=== PATIENT | male | born 1930 | race Caucasian/White ===

== ENCOUNTER 2018-02-13 19:45 | Emergency (ER) | payer OTHER ==
[2018-02-13 20:43] LABS: Urine Blood TRACE (NEG); Urine Glucose NEGATIVE (NEG); Urine Protein TRACE (NEG); Urine Specific Gravity 1.015 (1.005-1.030); Urine pH 7.5 (5.0-7.0)
[2018-02-13 20:44] LABS: Absolute Monocytes 0.9 K/uL (0.1-1.3); Absolute Neutrophil 6.5 K/uL (1.8-8.0); Basophils % 0.9 % (0-1.3); Eosinophils % 1.7 % (0-4.4); Lymphocytes % 27.8 % (15.3-44.8); MCH 27.6 pg (27.0-35.0); MCV 81.5 fL (80-100); MPV 8.8 fL (7.6-11.3); Monocytes % 8.6 % (3.3-12.3)
[2018-02-13 20:50] LABS: Protime INR 0.95
--- NOTE | 2018-02-13 21:24 | RAD REPORT ---
EXAM DESCRIPTION: Kristofer Single View02/13/2018 8:27 pm CLINICAL HISTORY: Chest pain COMPARISON: October 2017 FINDINGS: Haziness overlying the left base probably represents epicardial fat. The lungs appear clear of acute infiltrate. The heart is mildly enlarged. Postsurgical changes involv e the chest IMPRESSION: No acute abnormalities displayed
--- NOTE | 2018-02-14 02:34 | EDPHYS ---
Physician Documentation [facility] Name: Victor Hugo Damon Age: 87 yrs Sex: Male : 1930 Arrival Date: 02/13/2018 Time: 19:48 Bed 7 Private MD: ED Physician Erik Martinez HPI: 02/14 02:27 This 87 yrs old Male presents to ER via EMS with complaints of general gs weakness. 02:27 Onset: The symptoms/episode began/occurred today. Associated signs and symptoms: gs Pertinent negatives: altered mental status, paresthesias. Severity of symptoms: At their worst the symptoms were moderate in the emergency department the symptoms are unchanged. The patient has experienced similar episodes in the past, a few times. Historical: - Allergies: 02/13 20:07 PENICILLINS; ea - Home Meds: 20:07 aspirin 81 mg Oral TbEC 1 tab once daily [Active]; carvedilol 25 mg oral tab 1 tab 2 ea times per day [Active]; amlodipine 5 mg tab 1 tab once daily [Active]; prednisone 20 mg Oral tab 1 tab once daily [Active]; potassium chloride 10 mEq Oral cpER 1 cap once daily [Active]; losartan 50 mg oral tab 1 tab once daily [Active]; clopidogrel 75 mg oral tab 1 tab once daily [Active]; torsemide 10 mg oral tab 1 tab once daily [Active]; - PMHx: 20:07 Hypertension; ea - PSHx: 20:07 CABG; ea - Immunization history:: Adult Immunizations up to date. - Social history:: Smoking status: Patient/guardian denies using tobacco, the patient reports quitting approximately 30 years ago. ROS: 02/14 02:27 Constitutional: Negative for fever. gs Cardiovascular: Negative for chest pain. Respiratory: Negative for pleurisy, shortness of breath. Abdomen/GI: Negative for abdominal pain, nausea, vomiting, and diarrhea. Back: Negative for pain at rest. All other systems are negative. Exam: 02: Head/Face: Normocephalic, atraumatic. Eyes: Pupils equal round and reactive to light, gs extra-ocular motions intact. Lids and lashes normal. Conjunctiva and sclera are non-icteric and not injected. Cornea within normal limits. Periorbital areas with no swelling, redness, or edema. ENT: Nares patent. No nasal discharge, no septal abnormalities noted. Tympanic membranes are normal and external auditory canals are clear. Oropharynx with no redness, swelling, or masses, exudates, or evidence of obstruction, uvula midline. Mucous membranes moist. Neck: Trachea midline, no thyromegaly or masses palpated, and no cervical lymphadenopathy. Supple, full range of motion without nuchal rigidity, or vertebral point tenderness. No Meningismus. Chest/axilla: Normal chest wall appearance and motion. Nontender with no deformity. No lesions are appreciated. Respiratory: Lungs have equal breath sounds bilaterally, clear to auscultation and percussion. No rales, rhonchi or wheezes noted. No increased work of breathing, no retractions or nasal flaring. Abdomen/GI: Soft, non-tender, with normal bowel sounds. No distension or tympany. No guarding or rebound. No evidence of tenderness throughout. Back: No spinal tenderness. No costovertebral tenderness. Full range of motion. Skin: Warm, dry with normal turgor. Normal color with no rashes, no lesions, and no evidence of cellulitis. MS/ Extremity: Pulses equal, no cyanosis. Neurovascular intact. Full, normal range of motion. Neuro: Awake and alert, GCS 15, oriented to person, place, time, and situation. Cranial nerves II-XII grossly intact. Motor strength 5/5 in all extremities. Sensory grossly intact. Cerebellar exam normal. Normal gait. 02:27 Constitutional: The patient appears alert, awake. 02:27 Cardiovascular: Rate: normal, Rhythm: regular, Heart sounds: murmur, systolic, Edema: is not appreciated. 02:27 ECG was reviewed by the Attending Physician. Vital Signs: 02/13 19:23 BP 161 / 60; Pulse 81; Resp 20 S; Temp 98.7(O); Pulse Ox 95% on R/A; Weight 83.91 kg; ea Height 6 ft. 0 in. (182.88 cm) (M); Pain 0/10; 20:38 BP 141 / 56; Pulse 83; Resp 22 S; Pulse Ox 96% on R/A; ea 21:17 BP 141 / 60; Pulse 78; Resp 18 S; Pulse Ox 97% ; ea 22:30 BP 135 / 59; Pulse 79; Resp 18 S; Pulse Ox 98% on R/A; Pain 0/10; ea 23:30 BP 147 / 61; Pulse 83; Resp 19 S; Pulse Ox 97% on R/A; Pain 0/10; ea 02/14 00:30 BP 152 / 86; Pulse 89; Resp 18 S; Pulse Ox 97% on R/A; Pain 0/10; ea 01:45 BP 135 / 56; Pulse 73; Resp 18; Pulse Ox 98% on R/A; Pain 0/10; ea 02:00 BP 135 / 59; Pulse 79; Resp 18 S; Pulse Ox 98% on R/A; Pain 0/10; ea 03:45 BP 127 / 59; Pulse 72; Resp 18 S; Temp 98.0(O); Pulse Ox 98% on R/A; Pain 0/10; ea 04:50 BP 156 / 54; Pulse 77; Resp 19; Pulse Ox 97% on R/A; Pain 0/10; ea 05:30 BP 133 / 60; Pulse 73; Resp 18 S; Pulse Ox 97% ; ea 06:30 BP 112 / 60; Pulse 70; Resp 18 S; Temp 97.8; Pulse Ox 98% on R/A; ea 02/13 19:23 Body Mass Index 25.09 (83.91 kg, 182.88 cm) ea MDM: 02/13 20:01 Patient medically screened. 02/14 02:27 Data reviewed: vital signs, nurses notes. Response to treatment: the patient's symptoms gs have markedly improved after treatment, able to walk without assistance could get up , and as a result, I will discharge patient. 02/13 20:01 Order name: Basic Metabolic Panel 02/13 20:01 Order name: BNP 02/13 20:01 Order name: CBC with Diff 02/13 20:01 Order name: PT-INR 02/13 20:01 Order name: Troponin (emerg Dept Use Only) 02/13 20:26 Order name: Urine Dipstick--Ancillary (enter results) rg2 02/13 20:43 Order name: Urine Dipstick-Ancillary; Complete Time: 23:47 EDMS 02/13 20:46 Order name: CBC with Automated Diff; Complete Time: 23:47 EDMS 02/13 20:55 Order name: Basic Metabolic Panel; Complete Time: 23:47 EDMS 02/13 21:00 Order name: Protime (+INR); Complete Time: 23:47 EDMS 02/13 21:02 Order name: Troponin (Emerg Dept Use Only); Complete Time: 23:47 EDMS 02/13 21:05 Order name: BNP B-Type Natriuretic Peptide; Complete Time: 23:47 EDMS 02/14 00:22 Order name: Troponin I 02/14 01:33 Order name: Troponin I [facility] 02/13 20:01 Order name: XRAY Chest (1 view) 02/13 20:01 Order name: Cardiac monitoring; Complete Time: 20:12 02/13 20:01 Order name: EKG - Nurse/Tech; Complete Time: 20:34 02/13 20:01 Order name: IV Saline Lock; Complete Time: 20:34 02/13 20:01 Order name: Labs collected and sent; Complete Time: 20:34 02/13 20:01 Order name: O2 Per Protocol; Complete Time: 20:35 02/13 20:01 Order name: O2 Sat Monitoring; Complete Time: 20:35 02/13 20:01 Order name: Urine Dipstick-Ancillary (obtain specimen); Complete Time: 20:35 02/13 21:24 Order name: RAD; Complete Time: 23:47 EDMS EC:27 Rate is 83 beats/min. Rhythm is regular. ID interval is normal. QRS interval is normal. gs QT interval is normal. Clinical impression: NSR w/ Non-specific ST/T Changes. Interpreted by me. Administered Medications: No medications were administered Disposition: 02/14/18 02:33 Discharged to Home. Impression: Weakness. - Condition is Stable. - Discharge Instructions: Weakness. - Medication Reconciliation Form, Thank You Letter, Antibiotic Education, Prescription Opioid Use form. - Follow up: John Stahl MD; When: 2 - 3 days; Reason: Re-evaluation by your physician. Signatures: Dispatcher MedAmerican Academic Health SystemKimmie Bartlett RN RN ea Starr, Gregory, MD MD
--- NOTE | 2018-02-14 02:34 | ER ---
Nurse's Notes [facility] Name: Victor Hugo Damon Age: 87 yrs Sex: Male : 1930 Arrival Date: 02/13/2018 Time: 19:48 Bed 7 Private MD: Diagnosis: Weakness Presentation: 02/13 19:48 Presenting complaint: EMS states: Called to [facility] upon arrival patient was ea complaining of weakness. Pt reports he has to have a heart valve replaced but has not been scheduled for it. Transition of care: [facility]. Onset of symptoms was February 13, 2018. Care prior to arrival: None. 19:48 Method Of Arrival: EMS: [facility] ea 19:48 Acuity: ESTHELA 3 ea Triage Assessment: 19:23 General: Appears in no apparent distress. Behavior is calm, cooperative, appropriate ea for age. Pain: Denies pain. Neuro: Level of Consciousness is awake, alert, obeys commands, Oriented to person, place, time, situation, Speech is normal, Facial symmetry appears normal. Cardiovascular: Heart tones S1 S2 present Patient's skin is warm and dry. Respiratory: Airway is patent Respiratory effort is even, unlabored, Respiratory pattern is regular, symmetrical, Breath sounds are clear bilaterally. GI: Abdomen is round Bowel sounds present X 4 quads. Abd is soft and non tender X 4 quads. : No signs and/or symptoms were reported regarding the genitourinary system. Derm: No signs and/or symptoms reported regarding the dermatologic system. Musculoskeletal: No signs and/or symptoms reported regarding the musculoskeletal system. Musculoskeletal: Reports he has been feeling weak lately. Historical: - Allergies: 20:07 PENICILLINS; ea - Home Meds: 20:07 aspirin 81 mg Oral TbEC 1 tab once daily [Active]; carvedilol 25 mg oral tab 1 tab 2 ea times per day [Active]; amlodipine 5 mg tab 1 tab once daily [Active]; prednisone 20 mg Oral tab 1 tab once daily [Active]; potassium chloride 10 mEq Oral cpER 1 cap once daily [Active]; losartan 50 mg oral tab 1 tab once daily [Active]; clopidogrel 75 mg oral tab 1 tab once daily [Active]; torsemide 10 mg oral tab 1 tab once daily [Active]; - PMHx: 20:07 Hypertension; ea - PSHx: 20:07 CABG; ea - Immunization history:: Adult Immunizations up to date. - Social history:: Smoking status: Patient/guardian denies using tobacco, the patient reports quitting approximately 30 years ago. Screenin:10 Abuse screen: Denies threats or abuse. Nutritional screening: No deficits noted. ea Tuberculosis screening: No symptoms or risk factors identified. Fall Risk Gait- Weak (10 pts.). Assessment: 19:30 General: Appears in no apparent distress. Behavior is calm, cooperative, appropriate ea for age. Pain: Denies pain. Neuro: Level of Consciousness is awake, alert, obeys commands, Oriented to person, place, time, situation, Recycle Coordinator are equal bilaterally Moves all extremities. Speech is normal, Facial symmetry appears normal, Intact. Cardiovascular: Patient's skin is warm and dry. Respiratory: Airway is patent Respiratory effort is even, unlabored, Respiratory pattern is regular, symmetrical, Breath sounds are clear bilaterally. GI: Abdomen is round Bowel sounds present X 4 quads. Abd is soft and non tender X 4 quads. : No signs and/or symptoms were reported regarding the genitourinary system. EENT: No signs and/or symptoms were reported regarding the EENT system. Derm: Skin is pink, warm \T\ dry. 20:57 Reassessment: Patient and/or family updated on plan of care and expected duration. Pain ea level reassessed. Patient is alert, oriented x 3, equal unlabored respirations, skin warm/dry/pink. 21:17 Reassessment: Patient and/or family updated on plan of care and expected duration. Pain ea level reassessed. Patient is alert, oriented x 3, equal unlabored respirations, skin warm/dry/pink. 03/18 01:50 Reassessment: Patient and/or family updated on plan of care and expected duration. Pain ea level reassessed. Patient is alert, oriented x 3, equal unlabored respirations, skin warm/dry/pink. 02:15 Reassessment: Patient and/or family updated on plan of care and expected duration. Pain ea level reassessed. Patient is alert, oriented x 3, equal unlabored respirations, skin warm/dry/pink. pt ambulated approx. 20 feet with minimal assist, tolerated well. 03:37 Reassessment: Patient and/or family updated on plan of care and expected duration. Pain ea level reassessed. Patient is alert, oriented x 3, equal unlabored respirations, skin warm/dry/pink. Discharge instructions given to patient, verbalized the understanding of instruction. Awaiting on transportation. 04:25 Reassessment: Pt resting with eyes closed, respirations even and unlabored, chest ea expansions even and symmetrical, no s/s of pain or discomfort noted at this time. Attempted to call family Dane Degroot at [phone], voice message left. 05:45 Reassessment: Pt resting with eyes closed, respirations even and unlabored, chest ea expansions even and symmetrical, no s/s of pain or discomfort noted at this time. 06:22 Reassessment: Patient and/or family updated on plan of care and expected duration. Pain ea level reassessed. Patient is alert, oriented x 3, equal unlabored respirations, skin warm/dry/pink. Family member Dane Degroot called for ETA for [employer], reported she would be here in thirty minutes. Vital Signs: 02/13 19:23 BP 161 / 60; Pulse 81; Resp 20 S; Temp 98.7(O); Pulse Ox 95% on R/A; Weight 83.91 kg; ea Height 6 ft. 0 in. (182.88 cm) (M); Pain 0/10; 20:38 BP 141 / 56; Pulse 83; Resp 22 S; Pulse Ox 96% on R/A; ea 21:17 BP 141 / 60; Pulse 78; Resp 18 S; Pulse Ox 97% ; ea 22:30 BP 135 / 59; Pulse 79; Resp 18 S; Pulse Ox 98% on R/A; Pain 0/10; ea 23:30 BP 147 / 61; Pulse 83; Resp 19 S; Pulse Ox 97% on R/A; Pain 0/10; ea 02/14 00:30 BP 152 / 86; Pulse 89; Resp 18 S; Pulse Ox 97% on R/A; Pain 0/10; ea 01:45 BP 135 / 56; Pulse 73; Resp 18; Pulse Ox 98% on R/A; Pain 0/10; ea 02:00 BP 135 / 59; Pulse 79; Resp 18 S; Pulse Ox 98% on R/A; Pain 0/10; ea 03:45 BP 127 / 59; Pulse 72; Resp 18 S; Temp 98.0(O); Pulse Ox 98% on R/A; Pain 0/10; ea 04:50 BP 156 / 54; Pulse 77; Resp 19; Pulse Ox 97% on R/A; Pain 0/10; ea 05:30 BP 133 / 60; Pulse 73; Resp 18 S; Pulse Ox 97% ; ea 06:30 BP 112 / 60; Pulse 70; Resp 18 S; Temp 97.8; Pulse Ox 98% on R/A; ea 02/13 19:23 Body Mass Index 25.09 (83.91 kg, 182.88 cm) ea ED Course: 02/13 19:48 Patient arrived in ED. ea 19:53 Erik Martinez MD is Attending Physician. gs 20:01 Triage completed. ea 20:11 Kimmie Weathers RN is Primary Nurse. ea 20:11 Patient has correct armband on for positive identification. Placed in gown. Bed in low ea position. Call light in reach. Side rails up X2. 20:11 Arm band placed on right wrist. ea 02/14 02:32 John Stahl MD is Referral Physician. gs 04:07 No provider procedures requiring assistance completed. ea 06:35 IV discontinued, intact, bleeding controlled, No redness/swelling at site. Pressure ea dressing applied. Administered Medications: No medications were administered Outcome: 02:33 Discharge ordered by . gs 03:37 Discharge instructions given to patient, Instructed on discharge instructions, follow ea up and referral plans. Demonstrated understanding of instructions, follow-up care. 06:38 Discharged to home via wheelchair, with family. ea 06:38 Condition: improved 06:49 Patient left the ED. ea Signatures: Kimmie Weathers RN RN ea Starr, Gregory, MD MD Corrections: (The following items were deleted from the chart) 05:45 04:25 Reassessment: Pt resting with eyes closed, respirations even and unlabored, chest ea expansions even and symmetrical, no s/s of pain or discomfort noted at this time. ea 06:01 05:41 Reassessment: andres campos
--- NOTE | 2018-02-14 06:37 | EKG ---
Test Date: 2018-02-13 Test Time: 19:47:34 Menu Planner: MICHAEL MEASUREMENT RESULTS: Intervals: Rate: 82 IN: 176 QRSD: 86 QT: 368 QTc: 429 [place]: P: 58 IN: 176 QRS: 23 T: 121 INTERPRETIVE STATEMENTS: Normal sinus rhythm with sinus arrhythmia Possible Left atrial enlargement Nonspecific ST and T wave abnormality Abnormal ECG Compared to ECG 11/12/2017 22:00:58 Possible ischemia no longer present ST (T wave) deviation still present Electronically Signed On 02-14-18 06:35:23 CDT by Too Vallejo
[2018-02-14 07:06] VITALS: BP 112/60; TEMP 97.8; O2SAT 98
== END 2018-02-14 06:49 | disposition home or self-care (01) ==
LOC: ER 19:45
DX: R53.1 Weakness (principal); I10 Essential (primary) hypertension; Z95.1 Presence of aortocoronary bypass graft; Z88.0 Allergy status to penicillin; Z79.82 Long term (current) use of aspirin
CPT/HCPCS: 36415; 71045; 80048; 81003; 83880; 84484; 85025; 85610; 93005; 99283

== ENCOUNTER 2018-03-16 07:43 | Day surgery (SDC) | payer OTHER ==
[2018-03-16] MEDS ORDERED: NA CHLORIDE 0.9% 500 ML ONE (07:47)
[2018-03-16] MEDS ORDERED: LIDOCAINE 1% 20 ML MDV ONE (08:16)
[2018-03-16] MEDS ORDERED: NA CHLORIDE 0.9% 0 ML ONE (08:16)
[2018-03-16] MEDS ORDERED: HEPA 1000U/500MLS 2,000 UNIT/1,000 ML BAG IV ONE (08:16)
[2018-03-16] MEDS ORDERED: ATROPINE SULF 1 MG/10 ML SYR IV ONE (08:16)
[2018-03-16] MEDS ORDERED: MIDAZOLAM HCL 2 MG/2 ML INJ ONE (08:54)
[2018-03-16] MEDS ORDERED: NA CHLORIDE 0.9% 100 ML IV ONE (08:55)
[2018-03-16 10:31] VITALS: O2SAT 99
[2018-03-16 11:26] VITALS: BP 134/51
[2018-03-16 11:27] VITALS: TEMP 97
--- NOTE | 2018-03-16 20:36 | OP ---
Date of Procedure: 03/16/2018 Surgeon: Ian Wilson MD Machine Adjuster Leader Case Trim: Belle Kirk. Reason For Procedure: Severe aortic stenosis, symptomatic, and coronary artery disease and preparati on for a TAVR. Procedure In Detail: Mr. Damon is an 87, has had CAD, CABG, has known severe aortic stenosis with s ymptoms of dyspnea on exertion, chest pain, fatigue, shortness of breath. He was admitted to the cat [facility] lab before today for left and right heart catheterization as an outpatient. The patient had a 7-Italian sheath introduced in the right common femoral vein, a 6-Italian sheath intr oduced in the right common femoral arteries. Left heart catheterization revealed a completely occlud ed LAD with a patent FRASER to the LAD. He had a patent graft to the OM. His circumflex system was no rmal. RCA was completely occluded. He had a vein graft to the RCA that was normal with about 50% os tial posterior diagonal artery stenosis after the anastomosis of the graft. LV-gram was not done. E jection fraction is known to be normal by echo. Valve area was 0.6 cm sq. by echo. Right heart cath eterization was within normal limit with normal saturation, normal cardiac output about 4.8 L a minut e, normal pressures, normal wedge. The patient tolerated the procedure well. There were no complica tions. Total conscious sedation was 45 minutes. Blood loss was 5 cc. Operators: Ian Wilson M.D. Final Diagnosis: Critical aortic stenosis, patent graft to the FRASER, RCA and OM. Normal right heart catheterization. Plan: Plan is for TAVR. MAYE/ONESIMO Voice ID: [id number] Report ID: [id number]
== END 2018-03-16 11:43 | disposition home or self-care (01) ==
LOC: CCL 07:43
DX: I35.0 Nonrheumatic aortic (valve) stenosis (principal); I25.10 Atherosclerotic heart disease of native coronary artery without angina pectoris; I25.82 Chronic total occlusion of coronary artery; R07.89 Other chest pain; R06.02 Shortness of breath; I10 Essential (primary) hypertension; E78.5 Hyperlipidemia, unspecified; E78.6 Lipoprotein deficiency; R42 Dizziness and giddiness; Z95.1 Presence of aortocoronary bypass graft; Z88.0 Allergy status to penicillin
CPT/HCPCS: 93461; C1893; J2250; 93456; J0583

== ENCOUNTER 2018-07-11 12:24 | Observation (INO) | payer OTHER ==
--- OUTSIDE RECORDS SUMMARY | 2018-07-11 12:27 | XMS REPORT | Clinical Summary ---
:1930 Author Organization [facility] Address [address] [place] [address] Phone Care Team Providers Name Role Phone Unavailable Primary Care Provider Unavailable Allergies Active Allergy Reactions Severity Noted Date Comments Penicillins Swelling 04/19/2018 Current Medications Prescription Sig. Disp. Refills Start Date End Date Status carvedilol (COREG) 25 mg 2 (two) 02/08/2018 Active 25 MG times daily tabletIndications: with breakfast Severe aortic and dinner . stenosis torsemide (DEMADEX) 10 mg daily . 02/26/2018 Active 10 MG tabletIndications: Severe aortic stenosis VIT A/VIT C/VIT Take 1 capsule Active E/ZINC/COPPER by mouth 2 (OCUVITE (two) times PRESERVISION ORAL) daily . glimepiride (AMARYL) Take 0.5 30 tablet 0 05/30/2018 Active 1 MG tablet tablets (0.5 mg 9 total) by mouth daily with breakfast. clopidogrel (PLAVIX) Take 1 tablet 30 tablet 0 05/30/2018 Active 75 mg tablet (75 mg total) 9 by mouth daily. NIFEdipine (ADALAT Take 1 tablet 30 tablet 0 05/30/2018 Active CC) 90 MG 24 hr (90 mg total) 9 tablet by mouth daily. warfarin (COUMADIN) Take 1 tablet 30 tablet 0 05/29/2018 Active 7.5 MG tablet (7.5 mg total) 9 by mouth every other day. warfarin (COUMADIN) Take 1 tablet 30 tablet 0 05/29/2018 Active 5 MG tablet (5 mg total) by 9 mouth every other day. predniSONE Take 1 tablet 30 tablet 0 06/06/2018 Active (DELTASONE) 5 MG (5 mg total) by 8 tablet mouth daily for 60 days. losartan (COZAAR) 50 50 mg daily . 03/16/2018 Discontinued MG 8 tabletIndications: Severe aortic stenosis potassium chloride 10 mEq daily . 02/08/2018 Discontinued (KLOR-CON) 10 MEQ CR 8 tabletIndications: Severe aortic stenosis amLODIPine (NORVASC) 5 mg daily . 03/16/2018 Discontinued 5 MG 8 tabletIndications: Severe aortic stenosis predniSONE 20 mg daily . 02/22/2018 Discontinued (DELTASONE) 20 MG 8 tabletIndications: Severe aortic stenosis aspirin 81 MG EC Take 81 mg by Discontinued tabletIndications: mouth daily. 8 Severe aortic stenosis acetylcysteine (NAC) Take by mouth. Discontinued 600 mg Cap 8 QUEtiapine Take 0.5 30 tablet 0 05/29/2018 (SEROQUEL) 25 MG tablets (12.5 8 tablet mg total) by mouth nightly for 30 days. predniSONE Take 1.5 7 tablet 0 05/29/2018 (DELTASONE) 5 MG tablets (7.5 mg 8 tablet total) by mouth daily for 7 days. Active Problems Problem Noted Date Atrial fibrillation, transient (HCC) 05/29/2018 Urinary incontinence 05/29/2018 Altered mental status, unspecified 05/20/2018 Chronic diastolic CHF (congestive heart failure), NYHA class 3 ([facility]) 2017 Frailty 05/19/2018 Advanced age 0605/19/2018 Hyperlipidemia 04/28/2018 PVD (peripheral vascular disease) ([facility]) 04/28/2018 CKD (chronic kidney disease) 04/28/2018 Severe aortic stenosis Coronary artery disease Hypertension Carotid arterial disease ([facility]) Encounters Date Type Specialty Care Team Description 05/19/2018 - Hospital Encounter Cardiology Cristobal Moreno Advanced age; Severe 05/30/2018 MD Nelson aortic stenosis 05/19/2018 Orders Only General Internal Medicine 05/19/2018 Anesthesia Event Johnson Peralta MD 05/19/2018 Procedure Pass 05/19/2018 Surgery Cristobal Moreno TAVR / CHEO [facility] - IP MD Nelson PROC ONLY 04/21/2018 Hospital Encounter Cristobal Moreno MD 04/21/2018 Office Visit Cardiology Joseph Tsai Jinkins, MD unspecified hyperlipidemia type;PVD (peripheral vascular disease) ([facility]);Stage 2 chronic kidney disease 04/19/2018 Office Visit Cardiology Cipriano, Severe aortic Sudhir Alethea, stenosis;Coronary MD artery disease involving [place] coronary artery of [place] heart without angina pectoris;Essential hypertension;Carotid artery disease, unspecified laterality ([facility]) 04/19/2018 Hospital Encounter Radiology Cristobal Moreno Aortic valve stenosisNelson MD etiology of cardiac valve disease unspecified 04/19/2018 Hospital Encounter Radiology Cristobal Moreno Aortic valve stenosisNelson MD etiology of cardiac valve disease unspecified 04/15/2018 Outside Orders Central Scheduling Cristobal Moreno Aortic valve stenosisNelson MD etiology of cardiac valve disease unspecified (Primary Dx) after 07/10/2017 Family History Medical History Relation Name Comments Heart disease Brother Heart disease Father Cancer Mother Relation Name Status Comments Brother Father Mother Social History Tobacco Use Types Packs/Day Years Used Date Former Smoker Cigarettes 1.5 32 Quit: 01/28/1979 Smokeless Tobacco: Never Used Alcohol Use Drinks/Week oz/Week Comments No Sex Assigned at Date Recorded Not on file Last Filed Vital Signs Vital Sign Reading Time Taken Blood Pressure 149/67 05/30/2018 7:55 AM CDT Pulse 62 05/30/2018 7:55 AM CDT Temperature 36.5 C (97.7 F) 05/30/2018 7:55 AM CDT Respiratory Rate 18 05/30/2018 7:55 AM CDT Oxygen Saturation 98% 05/30/2018 7:55 AM CDT Inhaled Oxygen Concentration - - Weight 93.4 kg (205 lb 14.6 oz) 05/24/2018 6:00 AM CDT Height 182.9 cm (6') 05/24/2018 11:05 AM CDT Body Mass Index 27.93 05/24/2018 6:00 AM CDT Plan of Treatment Health Maintenance Due Date Last Done Comments INFLUENZA VACCINE 08/30/2018 Implants Implanted Type Area [employer] Device Expiration Date Model / Identifier Serial / Lot Valve Heart [place] 3 26mm [id number] - [id number] Valves PASTRANA [employer] [id number] / Implanted: Qty: 1 on 05/19/2018 by Cristobal Moreno MD [id number] / Procedures Procedure Name Priority Date/Time Associated Diagnosis Comments TAVR / CHEO MCR - IP 05/19/2018 7:30 AM Nonrheumatic aortic PROC ONLY CDT valve stenosis Case Notes (1) POP6 TAVR (CV ANES) DEVANTE Special Needs SCOT [phone]/SHAWN after 07/10/2017 Results RHYTHM STRIP - SCAN (06/01/2018 8:10 AM)POC-Glucose meter (05/30/2018 8:21 AM) Only the most recent of32 resultswithin the time period is included. Component Value Ref Range POC-Glucose Meter 112 (H)Comment: TESTED AT [address] 70 - 110 mg/[place] [id number] Specimen Performing Laboratory Blood [address] [address] Prothrombin time/INR (05/30/2018 4:31 AM)Only the most recent of8 resultswithin the time period is included. Component Value Ref Range Protime 22.3 (H) 11.7 - 14.7 seconds INR 2.0 <=5.9 Specimen Performing Laboratory Blood - Arm, Right [address] [address] Narrative RECOMMENDED COUMADIN/WARFARIN INR THERAPY RANGES STANDARD DOSE: 2.0 - 3.0 Includes: PROPHYLAXIS for venous thrombosis, systemic embolization; TREATMENT for venous thrombosis and/or pulmonary embolus. HIGH RISK: Target INR is 2.5-3.5 for patients with mechanical heart valves. CBC (Hemogram only) (05/30/2018 4:31 AM)Only the most recent of8 resultswithin the time period is included. Component Value Ref Range WBC 10.0 3.5 - 10.5 K/L RBC 3.44 (L) 4.63 - 6.08 M/L Hemoglobin 9.6 (L) 13.7 - 17.5 GM/DL Hematocrit 30.8 (L) 40.1 - 51.0 % MCV 89.5 79.0 - 92.2 fL MCH 27.9 25.7 - 32.2 pg MCHC 31.2 (L) 32.3 - 36.5 GM/DL RDW 16.1 (H) 11.6 - 14.4 % Platelets 169 150 - 450 K/CU MM MPV 11.5 9.4 - 12.4 fL nRBC 0 0 - 0 /100 WBC Specimen Performing Laboratory Blood - Arm, Right [address] [address] Basic Metabolic Panel (05/30/2018 4:31 AM)Only the most recent of11 resultswithin the time period is included. Component Value Ref Range Sodium 136 136 - 145 meq/L Potassium 3.7 3.5 - 5.1 meq/L Chloride 101 98 - 107 meq/L CO2 26 22 - 29 meq/L BUN 28 (H) 7 - 21 mg/dL Creatinine 1.31 (H) 0.57 - 1.25 mg/dL Glucose 74 70 - 105 mg/dL Calcium 8.9 8.4 - 10.2 mg/dL EGFR 52Comment: ESTIMATED GFR IS NOT ACCURATE mL/min/1.73 sq m CREATININE CLEARANCE IN PREDICTING GLOMERULAR FILTRATION RATE. ESTIMATED GFR IS NOT APPLICABLE FOR DIALYSIS PATIENTS. Specimen Performing Laboratory Blood - Arm, Right [address] [address] Magnesium (05/28/2018 5:53 AM)Only the most recent of9 resultswithin the time period is included. Component Value Ref Range Magnesium 2.3 1.6 - 2.6 mg/dL Specimen Performing Laboratory Blood - Arm, Left [address] [address] Transfuse Leuko-Red RBC (05/26/2018 1:11 PM)Only the most recent of2 resultswithin the time period is included.CBC with platelet count + automated diff (05/26/2018 6:27 AM)Only the most recent of3 resultswithin the time period is included. Component Value Ref Range WBC 12.2 (H) 3.5 - 10.5 K/L RBC 3.70 (L) 4.63 - 6.08 M/L Hemoglobin 10.6 (L) 13.7 - 17.5 GM/DL Hematocrit 33.2 (L) 40.1 - 51.0 % MCV 89.7 79.0 - 92.2 fL MCH 28.6 25.7 - 32.2 pg MCHC 31.9 (L) 32.3 - 36.5 GM/DL RDW 15.9 (H) 11.6 - 14.4 % Platelets 137 (L) 150 - 450 K/CU MM MPV 11.1 9.4 - 12.4 fL nRBC 0 0 - 0 /100 WBC % Neutros 54 % % Lymphs 33 % % Monos 8 % % Eos 3 % % Baso 0 % # Neutros 6.59 (H) 1.78 - 5.38 K/L # Lymphs 3.96 (H) 1.32 - 3.57 K/L # Monos 1.00 (H) 0.30 - 0.82 K/L # Eos 0.30 0.04 - 0.54 K/L # Baso 0.05 0.01 - 0.08 K/L Immature Granulocytes-Relative 2 (H) 0 - 1 % Specimen Performing Laboratory Blood - Arm, Right [address] [address] CBC with platelet count + automated diff (05/26/2018 6:27 AM)Only the most recent of3 resultswithin the time period is included. Specimen Performing Laboratory Blood Narrative The following orders were created for panel order CBC with platelet count + automated diff. Procedure Abnormality Status --------- ------ CBC with platelet count ...[[id number]]AbnormalFinal result Please view results for these tests on the individual orders. CT brain without IV contrast (05/25/2018 7:04 PM)Only the most recent of2 resultswithin the time period is included. Specimen Performing Laboratory [facility] RIS Narrative FINAL REPORT CT head without contrast 05/25/2018 7:14 PM CLINICAL HISTORY: encephalopathy TECHNIQUE: Axial noncontrast CT images through the head were obtained. This examination was performed according to our departmental dose optimization program, which includes automated exposure control, adjustment of the mA and/or kV according to patient size, and/or use of iterated reconstruction technique. COMPARISON: 05/23/2018 FINDINGS: There is no hemorrhage, extra-axial collection, mass, hydrocephalus, or midline shift. Again seen are multifocal punctate and small recent and chronic infarcts without hemorrhagic transformation or mass effect. There is atherosclerotic calcification of the intracranial arterial vasculature. There is generalized parenchymal volume loss. There is paranasal sinus mucosal thickening without fluid levels. There is evidence for prior sinus surgery. The tympanomastoid cavities are clear. The skull is unremarkable. The visualized paranasal sinuses and mastoid air cells are well aerated. The skull is intact. IMPRESSION: 1. No intracranial hemorrhage or mass effect. 2. Stable intracranial appearance when compared to 05/23/2018. 3. If concern for new pathology persists, further evaluation with MRI is recommended. Signed: Micheal Boykin MD Report Verified Date/Time:05/25/2018 19:17:21 Reading Location: [facility] Radiology Reading Room Procedure Note Interface, External Ris In - 05/25/2018 7:19 PM CDT FINAL REPORT CT head without contrast 05/25/2018 7:14 PM CLINICAL HISTORY: encephalopathy TECHNIQUE: Axial noncontrast CT images through the head were obtained. This examination was performed according to our departmental dose optimization program, which includes automated exposure control, adjustment of the mA and/or kV according to patient size, and/or use of iterated reconstruction technique. COMPARISON: 05/23/2018 FINDINGS: There is no hemorrhage, extra-axial collection, mass, hydrocephalus, or midline shift. Again seen are multifocal punctate and small recent and chronic infarcts without hemorrhagic transformation or mass effect. There is atherosclerotic calcification of the intracranial arterial vasculature. There is generalized parenchymal volume loss. There is paranasal sinus mucosal thickening without fluid levels. There is evidence for prior sinus surgery. The tympanomastoid cavities are clear. The skull is unremarkable. The visualized paranasal sinuses and mastoid air cells are well aerated. The skull is intact. IMPRESSION: 1. No intracranial hemorrhage or mass effect. 2. Stable intracranial appearance when compared to 05/23/2018. 3. If concern for new pathology persists, further evaluation with MRI is recommended. Signed: Micheal Boykin MD Report Verified Date/Time: 05/25/2018 19:17:21 Reading Location: [facility] Radiology Reading Room SFUSION SERVICE REPORT - SCAN (05/25/2018 6:00 PM)Only the most recent of4 resultswithin the time period is included.Prepare Leuko-Red RBC (05/24/2018 11: 54 PM) Component Value Ref Range CROSSMATCH COMPATIBLE Unit ABO O Pos UNIT NUMBER [id number] Status TRANSFUSED Blood Bank Product RED BLOOD CELLS PRODUCT CODE [id number] Specimen Performing Laboratory Other [employer] [place] Type and screen, automated (05/23/2018 11:30 AM)Only the most recent of2 resultswithin the time period is included. Component Value Ref Range ABO/RH AUTOMATED (BEAKER) O POSITIVE Ab Scrn NEGATIVE Specimen Performing Laboratory [address] [address] aPTT (05/23/2018 6:15 AM)Only the most recent of6 resultswithin the time period is included. Component Value Ref Range PTT 94.3 (H) 22.5 - 36.0 seconds Specimen Performing Laboratory Blood [address] [address] Iron, TIBC, % sat. (without ferritin) (05/23/2018 5:25 AM) Component Value Ref Range Iron 63 40 - 160 ug/dL TIBC 224 (L) 250 - 450 ug/dL Iron % Saturation 28 20 - 55 % Specimen Performing Laboratory Blood [address] [address] Ferritin (05/23/2018 5:25 AM) Component Value Ref Range Ferritin 435 (H) 5 - 275 ng/mL Specimen Performing Laboratory [address] [address] ECG 12 lead (05/22/2018 1:56 PM)Only the most recent of4 resultswithin the time period is included. Specimen Performing Laboratory GE MUSE Narrative Ventricular Rate 80 BPM Atrial Rate 80 BPM P-R Interval 164 ms QRS Duration 100 ms Q-T Interval 394 ms QTC Calculation(Bazett) 454 ms P [place] 23 degrees R Lead[place] 29 degrees T [place] 194 degrees Sinus rhythm with marked sinus arrhythmia ST & T wave abnormality, consider inferolateral ischemia Abnormal ECG When compared with ECG of 20-MAY-2018 06:03, ST no longer depressed in Lateral leads T wave inversion now evident in Inferior leads T wave inversion now evident in Anterior leads Confirmed by MD TERESA, SHANE ([id number]) on 05/22/2018 2:20:53 PM Procedure Note Interface, External Ris In - 05/22/2018 2:21 PM CDT Ventricular Rate 80 BPM Atrial Rate 80 BPM P-R Interval 164 ms QRS Duration 100 ms Q-T Interval 394 ms QTC Calculation(Bazett) 454 ms P [place] 23 degrees R [place] 29 degrees T [place] 194 degrees Sinus rhythm with marked sinus arrhythmia ST & T wave abnormality, consider inferolateral ischemia Abnormal ECG When compared with ECG of 20-MAY-2018 06:03, ST no longer depressed in Lateral leads T wave inversion now evident in Inferior leads T wave inversion now evident in Anterior leads Confirmed by MD MOORE ZVONIMIR ([id number]) on 05/22/2018 2:20:53 PM PT/aPTT (05/22/2018 2:19 AM)Only the most recent of3 resultswithin the time period is included. Component Value Ref Range Protime 15.0 (H) 11.7 - 14.7 seconds INR 1.2 <=5.9 PTT 179.7 (HH) 22.5 - 36.0 seconds Specimen Performing Laboratory Blood [address] [address] Narrative RECOMMENDED COUMADIN/WARFARIN INR THERAPY RANGES STANDARD DOSE: 2.0 - 3.0 Includes: PROPHYLAXIS for venous thrombosis, systemic embolization; TREATMENT for venous thrombosis and/or pulmonary embolus. HIGH RISK: Target INR is 2.5-3.5 for patients with mechanical heart valves. Calcium, Ionized (05/22/2018 2:19 AM)Only the most recent of2 resultswithin the time period is included. Component Value Ref Range Calcium, Ion 1.15 1.12 - 1.27 mmol/L pH, Blood 7.40 Specimen Performing Laboratory Blood [address] [address] Phosphorus (05/22/2018 2:19 AM)Only the most recent of3 resultswithin the time period is included. Component Value Ref Range Phosphorus 3.6 2.3 - 4.7 mg/dL Specimen Performing Laboratory Blood [address] [address] Vancomycin level, random (05/22/2018 2:19 AM) Component Value Ref Range Vancomycin Rm 24.4 ug/mL Specimen Performing Laboratory Blood [facility] [address] [place] [address] Narrative Reference Range: No Normals MR brain without IV contrast (05/21/2018 11:53 AM) Specimen Performing Laboratory GE RIS Narrative FINAL REPORT MRI Brain without contrast Clinical History: Stroke Technique: MRI of the brain utilizing axial T2, FLAIR, GRE, DWI; sagittal and coronal T1-weighted images. Comparisons: CT 05/19/2018 Findings: There is multifocal acute infarction throughout the left greater than right cerebral hemispheres and bilateral cerebellum. There are chronic right frontal and parietal lobe infarcts. There is a chronic lacunar infarct right caudate. There is no evidence of acute hemorrhage. There is small focal hemosiderin in the right frontal lobe. There is periventricular and subcortical white matter T2 hyperintensity, which is nonspecific but compatible with chronic microvascular ischemic change. There is generalized parenchymal volume loss without hydrocephalus, midline shift, or apparent mass effect. There are no extra-axial fluid collections. The craniocervical junction is preserved. The major intracranial flow-voids appear patent. 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 Clinical correlation is requested. 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 No acute hemorrhage. Signed: Jaycob Alvarado MD Report Verified Date/Time:05/21/2018 11:58:08 Reading Location: [facility] Neuro Reading Room Procedure Note Interface, External Ris In - 05/21/2018 12:00 PM CDT FINAL REPORT MRI Brain without contrast Clinical History: Stroke Technique: MRI of the brain utilizing axial T2, FLAIR, GRE, DWI; sagittal and coronal T1-weighted images. Comparisons: CT 05/19/2018 Findings: There is multifocal acute infarction throughout the left greater than right cerebral hemispheres and bilateral cerebellum. There are chronic right frontal and parietal lobe infarcts. There is a chronic lacunar infarct right caudate. There is no evidence of acute hemorrhage. There is small focal hemosiderin in the right frontal lobe. There is periventricular and subcortical white matter T2 hyperintensity, which is nonspecific but compatible with chronic microvascular ischemic change. There is generalized parenchymal volume loss without hydrocephalus, midline shift, or apparent mass effect. There are no extra-axial fluid collections. The craniocervical junction is preserved. The major intracranial flow-voids appear patent. 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 Clinical correlation is requested. 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 No acute hemorrhage. Signed: Jaycob Alvarado MD Report Verified Date/Time: 05/21/2018 11:58:08 Reading Location: [address] Neuro Reading Room neck without IV contrast (05/21/2018 11:53 AM) Specimen Performing Laboratory [employer] RIS Narrative FINAL REPORT MRA Head and Neck CLINICAL HISTORY: Stroke TECHNIQUE: MRA of the head utilizing 3-D okrw-zl-mtcccl technique, with 3-D reconstructions. MRA of the neck utilizing 2-D and 3-D iwje-eg-cmgpzw technique, with 3-D reconstructions. COMPARISON: None FINDINGS: There is no evidence for a [place] proximal branch vessel occlusion. There is no definitive evidence for aneurysm. 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 There is mild to moderate stenosis of the bilateral proximal anterior cerebral arteries in the proximal left middle cerebral artery. There is 20% stenosis of the proximal right internal carotid artery by NASCET criteria. There is no focal narrowing of the proximal left internal carotid artery. There are mild stenoses of the bilateral cervical vertebral arteries. IMPRESSION: No evidence for a [place] proximal branch vessel occlusion. No hemodynamically significant stenosis in the internal carotid arteries. 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 Signed: Jaycob Alvarado MD Report Verified Date/Time:05/21/2018 12:04:26 Reading Location: [address] Neuro Reading Room Procedure Note Interface, External Ris In - 05/21/2018 12:06 PM CDT FINAL REPORT MRA Head and Neck CLINICAL HISTORY: Stroke TECHNIQUE: MRA of the head utilizing 3-D pdjh-mg-nfxlnj technique, with 3-D reconstructions. MRA of the neck utilizing 2-D and 3-D yznn-si-akdzco technique, with 3-D reconstructions. COMPARISON: None FINDINGS: There is no evidence for a [place] proximal branch vessel occlusion. There is no definitive evidence for aneurysm. 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 There is mild to moderate stenosis of the bilateral proximal anterior cerebral arteries in the proximal left middle cerebral artery. There is 20% stenosis of the proximal right internal carotid artery by NASCET criteria. There is no focal narrowing of the proximal left internal carotid artery. There are mild stenoses of the bilateral cervical vertebral arteries. IMPRESSION: No evidence for a [place] proximal branch vessel occlusion. No hemodynamically significant stenosis in the internal carotid arteries. 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 Signed: Jaycob Alvarado MD Report Verified Date/Time: 05/21/2018 12:04:26 Reading Location: [address] Neuro Reading Room head without IV contrast (05/21/2018 11:53 AM) Specimen Performing Laboratory [employer] FINAL REPORT MRA Head and Neck CLINICAL HISTORY: Stroke TECHNIQUE: MRA of the head utilizing 3-D bixx-yp-aiigrp technique, with 3-D reconstructions. MRA of the neck utilizing 2-D and 3-D tvpg-td-wbbeif technique, with 3-D reconstructions. COMPARISON: None FINDINGS: There is no evidence for a [place] proximal branch vessel occlusion. There is no definitive evidence for aneurysm. 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 There is mild to moderate stenosis of the bilateral proximal anterior cerebral arteries in the proximal left middle cerebral artery. There is 20% stenosis of the proximal right internal carotid artery by NASCET criteria. There is no focal narrowing of the proximal left internal carotid artery. There are mild stenoses of the bilateral cervical vertebral arteries. IMPRESSION: No evidence for a [place] proximal branch vessel occlusion. No hemodynamically significant stenosis in the internal carotid arteries. 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 Signed: Jaycob Alvarado MD Report Verified Date/Time:05/21/2018 12:04:26 Reading Location: [place] [id number] Neuro Reading Room Procedure Note Interface, External Ris In - 05/21/2018 12:06 PM CDT FINAL REPORT MRA Head and Neck CLINICAL HISTORY: Stroke TECHNIQUE: MRA of the head utilizing 3-D jrwb-bq-vsqnha technique, with 3-D reconstructions. MRA of the neck utilizing 2-D and 3-D iavm-oj-ozayrr technique, with 3-D reconstructions. COMPARISON: None FINDINGS: There is no evidence for a [place] proximal branch vessel occlusion. There is no definitive evidence for aneurysm. 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 There is mild to moderate stenosis of the bilateral proximal anterior cerebral arteries in the proximal left middle cerebral artery. There is 20% stenosis of the proximal right internal carotid artery by NASCET criteria. There is no focal narrowing of the proximal left internal carotid artery. There are mild stenoses of the bilateral cervical vertebral arteries. IMPRESSION: No evidence for a [place] of [place] proximal branch vessel occlusion. No hemodynamically significant stenosis in the internal carotid arteries. 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 Signed: Jaycob Alvarado MD Report Verified Date/Time: 05/21/2018 12:04:26 Reading Location: [facility] C013V Neuro Reading Room chest 1 view portable / bedside (05/21/2018 7:27 AM)Only the most recent of2 resultswithin the time period is included. Specimen Performing Laboratory GE RIS Narrative FINAL REPORT Portable chest CLINICAL HISTORY: Hypoxemia. COMPARISON STUDY: May 19, 2018. FINDINGS: The cardiac silhouette is unremarkable. The patient is status post sternotomy and valve replacement. There are increased interstitial markings with atelectatic changes in the lung bases and costophrenic angle blunting. No pneumothorax is noted. Degenerative changes are seen. IMPRESSION: No significant change. Signed: Addy Zapata MD Report Verified Date/Time:05/21/2018 10:54:40 Reading Location: [place] [id number] Ortho Consult Reading Room Procedure Note Interface, External Ris In - 05/21/2018 10:56 AM CDT FINAL REPORT Portable chest CLINICAL HISTORY: Hypoxemia. COMPARISON STUDY: May 19, 2018. FINDINGS: The cardiac silhouette is unremarkable. The patient is status post sternotomy and valve replacement. There are increased interstitial markings with atelectatic changes in the lung bases and costophrenic angle blunting. No pneumothorax is noted. Degenerative changes are seen. IMPRESSION: No significant change. Signed: Addy Zapata MD Report Verified Date/Time: 05/21/2018 10:54:40 Reading Location: [address] Ortho Consult Reading Room /Free T4 If Indicated (05/21/2018 2:59 AM) Component Value Ref Range TSH 0.77 0.35 - 4.94 uIU/mL Specimen Performing Laboratory Blood [address] [address] Hemoglobin A1c (05/21/2018 2:59 AM) Component Value Ref Range Hemoglobin A1C 8.1 (H) 4.3 - 6.1 % Specimen Performing Laboratory Blood [address] [address] Vitamin B12 (05/21/2018 2:59 AM) Component Value Ref Range Vitamin B12 692 213 - 816 pg/mL Specimen Performing Laboratory Blood [address] [address] Lipid panel (05/21/2018 2:59 AM) Component Value Ref Range Triglycerides 348 mg/dL Cholesterol 208 mg/dL HDL 26 mg/dL LDL Calculated 112 mg/dL Specimen Performing Laboratory Blood [address] [address] Narrative Triglyceride Reference Range: Low Risk <150 [id number] High Risk 200-499 Very High Risk>=500 Cholesterol Reference Range: Low Risk <200 [id number] High Risk>240 HDL Cholesterol Reference Range: Low Risk >=60 High Risk <40 LDL Cholesterol Reference Range: Optimal<100 Near Sctcsgc008-419 Hxsjfpmosl965-362 Ilau049-363 Very High >=190 ECHOCARDIOGRAM REPORT - SCAN (05/20/2018 6:50 PM)Only the most recent of2 resultswithin the time period is included.CARDIAC CATH REPORT - SCAN (2017 3:41 PM)EEG AWAKE AND DROWSY (05/20/2018 2:38 PM) Specimen Performing Laboratory [place] Narrative Date(s) of EE05/20/2018 DATE OF REPORT: 05/20/2018 ACC: [id number] EEG Number: [id number] Test Location: Inpatient ICU Start time: 14:17 Stop time: 14:38 ICD-10: R56.9 CPT Code: 73867 HISTORY: 87 y.o. 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 On nursing reassessment ~7:30pm, he was noted to be drowsy w/ slurring of speech though reportedly answering all orientation questions. Current symptoms include lethargy, slurred speech, possible R facial droop, and possible R hand weakness. Symptoms are currently waxing and waning. MEDICATIONS THAT COULD AFFECT EEG: None TECHNICAL SUMMARY: This is a digital video-EEG recorded with 32 input channels reviewed with bipolar and referential montages using the modified combinatorial system nomenclature. DESCRIPTION OF RECORD: During the stimulated state, the background frequency spectrum consists primarily of diffuse, 4-6 Hz theta, 2-3 Hz widespread but fronto-centrally predominant delta, as well as some diffuse beta. At times, there are occasional left-sided parietal sharply contoured waveforms (maximal at P7) with a limited field. Neither an occipital dominant rhythm, nor an organized frequency amplitude gradient is well demonstrable. SIGNIFICANT VIDEO EVENTS: None SIGNIFICANT ELECTROCARDIOGRAM EVENTS: None HV: Hyperventilation was not performed. PHOTIC STIMULATION: Photic stimulation was done from 1-33 Hz; no photic driving was seen; photoparoxysmal responses were absent. IMPRESSION: Abnormal Coma EEG 1-Moderate diffuse slowing of the background rhythms 2-Possible sharp waves maximal at P7. CLINICAL CORRELATION: Diffuse slowing supports an underlying moderate encephalopathy, possibly of metabolic origin. In the appropriate clinical context, focal sharp waves can indicate a potential seizure focus. . Kita Rooney MD Neurophysiology Fellow, PGY5 Linette Choe MD Attending Neurophysiologist [facility] Procedure Note Interface, External Ris In - 05/20/2018 3:54 PM CDT Date(s) of EE05/20/2018 DATE OF REPORT: 05/20/2018 ACC: [id number] EEG Number: [id number] Test Location: Inpatient ICU Start time: 14:17 Stop time: 14:38 ICD-10: R56.9 CPT Code: 91704 HISTORY: 87 y.o. 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 On nursing reassessment ~7:30pm, he was noted to be drowsy w/ slurring of speech though reportedly answering all orientation questions. Current symptoms include lethargy, slurred speech, possible R facial droop, and possible R hand weakness. Symptoms are currently waxing and waning. MEDICATIONS THAT COULD AFFECT EEG: None TECHNICAL SUMMARY: This is a digital video-EEG recorded with 32 input channels reviewed with bipolar and referential montages using the modified combinatorial system nomenclature. DESCRIPTION OF RECORD: During the stimulated state, the background frequency spectrum consists primarily of diffuse, 4-6 Hz theta, 2-3 Hz widespread but fronto-centrally predominant delta, as well as some diffuse beta. At times, there are occasional left-sided parietal sharply contoured waveforms (maximal at P7) with a limited field. Neither an occipital dominant rhythm, nor an organized frequency amplitude gradient is well demonstrable. SIGNIFICANT VIDEO EVENTS: None SIGNIFICANT ELECTROCARDIOGRAM EVENTS: None HV: Hyperventilation was not performed. PHOTIC STIMULATION: Photic stimulation was done from 1-33 Hz; no photic driving was seen; photoparoxysmal responses were absent. IMPRESSION: Abnormal Coma EEG 1- Moderate diffuse slowing of the background rhythms 2- Possible sharp waves maximal at P7. CLINICAL CORRELATION: Diffuse slowing supports an underlying moderate encephalopathy, possibly of metabolic origin. In the appropriate clinical context, focal sharp waves can indicate a potential seizure focus. . Kita Rooney MD Neurophysiology Fellow, PGY5 Linette Choe MD Attending Neurophysiologist [facility] abdomen / KUB 1 view (05/20/2018 11:22 AM) Specimen Performing Laboratory GE RIS Narrative FINAL REPORT Abdomen one view INDICATION: Nasogastric tube insertion COMPARISON: None available IMPRESSION: NG tube extends to the gastric body. The imaged bowel gas pattern is nonspecific. There are degenerative spine changes and incidental vascular calcifications. The imaged chest is similar to 05/19/2018. Signed: Virgil Kraft MD Report Verified Date/Time:05/20/2018 11:33:02 Reading Location: [facility] Radiology Reading Room Procedure Note Interface, External Ris In - 05/20/2018 11:35 AM CDT FINAL REPORT Abdomen one view INDICATION: Nasogastric tube insertion COMPARISON: None available IMPRESSION: NG tube extends to the gastric body. The imaged bowel gas pattern is nonspecific. There are degenerative spine changes and incidental vascular calcifications. The imaged chest is similar to 05/19/2018. Signed: Virgil Kraft MD Report Verified Date/Time: 05/20/2018 11:33:02 Reading Location: [facility] Radiology Reading Room Troponin I (05/20/2018 11:05 AM)Only the most recent of2 resultswithin the time period is included. Component Value Ref Range Troponin I 1.13 (HH) 0.00 - 0.03 ng/mL Specimen Performing Laboratory Blood - Arm, [place] [address] Narrative Troponin I (TnI) levels must be interpreted in the context of the presenting symptoms and the clinical findings. Elevated TnI levels indicate myocardial damage, but are not specific for ischemic heart disease. Elevated TnI levels are seen in patients with other cardiac conditions (including myocarditis and congestive heart failure), and slight TnI elevations occur in patients with other conditions, including sepsis, renal failure, acidosis, acute neurological disease, and persistent tachyarrhythmia. Lactic acid, venous, whole blood (05/20/2018 11:05 AM) Component Value Ref Range Lactate, Venous 2.1 0.5 - 2.2 mmol/L Specimen Performing Laboratory Blood - Arm, [address] [address] Narrative Effective 04/02/2016: Units/Reference Range Change New: 0.5-2.2 mmol/LPrevious: 5-20 mg/dL Blood gas, venous (05/20/2018 11:05 AM) Component Value Ref Range pH, Phil 7.40 7.32 - 7.42 pCO2, Phil 45 41 - 51 mmHg pO2, Phil 26 25 - 40 mmHg O2 Sat, Phil 46.3 40.0 - 70.0 % HCO3, Phil 27 21 - 29 mmol/L Base Excess, Phil 1.8 -2.0 - 3.0 mmol/L Patient Temperature 36.9 C FIO2 36.0 % Specimen Performing Laboratory Blood - Arm, [address] [address] Creatine Kinase (CK), Total and MB (05/20/2018 11:05 AM)Only the most recent of2 resultswithin the time period is included. Component Value Ref Range Total CK 138 29 - 200 U/L CK-MB 4.2 0.0 - 6.6 ng/mL MB Relative Index 3.0 % Specimen Performing Laboratory Blood - Arm, [address] [address] Narrative CK-MB Reference Range: <6.7Normal 6.7-10.0Borderline >10.0 Abnormal Comprehensive metabolic panel (05/20/2018 11:05 AM)Only the most recent of2 resultswithin the time period is included. Component Value Ref Range Protein, Total 5.7 (L) 6.0 - 8.3 gm/dL Albumin 3.4 (L) 3.5 - 5.0 g/dL Alkaline Phosphatase 42 40 - 150 U/L Total Bilirubin 0.8 0.2 - 1.2 mg/dL Sodium 139 136 - 145 meq/L Potassium 4.2 3.5 - 5.1 meq/L Chloride 100 98 - 107 meq/L CO2 23 22 - 29 meq/L BUN 38 (H) 7 - 21 mg/dL Creatinine 2.17 (H) 0.57 - 1.25 mg/dL Glucose 129 (H) 70 - 105 mg/dL Calcium 9.0 8.4 - 10.2 mg/dL AST 27 5 - 34 U/L ALT 14 6 - 55 U/L EGFR 29Comment: ESTIMATED GFR IS NOT ACCURATE mL/min/1.73 sq m CREATININE CLEARANCE IN PREDICTING GLOMERULAR FILTRATION RATE. ESTIMATED GFR IS NOT APPLICABLE FOR DIALYSIS PATIENTS. Specimen Performing Laboratory Blood - Arm, Right [facility] [address] [address] 2D Echo W/Doppler(CW/PW/Color) (05/20/2018 9:24 AM)Only the most recent of2 resultswithin the time period is included. Component Value Ref Range Ejection Fraction Specimen Performing Laboratory [facility] MKCKESSON CPACS Narrative Transthoracic Echocardiography Report (TTE) Demographics Patient Name Catherine SEXTON of Study 05/20/2018 IROS [id number] Male Visit Number [id number] Room Number 8A11 Number Date of Birth1930Referring Physician Cristobal Moreno MD Age87 year(s)Sole Seamer Jamari Matute [facility] AnalystAlex Zade Interpreting Andrews Bejarano, Physician Procedure Type of Study TTE procedure:2DECHO W/CONTRAST & DOPPLER (STAT) Indications:Initial post operative evaluation of prosthetic valve. Clinical History Congestive Heart Failure Coronary Artery Disease Dyspnea on exertion Murmur Hyperlipidemia Hypertension Valvular heart disease, aortic stenosis Shortness of Breath S/P Coronary Angioplasty 2002 S/P CABG HGB 10.6 HCT 34.3 % Contrast Medium: Definity. Amount - 2 ml Height: 72 inches Weight: 90.72 kg (200 lbs) BSA: 2.13 m^2 BMI: 27.12 kg/m^2 HR: 76 bpm BP: 111/40 mmHg Summary Technically difficult exam. The left ventricle is chamber size (by PSLAX dimension) is normal (male - LVIDd 4.2-5.8cm) . Mild concentric LV hypertrophy. All of the LV segments are hyperkinetic . Estimated LVEF by qualitative assessment is increased (>70%) . Grade 1 diastolic dysfunction (impaired relaxation and low-normal LA pressure). Normal right ventricle structure and function. The prosthetic AoV appears well-seated with normal function by Doppler. Unable to estimate peak systolic PA pressure; inadequate TR velocity signal. Signature Findings Technical Quality: Technically difficult exam. Left Ventricle The left ventricle is chamber size (by PSLAX dimension) is normal (male - LVIDd 4.2-5.8cm) . Mild concentric LV hypertrophy. All of the LV segments are hyperkinetic . Estimated LVEF by qualitative assessment is increased (>70%) . Grade 1 diastolic dysfunction (impaired relaxation and low-normal LA pressure). Left AtriumLA size is normal . Right VentricleNormal right ventricle structure and function. Right Atrium Normal right atrium. Aortic Valve A percutaneous (TAVR) biologic AoV prosthesis is visualized . The prosthetic AoV appears well-seated with normal function by Doppler. Mitral Valve Mild MV leaflet thickening. Mild to moderate mitral annular calcification. Tricuspid ValveTV is partially visualized. Unable to estimate peak systolic PA pressure; inadequate TR velocity signal. Pulmonic Valve PV is not well visualized. AortaAortic root size (SInus of Valsalva diameter) is normal . PericardiumNo evidence of pericardial effusion. IVC/SVC/PA/PV/PleuralThe estimated RA pressure by IVC dynamics 0-5mmHg . Chambers/Structures Left Atrium LA Dimension: 4.59 cm LA Area: 19.8 cm^2 LA Volume: 58.35 ml LA Vol. Index: 27 ml/m^2 Left Ventricle LVIDd: 4.94 cm LV Septum Diastolic: 1.3 cm LV PW Diastolic: 1.21 cm Aorta Ao Root S of Lili.: 3.24 cm Doppler/Quantitative Measurements Aortic Valve Peak Velocity: 1.51 m/sMean Velocity: 1.03 m/s Peak Gradient: 9.12 mmHg Mean Gradient: 4.95 mmHg AV VTI: 20.23 cm AV DVI: 1.1 LVOT Peak Velocity: 1.19 m/s Peak Gradient: 5.7 mmHg Mean Velocity: 0.78 m/s Mean Gradient: 2.91 mmHg LVOT VTI: 22.17 cm Procedure Note Interface, External Ris In - 05/20/2018 6:08 PM CDT Transthoracic Echocardiography Report (TTE) Demographics Patient Name GLENN SEXTON Date of Study 05/20/2018 RIOS Gender Male Visit Number [id number] Race Room Number 8A11 Number Date of 1930 Referring Physician Cristobal Moreno MD Age 87 year(s) Sole Seamer Jamari Matute [facility] 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 Clinical History Congestive Heart Failure Coronary Artery Disease Dyspnea on exertion Murmur Hyperlipidemia Hypertension Valvular heart disease, aortic stenosis Shortness of Breath S/P Coronary Angioplasty 2002 S/P CABG HGB 10.6 HCT 34.3 % Contrast Medium: Definity. Amount - 2 ml Height: 72 inches Weight: 90.72 kg (200 lbs) BSA: 2.13 m^2 BMI: 27.12 kg/m^2 HR: 76 bpm BP: 111/40 mmHg Summary Technically difficult exam. The left ventricle is chamber size (by PSLAX dimension) is normal (male - LVIDd 4.2-5.8cm) . Mild concentric LV hypertrophy. All of the LV segments are hyperkinetic . Estimated LVEF by qualitative assessment is increased (>70%) . Grade 1 diastolic dysfunction (impaired relaxation and low-normal LA pressure). Normal right ventricle structure and function. The prosthetic AoV appears well-seated with normal function by Doppler. Unable to estimate peak systolic PA pressure; inadequate TR velocity signal. Signature Findings Technical Quality: Technically difficult exam. Left Ventricle The left ventricle is chamber size (by PSLAX dimension) is normal (male - LVIDd 4.2-5.8cm) . Mild concentric LV hypertrophy. All of the LV segments are hyperkinetic . Estimated LVEF by qualitative assessment is increased (>70%) . Grade 1 diastolic dysfunction (impaired relaxation and low-normal LA pressure). Left Atrium LA size is normal . Right Ventricle Normal right ventricle structure and function. Right Atrium Normal right atrium. Aortic Valve A percutaneous (TAVR) biologic AoV prosthesis is visualized . The prosthetic AoV appears well-seated with normal function by Doppler. Mitral Valve Mild MV leaflet thickening. Mild to moderate mitral annular calcification. Tricuspid Valve TV is partially visualized. Unable to estimate peak systolic PA pressure; inadequate TR velocity signal. Pulmonic Valve PV is not well visualized. Aorta Aortic root size (SInus of Valsalva diameter) is normal . Pericardium No evidence of pericardial effusion. IVC/SVC/PA/PV/Pleural The estimated RA pressure by IVC dynamics 0-5mmHg . Chambers/Structures Left Atrium LA Dimension: 4.59 cm LA Area: 19.8 cm^2 LA Volume: 58.35 ml LA Vol. Index: 27 ml/m^2 Left Ventricle LVIDd: 4.94 cm LV Septum Diastolic: 1.3 cm LV PW Diastolic: 1.21 cm Aorta Ao Root S of Lili.: 3.24 cm Doppler/Quantitative Measurements Aortic Valve Peak Velocity: 1.51 m/s Mean Velocity: 1.03 m/s Peak Gradient: 9.12 mmHg Mean Gradient: 4.95 mmHg AV VTI: 20.23 cm AV DVI: 1.1 LVOT Peak Velocity: 1.19 m/s Peak Gradient: 5.7 mmHg Mean Velocity: 0.78 m/s Mean Gradient: 2.91 mmHg LVOT VTI: 22.17 cm Urinalysis w/Microscopic (05/19/2018 11:32 PM) Component Value Ref Range Color, UA Yellow Clarity, UA Clear Specific Dodson, UA 1.017 1.001 - 1.035 pH, UA 5.0 5.0 - 8.0 Protein, UA Negative Negative Glucose, UA Negative Negative Ketones, UA Negative Negative Bilirubin, UA Negative Negative Blood, UA Small (A) Negative Nitrite, UA Negative Negative Leukocytes, UA Negative Negative Urobilinogen, UA 0.2 0.2 - 1.0 mg/dL RBC, UA 12 /HPF WBC, UA 1 /HPF Mucus Rare Amorphous Crystals Occasional Specimen Source Urine, [place] Specimen Performing Laboratory Urine - Urine, [address] [address] Urine culture (05/19/2018 11:31 PM) Component Value Ref Range Result No growth Specimen Performing Laboratory Urine - Urine, [address] [address] Blood culture (05/19/2018 11:23 PM)Only the most recent of2 resultswithin the time period is included. Component Value Ref Range Result No growth in 5 days Specimen Performing Laboratory Blood - Arm, [address] [address] POC-Lactic Acid, Arterial (05/19/2018 9:17 PM) Component Value Ref Range POC-Lactic Acid, Arterial 1.5 (H)Comment: TESTED AT [place] [address] 0.4 - 1.3 mmol /L [facility] [address] Specimen Performing Laboratory [address] [address] POCT-HEMATOCRIT (05/19/2018 9:07 PM) Component Value Ref Range POC-Hematocrit 32 (L)Comment: TESTED AT [address] [address] 40 - 50 % Specimen Performing Laboratory [address] [address] POCT-HEMOGLOBIN (05/19/2018 9:07 PM) Component Value Ref Range POC-Hemoglobin 10.9 (L)Comment: TESTED AT [address] 13.0 - 16.8 g/dL [place] [id number] AT [address] [address] Specimen Performing Laboratory Blood [address] [address] POCT-GLUCOSE (05/19/2018 9:07 PM) Component Value Ref Range POC-Glucose 152 (H)Comment: TESTED AT [address] 70 - 110 mg/dL [address] Specimen Performing Laboratory Blood [address] [address] POC-Sodium (05/19/2018 9:07 PM) Component Value Ref Range POC-Sodium 137Comment: TESTED AT [address] [address] 135 - 148 meq/L Specimen Performing Laboratory [address] [address] POC-Potassium (05/19/2018 9:07 PM) Component Value Ref Range POC-Potassium 3.6Comment: TESTED AT [address] 3.6 - 5.5 meq/L [address] Specimen Performing Laboratory Blood [address] [address] POC-Calcium ionized (05/19/2018 9:07 PM) Component Value Ref Range POC-Calcium Ionized 1.19Comment: TESTED AT [address] 1.12 - 1.27 mmol/L [facility] [address] Specimen Performing Laboratory [address] [address] POC-Blood gases, arterial (05/19/2018 9:07 PM) Component Value Ref Range Temp. Celsius-POC 37.1 FIO2-POC 29Comment: TESTED AT [address] [address] pH, Arterial-POC 7.468 (H) 7.350 - 7.450 PCO2, Arterial-POC 34.4 (L) 35.0 - 45.0 mm Hg PO2, Arterial-POC 63.0 (L) 80.0 - 90.0 mm Hg SO2, Arterial-POC 93.0 (L) 96.0 - 97.0 % HCO3, Arterilal-POC 24.9 21.0 - 29.0 meq/L BE, Arterial-POC 1.0 -2.0 - 3.0 meq/L Specimen Performing Laboratory [address] [address] [address] brain/stroke test design (05/19/2018 8:42 PM) Specimen Performing Laboratory GE RIS Narrative FINAL REPORT CT head without contrast 05/19/2018 8:43 PM CLINICAL HISTORY: Stroke altered mental status TECHNIQUE: Axial noncontrast CT images through the head were obtained. This examination was performed according to our departmental dose optimization program, which includes automated exposure control, adjustment of the mA and/or kV according to patient size, and/or use of iterated reconstruction technique. COMPARISON: None available FINDINGS: There is no hemorrhage, extra-axial collection, mass, hydrocephalus, or midline shift. There is a small infarct in the posterior right superior and middle frontal gyri. 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 There is atherosclerotic calcification of the intracranial arterial vasculature. There is generalized parenchymal volume loss. There is paranasal sinus mucosal thickening without fluid levels. There is evidence for prior functional sinus surgery. The tympanomastoid cavities are well-aerated. The skull is unremarkable. IMPRESSION: No intracranial hemorrhage or mass effect. Ischemic changes, which can be definitively characterized with MRI if clinically indicated. Findings were discussed with the stroke neurology housestaff on 05/19/2018 at 2040. Signed: Micheal Boykin MD Report Verified Date/Time:05/19/2018 20:46:09 Reading Location: [facility] Radiology Reading Room Procedure Note Interface, External Ris In - 05/19/2018 8:48 PM CDT FINAL REPORT CT head without contrast 05/19/2018 8:43 PM CLINICAL HISTORY: Stroke altered mental status TECHNIQUE: Axial noncontrast CT images through the head were obtained. This examination was performed according to our departmental dose optimization program, which includes automated exposure control, adjustment of the mA and/or kV according to patient size, and/or use of iterated reconstruction technique. COMPARISON: None available FINDINGS: There is no hemorrhage, extra-axial collection, mass, hydrocephalus, or midline shift. There is a small infarct in the posterior right superior and middle frontal gyri. 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 There is atherosclerotic calcification of the intracranial arterial vasculature. There is generalized parenchymal volume loss. There is paranasal sinus mucosal thickening without fluid levels. There is evidence for prior functional sinus surgery. The tympanomastoid cavities are well-aerated. The skull is unremarkable. IMPRESSION: No intracranial hemorrhage or mass effect. Ischemic changes, which can be definitively characterized with MRI if clinically indicated. Findings were discussed with the stroke neurology housestaff on 05/19/2018 at 2040. Signed: Micheal Boykin MD Report Verified Date/Time: 05/19/2018 20:46:09 Reading Location: [facility] Radiology Reading Room Prepare RBC (05/19/2018 10:47 AM) Component Value Ref Range CROSSMATCH COMPATIBLE Unit ABO O Pos UNIT NUMBER [id number] Status RETURNED FROM ISSUE Blood Bank Product RED BLOOD CELLS PRODUCT CODE [id number] CROSSMATCH COMPATIBLE Unit ABO O Pos UNIT NUMBER [id number] Status RETURNED FROM ISSUE Blood Bank Product RED BLOOD CELLS PRODUCT CODE [id number] CROSSMATCH COMPATIBLE Unit ABO O Pos UNIT NUMBER [id number] Status RETURNED FROM ISSUE Blood Bank Product RED BLOOD CELLS PRODUCT CODE [id number] CROSSMATCH COMPATIBLE Unit ABO O Pos UNIT NUMBER [id number] Status RETURNED FROM ISSUE Blood Bank Product RED BLOOD CELLS PRODUCT CODE [id number] Specimen Performing Laboratory SAFETRACE TX POC ACTIVATED CLOTTING TIME (05/19/2018 8:59 AM) Component Value Ref Range Activated Clotting Time 329Comment: TESTED AT [address] sec [address] Specimen Performing Laboratory Blood [address] [address] B-type Natriuretic Factor (BNP) (04/21/2018 1:51 PM) Component Value Ref Range BNP 785 (H) 0 - 100 pg/mL Specimen Performing Laboratory Blood [address] [address] CTA chest (04/19/2018 10:17 AM) Specimen Performing Laboratory [facility] Narrative Addendum Begins REPORT STATUS:A Addendum: I agree with the previously described non vascular findings.. Additionally, the lungs demonstrate fibrotic changes which are most pronounced in the bilateral bases. Biapical pleural-parenchymal scarring is present. Signed: Dejon Bland MD Report Verified Date/Time:04/20/2018 12:54:28 Reading Location: [facility] P048 Angio Body Reading Room Addendum Ends FINAL REPORT CT angiography of the thoracoabdominal aorta and pelvic arteries, 19 Apr 2018 INDICATION: This is a 87 year old male with a diagnosis of aortic stenosis presents for preprocedure TAVR assessment. This study is performed in an attempt to avoid an invasive procedure. TECHNIQUE: Spiral acquisition before and during intravenous contrast administration using a Tae CT scanner. Images were obtained before and during the dynamic passage of intravenous contrast material.Multi-planar 3-D volume-rendering reconstruction was performed using an independent workstation interactively by the interpreting physician as well as the 3-D specialist for optimal visualization of the thoracoabdominal aorta, the pelvic arteries as well as its proximal branches. Please refer to the contrast sheet scanned in the EPIC system for the amount and route of contrast given. This exam was performed according to our departmental dose-optimisation programme, which includes automated exposure control, adjustment of the mA and/or kV according to patient size and/or use of iterative reconstruction technique. Dose modulation, iterative reconstruction, and/or weight based adjustment of the mA/kV was utilized to reduce the radiation dose to as low as reasonably achievable. FINDINGS: VASCULAR: The central pulmonary artery is normal in calibre. The cardiac chambers demonstrate normal atrioventricular and ventriculoarterial concordance, and systemic and pulmonary venous return. The left ventricle is at the upper limits of normal in size. Left atrial enlargement is identified. Mitral annular calcification is seen predominantly posteriorly and inferiorly. Coronary artery origins are normal and diffuse coronary artery calcification is identified. Patient is post coronary artery bypass surgery. A FRASER graft is identified, that is patent connecting to the LAD territory. Minimum distance between the internal mammary graft to the posterior aspect of the sternum, at image 144, is 5 mm. At this level, the graft is approximately 1.8 cm to the midline of the sternum. A bypass graft is identified, connecting to the OM territory, and the minimum distance of this graft to the posterior aspect of the sternum, at image 137, approximately 10 mm. There is another bypass graft identified, connecting to the RCA territory, and the minimum distance, at image 138, is 3 cm. Patient has a diagnosis of aortic stenosis. Aortic valve is tricuspid. Agatston score is 1893. The location of aortic valvular calcification can be seen in reformatted data set sent to PACS. Overall, there is no calcification seen in the aortic root and the ascending thoracic aorta. The transverse arch and descending thoracic aorta has at least moderate calcification identified. In the infrarenal abdominal aorta, moderate significant circumferential calcific atherosclerosis is seen. In addition, there is likely atherosclerotic ulceration identified, for example at image 372, in the infrarenal abdominal aorta, rightward, representing a spectrum of underlying atherosclerosis. No ectasia or aneurysmal dilation is identified. Substantial calcification is identified in the takeoff of the left subclavian artery, with minimum diameter of the left subclavian artery, at image 57, is approximately 3.9 x 7.9 mm; mild calcification is seen in the takeoff of the right subclavian artery, at image 36 is approximately 6 mm. Mild stenosis is seen in the coeliac axis with calcific and noncalcific atherosclerosis identified. Significant calcification is seen at the proximal SMA making accurate assessment limited, and may suggest significant focal lesion, though remainder of the SMA is well enhanced by contrast. The HAYES is patent. There are two left renal arteries that are patent with no obstructive lesion identified. At least two right renal arteries is identified. The accessory right renal artery is small and may have a stenosis identified. The main right renal artery has noncalcific atherosclerotic plaque identified proximally, with mild lesion identified; remainder of the right renal artery is patent with no obstructive lesion seen. The common iliac, external iliac, common femoral, and the visualised superficial femoral arteries are patent, with a mixture of calcific and noncalcific atherosclerosis identified. Refer to minimum diameter below for details. Dimensions that may be helpful for TAVR are as follows: No calcification is seen in the aortic root and ascending thoracic aorta. The major and minor aortic annulus diameter measures 27.9 and 22.1 mm, respectively. The aortic annulus perimeter measured 77 mm and the cross-sectional area measures 461 mm2. The aortic annulus diameter at the traditional LVOT and coronal LVOT measures 20.7 and 22.4 mm, respectively. For reference purpose, per [employer] S3 brochure, recommendation are as follows: CT area between 273 to 345 mm2 (20 mm valve); 338 to 430 mm2 (23 mm valve); 430 to 546 mm2 (26 mm valve); 540 to 683 mm2 (29 mm valve). For reference purpose, per [employer] brochure, recommendation are as follows: CT perimeter between 56.5-62.8 mm (23 mm valve); 62.8-72.3 mm (26 mm valve); 72.3-81.7 mm (29 mm valve); and 81.7-94.2. mm (34 mm valve). Agatston Score is 1893.By planimetry, the aortic valve area is greater than 1 sq cm in 35% reconstruction and therefore likely inaccurate. Correlate with echocardiography. The sinus of Valsalva height to the takeoff of the coronary artery ostium, RCC (diastole): 14.7 mm The sinus of Valsalva height to the takeoff of the coronary artery ostium, LCC (diastole): 13.8 mm The sinus of Valsalva diameter, RCC (diastole): 30.6 mm The sinus of Valsalva diameter, LCC (diastole): 34.2 mm The sinus of Valsalva diameter, NCC (diastole): 32.9 mm At the sinotubular junction, the aorta measures approximately 20.4 x 28.3 mm valve. The aortic root angulation measures 46.4 degrees. The minimal and perpendicular abdominal aortic diameter measures 12.5 and 13.3 mm, respectively. There is no evidence of thoracoabdominal aortic aneurysm or stent placement present. The minimum and the perpendicular left common iliac artery measures 7.1 and 7.6 mm, respectively with mildtortuosity and mildcalcific atherosclerosis present. The minimum and the perpendicular left external iliac artery measures 7.3 and 7.9 mm, respectively with [id number] and nocalcific atherosclerosis present. The minimum and the perpendicular left femoral artery measures 6.2 and 8.7 mm, respectively with notortuosity and mild calcific atherosclerosis present. More distally, image 628, the minimum diameter is 5.3 x 6.5 mm, in the inferior margin of the left femoral head. Focal calcific atherosclerosis is also seen at the takeoff of the left SFA, image 635. The minimum and the perpendicular right common iliac artery measures 6.3 and 8.2 mm, respectively with mildtortuosity and mildcalcific atherosclerosis present. The minimum and the perpendicular right external iliac artery measures 7.0 and 7.2 mm, respectively with moderatetortuosity and minimal calcific atherosclerosis present. The minimum and the perpendicular right femoral artery measures 3.6 and 6.8 mm, respectively with notortuosity and moderate focal calcific atherosclerosis present, , at image 597. NONVASCULAR: The visualised thyroid gland appears unremarkable. Patient is post median sternotomy. The chest wall and mediastinum have no acute abnormalities identified. There are some small lymph nodes identified in the mediastinum, that are not enlarged, considered nonspecific in nature. In the lung windows, no obvious endobronchial lesion is seen, and no pleural effusions identified. Some bibasal pleural thickening is noted. Some subsegmental atelectatic changes/scarring are seen, for example in the left lower lobe at image 221 is seen in the sagittal orientation. There appears to be mosaic perfusion patent identified, that may represent small airways disease. Some apical scarring is identified.Calcified granuloma is identified in the left upper lobe at image 58 indicating prior granulomatous disease. Overall, no discrete pulmonary nodule is appreciated. In the abdomen, the liver and spleen appears unremarkable. The liver edge is smooth. Calcified granuloma is identified near the dome of the liver. Gallstone is seen in the gallbladder with no wall thickening or biliary ductal dilation seen. The pancreas appears unremarkable. The adrenal glands are not enlarged though tiny calcification seen in the medial limb of the left adrenal gland. No acute renal pathology is seen and no hydronephrosis or perirenal fluid collections identified. Some cortical scarring is noted. Bowel is not well assessed by CT angiography as enteric contrast not given. No obvious bowel dilation is identified. Scattered colonic diverticulum is seen with no inflammatory changes identified. Bilateral fat-containing inguinal hernia is seen, left greater than right. The bladder appears unremarkable. Punctate calcification seen in the prostate gland and the prostate gland is mildly prominent. No free air or free fluid seen abdomen and pelvis. No significant retroperitoneal adenopathy is identified. In the bony windows, no acute bony pathology is identified. Some degenerative changes are noted. CONCLUSIONS: 1.Patient has a diagnosis of aortic stenosis. The aortic valve is tricuspid. Agatston score is approximately 1893. No calcification is identified in the aortic root or ascending thoracic aorta, however, there is moderate calcification identified in the transverse arch, descending thoracic aorta as well as in the infrarenal abdominal aorta. This also atherosclerotic ulceration identified infrarenal abdominal aorta. Finally, some noncalcific atherosclerotic plaque is seen in the descending thoracic aorta for example at image 230 and the thickness of the noncalcific atherosclerosis is up to 5 mm; at image 243, the thickness of the noncalcific atherosclerosis is up to 7 mm. No acute aortic pathology is identified. Substantial mitral annular calcification is identified. Dimensions that may be helpful for TAVR as described above. There is moderate focal calcification identified at the level of the right, femoral artery at the mid right femoral head level, image 597. 2.Patient is post coronary artery bypass surgery a total of three bypass graft is identified as detailed above. Focal calcific atherosclerosis seen in the proximal left subclavian artery with no significant obstructive lesion identified, at image 57. 3.Pulmonary findings as described above. Evidence of prior granulomatous disease. 4.Other findings as described above. 5.An addendum will be dictated by the Hall Supervisor Radiologist regarding the nonvascular findings. Signed: Puneet Espinoza MD Report Verified Date/Time:04/19/2018 14:19:03 Reading Location: [place] [id number] Cardiology MRI Procedure Note Interface, External Ris In - 04/20/2018 12:56 PM CDT Addendum Begins REPORT STATUS:A Addendum: I agree with the previously described non vascular findings.. Additionally, the lungs demonstrate fibrotic changes which are most pronounced in the bilateral bases. Biapical pleural-parenchymal scarring is present. Signed: Dejon Bland MD Report Verified Date/Time: 04/20/2018 12:54:28 Reading Location: [facility] P048 Angio Body Reading Room Addendum Ends FINAL REPORT CT angiography of the thoracoabdominal aorta and pelvic arteries, 19 Apr 2018 INDICATION: This is a 87 year old male with a diagnosis of aortic stenosis presents for preprocedure TAVR assessment. This study is performed in an attempt to avoid an invasive procedure. TECHNIQUE: Spiral acquisition before and during intravenous contrast administration using a Tae CT scanner. Images were obtained before and during the dynamic passage of intravenous contrast material. Multi-planar 3-D volume-rendering reconstruction was performed using an independent workstation interactively by the interpreting physician as well as the 3-D specialist for optimal visualization of the thoracoabdominal aorta, the pelvic arteries as well as its proximal branches. Please refer to the contrast sheet scanned in the EPIC system for the amount and route of contrast given. This exam was performed according to our departmental dose-optimisation programme, which includes automated exposure control, adjustment of the mA and/or kV according to patient size and/or use of iterative reconstruction technique. Dose modulation, iterative reconstruction, and/or weight based adjustment of the mA/kV was utilized to reduce the radiation dose to as low as reasonably achievable. FINDINGS: VASCULAR: The central pulmonary artery is normal in calibre. The cardiac chambers demonstrate normal atrioventricular and ventriculoarterial concordance, and systemic and pulmonary venous return. The left ventricle is at the upper limits of normal in size. Left atrial enlargement is identified. Mitral annular calcification is seen predominantly posteriorly and inferiorly. Coronary artery origins are normal and diffuse coronary artery calcification is identified. Patient is post coronary artery bypass surgery. A FRASER graft is identified, that is patent connecting to the LAD territory. Minimum distance between the internal mammary graft to the posterior aspect of the sternum, at image 144, is 5 mm. At this level, the graft is approximately 1.8 cm to the midline of the sternum. A bypass graft is identified, connecting to the OM territory, and the minimum distance of this graft to the posterior aspect of the sternum, at image 137, approximately 10 mm. There is another bypass graft identified, connecting to the RCA territory, and the minimum distance, at image 138, is 3 cm. Patient has a diagnosis of aortic stenosis. Aortic valve is tricuspid. Agatston score is 1893. The location of aortic valvular calcification can be seen in reformatted data set sent to PACS. Overall, there is no calcification seen in the aortic root and the ascending thoracic aorta. The transverse arch and descending thoracic aorta has at least moderate calcification identified. In the infrarenal abdominal aorta, moderate significant circumferential calcific atherosclerosis is seen. In addition, there is likely atherosclerotic ulceration identified, for example at image 372, in the infrarenal abdominal aorta, rightward, representing a spectrum of underlying atherosclerosis. No ectasia or aneurysmal dilation is identified. Substantial calcification is identified in the takeoff of the left subclavian artery, with minimum diameter of the left subclavian artery, at image 57, is approximately 3.9 x 7.9 mm; mild calcification is seen in the takeoff of the right subclavian artery, at image 36 is approximately 6 mm. Mild stenosis is seen in the coeliac axis with calcific and noncalcific atherosclerosis identified. Significant calcification is seen at the proximal SMA making accurate assessment limited, and may suggest significant focal lesion, though remainder of the SMA is well enhanced by contrast. The HAYES is patent. There are two left renal arteries that are patent with no obstructive lesion identified. At least two right renal arteries is identified. The accessory right renal artery is small and may have a stenosis identified. The main right renal artery has noncalcific atherosclerotic plaque identified proximally, with mild lesion identified; remainder of the right renal artery is patent with no obstructive lesion seen. The common iliac, external iliac, common femoral, and the visualised superficial femoral arteries are patent, with a mixture of calcific and noncalcific atherosclerosis identified. Refer to minimum diameter below for details. Dimensions that may be helpful for TAVR are as follows: No calcification is seen in the aortic root and ascending thoracic aorta. The major and minor aortic annulus diameter measures 27.9 and 22.1 mm, respectively. The aortic annulus perimeter measured 77 mm and the cross-sectional area measures 461 mm2. The aortic annulus diameter at the traditional LVOT and coronal LVOT measures 20.7 and 22.4 mm, respectively. For reference purpose, per [employer] S3 brochure, recommendation are as follows: CT area between 273 to 345 mm2 (20 mm valve); 338 to 430 mm2 (23 mm valve); 430 to 546 mm2 (26 mm valve); 540 to 683 mm2 (29 mm valve). For reference purpose, per [employer] brochure, recommendation are as follows: CT perimeter between 56.5-62.8 mm (23 mm valve); 62.8-72.3 mm (26 mm valve); 72.3-81.7 mm (29 mm valve); and 81.7-94.2. mm (34 mm valve). Agatston Score is 1893. By planimetry, the aortic valve area is greater than 1 sq cm in 35% reconstruction and therefore likely inaccurate. Correlate with echocardiography. The sinus of Valsalva height to the takeoff of the coronary artery ostium, RCC (diastole): 14.7 mm The sinus of Valsalva height to the takeoff of the coronary artery ostium, LCC (diastole): 13.8 mm The sinus of Valsalva diameter, RCC (diastole): 30.6 mm The sinus of Valsalva diameter, LCC (diastole): 34.2 mm The sinus of Valsalva diameter, NCC (diastole): 32.9 mm At the sinotubular junction, the aorta measures approximately 20.4 x 28.3 mm valve. The aortic root angulation measures 46.4 degrees. The minimal and perpendicular abdominal aortic diameter measures 12.5 and 13.3 mm, respectively. There is no evidence of thoracoabdominal aortic aneurysm or stent placement present. The minimum and the perpendicular left common iliac artery measures 7.1 and 7.6 mm, respectively with mild tortuosity and mild calcific atherosclerosis present. The minimum and the perpendicular left external iliac artery measures 7.3 and 7.9 mm, respectively with [id number] tortuosity and no calcific atherosclerosis present. The minimum and the perpendicular left femoral artery measures 6.2 and 8.7 mm, respectively with no tortuosity and mild calcific atherosclerosis present. More distally, image 628, the minimum diameter is 5.3 x 6.5 mm, in the inferior margin of the left femoral head. Focal calcific atherosclerosis is also seen at the takeoff of the left SFA, image 635. The minimum and the perpendicular right common iliac artery measures 6.3 and 8.2 mm, respectively with mild tortuosity and mild calcific atherosclerosis present. The minimum and the perpendicular right external iliac artery measures 7.0 and 7.2 mm, respectively with moderate tortuosity and minimal calcific atherosclerosis present. The minimum and the perpendicular right femoral artery measures 3.6 and 6.8 mm, respectively with no tortuosity and moderate focal calcific atherosclerosis present, , at image 597. NONVASCULAR: The visualised thyroid gland appears unremarkable. Patient is post median sternotomy. The chest wall and mediastinum have no acute abnormalities identified. There are some small lymph nodes identified in the mediastinum, that are not enlarged, considered nonspecific in nature. In the lung windows, no obvious endobronchial lesion is seen, and no pleural effusions identified. Some bibasal pleural thickening is noted. Some subsegmental atelectatic changes/scarring are seen, for example in the left lower lobe at image 221 is seen in the sagittal orientation. There appears to be mosaic perfusion patent identified, that may represent small airways disease. Some apical scarring is identified. Calcified granuloma is identified in the left upper lobe at image 58 indicating prior granulomatous disease. Overall, no discrete pulmonary nodule is appreciated. In the abdomen, the liver and spleen appears unremarkable. The liver edge is smooth. Calcified granuloma is identified near the dome of the liver. Gallstone is seen in the gallbladder with no wall thickening or biliary ductal dilation seen. The pancreas appears unremarkable. The adrenal glands are not enlarged though tiny calcification seen in the medial limb of the left adrenal gland. No acute renal pathology is seen and no hydronephrosis or perirenal fluid collections identified. Some cortical scarring is noted. Bowel is not well assessed by CT angiography as enteric contrast not given. No obvious bowel dilation is identified. Scattered colonic diverticulum is seen with no inflammatory changes identified. Bilateral fat-containing inguinal hernia is seen, left greater than right. The bladder appears unremarkable. Punctate calcification seen in the prostate gland and the prostate gland is mildly prominent. No free air or free fluid seen abdomen and pelvis. No significant retroperitoneal adenopathy is identified. In the bony windows, no acute bony pathology is identified. Some degenerative changes are noted. CONCLUSIONS: 1. Patient has a diagnosis of aortic stenosis. The aortic valve is tricuspid. Agatston score is approximately 1893. No calcification is identified in the aortic root or ascending thoracic aorta, however, there is moderate calcification identified in the transverse arch, descending thoracic aorta as well as in the infrarenal abdominal aorta. This also atherosclerotic ulceration identified infrarenal abdominal aorta. Finally, some noncalcific atherosclerotic plaque is seen in the descending thoracic aorta for example at image 230 and the thickness of the noncalcific atherosclerosis is up to 5 mm; at image 243, the thickness of the noncalcific atherosclerosis is up to 7 mm. No acute aortic pathology is identified. Substantial mitral annular calcification is identified. Dimensions that may be helpful for TAVR as described above. There is moderate focal calcification identified at the level of the right, femoral artery at the mid right femoral head level, image 597. 2. Patient is post coronary artery bypass surgery a total of three bypass graft is identified as detailed above. Focal calcific atherosclerosis seen in the proximal left subclavian artery with no significant obstructive lesion identified, at image 57. 3. Pulmonary findings as described above. Evidence of prior granulomatous disease. 4. Other findings as described above. 5. An addendum will be dictated by the Hall Supervisor Radiologist regarding the nonvascular findings. Signed: Puneet Espinoza MD Report Verified Date/Time: 04/19/2018 14:19:03 Reading Location: [facility] P047 Cardiology MRI abdomen & pelvis (04/19/2018 10:17 AM) Specimen Performing Laboratory [place] Narrative Addendum Begins REPORT STATUS:A Addendum: I agree with the previously described non vascular findings.. Additionally, the lungs demonstrate fibrotic changes which are most pronounced in the bilateral bases. Biapical pleural-parenchymal scarring is present. Signed: Dejon Bland MD Report Verified Date/Time:04/20/2018 12:54:28 Reading Location: [facility] P048 Angio Body Reading Room Addendum Ends FINAL REPORT CT angiography of the thoracoabdominal aorta and pelvic arteries, 19 Apr 2018 INDICATION: This is a 87 year old male with a diagnosis of aortic stenosis presents for preprocedure TAVR assessment. This study is performed in an attempt to avoid an invasive procedure. TECHNIQUE: Spiral acquisition before and during intravenous contrast administration using a Tae CT scanner. Images were obtained before and during the dynamic passage of intravenous contrast material.Multi-planar 3-D volume-rendering reconstruction was performed using an independent workstation interactively by the interpreting physician as well as the 3-D specialist for optimal visualization of the thoracoabdominal aorta, the pelvic arteries as well as its proximal branches. Please refer to the contrast sheet scanned in the EPIC system for the amount and route of contrast given. This exam was performed according to our departmental dose-optimisation programme, which includes automated exposure control, adjustment of the mA and/or kV according to patient size and/or use of iterative reconstruction technique. Dose modulation, iterative reconstruction, and/or weight based adjustment of the mA/kV was utilized to reduce the radiation dose to as low as reasonably achievable. FINDINGS: VASCULAR: The central pulmonary artery is normal in calibre. The cardiac chambers demonstrate normal atrioventricular and ventriculoarterial concordance, and systemic and pulmonary venous return. The left ventricle is at the upper limits of normal in size. Left atrial enlargement is identified. Mitral annular calcification is seen predominantly posteriorly and inferiorly. Coronary artery origins are normal and diffuse coronary artery calcification is identified. Patient is post coronary artery bypass surgery. A FRASER graft is identified, that is patent connecting to the LAD territory. Minimum distance between the internal mammary graft to the posterior aspect of the sternum, at image 144, is 5 mm. At this level, the graft is approximately 1.8 cm to the midline of the sternum. A bypass graft is identified, connecting to the OM territory, and the minimum distance of this graft to the posterior aspect of the sternum, at image 137, approximately 10 mm. There is another bypass graft identified, connecting to the RCA territory, and the minimum distance, at image 138, is 3 cm. Patient has a diagnosis of aortic stenosis. Aortic valve is tricuspid. Agatston score is 1893. The location of aortic valvular calcification can be seen in reformatted data set sent to PACS. Overall, there is no calcification seen in the aortic root and the ascending thoracic aorta. The transverse arch and descending thoracic aorta has at least moderate calcification identified. In the infrarenal abdominal aorta, moderate significant circumferential calcific atherosclerosis is seen. In addition, there is likely atherosclerotic ulceration identified, for example at image 372, in the infrarenal abdominal aorta, rightward, representing a spectrum of underlying atherosclerosis. No ectasia or aneurysmal dilation is identified. Substantial calcification is identified in the takeoff of the left subclavian artery, with minimum diameter of the left subclavian artery, at image 57, is approximately 3.9 x 7.9 mm; mild calcification is seen in the takeoff of the right subclavian artery, at image 36 is approximately 6 mm. Mild stenosis is seen in the coeliac axis with calcific and noncalcific atherosclerosis identified. Significant calcification is seen at the proximal SMA making accurate assessment limited, and may suggest significant focal lesion, though remainder of the SMA is well enhanced by contrast. The HAYES is patent. There are two left renal arteries that are patent with no obstructive lesion identified. At least two right renal arteries is identified. The accessory right renal artery is small and may have a stenosis identified. The main right renal artery has noncalcific atherosclerotic plaque identified proximally, with mild lesion identified; remainder of the right renal artery is patent with no obstructive lesion seen. The common iliac, external iliac, common femoral, and the visualised superficial femoral arteries are patent, with a mixture of calcific and noncalcific atherosclerosis identified. Refer to minimum diameter below for details. Dimensions that may be helpful for TAVR are as follows: No calcification is seen in the aortic root and ascending thoracic aorta. The major and minor aortic annulus diameter measures 27.9 and 22.1 mm, respectively. The aortic annulus perimeter measured 77 mm and the cross-sectional area measures 461 mm2. The aortic annulus diameter at the traditional LVOT and coronal LVOT measures 20.7 and 22.4 mm, respectively. For reference purpose, per [employer] S3 brochure, recommendation are as follows: CT area between 273 to 345 mm2 (20 mm valve); 338 to 430 mm2 (23 mm valve); 430 to 546 mm2 (26 mm valve); 540 to 683 mm2 (29 mm valve). For reference purpose, per [employer] brochure, recommendation are as follows: CT perimeter between 56.5-62.8 mm (23 mm valve); 62.8-72.3 mm (26 mm valve); 72.3-81.7 mm (29 mm valve); and 81.7-94.2. mm (34 mm valve). Agatston Score is 1893.By planimetry, the aortic valve area is greater than 1 sq cm in 35% reconstruction and therefore likely inaccurate. Correlate with echocardiography. The sinus of Valsalva height to the takeoff of the coronary artery ostium, RCC (diastole): 14.7 mm The sinus of Valsalva height to the takeoff of the coronary artery ostium, LCC (diastole): 13.8 mm The sinus of Valsalva diameter, RCC (diastole): 30.6 mm The sinus of Valsalva diameter, LCC (diastole): 34.2 mm The sinus of Valsalva diameter, NCC (diastole): 32.9 mm At the sinotubular junction, the aorta measures approximately 20.4 x 28.3 mm valve. The aortic root angulation measures 46.4 degrees. The minimal and perpendicular abdominal aortic diameter measures 12.5 and 13.3 mm, respectively. There is no evidence of thoracoabdominal aortic aneurysm or stent placement present. The minimum and the perpendicular left common iliac artery measures 7.1 and 7.6 mm, respectively with mildtortuosity and mildcalcific atherosclerosis present. The minimum and the perpendicular left external iliac artery measures 7.3 and 7.9 mm, respectively with [id number] and nocalcific atherosclerosis present. The minimum and the perpendicular left femoral artery measures 6.2 and 8.7 mm, respectively with notortuosity and mild calcific atherosclerosis present. More distally, image 628, the minimum diameter is 5.3 x 6.5 mm, in the inferior margin of the left femoral head. Focal calcific atherosclerosis is also seen at the takeoff of the left SFA, image 635. The minimum and the perpendicular right common iliac artery measures 6.3 and 8.2 mm, respectively with mildtortuosity and mildcalcific atherosclerosis present. The minimum and the perpendicular right external iliac artery measures 7.0 and 7.2 mm, respectively with moderatetortuosity and minimal calcific atherosclerosis present. The minimum and the perpendicular right femoral artery measures 3.6 and 6.8 mm, respectively with notortuosity and moderate focal calcific atherosclerosis present, , at image 597. NONVASCULAR: The visualised thyroid gland appears unremarkable. Patient is post median sternotomy. The chest wall and mediastinum have no acute abnormalities identified. There are some small lymph nodes identified in the mediastinum, that are not enlarged, considered nonspecific in nature. In the lung windows, no obvious endobronchial lesion is seen, and no pleural effusions identified. Some bibasal pleural thickening is noted. Some subsegmental atelectatic changes/scarring are seen, for example in the left lower lobe at image 221 is seen in the sagittal orientation. There appears to be mosaic perfusion patent identified, that may represent small airways disease. Some apical scarring is identified.Calcified granuloma is identified in the left upper lobe at image 58 indicating prior granulomatous disease. Overall, no discrete pulmonary nodule is appreciated. In the abdomen, the liver and spleen appears unremarkable. The liver edge is smooth. Calcified granuloma is identified near the dome of the liver. Gallstone is seen in the gallbladder with no wall thickening or biliary ductal dilation seen. The pancreas appears unremarkable. The adrenal glands are not enlarged though tiny calcification seen in the medial limb of the left adrenal gland. No acute renal pathology is seen and no hydronephrosis or perirenal fluid collections identified. Some cortical scarring is noted. Bowel is not well assessed by CT angiography as enteric contrast not given. No obvious bowel dilation is identified. Scattered colonic diverticulum is seen with no inflammatory changes identified. Bilateral fat-containing inguinal hernia is seen, left greater than right. The bladder appears unremarkable. Punctate calcification seen in the prostate gland and the prostate gland is mildly prominent. No free air or free fluid seen abdomen and pelvis. No significant retroperitoneal adenopathy is identified. In the bony windows, no acute bony pathology is identified. Some degenerative changes are noted. CONCLUSIONS: 1.Patient has a diagnosis of aortic stenosis. The aortic valve is tricuspid. Agatston score is approximately 1893. No calcification is identified in the aortic root or ascending thoracic aorta, however, there is moderate calcification identified in the transverse arch, descending thoracic aorta as well as in the infrarenal abdominal aorta. This also atherosclerotic ulceration identified infrarenal abdominal aorta. Finally, some noncalcific atherosclerotic plaque is seen in the descending thoracic aorta for example at image 230 and the thickness of the noncalcific atherosclerosis is up to 5 mm; at image 243, the thickness of the noncalcific atherosclerosis is up to 7 mm. No acute aortic pathology is identified. Substantial mitral annular calcification is identified. Dimensions that may be helpful for TAVR as described above. There is moderate focal calcification identified at the level of the right, femoral artery at the mid right femoral head level, image 597. 2.Patient is post coronary artery bypass surgery a total of three bypass graft is identified as detailed above. Focal calcific atherosclerosis seen in the proximal left subclavian artery with no significant obstructive lesion identified, at image 57. 3.Pulmonary findings as described above. Evidence of prior granulomatous disease. 4.Other findings as described above. 5.An addendum will be dictated by the Hall Supervisor Radiologist regarding the nonvascular findings. Signed: Puneet Espinoza MD Report Verified Date/Time:04/19/2018 14:19:03 Reading Location: [facility] P047 Cardiology MRI Procedure Note Interface, External Ris In - 04/20/2018 12:56 PM CDT Addendum Begins REPORT STATUS:A Addendum: I agree with the previously described non vascular findings.. Additionally, the lungs demonstrate fibrotic changes which are most pronounced in the bilateral bases. Biapical pleural-parenchymal scarring is present. Signed: Dejon Bland MD Report Verified Date/Time: 04/20/2018 12:54:28 Reading Location: [facility] P048 Angio Body Reading Room Addendum Ends FINAL REPORT CT angiography of the thoracoabdominal aorta and pelvic arteries, 19 Apr 2018 INDICATION: This is a 87 year old male with a diagnosis of aortic stenosis presents for preprocedure TAVR assessment. This study is performed in an attempt to avoid an invasive procedure. TECHNIQUE: Spiral acquisition before and during intravenous contrast administration using a Tae CT scanner. Images were obtained before and during the dynamic passage of intravenous contrast material. Multi-planar 3-D volume-rendering reconstruction was performed using an independent workstation interactively by the interpreting physician as well as the 3-D specialist for optimal visualization of the thoracoabdominal aorta, the pelvic arteries as well as its proximal branches. Please refer to the contrast sheet scanned in the EPIC system for the amount and route of contrast given. This exam was performed according to our departmental dose-optimisation programme, which includes automated exposure control, adjustment of the mA and/or kV according to patient size and/or use of iterative reconstruction technique. Dose modulation, iterative reconstruction, and/or weight based adjustment of the mA/kV was utilized to reduce the radiation dose to as low as reasonably achievable. FINDINGS: VASCULAR: The central pulmonary artery is normal in calibre. The cardiac chambers demonstrate normal atrioventricular and ventriculoarterial concordance, and systemic and pulmonary venous return. The left ventricle is at the upper limits of normal in size. Left atrial enlargement is identified. Mitral annular calcification is seen predominantly posteriorly and inferiorly. Coronary artery origins are normal and diffuse coronary artery calcification is identified. Patient is post coronary artery bypass surgery. A FRASER graft is identified, that is patent connecting to the LAD territory. Minimum distance between the internal mammary graft to the posterior aspect of the sternum, at image 144, is 5 mm. At this level, the graft is approximately 1.8 cm to the midline of the sternum. A bypass graft is identified, connecting to the OM territory, and the minimum distance of this graft to the posterior aspect of the sternum, at image 137, approximately 10 mm. There is another bypass graft identified, connecting to the RCA territory, and the minimum distance, at image 138, is 3 cm. Patient has a diagnosis of aortic stenosis. Aortic valve is tricuspid. Agatston score is 1893. The location of aortic valvular calcification can be seen in reformatted data set sent to PACS. Overall, there is no calcification seen in the aortic root and the ascending thoracic aorta. The transverse arch and descending thoracic aorta has at least moderate calcification identified. In the infrarenal abdominal aorta, moderate significant circumferential calcific atherosclerosis is seen. In addition, there is likely atherosclerotic ulceration identified, for example at image 372, in the infrarenal abdominal aorta, rightward, representing a spectrum of underlying atherosclerosis. No ectasia or aneurysmal dilation is identified. Substantial calcification is identified in the takeoff of the left subclavian artery, with minimum diameter of the left subclavian artery, at image 57, is approximately 3.9 x 7.9 mm; mild calcification is seen in the takeoff of the right subclavian artery, at image 36 is approximately 6 mm. Mild stenosis is seen in the coeliac axis with calcific and noncalcific atherosclerosis identified. Significant calcification is seen at the proximal SMA making accurate assessment limited, and may suggest significant focal lesion, though remainder of the SMA is well enhanced by contrast. The HAYES is patent. There are two left renal arteries that are patent with no obstructive lesion identified. At least two right renal arteries is identified. The accessory right renal artery is small and may have a stenosis identified. The main right renal artery has noncalcific atherosclerotic plaque identified proximally, with mild lesion identified; remainder of the right renal artery is patent with no obstructive lesion seen. The common iliac, external iliac, common femoral, and the visualised superficial femoral arteries are patent, with a mixture of calcific and noncalcific atherosclerosis identified. Refer to minimum diameter below for details. Dimensions that may be helpful for TAVR are as follows: No calcification is seen in the aortic root and ascending thoracic aorta. The major and minor aortic annulus diameter measures 27.9 and 22.1 mm, respectively. The aortic annulus perimeter measured 77 mm and the cross-sectional area measures 461 mm2. The aortic annulus diameter at the traditional LVOT and coronal LVOT measures 20.7 and 22.4 mm, respectively. For reference purpose, per [employer] S3 brochure, recommendation are as follows: CT area between 273 to 345 mm2 (20 mm valve); 338 to 430 mm2 (23 mm valve); 430 to 546 mm2 (26 mm valve); 540 to 683 mm2 (29 mm valve). For reference purpose, per [employer] R brochure, recommendation are as follows: CT perimeter between 56.5-62.8 mm (23 mm valve); 62.8-72.3 mm (26 mm valve); 72.3-81.7 mm (29 mm valve); and 81.7-94.2. mm (34 mm valve). Agatston Score is 1893. By planimetry, the aortic valve area is greater than 1 sq cm in 35% reconstruction and therefore likely inaccurate. Correlate with echocardiography. The sinus of Valsalva height to the takeoff of the coronary artery ostium, RCC (diastole): 14.7 mm The sinus of Valsalva height to the takeoff of the coronary artery ostium, LCC (diastole): 13.8 mm The sinus of Valsalva diameter, RCC (diastole): 30.6 mm The sinus of Valsalva diameter, LCC (diastole): 34.2 mm The sinus of Valsalva diameter, NCC (diastole): 32.9 mm At the sinotubular junction, the aorta measures approximately 20.4 x 28.3 mm valve. The aortic root angulation measures 46.4 degrees. The minimal and perpendicular abdominal aortic diameter measures 12.5 and 13.3 mm, respectively. There is no evidence of thoracoabdominal aortic aneurysm or stent placement present. The minimum and the perpendicular left common iliac artery measures 7.1 and 7.6 mm, respectively with mild tortuosity and mild calcific atherosclerosis present. The minimum and the perpendicular left external iliac artery measures 7.3 and 7.9 mm, respectively with [id number] tortuosity and no calcific atherosclerosis present. The minimum and the perpendicular left femoral artery measures 6.2 and 8.7 mm, respectively with no tortuosity and mild calcific atherosclerosis present. More distally, image 628, the minimum diameter is 5.3 x 6.5 mm, in the inferior margin of the left femoral head. Focal calcific atherosclerosis is also seen at the takeoff of the left SFA, image 635. The minimum and the perpendicular right common iliac artery measures 6.3 and 8.2 mm, respectively with mild tortuosity and mild calcific atherosclerosis present. The minimum and the perpendicular right external iliac artery measures 7.0 and 7.2 mm, respectively with moderate tortuosity and minimal calcific atherosclerosis present. The minimum and the perpendicular right femoral artery measures 3.6 and 6.8 mm, respectively with no tortuosity and moderate focal calcific atherosclerosis present, , at image 597. NONVASCULAR: The visualised thyroid gland appears unremarkable. Patient is post median sternotomy. The chest wall and mediastinum have no acute abnormalities identified. There are some small lymph nodes identified in the mediastinum, that are not enlarged, considered nonspecific in nature. In the lung windows, no obvious endobronchial lesion is seen, and no pleural effusions identified. Some bibasal pleural thickening is noted. Some subsegmental atelectatic changes/scarring are seen, for example in the left lower lobe at image 221 is seen in the sagittal orientation. There appears to be mosaic perfusion patent identified, that may represent small airways disease. Some apical scarring is identified. Calcified granuloma is identified in the left upper lobe at image 58 indicating prior granulomatous disease. Overall, no discrete pulmonary nodule is appreciated. In the abdomen, the liver and spleen appears unremarkable. The liver edge is smooth. Calcified granuloma is identified near the dome of the liver. Gallstone is seen in the gallbladder with no wall thickening or biliary ductal dilation seen. The pancreas appears unremarkable. The adrenal glands are not enlarged though tiny calcification seen in the medial limb of the left adrenal gland. No acute renal pathology is seen and no hydronephrosis or perirenal fluid collections identified. Some cortical scarring is noted. Bowel is not well assessed by CT angiography as enteric contrast not given. No obvious bowel dilation is identified. Scattered colonic diverticulum is seen with no inflammatory changes identified. Bilateral fat-containing inguinal hernia is seen, left greater than right. The bladder appears unremarkable. Punctate calcification seen in the prostate gland and the prostate gland is mildly prominent. No free air or free fluid seen abdomen and pelvis. No significant retroperitoneal adenopathy is identified. In the bony windows, no acute bony pathology is identified. Some degenerative changes are noted. CONCLUSIONS: 1. Patient has a diagnosis of aortic stenosis. The aortic valve is tricuspid. Agatston score is approximately 1893. No calcification is identified in the aortic root or ascending thoracic aorta, however, there is moderate calcification identified in the transverse arch, descending thoracic aorta as well as in the infrarenal abdominal aorta. This also atherosclerotic ulceration identified infrarenal abdominal aorta. Finally, some noncalcific atherosclerotic plaque is seen in the descending thoracic aorta for example at image 230 and the thickness of the noncalcific atherosclerosis is up to 5 mm; at image 243, the thickness of the noncalcific atherosclerosis is up to 7 mm. No acute aortic pathology is identified. Substantial mitral annular calcification is identified. Dimensions that may be helpful for TAVR as described above. There is moderate focal calcification identified at the level of the right, femoral artery at the mid right femoral head level, image 597. 2. Patient is post coronary artery bypass surgery a total of three bypass graft is identified as detailed above. Focal calcific atherosclerosis seen in the proximal left subclavian artery with no significant obstructive lesion identified, at image 57. 3. Pulmonary findings as described above. Evidence of prior granulomatous disease. 4. Other findings as described above. 5. An addendum will be dictated by the Hall Supervisor Radiologist regarding the nonvascular findings. Signed: Puneet Espinoza MD Report Verified Date/Time: 04/19/2018 14:19:03 Reading Location: [place] [address] Cardiology MRI -Creatinine (04/19/2018 9:34 AM) Component Value Ref Range POC-Creatinine 1.3Comment: TESTED AT [address] 0.6 - 1.3 mg/dL [address] POC-EGFR 52 mL/min/1.73M2 Specimen Performing Laboratory Blood [facility] [address] [address] after 07/10/2017
--- OUTSIDE RECORDS SUMMARY | 2018-07-11 12:28 | XMS REPORT ---
:1930 Author Organization [facility] Address [address] [place] [address] Care Team Providers Name Role Phone TONIE STAPLES Unavailable Unavailable ROBERT GARCIA Unavailable Unavailable Problems This patient has no known problems. Allergies, Adverse Reactions, Alerts This patient has no known allergies or adverse reactions. Medications This patient has no known medications. Results Test Description Test Time Test Comments Text Results Atomic Results Result Comments POCT-GLUCOSE METER 2018-05-30 08:23:00 Test Item Value Reference Range Comments POC-GLUCOSE METER (BEAKER) (test 112 mg/dL 70-110 TESTED AT [address] hgli=1141) [facility] [address] POCT-GLUCOSE [id number] 08:17:00 Test Item Value Reference Range Comments POC-GLUCOSE METER (BEAKER) 98 mg/dL 70-110 TESTED AT [address] (test xtce=6367) [place] [id number] BASIC METABOLIC [id number] 06:16:00 Test Item Value Reference Range Comments SODIUM (BEAKER) (test 136 meq/L 136-145 wegi=524) POTASSIUM (BEAKER) (test 3.7 meq/L 3.5-5.1 kvwm=293) CHLORIDE (BEAKER) (test 101 meq/L 98-107 ioqy=976) CO2 (BEAKER) (test 26 meq/L 22-29 blkw=727) BLOOD UREA NITROGEN 28 mg/dL 7-21 (BEAKER) (test xits=464) CREATININE (BEAKER) (test 1.31 mg/dL 0.57-1.25 fkbb=271) GLUCOSE RANDOM (BEAKER) 74 mg/dL 70-105 (test ifpg=832) CALCIUM (BEAKER) (test 8.9 mg/dL 8.4-10.2 rfsy=169) EGFR (BEAKER) (test 52 mL/min/1.73 sq m ESTIMATED GFR IS NOT gtuu=5861) ACCURATE CREATININE CLEARANCE IN PREDICTING GLOMERULAR FILTRATION RATE. ESTIMATED GFR IS NOT APPLICABLE FOR DIALYSIS PATIENTS. PROTHROMBIN [id number] 05:42:00 Test Item Value Reference Range Comments PROTIME (BEAKER) (test zpae=580) 22.3 seconds 11.7-14.7 INR (BEAKER) (test dcjq=768) 2.0 <=5.9 RECOMMENDED COUMADIN/WARFARIN INR THERAPY RANGESSTANDARD DOSE: 2.0 - 3.0 Includes: PROPHYLAXIS forvenous thrombosis, systemic embolization; TREATMENT for venous thrombosis and/or pulmonary embolus.HIGH RISK: Target INR is 2.5-3.5 for patients with mechanical heart valves.CBC (HEMOGRAM ONLY)2018-05-30 05:34:00 Test Item Value Reference Range Comments WHITE BLOOD CELL COUNT (BEAKER) (test wzrh=149) 10.0 K/ L 3.5-10.5 RED BLOOD CELL COUNT (BEAKER) (test ubvv=689) 3.44 M/ L 4.63-6.08 HEMOGLOBIN (BEAKER) (test vxku=508) 9.6 GM/DL 13.7-17.5 HEMATOCRIT (BEAKER) (test toca=572) 30.8 % 40.1-51.0 MEAN CORPUSCULAR VOLUME (BEAKER) (test izqk=683) 89.5 fL 79.0-92.2 MEAN CORPUSCULAR HEMOGLOBIN (BEAKER) (test 27.9 pg 25.7-32.2 nzco=697) MEAN CORPUSCULAR HEMOGLOBIN CONC (BEAKER) (test 31.2 GM/DL 32.3-36.5 svpg=484) RED CELL DISTRIBUTION WIDTH (BEAKER) (test 16.1 % 11.6-14.4 iazi=494) PLATELET COUNT (BEAKER) (test tdic=264) 169 K/CU MM 150-450 MEAN PLATELET VOLUME (BEAKER) (test wuuh=026) 11.5 fL 9.4-12.4 NUCLEATED RED BLOOD CELLS (BEAKER) (test 0 /100 WBC 0-0 nypd=314) POCT-GLUCOSE [id number] 21:35:00 Test Item Value Reference Range Comments POC-GLUCOSE METER (BEAKER) 203 mg/dL 70-110 TESTED AT [address] (test yciz=8237) [place] [id number] POCT-GLUCOSE [id number] 16:47:00 Test Item Value Reference Range Comments POC-GLUCOSE METER (BEAKER) 177 mg/dL 70-110 TESTED AT [address] (test auon=4130) [place] [id number] POCT-GLUCOSE [id number] 12:17:00 Test Item Value Reference Range Comments POC-GLUCOSE METER (BEAKER) 139 mg/dL 70-110 TESTED AT [address] (test glzl=3136) [place] [address] POCT-GLUCOSE [id number] 08:38:00 Test Item Value Reference Range Comments POC-GLUCOSE METER (BEAKER) 83 mg/dL 70-110 TESTED AT [address] (test bzzx=5553) [place] [id number] PROTHROMBIN [id number] 06:39:00 Test Item Value Reference Range Comments PROTIME (BEAKER) (test ylvz=290) 23.6 seconds 11.7-14.7 INR (BEAKER) (test frxx=822) 2.1 <=5.9 RECOMMENDED COUMADIN/WARFARIN INR THERAPY RANGESSTANDARD DOSE: 2.0 - 3.0 Includes: PROPHYLAXIS forvenous thrombosis, systemic embolization; TREATMENT for venous thrombosis and/or pulmonary embolus.HIGH RISK: Target INR is 2.5-3.5 for patients with mechanical heart valves.POCT-GLUCOSE [id number] 21:31:00 Test Item Value Reference Range Comments POC-GLUCOSE METER (BEAKER) 187 mg/dL 70-110 TESTED AT [address] (test rgyw=8577) [place] [id number] POCT-GLUCOSE [id number] 11:55:00 Test Item Value Reference Range Comments POC-GLUCOSE METER (BEAKER) 250 mg/dL 70-110 TESTED AT [address] (test dpgx=6278) [place] [address] POCT-GLUCOSE [id number] 07:55:00 Test Item Value Reference Range Comments POC-GLUCOSE METER (BEAKER) 156 mg/dL 70-110 TESTED AT [address] (test bgda=6551) [place] [address] [id number] 07:33:00 Test Item Value Reference Range Comments MAGNESIUM (BEAKER) (test hfyr=638) 2.3 mg/dL 1.6-2.6 PROTHROMBIN [id number] 06:33:00 Test Item Value Reference Range Comments PROTIME (BEAKER) (test pncy=384) 20.3 seconds 11.7-14.7 INR (BEAKER) (test gbfw=087) 1.7 <=5.9 RECOMMENDED COUMADIN/WARFARIN INR THERAPY RANGESSTANDARD DOSE: 2.0 - 3.0 Includes: PROPHYLAXIS forvenous thrombosis, systemic embolization; TREATMENT for venous thrombosis and/or pulmonary embolus.HIGH RISK: Target INR is 2.5-3.5 for patients with mechanical heart valves.BASIC METABOLIC [id number] 21:18: 00 Test Item Value Reference Range Comments SODIUM (BEAKER) (test 137 meq/L 136-145 vumo=047) POTASSIUM (BEAKER) (test 4.1 meq/L 3.5-5.1 maat=681) CHLORIDE (BEAKER) (test 102 meq/L 98-107 xjdc=261) CO2 (BEAKER) (test 26 meq/L 22-29 twxb=727) BLOOD UREA NITROGEN 32 mg/dL 7-21 (BEAKER) (test kiuy=091) CREATININE (BEAKER) (test 1.30 mg/dL 0.57-1.25 ypnk=367) GLUCOSE RANDOM (BEAKER) 95 mg/dL 70-105 (test qdcs=841) CALCIUM (BEAKER) (test 9.1 mg/dL 8.4-10.2 vuof=858) EGFR (BEAKER) (test 52 mL/min/1.73 sq m ESTIMATED GFR IS NOT leal=1801) ACCURATE CREATININE CLEARANCE IN PREDICTING GLOMERULAR FILTRATION RATE. ESTIMATED GFR IS NOT APPLICABLE FOR DIALYSIS PATIENTS. POCT-GLUCOSE [id number] 21:16:00 Test Item Value Reference Range Comments POC-GLUCOSE METER (BEAKER) 94 mg/dL 70-110 TESTED AT [facility] [address] [facility] (test zvhc=3163) [facility] [address] CBC (HEMOGRAM ONLY)2018-05-27 21:04:00 Test Item Value Reference Range Comments WHITE BLOOD CELL COUNT (BEAKER) (test pgmd=337) 11.1 K/ L 3.5-10.5 RED BLOOD CELL COUNT (BEAKER) (test gfuu=901) 3.63 M/ L 4.63-6.08 HEMOGLOBIN (BEAKER) (test kpvf=633) 10.1 GM/DL 13.7-17.5 HEMATOCRIT (BEAKER) (test gzxm=855) 32.6 % 40.1-51.0 MEAN CORPUSCULAR VOLUME (BEAKER) (test pfkd=488) 89.8 fL 79.0-92.2 MEAN CORPUSCULAR HEMOGLOBIN (BEAKER) (test 27.8 pg 25.7-32.2 gjbn=166) MEAN CORPUSCULAR HEMOGLOBIN CONC (BEAKER) (test 31.0 GM/DL 32.3-36.5 fliv=342) RED CELL DISTRIBUTION WIDTH (BEAKER) (test 15.9 % 11.6-14.4 edwp=989) PLATELET COUNT (BEAKER) (test zbnc=783) 171 K/CU MM 150-450 MEAN PLATELET VOLUME (BEAKER) (test wqna=514) 11.4 fL 9.4-12.4 NUCLEATED RED BLOOD CELLS (BEAKER) (test 0 /100 WBC 0-0 fjyw=181) POCT-GLUCOSE [id number] 17:03:00 Test Item Value Reference Range Comments POC-GLUCOSE METER (BEAKER) 226 mg/dL 70-110 TESTED AT [address] (test hmia=1384) [place] [address] POCT-GLUCOSE [id number] 11:53:00 Test Item Value Reference Range Comments POC-GLUCOSE METER (BEAKER) 154 mg/dL 70-110 TESTED AT [address] (test dsxo=4279) [place] [address] POCT-GLUCOSE [id number] 07:58:00 Test Item Value Reference Range Comments POC-GLUCOSE METER (BEAKER) 78 mg/dL 70-110 TESTED AT [address] (test pdbj=3610) [place] [address] [id number] 06:27:00 Test Item Value Reference Range Comments MAGNESIUM (BEAKER) (test tqpa=010) 2.1 mg/dL 1.6-2.6 PROTHROMBIN [id number] 05:53:00 Test Item Value Reference Range Comments PROTIME (BEAKER) (test otus=382) 19.1 seconds 11.7-14.7 INR (BEAKER) (test ftvk=703) 1.6 <=5.9 RECOMMENDED COUMADIN/WARFARIN INR THERAPY RANGESSTANDARD DOSE: 2.0 - 3.0 Includes: PROPHYLAXIS forvenous thrombosis, systemic embolization; TREATMENT for venous thrombosis and/or pulmonary embolus.HIGH RISK: Target INR is 2.5-3.5 for patients with mechanical heart valves.POCT-GLUCOSE [id number] 21:34:00 Test Item Value Reference Range Comments POC-GLUCOSE METER (BEAKER) 221 mg/dL 70-110 TESTED AT [address] (test zuol=5755) [place] [address] POCT-GLUCOSE [id number] 18:12:00 Test Item Value Reference Range Comments POC-GLUCOSE METER (BEAKER) 173 mg/dL 70-110 TESTED AT [address] (test gxaf=7814) [place] [address] POCT-GLUCOSE [id number] 12:42:00 Test Item Value Reference Range Comments POC-GLUCOSE METER (BEAKER) 286 mg/dL 70-110 TESTED AT [address] (test qjuu=5221) [place] [address] POCT-GLUCOSE [id number] 08:40:00 Test Item Value Reference Range Comments POC-GLUCOSE METER (BEAKER) 91 mg/dL 70-110 TESTED AT [address] (test mlxv=2121) [place] [address] [id number] 07:52:00 Test Item Value Reference Range Comments MAGNESIUM (BEAKER) (test dcea=652) 2.2 mg/dL 1.6-2.6 PROTHROMBIN [id number] 07:30:00 Test Item Value Reference Range Comments PROTIME (BEAKER) (test upxq=578) 15.1 seconds 11.7-14.7 INR (BEAKER) (test yseu=368) 1.2 <=5.9 RECOMMENDED COUMADIN/WARFARIN INR THERAPY RANGESSTANDARD DOSE: 2.0 - 3.0 Includes: PROPHYLAXIS forvenous thrombosis, systemic embolization; TREATMENT for venous thrombosis and/or pulmonary embolus.HIGH RISK: Target INR is 2.5-3.5 for patients with mechanical heart valves.CBC W/PLT COUNT & AUTO [id number] 07:24:00 Test Item Value Reference Range Comments WHITE BLOOD CELL COUNT (BEAKER) (test ntkl=521) 12.2 K/ L 3.5-10.5 RED BLOOD CELL COUNT (BEAKER) (test bpqv=857) 3.70 M/ L 4.63-6.08 HEMOGLOBIN (BEAKER) (test glqs=965) 10.6 GM/DL 13.7-17.5 HEMATOCRIT (BEAKER) (test ftpm=517) 33.2 % 40.1-51.0 MEAN CORPUSCULAR VOLUME (BEAKER) (test ciwh=689) 89.7 fL 79.0-92.2 MEAN CORPUSCULAR HEMOGLOBIN (BEAKER) (test 28.6 pg 25.7-32.2 ocgz=776) MEAN CORPUSCULAR HEMOGLOBIN CONC (BEAKER) (test 31.9 GM/DL 32.3-36.5 dqzv=877) RED CELL DISTRIBUTION WIDTH (BEAKER) (test 15.9 % 11.6-14.4 lhho=365) PLATELET COUNT (BEAKER) (test nnwi=181) 137 K/CU MM 150-450 MEAN PLATELET VOLUME (BEAKER) (test rhjh=783) 11.1 fL 9.4-12.4 NUCLEATED RED BLOOD CELLS (BEAKER) (test 0 /100 WBC 0-0 epsh=880) NEUTROPHILS RELATIVE PERCENT (BEAKER) (test 54 % rbqj=639) LYMPHOCYTES RELATIVE PERCENT (BEAKER) (test 33 % rtlh=924) MONOCYTES RELATIVE PERCENT (BEAKER) (test 8 % hpvm=407) EOSINOPHILS RELATIVE PERCENT (BEAKER) (test 3 % izmx=337) BASOPHILS RELATIVE PERCENT (BEAKER) (test 0 % dfrm=107) NEUTROPHILS ABSOLUTE COUNT (BEAKER) (test 6.59 K/ L 1.78-5.38 lcrv=052) LYMPHOCYTES ABSOLUTE COUNT (BEAKER) (test 3.96 K/ L 1.32-3.57 hxux=579) MONOCYTES ABSOLUTE COUNT (BEAKER) (test 1.00 K/ L 0.30-0.82 tafu=469) EOSINOPHILS ABSOLUTE COUNT (BEAKER) (test 0.30 K/ L 0.04-0.54 oizy=505) BASOPHILS ABSOLUTE COUNT (BEAKER) (test 0.05 K/ L 0.01-0.08 faem=212) IMMATURE GRANULOCYTES-RELATIVE PERCENT (BEAKER) 2 % 0-1 (test aund=4231) POCT-GLUCOSE [id number] 22:05:00 Test Item Value Reference Range Comments POC-GLUCOSE METER (BEAKER) 122 mg/dL 70-110 TESTED AT [facility] [address] (test dlia=6975) [facility] [address] BASIC METABOLIC [id number] 21:48:00 Test Item Value Reference Range Comments SODIUM (BEAKER) (test 135 meq/L 136-145 etqn=102) POTASSIUM (BEAKER) (test 4.2 meq/L 3.5-5.1 rlio=431) CHLORIDE (BEAKER) (test 101 meq/L 98-107 sncg=909) CO2 (BEAKER) (test 25 meq/L 22-29 fywl=443) BLOOD UREA NITROGEN 27 mg/dL 7-21 (BEAKER) (test iclg=908) CREATININE (BEAKER) (test 1.09 mg/dL 0.57-1.25 rtvb=809) GLUCOSE RANDOM (BEAKER) 139 mg/dL 70-105 (test zvzz=758) CALCIUM (BEAKER) (test 9.5 mg/dL 8.4-10.2 uhex=031) EGFR (BEAKER) (test 64 mL/min/1.73 sq m ESTIMATED GFR IS NOT ttzu=2986) ACCURATE CREATININE CLEARANCE IN PREDICTING GLOMERULAR FILTRATION RATE. ESTIMATED GFR IS NOT APPLICABLE FOR DIALYSIS PATIENTS. CBC (HEMOGRAM ONLY)2018-05-25 21:37:00 Test Item Value Reference Range Comments WHITE BLOOD CELL COUNT (BEAKER) (test nueb=190) 17.3 K/ L 3.5-10.5 RED BLOOD CELL COUNT (BEAKER) (test xdxh=029) 3.84 M/ L 4.63-6.08 HEMOGLOBIN (BEAKER) (test yoay=840) 11.0 GM/DL 13.7-17.5 HEMATOCRIT (BEAKER) (test kpmy=907) 33.5 % 40.1-51.0 MEAN CORPUSCULAR VOLUME (BEAKER) (test blsw=686) 87.2 fL 79.0-92.2 MEAN CORPUSCULAR HEMOGLOBIN (BEAKER) (test 28.6 pg 25.7-32.2 ztsk=827) MEAN CORPUSCULAR HEMOGLOBIN CONC (BEAKER) (test 32.8 GM/DL 32.3-36.5 btxd=998) RED CELL DISTRIBUTION WIDTH (BEAKER) (test 15.8 % 11.6-14.4 wwxl=369) PLATELET COUNT (BEAKER) (test ctwx=207) 151 K/CU MM 150-450 MEAN PLATELET VOLUME (BEAKER) (test adux=832) 11.6 fL 9.4-12.4 NUCLEATED RED BLOOD CELLS (BEAKER) (test 0 /100 WBC 0-0 bfnm=189) CT, BRAIN, WITHOUT [id number] 19:17:00FINAL REPORT CT head without contrast 05/25/2018 7:14 PM CLINICAL HISTORY: encephalopathy TECHNIQUE: Axial noncontrast CT images through the head were obtained. This examination was performed according to our departmental dose optimization program, which includes automated exposure control, adjustment of the mA and/or kV according to patient size, and/or use of iterated reconstruction technique. COMPARISON: 05/23/2018 FINDINGS: There is no hemorrhage , extra-axial collection, mass, hydrocephalus, or midline shift. [...] 2. Stable intracranial appearance when compared to . 3. If concern for new pathology persists, further evaluation with MRI is recommended. Signed: Micheal Boyikn Verified Date/Time: 2017 19:17:21 Reading Location: [facility] Radiology Reading Room Electronicallysigned by: MICHEAL BOYKIN M.D. on 05/25/2018 07:17 PMPOCT- GLUCOSE [id number] 17:10:00 Test Item Value Reference Range Comments POC-GLUCOSE METER (BEAKER) 186 mg/dL 70-110 TESTED AT [facility] [address] [facility] (test lysb=1043) [facility] [address] POCT-GLUCOSE [id number] 11:53:00 Test Item Value Reference Range Comments POC-GLUCOSE METER (BEAKER) 152 mg/dL 70-110 TESTED AT [facility] [address] [facility] (test awss=2112) [facility] [address] POCT-GLUCOSE [id number] 08:24:00 Test Item Value Reference Range Comments POC-GLUCOSE METER (BEAKER) 126 mg/dL 70-110 TESTED AT [facility] [address] [facility] (test llzl=8951) [facility] [address] BASIC METABOLIC [id number] 06:46:00 Test Item Value Reference Range Comments SODIUM (BEAKER) (test 137 meq/L 136-145 tmga=571) POTASSIUM (BEAKER) (test 3.8 meq/L 3.5-5.1 Specimen slightly cgut=021) hemolyzed CHLORIDE (BEAKER) (test 101 meq/L 98-107 iqmh=480) CO2 (BEAKER) (test 25 meq/L 22-29 cbtz=841) BLOOD UREA NITROGEN 26 mg/dL 7-21 (BEAKER) (test cjku=361) CREATININE (BEAKER) (test 0.94 mg/dL 0.57-1.25 Specimen slightly rlus=325) hemolyzed GLUCOSE RANDOM (BEAKER) 110 mg/dL 70-105 (test nxwr=147) CALCIUM (BEAKER) (test 9.2 mg/dL 8.4-10.2 yeow=557) EGFR (BEAKER) (test 76 mL/min/1.73 sq m ESTIMATED GFR IS NOT mtms=7782) ACCURATE CREATININE CLEARANCE IN PREDICTING GLOMERULAR FILTRATION RATE. ESTIMATED GFR IS NOT APPLICABLE FOR DIALYSIS PATIENTS. BLOOD [id number] 06:00:00 Test Item Value Reference Range Comments CULTURE (BEAKER) (test uqtr=7201) No growth in 5 days BLOOD [id number] 06:00:00 Test Item Value Reference Range Comments CULTURE (BEAKER) (test vzvm=4287) No growth in 5 days [id number] 05:50:00 Test Item Value Reference Range Comments MAGNESIUM (BEAKER) (test 2.3 mg/dL 1.6-2.6 Specimen slightly hemolyzed iatb=009) PROTHROMBIN [id number] 05:44:00 Test Item Value Reference Range Comments PROTIME (BEAKER) (test kddn=880) 13.8 seconds 11.7-14.7 INR (BEAKER) (test vach=816) 1.1 <=5.9 RECOMMENDED COUMADIN/WARFARIN INR THERAPY RANGESSTANDARD DOSE: 2.0 - 3.0 Includes: PROPHYLAXIS forvenous thrombosis, systemic embolization; TREATMENT for venous thrombosis and/or pulmonary embolus.HIGH RISK: Target INR is 2.5-3.5 for patients with mechanical heart valves.POCT-GLUCOSE [id number] 22:35:00 Test Item Value Reference Range Comments POC-GLUCOSE METER (BEAKER) 216 mg/dL 70-110 TESTED AT [address] (test nsnp=0546) [facility] [address] POCT-GLUCOSE [id number] 17:10:00 Test Item Value Reference Range Comments POC-GLUCOSE METER (BEAKER) 240 mg/dL 70-110 TESTED AT [address] (test sxxt=7490) [facility] [address] POCT-GLUCOSE [id number] 12:11:00 Test Item Value Reference Range Comments POC-GLUCOSE METER (BEAKER) 172 mg/dL 70-110 TESTED AT [address] (test segy=4399) [facility] [address] [id number] 04:19:00 Test Item Value Reference Range Comments MAGNESIUM (BEAKER) (test vgel=262) 2.2 mg/dL 1.6-2.6 BASIC METABOLIC [id number] 04:19:00 Test Item Value Reference Range Comments SODIUM (BEAKER) (test 140 meq/L 136-145 khql=073) POTASSIUM (BEAKER) (test 3.6 meq/L 3.5-5.1 vavk=632) CHLORIDE (BEAKER) (test 105 meq/L 98-107 orqy=019) CO2 (BEAKER) (test 28 meq/L 22-29 zcfp=586) BLOOD UREA NITROGEN 33 mg/dL 7-21 (BEAKER) (test nfna=996) CREATININE (BEAKER) (test 0.96 mg/dL 0.57-1.25 iazi=241) GLUCOSE RANDOM (BEAKER) 128 mg/dL 70-105 (test pgct=356) CALCIUM (BEAKER) (test 9.0 mg/dL 8.4-10.2 erlh=294) EGFR (BEAKER) (test 74 mL/min/1.73 sq m ESTIMATED GFR IS NOT vfqx=9138) ACCURATE CREATININE CLEARANCE IN PREDICTING GLOMERULAR FILTRATION RATE. ESTIMATED GFR IS NOT APPLICABLE FOR DIALYSIS PATIENTS. PROTHROMBIN [id number] 03:49:00 Test Item Value Reference Range Comments PROTIME (BEAKER) (test lled=870) 13.8 seconds 11.7-14.7 INR (BEAKER) (test hmai=015) 1.1 <=5.9 RECOMMENDED COUMADIN/WARFARIN INR THERAPY RANGESSTANDARD DOSE: 2.0 - 3.0 Includes: PROPHYLAXIS forvenous thrombosis, systemic embolization; TREATMENT for venous thrombosis and/or pulmonary embolus.HIGH RISK: Target INR is 2.5-3.5 for patients with mechanical heart valves.While on warfarin.CBC (HEMOGRAM ONLY) 2018-05-24 03:43:00 Test Item Value Reference Range Comments WHITE BLOOD CELL COUNT (BEAKER) (test lsbt=245) 8.8 K/ L 3.5-10.5 RED BLOOD CELL COUNT (BEAKER) (test zpvo=121) 3.23 M/ L 4.63-6.08 HEMOGLOBIN (BEAKER) (test hbwf=300) 9.2 GM/DL 13.7-17.5 HEMATOCRIT (BEAKER) (test daqu=730) 28.5 % 40.1-51.0 MEAN CORPUSCULAR VOLUME (BEAKER) (test gxks=187) 88.2 fL 79.0-92.2 MEAN CORPUSCULAR HEMOGLOBIN (BEAKER) (test 28.5 pg 25.7-32.2 qqwb=997) MEAN CORPUSCULAR HEMOGLOBIN CONC (BEAKER) (test 32.3 GM/DL 32.3-36.5 xohd=171) RED CELL DISTRIBUTION WIDTH (BEAKER) (test 15.0 % 11.6-14.4 ujum=089) PLATELET COUNT (BEAKER) (test bhsa=822) 87 K/CU MM 150-450 MEAN PLATELET VOLUME (BEAKER) (test wqkq=589) 11.6 fL 9.4-12.4 NUCLEATED RED BLOOD CELLS (BEAKER) (test 0 /100 WBC 0-0 rrvg=594) POCT-GLUCOSE [id number] 23:13:00 Test Item Value Reference Range Comments POC-GLUCOSE METER (BEAKER) 170 mg/dL 70-110 TESTED AT [address] (test mlai=8667) [facility] [address] POCT-GLUCOSE [id number] 17:11:00 Test Item Value Reference Range Comments POC-GLUCOSE METER (BEAKER) 290 mg/dL 70-110 TESTED AT [address] (test pxlw=1654) [facility] [address] CT, BRAIN, WITHOUT [id number] 15:31:00Reason for exam:->Cerebral embolizationWhat is the patient's sedation requirement?->No SedationFINAL REPORT CT head without contrast 05/23/2018 3:29 PM CLINICAL HISTORY: Cerebral embolization TECHNIQUE: Axial noncontrast CT images through the head were obtained. This examination was performed according to our departmental dose optimization program, which includes automatedexposure control , adjustment of the mA and/or kV according to patient size, and/or use of iterated reconstruction technique. COMPARISON: MRI brain 05/21/2018 FINDINGS: There is no hemorrhage, extra-axial collection, mass, hydrocephalus, or midline shift. 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 There is mild microvascular ischemia in the supratentorial white matter and elo, with a lacunar infarct in the right caudate nucleus.There is paranasal sinus mucosal thickening without fluid levels. The tympanomastoid cavities are well aerated. The skull is unremarkable. IMPRESSION: No intracranial hemorrhage or mass effect. Stable intracranial appearance when compared to 05/21/2018 If concern for acute pathology persists, further evaluation with MRI is recommended. Signed: Micheal Boykin Verified Date/Time: 05/23/2018 15:31:32 Reading Location: [facility] B1 C013V Neuro Reading Room POCT-GLUCOSE [id number] 12:34:00 Test Item Value Reference Range Comments POC-GLUCOSE METER (BEAKER) 204 mg/dL 70-110 TESTED AT [address] (test anck=7778) [facility] [address] [id number] 08:24:00 Test Item Value Reference Range Comments FERRITIN (BEAKER) (test abro=061) 435 ng/mL 5-275 POCT-GLUCOSE [id number] 08:21:00 Test Item Value Reference Range Comments POC-GLUCOSE METER (BEAKER) 134 mg/dL 70-110 TESTED AT [facility] [address] [facility] (test kbjo=1857) [facility] [address] IRON, TIBC, % SAT. (WITHOUT FERRITIN)2018-05-23 07:34:00 Test Item Value Reference Range Comments IRON (BEAKER) (test gfbj=633) 63 ug/dL 40-160 TOTAL IRON BINDING CAPACITY (BEAKER) (test 224 ug/dL 250-450 yfcj=591) IRON % SATURATION (2) (BEAKER) (test xfob=7743) 28 % 20-55 [id number] 06:45:00 Test Item Value Reference Range Comments PARTIAL THROMBOPLASTIN TIME (BEAKER) (test 94.3 seconds 22.5-36.0 gcpb=236) [id number] 06:05:00 Test Item Value Reference Range Comments MAGNESIUM (BEAKER) (test bbnc=711) 2.3 mg/dL 1.6-2.6 BASIC METABOLIC [id number] 06:05:00 Test Item Value Reference Range Comments SODIUM (BEAKER) (test 138 meq/L 136-145 qdao=695) POTASSIUM (BEAKER) (test 3.5 meq/L 3.5-5.1 fiyu=028) CHLORIDE (BEAKER) (test 102 meq/L 98-107 qlbj=375) CO2 (BEAKER) (test 27 meq/L 22-29 ergc=725) BLOOD UREA NITROGEN 38 mg/dL 7-21 (BEAKER) (test maxr=454) CREATININE (BEAKER) (test 1.16 mg/dL 0.57-1.25 brxx=509) GLUCOSE RANDOM (BEAKER) 118 mg/dL 70-105 (test ulpt=686) CALCIUM (BEAKER) (test 8.9 mg/dL 8.4-10.2 ehyy=590) EGFR (BEAKER) (test 60 mL/min/1.73 sq m ESTIMATED GFR IS NOT bnsr=7749) ACCURATE CREATININE CLEARANCE IN PREDICTING GLOMERULAR FILTRATION RATE. ESTIMATED GFR IS NOT APPLICABLE FOR DIALYSIS PATIENTS. CBC (HEMOGRAM ONLY)2018-05-23 05:55:00 Test Item Value Reference Range Comments WHITE BLOOD CELL COUNT (BEAKER) (test kfgo=197) 9.8 K/ L 3.5-10.5 RED BLOOD CELL COUNT (BEAKER) (test yeai=076) 2.77 M/ L 4.63-6.08 HEMOGLOBIN (BEAKER) (test pqit=272) 7.7 GM/DL 13.7-17.5 HEMATOCRIT (BEAKER) (test kghx=681) 24.0 % 40.1-51.0 MEAN CORPUSCULAR VOLUME (BEAKER) (test zjos=911) 86.6 fL 79.0-92.2 MEAN CORPUSCULAR HEMOGLOBIN (BEAKER) (test 27.8 pg 25.7-32.2 tthy=204) MEAN CORPUSCULAR HEMOGLOBIN CONC (BEAKER) (test 32.1 GM/DL 32.3-36.5 tlcw=142) RED CELL DISTRIBUTION WIDTH (BEAKER) (test 15.9 % 11.6-14.4 pzwg=976) PLATELET COUNT (BEAKER) (test hdxg=479) 74 K/CU MM 150-450 MEAN PLATELET VOLUME (BEAKER) (test fqvc=817) 11.8 fL 9.4-12.4 NUCLEATED RED BLOOD CELLS (BEAKER) (test 0 /100 WBC 0-0 wqlf=832) [id number] 23:49:00 Test Item Value Reference Range Comments PARTIAL THROMBOPLASTIN TIME (BEAKER) (test 82.0 seconds 22.5-36.0 utxm=452) POCT-GLUCOSE [id number] 22:25:00 Test Item Value Reference Range Comments POC-GLUCOSE METER (BEAKER) 212 mg/dL 70-110 TESTED AT [address] (test qlsh=2666) [place] [address] [id number] 21:32:00 Test Item Value Reference Range Comments PARTIAL THROMBOPLASTIN TIME (BEAKER) (test 131.6 seconds 22.5-36.0 steg=138) POCT-GLUCOSE [id number] 17:58:00 Test Item Value Reference Range Comments POC-GLUCOSE METER (BEAKER) 296 mg/dL 70-110 TESTED AT [address] (test imch=5535) [place] [address] [id number] 14:27:00 Test Item Value Reference Range Comments PARTIAL THROMBOPLASTIN TIME (BEAKER) (test 96.3 seconds 22.5-36.0 kpeu=260) URINE [id number] 12:50:00 Test Item Value Reference Range Comments CULTURE (BEAKER) (test fvhm=6081) No growth [id number] 12:49:00 Test Item Value Reference Range Comments PARTIAL THROMBOPLASTIN TIME (BEAKER) (test 150.3 seconds 22.5-36.0 hrld=710) [id number] 05:53:00 Test Item Value Reference Range Comments PARTIAL THROMBOPLASTIN TIME (BEAKER) (test 44.1 seconds 22.5-36.0 jwzn=155) [id number] 03:32:00 Test Item Value Reference Range Comments PROTIME (BEAKER) (test sllg=415) 15.0 seconds 11.7-14.7 INR (BEAKER) (test mpqz=428) 1.2 <=5.9 PARTIAL THROMBOPLASTIN TIME (BEAKER) (test 179.7 seconds 22.5-36.0 xevx=489) RECOMMENDED COUMADIN/WARFARIN INR THERAPY RANGESSTANDARD DOSE: 2.0 - 3.0 Includes: PROPHYLAXIS forvenous thrombosis, systemic embolization; TREATMENT for venous thrombosis and/or pulmonary embolus.HIGH RISK: Target INR is 2.5-3.5 for patients with mechanical heart valves.[id number] 02:54:00 Test Item Value Reference Range Comments PHOSPHORUS (BEAKER) (test ehen=514) 3.6 mg/dL 2.3-4.7 [id number] 02:54:00 Test Item Value Reference Range Comments MAGNESIUM (BEAKER) (test rdrf=865) 2.4 mg/dL 1.6-2.6 BASIC METABOLIC [id number] 02:54:00 Test Item Value Reference Range Comments SODIUM (BEAKER) (test 138 meq/L 136-145 obce=749) POTASSIUM (BEAKER) (test 3.7 meq/L 3.5-5.1 wsgo=529) CHLORIDE (BEAKER) (test 101 meq/L 98-107 ooft=854) CO2 (BEAKER) (test 27 meq/L 22-29 dnbv=481) BLOOD UREA NITROGEN 44 mg/dL 7-21 (BEAKER) (test ikdk=908) CREATININE (BEAKER) (test 1.30 mg/dL 0.57-1.25 ilhh=818) GLUCOSE RANDOM (BEAKER) 131 mg/dL 70-105 (test gwrq=319) CALCIUM (BEAKER) (test 8.9 mg/dL 8.4-10.2 uqky=594) EGFR (BEAKER) (test 52 mL/min/1.73 sq m ESTIMATED GFR IS NOT mozm=5930) ACCURATE CREATININE CLEARANCE IN PREDICTING GLOMERULAR FILTRATION RATE. ESTIMATED GFR IS NOT APPLICABLE FOR DIALYSIS PATIENTS. VANCOMYCIN LEVEL, [id number] 02:53:00 Test Item Value Reference Range Comments VANCOMYCIN RANDOM (BEAKER) (test onmi=318) 24.4 ug/mL Reference Range: No NormalsCALCIUM, [id number] 02:49:00 Test Item Value Reference Range Comments CALCIUM IONIZED (BEAKER) (test ecur=751) 1.15 mmol/L 1.12-1.27 PH, BLOOD (BEAKER) (test kuug=9817) 7.40 CBC (HEMOGRAM ONLY)2018-05-22 02:29:00 Test Item Value Reference Range Comments WHITE BLOOD CELL COUNT (BEAKER) (test gxps=575) 13.9 K/ L 3.5-10.5 RED BLOOD CELL COUNT (BEAKER) (test cfkn=443) 2.94 M/ L 4.63-6.08 HEMOGLOBIN (BEAKER) (test cupv=064) 8.3 GM/DL 13.7-17.5 HEMATOCRIT (BEAKER) (test jstm=554) 25.5 % 40.1-51.0 MEAN CORPUSCULAR VOLUME (BEAKER) (test tjim=018) 86.7 fL 79.0-92.2 MEAN CORPUSCULAR HEMOGLOBIN (BEAKER) (test 28.2 pg 25.7-32.2 jjem=141) MEAN CORPUSCULAR HEMOGLOBIN CONC (BEAKER) (test 32.5 GM/DL 32.3-36.5 gvhy=029) RED CELL DISTRIBUTION WIDTH (BEAKER) (test 15.9 % 11.6-14.4 cbzn=604) PLATELET COUNT (BEAKER) (test whgf=711) 67 K/CU MM 150-450 MEAN PLATELET VOLUME (BEAKER) (test bkgf=655) 11.8 fL 9.4-12.4 NUCLEATED RED BLOOD CELLS (BEAKER) (test 0 /100 WBC 0-0 ncva=318) [id number] 00:28:00 Test Item Value Reference Range Comments PROTIME (BEAKER) (test squv=106) 15.9 seconds 11.7-14.7 INR (BEAKER) (test ltrw=963) 1.3 <=5.9 PARTIAL THROMBOPLASTIN TIME (BEAKER) (test 170.7 seconds 22.5-36.0 phks=085) RECOMMENDED COUMADIN/WARFARIN INR THERAPY RANGESSTANDARD DOSE: 2.0 - 3.0 Includes: PROPHYLAXIS forvenous thrombosis, systemic embolization; TREATMENT for venous thrombosis and/or pulmonary embolus.HIGH RISK: Target INR is 2.5-3.5 for patients with mechanical heart valves.BASIC METABOLIC [id number] 13:37: 00 Test Item Value Reference Range Comments SODIUM (BEAKER) (test 139 meq/L 136-145 gwlq=717) POTASSIUM (BEAKER) (test 3.8 meq/L 3.5-5.1 zdqu=169) CHLORIDE (BEAKER) (test 101 meq/L 98-107 tjzj=291) CO2 (BEAKER) (test 26 meq/L 22-29 glwf=968) BLOOD UREA NITROGEN 46 mg/dL 7-21 (BEAKER) (test ogof=822) CREATININE (BEAKER) (test 1.60 mg/dL 0.57-1.25 mtfs=942) GLUCOSE RANDOM (BEAKER) 160 mg/dL 70-105 (test lmxh=190) CALCIUM (BEAKER) (test 9.1 mg/dL 8.4-10.2 vlgs=858) EGFR (BEAKER) (test 41 mL/min/1.73 sq m ESTIMATED GFR IS NOT qosm=3874) ACCURATE CREATININE CLEARANCE IN PREDICTING GLOMERULAR FILTRATION RATE. ESTIMATED GFR IS NOT APPLICABLE FOR DIALYSIS PATIENTS. MR, MRA, BRAIN, WITHOUT [id number] 12:04:00Reason for exam:-> Ischemic Stroke EvaluationFINAL REPORT MRA Head and Neck CLINICAL HISTORY: Stroke TECHNIQUE: MRA of thehead utilizing 3-D decs-tn-tjxywt technique, with 3-D reconstructions.MRA of the neck utilizing 2-D and 3-D time- of-flight technique, with 3-D reconstructions. COMPARISON: None FINDINGS: There is no evidence for a [place] proximal branch vessel occlusion. There is no definitive evidence for aneurysm. 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 There is mild to moderate stenosis of the bilateral proximal anterior cerebral arteries in the proximal left middle cerebral artery. There is 20% stenosis of the proximal right internal carotid artery by NASCET criteria. Thereis no focal narrowing of the proximal left internal carotid artery. There are mild stenoses of the bilateral cervical vertebral arteries. IMPRESSION: No evidence for a [place] proximal branchvessel occlusion. No hemodynamically significant stenosis in the internal carotid arteries. 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 Signed: Jaycob Alvarado Verified Date/Time: 05/21/2018 12:04:26 Reading Location: [address] Neuro Reading Room MR, MRA, NECK, WITHOUT IV [id number] 12:04:00Reason for exam:->Ischemic Stroke EvaluationFINAL REPORT MRA Head and Neck CLINICAL HISTORY: Stroke TECHNIQUE: MRA of thehead utilizing 3-D vfds-vj-kmvkvf technique, with 3-D reconstructions.MRA of the neck utilizing 2-D and 3-D gvbg-mv-lifzle technique, with 3-D reconstructions. COMPARISON: None FINDINGS: There is no evidence for a [place] proximal branch vessel occlusion. There is no definitive evidence for aneurysm. 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 There is mild to moderate stenosis of the bilateral proximal anterior cerebral arteries in the proximal left middle cerebral artery. There is 20% stenosis of the proximal right internal carotid artery by NASCET criteria. Thereis no focal narrowing of the proximal left internal carotid artery. There are mild stenoses of the bilateral cervical vertebral arteries. IMPRESSION: No evidence for a [place] proximal branchvessel occlusion. No hemodynamically significant stenosis in the internal carotid arteries. 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 Signed: Jaycob Alvarado Verified Date/Time: 05/21/2018 12:04:26 Reading Location: [address] Neuro Reading Room MR, BRAIN, WITHOUT [id number] 11:58:00Reason for exam:->Ischemic Stroke EvaluationFINAL REPORT MRI Brain without contrast Clinical History: [...] caudate. There is no evidence of acute hemorrhage.There is small focal hemosiderin in the right frontal lobe. There is periventricular and subcorticalwhite matter T2 hyperintensity, which is nonspecific but compatible with chronic microvascular ischemic change. There is generalized parenchymal volume loss without hydrocephalus, midline shift, or apparent mass effect. There are no extra-axial fluid collections. The craniocervical junction is preserved. The major intracranial flow-voids appear patent. 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 Clinical correlation is requested. 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 No acutehemorrhage. Signed: Jaycob Alvarado Verified Date/Time: 05/21/2018 11:58:08 Reading Location: [address] Neuro Reading Room RAD, CHEST, 1 VIEW, NON [id number] 10:54:00Reason for exam:->hypoxemiaShould this be performed at the bedside?->YesFINAL REPORT Portable chest CLINICAL HISTORY: Hypoxemia. COMPARISON STUDY: May 19, 2018. FINDINGS: The cardiac silhouette is unremarkable. The patient is status post sternotomyand valve replacement. There are increased interstitial markings with atelectatic changes in the lung bases and costophrenic angle blunting. No pneumothorax is noted. Degenerative changes are seen. IMPRESSION: No significant change. Signed : Addy Zapataort Verified Date/Time: 05/21/2018 10:54:40 Reading Location: [facility] B1 [id number] Ortho Consult Reading Room HEMOGLOBIN [id number] 08:30:00 Test Item Value Reference Range Comments HEMOGLOBIN A1C (BEAKER) (test ucav=977) 8.1 % 4.3-6.1 LIPID [id number] 07:31:00 Test Item Value Reference Range Comments TRIGLYCERIDES (BEAKER) (test hgju=443) 348 mg/dL CHOLESTEROL (BEAKER) (test gxxs=748) 208 mg/dL HDL CHOLESTEROL (BEAKER) (test jkcl=472) 26 mg/dL LDL CHOLESTEROL CALCULATED (BEAKER) (test 112 mg/dL gciz=827) Triglyceride Reference Range: Low Risk <150 Borderline 150- 199 High Risk 200-499 Very High Risk >=500Cholesterol Reference Range: Low Risk <200 Borderline 200-239 High Risk > 240HDL Cholesterol Reference Range: Low Risk >=60 High Risk <40LDL Cholesterol Reference Range: Optimal <100 Near Optimal 100-129 Borderline 130-159 High 160-189 Very High >=[id number] 04:49:00 Test Item Value Reference Range Comments PHOSPHORUS (BEAKER) (test fsxj=564) 6.4 mg/dL 2.3-4.7 [id number] 04:49:00 Test Item Value Reference Range Comments MAGNESIUM (BEAKER) (test effo=231) 2.3 mg/dL 1.6-2.6 BASIC METABOLIC [id number] 04:49:00 Test Item Value Reference Range Comments SODIUM (BEAKER) (test 139 meq/L 136-145 moqs=970) POTASSIUM (BEAKER) (test 3.8 meq/L 3.5-5.1 kkhp=080) CHLORIDE (BEAKER) (test 102 meq/L 98-107 wwni=169) CO2 (BEAKER) (test 23 meq/L 22-29 glby=084) BLOOD UREA NITROGEN 49 mg/dL 7-21 (BEAKER) (test heak=614) CREATININE (BEAKER) (test 1.96 mg/dL 0.57-1.25 dbak=082) GLUCOSE RANDOM (BEAKER) 175 mg/dL 70-105 (test tdbv=103) CALCIUM (BEAKER) (test 8.7 mg/dL 8.4-10.2 pehj=579) EGFR (BEAKER) (test 33 mL/min/1.73 sq m ESTIMATED GFR IS NOT qqvw=8937) ACCURATE CREATININE CLEARANCE IN PREDICTING GLOMERULAR FILTRATION RATE. ESTIMATED GFR IS NOT APPLICABLE FOR DIALYSIS PATIENTS. VITAMIN [id number] 04:11:00 Test Item Value Reference Range Comments VITAMIN B12 (BEAKER) (test cnpu=359) 692 pg/mL 213-816 TSH/FREE T4 IF [id number] 04:11:00 Test Item Value Reference Range Comments THYROID STIMULATING HORMONE (BEAKER) (test 0.77 uIU/mL 0.35-4.94 vpar=256) CALCIUM, [id number] 03:53:00 Test Item Value Reference Range Comments CALCIUM IONIZED (BEAKER) (test gbhh=348) 1.12 mmol/L 1.12-1.27 PH, BLOOD (BEAKER) (test jmcs=6024) 7.35 CBC (HEMOGRAM ONLY)2018-05-21 03:16:00 Test Item Value Reference Range Comments WHITE BLOOD CELL COUNT (BEAKER) (test ibmo=017) 16.4 K/ L 3.5-10.5 RED BLOOD CELL COUNT (BEAKER) (test zran=657) 3.61 M/ L 4.63-6.08 HEMOGLOBIN (BEAKER) (test ihpr=061) 10.1 GM/DL 13.7-17.5 HEMATOCRIT (BEAKER) (test yqoc=616) 32.2 % 40.1-51.0 MEAN CORPUSCULAR VOLUME (BEAKER) (test nhdq=992) 89.2 fL 79.0-92.2 MEAN CORPUSCULAR HEMOGLOBIN (BEAKER) (test 28.0 pg 25.7-32.2 nhbx=677) MEAN CORPUSCULAR HEMOGLOBIN CONC (BEAKER) (test 31.4 GM/DL 32.3-36.5 lqco=715) RED CELL DISTRIBUTION WIDTH (BEAKER) (test 16.1 % 11.6-14.4 vmle=496) PLATELET COUNT (BEAKER) (test oahs=968) 81 K/CU MM 150-450 MEAN PLATELET VOLUME (BEAKER) (test ylja=159) 11.0 fL 9.4-12.4 NUCLEATED RED BLOOD CELLS (BEAKER) (test 0 /100 WBC 0-0 gslm=044) EEG AWAKE AND [id number] 15:54:00Reason for exam:->AMSDate(s) of EEDATE OF REPORT: 05/20/2018ACC: [id number] Number: [id number] Location : Inpatient ICUStart time: 14:17Stop time: 14:38ICD-10: R56.9CPT Code: 05136 HISTORY: 87 y.o. 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 On nursing reassessment ~7:30pm, he was noted [...] theta, 2-3 Hz widespread but fronto-centrally predominant delta , as well as some diffuse beta. At times, there are occasional left-sided parietal sharply contoured waveforms (maximal at P7) with a limited field. Neither an occipital dominant rhythm, noran organized frequency amplitude gradient is well demonstrable. SIGNIFICANT VIDEO EVENTS: None SIGNIFICANT ELECTROCARDIOGRAM EVENTS: None HV: Hyperventilation was not performed. PHOTIC STIMULATION: Photic stimulation was done from 1-33 Hz; no photic driving was seen; photoparoxysmal responses were absent. IMPRESSION: Abnormal Coma EEG1- Moderate diffuse slowing of the background rhythms2- Possible sharp waves maximal at P7. CLINICAL CORRELATION: Diffuse slowing supports an underlying moderate encephalopathy, possibly of metabolic origin. In the appropriate clinical context, focal sharp waves can indicate a potential seizure focus.. Kita Rooney MDNeurophysiology Fellow, PGY5 Betsey Tello NeurophysiologistCHI [facility] POCT- GLUCOSE [id number] 13:52:00 Test Item Value Reference Range Comments POC-GLUCOSE METER (BEAKER) 163 mg/dL 70-110 TESTED AT [facility] [address] (test weus=6455) [facility] [address] TROPONIN [id number] 11:59:00 Test Item Value Reference Range Comments TROPONIN I (BEAKER) (test hxmg=724) 1.13 ng/mL 0.00-0.03 Troponin I (TnI) levels must be interpreted [...] failure, acidosis, acute neurological disease, and persistent tachyarrhythmia.COMPREHENSIVE METABOLIC [id number] 11:47:00 Test Item Value Reference Range Comments TOTAL PROTEIN (BEAKER) 5.7 gm/dL 6.0-8.3 (test wuey=600) ALBUMIN (BEAKER) (test 3.4 g/dL 3.5-5.0 jvqy=9259) ALKALINE PHOSPHATASE 42 U/L 40-150 (BEAKER) (test zsdv=040) BILIRUBIN TOTAL (BEAKER) 0.8 mg/dL 0.2-1.2 (test iytw=625) SODIUM (BEAKER) (test 139 meq/L 136-145 ebsd=349) POTASSIUM (BEAKER) (test 4.2 meq/L 3.5-5.1 kfbl=527) CHLORIDE (BEAKER) (test 100 meq/L 98-107 zasb=377) CO2 (BEAKER) (test 23 meq/L 22-29 utqg=788) BLOOD UREA NITROGEN 38 mg/dL 7-21 (BEAKER) (test tbhu=433) CREATININE (BEAKER) (test 2.17 mg/dL 0.57-1.25 inqx=263) GLUCOSE RANDOM (BEAKER) 129 mg/dL 70-105 (test ahtf=158) CALCIUM (BEAKER) (test 9.0 mg/dL 8.4-10.2 tkeu=527) AST (SGOT) (BEAKER) (test 27 U/L 5-34 esdx=873) ALT (SGPT) (BEAKER) (test 14 U/L 6-55 ewgb=385) EGFR (BEAKER) (test 29 mL/min/1.73 sq m ESTIMATED GFR IS NOT kuri=1384) ACCURATE CREATININE CLEARANCE IN PREDICTING GLOMERULAR FILTRATION RATE. ESTIMATED GFR IS NOT APPLICABLE FOR DIALYSIS PATIENTS. CREATINE KINASE (CK), TOTAL AND [id number] 11:42:00 Test Item Value Reference Range Comments CREATINE KINASE TOTAL (BEAKER) (test fyvj=435) 138 U/L 29-200 CREATINE KINASE-MB (BEAKER) (test awyx=724) 4.2 ng/mL 0.0-6.6 CREATINE KINASE-MB INDEX (BEAKER) (test hqrf=150) 3.0 % CK-MB Reference Range:<6.7 Normal6.7-10.0 Borderline>10.0 [id number] 11:36:00 Test Item Value Reference Range Comments PHOSPHORUS (BEAKER) (test mqrz=821) 5.4 mg/dL 2.3-4.7 [id number] 11:36:00 Test Item Value Reference Range Comments MAGNESIUM (BEAKER) (test cxah=728) 2.3 mg/dL 1.6-2.6 RAD, ABDOMEN/KUB, 1 VIEW [id number] 11:33:00Reason for exam:->Nasogastric tube insertionShould this be performed at the bedside?->YesFINAL REPORT Abdomen one view INDICATION: Nasogastric tube insertion COMPARISON: None available IMPRESSION: NG tube extends to the gastric body. The imaged bowel gas pattern is nonspecific. There are degenerative spine changes and incidental vascular calcifications. The imaged chest is similar to 2017. Signed: Kenan Motteport Verified Date/Time: 05/20/2018 11: 33:02 Reading Location: [facility] Radiology Reading Room LACTIC ACID, VENOUS, WHOLE [id number] 11:32:00 Test Item Value Reference Range Comments LACTATE BLOOD VENOUS (2) (BEAKER) (test 2.1 mmol/L 0.5-2.2 sxxx=0099) Effective 04/02/2016: Units/Reference Range ChangeNew: 0.5-2.2 mmol/L Previous: 5 -20 mg/dLBLOOD GAS, [id number] 11:21:00 Test Item Value Reference Range Comments PH VENOUS (BEAKER) (test pqbt=392) 7.40 7.32-7.42 PCO2 VENOUS (BEAKER) (test buag=051) 45 mmHg 41-51 PO2 VENOUS (BEAKER) (test fnjo=657) 26 mmHg 25-40 O2 SATURATION VENOUS (BEAKER) (test xapj=190) 46.3 % 40.0-70.0 HCO3 VENOUS (BEAKER) (test xtdd=542) 27 mmol/L 21-29 BASE EXCESS VENOUS (BEAKER) (test oghk=656) 1.8 mmol/L -2.0-3.0 PATIENT TEMPERATURE (BEAKER) (test kqxk=8931) 36.9 C FIO2 (BEAKER) (test thoq=4449) 36.0 % BASIC METABOLIC [id number] 05:05:00 Test Item Value Reference Range Comments SODIUM (BEAKER) (test 140 meq/L 136-145 gzur=300) POTASSIUM (BEAKER) (test 3.9 meq/L 3.5-5.1 Specimen slightly sgyr=489) hemolyzed CHLORIDE (BEAKER) (test 105 meq/L 98-107 obwn=289) CO2 (BEAKER) (test 21 meq/L 22-29 xluf=564) BLOOD UREA NITROGEN 31 mg/dL 7-21 (BEAKER) (test tzrr=356) CREATININE (BEAKER) (test 1.63 mg/dL 0.57-1.25 Specimen slightly uwrv=120) hemolyzed GLUCOSE RANDOM (BEAKER) 124 mg/dL 70-105 (test lcwa=242) CALCIUM (BEAKER) (test 8.0 mg/dL 8.4-10.2 ivqx=199) EGFR (BEAKER) (test 40 mL/min/1.73 sq m ESTIMATED GFR IS NOT dzbt=5721) ACCURATE CREATININE CLEARANCE IN PREDICTING GLOMERULAR FILTRATION RATE. ESTIMATED GFR IS NOT APPLICABLE FOR DIALYSIS PATIENTS. CBC (HEMOGRAM ONLY)2018-05-20 04:44:00 Test Item Value Reference Range Comments WHITE BLOOD CELL COUNT (BEAKER) (test kkct=883) 16.5 K/ L 3.5-10.5 RED BLOOD CELL COUNT (BEAKER) (test mivs=318) 3.86 M/ L 4.63-6.08 HEMOGLOBIN (BEAKER) (test nxts=689) 10.6 GM/DL 13.7-17.5 HEMATOCRIT (BEAKER) (test igdl=537) 34.3 % 40.1-51.0 MEAN CORPUSCULAR VOLUME (BEAKER) (test lxkm=378) 88.9 fL 79.0-92.2 MEAN CORPUSCULAR HEMOGLOBIN (BEAKER) (test 27.5 pg 25.7-32.2 zioo=060) MEAN CORPUSCULAR HEMOGLOBIN CONC (BEAKER) (test 30.9 GM/DL 32.3-36.5 lqbw=444) RED CELL DISTRIBUTION WIDTH (BEAKER) (test 16.2 % 11.6-14.4 oyso=438) PLATELET COUNT (BEAKER) (test sedu=420) 103 K/CU MM 150-450 MEAN PLATELET VOLUME (BEAKER) (test viox=879) 11.2 fL 9.4-12.4 NUCLEATED RED BLOOD CELLS (BEAKER) (test 0 /100 WBC 0-0 bchf=150) URINALYSIS W/ [id number] 00:09:00 Test Item Value Reference Range Comments COLOR (BEAKER) (test wyqi=878) Yellow CLARITY (BEAKER) (test ncrf=118) Clear SPECIFIC GRAVITY UA (BEAKER) (test hkfu=445) 1.017 1.001-1.035 PH UA (BEAKER) (test vwzq=772) 5.0 5.0-8.0 PROTEIN UA (BEAKER) (test ffsx=485) Negative Negative GLUCOSE UA (BEAKER) (test xyla=096) Negative Negative KETONES UA (BEAKER) (test wazz=932) Negative Negative BILIRUBIN UA (BEAKER) (test eklw=847) Negative Negative BLOOD UA (BEAKER) (test lnls=879) Small Negative NITRITE UA (BEAKER) (test nwbm=640) Negative Negative LEUKOCYTE ESTERASE UA (BEAKER) (test znvu=045) Negative Negative UROBILINOGEN UA (BEAKER) (test vzwd=607) 0.2 mg/dL 0.2-1.0 RBC UA (BEAKER) (test qmhh=334) 12 /HPF WBC UA (BEAKER) (test dotz=172) 1 /HPF MUCUS (BEAKER) (test lsim=8580) Rare AMORPHOUS CRYSTALS (BEAKER) (test nron=4455) Occasional SOURCE(BEAKER) (test zqyr=8957) Urine, [place] RAD, CHEST, 1 VIEW, NON [id number] 21:46:00Reason for exam:->tavrShould this be performed at the bedside?->YesFINAL REPORT INDICATION: tavr COMPARISON: None. TECHNIQUE: Chest radiograph, single view, portable technique. 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 Intact median sternotomy wires noted. No pulmonary edema, aspiration, pneumothorax, or pleural effusion demonstrated. Signed: Vladislav Michael [facility] Verified Date/Time: 05/19/2018 21:46:23 Reading Location: [address] Consult Reading Room POCT-LACTIC ACID, [id number] 21:21:00 Test Item Value Reference Range Comments POC-LACTIC ACID, ARTERIAL 1.5 mmol/L 0.4-1.3 TESTED AT [address] (BEAKER) (test wpxj=1298) [place] [id number] POCT-BLOOD GASES, [id number] 21:21:00 Test Item Value Reference Range Comments TEMP, CELSIUS-POC (BEAKER) 37.1 (test ebpi=8081) FIO2-POC (BEAKER) (test 29 TESTED AT [address] ntlj=3150) [place] [address] PH, ARTERIAL-POC (BEAKER) 7.468 7.350-7.450 (test kfxy=2905) PCO2, ARTERIAL-POC (BEAKER) 34.4 mm Hg 35.0-45.0 (test rusy=6612) PO2, ARTERIAL-POC (BEAKER) 63.0 mm Hg 80.0-90.0 (test dwjr=3087) SO2, ARTERIAL-POC (BEAKER) 93.0 % 96.0-97.0 (test aodt=7549) HCO3, ARTERIAL-POC (BEAKER) 24.9 meq/L 21.0-29.0 (test asxy=8795) BASE EXCESS, ARTERIAL-POC 1.0 meq/L -2.0-3.0 (BEAKER) (test lqvj=9577) [id number] 21:21:00 Test Item Value Reference Range Comments POC-SODIUM (BEAKER) (test 137 meq/L 135-148 TESTED AT [address] dvlj=7421) [place] [address] [id number] 21:21:00 Test Item Value Reference Range Comments POC-POTASSIUM (BEAKER) (test 3.6 meq/L 3.6-5.5 TESTED AT [address] qjpb=3924) [place] [address] [id number] 21:21:00 Test Item Value Reference Range Comments POC-GLUCOSE (BEAKER) (test 152 mg/dL 70-110 TESTED AT [address] bkxt=4512) [place] [address] POCT-CALCIUM [id number] 21:21:00 Test Item Value Reference Range Comments POC-CALCIUM IONIZED (BEAKER) 1.19 mmol/L 1.12-1.27 TESTED AT [address] (test mwmt=6854) [place] [address] [id number] 21:21:00 Test Item Value Reference Range Comments POC-HEMATOCRIT (BEAKER) (test 32 % 40-50 TESTED AT [address] jrdq=1897) [place] [address] [id number] 21:21:00 Test Item Value Reference Range Comments POC-HEMOGLOBIN (BEAKER) 10.9 g/dL 13.0-16.8 TESTED AT [address] (test uele=9978) [place] [address]TESTED AT [place] [address] TROPONIN [id number] 20:56:00 Test Item Value Reference Range Comments TROPONIN I (BEAKER) (test mpme=059) 0.73 ng/mL 0.00-0.03 Troponin I (TnI) levels must be interpreted [...] failure, acidosis, acute neurological disease, and persistent tachyarrhythmia.CREATINE KINASE (CK), TOTAL AND [id number] 20:49:00 Test Item Value Reference Range Comments CREATINE KINASE TOTAL (BEAKER) (test uibf=730) 41 U/L 29-200 CREATINE KINASE-MB (BEAKER) (test bhxu=823) 3.5 ng/mL 0.0-6.6 CREATINE KINASE-MB INDEX (BEAKER) (test mnrk=502) 8.5 % CK-MB Reference Range:<6.7 Normal6.7-10.0 Borderline>10.0 AbnormalCT, BRAIN/STROKE [id number] 20:46:00Reason for exam:-> altered mental statusFINAL REPORT CT head without contrast 05/19/2018 8:43 PM CLINICAL HISTORY: Strokealtered mental status TECHNIQUE: Axial noncontrast CT images [...] is a small infarct in the posterior rightsuperior and middle frontal gyri. There is mild [...] cavities are well-aerated. The skull is unremarkable. IMPRESSION : Nointracranial hemorrhage or mass effect. Ischemic changes, which can be definitively characterized with MRI if clinically indicated. Findings were discussed with the stroke neurology housestaff on 05/19/2018 at 2040. Signed: Micheal [place] Verified Date/Time: 05/19/2018 20:46:09 Reading Location: [facility] Radiology Reading Room [facility] [id number] 20: 42:00 Test Item Value Reference Range Comments SODIUM (BEAKER) (test 138 meq/L 136-145 lcwt=173) POTASSIUM (BEAKER) (test 3.8 meq/L 3.5-5.1 zzsb=615) CHLORIDE (BEAKER) (test 100 meq/L 98-107 kcek=056) CO2 (BEAKER) (test 26 meq/L 22-29 isvl=856) BLOOD UREA NITROGEN 27 mg/dL 7-21 (BEAKER) (test vjiu=284) CREATININE (BEAKER) (test 1.41 mg/dL 0.57-1.25 zvqm=503) GLUCOSE RANDOM (BEAKER) 146 mg/dL 70-105 (test davs=634) CALCIUM (BEAKER) (test 8.7 mg/dL 8.4-10.2 zjec=620) EGFR (BEAKER) (test 48 mL/min/1.73 sq m ESTIMATED GFR IS NOT hoif=3993) ACCURATE CREATININE CLEARANCE IN PREDICTING GLOMERULAR FILTRATION RATE. ESTIMATED GFR IS NOT APPLICABLE FOR DIALYSIS PATIENTS. PT/[id number] 20:32:00 Test Item Value Reference Range Comments PROTIME (BEAKER) (test jnog=888) 14.2 seconds 11.7-14.7 INR (BEAKER) (test rucl=408) 1.1 <=5.9 PARTIAL THROMBOPLASTIN TIME (BEAKER) (test 31.4 seconds 22.5-36.0 vxgl=754) RECOMMENDED COUMADIN/WARFARIN INR THERAPY RANGESSTANDARD DOSE: 2.0 - 3.0 Includes: PROPHYLAXIS forvenous thrombosis, systemic embolization; TREATMENT for venous thrombosis and/or pulmonary embolus.HIGH RISK: Target INR is 2.5-3.5 for patients with mechanical heart valves.CBC W/PLT COUNT & AUTO [id number] 20:30:00 Test Item Value Reference Range Comments WHITE BLOOD CELL COUNT (BEAKER) (test qwbk=805) 12.5 K/ L 3.5-10.5 RED BLOOD CELL COUNT (BEAKER) (test mfmf=327) 3.77 M/ L 4.63-6.08 HEMOGLOBIN (BEAKER) (test xdmk=865) 10.4 GM/DL 13.7-17.5 HEMATOCRIT (BEAKER) (test wnnj=080) 34.1 % 40.1-51.0 MEAN CORPUSCULAR VOLUME (BEAKER) (test graf=662) 90.5 fL 79.0-92.2 MEAN CORPUSCULAR HEMOGLOBIN (BEAKER) (test 27.6 pg 25.7-32.2 kbzx=158) MEAN CORPUSCULAR HEMOGLOBIN CONC (BEAKER) (test 30.5 GM/DL 32.3-36.5 fsad=664) RED CELL DISTRIBUTION WIDTH (BEAKER) (test 16.4 % 11.6-14.4 mggp=243) PLATELET COUNT (BEAKER) (test dhgq=724) 116 K/CU MM 150-450 MEAN PLATELET VOLUME (BEAKER) (test zxah=569) 10.6 fL 9.4-12.4 NUCLEATED RED BLOOD CELLS (BEAKER) (test 0 /100 WBC 0-0 zdez=408) NEUTROPHILS RELATIVE PERCENT (BEAKER) (test 74 % ivys=265) LYMPHOCYTES RELATIVE PERCENT (BEAKER) (test 18 % qtwo=522) MONOCYTES RELATIVE PERCENT (BEAKER) (test 6 % qqsb=383) EOSINOPHILS RELATIVE PERCENT (BEAKER) (test 1 % iiej=273) BASOPHILS RELATIVE PERCENT (BEAKER) (test 0 % wmzq=021) NEUTROPHILS ABSOLUTE COUNT (BEAKER) (test 9.27 K/ L 1.78-5.38 tasl=335) LYMPHOCYTES ABSOLUTE COUNT (BEAKER) (test 2.24 K/ L 1.32-3.57 gvoz=555) MONOCYTES ABSOLUTE COUNT (BEAKER) (test 0.73 K/ L 0.30-0.82 mdlt=624) EOSINOPHILS ABSOLUTE COUNT (BEAKER) (test 0.13 K/ L 0.04-0.54 xlor=223) BASOPHILS ABSOLUTE COUNT (BEAKER) (test 0.03 K/ L 0.01-0.08 jwxs=881) IMMATURE GRANULOCYTES-RELATIVE PERCENT (BEAKER) 1 % 0-1 (test biag=6620) POCT-GLUCOSE [id number] 20:01:00 Test Item Value Reference Range Comments POC-GLUCOSE METER (BEAKER) 182 mg/dL 70-110 TESTED AT [facility] [address] [facility] (test fvcz=4021) [facility] [address] [id number] 09:06:00 Test Item Value Reference Range Comments ACTIVATED CLOTTING TIME 329 sec TESTED AT [facility] [address] [facility] (BEAKER) (test bjse=833) [facility] [address] B-TYPE NATRIURETIC FACTOR (BNP)2018-04-21 15:09:00 Test Item Value Reference Range Comments B-TYPE NATRIURETIC PEPTIDE (BEAKER) (test 785 pg/mL 0-100 godn=013) COMPREHENSIVE METABOLIC [id number] 15:02:00 Test Item Value Reference Range Comments TOTAL PROTEIN (BEAKER) 6.9 gm/dL 6.0-8.3 (test hghj=401) ALBUMIN (BEAKER) (test 4.0 g/dL 3.5-5.0 wuxf=2465) ALKALINE PHOSPHATASE 42 U/L 40-150 (BEAKER) (test ipgb=991) BILIRUBIN TOTAL (BEAKER) 0.5 mg/dL 0.2-1.2 (test ngrx=630) SODIUM (BEAKER) (test 135 meq/L 136-145 pzro=700) POTASSIUM (BEAKER) (test 4.3 meq/L 3.5-5.1 epoh=018) CHLORIDE (BEAKER) (test 99 meq/L 98-107 kdvj=878) CO2 (BEAKER) (test 25 meq/L 22-29 rysg=823) BLOOD UREA NITROGEN 31 mg/dL 7-21 (BEAKER) (test iycg=855) CREATININE (BEAKER) (test 1.39 mg/dL 0.57-1.25 elmy=020) GLUCOSE RANDOM (BEAKER) 194 mg/dL 70-105 (test vbtc=865) CALCIUM (BEAKER) (test 9.7 mg/dL 8.4-10.2 bqqz=675) AST (SGOT) (BEAKER) (test 12 U/L 5-34 rwwq=229) ALT (SGPT) (BEAKER) (test 15 U/L 6-55 kpyv=576) EGFR (BEAKER) (test 48 mL/min/1.73 sq m ESTIMATED GFR IS NOT acof=1887) ACCURATE CREATININE CLEARANCE IN PREDICTING GLOMERULAR FILTRATION RATE. ESTIMATED GFR IS NOT APPLICABLE FOR DIALYSIS PATIENTS. PROTHROMBIN [id number] 14:58:00 Test Item Value Reference Range Comments PROTIME (BEAKER) (test uifp=790) 12.8 seconds 11.7-14.7 INR (BEAKER) (test tssh=012) 1.0 <=5.9 RECOMMENDED COUMADIN/WARFARIN INR THERAPY RANGESSTANDARD DOSE: 2.0 - 3.0 Includes: PROPHYLAXIS forvenous thrombosis, systemic embolization; TREATMENT for venous thrombosis and/or pulmonary embolus.HIGH RISK: Target INR is 2.5-3.5 for patients with mechanical heart valves.CBC W/PLT COUNT & AUTO [id number] 14:45:00 Test Item Value Reference Range Comments WHITE BLOOD CELL COUNT (BEAKER) (test kuuc=739) 10.3 K/ L 3.5-10.5 RED BLOOD CELL COUNT (BEAKER) (test hddj=330) 4.35 M/ L 4.63-6.08 HEMOGLOBIN (BEAKER) (test bxqd=961) 11.9 GM/DL 13.7-17.5 HEMATOCRIT (BEAKER) (test sqkg=796) 37.6 % 40.1-51.0 MEAN CORPUSCULAR VOLUME (BEAKER) (test tzeb=892) 86.4 fL 79.0-92.2 MEAN CORPUSCULAR HEMOGLOBIN (BEAKER) (test 27.4 pg 25.7-32.2 caof=382) MEAN CORPUSCULAR HEMOGLOBIN CONC (BEAKER) (test 31.6 GM/DL 32.3-36.5 gxmh=865) RED CELL DISTRIBUTION WIDTH (BEAKER) (test 16.5 % 11.6-14.4 tgal=859) PLATELET COUNT (BEAKER) (test wawp=592) 158 K/CU MM 150-450 MEAN PLATELET VOLUME (BEAKER) (test gjos=626) 11.1 fL 9.4-12.4 NUCLEATED RED BLOOD CELLS (BEAKER) (test 0 /100 WBC 0-0 hpma=763) NEUTROPHILS RELATIVE PERCENT (BEAKER) (test 73 % cqsj=305) LYMPHOCYTES RELATIVE PERCENT (BEAKER) (test 19 % pasx=916) MONOCYTES RELATIVE PERCENT (BEAKER) (test 6 % tbqd=923) EOSINOPHILS RELATIVE PERCENT (BEAKER) (test 1 % nfgy=966) BASOPHILS RELATIVE PERCENT (BEAKER) (test 0 % xbdp=664) NEUTROPHILS ABSOLUTE COUNT (BEAKER) (test 7.54 K/ L 1.78-5.38 awag=059) LYMPHOCYTES ABSOLUTE COUNT (BEAKER) (test 1.96 K/ L 1.32-3.57 debe=098) MONOCYTES ABSOLUTE COUNT (BEAKER) (test 0.61 K/ L 0.30-0.82 ktyi=644) EOSINOPHILS ABSOLUTE COUNT (BEAKER) (test 0.09 K/ L 0.04-0.54 siqc=985) BASOPHILS ABSOLUTE COUNT (BEAKER) (test 0.03 K/ L 0.01-0.08 bjdk=585) IMMATURE GRANULOCYTES-RELATIVE PERCENT (BEAKER) 1 % 0-1 (test cvwv=2199) CT, CTA [id number] 12:54:00Addendum BeginsREPORT STATUS:A Addendum: I agree with the previously described non vascular findings.. Additionally, the lungs demonstrate fibrotic changes which are most pronounced in the bilateral bases. Biapical pleural-parenchymal scarring is present. Signed: Dejon BlandMDReport Verified Date/Time: 04/20/2018 12:54: 28 Reading Location: [place] [address] Angio Body Reading RoomAddendum EndsFINAL REPORT CT angiography of the thoracoabdominal aorta [...] before and during the dynamic passage of intravenouscontrast material. Multi-planar 3-D volume-rendering reconstruction was performed using an independent workstation interactively by the interpreting physician as well as the 3-D specialist for optimalvisualization of the thoracoabdominal aorta, the pelvic arteries as well as its proximal branches. Please refer to the contrast sheet scanned in the EPIC system for the amount and route of contrast given. This exam was performed according to our departmental dose-optimisation programme, which includesautomated exposure control, adjustment of the mA and/or [...] Agatston score is 1893. The location of aorticvalvular calcification can be seen in reformatted data set sent to PACS. Overall, there is no calcification seen in the aortic root and the ascending thoracic aorta. The transverse arch and descending thoracic aorta has at least moderate calcification identified. In the infrarenal abdominal aorta, moderate significant circumferential calcific atherosclerosis is seen. In addition, there is likely atherosclerotic ulceration identified, for example at image 372 , in the infrarenal abdominal aorta, rightward, representing [...] patent with no obstructive lesion identified. At leasttwo right renal arteries is identified. The accessory right renal artery is small and may have a stenosis identified. The main right renal artery has noncalcific atherosclerotic plaque identified proximally, with mild lesion identified; remainder of the right renal artery is patent with no obstructivelesion seen. The common iliac, external iliac, common femoral, and the visualised superficial femoral arteries are patent, with a mixture of calcific and noncalcific atherosclerosis identified. Refer to minimum diameter below for details. Dimensions that may be helpful for TAVR are as follows: No calcification is seen in the aortic root and ascending thoracic aorta. The major and minor aortic annulusdiameter measures 27.9 and 22.1 mm, respectively. The [...] valve); 430 to 546 mm2 (26 mm valve ); 540 to 683 mm2 (29 mm valve). For reference purpose, per [employer] brochure, recommendation are as follows: CT perimeter between 56.5-62.8 mm (23 mm valve); 62.8-72.3 mm (26 mm valve); 72.3-81.7 mm (29 mm valve); and 81.7- 94.2. mm (34 mm valve). Agatston Score is 1893. By planimetry, the aortic valve area is greater than 1 sq cm in 35% reconstruction and therefore likely inaccurate. Correlate with echocardiography. The sinus of Valsalva height to the takeoffof the coronary artery ostium, RCC (diastole): 14.7 mmThe sinus of Valsalva height to the takeoff ofthe coronary artery ostium, LCC (diastole): 13.8 mm The sinus of Valsalva diameter, RCC (diastole): 30.6 mmThe sinus of Valsalva diameter, LCC (diastole): 34.2 mmThe sinus of Valsalva diameter, NCC ( diastole): 32.9 mm At the sinotubular junction, the [...] measures 7.3 and 7.9 mm, respectively with mild-to- moderate tortuosity and no calcific atherosclerosis present. The minimum and the perpendicularleft femoral artery measures 6.2 and 8.7 mm, respectively with no tortuosity and mild calcific atherosclerosis present. More distally, image 628, the minimum diameter is 5.3 x 6.5 mm, in the inferiormargin of the left femoral head. Focal calcific [...] present. The minimum and the perpendicular right femoralartery measures 3.6 and 6.8 mm, respectively with [...] Overall, no discrete pulmonary nodule is appreciated. Inthe abdomen, the liver and spleen appears unremarkable. [...] seen abdomen and pelvis. No significant retroperitoneal adenopathyis identified. In the bony windows, no acute bony pathology is identified. Some degenerative changesare noted. CONCLUSIONS: 1. Patient has a diagnosis [...] above. 5. An addendum will be dictated bythe Data Engineer Radiologist regarding the nonvascular findings. Signed: Puneet Espinoza Verified Date/Time: 14:19:03 Reading Location: [place] [address], CTA, [id number] 12:54:00Addendum BeginsREPORT STATUS:A Addendum: I agree with the previously described non vascular findings.. Additionally, the lungs demonstrate fibrotic changes which are most pronounced in the bilateral bases. Biapical pleural-parenchymal scarring is present. Signed : Dejon BlandMDReport Verified Date/Time: 04/20/2018 12:54:28 Reading Location: [place] [address] Angio Body Reading RoomAddendum EndsFINAL REPORT CT angiography of the thoracoabdominal aorta and pelvic arteries , 19 Apr 2018 INDICATION: This is a 87 year old male with a diagnosis of aortic stenosis presents for preprocedure TAVR assessment. This study is performed in an attempt to avoid an invasive procedure. TECHNIQUE: Spiral acquisition before and during intravenous contrast administration using a Tae CT scanner. Images were obtained before and during the dynamic passage of intravenouscontrast material. Multi-planar 3-D volume-rendering reconstruction was performed using an independent workstation interactively by the interpreting physician as well as the 3-D specialist for optimalvisualization of the thoracoabdominal aorta, the pelvic arteries as well as its proximal branches. Please refer to the contrast sheet scanned in the EPIC system for the amount and route of contrast given. This exam was performed according to our departmental dose-optimisation programme, which includesautomated exposure control, adjustment of the mA and/or [...] Agatston score is 1893. The location of aorticvalvular calcification can be seen in reformatted data set sent to PACS. Overall, there is no calcification seen in the aortic root and the ascending thoracic aorta. The transverse arch and descending thoracic aorta has at least moderate calcification identified. In the infrarenal abdominal aorta, moderate significant circumferential calcific atherosclerosis is seen. In addition, there is likely atherosclerotic ulceration identified, for example at image 372 , in the infrarenal abdominal aorta, rightward, representing [...] patent with no obstructive lesion identified. At leasttwo right renal arteries is identified. The accessory right renal artery is small and may have a stenosis identified. The main right renal artery has noncalcific atherosclerotic plaque identified proximally, with mild lesion identified; remainder of the right renal artery is patent with no obstructivelesion seen. The common iliac, external iliac, common femoral, and the visualised superficial femoral arteries are patent, with a mixture of calcific and noncalcific atherosclerosis identified. Refer to minimum diameter below for details. Dimensions that may be helpful for TAVR are as follows: No calcification is seen in the aortic root and ascending thoracic aorta. The major and minor aortic annulusdiameter measures 27.9 and 22.1 mm, respectively. The aortic annulus perimeter measured 77 mm and the cross-sectional area measures 461 mm2. The aortic annulus diameter at the traditional LVOT and coronal LVOT measures 20.7 and 22.4 mm, respectively. For reference purpose, per [employer] S3 brochrand, recommendation are as follows: CT area between 273 to 345 mm2 (20 mm valve); 338 to 430 mm2 (23 mm valve); 430 to 546 mm2 (26 mm valve ); 540 to 683 mm2 (29 mm valve). For reference purpose, per [employer] brochure, recommendation are as follows: CT perimeter between 56.5-62.8 mm (23 mm valve); 62.8-72.3 mm (26 mm valve); 72.3-81.7 mm (29 mm valve); and 81.7- 94.2. mm (34 mm valve). Agatston Score is 1893. By planimetry, the aortic valve area is greater than 1 sq cm in 35% reconstruction and therefore likely inaccurate. Correlate with echocardiography. The sinus of Valsalva height to the takeoffof the coronary artery ostium, RCC (diastole): 14.7 mmThe sinus of Valsalva height to the takeoff ofthe coronary artery ostium, LCC (diastole): 13.8 mm The sinus of Valsalva diameter, RCC (diastole): 30.6 mmThe sinus of Valsalva diameter, LCC (diastole): 34.2 mmThe sinus of Valsalva diameter, NCC ( diastole): 32.9 mm At the sinotubular junction, the [...] measures 7.3 and 7.9 mm, respectively with mild-to- moderate tortuosity and no calcific atherosclerosis present. The minimum and the perpendicularleft femoral artery measures 6.2 and 8.7 mm, respectively with no tortuosity and mild calcific atherosclerosis present. More distally, image 628, the minimum diameter is 5.3 x 6.5 mm, in the inferiormargin of the left femoral head. Focal calcific [...] present. The minimum and the perpendicular right femoralartery measures 3.6 and 6.8 mm, respectively with [...] Overall, no discrete pulmonary nodule is appreciated. Inthe abdomen, the liver and spleen appears unremarkable. [...] seen abdomen and pelvis. No significant retroperitoneal adenopathyis identified. In the bony windows, no acute bony pathology is identified. Some degenerative changesare noted. CONCLUSIONS: 1. Patient has a diagnosis [...] above. 5. An addendum will be dictated bythe Data Engineer Radiologist regarding the nonvascular findings. Signed: Puneet Espinoza MDReport Verified Date/Time: 14:19:03 Reading Location: [place] [address] Cardiology MRI POCT- [id number] 09:37:00 Test Item Value Reference Range Comments POC-CREATININE (Avaamo) 1.3 mg/dL 0.6-1.3 TESTED AT [facility] [address] [place] [address] (test qvlo=1601) [facility] [address] POC-EGFR (Avaamo) (test 52 mL/min/1.73M2 ocjp=1546)
--- NOTE | 2018-07-11 14:03 | RAD REPORT ---
EXAM DESCRIPTION: CT - CTHCSPWOC - 07/11/2018 1:43 pm CLINICAL HISTORY: Fall, head injury COMPARISON: CT head and cervical December 2016 TECHNIQUE: Axial 5 mm thick images of the head were obtained. Axial 2 mm thick images of the cervic al spine were obtained with sagittal and coronal reconstruction images generated and reviewed. All CT scans are performed using dose optimization technique as appropriate and may include automated exposure control or mA/KV adjustment according to patient size. FINDINGS: No intracranial hemorrhage, mass, edema or acute intracranial finding. No suspicion for acute infarct ion. Prominent atrophy and chronic ischemic changes are present similar to the comparison. Dense toño rial tree calcifications are present. Mastoid air cells are clear. Chronic sinusitis changes are note d similar to comparison. No globe or orbit abnormality seen. Cervical body height and alignment are normal. C4-5, C5-6 and C6-7 disc space narrowing present. Post erior endplate spurring changes are present. Bony foraminal encroachment is present at C5-6. Carotid calcifications are present. No fracture or acute bony abnormality. Central canal detail is inherently limited. No paraspinal mass or hematoma. IMPRESSION: Prominent atrophy and chronic ischemic change similar to comparison. No acute intracrani al finding. Chronic sinusitis changes. Cervical spine degenerative change similar to comparison. No acute finding.
[2018-07-11] MEDS ORDERED: NA CHLORIDE 0.9% 500 ML ONE (14:15)
--- NOTE | 2018-07-11 14:39 | RAD REPORT ---
EXAM DESCRIPTION: RAD - Humerus Right - 07/11/2018 2:15 pm CLINICAL HISTORY: Fall, shoulder and arm pain COMPARISON: None. FINDINGS: No fracture is identified. There is no dislocation or periosteal reaction noted. Mild AC j oint degenerative changes are present. No suspicious soft tissue finding. IMPRESSION: Negative right humerus for acute or significant finding.
--- NOTE | 2018-07-11 14:40 | RAD REPORT ---
EXAM DESCRIPTION: RAD - Chest Single View - 07/11/2018 2:15 pm CLINICAL HISTORY: Fall, chest pain, right shoulder pain COMPARISON: February 13 chest film TECHNIQUE: AP portable chest image was obtained 1352 hours . FINDINGS: No pulmonary contusion, pneumothorax or acute lung parenchymal process. Patient has chroni c interstitial lung disease that is similar to comparison. Sternotomy wires are in place. Heart and v asculature are normal. No pneumothorax. No acute bone findings seen. Degenerative changes are present at both shoulder joints. No gross rib abnormality identifiable. No acute aortic findings suspected. IMPRESSION: Chronic interstitial lung disease similar to comparison. No acute findings seen.
--- NOTE | 2018-07-11 14:44 | RAD REPORT ---
EXAM DESCRIPTION: CT - Thorax Wo Brayden - 07/11/2018 2:33 pm CLINICAL HISTORY: Fall, chest pain, right shoulder pain, pain out of proportion to exam findings COMPARISON: CT imaging October 2017 TECHNIQUE: Axial 5 mm thick images of the chest were obtained without IV contrast. All CT scans are performed using dose optimization technique as appropriate and may include automated exposure control or mA/KV adjustment according to patient size. FINDINGS: No pulmonary contusion confirmed. There is no mass or consolidations seen. Scarring and at electasis changes are present. Pre-existing interstitial edema or infiltrate cannot be excluded. Pleu ral and parenchymal left basal opacities have not changed since October. No pleural thickening or pl eural effusion. No pneumothorax. No abnormal mediastinal or hilar masses or lymphadenopathy seen. No gross aortic or pulmonary artery finding suspected. Assessment is limited in the absence of IV contrast. Prominent aortic calcificati ons are present. Stent is in place at the root of the aorta. Dense Coronary artery calcifications are present. Sternotomy wires are in place. No chest wall mass or abnormal axillary lymphadenopathy. No displaced rib fracture. Non displaced rib fractures are not suspected. No compression fracture in the thoracic spine. Prominent degenerative c hanges are present. No acute finding at the partially imaged right shoulder girdle. Single gallstone is seen in a partially imaged gallbladder. IMPRESSION: Chronic pleural and parenchymal changes are present as detailed. No acute CT chest findi ng identifiable. Incidental note made of cholelithiasis.
[2018-07-11 15:05] LABS: Absolute Lymphocytes (CBC) 3.1 K/uL (0.7-4.9); Absolute Monocytes 1.5 K/uL (0.1-1.3); Basophils % 0.7 % (0-1.3); Eosinophils % 0.5 % (0-4.4); Hematocrit 30.4 % (39.6-49.0); Lymphocytes % 24.6 % (15.3-44.8); MCH 26.6 pg (27.0-35.0); MCV 81.5 fL (80-100); MPV 9.3 fL (7.6-11.3); Monocytes % 11.5 % (3.3-12.3); RBC Red Blood Cell Count 3.74 M/uL (4.33-5.43)
[2018-07-11 15:19] LABS: Protime INR 6.54
[2018-07-11] MEDS ORDERED: VITAMIN K (ADULT) 10 MG/ML ONE (15:34)
[2018-07-11 15:44] LABS: ALT/SGPT 13 U/L (12-78); AST/SGOT 16 U/L (15-37); Albumin 3.1 g/dL (3.4-5.0); Alkaline Phosphatase 71 U/L (45-117); BUN Blood Urea Nitrogen 18 mg/dL (7-18); Bicarbonate 29 mmol/L (21-32); Bilirubin Direct 0.1 mg/dL (0-0.2); Bilirubin Total 0.5 mg/dL (0.2-1.0); CKMB Creatine Kinase MB < 1.0 ng/mL (0.3-3.6); Creatine Phosphokinase 32 U/L (39-308); Glucose Level 149 mg/dL (74-106); Lipase 59 U/L (73-393); Magnesium 2.4 mg/dL (1.8-2.4); NT PRO-BNP 6391 pg/mL (<450); Potassium 4.1 mmol/L (3.5-5.1); Protein, Total 7.1 g/dL (6.4-8.2); Sodium Level 138 mmol/L (136-145)
[2018-07-11 17:04] LABS: Urine Bacteria NONE SEEN /HPF (NONE SEEN); Urine Culture Reflex Order NOT NEEDED
[2018-07-11] MEDS ORDERED: FUROSEMIDE 40 MG/4 ML VIAL ONE (17:11)
[2018-07-11 17:22] LABS: Urine Blood NEGATIVE (NEG); Urine Glucose NEGATIVE (NEG); Urine Protein TRACE (NEG); Urine Specific Gravity 1.015 (1.005-1.030)
--- NOTE | 2018-07-11 17:30 | ER ---
Nurse's Notes [facility] Name: Victor Hugo Damon Age: 87 yrs Sex: Male : 1930 Arrival Date: 07/11/2018 Time: 12:27 Bed 25 Private MD: John Stahl V Diagnosis: Supratherapeutic INR;Pulmonary edema;Dyspnea, unspecified;Weakness Presentation: 07/11 12:51 Presenting complaint: Child states: He fell Thursday night on his right shoulder and aj1 yesterday the pain started getting worse. When they came to visit him this morning he looked pale and was complaining of his shoulder and neck hurting. Denies hitting head during his fell. Denies syncope, denies vomiting. Transition of care: patient was not received from another setting of care. Onset of symptoms was July 09, 2018. Risk Assessment: Do you want to hurt yourself or someone else? Patient reports no desire to harm self or others. Initial Sepsis Screen: Does the patient meet any 2 criteria? No. Patient's initial sepsis screen is negative. Does the patient have a suspected source of infection? No. Patient's initial sepsis screen is negative. Care prior to arrival: None. 12:51 Method Of Arrival: Wheelchair aj1 12:51 Acuity: ESTHELA 3 aj1 13:00 Mechanism of Injury: Fall from standing position. Trauma event details: Injury occurred kr2 in the [facility], Injury occurred: at home. Injury occurred: July 08, 2018 Injury occurred at: 15:00. Triage Assessment: 12:57 General: Appears in no apparent distress. uncomfortable, Behavior is calm, cooperative, aj1 appropriate for age. Pain: Complains of pain in anterior aspect of right shoulder and posterior aspect of right shoulder Pain currently is 8 out of 10 on a pain scale. Neuro: Level of Consciousness is awake, alert, obeys commands. Cardiovascular: Patient's skin is warm and dry. Respiratory: Airway is patent Respiratory effort is even, unlabored, Respiratory pattern is regular, symmetrical. Derm: Skin is pink, warm \T\ dry. normal. Trauma Activation: Not Applicable Physician: ED Physician; Name: ; Notified At: ; Arrived At: Physician: General Surgeon; Name: ; Notified At: ; Arrived At: Physician: Radiology; Name: ; Notified At: ; Arrived At: Physician: Respiratory; Name: ; Notified At: ; Arrived At: Physician: Lab; Name: ; Notified At: ; Arrived At: Historical: - Allergies: 12:57 PENICILLINS; aj1 - Home Meds: 12:57 carvedilol 25 mg Oral tab 1 tab 2 times per day [Active]; clopidogrel 75 mg Oral tab 1 aj1 tab once daily [Active]; Myrbetriq 25 mg oral Tb24 1 tab once daily [Active]; nifedipine 30 mg Oral TbER 2 tabs once daily [Active]; prednisone 20 mg Oral tab 1 tab once daily [Active]; torsemide 10 mg oral tab 1 tab once daily [Active]; warfarin 5 mg Oral tab 1 tab once daily [Active]; bisacodyl 5 mg Oral TbEC 1 tab [Active]; losartan 50 mg Oral tab 1 tab once daily [Active]; potassium chloride 10 mEq Oral cpER 1 cap once daily [Active]; torsemide 10 mg Oral tab 1 tab once daily [Active]; - PMHx: 12:57 Hypertension; Atrial Fib; aj1 - PSHx: 12:57 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 - Social history:: Smoking status: Patient/guardian denies using tobacco. - Immunization history: Last tetanus immunization: unknown. - Ebola Screening: : Patient denies exposure to infectious person. - Hospitalizations: : No recent hospitalization is reported. Screenin:00 Abuse screen: Denies threats or abuse. Denies injuries from another. Nutritional kr2 screening: No deficits noted. Tuberculosis screening: No symptoms or risk factors identified. Fall Risk Fall in past 12 months (25 points). Primary Survey: 13:00 Breathing/Chest: Respiratory pattern: regular, Respiratory effort: spontaneous, kr2 unlabored, Breath sounds: diminished, Chest inspection: symmetrical rise and fall of the chest. Circulation: Cardiac rhythm: sinus rhythm. Disability Alert. 15:07 Reassessment Airway Airway Patent Breathing/Chest Respiratory pattern Regular kr2 Circulation Heart rhythm Sinus rhythm Disability Alert. Assessment: 13:15 General: Appears in no apparent distress. comfortable, well groomed, well developed, kr2 well nourished, Behavior is calm, cooperative, appropriate for age. Pain: Complains of pain in anterior aspect of right shoulder and posterior aspect of right shoulder Pain radiates to right arm Pain currently is 5 out of 10 on a pain scale. Quality of pain is described as aching, Is continuous, Alleviated by rest, Aggravated by increased activity, repositioning. Neuro: Level of Consciousness is awake, alert, obeys commands, Oriented to person, place, time, situation, Appropriate for age Drug Clerk are equal bilaterally Moves all extremities. Speech is slurred, Patient has a history of stroke during hospitalization for valve replacement in April. Family reports facial droop is not new. He has also had slurring of speech since April. Family states it has gotten worse over the last couple of days. Facial droop on right, Pupils are PERRLA, Intact. Cardiovascular: Capillary refill < 3 seconds in bilateral fingers Patient's skin is warm and dry. Respiratory: Airway is patent Respiratory effort is even, unlabored, Respiratory pattern is regular, symmetrical. GI: Abdomen is round non-distended, Bowel sounds present X 4 quads. : Denies inability to void. EENT: Oral mucosa is moist. Derm: Skin is fragile, is thin, with poor turgor Skin is pink, warm \T\ dry. Wound noted right arm Wound is a skin tear with steri strips in place. Resulted after fall on or about or Thursday as reported by family. Steri strips were applied by assisted living nurse. Musculoskeletal: Circulation, motion, and sensation intact. Range of motion: limited in right shoulder. 13:35 Reassessment: Patient in radiology at this time. kr2 14:30 Reassessment: Patient remains in radiology. kr2 15:30 Reassessment: Patient appears in no apparent distress at this time. Patient and/or kr2 family updated on plan of care and expected duration. Pain level reassessed. Patient is alert, oriented x 3, equal unlabored respirations, skin warm/dry/pink. Patient states feeling better. 16:30 Reassessment: Patient appears in no apparent distress at this time. Patient and/or kr2 family updated on plan of care and expected duration. Pain level reassessed. Patient is alert, oriented x 3, equal unlabored respirations, skin warm/dry/pink. Family remains at bedside. 17:30 Reassessment: Patient appears in no apparent distress at this time. Patient and/or kr2 family updated on plan of care and expected duration. Pain level reassessed. Patient is alert, oriented x 3, equal unlabored respirations, skin warm/dry/pink. Patient states feeling better. 18:31 Reassessment: Patient appears in no apparent distress at this time. Patient and/or kr2 family updated on plan of care and expected duration. Pain level reassessed. Patient is alert, oriented x 3, equal unlabored respirations, skin warm/dry/pink. Patient denies pain at this time. 20:08 Reassessment: Patient appears in no apparent distress at this time. Patient and/or kr2 family updated on plan of care and expected duration. Pain level reassessed. Patient is alert, oriented x 3, equal unlabored respirations, skin warm/dry/pink. Patient denies pain at this time. Vital Signs: 12:57 BP 125 / 61; Pulse 67; Resp 18; Temp 97.5(O); Pulse Ox 96% on R/A; Weight 90.72 kg (R); aj1 Pain 8/10; 15:00 BP 127 / 62; Pulse 75; Resp 17; Pulse Ox 98% on 2 lpm NC; kr2 16:00 BP 130 / 60; Pulse 75; Resp 18; Pulse Ox 98% on 2 lpm NC; kr2 17:20 BP 135 / 53; Pulse 74; Resp 16; Pulse Ox 100% on 2 lpm NC; kr2 18:31 BP 159 / 51; Pulse 73; Resp 17; Pulse Ox 98% on 2 lpm NC; kr2 20:00 BP 150 / 63; Pulse 74; Resp 17; Pulse Ox 98% on 2 lpm NC; kr2 Mikael Coma Score: 13:00 Eye Response: spontaneous(4). Verbal Response: oriented(5). Motor Response: obeys kr2 commands(6). Total: 15. Trauma Score (Adult): 13:00 Eye Response: spontaneous(1); Verbal Response: oriented(1); Motor Response: obeys kr2 commands(2); Systolic BP: > 89 mm Hg(4); Respiratory Rate: 10 to 29 per min(4); Mikael Score: 15; Trauma Score: 12 ED Course: 12:27 Patient arrived in ED. sb2 12:29 John Stahl MD is Private Physician. sb2 12:54 Triage completed. aj1 12:57 Arm band placed on Patient placed in an exam room. aj1 13:00 Thermoregulation: warm blanket given to patient. kr2 13:02 Nelia Hernandez, RN is Primary Nurse. kr2 13:05 Patient has correct armband on for positive identification. Bed in low position. Call kr2 light in reach. Side rails up X2. Adult w/ patient. desk monitor on. Pulse ox on. NIBP on. Door closed. Warm blanket given. Head of bed elevated. 13:05 Oxygen administration via nasal cannula \T\ 2L/min Response to oxygen therapy: symptoms kr2 improved. 13:07 Jaziel Lorenz MD is Attending Physician. rn 13:41 CT completed. Patient moved to CT via stretcher. Patient moved back from CT. cw1 13:43 CT Head C Spine In Process Unspecified. EDMS 14:15 XRAY Humerus RIGHT In Process Unspecified. EDMS 14:15 XRAY Chest (1 view) In Process Unspecified. EDMS 14:33 CT Chest Wo Con In Process Unspecified. EDMS 14:33 CT completed. Patient tolerated procedure well. Patient moved back from CT. bq 14:50 Inserted saline lock: 20 gauge in left antecubital area, using aseptic technique. Blood kr2 collected. 16:30 Cleaned of incontinence. kr2 16:30 Straight cath inserted, using sterile technique, Specimen obtained. 15 Fr Returned kr2 clear yellow urine. Patient tolerated well. 17:29 John Stahl MD is Hospitalizing Provider. rn 17:41 No provider procedures requiring assistance completed. kr2 20:07 Patient admitted, IV remains in place. kr2 Administered Medications: 14:54 Drug: NS 0.9% 500 ml Route: IV; Rate: bolus; Site: left antecubital; kr2 16:35 Follow up: Response: No adverse reaction; IV Status: Completed infusion kr2 15:35 Drug: Vitamin K1 10 mg Route: IM; Site: left deltoid; kr2 16:34 Follow up: Response: No adverse reaction kr2 17:19 Drug: Lasix 40 mg Route: IVP; Site: left antecubital; kr2 Point of Care Testing: Blood Glucose: 15:05 Blood Glucose: 150 mg/dL; kr2 Ranges: Intake: 20:07 PO: 0ml; Total: 0ml. kr2 Output: 20:07 Urine: 700ml (Voided); Total: 700ml. kr2 Outcome: 17:30 Decision to Hospitalize by Provider. rn 17:41 Patient's length of stay in the Emergency Department was greater than 2 hours. kr2 Patient's length of stay was extended due to staffing issues within the emergency department. 20:06 Admitted to Tele accompanied by tech, family with patient, via stretcher, room 405, kr2 with oxygen, with chart, Report called to Yanet 20:06 Condition: stable 20:06 Instructed on the need for admit, Demonstrated understanding of instructions. 20:09 Patient left the ED. kr2 Signatures: Dispatcher [employer] EDLauren Grant RN RN aj1 Nena Obrien Roman, MD MD rn Woodley, Crystal cw1 Nelia Hernandez RN RN kr2 Yadira Morales sb2 Corrections: (The following items were deleted from the chart) 15:08 15:05 Mikael Score=15, Trauma Score=12, kr2 kr2
--- NOTE | 2018-07-11 17:31 | EDPHYS ---
Physician Documentation [facility] Name: Victor Hugo Damon Age: 87 yrs Sex: Male : 1930 Arrival Date: 07/11/2018 Time: 12:27 Bed 25 Private MD: John Stahl V ED Physician Jaziel Lorenz HPI: 07/11 14:12 This 87 yrs old Male presents to ER via Wheelchair with complaints of Fall rn Injury - ARM. 14:12 Details of fall: The patient fell from an upright position, while standing. Onset: The rn symptoms/episode began/occurred 3 day(s) ago. Associated injuries: The patient sustained right arm/shoulder. Severity of symptoms: At their worst the symptoms were moderate, in the emergency department the symptoms are unchanged. The patient has not experienced similar symptoms in the past. Reports right shoulder pain from fall 3 days ago, family went to go visit him this AM, noticed pale, slightly confused, and slurred speech, speech has improved to his baseline following valve repair earlier this year, is on coumadin, does not recall events of fall, no fever, + mild cough and sob. No abd pain/vomiting/diarrhea. No chest pain. No focal weakness. Last known normal was last night.. Historical: - Allergies: 12:57 PENICILLINS; aj1 - Home Meds: 12:57 carvedilol 25 mg Oral tab 1 tab 2 times per day [Active]; clopidogrel 75 mg Oral tab 1 aj1 tab once daily [Active]; Myrbetriq 25 mg oral Tb24 1 tab once daily [Active]; nifedipine 30 mg Oral TbER 2 tabs once daily [Active]; prednisone 20 mg Oral tab 1 tab once daily [Active]; torsemide 10 mg oral tab 1 tab once daily [Active]; warfarin 5 mg Oral tab 1 tab once daily [Active]; bisacodyl 5 mg Oral TbEC 1 tab [Active]; losartan 50 mg Oral tab 1 tab once daily [Active]; potassium chloride 10 mEq Oral cpER 1 cap once daily [Active]; torsemide 10 mg Oral tab 1 tab once daily [Active]; - PMHx: 12:57 Hypertension; Atrial Fib; aj1 - PSHx: 12:57 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 - Social history:: Smoking status: Patient/guardian denies using tobacco. - Immunization history: Last tetanus immunization: unknown. - Ebola Screening: : Patient denies exposure to infectious person. - Hospitalizations: : No recent hospitalization is reported. ROS: 14:12 Constitutional: Negative for fever, chills, and weight loss, Eyes: Negative for injury, rn pain, redness, and discharge, Neck: Negative for injury, pain, and swelling, Cardiovascular: Negative for chest pain, palpitations, and edema, Respiratory: Negative for wheezing, and pleuritic chest pain, Abdomen/GI: Negative for abdominal pain, nausea, vomiting, diarrhea, and constipation, MS/Extremity: Negative for deformity Skin: Negative for injury, rash, and discoloration, Neuro: Negative for seizure Exam: 14:12 Constitutional: This is a well developed, well nourished patient who is awake, rn somnolent, slow to respond but making jokes Head/Face: Normocephalic, atraumatic. Neck: trachea midline, + right lateral neck tenderness without mass Cardiovascular: Regular rate and rhythm with a normal S1 and S2. No gallops, murmurs, or rubs. Normal PMI, no JVD. No pulse deficits. Respiratory: mild tachypnea, no retractions, no wheezing Abdomen/GI: Soft, non-tender. No distension or tympany. No guarding or rebound. No evidence of tenderness throughout. Back: No spinal tenderness. No costovertebral tenderness. + tenderness right scapular and posterior thorax MS/ Extremity: Pulses equal, no cyanosis. Neurovascular intact. Painful ROM RUE with tenderness proximal humerus. Equal circumference. Neuro: Awake, GCS 15, oriented to person, place, time, and situation. Cranial nerves II-XII grossly intact. Motor strength 5/5 in all extremities, RUE limited due to pain. Sensory grossly intact. + minimally slurred speech Vital Signs: 12:57 BP 125 / 61; Pulse 67; Resp 18; Temp 97.5(O); Pulse Ox 96% on R/A; Weight 90.72 kg (R); aj1 Pain 8/10; 15:00 BP 127 / 62; Pulse 75; Resp 17; Pulse Ox 98% on 2 lpm NC; kr2 16:00 BP 130 / 60; Pulse 75; Resp 18; Pulse Ox 98% on 2 lpm NC; kr2 17:20 BP 135 / 53; Pulse 74; Resp 16; Pulse Ox 100% on 2 lpm NC; kr2 18:31 BP 159 / 51; Pulse 73; Resp 17; Pulse Ox 98% on 2 lpm NC; kr2 20:00 BP 150 / 63; Pulse 74; Resp 17; Pulse Ox 98% on 2 lpm NC; kr2 Mikael Coma Score: 13:00 Eye Response: spontaneous(4). Verbal Response: oriented(5). Motor Response: obeys kr2 commands(6). Total: 15. Trauma Score (Adult): 13:00 Eye Response: spontaneous(1); Verbal Response: oriented(1); Motor Response: obeys kr2 commands(2); Systolic BP: > 89 mm Hg(4); Respiratory Rate: 10 to 29 per min(4); Mikael Score: 15; Trauma Score: 12 MDM: 13:07 Patient medically screened. rn 17:27 Differential diagnosis: closed head injury, contusion, fracture. Data reviewed: vital rn signs, nurses notes, lab test result(s), EKG, radiologic studies, CT scan, plain films, and as a result, I will admit patient. Counseling: I had a detailed discussion with the patient and/or guardian regarding: the historical points, exam findings, and any diagnostic results supporting the discharge/admit diagnosis, lab results, radiology results, the need for further work-up and treatment in the hospital. Response to treatment: the patient's symptoms have mildly improved after treatment, and as a result, I will admit patient. Admission orders: after a detailed discussion of the patient's condition and case, the admit orders are written by me. ED course: Pt without obvious extremity fracture, no rib fractures, + pulmonary edema with mild dyspnea, + supratherapeutic INR, recent falls, will admit for correction of INR as well as respiratory issues. Admitted to Dr. Stahl. . 07/11 13:21 Order name: Urine Microscopic Only; Complete Time: 17:17 rn 07/11 13:21 Order name: Basic Metabolic Panel; Complete Time: 15:51 rn 07/11 13:21 Order name: CBC with Diff; Complete Time: 15:17 rn 07/11 13:21 Order name: Ckmb; Complete Time: 15:51 rn 07/11 13:21 Order name: CPK; Complete Time: 15:51 rn 07/11 13:21 Order name: Hepatic Function; Complete Time: 15:51 rn 07/11 13:21 Order name: Lipase; Complete Time: 15:51 rn 07/11 13:21 Order name: Magnesium; Complete Time: 15:51 rn 08 13:21 Order name: Protime (+inr); Complete Time: 15:51 rn 07/11 13:21 Order name: Ptt, Activated; Complete Time: 15:51 rn 07/11 13:21 Order name: Troponin (emerg Dept Use Only); Complete Time: 15:51 rn 07/11 13:21 Order name: Urine Culture rn 07/11 13:21 Order name: Procalcitonin; Complete Time: 16:36 rn 07/11 13:21 Order name: Blood Culture Adult (2) rn 07/11 13:21 Order name: CT Head C Spine; Complete Time: 14:45 rn 07/11 13:21 Order name: EKG; Complete Time: 13:22 rn 07/11 13:21 Order name: Cardiac monitoring; Complete Time: 13:53 rn 07/11 13:21 Order name: EKG - Nurse/Tech; Complete Time: 15:02 rn 07/11 13:21 Order name: IV Saline Lock; Complete Time: 15:02 rn 12 13:21 Order name: Labs collected and sent; Complete Time: 13:53 rn 07/11 13:21 Order name: NPO; Complete Time: 13:53 rn 07/11 13:21 Order name: XRAY Humerus RIGHT; Complete Time: 14:45 rn 07/11 13:21 Order name: XRAY Chest (1 view); Complete Time: 14:45 rn 12 13:22 Order name: N-Terminal Pro-brain Natriuretic Peptide; Complete Time: 15:51 rn 12 14:18 Order name: CT Chest Wo Con; Complete Time: 14:45 rn 12 15:52 Order name: Glucose, Ancillary Testing; Complete Time: 16:36 EDMS 07/11 16:49 Order name: Urine Dipstick--Ancillary (enter results); Complete Time: 17:26 eb 07/11 13:21 Order name: O2 Per Protocol; Complete Time: 13:53 rn 07/11 13:21 Order name: O2 Sat Monitoring; Complete Time: 13:53 rn 07/11 13:21 Order name: Urine Dipstick-Ancillary (obtain specimen); Complete Time: 16:35 rn 07/11 13:21 Order name: Glucose Level; Complete Time: 15:02 rn Administered Medications: 14:54 Drug: NS 0.9% 500 ml Route: IV; Rate: bolus; Site: left antecubital; kr2 16:35 Follow up: Response: No adverse reaction; IV Status: Completed infusion kr2 15:35 Drug: Vitamin K1 10 mg Route: IM; Site: left deltoid; kr2 16:34 Follow up: Response: No adverse reaction kr2 17:19 Drug: Lasix 40 mg Route: IVP; Site: left antecubital; kr2 Point of Care Testing: Blood Glucose: 15:05 Blood Glucose: 150 mg/dL; kr2 Ranges: Critical Glucose Levels:Adult <50 mg/dl or >400 mg/dl <40 mg/dl or >180 mg/dl Disposition: 07/11/18 17:30 Hospitalization ordered by John Stahl for Inpatient Admission. Preliminary diagnosis are Supratherapeutic INR, Pulmonary edema, Dyspnea, unspecified, Weakness. - Bed requested for Telemetry/MedSurg (Inpatient). - Status is Inpatient Admission. kr2 - Condition is Stable. - Problem is new. - Symptoms have improved. UTI on Admission? No Signatures: Dispatcher [employer] EDMS Lauren Romero RN RN aj1 Jaziel Lorenz MD MD rn Reaves, Karey, RN RN kr2 Ester Simon Corrections: (The following items were deleted from the chart) 14:21 14:12 Constitutional: This is a well developed, well nourished patient who is awake, rn somnolent, slow to respond but making jokes Head/Face: Normocephalic, atraumatic. rn 19:33 17:30 Hospitalization Ordered by John Stahl MD for Inpatient Admission. Preliminary eb diagnosis is Supratherapeutic INR; Pulmonary edema; Dyspnea, unspecified; Weakness. Bed requested for Telemetry/MedSurg (Inpatient). Status is Inpatient Admission. Condition is Stable. Problem is new. Symptoms have improved. UTI on Admission? No. rn 20:09 19:33 07/11/2018 17:30 Hospitalization Ordered by John Stahl MD for Inpatient kr2 Admission. Preliminary diagnosis is Supratherapeutic INR; Pulmonary edema; Dyspnea, unspecified; Weakness. Bed requested for Telemetry/MedSurg (Inpatient). Status is Inpatient Admission. Condition is Stable. Problem is new. Symptoms have improved. UTI on Admission? No. eb
[2018-07-11] MEDS ORDERED: ACETAMINOPHEN 500 MG TAB PO PRN (20:00)
[2018-07-11] MEDS ORDERED: ONDANSETRON 4 MG/2 ML VIAL IV PRN (20:00)
[2018-07-11 20:30] VITALS: BMI 26.2
--- NOTE | 2018-07-11 21:02 | P.HP ---
Certification for Inpatient Patient admitted to: Observation With expected LOS: <2 Midnights Practitioner: I am a practitioner with admitting privileges, knowledge of patient current condition, hospital course, and medical plan of care. Services: Services provided to patient in accordance with Admission requirements found in Title 42 Section 412.3 of the Code of Federal Regulations Patient History Date of Service: 07/11/18 Reason for admission: FALLEN A FEW TIMES History of Present Illness: MR. SEXTON HAD AORTIC VALVE STENT FOR A FEW WEEKS AGO. HE HAS DONE WELL BUT LATELY HE HAS FALLEN A FEW TIMES. HE HIT HIS SHOULDER AND ELBOW . HE HAS NO FEVER, NASEA, VOMITNG. HE HAS NOT ATE WELL FOR A FEW DAYS. NO APPETITE. Allergies Penicillins Allergy (Verified 07/30/17 09:55) Itching/Hives/Rash Home Medications: Aspirin [Aspirin EC 81 MG] 81 mg PO DAILY 01/18/17 Carvedilol [Coreg*] 25 mg PO BID 01/18/17 predniSONE [Deltasone] 20 mg PO DAILY #100 tab 11/16/17 Amlodipine Besylate [Norvasc] 5 mg PO DAILY 03/15/18 Losartan Potassium [Cozaar] 50 mg PO DAILY 03/15/18 Multivitamin [Daily Multiple Vitamin] 1 each PO DAILY 03/15/18 Potassium Chloride [Klor-Con 10] 10 meq PO DAILY 03/15/18 Torsemide 10 mg PO DAILY 03/15/18 - Past Medical/Surgical History Diabetic: No -: htn -: triple bypass -: back sx x2 - Family History Father -: Hypertension - Social History Alcohol use: No CD- Drugs: No Caffeine use: No Review of Systems 10-point ROS is otherwise unremarkable General: Weakness, Malaise Physical Examination - Vital Signs Temperature: 98.2 F Blood Pressure: 125/59 Pulse: 76 Respirations: 20 Pulse Ox (%): 98 - Physical Exam General: Alert, Mild distress HEENT: Atraumatic, PERRLA, Mucous membr. moist/pink, EOMI, Sclerae nonicteric Neck: Supple, 2+ carotid pulse no bruit, No LAD, Without JVD or thyroid abnormality Respiratory: Clear to auscultation bilaterally, Normal air movement Cardiovascular: Regular rate/rhythm, Normal S1 S2 Gastrointestinal: Normal bowel sounds, No tenderness Musculoskeletal: Other (R SHOULDER MOBILITY IS PAINFUL AND R ELBOW ALSO.) Integumentary: Other (R ELBOW ECCHYMOSIS) Neurological: Normal gait, Normal speech, Normal strength at 5/5 x4 extr, Normal tone, Normal affect Lymphatics: No axilla or inguinal lymphadenopathy - Studies Laboratory Data (last 24 hrs) 07/11/18 14:50: PT 78.7 H, INR 6.54 H*, APTT 63.3 H 07/11/18 14:50: WBC 12.8 H, Hgb 9.9 L, Hct 30.4 L, Plt Count 181 07/11/18 14:50: Sodium 138, Potassium 4.1, BUN 18, Creatinine 1.40 H, Glucose 149 H, Magnesium 2.4, Total Bilirubin 0.5, AST 16, ALT 13, Alkaline Phosphatase 71, Lipase 59 L Assessment and Plan - Problems (Diagnosis) (1) Debility Current Visit: Yes Status: Chronic Plan: CHECK B12, TSH, TESTO LEVEL CONSULT PT HE HAS SEEN A NEUROLOGIST BEFORE HE HAS HAD POSTOPSTROKE . (2) Shoulder injury Current Visit: Yes Status: Acute Plan: X RAY DONE NEG CONSULT PT Qualifiers: Encounter type: initial encounter Laterality: left Qualified Code(s): S49.92XA - Unspecified injury of left shoulder and upper arm, initial encounter (3) Elbow injury Current Visit: Yes Status: Acute Plan: X RAY ORDER Qualifiers: Encounter type: initial encounter Laterality: right Qualified Code(s): S59.901A - Unspecified injury of right elbow, initial encounter (4) H/O stentless aortic valve replacement Current Visit: Yes Status: Acute Plan: DOING GREAT NO MUMUR NO SIGNS OF CHF OR INFECTION. (5) Frequent falls Onset Date: 01/20/17 Current Visit: No Status: Acute Plan: LATE EFFECT OF STROKE HE DOES HAV EGOOD POWER BILATERALLY COORDINATION FROM AGING MAY BE AN ISSUE. - Advance Directives Does patient have a Living Will: No Does patient have a Durable POA for Healthcare: No
[2018-07-12 04:12] LABS: Absolute Monocytes 1.3 K/uL (0.1-1.3); Absolute Neutrophil 5.6 K/uL (1.8-8.0); Basophils % 0.6 % (0-1.3); Hematocrit 29.6 % (39.6-49.0); Lymphocytes % 29.6 % (15.3-44.8); MCH 27.1 pg (27.0-35.0); MCV 80.7 fL (80-100); MPV 9.5 fL (7.6-11.3); Monocytes % 13.1 % (3.3-12.3); Protime INR 3.7; RBC Red Blood Cell Count 3.67 M/uL (4.33-5.43)
[2018-07-12 04:20] LABS: Potassium 3.7 mmol/L (3.5-5.1)
--- NOTE | 2018-07-12 05:42 | EKG ---
Test Date: 2018-07-11 Test Time: 15:01:34 Seam Rubbing Machine Operator: MEASUREMENT RESULTS: Intervals: Rate: 72 [place]: QRSD: 84 QT: 436 QTc: 477 [place]: P: [place]: QRS: 48 T: 88 INTERPRETIVE STATEMENTS: Atrial fibrillation ST & T wave abnormality, consider lateral ischemia Prolonged QT Abnormal ECG Compared to ECG 07/11/2018 14:59:43 no significant change from previous ECG Electronically Signed On 07-12-18 05:42:10 CDT by Too Vallejo
--- NOTE | 2018-07-12 05:42 | EKG ---
Test Date: 2018-07-11 Test Time: 14:59:43 Ward Supervisor: MEASUREMENT RESULTS: Intervals: Rate: 73 [place]: QRSD: 86 QT: 432 QTc: 475 [place]: P: [place]: QRS: 41 T: 67 INTERPRETIVE STATEMENTS: Atrial fibrillation Nonspecific ST and T wave abnormality Prolonged QT Abnormal ECG Compared to ECG 02/13/2018 19:47:34 Prolonged QT interval now present Sinus rhythm no longer present Sinus arrhythmia no longer present ST (T wave) deviation still present Electronically Signed On 07-12-18 05:42:22 CDT by Too Vallejo
--- NOTE | 2018-07-12 08:30 | EKG ---
Test Date: 2018-07-11 Test Time: 22:40:59 Secretary Bookkeeper: RT Bauer MEASUREMENT RESULTS: Intervals: Rate: 74 [place]: 146 QRSD: 90 QT: 402 QTc: 446 [place]: P: 28 [place]: 146 QRS: 12 T: 86 INTERPRETIVE STATEMENTS: Sinus rhythm with premature supraventricular complexes Nonspecific ST and T wave abnormality Abnormal ECG Compared to ECG 07/11/2018 15:01:34 Atrial premature complex(es) now present Atrial fibrillation no longer present Possible ischemia no longer present Prolonged QT interval no longer present ST (T wave) deviation still present Electronically Signed On 07-12-18 08:29:43 CDT by Too Vallejo
[2018-07-12] MEDS ORDERED: HOME MED 1 EA UNK (Mirabegron [Myrbetriq] 1 TAB) PO SCH (09:00)
[2018-07-12] MEDS ORDERED: predniSONE 5 MG TAB PO SCH (09:00)
[2018-07-12] MEDS ORDERED: TORSEMIDE 20 MG TAB PO SCH (09:00)
[2018-07-12] MEDS: POLYETHYL GLY 3350 17 GM/DOSE PO SCH (09:57)
[2018-07-12] MEDS: FUROSEMIDE 20 MG/ 2ML VIAL IV SCH ×2 (09:59→17:27)
[2018-07-12] MEDS: CLOPIDOGREL 75 MG TABLET PO SCH (10:00)
[2018-07-12] MEDS: NIFEDIPINE XL 30 MG TABLET PO SCH ×2 (10:00→22:00)
[2018-07-12] MEDS: CARVEDILOL 25 MG TAB PO SCH ×2 (10:00→20:42)
[2018-07-12] MEDS ORDERED: GUAIFENESIN/DM 5 ML UCUP PO PRN (16:51)
--- NOTE | 2018-07-12 17:58 | ECHO ---
HEIGHT: 6 ft 0 in WEIGHT: 193 lb 11.2 oz DATE OF STUDY: 07/12/[address]: 2-DIMENSIONAL: YES M.MODE: YES DOPPLER: YES COLOR FLOW: YES TDS: NO PORTABLE: NO DEFINITY: NO BUBBLE STUDY: NO DIAGNOSIS: WEAKNESS, POST OP AORTIC VALVE STENT CARDIAC HISTORY: CATHERIZATION: YES SURGERY: NO PROSTHETIC VALVE: YES PACEMAKER: NO MEASUREMENTS (cm) DIASTOLIC (NORMALS) SYSTOLIC (NORMALS) IVSd 1.2 (0.6-1.2) LA Diam 4.2 (1.9-4.0) LVEF 60% LVIDd 5.4 (3.5-5.7) LVIDs 3.1 (2.0-3.5) %FS 42% LVPWd 1.2 (0.6-1.2) Ao Diam 2.7 (2.0-3.7) 2 DIMENSIONAL ASSESSMENT: RIGHT ATRIUM: NORMAL LEFT ATRIUM: DILATED RIGHT VENTRICLE: NORMAL LEFT VENTRICLE: LEFT VENTRICULAR HYPERTROPHY TRICUSPID VALVE: NORMAL MITRAL VALVE: MITRAL ANNULAR CALCIFICATION PULMONIC VALVE: NORMAL AORTIC VALVE: BIOPROSTHETIC VALVE PERICARDIAL EFFUSION: NONE AORTIC ROOT: NORMAL LEFT VENTRICULAR WALL MOTION: NORMAL DOPPLER/COLOR FLOW: NO AORTIC STENOSIS OR REGURGITATION. IMPAIRED LEFT VENTRICULAR RELAXATION. COMMENTS: NORMAL LEFT VENTRICULAR EJECTION FRACTION. LEFT VENTRICULAR HYPERTROPHY. DILATE LEFT ATRIUM. BIOPROSTHETIC AORTIC VALVE WITH NORMAL DOPPLER. MITRAL ANNULAR CALCIFICATION. IMPAIRED LEFT VENTRICULAR RELAXATION. TECHNOLOGIST: WISAM ROLON [facility]
--- NOTE | 2018-07-12 18:14 | P.PN ---
Subjective Date of Service: 07/12/18 Chief Complaint: FALLEN A FEW TIMES Subjective: Improving (COUGH TODAY, PATIENT REPORTED LATER) Review of Systems 10-point ROS is otherwise unremarkable Physical Examination - Vital Signs Temperature: 97.3 F Blood Pressure: 115/58 Pulse: 77 Respirations: 19 Pulse Ox (%): 95 - Physical Exam General: Alert, In no apparent distress HEENT: Atraumatic, PERRLA, EOMI Neck: Supple, JVD not distended Respiratory: Clear to auscultation bilaterally, Normal air movement Cardiovascular: Regular rate/rhythm, Normal S1 S2 Gastrointestinal: Normal bowel sounds, No tenderness Musculoskeletal: No tenderness Integumentary: No rashes Neurological: Normal speech, Normal tone, Normal affect Lymphatics: No axilla or inguinal lymphadenopathy - Studies Medications List Reviewed: Yes Assessment And Plan - Current Problems (Diagnosis) (1) Debility Onset Date: 07/12/18 Current Visit: Yes Status: Chronic Plan: CHECK B12, TSH, TESTO LEVEL CONSULT PT HE HAS SEEN A NEUROLOGIST BEFORE HE HAS HAD POSTOPSTROKE . NEEDS TO WALK BEFORE DC PT CONSULT (2) Shoulder injury Onset Date: 07/12/18 Current Visit: Yes Status: Acute Plan: X RAY DONE NEG CONSULT PT Qualifiers: Encounter type: initial encounter Laterality: left Qualified Code(s): S49.92XA - Unspecified injury of left shoulder and upper arm, initial encounter (3) Elbow injury Onset Date: 07/12/18 Current Visit: Yes Status: Acute Plan: X RAY ORDER Qualifiers: Encounter type: initial encounter Laterality: right Qualified Code(s): S59.901A - Unspecified injury of right elbow, initial encounter (4) H/O stentless aortic valve replacement Onset Date: 07/12/18 Current Visit: Yes Status: Acute Plan: DOING GREAT NO MUMUR NO SIGNS OF CHF OR INFECTION. ECHO LOOKS GREAT NORMAL EF (5) Frequent falls Onset Date: 07/12/18 Current Visit: Yes Status: Acute Plan: LATE EFFECT OF STROKE HE DOES HAV EGOOD POWER BILATERALLY COORDINATION FROM AGING MAY BE AN ISSUE.
[2018-07-12] MEDS: HYDROCORTISONE SUC 100 MG INJ IV SCH (22:00)
[2018-07-12 22:06] LABS: Protime INR 1.79
[2018-07-13] MEDS: HYDROCORTISONE SUC 100 MG INJ IV SCH ×2 (03:31→09:53)
[2018-07-13 05:58] LABS: Absolute Lymphocytes (CBC) 1.7 K/uL (0.7-4.9); Absolute Monocytes 0.6 K/uL (0.1-1.3); Absolute Neutrophil 6.9 K/uL (1.8-8.0); Basophils % 0.3 % (0-1.3); Eosinophils % 0.2 % (0-4.4); Hematocrit 29.6 % (39.6-49.0); Lymphocytes % 18.4 % (15.3-44.8); MCH 27.2 pg (27.0-35.0); MCV 80.6 fL (80-100); MPV 9.6 fL (7.6-11.3); Monocytes % 6.2 % (3.3-12.3); RBC Red Blood Cell Count 3.68 M/uL (4.33-5.43)
[2018-07-13 06:07] LABS: Potassium 3.8 mmol/L (3.5-5.1)
[2018-07-13 06:28] LABS: Protime INR 1.44
[2018-07-13] MEDS ORDERED: WARFARIN SODIUM 5 MG TAB PO SCH (09:00)
[2018-07-13] MEDS ORDERED: MIRABEGRON 25 MG PO SCH (09:00)
[2018-07-13] MEDS: FUROSEMIDE 20 MG/ 2ML VIAL IV SCH (09:53)
[2018-07-13] MEDS: CARVEDILOL 25 MG TAB PO SCH (09:53)
[2018-07-13] MEDS: CLOPIDOGREL 75 MG TABLET PO SCH (09:53)
[2018-07-13] MEDS: POLYETHYL GLY 3350 17 GM/DOSE PO SCH (09:53)
[2018-07-13] MEDS: NIFEDIPINE XL 30 MG TABLET PO SCH (09:54)
[2018-07-13] MEDS ORDERED: WATER FOR INJ,STERILE 10 ML ONE (10:15)
[2018-07-13 11:14] VITALS: O2SAT 96
[2018-07-13 11:54] VITALS: BP 118/47; TEMP 97.2
--- NOTE | 2018-07-13 12:56 | P.PN ---
Subjective Date of Service: 07/13/18 Chief Complaint: FALLEN A FEW TIMES Subjective: Improving MR CARLIE FEELS A LOT BETTER. HE IS ABLE TO [place] FEW STEPS. WE RECOMMEND NH BUT HE REFUSES TO GO TO ONE. HE WILL CONTINUE PT WITH HH. I FIND HIM TO HAVE PMR RELATED SYMPTOMS, WITH HIGH SED RATE. I SEE NO SIGNS OF INFECTION, CHF, CVA ETC. HE IS STABLE TO GO HOME. HIS INR IS WATCHED BY DR LOPEZ AND I ASK HOME HEALTH TO CONTINUE TO SEND REPORTS TO HIM. HE IS BACK ON [place] NOW. Physical Examination - Vital Signs Temperature: 97.2 F Blood Pressure: 118/47 Pulse: 70 Respirations: 18 Pulse Ox (%): 96 - Studies Microbiology Data (last 24 hrs): 07/11/18 16:30 Clean Catch Urine [place] Count - Final 07/11/18 16:30 Clean Catch Urine - Final Medications List Reviewed: Yes Assessment And Plan - Current Problems (Diagnosis) (1) Debility Onset Date: 07/12/18 Current Visit: Yes Status: Chronic Plan: CHECK B12, TSH, TESTO LEVEL CONSULT PT HE HAS SEEN A NEUROLOGIST BEFORE HE HAS HAD POSTOPSTROKE . NEEDS TO WALK BEFORE DC PT CONSULT (2) Shoulder injury Onset Date: 07/12/18 Current Visit: Yes Status: Acute Plan: X RAY DONE NEG CONSULT PT Qualifiers: Encounter type: initial encounter Laterality: left Qualified Code(s): S49.92XA - Unspecified injury of left shoulder and upper arm, initial encounter (3) Elbow injury Onset Date: 07/12/18 Current Visit: Yes Status: Acute Plan: X RAY ORDER Qualifiers: Encounter type: initial encounter Laterality: right Qualified Code(s): S59.901A - Unspecified injury of right elbow, initial encounter (4) H/O stentless aortic valve replacement Onset Date: 07/12/18 Current Visit: Yes Status: Acute Plan: DOING GREAT NO MUMUR NO SIGNS OF CHF OR INFECTION. ECHO LOOKS GREAT NORMAL EF (5) Frequent falls Onset Date: 07/12/18 Current Visit: Yes Status: Acute Plan: LATE EFFECT OF STROKE HE DOES HAV EGOOD POWER BILATERALLY COORDINATION FROM AGING MAY BE AN ISSUE.
[2018-07-13] MEDS ORDERED: ENOXAPARIN 80 MG/0.8 ML SQ SCH (17:00)
== END 2018-07-13 15:38 | disposition home health service (06) ==
LOC: ER 12:24 → INTOOBSV 18:10 → ERHOLD 18:10 → 4TH 19:55
PROVIDERS: ADMIT Internal Medicine; ATTEND Internal Medicine
DX: R53.81 Other malaise (principal); S49.92XA Unspecified injury of left shoulder and upper arm, initial encounter; Z95.2 Presence of prosthetic heart valve; W18.30XA Fall on same level, unspecified, initial encounter; S59.901A Unspecified injury of right elbow, initial encounter; M35.3 Polymyalgia rheumatica; I69.398 Other sequelae of cerebral infarction; I10 Essential (primary) hypertension; Z95.1 Presence of aortocoronary bypass graft; I48.91 Unspecified atrial fibrillation; R79.1 Abnormal coagulation profile; Z79.01 Long term (current) use of anticoagulants; Y92.099 Unspecified place in other non-institutional residence as the place of occurrence of the external cause; Z79.52 Long term (current) use of systemic steroids; Z79.02 Long term (current) use of antithrombotics/antiplatelets; Z79.82 Long term (current) use of aspirin; Z88.0 Allergy status to penicillin
CPT/HCPCS: 36415 ×3; 51702; 70450; 71045; 71250; 72125; 73060; 80048 ×3; 80076; 82550; 82553; 82607; 82962; 83690; 83735; 83880; 84145; 84403; 84443; 84484; 85025 ×3; 85610 ×4; 85652; 85730; 87040 ×2; 87088; 93005 ×3; 93306; 96361; 96372; 96374; 97163; 99285; G0378 ×2; J1650; J1720 ×3; J1940 ×3; J3430; 81003; 81015; 87086; J7512

== ENCOUNTER 2018-10-19 11:17 | Emergency (ER) | payer OTHER ==
--- OUTSIDE RECORDS SUMMARY | 2018-10-19 11:21 | XMS REPORT | Clinical Summary ---
:1930 Author Organization [facility] Address [address] [place] [address] Care Team Providers Name Role Phone Pcp, No Primary Care Provider Unavailable Allergies Active Allergy Reactions Severity Noted Date Comments Penicillins Swelling 04/19/2018 Medications Medication Sig Dispensed Refills Start Date End Date Status carvedilol (COREG) 25 mg 2 (two) 0 02/08/2018 Active 25 MG times daily tabletIndications: with breakfast Severe aortic and dinner . stenosis torsemide (DEMADEX) 10 mg daily . 0 02/26/2018 Active 10 MG tabletIndications: Severe aortic stenosis VIT A/VIT C/VIT Take 1 capsule 0 Active E/ZINC/COPPER by mouth 2 (OCUVITE (two) [...] total) by 9 mouth every other day. losartan (COZAAR) 50 50 mg daily . 0 03/16/2018 Discontinued MG 8 tabletIndications: Severe aortic stenosis potassium chloride 10 mEq daily . 0 02/08/2018 Discontinued (KLOR-CON) 10 MEQ CR 8 tabletIndications: Severe aortic stenosis amLODIPine (NORVASC) 5 mg daily . 0 03/16/2018 Discontinued 5 MG 8 tabletIndications: Severe aortic stenosis predniSONE 20 mg daily . 0 02/22/2018 Discontinued (DELTASONE) 20 MG 8 tabletIndications: Severe aortic stenosis aspirin 81 MG EC Take 81 mg by 0 Discontinued tabletIndications: mouth daily. 8 Severe aortic stenosis acetylcysteine (NAC) Take by mouth. 0 Discontinued 600 mg Cap 8 QUEtiapine Take 0.5 30 tablet 0 05/29/2018 (SEROQUEL) 25 MG tablets (12.5 8 tablet mg total) by mouth nightly for 30 days. predniSONE Take 1.5 7 tablet 0 05/29/2018 (DELTASONE) 5 MG tablets (7.5 mg 8 tablet total) by mouth daily for 7 days. predniSONE Take 1 tablet 30 tablet 0 06/06/2018 (DELTASONE) 5 MG (5 mg total) by 8 tablet mouth daily for 60 days. Active Problems Problem Noted Date Atrial fibrillation, transient 05/29/2018 Urinary incontinence 05/29/2018 Altered mental status, unspecified 05/20/2018 Chronic diastolic CHF (congestive heart failure), NYHA class 3 05/19/2018 Frailty 05/19/2018 Advanced age 0605/19/2018 Hyperlipidemia 04/28/2018 PVD (peripheral vascular disease) 04/28/2018 CKD (chronic kidney disease) 04/28/2018 Severe aortic stenosis Coronary artery disease Hypertension Carotid arterial disease Encounters Date Type Specialty Care Team Description 05/19/2018 Surgery Cristobal Moreno TAVR / [facility] - MD Nelson PROC ONLY 05/19/2018 Anesthesia Event Johnson Peralta MD 05/19/2018 - Hospital Encounter Cardiology Cristobal Moreno Advanced age; 05/30/2018 MD Nelson Severe aortic stenosis 05/19/2018 Orders Only General Internal Medicine 04/21/2018 Hospital Encounter Cristobal Moreno MD 04/21/2018 Office Visit Cardiology Joseph Tsai Hyperlipidemia, unspecified hyperlipidemia type; MD Barrett PVD (peripheral vascular disease) ([facility]); Stage 2 chronic kidney disease 04/19/2018 Office Visit Cardiology Cipriano, Severe aortic stenosis; Sudhir Claire, Coronary artery disease involving [place] coronary artery of [place] heart without angina pectoris; Essential hypertension; Carotid artery disease, unspecified laterality ([facility]) 04/19/2018 Hospital Encounter Radiology Cristobal Moreno Aortic valve stenosisNelson MD etiology of cardiac valve disease unspecified 04/19/2018 Hospital Encounter Radiology Cristobal Moreno Aortic valve stenosisNelson MD etiology of cardiac valve disease unspecified 04/15/2018 Outside Orders Central Scheduling Cristobal Moreno Aortic valve stenosisNelson MD etiology of cardiac valve disease unspecified (Primary Dx) after 10/18/2017 Family History Medical History Relation Name Comments Heart disease Brother Heart disease Father Cancer Mother Relation Name Status Comments Brother Father Mother Social History Tobacco Use Types Packs/Day Years Used Date Former Smoker Cigarettes 1.5 32 Quit: 01/28/1979 Smokeless Tobacco: Never Used Alcohol Use Drinks/Week oz/Week Comments No Sex Assigned at Date Recorded Not on file Job Start Date Occupation Industry Not on file Not on file Not on file Travel History Travel Start Travel End No recent travel history available. Last Filed Vital Signs Vital Sign Reading [...] INFLUENZA VACCINE 08/30/2018 Implants Implanted Type Area Risk Mgr Device Shelf Model / Identifier Expiration Date Serial / Lot Valve Heart Payton 3 26mm [id number] - [id number] Valves PASTRANA LIFESCI [id number] / Implanted: Qty: 1 on 05/19/2018 by Cristobal Moreno MD [id number] / Procedures Procedure Name Priority Date/Time Associated Comments Diagnosis RHYTHM STRIP - SCAN 06/01/2018 8:10 AM CDT POCT-GLUCOSE METER Routine 05/30/2018 8:21 Results for this AM CDT procedure are in the results section. POCT-GLUCOSE METER Routine 05/30/2018 7:58 Results for this AM CDT procedure are in the results section. CBC (HEMOGRAM ONLY) Routine 05/30/2018 4:31 Results for this AM CDT procedure are in the results section. BASIC METABOLIC PANEL Routine 05/30/2018 4:31 Results for this (7) AM CDT procedure are in the results section. PROTHROMBIN TIME/INR Routine 05/30/2018 4:31 Results for this AM CDT procedure are in the results section. POCT-GLUCOSE METER Routine 05/29/2018 9:33 Results for this PM CDT procedure are in the results section. POCT-GLUCOSE METER Routine 05/29/2018 4:44 Results for this PM CDT procedure are in the results section. POCT-GLUCOSE METER Routine 05/29/2018 12:16 Results for this PM CDT procedure are in the results section. POCT-GLUCOSE METER Routine 05/29/2018 8:35 Results for this AM CDT procedure are in the results section. PROTHROMBIN TIME/INR Routine 05/29/2018 5:26 Results for this AM CDT procedure are in the results section. POCT-GLUCOSE METER Routine 05/28/2018 9:28 Results for this PM CDT procedure are in the results section. POCT-GLUCOSE METER Routine 05/28/2018 11:51 Results for this AM CDT procedure are in the results section. POCT-GLUCOSE METER Routine 05/28/2018 7:52 Results for this AM CDT procedure are in the results section. PROTHROMBIN TIME/INR Routine 05/28/2018 5:53 Results for this AM CDT procedure are in the results section. MAGNESIUM Routine 05/28/2018 5:53 Results for this AM CDT procedure are in the results section. POCT-GLUCOSE METER Routine 05/27/2018 9:07 Results for this PM CDT procedure are in the results section. CBC (HEMOGRAM ONLY) Routine 05/27/2018 8:41 Results for this PM CDT procedure are in the results section. BASIC METABOLIC PANEL Routine 05/27/2018 8:41 Results for this (7) PM CDT procedure are in the results section. POCT-GLUCOSE METER Routine 05/27/2018 4:59 Results for this PM CDT procedure are in the results section. POCT-GLUCOSE METER Routine 05/27/2018 11:36 Results for this AM CDT procedure are in the results section. POCT-GLUCOSE METER Routine 05/27/2018 7:45 Results for this AM CDT procedure are in the results section. PROTHROMBIN TIME/INR Routine 05/27/2018 5:32 Results for this AM CDT procedure are in the results section. MAGNESIUM Routine 05/27/2018 5:32 Results for this AM CDT procedure are in the results section. POCT-GLUCOSE METER Routine 05/26/2018 8:47 Results for this PM CDT procedure are in the results section. POCT-GLUCOSE METER Routine 05/26/2018 5:31 Results for this PM CDT procedure are in the results section. TRANSFUSE Routine 05/26/2018 1:11 LEUKO-REDUCED RED PM CDT BLOOD CELLS POCT-GLUCOSE METER Routine 05/26/2018 11:02 Results for this AM CDT procedure are in the results section. POCT-GLUCOSE METER Routine 05/26/2018 8:37 Results for this AM CDT procedure are in the results section. CBC W/PLT COUNT & STAT 05/26/2018 6:27 Results for this AUTO DIFFERENTIAL AM CDT procedure are in the results section. CBC W/PLT COUNT & STAT 05/26/2018 6:27 Results for this AUTO DIFFERENTIAL AM CDT procedure are in the results section. PROTHROMBIN TIME/INR Routine 05/26/2018 6:27 Results for this AM CDT procedure are in the results section. MAGNESIUM Routine 05/26/2018 6:27 Results for this AM CDT procedure are in the results section. POCT-GLUCOSE METER Routine 05/25/2018 10:03 Results for this PM CDT procedure are in the results section. CBC (HEMOGRAM ONLY) Routine 05/25/2018 9:25 Results for this PM CDT procedure are in the results section. BASIC METABOLIC PANEL Routine 05/25/2018 9:25 Results for this (7) PM CDT procedure are in the results section. CT BRAIN WITHOUT IV STAT 05/25/2018 7:04 Results for this CONTRAST PM CDT procedure are in the results section. TRANSFUSION SERVICE 05/25/2018 6:00 REPORT - SCAN PM CDT POCT-GLUCOSE METER Routine 05/25/2018 5:08 Results for this PM CDT procedure are in the results section. POCT-GLUCOSE METER Routine 05/25/2018 11:26 Results for this AM CDT procedure are in the results section. POCT-GLUCOSE METER Routine 05/25/2018 8:22 Results for this AM CDT procedure are in the results section. BASIC METABOLIC PANEL Routine 05/25/2018 4:46 Results for this (7) AM CDT procedure are in the results section. PROTHROMBIN TIME/INR Routine 05/25/2018 4:46 Results for this AM CDT procedure are in the results section. MAGNESIUM Routine 05/25/2018 4:46 Results for this AM CDT procedure are in the results section. PREPARE LEUKO-REDUCED Routine 05/24/2018 11:54 Results for this RBC PM CDT procedure are in the results section. POCT-GLUCOSE METER Routine 05/24/2018 10:33 Results for this PM CDT procedure are in the results section. TRANSFUSION SERVICE 05/24/2018 6:01 REPORT - SCAN PM CDT POCT-GLUCOSE METER Routine 05/24/2018 5:06 Results for this PM CDT procedure are in the results section. POCT-GLUCOSE METER Routine 05/24/2018 12:05 Results for this PM CDT procedure are in the results section. PROTHROMBIN TIME/INR Routine 05/24/2018 3:30 Results for this AM CDT procedure are in the results section. MAGNESIUM Routine 05/24/2018 3:30 Results for this AM CDT procedure are in the results section. BASIC METABOLIC PANEL Routine 05/24/2018 3:30 Results for this (7) AM CDT procedure are in the results section. CBC (HEMOGRAM ONLY) Routine 05/24/2018 3:30 Results for this AM CDT procedure are in the results section. POCT-GLUCOSE METER Routine 05/23/2018 11:12 Results for this PM CDT procedure are in the results section. POCT-GLUCOSE METER Routine 05/23/2018 5:09 Results for this PM CDT procedure are in the results section. CT BRAIN WITHOUT IV Routine 05/23/2018 3:13 Results for this CONTRAST PM CDT procedure are in the results section. POCT-GLUCOSE METER Routine 05/23/2018 12:29 Results for this PM CDT procedure are in the results section. TYPE AND SCREEN, Routine 05/23/2018 11:30 Results for this AUTOMATED AM CDT procedure are in the results section. POCT-GLUCOSE METER Routine 05/23/2018 7:26 Results for this AM CDT procedure are in the results section. APTT Routine 05/23/2018 6:15 Results for this AM CDT procedure are in the results section. FERRITIN Routine 05/23/2018 5:25 Results for this AM CDT procedure are in the results section. IRON, TIBC, % SAT. Routine 05/23/2018 5:25 Results for this (WITHOUT FERRITIN) AM CDT procedure are in the results section. MAGNESIUM Routine 05/23/2018 5:25 Results for this AM CDT procedure are in the results section. BASIC METABOLIC PANEL Routine 05/23/2018 5:25 Results for this (7) AM CDT procedure are in the results section. CBC (HEMOGRAM ONLY) Routine 05/23/2018 5:25 Results for this AM CDT procedure are in the results section. APTT Routine 05/22/2018 11:07 Results for this PM CDT procedure are in the results section. POCT-GLUCOSE METER Routine 05/22/2018 10:15 Results for this PM CDT procedure are in the results section. APTT Routine 05/22/2018 9:07 Results for this PM CDT procedure are in the results section. POCT-GLUCOSE METER Routine 05/22/2018 5:34 Results for this PM CDT procedure are in the results section. APTT Routine 05/22/2018 2:02 Results for this PM CDT procedure are in the results section. ECG 12-LEAD Routine 05/22/2018 1:56 PM CDT Procedure Note - Interface, External Ris In - 05/22/2018 2:04 PM CDT Ventricular Rate 80 BPM Atrial Rate 80 BPM P-R Interval 164 ms QRS Duration 100 ms Q-T Interval 394 ms QTC Calculation(Bazett) 454 ms P Trinity 23 degrees R Trinity 29 degrees T Trinity 194 degrees Sinus rhythm with marked sinus arrhythmia ST & T wave abnormality, consider inferolateral ischemia Abnormal ECG When compared with ECG of 20-MAY-2018 06:03, ST no longer depressed in Lateral leads T wave inversion now evident in Inferior leads T wave inversion now evident in Anterior leads ECG 12-LEAD Routine 05/22/2018 1:56 PM CDT APTT Routine 05/22/2018 12:23 PM CDT APTT Routine 05/22/2018 5:21 AM CDT PT/APTT STAT 05/22/2018 2:19 AM CDT VANCOMYCIN LEVEL, RANDOM Routine 05/22/2018 2:19 AM CDT CALCIUM, IONIZED Routine 05/22/2018 2:19 AM CDT PHOSPHORUS Routine 05/22/2018 2:19 AM CDT MAGNESIUM Routine 05/22/2018 2:19 AM CDT BASIC METABOLIC PANEL (7) Routine 05/22/2018 2:19 AM CDT CBC (HEMOGRAM ONLY) Routine 05/22/2018 2:19 AM CDT PT/APTT STAT 05/21/2018 11:39 PM CDT BASIC METABOLIC PANEL (7) RODOLFO 05/21/2018 1:05 PM CDT MR MRA NECK WITHOUT IV STAT 05/21/2018 11:53 AM CDT Results for this CONTRAST procedure are in the results section. MR MRA HEAD WITHOUT CONTRAST STAT 05/21/2018 11:53 AM CDT MR BRAIN WITHOUT IV CONTRAST STAT 05/21/2018 11:53 AM CDT XR CHEST 1 VIEW RODOLFO 05/21/2018 7:27 AM CDT Results for this PORTABLE/BEDSIDE procedure are in the results section. CALCIUM, IONIZED Routine 05/21/2018 2:59 AM CDT PHOSPHORUS Routine 05/21/2018 2:59 AM CDT MAGNESIUM Routine 05/21/2018 2:59 AM CDT HEMOGLOBIN A1C Routine 05/21/2018 2:59 AM CDT LIPID PANEL Routine 05/21/2018 2:59 AM CDT TSH/FREE T4 IF INDICATED Routine 05/21/2018 2:59 AM CDT VITAMIN B12 Routine 05/21/2018 2:59 AM CDT BASIC METABOLIC PANEL (7) Routine 05/21/2018 2:59 AM CDT CBC (HEMOGRAM ONLY) Routine 05/21/2018 2:59 AM CDT ECHOCARDIOGRAM REPORT - SCAN 05/20/2018 6:50 PM CDT CARDIAC CATH REPORT - SCAN 05/20/2018 3:41 PM CDT EEG AWAKE AND DROWSY Routine 05/20/2018 2:38 PM CDT POCT-GLUCOSE METER Routine 05/20/2018 1:50 PM CDT XR ABDOMEN 1 VIEW STAT 05/20/2018 11:22 AM CDT CREATINE KINASE (CK), TOTAL STAT 05/20/2018 11:05 AM CDT Results for this AND MB procedure are in the results section. TROPONIN I STAT 05/20/2018 11:05 AM CDT BLOOD GAS, VENOUS STAT 05/20/2018 11:05 AM CDT LACTIC ACID, VENOUS, WHOLE STAT 05/20/2018 11:05 AM CDT Results for this BLOOD procedure are in the results section. PHOSPHORUS STAT 05/20/2018 11:05 AM CDT MAGNESIUM STAT 05/20/2018 11:05 AM CDT COMPREHENSIVE METABOLIC STAT 05/20/2018 11:05 AM CDT Results for this PANEL procedure are in the results section. ECHOCARDIOGRAM REPORT - SCAN 05/20/2018 9:50 AM CDT 2D ECHO W/ DOPPLER STAT 05/20/2018 9:24 AM CDT Results for this (CW/PW/COLOR) procedure are in the results section. ECG 12-LEAD Routine 05/20/2018 6:03 AM CDT Procedure Note - Interface, External Ris In - 05/20/2018 6:09 AM CDT Ventricular Rate 81 BPM Atrial Rate 81 BPM P-R Interval 178 ms QRS Duration 88 ms Q-T Interval 388 ms QTC Calculation(Bazett) 450 ms P Trinity 52 degrees R Trinity 28 degrees T Trinity 136 degrees Normal sinus rhythm with sinus arrhythmia Possible Left atrial enlargement Left ventricular hypertrophy with repolarization abnormality Abnormal ECG When compared with ECG of 20-MAY-2018 01:07, Premature atrial complexes are no longer Present ECG 12-LEAD Routine 05/20/2018 6:03 AM CDT BASIC METABOLIC PANEL (7) Routine 05/20/2018 4:08 AM CDT CBC (HEMOGRAM ONLY) Routine 05/20/2018 4:08 AM CDT ECG 12-LEAD Routine 05/20/2018 1:07 AM CDT Procedure Note - Interface, External Ris In - 05/20/2018 2:20 AM CDT Ventricular Rate 84 BPM Atrial Rate 84 BPM P-R Interval 174 ms QRS Duration 88 ms Q-T Interval 376 ms QTC Calculation(Bazett) 444 ms P Trinity 56 degrees R Trinity 23 degrees T Trinity 138 degrees Sinus rhythm with Premature atrial complexes Possible Left atrial enlargement Left ventricular hypertrophy with repolarization abnormality Marked ST abnormality, possible anterior subendocardial injury Abnormal ECG When compared with ECG of 19-MAY-2018 20:09, Significant changes have occurred ECG 12-LEAD Routine 05/20/2018 1:07 AM CDT URINALYSIS W/ MICROSCOPIC Routine 05/19/2018 11:32 PM CDT URINE CULTURE Routine 05/19/2018 11:31 PM CDT BLOOD CULTURE Routine 05/19/2018 11:23 PM CDT BLOOD CULTURE Routine 05/19/2018 11:20 PM CDT XR CHEST 1 VIEW STAT 05/19/2018 9:32 PM CDT Results for this PORTABLE/BEDSIDE procedure are in the results section. POCT-LACTIC ACID, ARTERIAL Routine 05/19/2018 9:17 PM CDT POCT-HEMOGLOBIN Routine 05/19/2018 9:07 PM CDT POCT-HEMATOCRIT Routine 05/19/2018 9:07 PM CDT POCT-CALCIUM IONIZED Routine 05/19/2018 9:07 PM CDT POCT-GLUCOSE Routine 05/19/2018 9:07 PM CDT POCT-POTASSIUM Routine 05/19/2018 9:07 PM CDT POCT-SODIUM Routine 05/19/2018 9:07 PM CDT POCT-BLOOD GASES, ARTERIAL Routine 05/19/2018 9:[address] BRAIN/STROKE TEST DESIGN STAT 05/19/2018 8:42 PM CDT CBC W/PLT COUNT & AUTO STAT 05/19/2018 8:15 PM CDT Results for this DIFFERENTIAL procedure are in the results section. TROPONIN I STAT 05/19/2018 8:15 PM CDT PT/APTT STAT 05/19/2018 8:15 PM CDT CREATINE KINASE (CK), TOTAL STAT 05/19/2018 8:15 PM CDT Results for this AND MB procedure are in the results section. CBC W/PLT COUNT & AUTO STAT 05/19/2018 8:15 PM CDT Results for this DIFFERENTIAL procedure are in the results section. BASIC METABOLIC PANEL (7) STAT 05/19/2018 8:15 PM CDT ECG 12-LEAD Routine 05/19/2018 8:09 PM CDT ECG 12-LEAD Routine 05/19/2018 8:09 PM CDT Procedure Note - Interface, External Ris In - 05/19/2018 9:05 PM CDT Ventricular Rate 85 BPM Atrial Rate 85 BPM P-R Interval 182 ms QRS Duration 88 ms Q-T Interval 380 ms QTC Calculation(Bazett) 452 ms R Trinity 188 degrees T Trinity 33 degrees Normal sinus rhythm with sinus arrhythmia Right superior axis deviation ST & T wave abnormality, consider lateral ischemia Abnormal ECG No previous ECGs available POCT-GLUCOSE METER Routine 05/19/2018 7:58 PM Results for this CDT procedure are in the results section. TRANSFUSION SERVICE 05/19/2018 6:02 PM REPORT - SCAN CDT PREPARE RBC Routine 05/19/2018 10:47 AM Results for this CDT procedure are in the results section. POCT-ACT Routine 05/19/2018 8:59 AM Results for this CDT procedure are in the results section. 2D ECHO W/ DOPPLER Routine 05/19/2018 7:51 AM Results for this (CW/PW/COLOR) CDT procedure are in the results section. TAVR / CHEO MCR - 05/19/2018 7:30 AM Nonrheumatic aortic IP PROC ONLY CDT valve stenosis Case Notes (1) POP6 TAVR (CV ANES) DEVANTE Special Needs SCOT [phone]/[facility] TRANSFUSION SERVICE 04/22/2018 5:42 PM REPORT - SCAN CDT CBC W/PLT COUNT & AUTO Routine 04/21/2018 1:51 PM Results for this DIFFERENTIAL CDT procedure are in the results section. TYPE AND SCREEN, Routine 04/21/2018 1:51 PM Results for this AUTOMATED CDT procedure are in the results section. PROTHROMBIN TIME/INR Routine 04/21/2018 1:51 PM Results for this CDT procedure are in the results section. B-TYPE NATRIURETIC Routine 04/21/2018 1:51 PM Results for this FACTOR (BNP) CDT procedure are in the results section. CBC W/PLT COUNT & AUTO Routine 04/21/2018 1:51 PM Results for this DIFFERENTIAL CDT procedure are in the results section. COMPREHENSIVE Routine 04/21/2018 1:51 PM Results for this METABOLIC PANEL CDT procedure are in the results section. CT/CTA CHEST Routine 04/19/2018 10:17 AM Aortic valve Results for this CDT stenosis, etiology procedure are in of cardiac valve the results disease unspecified section. CT/CTA ABDOMEN & Routine 04/19/2018 10:17 AM Aortic valve Results for this PELVIS CDT stenosis, etiology procedure are in of cardiac valve the results disease unspecified section. POCT-CREATININE Routine 04/19/2018 9:34 AM Severe aortic Results for this CDT stenosis procedure are in the results section. after 10/18/2017 Results RHYTHM STRIP - SCAN (06/01/2018 8:10 AM CDT) Narrative Performed At POC-Glucose meter (05/30/2018 8:21 AM CDT)Only the most recent of32 resultswithin the time period is included. POC-Glucose Meter 112 (H)Comment: TESTED AT 70 - 110 mg/dL [facility] [address] [place] [address] Specimen Blood Performing Organization Address [facility] [place] [address] [phone] CENTER Prothrombin time/INR (05/30/2018 4:31 AM CDT)Only the most recent of8 resultswithin the time period is included. Protime 22.3 (H) 11.7 - 14.7 seconds [facility] INR 2.0 <=5.9 [facility] Specimen Blood - Arm, Right Narrative Performed At [facility] RECOMMENDED COUMADIN/WARFARIN INR THERAPY RANGES STANDARD DOSE: 2.0 - 3.0 Includes: PROPHYLAXIS for venous thrombosis, systemic embolization; TREATMENT for venous thrombosis and/or pulmonary embolus. HIGH RISK: Target INR is 2.5-3.5 for patients with mechanical heart valves. Performing Organization Address [facility] Phone Number [address] [address] CENTER CBC (Hemogram only) (05/30/2018 4:31 AM CDT)Only the most recent of8 resultswithin the time period is included. WBC 10.0 3.5 - 10.5 K/L [facility] RBC 3.44 (L) 4.63 - 6.08 M/L [facility] Hemoglobin 9.6 (L) 13.7 - 17.5 GM/DL [facility] Hematocrit 30.8 (L) 40.1 - 51.0 % [facility] MCV 89.5 79.0 - 92.2 fL [facility] MCH 27.9 25.7 - 32.2 pg [facility] MCHC 31.2 (L) 32.3 - 36.5 GM/DL [facility] RDW 16.1 (H) 11.6 - 14.4 % [facility] Platelets 169 150 - 450 K/CU MM [facility] MPV 11.5 9.4 - 12.4 fL [facility] nRBC 0 0 - 0 /100 WBC [facility] Specimen Blood - Arm, Right Performing Organization Address City/[facility] Phone Number [facility] [address] [place] [address] [phone] CENTER Basic Metabolic Panel (05/30/2018 4:31 AM CDT)Only the most recent of11 resultswithin the time period is included. Sodium 136 136 - 145 meq/L [facility] Potassium 3.7 3.5 - 5.1 meq/L [facility] Chloride 101 98 - 107 meq/L [facility] CO2 26 22 - 29 meq/L [facility] BUN 28 (H) 7 - 21 mg/dL [facility] Creatinine 1.31 (H) 0.57 - 1.25 mg/dL [facility] Glucose 74 70 - 105 mg/dL [facility] Calcium 8.9 8.4 - 10.2 mg/dL [facility] EGFR 52Comment: ESTIMATED GFR IS mL/min/1.73 sq m [facility] NOT ACCURATE [facility] CLEARANCE IN PREDICTING GLOMERULAR FILTRATION RATE. ESTIMATED GFR IS NOT APPLICABLE FOR DIALYSIS PATIENTS. Specimen Blood - Arm, Right Performing Organization Address City/State/Zipcode Phone Number [facility] [address] [place], [place] [address] [phone] CENTER Magnesium (05/28/2018 5:53 AM CDT)Only the most recent of9 resultswithin the time period is included. Magnesium 2.3 1.6 - 2.6 mg/dL [facility] Specimen Blood - Arm, Left Performing Organization Address City/[facility] Phone Number [facility] [address] [place], [place] [id number] [phone] CENTER Transfuse Leuko-Red RBC (05/26/2018 1:11 PM CDT)Only the most recent of2 resultswithin the time period is included.CBC with platelet count + automated diff (05/26/2018 6:27 AM CDT)Only the most recent of3 resultswithin the time period is included. WBC 12.2 (H) 3.5 - 10.5 K/L [facility] RBC 3.70 (L) 4.63 - 6.08 M/L [facility] Hemoglobin 10.6 (L) 13.7 - 17.5 GM/DL [facility] Hematocrit 33.2 (L) 40.1 - 51.0 % [facility] MCV 89.7 79.0 - 92.2 fL [facility] MCH 28.6 25.7 - 32.2 pg [facility] MCHC 31.9 (L) 32.3 - 36.5 GM/DL [facility] RDW 15.9 (H) 11.6 - 14.4 % [facility] Platelets 137 (L) 150 - 450 K/CU MM [facility] [facility] MPV 11.1 9.4 - 12.4 fL [facility] nRBC 0 0 - 0 /100 WBC [facility] % Neutros 54 % [facility] % Lymphs 33 % [facility] % Monos 8 % [facility] % Eos 3 % [facility] % Baso 0 % [facility] # Neutros 6.59 (H) 1.78 - 5.38 K/L [facility] # Lymphs 3.96 (H) 1.32 - 3.57 K/L [facility] # Monos 1.00 (H) 0.30 - 0.82 K/L [facility] # Eos 0.30 0.04 - 0.54 K/L [facility] # Baso 0.05 0.01 - 0.08 K/L [facility] Immature Granulocytes-Relative 2 (H) 0 - 1 % [facility] Specimen Blood - Arm, Right Performing Organization Address City/State/Zipcode Phone Number [facility] [address] [place] [address] [phone] brain without IV contrast (05/25/2018 7:04 PM CDT)Only the most recent of2 resultswithin the time period is included. Narrative Performed At FINAL REPORT [employer] CT head without contrast 05/25/2018 7:14 PM [...] MD Report Verified Date/Time:05/25/2018 19:17:21 Reading Location: [facility] Radiology Reading Room Procedure Note Interface, [...] Report Verified Date/Time: 05/25/2018 19:17:21 Reading Location: [facility] Radiology Reading Room Performing Organization Address City/State/Zipcode Phone Number [employer] RIS TRANSFUSION SERVICE REPORT - SCAN (05/25/2018 6:00 PM CDT)Only the most recent of4 resultswithin the time period is included. Narrative Performed At Prepare Leuko-Red RBC (05/24/2018 11:54 PM CDT) CROSSMATCH COMPATIBLE SAFETRACE TX Unit ABO O Pos SAFETRACE TX UNIT NUMBER [id number] [place] [place] Status TRANSFUSED SAFET[facility]ACE [place] Blood Bank Product RED BLOOD CELLS [place]AF[place]ACE [place] PRODUCT CODE [id number] [place] Specimen Other Performing Organization Address [facility] Phone Number [place]ACE [place] Type and screen, automated (05/23/2018 11:30 AM CDT)Only the most recent of2 resultswithin the time period is included. ABO/RH AUTOMATED (BEAKER) O POSITIVE [facility] Ab Scrn NEGATIVE [facility] Specimen Blood Performing Organization Address [facility] Phone Number [address] [address] aPTT (05/23/2018 6:15 AM CDT)Only the most recent of6 resultswithin the time period is included. PTT 94.3 (H) 22.5 - 36.0 seconds [facility] Specimen Blood Performing Organization Address [facility] Phone Number [address] [address] [phone] CENTER Iron, TIBC, % sat. (without ferritin) (05/23/2018 5:25 AM CDT) Iron 63 40 - 160 ug/dL [facility] TIBC 224 (L) 250 - 450 ug/dL [facility] Iron % Saturation 28 20 - 55 % [facility] Specimen Blood Performing Organization Address [facility] Phone Number [address] [address] [phone] CENTER Ferritin (05/23/2018 5:25 AM CDT) Ferritin 435 (H) 5 - 275 ng/mL [facility] Specimen Blood Performing Organization Address [facility] Phone Number [facility] [address] [place] [address] CENTER ECG 12 lead (05/22/2018 1:56 PM CDT)Only the most recent of4 resultswithin the time period is included. Narrative Performed At Ventricular Rate 80 BPM GE MUSE Atrial Rate 80 BPM P-R Interval 164 ms QRS Duration 100 ms Q-T Interval 394 ms QTC Calculation(Bazett) 454 ms P Trinity 23 degrees R Trinity 29 degrees T Trinity 194 degrees Sinus rhythm with marked sinus [...] 394 ms QTC Calculation(Bazett) 454 ms P Trinity 23 degrees R Trinity 29 degrees T Trinity 194 degrees Sinus rhythm with marked sinus arrhythmia ST & T wave abnormality, consider inferolateral ischemia Abnormal ECG When compared with ECG of 20-MAY-2018 06:03, ST no longer depressed in Lateral leads T wave inversion now evident in Inferior leads T wave inversion now evident in Anterior leads Confirmed by MD TERESA, ALEJANDRAMIJackie ([id number]) on 05/22/2018 2:20:53 PM Performing Organization Address City/[facility]/Zipcode Phone Number GE MUSE PT/aPTT (05/22/2018 2:19 AM CDT)Only the most recent of3 resultswithin the time period is included. Protime 15.0 (H) 11.7 - 14.7 seconds [facility] INR 1.2 <=5.9 [facility] PTT 179.7 (HH) 22.5 - 36.0 seconds [facility] Specimen Blood Narrative Performed At [facility] RECOMMENDED COUMADIN/WARFARIN INR THERAPY RANGES STANDARD DOSE: 2.0 - 3.0 Includes: PROPHYLAXIS for venous thrombosis, systemic embolization; TREATMENT for venous thrombosis and/or pulmonary embolus. HIGH RISK: Target INR is 2.5-3.5 for patients with mechanical heart valves. Performing Organization Address City/State/Zipcode Phone Number [address] [address] CENTER Calcium, Ionized (05/22/2018 2:19 AM CDT)Only the most recent of2 resultswithin the time period is included. Calcium, Ion 1.15 1.12 - 1.27 mmol/L [facility] pH, Blood 7.40 [facility] Specimen Blood Performing Organization Address [facility] Phone Number [address] [address] CENTER Phosphorus (05/22/2018 2:19 AM CDT)Only the most recent of3 resultswithin the time period is included. Phosphorus 3.6 2.3 - 4.7 mg/dL [facility] Specimen Blood Performing Organization Address [facility] Phone Number [address] [address] [place] Vancomycin level, random (05/22/2018 2:19 AM CDT) Vancomycin Rm 24.4 ug/mL [facility] Specimen Blood Narrative Performed At [facility] Reference Range: No Normals Performing Organization Address [facility] Phone Number [address] [address] CENTER MR brain without IV contrast (05/21/2018 11:53 AM CDT) Narrative Performed At FINAL REPORT [facility] MRI Brain without contrast Clinical History: Stroke [...] MD Report Verified Date/Time:05/21/2018 11:58:08 Reading Location: [address] Neuro Reading Room Procedure Note Interface, [...] Report Verified Date/Time: 05/21/2018 11:58:08 Reading Location: [address] Neuro Reading Room Performing Organization Address City/State/Zipcode Phone Number [facility] [employer] MRA neck without IV contrast (05/21/2018 11:53 AM CDT) Narrative Performed At FINAL REPORT [facility] MRA Head and Neck CLINICAL HISTORY: Stroke TECHNIQUE: MRA of the head utilizing 3-D zbkc-oy-ewofhk technique, with 3-D reconstructions. MRA of the neck utilizing 2-D and 3-D hont-fk-olbsbb technique, with 3-D reconstructions. COMPARISON: None FINDINGS: There is no evidence for a united [place] proximal branch vessel occlusion. There [...] vertebral arteries. IMPRESSION: No evidence for a united [place] proximal branch vessel occlusion. No hemodynamically significant stenosis in the internal carotid arteries. 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 Signed: Jaycob Alvarado MD Report Verified Date/Time:05/21/2018 12:04:26 Reading Location: [address] Neuro Reading Room Procedure Note Interface, External Ris In - 05/21/2018 12:06 PM CDT FINAL REPORT MRA Head and Neck CLINICAL HISTORY: Stroke TECHNIQUE: MRA of the head utilizing 3-D ksll-cb-fayuky technique, with 3-D reconstructions. MRA of the neck utilizing 2-D and 3-D kfcn-le-iuudll technique, with 3-D reconstructions. COMPARISON: None FINDINGS: There is no evidence for a united [place] proximal branch vessel occlusion. There [...] vertebral arteries. IMPRESSION: No evidence for a united [place] proximal branch vessel occlusion. No hemodynamically significant stenosis in the internal carotid arteries. 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 Signed: Jaycob Alvarado MD Report Verified Date/Time: 05/21/2018 12:04:26 Reading Location: [address] Neuro Reading Room Performing Organization Address City/State/Zipcode Phone Number [facility] MRA head without IV contrast (05/21/2018 11:53 AM CDT) Narrative Performed At FINAL REPORT [facility] MRA Head and Neck CLINICAL HISTORY: Stroke TECHNIQUE: MRA of the head utilizing 3-D ueta-yr-qbdiqd technique, with 3-D reconstructions. MRA of the neck utilizing 2-D and 3-D wmze-xk-oweywd technique, with 3-D reconstructions. COMPARISON: None FINDINGS: There is no evidence for a united [place] proximal branch vessel occlusion. There [...] vertebral arteries. IMPRESSION: No evidence for a united [place] proximal branch vessel occlusion. No hemodynamically significant stenosis in the internal carotid arteries. 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 Signed: Jaycob Alvarado MD Report Verified Date/Time:05/21/2018 12:04:26 Reading Location: [address] Neuro Reading Room Procedure Note Interface, External Ris In - 05/21/2018 12:06 PM CDT FINAL REPORT MRA Head and Neck CLINICAL HISTORY: Stroke TECHNIQUE: MRA of the head utilizing 3-D xkjf-pi-opwjsj technique, with 3-D reconstructions. MRA of the neck utilizing 2-D and 3-D qehp-lk-gjxpgk technique, with 3-D reconstructions. COMPARISON: None FINDINGS: There is no evidence for a united [place] proximal branch vessel occlusion. There [...] vertebral arteries. IMPRESSION: No evidence for a united [place] proximal branch vessel occlusion. No hemodynamically significant stenosis in the internal carotid arteries. 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 Signed: Jaycob Alvarado MD Report Verified Date/Time: 05/21/2018 12:04:26 Reading Location: [facility] C013V Neuro Reading Room Performing Organization Address City/State/Zipcode Phone Number [facility] XR chest 1 view portable / bedside (05/21/2018 7:27 AM CDT)Only the most recent of2 resultswithin the time period is included. Narrative Performed At FINAL REPORT [facility] Portable chest CLINICAL HISTORY: Hypoxemia. COMPARISON STUDY: May 19, 2018. FINDINGS: The cardiac silhouette is unremarkable. The patient is status post sternotomy and valve replacement. There are increased interstitial markings with atelectatic changes in the lung bases and costophrenic angle blunting. No pneumothorax is noted. Degenerative changes are seen. IMPRESSION: No significant change. Signed: Addy Zapata MD Report Verified Date/Time:05/21/2018 10:54:40 Reading Location: [facility] C013X Ortho Consult Reading Room Procedure Note Interface, [...] Report Verified Date/Time: 05/21/2018 10:54:40 Reading Location: [address] Ortho Consult Reading Room Performing Organization Address City/[facility] Phone Number RIS TSH/Free T4 If Indicated (05/21/2018 2:59 AM CDT) TSH 0.77 0.35 - 4.94 uIU/mL [facility] Specimen Blood Performing Organization Address [facility] Phone Number [address] [address] CENTER Hemoglobin A1c (05/21/2018 2:59 AM CDT) Hemoglobin A1C 8.1 (H) 4.3 - 6.1 % [facility] Specimen Blood Performing Organization Address City/[facility] Phone Number [address] [address] [place] Vitamin B12 (05/21/2018 2:59 AM CDT) Vitamin B12 692 213 - 816 pg/mL [facility] Specimen Blood Performing Organization Address [facility] Phone Number [address] [address] [phone] CENTER Lipid panel (05/21/2018 2:59 AM CDT) Triglycerides 348 mg/dL [facility] Cholesterol 208 mg/dL [facility] HDL 26 mg/dL [facility] LDL Calculated 112 mg/dL [facility] Specimen Blood Narrative Performed At [facility] Triglyceride Reference Range: Low Risk <150 [id number] High Risk 200-499 Very High Risk>=500 Cholesterol Reference Range: Low Risk <200 Tscyclkzaq156-841 High Risk>240 HDL Cholesterol Reference Range: Low Risk >=60 High Risk <40 LDL Cholesterol Reference Range: Optimal<100 Near Hlxmyaj202-196 Yixmtbldhf997-711 Izuf675-141 Very High >=190 Performing Organization Address City/State/Zipcode Phone Number [facility] [address] [place] [address] CENTER ECHOCARDIOGRAM REPORT - SCAN (05/20/2018 6:50 PM CDT) Narrative Performed At CARDIAC CATH REPORT - SCAN (05/20/2018 3:41 PM CDT) Narrative Performed At EEG AWAKE AND DROWSY (05/20/2018 2:38 PM CDT) Narrative Performed At Date(s) of EE05/20/2018 GE RIS DATE OF REPORT: 05/20/2018 ACC: [id number] EEG Number: [id number] Test Location: Inpatient ICU Start time: 14:17 Stop time: 14:38 ICD-10: R56.9 CPT Code: 97947 HISTORY: 87 y.o. RHM w/ severe who [...] Fellow, PGY5 Linette Choe MD Attending Neurophysiologist [facility] Procedure Note Interface, External Ris In - 05/20/2018 3:54 PM CDT Date(s) of EE05/20/2018 DATE OF REPORT: 05/20/2018 ACC: [id number] EEG Number: [id number] Test Location: Inpatient ICU Start time: 14:17 Stop time: 14:38 ICD-10: R56.9 CPT Code: 07773 HISTORY: 87 y.o. RHM w/ severe who [...] Fellow, PGY5 Linette Choe MD Attending Neurophysiologist [facility] Performing Organization Address [facility] Phone Number [facility] XR abdomen / KUB 1 view (05/20/2018 11:22 AM CDT) Narrative Performed At FINAL REPORT [facility] Abdomen one view INDICATION: Nasogastric tube insertion COMPARISON: None available IMPRESSION: NG tube extends to the gastric body. The imaged bowel gas pattern is nonspecific. There are degenerative spine changes and incidental vascular calcifications. The imaged chest is similar to 05/19/2018. Signed: Virgil Kraft MD Report Verified Date/Time:05/20/2018 11:33:02 Reading Location: [facility] Radiology Reading Room Procedure Note Interface, [...] Report Verified Date/Time: 05/20/2018 11:33:02 Reading Location: [facility] Radiology Reading Room Performing Organization Address [facility] Phone Number GE RIS Troponin I (05/20/2018 11:05 AM CDT)Only the most recent of2 resultswithin the time period is included. Troponin I 1.13 (HH) 0.00 - 0.03 ng/mL [facility] Specimen Blood - Arm, Right Narrative Performed At [facility] Troponin I (TnI) levels must be interpreted [...] acidosis, acute neurological disease, and persistent tachyarrhythmia. Performing Organization Address City/[facility]/Zipcode Phone Number [address] [address] [phone] CENTER Lactic acid, venous, whole blood (05/20/2018 11:05 AM CDT) Lactate, Venous 2.1 0.5 - 2.2 mmol/L [facility] Specimen Blood - Arm, Right Narrative Performed At [facility] Effective 04/02/2016: Units/Reference Range Change New: 0.5-2.2 mmol/LPrevious: 5-20 mg/dL Performing Organization Address City/[facility]/Zipcode Phone Number [address] [address] [phone] CENTER Blood gas, venous (05/20/2018 11:05 AM CDT) pH, Phil 7.40 7.32 - 7.42 [facility] pCO2, Phil 45 41 - 51 mmHg [facility] pO2, Phil 26 25 - 40 mmHg [facility] O2 Sat, Phil 46.3 40.0 - 70.0 % [facility] HCO3, Phil 27 21 - 29 mmol/L [facility] Base Excess, Phil 1.8 -2.0 - 3.0 mmol/L [facility] Patient Temperature 36.9 C [facility] FIO2 36.0 % [facility] Specimen Blood - Arm, Right Performing Organization Address City/State/Zipcode Phone Number [address] [address] [phone] [place] Creatine Kinase (CK), Total and MB (05/20/2018 11:05 AM CDT)Only the most recent of2 resultswithin the time period is included. Total CK 138 29 - 200 U/L [facility] CK-MB 4.2 0.0 - 6.6 ng/mL [facility] MB Relative Index 3.0 % [facility] Specimen Blood - Arm, Right Narrative Performed At CK-MB Reference Range: [facility] <6.7Normal 6.7-10.0Borderline >10.0 Abnormal Performing Organization Address City/[facility] Phone Number [address] [address] [phone] [place] Comprehensive metabolic panel (05/20/2018 11:05 AM CDT)Only the most recent of2 resultswithin the time period is included. Protein, Total 5.7 (L) 6.0 - 8.3 gm/dL [facility] Albumin 3.4 (L) 3.5 - 5.0 g/dL [facility] Alkaline Phosphatase 42 40 - 150 U/L [facility] Total Bilirubin 0.8 0.2 - 1.2 mg/dL [facility] Sodium 139 136 - 145 meq/L [facility] Potassium 4.2 3.5 - 5.1 meq/L [facility] Chloride 100 98 - 107 meq/L [facility] CO2 23 22 - 29 meq/L [facility] BUN 38 (H) 7 - 21 mg/dL [facility] Creatinine 2.17 (H) 0.57 - 1.25 mg/dL [facility] Glucose 129 (H) 70 - 105 mg/dL [facility] Calcium 9.0 8.4 - 10.2 mg/dL [facility] AST 27 5 - 34 U/L [facility] ALT 14 6 - 55 U/L [facility] EGFR 29Comment: ESTIMATED GFR mL/min/1.73 sq m [facility] IS NOT ACCURATE [facility] CREATININE CLEARANCE IN PREDICTING GLOMERULAR FILTRATION RATE. ESTIMATED GFR IS NOT APPLICABLE FOR DIALYSIS PATIENTS. Specimen Blood - Arm, Right Performing Organization Address City/State/Zipcode Phone Number [facility] [address] [place] [address] CENTER ECHOCARDIOGRAM REPORT - SCAN (05/20/2018 9:50 AM CDT) Narrative Performed At 2D Echo W/Doppler(CW/PW/Color) (05/20/2018 9:24 AM CDT) Ejection Fraction [facility] Narrative Performed At Transthoracic Echocardiography Report (TTE) [facility] Demographics Patient Name Catherine SEXTON of Study 05/20/2018 RIOS [id number] GenderMale Visit Number [id number] Room Number 8A11 Number Date of Birth1930Referring Physician Cristobal Moreno MD 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 Mi ld concentric LV hypertrophy. All of the LV se gments are hyperkinetic . Estimated LVEF by qu alitative assessment is increased (>70%) . Gr reagan 1 diastolic dysfunction (impaired relaxation an d low-normal LA pressure). Left AtriumLA size is normal . Right VentricleNormal right ventricle structure and function. Right Atrium Normal right atrium. Aortic Valve A percutaneous (TAVR) biologic AoV prosthesis is vi sualized . Th e prosthetic AoV appears well-seated with normal fu nction by Doppler. Mitral Valve Mild MV leaflet thickening. Mild to moderate mitral an nular calcification. Tricuspid ValveTV is partially visualized. Un able to estimate peak systolic PA pressure; in adequate TR velocity signal. Pulmonic Valve PV is not well visualized. AortaAortic root size (SInus of Valsalva diameter) is no rmal . PericardiumNo evidence of pericardial effusion. 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 Phone Number [facility] Urinalysis w/Microscopic (05/19/2018 11:32 PM CDT) Color, UA Yellow [facility] Clarity, UA Clear [facility] Specific [place], UA 1.017 1.001 - 1.035 [facility] pH, UA 5.0 5.0 - 8.0 [facility] Protein, UA Negative Negative [facility] Glucose, UA Negative Negative [facility] Ketones, UA Negative Negative [facility] Bilirubin, UA Negative Negative [facility] Blood, UA Small (A) Negative [facility] Nitrite, UA Negative Negative [facility] Leukocytes, UA Negative Negative [facility] Urobilinogen, UA 0.2 0.2 - 1.0 mg/dL [facility] RBC, UA 12 /HPF [facility] WBC, UA 1 /HPF [facility] Mucus Rare [facility] Amorphous Crystals Occasional [facility] Specimen Source Urine, Corral [facility] Specimen Urine - Urine, Corral Performing Organization Address [facility]/Zipcode Phone Number [address] [phone] [place] Urine culture (05/19/2018 11:31 PM CDT) Result No growth [facility] Specimen Urine - Urine, Corral Performing Organization Address [facility] Phone Number [address] [phone] [place] Blood culture (05/19/2018 11:23 PM CDT)Only the most recent of2 resultswithin the time period is included. Result No growth in 5 days [facility] Specimen Blood - Arm, Left Performing Organization Address [facility] Phone Number [address] [address] [place] POC-Lactic Acid, Arterial (05/19/2018 9:17 PM CDT) POC-Lactic Acid, 1.5 (H)Comment: 0.4 - 1.3 mmol/L [facility] Arterial TESTED AT [address] [address] Specimen Blood Performing Organization Address [facility] Phone Number [address] [address] [place] POCT-HEMATOCRIT (05/19/2018 9:07 PM CDT) POC-Hematocrit 32 (L)Comment: TESTED AT 40 - 50 % [address] [address] Specimen Blood Performing Organization Address [facility] Phone Number [address] [address] [place] POCT-HEMOGLOBIN (05/19/2018 9:07 PM CDT) POC-Hemoglobin 10.9 (L)Comment: TESTED AT 13.0 - 16.8 g/dL [address] [id number] AT [address] [address] Specimen Blood Performing Organization Address City/[facility]/Zipcode Phone Number [address] [address] [phone] [place] POCT-GLUCOSE (05/19/2018 9:07 PM CDT) POC-Glucose 152 (H)Comment: TESTED AT 70 - 110 mg/dL [address] [address] Specimen Blood Performing Organization Address City/[facility] Phone Number [address] [phone] [place] POC-Sodium (05/19/2018 9:07 PM CDT) POC-Sodium 137Comment: TESTED AT [facility] 135 - 148 meq/L [address] [address] Specimen Blood Performing Organization Address [facility] Phone Number [address] [address] [phone] [place] POC-Potassium (05/19/2018 9:07 PM CDT) POC-Potassium 3.6Comment: TESTED AT [facility] 3.6 - 5.5 meq/L [address] [address] Specimen Blood Performing Organization Address [facility] Phone Number [address] [address] [place] POC-Calcium ionized (05/19/2018 9:07 PM CDT) POC-Calcium Ionized 1.19Comment: TESTED AT 1.12 - 1.27 mmol/L [address] [address] Specimen Blood Performing Organization Address City/[facility] Phone Number [address] [phone] C[place] POC-Blood gases, arterial (05/19/2018 9:07 PM CDT) Temp. Celsius-POC 37.1 [facility] FIO2-POC 29Comment: TESTED AT [facility] [address] [facility] [address] pH, Arterial-POC 7.468 (H) 7.350 - 7.450 [facility] PCO2, Arterial-POC 34.4 (L) 35.0 - 45.0 mm Hg [facility] PO2, Arterial-POC 63.0 (L) 80.0 - 90.0 mm Hg [facility] SO2, Arterial-POC 93.0 (L) 96.0 - 97.0 % [facility] HCO3, Arterilal-POC 24.9 21.0 - 29.0 meq/L [facility] BE, Arterial-POC 1.0 -2.0 - 3.0 meq/L [facility] Specimen Blood Performing Organization Address City/State/Zipcode Phone Number [address] brain/stroke test design (05/19/2018 8:42 PM CDT) Narrative Performed At FINAL REPORT [facility] CT head without contrast 05/19/2018 8:43 PM [...] MD Report Verified Date/Time:05/19/2018 20:46:09 Reading Location: [facility] Radiology Reading Room Procedure Note Interface, [...] Report Verified Date/Time: 05/19/2018 20:46:09 Reading Location: [facility] Radiology Reading Room Performing Organization Address City/State/Zipcode Phone Number RIS Prepare RBC (05/19/2018 10:47 AM CDT) CROSSMATCH COMPATIBLE SAFETRACE TX Unit ABO O Pos SAFETRACE TX UNIT NUMBER [id number] SAFETRACE TX Status RETURNED FROM ISSUE SAFETRACE TX Blood Bank Product RED BLOOD CELLS SAFETRACE TX PRODUCT CODE [id number] SAFETRACE TX CROSSMATCH COMPATIBLE SAFETRACE TX Unit ABO O Pos SAFETRACE TX UNIT NUMBER [id number] SAFETRACE TX Status RETURNED FROM ISSUE SAFETRACE TX Blood Bank Product RED BLOOD CELLS SAFETRACE TX PRODUCT CODE [id number] SAFETRACE TX CROSSMATCH COMPATIBLE SAFETRACE TX Unit ABO O Pos SAFETRACE TX UNIT NUMBER [id number] SAFETRACE TX Status RETURNED FROM ISSUE SAFETRACE TX Blood Bank Product RED BLOOD CELLS SAFETRACE TX PRODUCT CODE [id number] SAFETRACE TX CROSSMATCH COMPATIBLE SAFETRACE TX Unit ABO O Pos SAFETRACE TX UNIT NUMBER [id number] SAFETRACE TX Status RETURNED FROM ISSUE SAFETRACE TX Blood Bank Product RED BLOOD CELLS SAFETRACE TX PRODUCT CODE [id number] SAFETRACE TX Performing Organization Address [facility] Phone Number SAFETRACE TX POC ACTIVATED CLOTTING TIME (05/19/2018 8:59 AM CDT) Activated Clotting Time 329Comment: TESTED AT [address] [address] Specimen Blood Performing Organization Address 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 Clinical History CAROTID ARTERY DISEASE, CAD, VILLANUEVA, MURMUR, HLD, HTN, PND, SEVERE , PTCA, CABG (2002), FORMER SMOKER, CKD, PVD Height: 72 inches Weight: 92.99 kg (205 lbs) BSA: 2.15 m^2 BMI: 27.8 kg/m^2 HR: 51 bpm BP: 153/67 mmHg Summary Limited 2D and limited Doppler exam after TAVR. The prosthetic AoV appears well-seated with normal function by Doppler. A percutaneous (TAVR) biologic AoV prosthesis is visualized . The prosthetic AoV appears well-seated with normal function by Doppler. An echo lucent space is noted consistent with prominent pericardial fat pad. Previous Study No prior exam available for comparison. Signature Findings Rhythm/BPRegular sinus rhythm during the exam. Left Ventricle Limited 2D exam and Doppler exam to assess TAVR de ployment. The left ventricle is normal in size an d contractility. Wall thickness is increased. Left AtriumLA is incompletely visualized. Right VentricleThe right ventricle is not well visualized. Right Atrium The RA is not well visualized. Atrial SeptumThe interatrial septum is not well visualized. Aortic Valve A percutaneous (TAVR) biologic AoV prosthesis is vi sualized . Th e prosthetic AoV appears well-seated with normal fu nction by Doppler. Mitral Valve MV is not well visualized. Mi ld MV leaflet thickening. Mi ld mitral annular calcification. Tricuspid ValveTV is not well visualized. AortaAortic root size (SInus of Valsalva diameter) is no rmal . PericardiumAn echo lucent space is noted consistent with pr ominent pericardial fat pad. IVC/SVC/PA/PV/PleuralThe inferior vena cava is not well visualized. 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 Clinical History CAROTID ARTERY DISEASE, CAD, VILLANUEVA, MURMUR, HLD, HTN, PND, SEVERE , PTCA, CABG (2002), FORMER SMOKER, CKD, PVD Height: 72 inches Weight: 92.99 kg (205 lbs) BSA: 2.15 m^2 BMI: 27.8 kg/m^2 HR: 51 bpm BP: 153/67 mmHg Summary Limited 2D and limited Doppler exam after TAVR. The prosthetic AoV appears well-seated with normal function by Doppler. A percutaneous (TAVR) biologic AoV prosthesis is visualized . The prosthetic AoV appears well-seated with normal function by Doppler. An echo lucent space is noted consistent with prominent pericardial fat pad. Previous Study No prior exam available for comparison. Signature Findings Rhythm/BP Regular sinus rhythm during the exam. Left Ventricle Limited 2D exam and Doppler exam to assess TAVR deployment. The left ventricle is normal in size and contractility. Wall thickness is increased. Left Atrium LA is incompletely visualized. Right Ventricle The right ventricle is not well visualized. Right Atrium The RA is not well visualized. Atrial Septum The interatrial septum is not well visualized. Aortic Valve A percutaneous (TAVR) biologic AoV prosthesis is visualized . The prosthetic AoV appears well-seated with normal function by Doppler. Mitral Valve MV is not well visualized. Mild MV leaflet thickening. Mild mitral annular calcification. Tricuspid Valve TV is not well visualized. Aorta Aortic root size (SInus of Valsalva diameter) is normal . Pericardium An echo lucent space is noted consistent with prominent pericardial fat pad. IVC/SVC/PA/PV/Pleural The inferior vena cava is not well visualized. Performing Organization Address City/[facility]/Zipcode Phone Number [facility] B-type Natriuretic Factor (BNP) (04/21/2018 1:51 PM CDT) BNP 785 (H) 0 - 100 pg/mL [facility] Specimen Blood Performing Organization Address City/State/Zipcode Phone Number [place] [phone] [place] [address] CENTER CTA chest (04/19/2018 10:17 AM CDT) Narrative Performed At Addendum Begins [employer] [facility] REPORT STATUS:A Addendum: I agree with the previously described non vascular findings.. Additionally, the lungs demonstrate fibrotic changes which are most pronounced in the bilateral bases. Biapical pleural-parenchymal scarring is present. Signed: Dejon Bland MD Report Verified Date/Time:04/20/2018 12:54:28 Reading Location: [facility] P048 Angio Body Reading Room Addendum Ends [...] measures 7.3 and 7.9 mm, respectively with izml-fc-zepvaqfzarkvbdkiqv and nocalcific atherosclerosis present. The minimum and [...] 5.An addendum will be dictated by the Waterproofing Machine Operator Radiologist regarding the nonvascular findings. Signed: Puneet Espinoza MD Report Verified Date/Time:04/19/2018 14:19:03 Reading Location: [place] [address] Cardiology MRI Procedure Note Interface, External Ris In - 04/20/2018 12:56 PM CDT Addendum Begins REPORT STATUS:A Addendum: I agree with the previously described non vascular findings.. Additionally, the lungs demonstrate fibrotic changes which are most pronounced in the bilateral bases. Biapical pleural-parenchymal scarring is present. Signed: Dejon Bland MD Report Verified Date/Time: 04/20/2018 12:54:28 Reading Location: [place] [address] Angio Body Reading Room Addendum Ends FINAL [...] measures 7.3 and 7.9 mm, respectively with dqot-rl-xqznskpr tortuosity and no calcific atherosclerosis present. The [...] An addendum will be dictated by the Waterproofing Machine Operator Radiologist regarding the nonvascular findings. Signed: Puneet Espinoza MD Report Verified Date/Time: 04/19/2018 14:19:03 Reading Location: [place] [address] Cardiology MRI Performing Organization Address City/State/Zipcode Phone Number [facility] CTA abdomen & pelvis (04/19/2018 10:17 AM CDT) Narrative Performed At Addendum Begins [facility] REPORT STATUS:A Addendum: I agree with the previously described non vascular findings.. Additionally, the lungs demonstrate fibrotic changes which are most pronounced in the bilateral bases. Biapical pleural-parenchymal scarring is present. Signed: Dejon Bland MD Report Verified Date/Time:04/20/2018 12:54:28 Reading Location: [place] [id number] Angio Body Reading Room Addendum Ends FINAL [...] For reference purpose, per [employer] radha, recommendation are as follows: CT perimeter between [...] measures 7.3 and 7.9 mm, respectively with yweh-jx-uiabiyebvlaitdihot and nocalcific atherosclerosis present. The minimum and [...] 5.An addendum will be dictated by the Waterproofing Machine Operator Radiologist regarding the nonvascular findings. Signed: Puneet Espinoza MD Report Verified Date/Time:04/19/2018 14:19:03 Reading Location: [place] [id number] Cardiology MRI Procedure Note Interface, External Ris In - 04/20/2018 12:56 PM CDT Addendum Begins REPORT STATUS:A Addendum: I agree with the previously described non vascular findings.. Additionally, the lungs demonstrate fibrotic changes which are most pronounced in the bilateral bases. Biapical pleural-parenchymal scarring is present. Signed: Dejon Bland MD Report Verified Date/Time: 04/20/2018 12:54:28 Reading Location: [facility] P048 Angio Body Reading Room Addendum Ends [...] measures 7.3 and 7.9 mm, respectively with zeux-fa-fumitexq tortuosity and no calcific atherosclerosis present. The [...] An addendum will be dictated by the Waterproofing Machine Operator Radiologist regarding the nonvascular findings. Signed: Puneet Espinoza MD Report Verified Date/Time: 04/19/2018 14:19:03 Reading Location: [place] [address] Cardiology MRI Performing Organization Address City/[facility] Phone Number [place] POC-Creatinine (04/19/2018 9:34 AM CDT) POC-Creatinine 1.3Comment: TESTED AT 0.6 - 1.3 mg/dL [facility] [address] [place] [address] POC-EGFR 52 mL/min/1.73M2 [facility] Specimen Blood Performing Organization Address City/[facility] Phone Number [facility] MEDICAL [address] [place] [address] CENTER after 10/18/2017 Insurance Payer Benefit Plan / Group Subscriber ID Type Phone Address MEDICARE MEDICARE A B xxxxxxxxxx Medicare AETNA - MGD CARE AETNA INDEMNITY NON CONTR xxxxxxxxxx Comm Advance Directives For more information, please contact:[address] [phone] Code Status Date Activated Date Inactivated Comments Full Code 05/19/2018 5:27 AM 05/30/2018 5:08 PM This code status was determined by: Patient
--- OUTSIDE RECORDS SUMMARY | 2018-10-19 11:22 | XMS REPORT ---
:1930 [facility] Address [address] [place] [address] Care Team Providers Name Role Phone TONIE [...] (BEAKER) (test 112 mg/dL 70-110 TESTED AT [address] hvbf=2883) [facility] [address] POCT-GLUCOSE [id number] 08:17:00 Test Item Value Reference Range Comments POC-GLUCOSE METER (BEAKER) 98 mg/dL 70-110 TESTED AT [address] (test codg=0985) [place] [id number] BASIC METABOLIC [id number] 06:16:00 Test Item Value Reference Range Comments SODIUM (BEAKER) (test 136 meq/L 136-145 cjdv=443) POTASSIUM (BEAKER) (test 3.7 meq/L 3.5-5.1 xddz=885) CHLORIDE (BEAKER) (test 101 meq/L 98-107 kigb=434) CO2 (BEAKER) (test 26 meq/L 22-29 odva=281) BLOOD UREA NITROGEN 28 mg/dL 7-21 (BEAKER) (test dhhg=161) CREATININE (BEAKER) (test 1.31 mg/dL 0.57-1.25 dszc=165) GLUCOSE RANDOM (BEAKER) 74 mg/dL 70-105 (test csfs=550) CALCIUM (BEAKER) (test 8.9 mg/dL 8.4-10.2 dtyp=980) EGFR (BEAKER) (test 52 mL/min/1.73 sq m ESTIMATED GFR IS NOT ufvo=3785) ACCURATE CREATININE CLEARANCE IN PREDICTING GLOMERULAR FILTRATION RATE. ESTIMATED GFR IS NOT APPLICABLE FOR DIALYSIS PATIENTS. PROTHROMBIN [id number] 05:42:00 Test Item Value Reference Range Comments PROTIME (BEAKER) (test teet=996) 22.3 seconds 11.7-14.7 INR (BEAKER) (test jfmy=445) 2.0 <=5.9 RECOMMENDED COUMADIN/WARFARIN INR THERAPY RANGESSTANDARD DOSE: 2.0 - 3.0 Includes: PROPHYLAXIS forvenous thrombosis, systemic embolization; TREATMENT for venous thrombosis and/or pulmonary embolus.HIGH RISK: Target INR is 2.5-3.5 for patients with mechanical heart valves.CBC (HEMOGRAM ONLY)2018-05-30 05:34:00 Test Item Value Reference Range Comments WHITE BLOOD CELL COUNT (BEAKER) (test fnqc=407) 10.0 K/ L 3.5-10.5 RED BLOOD CELL COUNT (BEAKER) (test tauc=371) 3.44 M/ L 4.63-6.08 HEMOGLOBIN (BEAKER) (test prnf=441) 9.6 GM/DL 13.7-17.5 HEMATOCRIT (BEAKER) (test khxl=960) 30.8 % 40.1-51.0 MEAN CORPUSCULAR VOLUME (BEAKER) (test auqb=185) 89.5 fL 79.0-92.2 MEAN CORPUSCULAR HEMOGLOBIN (BEAKER) (test 27.9 pg 25.7-32.2 lgno=771) MEAN CORPUSCULAR HEMOGLOBIN CONC (BEAKER) (test 31.2 GM/DL 32.3-36.5 dplf=123) RED CELL DISTRIBUTION WIDTH (BEAKER) (test 16.1 % 11.6-14.4 jsjq=051) PLATELET COUNT (BEAKER) (test dqoc=178) 169 K/CU MM 150-450 MEAN PLATELET VOLUME (BEAKER) (test oeei=178) 11.5 fL 9.4-12.4 NUCLEATED RED BLOOD CELLS (BEAKER) (test 0 /100 WBC 0-0 cply=977) POCT-GLUCOSE [id number] 21:35:00 Test Item Value Reference Range Comments POC-GLUCOSE METER (BEAKER) 203 mg/dL 70-110 TESTED AT [address] (test tkfs=0667) [place] [id number] POCT-GLUCOSE [id number] 16:47:00 Test Item Value Reference Range Comments POC-GLUCOSE METER (BEAKER) 177 mg/dL 70-110 TESTED AT [address] (test gotw=2737) [place] [address] POCT-GLUCOSE [id number] 12:17:00 Test Item Value Reference Range Comments POC-GLUCOSE METER (BEAKER) 139 mg/dL 70-110 TESTED AT [address] (test pqer=0743) [place] [address] POCT-GLUCOSE [id number] 08:38:00 Test Item Value Reference Range Comments POC-GLUCOSE METER (BEAKER) 83 mg/dL 70-110 TESTED AT [address] (test uozj=5207) [place] [address] PROTHROMBIN [id number] 06:39:00 Test Item Value Reference Range Comments PROTIME (BEAKER) (test aenv=798) 23.6 seconds 11.7-14.7 INR (BEAKER) (test xtdz=364) 2.1 <=5.9 RECOMMENDED COUMADIN/WARFARIN INR THERAPY RANGESSTANDARD DOSE: 2.0 - 3.0 Includes: PROPHYLAXIS forvenous thrombosis, systemic embolization; TREATMENT for venous thrombosis and/or pulmonary embolus.HIGH RISK: Target INR is 2.5-3.5 for patients with mechanical heart valves.POCT-GLUCOSE [id number] 21:31:00 Test Item Value Reference Range Comments POC-GLUCOSE METER (BEAKER) 187 mg/dL 70-110 TESTED AT [address] (test iwig=3518) [place] [address] POCT-GLUCOSE [id number] 11:55:00 Test Item Value Reference Range Comments POC-GLUCOSE METER (BEAKER) 250 mg/dL 70-110 TESTED AT [address] (test ukbd=7157) [place] [address] POCT-GLUCOSE [id number] 07:55:00 Test Item Value Reference Range Comments POC-GLUCOSE METER (BEAKER) 156 mg/dL 70-110 TESTED AT [address] (test zgvb=3821) [place] [address] [id number] 07:33:00 Test Item Value Reference Range Comments MAGNESIUM (BEAKER) (test hoeo=537) 2.3 mg/dL 1.6-2.6 PROTHROMBIN TIME/[id number] 06:33:00 Test Item Value Reference Range Comments PROTIME (BEAKER) (test sygp=121) 20.3 seconds 11.7-14.7 INR (BEAKER) (test twbk=976) 1.7 <=5.9 RECOMMENDED COUMADIN/WARFARIN INR THERAPY RANGESSTANDARD DOSE: 2.0 - 3.0 Includes: PROPHYLAXIS forvenous thrombosis, systemic embolization; TREATMENT for venous thrombosis and/or pulmonary embolus.HIGH RISK: Target INR is 2.5-3.5 for patients with mechanical heart valves.BASIC METABOLIC [id number] 21:18: 00 Test Item Value Reference Range Comments SODIUM (BEAKER) (test 137 meq/L 136-145 mvql=537) POTASSIUM (BEAKER) (test 4.1 meq/L 3.5-5.1 qefl=919) CHLORIDE (BEAKER) (test 102 meq/L 98-107 zxoh=773) CO2 (BEAKER) (test 26 meq/L 22-29 hfth=649) BLOOD UREA NITROGEN 32 mg/dL 7-21 (BEAKER) (test sukm=486) CREATININE (BEAKER) (test 1.30 mg/dL 0.57-1.25 tqji=036) GLUCOSE RANDOM (BEAKER) 95 mg/dL 70-105 (test glqz=025) CALCIUM (BEAKER) (test 9.1 mg/dL 8.4-10.2 uzkt=645) EGFR (BEAKER) (test 52 mL/min/1.73 sq m ESTIMATED GFR IS NOT qmyc=8989) ACCURATE CREATININE CLEARANCE IN PREDICTING GLOMERULAR FILTRATION RATE. ESTIMATED GFR IS NOT APPLICABLE FOR DIALYSIS PATIENTS. POCT-GLUCOSE [id number] 21:16:00 Test Item Value Reference Range Comments POC-GLUCOSE METER (BEAKER) 94 mg/dL 70-[address] [facility] [address] [facility] (test jvge=7110) [facility] [address] CBC (HEMOGRAM ONLY)2018-05-27 21:04:00 Test Item Value Reference Range Comments WHITE BLOOD CELL COUNT (BEAKER) (test ajfu=238) 11.1 K/ L 3.5-10.5 RED BLOOD CELL COUNT (BEAKER) (test jswv=146) 3.63 M/ L 4.63-6.08 HEMOGLOBIN (BEAKER) (test dtwc=076) 10.1 GM/DL 13.7-17.5 HEMATOCRIT (BEAKER) (test hong=969) 32.6 % 40.1-51.0 MEAN CORPUSCULAR VOLUME (BEAKER) (test mumi=847) 89.8 fL 79.0-92.2 MEAN CORPUSCULAR HEMOGLOBIN (BEAKER) (test 27.8 pg 25.7-32.2 yela=952) MEAN CORPUSCULAR HEMOGLOBIN CONC (BEAKER) (test 31.0 GM/DL 32.3-36.5 cbqz=741) RED CELL DISTRIBUTION WIDTH (BEAKER) (test 15.9 % 11.6-14.4 jnah=585) PLATELET COUNT (BEAKER) (test uvuh=634) 171 K/CU MM 150-450 MEAN PLATELET VOLUME (BEAKER) (test nlku=743) 11.4 fL 9.4-12.4 NUCLEATED RED BLOOD CELLS (BEAKER) (test 0 /100 WBC 0-0 ivdo=960) POCT-GLUCOSE [id number] 17:03:00 Test Item Value Reference Range Comments POC-GLUCOSE METER (BEAKER) 226 mg/dL 70-110 TESTED AT [address] (test hcdu=3103) [place] [address] POCT-GLUCOSE [id number] 11:53:00 Test Item Value Reference Range Comments POC-GLUCOSE METER (BEAKER) 154 mg/dL 70-110 TESTED AT [address] (test qksu=9177) [place] [address] POCT-GLUCOSE [id number] 07:58:00 Test Item Value Reference Range Comments POC-GLUCOSE METER (BEAKER) 78 mg/dL 70-110 TESTED AT [address] (test sgtw=9279) [place] [address] [id number] 06:27:00 Test Item Value Reference Range Comments MAGNESIUM (BEAKER) (test yygi=726) 2.1 mg/dL 1.6-2.6 PROTHROMBIN TIME/[id number] 05:53:00 Test Item Value Reference Range Comments PROTIME (BEAKER) (test dwku=233) 19.1 seconds 11.7-14.7 INR (BEAKER) (test jsrk=054) 1.6 <=5.9 RECOMMENDED COUMADIN/WARFARIN INR THERAPY RANGESSTANDARD DOSE: 2.0 - 3.0 Includes: PROPHYLAXIS forvenous thrombosis, systemic embolization; TREATMENT for venous thrombosis and/or pulmonary embolus.HIGH RISK: Target INR is 2.5-3.5 for patients with mechanical heart valves.POCT-GLUCOSE [id number] 21:34:00 Test Item Value Reference Range Comments POC-GLUCOSE METER (BEAKER) 221 mg/dL 70-110 TESTED AT [address] (test vgif=5762) [place] [address] POCT-GLUCOSE [id number] 18:12:00 Test Item Value Reference Range Comments POC-GLUCOSE METER (BEAKER) 173 mg/dL 70-110 TESTED AT [address] (test iidt=1914) [place] [address] POCT-GLUCOSE [id number] 12:42:00 Test Item Value Reference Range Comments POC-GLUCOSE METER (BEAKER) 286 mg/dL 70-110 TESTED AT [address] (test dbdl=9947) [place] [address] POCT-GLUCOSE [id number] 08:40:00 Test Item Value Reference Range Comments POC-GLUCOSE METER (BEAKER) 91 mg/dL 70-110 TESTED AT [address] (test sqlw=0064) [place] [address] [id number] 07:52:00 Test Item Value Reference Range Comments MAGNESIUM (BEAKER) (test ubnh=355) 2.2 mg/dL 1.6-2.6 PROTHROMBIN [id number] 07:30:00 Test Item Value Reference Range Comments PROTIME (BEAKER) (test uibp=695) 15.1 seconds 11.7-14.7 INR (BEAKER) (test wzot=779) 1.2 <=5.9 RECOMMENDED COUMADIN/WARFARIN INR THERAPY RANGESSTANDARD DOSE: 2.0 - 3.0 Includes: PROPHYLAXIS forvenous thrombosis, systemic embolization; TREATMENT for venous thrombosis and/or pulmonary embolus.HIGH RISK: Target INR is 2.5-3.5 for patients with mechanical heart valves.CBC W/PLT COUNT & AUTO [id number] 07:24:00 Test Item Value Reference Range Comments WHITE BLOOD CELL COUNT (BEAKER) (test sbfs=603) 12.2 K/ L 3.5-10.5 RED BLOOD CELL COUNT (BEAKER) (test tdch=928) 3.70 M/ L 4.63-6.08 HEMOGLOBIN (BEAKER) (test hoep=871) 10.6 GM/DL 13.7-17.5 HEMATOCRIT (BEAKER) (test yfto=154) 33.2 % 40.1-51.0 MEAN CORPUSCULAR VOLUME (BEAKER) (test krfv=853) 89.7 fL 79.0-92.2 MEAN CORPUSCULAR HEMOGLOBIN (BEAKER) (test 28.6 pg 25.7-32.2 owaj=733) MEAN CORPUSCULAR HEMOGLOBIN CONC (BEAKER) (test 31.9 GM/DL 32.3-36.5 boic=515) RED CELL DISTRIBUTION WIDTH (BEAKER) (test 15.9 % 11.6-14.4 zykp=348) PLATELET COUNT (BEAKER) (test lgnx=074) 137 K/CU MM 150-450 MEAN PLATELET VOLUME (BEAKER) (test gbkw=221) 11.1 fL 9.4-12.4 NUCLEATED RED BLOOD CELLS (BEAKER) (test 0 /100 WBC 0-0 momp=093) NEUTROPHILS RELATIVE PERCENT (BEAKER) (test 54 % qkjr=261) LYMPHOCYTES RELATIVE PERCENT (BEAKER) (test 33 % ujex=455) MONOCYTES RELATIVE PERCENT (BEAKER) (test 8 % xnjp=114) EOSINOPHILS RELATIVE PERCENT (BEAKER) (test 3 % vbar=754) BASOPHILS RELATIVE PERCENT (BEAKER) (test 0 % wkxp=463) NEUTROPHILS ABSOLUTE COUNT (BEAKER) (test 6.59 K/ L 1.78-5.38 xnui=708) LYMPHOCYTES ABSOLUTE COUNT (BEAKER) (test 3.96 K/ L 1.32-3.57 huto=957) MONOCYTES ABSOLUTE COUNT (BEAKER) (test 1.00 K/ L 0.30-0.82 cvrn=446) EOSINOPHILS ABSOLUTE COUNT (BEAKER) (test 0.30 K/ L 0.04-0.54 uohd=399) BASOPHILS ABSOLUTE COUNT (BEAKER) (test 0.05 K/ L 0.01-0.08 iftc=279) IMMATURE GRANULOCYTES-RELATIVE PERCENT (BEAKER) 2 % 0-1 (test xgnz=7221) POCT-GLUCOSE [id number] 22:05:00 Test Item Value Reference Range Comments POC-GLUCOSE METER (BEAKER) 122 mg/dL 70-[address] [facility] [address] (test mocl=8477) [facility] [address] BASIC METABOLIC [id number] 21:48:00 Test Item Value Reference Range Comments SODIUM (BEAKER) (test 135 meq/L 136-145 zdxz=429) POTASSIUM (BEAKER) (test 4.2 meq/L 3.5-5.1 uvdn=095) CHLORIDE (BEAKER) (test 101 meq/L 98-107 oepc=136) CO2 (BEAKER) (test 25 meq/L 22-29 dtla=620) BLOOD UREA NITROGEN 27 mg/dL 7-21 (BEAKER) (test frsw=134) CREATININE (BEAKER) (test 1.09 mg/dL 0.57-1.25 fwyg=274) GLUCOSE RANDOM (BEAKER) 139 mg/dL 70-105 (test wkno=597) CALCIUM (BEAKER) (test 9.5 mg/dL 8.4-10.2 bjuh=901) EGFR (BEAKER) (test 64 mL/min/1.73 sq m ESTIMATED GFR IS NOT rwrx=1565) ACCURATE CREATININE CLEARANCE IN PREDICTING GLOMERULAR FILTRATION RATE. ESTIMATED GFR IS NOT APPLICABLE FOR DIALYSIS PATIENTS. CBC (HEMOGRAM ONLY)2018-05-25 21:37:00 Test Item Value Reference Range Comments WHITE BLOOD CELL COUNT (BEAKER) (test glae=695) 17.3 K/ L 3.5-10.5 RED BLOOD CELL COUNT (BEAKER) (test jnmp=053) 3.84 M/ L 4.63-6.08 HEMOGLOBIN (BEAKER) (test yqzk=334) 11.0 GM/DL 13.7-17.5 HEMATOCRIT (BEAKER) (test lvvz=477) 33.5 % 40.1-51.0 MEAN CORPUSCULAR VOLUME (BEAKER) (test uqiq=266) 87.2 fL 79.0-92.2 MEAN CORPUSCULAR HEMOGLOBIN (BEAKER) (test 28.6 pg 25.7-32.2 qdga=688) MEAN CORPUSCULAR HEMOGLOBIN CONC (BEAKER) (test 32.8 GM/DL 32.3-36.5 fbtv=444) RED CELL DISTRIBUTION WIDTH (BEAKER) (test 15.8 % 11.6-14.4 pure=327) PLATELET COUNT (BEAKER) (test onur=028) 151 K/CU MM 150-450 MEAN PLATELET VOLUME (BEAKER) (test nrwh=159) 11.6 fL 9.4-12.4 NUCLEATED RED BLOOD CELLS (BEAKER) (test 0 /100 WBC 0-0 mevt=729) CT, BRAIN, WITHOUT [id number] 19:17:00FINAL REPORT CT head without contrast 05/25/2018 [...] is recommended. Signed: Micheal Boykin Verified Date/Time: 2017 19:17:21 Reading Location: [facility] Radiology Reading Room Electronicallysigned by: MICHEAL BOYKIN M.D. on 05/25/2018 07:17 PMPOCT- GLUCOSE [id number] 17:10:00 Test Item Value Reference Range Comments POC-GLUCOSE METER (BEAKER) 186 mg/dL 70-[address] [facility] [address] [facility] (test mxqc=6638) [facility] [address] POCT-GLUCOSE [id number] 11:53:00 Test Item Value Reference Range Comments POC-GLUCOSE METER (BEAKER) 152 mg/dL 70-[address] [facility] [address] [facility] (test gmmd=6063) [facility] [address] POCT-GLUCOSE [id number] 08:24:00 Test Item Value Reference Range Comments POC-GLUCOSE METER (BEAKER) 126 mg/dL 70-[address] [facility] [address] [facility] (test odab=6230) [facility] [address] BASIC METABOLIC [id number] 06:46:00 Test Item Value Reference Range Comments SODIUM (BEAKER) (test 137 meq/L 136-145 yhqm=188) POTASSIUM (BEAKER) (test 3.8 meq/L 3.5-5.1 Specimen slightly vemi=199) hemolyzed CHLORIDE (BEAKER) (test 101 meq/L 98-107 rxez=016) CO2 (BEAKER) (test 25 meq/L 22-29 mruf=608) BLOOD UREA NITROGEN 26 mg/dL 7-21 (BEAKER) (test lrck=758) CREATININE (BEAKER) (test 0.94 mg/dL 0.57-1.25 Specimen slightly ifhb=306) hemolyzed GLUCOSE RANDOM (BEAKER) 110 mg/dL 70-105 (test cutm=329) CALCIUM (BEAKER) (test 9.2 mg/dL 8.4-10.2 tlrm=479) EGFR (BEAKER) (test 76 mL/min/1.73 sq m ESTIMATED GFR IS NOT acyu=5835) ACCURATE CREATININE CLEARANCE IN PREDICTING GLOMERULAR FILTRATION RATE. ESTIMATED GFR IS NOT APPLICABLE FOR DIALYSIS PATIENTS. BLOOD [id number] 06:00:00 Test Item Value Reference Range Comments CULTURE (BEAKER) (test yuql=3778) No growth in 5 days BLOOD [id number] 06:00:00 Test Item Value Reference Range Comments CULTURE (BEAKER) (test xvzj=9603) No growth in 5 days [id number] 05:50:00 Test Item Value Reference Range Comments MAGNESIUM (BEAKER) (test 2.3 mg/dL 1.6-2.6 Specimen slightly hemolyzed hofo=881) PROTHROMBIN [id number] 05:44:00 Test Item Value Reference Range Comments PROTIME (BEAKER) (test bbjj=678) 13.8 seconds 11.7-14.7 INR (BEAKER) (test pcpv=308) 1.1 <=5.9 RECOMMENDED COUMADIN/WARFARIN INR THERAPY RANGESSTANDARD DOSE: 2.0 - 3.0 Includes: PROPHYLAXIS forvenous thrombosis, systemic embolization; TREATMENT for venous thrombosis and/or pulmonary embolus.HIGH RISK: Target INR is 2.5-3.5 for patients with mechanical heart valves.POCT-GLUCOSE [id number] 22:35:00 Test Item Value Reference Range Comments POC-GLUCOSE METER (BEAKER) 216 mg/dL 70-110 TESTED AT [address] (test mazr=2464) [facility] [address] POCT-GLUCOSE [id number] 17:10:00 Test Item Value Reference Range Comments POC-GLUCOSE METER (BEAKER) 240 mg/dL 70-110 TESTED AT [address] (test trrj=3548) [facility] [address] POCT-GLUCOSE [id number] 12:11:00 Test Item Value Reference Range Comments POC-GLUCOSE METER (BEAKER) 172 mg/dL 70-110 TESTED AT [address] (test zgsb=2680) [facility] [address] [id number] 04:19:00 Test Item Value Reference Range Comments MAGNESIUM (BEAKER) (test qcfq=686) 2.2 mg/dL 1.6-2.6 BASIC METABOLIC [id number] 04:19:00 Test Item Value Reference Range Comments SODIUM (BEAKER) (test 140 meq/L 136-145 jzto=024) POTASSIUM (BEAKER) (test 3.6 meq/L 3.5-5.1 qfgb=053) CHLORIDE (BEAKER) (test 105 meq/L 98-107 gqqy=828) CO2 (BEAKER) (test 28 meq/L 22-29 xzbd=498) BLOOD UREA NITROGEN 33 mg/dL 7-21 (BEAKER) (test oduw=251) CREATININE (BEAKER) (test 0.96 mg/dL 0.57-1.25 aein=010) GLUCOSE RANDOM (BEAKER) 128 mg/dL 70-105 (test uowd=362) CALCIUM (BEAKER) (test 9.0 mg/dL 8.4-10.2 jdrn=646) EGFR (BEAKER) (test 74 mL/min/1.73 sq m ESTIMATED GFR IS NOT zwwb=6487) ACCURATE CREATININE CLEARANCE IN PREDICTING GLOMERULAR FILTRATION RATE. ESTIMATED GFR IS NOT APPLICABLE FOR DIALYSIS PATIENTS. PROTHROMBIN [id number] 03:49:00 Test Item Value Reference Range Comments PROTIME (BEAKER) (test somv=872) 13.8 seconds 11.7-14.7 INR (BEAKER) (test gcgf=995) 1.1 <=5.9 RECOMMENDED COUMADIN/WARFARIN INR THERAPY RANGESSTANDARD DOSE: 2.0 - 3.0 Includes: PROPHYLAXIS forvenous thrombosis, systemic embolization; TREATMENT for venous thrombosis and/or pulmonary embolus.HIGH RISK: Target INR is 2.5-3.5 for patients with mechanical heart valves.While on warfarin.CBC (HEMOGRAM ONLY) 2018-05-24 03:43:00 Test Item Value Reference Range Comments WHITE BLOOD CELL COUNT (BEAKER) (test dmll=669) 8.8 K/ L 3.5-10.5 RED BLOOD CELL COUNT (BEAKER) (test anep=132) 3.23 M/ L 4.63-6.08 HEMOGLOBIN (BEAKER) (test xcey=062) 9.2 GM/DL 13.7-17.5 HEMATOCRIT (BEAKER) (test qlsu=439) 28.5 % 40.1-51.0 MEAN CORPUSCULAR VOLUME (BEAKER) (test vlvj=533) 88.2 fL 79.0-92.2 MEAN CORPUSCULAR HEMOGLOBIN (BEAKER) (test 28.5 pg 25.7-32.2 qlpl=283) MEAN CORPUSCULAR HEMOGLOBIN CONC (BEAKER) (test 32.3 GM/DL 32.3-36.5 mdyb=112) RED CELL DISTRIBUTION WIDTH (BEAKER) (test 15.0 % 11.6-14.4 ryhc=445) PLATELET COUNT (BEAKER) (test liep=638) 87 K/CU MM 150-450 MEAN PLATELET VOLUME (BEAKER) (test lgbb=358) 11.6 fL 9.4-12.4 NUCLEATED RED BLOOD CELLS (BEAKER) (test 0 /100 WBC 0-0 smrf=232) POCT-GLUCOSE [id number] 23:13:00 Test Item Value Reference Range Comments POC-GLUCOSE METER (BEAKER) 170 mg/dL 70-110 TESTED AT [address] (test sxpr=5751) [facility] [address] POCT-GLUCOSE [id number] 17:11:00 Test Item Value Reference Range Comments POC-GLUCOSE METER (BEAKER) 290 mg/dL 70-110 TESTED AT [address] (test bldj=6341) [facility] [address] CT, BRAIN, WITHOUT [id number] 15:31:00Reason for exam:->Cerebral embolizationWhat is the patient's [...] Boykin Verified Date/Time: 05/23/2018 15:31:32 Reading Location: [facility] B1 C013V Neuro Reading Room POCT-GLUCOSE [id number] 12:34:00 Test Item Value Reference Range Comments POC-GLUCOSE METER (BEAKER) 204 mg/dL 70-110 TESTED AT [address] (test fvtk=8790) [facility] [address] [id number] 08:24:00 Test Item Value Reference Range Comments FERRITIN (BEAKER) (test tsvx=531) 435 ng/mL 5-275 POCT-GLUCOSE [id number] 08:21:00 Test Item Value Reference Range Comments POC-GLUCOSE METER (BEAKER) 134 mg/dL 70-[address] [facility] [address] [facility] (test xvjz=6637) [facility] [address] IRON, TIBC, % SAT. (WITHOUT FERRITIN)2018-05-23 07:34:00 Test Item Value Reference Range Comments IRON (BEAKER) (test ahrd=237) 63 ug/dL 40-160 TOTAL IRON BINDING CAPACITY (BEAKER) (test 224 ug/dL 250-450 xrmv=121) IRON % SATURATION (2) (BEAKER) (test mqay=5631) 28 % 20-55 [id number] 06:45:00 Test Item Value Reference Range Comments PARTIAL THROMBOPLASTIN TIME (BEAKER) (test 94.3 seconds 22.5-36.0 ubju=465) [id number] 06:05:00 Test Item Value Reference Range Comments MAGNESIUM (BEAKER) (test uski=266) 2.3 mg/dL 1.6-2.6 BASIC METABOLIC [id number] 06:05:00 Test Item Value Reference Range Comments SODIUM (BEAKER) (test 138 meq/L 136-145 unle=953) POTASSIUM (BEAKER) (test 3.5 meq/L 3.5-5.1 pwpo=820) CHLORIDE (BEAKER) (test 102 meq/L 98-107 drmm=814) CO2 (BEAKER) (test 27 meq/L 22-29 yszs=829) BLOOD UREA NITROGEN 38 mg/dL 7-21 (BEAKER) (test nsyg=958) CREATININE (BEAKER) (test 1.16 mg/dL 0.57-1.25 puqd=838) GLUCOSE RANDOM (BEAKER) 118 mg/dL 70-105 (test erjb=790) CALCIUM (BEAKER) (test 8.9 mg/dL 8.4-10.2 hgnp=688) EGFR (BEAKER) (test 60 mL/min/1.73 sq m ESTIMATED GFR IS NOT xsuc=6602) ACCURATE CREATININE CLEARANCE IN PREDICTING GLOMERULAR FILTRATION RATE. ESTIMATED GFR IS NOT APPLICABLE FOR DIALYSIS PATIENTS. CBC (HEMOGRAM ONLY)2018-05-23 05:55:00 Test Item Value Reference Range Comments WHITE BLOOD CELL COUNT (BEAKER) (test cwae=910) 9.8 K/ L 3.5-10.5 RED BLOOD CELL COUNT (BEAKER) (test eeym=115) 2.77 M/ L 4.63-6.08 HEMOGLOBIN (BEAKER) (test zcii=376) 7.7 GM/DL 13.7-17.5 HEMATOCRIT (BEAKER) (test nuup=139) 24.0 % 40.1-51.0 MEAN CORPUSCULAR VOLUME (BEAKER) (test zvyt=551) 86.6 fL 79.0-92.2 MEAN CORPUSCULAR HEMOGLOBIN (BEAKER) (test 27.8 pg 25.7-32.2 vvdl=295) MEAN CORPUSCULAR HEMOGLOBIN CONC (BEAKER) (test 32.1 GM/DL 32.3-36.5 kjvv=141) RED CELL DISTRIBUTION WIDTH (BEAKER) (test 15.9 % 11.6-14.4 awaa=341) PLATELET COUNT (BEAKER) (test quok=335) 74 K/CU MM 150-450 MEAN PLATELET VOLUME (BEAKER) (test wvkv=758) 11.8 fL 9.4-12.4 NUCLEATED RED BLOOD CELLS (BEAKER) (test 0 /100 WBC 0-0 zkyp=206) [id number] 23:49:00 Test Item Value Reference Range Comments PARTIAL THROMBOPLASTIN TIME (BEAKER) (test 82.0 seconds 22.5-36.0 qpwa=182) POCT-GLUCOSE [id number] 22:25:00 Test Item Value Reference Range Comments POC-GLUCOSE METER (BEAKER) 212 mg/dL 70-110 TESTED AT [address] (test rjet=4511) [place] [address] [id number] 21:32:00 Test Item Value Reference Range Comments PARTIAL THROMBOPLASTIN TIME (BEAKER) (test 131.6 seconds 22.5-36.0 dzbw=510) POCT-GLUCOSE [id number] 17:58:00 Test Item Value Reference Range Comments POC-GLUCOSE METER (BEAKER) 296 mg/dL 70-110 TESTED AT [address] (test lfbv=7523) [place] [address] [id number] 14:27:00 Test Item Value Reference Range Comments PARTIAL THROMBOPLASTIN TIME (BEAKER) (test 96.3 seconds 22.5-36.0 paoc=080) URINE [id number] 12:50:00 Test Item Value Reference Range Comments CULTURE (BEAKER) (test qnpt=0665) No growth [id number] 12:49:00 Test Item Value Reference Range Comments PARTIAL THROMBOPLASTIN TIME (BEAKER) (test 150.3 seconds 22.5-36.0 eiwr=444) [id number] 05:53:00 Test Item Value Reference Range Comments PARTIAL THROMBOPLASTIN TIME (BEAKER) (test 44.1 seconds 22.5-36.0 vhvq=376) [id number] 03:32:00 Test Item Value Reference Range Comments PROTIME (BEAKER) (test fcmg=257) 15.0 seconds 11.7-14.7 INR (BEAKER) (test madg=545) 1.2 <=5.9 PARTIAL THROMBOPLASTIN TIME (BEAKER) (test 179.7 seconds 22.5-36.0 kzhe=664) RECOMMENDED COUMADIN/WARFARIN INR THERAPY RANGESSTANDARD DOSE: 2.0 - 3.0 Includes: PROPHYLAXIS forvenous thrombosis, systemic embolization; TREATMENT for venous thrombosis and/or pulmonary embolus.HIGH RISK: Target INR is 2.5-3.5 for patients with mechanical heart valves.[id number] 02:54:00 Test Item Value Reference Range Comments PHOSPHORUS (BEAKER) (test yght=832) 3.6 mg/dL 2.3-4.7 [id number] 02:54:00 Test Item Value Reference Range Comments MAGNESIUM (BEAKER) (test tovl=153) 2.4 mg/dL 1.6-2.6 BASIC METABOLIC [id number] 02:54:00 Test Item Value Reference Range Comments SODIUM (BEAKER) (test 138 meq/L 136-145 twgh=628) POTASSIUM (BEAKER) (test 3.7 meq/L 3.5-5.1 cijg=395) CHLORIDE (BEAKER) (test 101 meq/L 98-107 crko=224) CO2 (BEAKER) (test 27 meq/L 22-29 bkit=937) BLOOD UREA NITROGEN 44 mg/dL 7-21 (BEAKER) (test uqdt=968) CREATININE (BEAKER) (test 1.30 mg/dL 0.57-1.25 byam=983) GLUCOSE RANDOM (BEAKER) 131 mg/dL 70-105 (test dvkk=950) CALCIUM (BEAKER) (test 8.9 mg/dL 8.4-10.2 asco=278) EGFR (BEAKER) (test 52 mL/min/1.73 sq m ESTIMATED GFR IS NOT mtlf=2536) ACCURATE CREATININE CLEARANCE IN PREDICTING GLOMERULAR FILTRATION RATE. ESTIMATED GFR IS NOT APPLICABLE FOR DIALYSIS PATIENTS. VANCOMYCIN LEVEL, [id number] 02:53:00 Test Item Value Reference Range Comments VANCOMYCIN RANDOM (BEAKER) (test pafl=649) 24.4 ug/mL Reference Range: No NormalsCALCIUM, [id number] 02:49:00 Test Item Value Reference Range Comments CALCIUM IONIZED (BEAKER) (test pulc=471) 1.15 mmol/L 1.12-1.27 PH, BLOOD (BEAKER) (test zjfy=8245) 7.40 CBC (HEMOGRAM ONLY)2018-05-22 02:29:00 Test Item Value Reference Range Comments WHITE BLOOD CELL COUNT (BEAKER) (test toqn=935) 13.9 K/ L 3.5-10.5 RED BLOOD CELL COUNT (BEAKER) (test vqal=555) 2.94 M/ L 4.63-6.08 HEMOGLOBIN (BEAKER) (test zfus=763) 8.3 GM/DL 13.7-17.5 HEMATOCRIT (BEAKER) (test ydgn=895) 25.5 % 40.1-51.0 MEAN CORPUSCULAR VOLUME (BEAKER) (test ubdm=082) 86.7 fL 79.0-92.2 MEAN CORPUSCULAR HEMOGLOBIN (BEAKER) (test 28.2 pg 25.7-32.2 cbpe=862) MEAN CORPUSCULAR HEMOGLOBIN CONC (BEAKER) (test 32.5 GM/DL 32.3-36.5 uodt=851) RED CELL DISTRIBUTION WIDTH (BEAKER) (test 15.9 % 11.6-14.4 uxqe=637) PLATELET COUNT (BEAKER) (test iwle=576) 67 K/CU MM 150-450 MEAN PLATELET VOLUME (BEAKER) (test reom=308) 11.8 fL 9.4-12.4 NUCLEATED RED BLOOD CELLS (BEAKER) (test 0 /100 WBC 0-0 pywl=791) [id number] 00:28:00 Test Item Value Reference Range Comments PROTIME (BEAKER) (test pjwc=919) 15.9 seconds 11.7-14.7 INR (BEAKER) (test vyfw=013) 1.3 <=5.9 PARTIAL THROMBOPLASTIN TIME (BEAKER) (test 170.7 seconds 22.5-36.0 muia=500) RECOMMENDED COUMADIN/WARFARIN INR THERAPY RANGESSTANDARD DOSE: 2.0 - 3.0 Includes: PROPHYLAXIS forvenous thrombosis, systemic embolization; TREATMENT for venous thrombosis and/or pulmonary embolus.HIGH RISK: Target INR is 2.5-3.5 for patients with mechanical heart valves.BASIC METABOLIC [id number] 13:37: 00 Test Item Value Reference Range Comments SODIUM (BEAKER) (test 139 meq/L 136-145 gotk=131) POTASSIUM (BEAKER) (test 3.8 meq/L 3.5-5.1 cuvo=052) CHLORIDE (BEAKER) (test 101 meq/L 98-107 rjjm=612) CO2 (BEAKER) (test 26 meq/L 22-29 tyqw=090) BLOOD UREA NITROGEN 46 mg/dL 7-21 (BEAKER) (test jome=675) CREATININE (BEAKER) (test 1.60 mg/dL 0.57-1.25 lpqk=265) GLUCOSE RANDOM (BEAKER) 160 mg/dL 70-105 (test nwvg=557) CALCIUM (BEAKER) (test 9.1 mg/dL 8.4-10.2 qafb=285) EGFR (BEAKER) (test 41 mL/min/1.73 sq m ESTIMATED GFR IS NOT chfa=8543) ACCURATE CREATININE CLEARANCE IN PREDICTING GLOMERULAR FILTRATION RATE. ESTIMATED GFR IS NOT APPLICABLE FOR DIALYSIS PATIENTS. MR, MRA, BRAIN, WITHOUT [id number] 12:04:00Reason for exam:-> Ischemic Stroke EvaluationFINAL REPORT MRA Head and Neck CLINICAL HISTORY: Stroke TECHNIQUE: MRA of thehead utilizing 3-D xlvj-zx-eqediv technique, with 3-D reconstructions.MRA of the neck utilizing 2-D and 3-D time- of-flight technique, with 3-D reconstructions. COMPARISON: None FINDINGS: There is no evidence for a [place] of [place] proximal branch vessel occlusion. There [...] vertebral arteries. IMPRESSION: No evidence for a [place] of Gonzalez proximal branchvessel occlusion. No hemodynamically significant stenosis in the internal carotid arteries. 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 Signed: Jaycob Alvarado Verified Date/Time: 05/21/2018 12:04:26 Reading Location: [address] Neuro Reading Room MR, MRA, NECK, WITHOUT IV [id number] 12:04:00Reason for exam:->Ischemic Stroke EvaluationFINAL REPORT MRA Head and Neck CLINICAL HISTORY: Stroke TECHNIQUE: MRA of thehead utilizing 3-D knct-ua-rythui technique, with 3-D reconstructions.MRA of the neck utilizing 2-D and 3-D kowt-qv-sxvchy technique, with 3-D reconstructions. COMPARISON: None FINDINGS: There is no evidence for a [place] of [place] proximal branch vessel occlusion. There [...] vertebral arteries. IMPRESSION: No evidence for a [place] of Gonzalez proximal branchvessel occlusion. No hemodynamically significant stenosis in the internal carotid arteries. 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 Signed: Jaycob Alvarado Verified Date/Time: 05/21/2018 12:04:26 Reading Location: [address] Neuro Reading Room MR, BRAIN, WITHOUT [id number] 11:58:00Reason for exam:->Ischemic Stroke EvaluationFINAL REPORT MRI [...] Alvarado Verified Date/Time: 05/21/2018 11:58:08 Reading Location: [address] Neuro Reading Room RAD, CHEST, 1 VIEW, NON [id number] 10:54:00Reason for exam:->hypoxemiaShould this be performed at [...] [place] Verified Date/Time: 05/21/2018 10:54:40 Reading Location: [facility] B1 C013X Ortho Consult Reading Room HEMOGLOBIN [id number] 08:30:00 Test Item Value Reference Range Comments HEMOGLOBIN A1C (BEAKER) (test xcxv=436) 8.1 % 4.3-6.1 LIPID [id number] 07:31:00 Test Item Value Reference Range Comments TRIGLYCERIDES (BEAKER) (test ugjj=466) 348 mg/dL CHOLESTEROL (BEAKER) (test vbad=470) 208 mg/dL HDL CHOLESTEROL (BEAKER) (test ymbg=015) 26 mg/dL LDL CHOLESTEROL CALCULATED (BEAKER) (test 112 mg/dL byci=954) Triglyceride Reference Range: Low Risk <150 Borderline 150- 199 High Risk 200-499 Very High Risk >=500Cholesterol Reference Range: Low Risk <200 Borderline 200-239 High Risk > 240HDL Cholesterol Reference Range: Low Risk >=60 High Risk <40LDL Cholesterol Reference Range: Optimal <100 Near Optimal 100-129 Borderline 130-159 High 160-189 Very High >=[id number] 04:49:00 Test Item Value Reference Range Comments PHOSPHORUS (BEAKER) (test jjus=270) 6.4 mg/dL 2.3-4.7 [id number] 04:49:00 Test Item Value Reference Range Comments MAGNESIUM (BEAKER) (test btrk=868) 2.3 mg/dL 1.6-2.6 BASIC METABOLIC [id number] 04:49:00 Test Item Value Reference Range Comments SODIUM (BEAKER) (test 139 meq/L 136-145 guum=607) POTASSIUM (BEAKER) (test 3.8 meq/L 3.5-5.1 dmbd=459) CHLORIDE (BEAKER) (test 102 meq/L 98-107 myku=243) CO2 (BEAKER) (test 23 meq/L 22-29 yjhw=212) BLOOD UREA NITROGEN 49 mg/dL 7-21 (BEAKER) (test ztrg=470) CREATININE (BEAKER) (test 1.96 mg/dL 0.57-1.25 pckj=719) GLUCOSE RANDOM (BEAKER) 175 mg/dL 70-105 (test bhtz=216) CALCIUM (BEAKER) (test 8.7 mg/dL 8.4-10.2 tvxo=600) EGFR (BEAKER) (test 33 mL/min/1.73 sq m ESTIMATED GFR IS NOT hdbn=5306) ACCURATE CREATININE CLEARANCE IN PREDICTING GLOMERULAR FILTRATION RATE. ESTIMATED GFR IS NOT APPLICABLE FOR DIALYSIS PATIENTS. VITAMIN [id number] 04:11:00 Test Item Value Reference Range Comments VITAMIN B12 (BEAKER) (test psru=752) 692 pg/mL 213-816 TSH/FREE T4 IF [id number] 04:11:00 Test Item Value Reference Range Comments THYROID STIMULATING HORMONE (BEAKER) (test 0.77 uIU/mL 0.35-4.94 qixd=482) CALCIUM, [id number] 03:53:00 Test Item Value Reference Range Comments CALCIUM IONIZED (BEAKER) (test wabh=896) 1.12 mmol/L 1.12-1.27 PH, BLOOD (BEAKER) (test cdtw=4142) 7.35 CBC (HEMOGRAM ONLY)2018-05-21 03:16:00 Test Item Value Reference Range Comments WHITE BLOOD CELL COUNT (BEAKER) (test stto=952) 16.4 K/ L 3.5-10.5 RED BLOOD CELL COUNT (BEAKER) (test wlca=795) 3.61 M/ L 4.63-6.08 HEMOGLOBIN (BEAKER) (test fqms=091) 10.1 GM/DL 13.7-17.5 HEMATOCRIT (BEAKER) (test cyep=644) 32.2 % 40.1-51.0 MEAN CORPUSCULAR VOLUME (BEAKER) (test quor=649) 89.2 fL 79.0-92.2 MEAN CORPUSCULAR HEMOGLOBIN (BEAKER) (test 28.0 pg 25.7-32.2 rccz=665) MEAN CORPUSCULAR HEMOGLOBIN CONC (BEAKER) (test 31.4 GM/DL 32.3-36.5 yljk=460) RED CELL DISTRIBUTION WIDTH (BEAKER) (test 16.1 % 11.6-14.4 yerx=826) PLATELET COUNT (BEAKER) (test cldp=887) 81 K/CU MM 150-450 MEAN PLATELET VOLUME (BEAKER) (test ycxf=594) 11.0 fL 9.4-12.4 NUCLEATED RED BLOOD CELLS (BEAKER) (test 0 /100 WBC 0-0 dcbf=132) EEG AWAKE AND [id number] 15:54:00Reason for exam:->AMSDate(s) of EEDATE OF REPORT: 05/20/2018ACC: [id number] Number: [id number] Location : Inpatient ICUStart time: 14:17Stop time: 14:38ICD-10: R56.9CPT Code: 09175 HISTORY: 87 y.o. RHM w/ severe who [...] Rooney MDNeurophysiology Fellow, PGY5 Betsey Tello NeurophysiologistCHI [facility] PO[facility]- GLUCOSE [id number] 13:52:00 Test Item Value Reference Range Comments POC-GLUCOSE METER (BEAKER) 163 mg/dL 70-[address] [facility] [address] [facility] (test xtbu=0210) [facility] [address] TROPONIN [id number] 11:59:00 Test Item Value Reference Range Comments TROPONIN I (BEAKER) (test vvzw=133) 1.13 ng/mL 0.00-0.03 Troponin I (TnI) levels [...] acute neurological disease, and persistent tachyarrhythmia.COMPREHENSIVE METABOLIC [id number] 11:47:00 Test Item Value Reference Range Comments TOTAL PROTEIN (BEAKER) 5.7 gm/dL 6.0-8.3 (test iaxe=694) ALBUMIN (BEAKER) (test 3.4 g/dL 3.5-5.0 zkiu=4058) ALKALINE PHOSPHATASE 42 U/L 40-150 (BEAKER) (test mghv=983) BILIRUBIN TOTAL (BEAKER) 0.8 mg/dL 0.2-1.2 (test oejg=739) SODIUM (BEAKER) (test 139 meq/L 136-145 ncgb=610) POTASSIUM (BEAKER) (test 4.2 meq/L 3.5-5.1 mogr=895) CHLORIDE (BEAKER) (test 100 meq/L 98-107 drkq=915) CO2 (BEAKER) (test 23 meq/L 22-29 cqgc=069) BLOOD UREA NITROGEN 38 mg/dL 7-21 (BEAKER) (test jobw=405) CREATININE (BEAKER) (test 2.17 mg/dL 0.57-1.25 wadu=483) GLUCOSE RANDOM (BEAKER) 129 mg/dL 70-105 (test xezs=075) CALCIUM (BEAKER) (test 9.0 mg/dL 8.4-10.2 tvuu=625) AST (SGOT) (BEAKER) (test 27 U/L 5-34 akbe=418) ALT (SGPT) (BEAKER) (test 14 U/L 6-55 owsu=003) EGFR (BEAKER) (test 29 mL/min/1.73 sq m ESTIMATED GFR IS NOT ftwa=4827) ACCURATE CREATININE CLEARANCE IN PREDICTING GLOMERULAR FILTRATION RATE. ESTIMATED GFR IS NOT APPLICABLE FOR DIALYSIS PATIENTS. CREATINE KINASE (CK), TOTAL AND [id number] 11:42:00 Test Item Value Reference Range Comments CREATINE KINASE TOTAL (BEAKER) (test bmsl=832) 138 U/L 29-200 CREATINE KINASE-MB (BEAKER) (test oufa=282) 4.2 ng/mL 0.0-6.6 CREATINE KINASE-MB INDEX (BEAKER) (test vebc=375) 3.0 % CK-MB Reference Range:<6.7 Normal6.7-10.0 Borderline>10.0 [id number] 11:36:00 Test Item Value Reference Range Comments PHOSPHORUS (BEAKER) (test xmok=692) 5.4 mg/dL 2.3-4.7 [id number] 11:36:00 Test Item Value Reference Range Comments MAGNESIUM (BEAKER) (test ywck=332) 2.3 mg/dL 1.6-2.6 RAD, ABDOMEN/KUB, 1 VIEW [id number] 11:33:00Reason for exam:->Nasogastric tube insertionShould this be performed at the bedside?->YesFINAL REPORT Abdomen one view INDICATION: Nasogastric tube insertion COMPARISON: None available IMPRESSION: NG tube extends to the gastric body. The imaged bowel gas pattern is nonspecific. There are degenerative spine changes and incidental vascular calcifications. The imaged chest is similar to 2017. Signed: Kenan [place] Verified Date/Time: 05/20/2018 11: 33:02 Reading Location: [facility] Radiology Reading Room LACTIC ACID, VENOUS, WHOLE [id number] 11:32:00 Test Item Value Reference Range Comments LACTATE BLOOD VENOUS (2) (BEAKER) (test 2.1 mmol/L 0.5-2.2 wibl=6538) Effective 04/02/2016: Units/Reference Range ChangeNew: 0.5-2.2 mmol/L Previous: 5 -20 mg/dLBLOOD GAS, [id number] 11:21:00 Test Item Value Reference Range Comments PH VENOUS (BEAKER) (test vqko=183) 7.40 7.32-7.42 PCO2 VENOUS (BEAKER) (test ftws=414) 45 mmHg 41-51 PO2 VENOUS (BEAKER) (test xnbb=572) 26 mmHg 25-40 O2 SATURATION VENOUS (BEAKER) (test isjm=994) 46.3 % 40.0-70.0 HCO3 VENOUS (BEAKER) (test lbkz=994) 27 mmol/L 21-29 BASE EXCESS VENOUS (BEAKER) (test cofz=256) 1.8 mmol/L -2.0-3.0 PATIENT TEMPERATURE (BEAKER) (test owiq=4010) 36.9 C FIO2 (BEAKER) (test litb=1238) 36.0 % BASIC METABOLIC [id number] 05:05:00 Test Item Value Reference Range Comments SODIUM (BEAKER) (test 140 meq/L 136-145 vutp=355) POTASSIUM (BEAKER) (test 3.9 meq/L 3.5-5.1 Specimen slightly bxss=498) hemolyzed CHLORIDE (BEAKER) (test 105 meq/L 98-107 ihvt=835) CO2 (BEAKER) (test 21 meq/L 22-29 vhyj=964) BLOOD UREA NITROGEN 31 mg/dL 7-21 (BEAKER) (test dgua=142) CREATININE (BEAKER) (test 1.63 mg/dL 0.57-1.25 Specimen slightly cbed=589) hemolyzed GLUCOSE RANDOM (BEAKER) 124 mg/dL 70-105 (test uyyc=402) CALCIUM (BEAKER) (test 8.0 mg/dL 8.4-10.2 uzng=242) EGFR (BEAKER) (test 40 mL/min/1.73 sq m ESTIMATED GFR IS NOT bwhj=7107) ACCURATE CREATININE CLEARANCE IN PREDICTING GLOMERULAR FILTRATION RATE. ESTIMATED GFR IS NOT APPLICABLE FOR DIALYSIS PATIENTS. CBC (HEMOGRAM ONLY)2018-05-20 04:44:00 Test Item Value Reference Range Comments WHITE BLOOD CELL COUNT (BEAKER) (test wfho=736) 16.5 K/ L 3.5-10.5 RED BLOOD CELL COUNT (BEAKER) (test fdkb=111) 3.86 M/ L 4.63-6.08 HEMOGLOBIN (BEAKER) (test rdrn=374) 10.6 GM/DL 13.7-17.5 HEMATOCRIT (BEAKER) (test yppq=710) 34.3 % 40.1-51.0 MEAN CORPUSCULAR VOLUME (BEAKER) (test egdr=477) 88.9 fL 79.0-92.2 MEAN CORPUSCULAR HEMOGLOBIN (BEAKER) (test 27.5 pg 25.7-32.2 tike=675) MEAN CORPUSCULAR HEMOGLOBIN CONC (BEAKER) (test 30.9 GM/DL 32.3-36.5 szpl=961) RED CELL DISTRIBUTION WIDTH (BEAKER) (test 16.2 % 11.6-14.4 mbbe=664) PLATELET COUNT (BEAKER) (test xxgs=735) 103 K/CU MM 150-450 MEAN PLATELET VOLUME (BEAKER) (test tbpx=419) 11.2 fL 9.4-12.4 NUCLEATED RED BLOOD CELLS (BEAKER) (test 0 /100 WBC 0-0 hhaq=864) URINALYSIS W/ [id number] 00:09:00 Test Item Value Reference Range Comments COLOR (BEAKER) (test yndh=726) Yellow CLARITY (BEAKER) (test awvz=372) Clear SPECIFIC GRAVITY UA (BEAKER) (test egbw=242) 1.017 1.001-1.035 PH UA (BEAKER) (test sauq=495) 5.0 5.0-8.0 PROTEIN UA (BEAKER) (test teii=861) Negative Negative GLUCOSE UA (BEAKER) (test ktys=457) Negative Negative KETONES UA (BEAKER) (test ijut=533) Negative Negative BILIRUBIN UA (BEAKER) (test jaup=814) Negative Negative BLOOD UA (BEAKER) (test btmi=644) Small Negative NITRITE UA (BEAKER) (test joxz=445) Negative Negative LEUKOCYTE ESTERASE UA (BEAKER) (test hayc=998) Negative Negative UROBILINOGEN UA (BEAKER) (test nukf=301) 0.2 mg/dL 0.2-1.0 RBC UA (BEAKER) (test xowu=084) 12 /HPF WBC UA (BEAKER) (test qzmv=243) 1 /HPF MUCUS (BEAKER) (test cqrw=1688) Rare AMORPHOUS CRYSTALS (BEAKER) (test xmws=3161) Occasional SOURCE(BEAKER) (test euif=4607) Urine, [place] RAD, CHEST, 1 VIEW, NON [id number] 21:46:00Reason for exam:->tavrShould this be performed at the bedside?->YesFINAL REPORT INDICATION: tavr COMPARISON: None. TECHNIQUE: Chest radiograph, single view, portable technique. 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 Intact median sternotomy wires noted. No pulmonary edema, aspiration, pneumothorax, or pleural effusion demonstrated. Signed: Vladislav Michael [facility] Verified Date/Time: 05/19/2018 21:46:23 Reading Location: [address] Consult Reading Room POCT-LACTIC ACID, [id number] 21:21:00 Test Item Value Reference Range Comments POC-LACTIC ACID, ARTERIAL 1.5 mmol/L 0.4-1.3 TESTED [address] (BEAKER) (test zkue=2885) [place] [id number] POCT-BLOOD GASES, [id number] 21:21:00 Test Item Value Reference Range Comments TEMP, CELSIUS-POC (BEAKER) 37.1 (test ylpu=9947) FIO2-POC (BEAKER) (test 29 TESTED AT [address] jszg=3939) [place] [address] PH, ARTERIAL-POC (BEAKER) 7.468 7.350-7.450 (test ddrr=1722) PCO2, ARTERIAL-POC (BEAKER) 34.4 mm Hg 35.0-45.0 (test ggtv=8749) PO2, ARTERIAL-POC (BEAKER) 63.0 mm Hg 80.0-90.0 (test anlu=7955) SO2, ARTERIAL-POC (BEAKER) 93.0 % 96.0-97.0 (test fraz=1628) HCO3, ARTERIAL-POC (BEAKER) 24.9 meq/L 21.0-29.0 (test bnpw=2485) BASE EXCESS, ARTERIAL-POC 1.0 meq/L -2.0-3.0 (BEAKER) (test jsox=3511) [id number] 21:21:00 Test Item Value Reference Range Comments POC-SODIUM (BEAKER) (test 137 meq/L 135-148 TESTED AT [address] ummx=4980) [place] [address] [id number] 21:21:00 Test Item Value Reference Range Comments POC-POTASSIUM (BEAKER) (test 3.6 meq/L 3.6-5.5 TESTED AT [address] zxoz=4566) [place] [address] [id number] 21:21:00 Test Item Value Reference Range Comments POC-GLUCOSE (BEAKER) (test 152 mg/dL 70-110 TESTED AT [address] jioj=7346) [place] [address] POCT-CALCIUM [id number] 21:21:00 Test Item Value Reference Range Comments POC-CALCIUM IONIZED (BEAKER) 1.19 mmol/L 1.12-1.27 TESTED AT [address] (test acbc=2286) [place] [address] [id number] 21:21:00 Test Item Value Reference Range Comments POC-HEMATOCRIT (BEAKER) (test 32 % 40-50 TESTED AT [address] tmja=7441) [place] [address] [id number] 21:21:00 Test Item Value Reference Range Comments POC-HEMOGLOBIN (BEAKER) 10.9 g/dL 13.0-16.8 TESTED AT [address] (test htik=1735) [place] [address]TESTED AT [place] [address] TROPONIN [id number] 20:56:00 Test Item Value Reference Range Comments TROPONIN I (BEAKER) (test uulj=295) 0.73 ng/mL 0.00-0.03 Troponin I (TnI) levels [...] and persistent tachyarrhythmia.CREATINE KINASE (CK), TOTAL AND [id number] 20:49:00 Test Item Value Reference Range Comments CREATINE KINASE TOTAL (BEAKER) (test rhoq=392) 41 U/L 29-200 CREATINE KINASE-MB (BEAKER) (test gymg=272) 3.5 ng/mL 0.0-6.6 CREATINE KINASE-MB INDEX (BEAKER) (test uqhk=698) 8.5 % CK-MB Reference Range:<6.7 Normal6.7-10.0 Borderline>10.0 AbnormalCT, BRAIN/STROKE [id number] 20:46:00Reason for exam:-> altered mental statusFINAL REPORT [...] [place] Verified Date/Time: 05/19/2018 20:46:09 Reading Location: [facility] Radiology Reading Room [facility] METABOLIC [id number] 20: 42:00 Test Item Value Reference Range Comments SODIUM (BEAKER) (test 138 meq/L 136-145 lode=057) POTASSIUM (BEAKER) (test 3.8 meq/L 3.5-5.1 esbj=407) CHLORIDE (BEAKER) (test 100 meq/L 98-107 ardw=075) CO2 (BEAKER) (test 26 meq/L 22-29 vtpd=402) BLOOD UREA NITROGEN 27 mg/dL 7-21 (BEAKER) (test hbwp=790) CREATININE (BEAKER) (test 1.41 mg/dL 0.57-1.25 hhoc=443) GLUCOSE RANDOM (BEAKER) 146 mg/dL 70-105 (test febx=683) CALCIUM (BEAKER) (test 8.7 mg/dL 8.4-10.2 spux=808) EGFR (BEAKER) (test 48 mL/min/1.73 sq m ESTIMATED GFR IS NOT ipit=5908) ACCURATE CREATININE CLEARANCE IN PREDICTING GLOMERULAR FILTRATION RATE. ESTIMATED GFR IS NOT APPLICABLE FOR DIALYSIS PATIENTS. [id number] 20:32:00 Test Item Value Reference Range Comments PROTIME (BEAKER) (test ktjr=479) 14.2 seconds 11.7-14.7 INR (BEAKER) (test dzfu=384) 1.1 <=5.9 PARTIAL THROMBOPLASTIN TIME (BEAKER) (test 31.4 seconds 22.5-36.0 jgvf=398) RECOMMENDED COUMADIN/WARFARIN INR THERAPY RANGESSTANDARD DOSE: 2.0 - 3.0 Includes: PROPHYLAXIS forvenous thrombosis, systemic embolization; TREATMENT for venous thrombosis and/or pulmonary embolus.HIGH RISK: Target INR is 2.5-3.5 for patients with mechanical heart valves.CBC W/PLT COUNT & AUTO [id number] 20:30:00 Test Item Value Reference Range Comments WHITE BLOOD CELL COUNT (BEAKER) (test dade=433) 12.5 K/ L 3.5-10.5 RED BLOOD CELL COUNT (BEAKER) (test mwpk=011) 3.77 M/ L 4.63-6.08 HEMOGLOBIN (BEAKER) (test tyvh=736) 10.4 GM/DL 13.7-17.5 HEMATOCRIT (BEAKER) (test oefo=975) 34.1 % 40.1-51.0 MEAN CORPUSCULAR VOLUME (BEAKER) (test ckrz=436) 90.5 fL 79.0-92.2 MEAN CORPUSCULAR HEMOGLOBIN (BEAKER) (test 27.6 pg 25.7-32.2 ybsa=978) MEAN CORPUSCULAR HEMOGLOBIN CONC (BEAKER) (test 30.5 GM/DL 32.3-36.5 wogc=481) RED CELL DISTRIBUTION WIDTH (BEAKER) (test 16.4 % 11.6-14.4 podt=725) PLATELET COUNT (BEAKER) (test enbr=875) 116 K/CU MM 150-450 MEAN PLATELET VOLUME (BEAKER) (test mtix=706) 10.6 fL 9.4-12.4 NUCLEATED RED BLOOD CELLS (BEAKER) (test 0 /100 WBC 0-0 zlqq=375) NEUTROPHILS RELATIVE PERCENT (BEAKER) (test 74 % bspx=123) LYMPHOCYTES RELATIVE PERCENT (BEAKER) (test 18 % nnyj=957) MONOCYTES RELATIVE PERCENT (BEAKER) (test 6 % gamx=283) EOSINOPHILS RELATIVE PERCENT (BEAKER) (test 1 % oqxx=552) BASOPHILS RELATIVE PERCENT (BEAKER) (test 0 % auty=992) NEUTROPHILS ABSOLUTE COUNT (BEAKER) (test 9.27 K/ L 1.78-5.38 emcr=631) LYMPHOCYTES ABSOLUTE COUNT (BEAKER) (test 2.24 K/ L 1.32-3.57 ptus=687) MONOCYTES ABSOLUTE COUNT (BEAKER) (test 0.73 K/ L 0.30-0.82 svic=202) EOSINOPHILS ABSOLUTE COUNT (BEAKER) (test 0.13 K/ L 0.04-0.54 oqpz=154) BASOPHILS ABSOLUTE COUNT (BEAKER) (test 0.03 K/ L 0.01-0.08 lvbl=478) IMMATURE GRANULOCYTES-RELATIVE PERCENT (BEAKER) 1 % 0-1 (test fgfr=2537) POCT-GLUCOSE [id number] 20:01:00 Test Item Value Reference Range Comments POC-GLUCOSE METER (BEAKER) 182 mg/dL 70-[address] [facility] [address] [facility] (test bmrd=2082) [facility] [address] [id number] 09:06:00 Test Item Value Reference Range Comments ACTIVATED CLOTTING TIME [address] [facility] [address] [facility] (BEAKER) (test njim=629) [facility] [address] B-TYPE NATRIURETIC FACTOR (BNP)2018-04-21 15:09:00 Test Item Value Reference Range Comments B-TYPE NATRIURETIC PEPTIDE (BEAKER) (test 785 pg/mL 0-100 lajk=959) COMPREHENSIVE METABOLIC [id number] 15:02:00 Test Item Value Reference Range Comments TOTAL PROTEIN (BEAKER) 6.9 gm/dL 6.0-8.3 (test byvs=650) ALBUMIN (BEAKER) (test 4.0 g/dL 3.5-5.0 rdqw=3207) ALKALINE PHOSPHATASE 42 U/L 40-150 (BEAKER) (test whxs=064) BILIRUBIN TOTAL (BEAKER) 0.5 mg/dL 0.2-1.2 (test rgou=809) SODIUM (BEAKER) (test 135 meq/L 136-145 xqgb=651) POTASSIUM (BEAKER) (test 4.3 meq/L 3.5-5.1 axwm=009) CHLORIDE (BEAKER) (test 99 meq/L 98-107 mteq=948) CO2 (BEAKER) (test 25 meq/L 22-29 uixj=867) BLOOD UREA NITROGEN 31 mg/dL 7-21 (BEAKER) (test ngri=657) CREATININE (BEAKER) (test 1.39 mg/dL 0.57-1.25 hyro=049) GLUCOSE RANDOM (BEAKER) 194 mg/dL 70-105 (test wktf=621) CALCIUM (BEAKER) (test 9.7 mg/dL 8.4-10.2 ecbf=027) AST (SGOT) (BEAKER) (test 12 U/L 5-34 kpdb=498) ALT (SGPT) (BEAKER) (test 15 U/L 6-55 xwof=126) EGFR (BEAKER) (test 48 mL/min/1.73 sq m ESTIMATED GFR IS NOT zigf=1667) ACCURATE CREATININE CLEARANCE IN PREDICTING GLOMERULAR FILTRATION RATE. ESTIMATED GFR IS NOT APPLICABLE FOR DIALYSIS PATIENTS. PROTHROMBIN [id number] 14:58:00 Test Item Value Reference Range Comments PROTIME (BEAKER) (test xntb=943) 12.8 seconds 11.7-14.7 INR (BEAKER) (test flru=456) 1.0 <=5.9 RECOMMENDED COUMADIN/WARFARIN INR THERAPY RANGESSTANDARD DOSE: 2.0 - 3.0 Includes: PROPHYLAXIS forvenous thrombosis, systemic embolization; TREATMENT for venous thrombosis and/or pulmonary embolus.HIGH RISK: Target INR is 2.5-3.5 for patients with mechanical heart valves.CBC W/PLT COUNT & AUTO [id number] 14:45:00 Test Item Value Reference Range Comments WHITE BLOOD CELL COUNT (BEAKER) (test hfvj=527) 10.3 K/ L 3.5-10.5 RED BLOOD CELL COUNT (BEAKER) (test ufup=545) 4.35 M/ L 4.63-6.08 HEMOGLOBIN (BEAKER) (test aehh=360) 11.9 GM/DL 13.7-17.5 HEMATOCRIT (BEAKER) (test ufmb=571) 37.6 % 40.1-51.0 MEAN CORPUSCULAR VOLUME (BEAKER) (test uvjb=247) 86.4 fL 79.0-92.2 MEAN CORPUSCULAR HEMOGLOBIN (BEAKER) (test 27.4 pg 25.7-32.2 vkrw=092) MEAN CORPUSCULAR HEMOGLOBIN CONC (BEAKER) (test 31.6 GM/DL 32.3-36.5 jxbz=069) RED CELL DISTRIBUTION WIDTH (BEAKER) (test 16.5 % 11.6-14.4 pufg=661) PLATELET COUNT (BEAKER) (test vcfm=708) 158 K/CU MM 150-450 MEAN PLATELET VOLUME (BEAKER) (test yoxc=192) 11.1 fL 9.4-12.4 NUCLEATED RED BLOOD CELLS (BEAKER) (test 0 /100 WBC 0-0 qfzo=429) NEUTROPHILS RELATIVE PERCENT (BEAKER) (test 73 % qflt=021) LYMPHOCYTES RELATIVE PERCENT (BEAKER) (test 19 % llsn=421) MONOCYTES RELATIVE PERCENT (BEAKER) (test 6 % havl=958) EOSINOPHILS RELATIVE PERCENT (BEAKER) (test 1 % znqq=187) BASOPHILS RELATIVE PERCENT (BEAKER) (test 0 % fsgo=491) NEUTROPHILS ABSOLUTE COUNT (BEAKER) (test 7.54 K/ L 1.78-5.38 ilew=125) LYMPHOCYTES ABSOLUTE COUNT (BEAKER) (test 1.96 K/ L 1.32-3.57 wjly=543) MONOCYTES ABSOLUTE COUNT (BEAKER) (test 0.61 K/ L 0.30-0.82 taye=350) EOSINOPHILS ABSOLUTE COUNT (BEAKER) (test 0.09 K/ L 0.04-0.54 iysl=742) BASOPHILS ABSOLUTE COUNT (BEAKER) (test 0.03 K/ L 0.01-0.08 xeoo=405) IMMATURE GRANULOCYTES-RELATIVE PERCENT (BEAKER) 1 % 0-1 (test nexd=9301) CT, CTA [id number] 12:54:00Addendum BeginsREPORT STATUS:A Addendum: I agree with the previously described non vascular findings.. Additionally, the lungs demonstrate fibrotic changes which are most pronounced in the bilateral bases. Biapical pleural-parenchymal scarring is present. Signed: Dejon BlandMDReport Verified Date/Time: 04/20/2018 12:54: 28 Reading Location: [place] [address] Angio Body Reading RoomAddendum EndsFINAL REPORT CT [...] 5. An addendum will be dictated bythe [employer] Radiologist regarding the nonvascular findings. Signed: Puneet Espinoza Verified Date/Time: 14:19:03 Reading Location: [place] [address], CTA, [id number] 12:54:00Addendum BeginsREPORT STATUS:A Addendum: I agree with the previously described non vascular findings.. Additionally, the lungs demonstrate fibrotic changes which are most pronounced in the bilateral bases. Biapical pleural-parenchymal scarring is present. Signed : Dejon BlandMDReport Verified Date/Time: 04/20/2018 12:54:28 Reading Location: [place] [address] Angio Body Reading RoomAddendum EndsFINAL REPORT CT [...] 5. An addendum will be dictated bythe Car Rider Radiologist regarding the nonvascular findings. Signed: Puneet Espinoza MDReport Verified Date/Time: 14:19:03 Reading Location: [place] [address] Cardiology MRI POCT- [id number] 09:37:00 Test Item Value Reference Range Comments POC-CREATININE (Contrib) 1.3 mg/dL 0.6-1.[address] [facility] [address] [place] [address] (test ydin=0856) [facility] [address] POC-EGFR (Contrib) (test 52 mL/min/1.73M2 xnmc=3506)
[2018-10-19] MEDS ORDERED: LIDOCAINE 1% MPF 30 ML VIAL ONE (11:48)
[2018-10-19] MEDS ORDERED: TETANUS & DIPHTHERIA TOX,ADULT 0.5 ML VIAL ONE (11:48)
--- NOTE | 2018-10-19 12:03 | RAD REPORT ---
EXAM DESCRIPTION: CT - CTFB CLINICAL HISTORY: FALL Trauma, facial pain and swelling. COMPARISON: No comparisons TECHNIQUE: Axial 2 mm thick images of the face were obtained with sagittal and coronal reconstructio n images. All CT scans are performed using dose optimization technique as appropriate and may include automated exposure control or mA/KV adjustment according to patient size. FINDINGS: No acute facial bone fracture is seen.The mandible is intact. The globes and orbital contents are grossly unremarkable.Hyperostosis of multiple paranasal sinuses w ith postsurgical changes present likely attributable to history chronic sinusitis. IMPRESSION: Negative for facial bone fracture.
--- NOTE | 2018-10-19 12:08 | RAD REPORT ---
EXAM DESCRIPTION: CT - Spine Lumbar Wo Con - 10/19/2018 11:46 am CLINICAL HISTORY: Radiculopathy.Trauma FALL COMPARISON: No comparisons TECHNIQUE: Axial noncontrast CT imaging of the lumbar spine was performed with coronal and sagittal re-formatted images. All CT scans are performed using dose optimization technique as appropriate and may include automated exposure control or mA/KV adjustment according to patient size. FINDINGS: The bones are osteoporotic. No acute lumbar spine fracture seen. No aggressive marrow cecil adam or malalignment. Paraspinal tissues are normal in thickness. No paraspinal abscess or hematoma seen. Prominent spondylosis is present at L1-2, L2-3 and L5-S1 with vacuum disc degeneration. Incidental no te is made of gallstones in the gallbladder. IMPRESSION: No acute lumbar spine finding is identified. Moderate multilevel spondylosis.
--- NOTE | 2018-10-19 12:13 | RAD REPORT ---
EXAM DESCRIPTION: CT - CTHCSPWOC - 10/19/2018 11:45 am CLINICAL HISTORY: Trauma, head and neck injury. FALL COMPARISON: Head C Spine Mpr Wo Con dated 08/21/2018; Head C Spine Mpr Wo Con dated 07/11/2018; Head C Spine Mpr Wo Con dated 01/18/2017 TECHNIQUE: Axial 5 mm thick images of the head were obtained. Axial 2 mm thick images of the cervical spine were obtained with sagittal and coronal reconstruction images generated and reviewed. All CT scans are performed using dose optimization technique as appropriate and may include automated exposure control or mA/KV adjustment according to patient size. FINDINGS: CT HEAD WITHOUT CONTRAST: No acute hemorrhage, hydrocephalus or extra-axial collection is identified.Moderate generalized brain atrophy is present with moderate periventricular and deep white matter chronic microvascular ischemi c changes.No areas of brain edema or midline shift. Bony hyperostosis with postsurgical changes present and mild mucosal thickening involves the paranasa l sinuses, greatest in the region of the maxillary antra.The calvarium is intact. CT CERVICAL SPINE WITHOUT CONTRAST: No fracture or subluxation.Multilevel spondylosis of the cervical spine is present with disc thinning and posterior osteophytosis.No prevertebral soft tissues swelling is identified. Atherosclerotic vas cular calcifications also present. IMPRESSION: No acute intracranial or cervical spine findings. Multilevel cervical degenerative changes.
--- NOTE | 2018-10-19 12:35 | RAD REPORT ---
EXAM DESCRIPTION: RAD - Pelvis - 10/19/2018 12:16 pm CLINICAL HISTORY: BLUNT TRAUMA Fall, trauma, pain COMPARISON: No comparisons FINDINGS: Mild diffuse osteopenia. Mild arthritic changes affect both hips. No acute fractures demon strated. Vascular calcifications evident. IMPRESSION: No acute abnormality detected.
--- NOTE | 2018-10-19 12:38 | RAD REPORT ---
EXAM DESCRIPTION: RAD - Chest Single View - 10/19/2018 12:16 pm CLINICAL HISTORY: BLUNT CHEST TRAUMA Chest pain. COMPARISON: Chest Single View dated 07/11/2018; Chest Single View dated 02/13/2018; Chest Single View dated 11/12/2017; Chest Single View dated 07/30/2017 FINDINGS: Portable technique limits examination quality. The lungs are mildly emphysematous but clear. Chronic left pleural thickening versus small pleural ef fusion. The heart is normal in size. No displaced fractures.Sternotomy wires noted. IMPRESSION: Mild COPD. Small pleural effusion versus pleural thickening on the left.
[2018-10-19 12:49] LABS: Absolute Lymphocytes (CBC) 1.4 K/uL (0.7-4.9); Absolute Monocytes 0.4 K/uL (0.1-1.3); Absolute Neutrophil 9.2 K/uL (1.8-8.0); Basophils % 0.1 % (0-1.3); Eosinophils % 0.2 % (0-4.4); Hematocrit 34.8 % (39.6-49.0); Lymphocytes % 12.4 % (15.3-44.8); MCH 24.5 pg (27.0-35.0); MCV 75.2 fL (80-100); MPV 9.2 fL (7.6-11.3); Monocytes % 3.7 % (3.3-12.3); RBC Red Blood Cell Count 4.63 M/uL (4.33-5.43)
--- NOTE | 2018-10-19 14:05 | ER ---
Nurse's Notes [facility] Name: Victor Hugo Damon Age: 88 yrs Sex: Male : 1930 Arrival Date: 10/19/2018 Time: 11:18 Bed 2 Private MD: Diagnosis: Fall (on)(from) sidewalk curb Presentation: 10/19 11:19 Presenting complaint: EMS states: Tripped on concrete while ambulating with walker. hb Laceration to forehead and skin tears to left lower arm noted, bleeding controlled. Pt c/o low back pain 05/09. Negative LOC, takes Coumadin. Care prior to arrival: Bleeding of injury controlled. Injury dressed. Mechanism of Injury: Fall from standing position. Trauma event details: Injury occurred in the [facility], Injury occurred: at home. Injury occurred: October 19, 2018. 11:19 Acuity: ESTHELA 2 hb 11:19 Method Of Arrival: EMS: [facility] hb 11:22 Transition of care: patient was not received from another setting of care. Onset of hb symptoms was October 19, 2018. Risk Assessment: Do you want to hurt yourself or someone else? Patient reports no desire to harm self or others. Initial Sepsis Screen: Does the patient meet any 2 criteria? No. Patient's initial sepsis screen is negative. Does the patient have a suspected source of infection? No. Patient's initial sepsis screen is negative. Trauma Activation: Alert Physician: ED Physician; Name: ; Notified At: ; Arrived At: Physician: General Surgeon; Name: ; Notified At: ; Arrived At: Physician: Radiology; Name: ; Notified At: ; Arrived At: Physician: Respiratory; Name: ; Notified At: ; Arrived At: Physician: Lab; Name: ; Notified At: ; Arrived At: Historical: - Allergies: 11:27 PENICILLINS; hb - Home Meds: 11:27 acetaminophen 325 mg Oral tab 2 tabs every 4 hours for Pain [Active]; amlodipine 5 mg hb tab 1 tab once daily [Active]; aspirin 81 mg Oral TbEC 1 tab once daily [Active]; bisacodyl 5 mg Oral TbEC 1 tab once daily [Active]; carvedilol 25 mg Oral tab 1 tab 2 times per day [Active]; clopidogrel 75 mg Oral tab 1 tab once daily [Active]; losartan 50 mg Oral tab 1 tab once daily [Active]; melatonin 3 mg Oral tab nightly [Active]; Myrbetriq 25 mg Oral Tb24 1 tab once daily [Active]; Myrbetriq 25 mg Oral Tb24 1 tab once daily [Active]; nifedipine 30 mg Oral TbER 2 tabs once daily [Active]; Nifedipine ER Oral 30 mg twice a day [Active]; potassium chloride 10 mEq Oral cpER 1 cap once daily [Active]; prednisone 20 mg Oral tab 1 tab once daily [Active]; torsemide 20 mg Oral tab 1 tab once daily [Active]; torsemide 10 mg Oral tab 1 tab once daily [Active]; warfarin 5 mg Oral tab 1 tab once daily [Active]; - PMHx: 11:27 Atrial Fib; CVA; Diabetes - NIDDM; Hypertension; hb - PSHx: 11:27 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 - Social history:: Smoking status: Patient/guardian denies using tobacco, Patient/guardian denies using alcohol, street drugs, The patient lives with family. - Immunization history: Last tetanus immunization: < 10 years ago. - Ebola Screening: : No symptoms or risks identified at this time. - Family history:: not pertinent, pertinent for. - Hospitalizations: : No recent hospitalization is reported. Screenin:24 Abuse screen: Denies threats or abuse. Denies injuries from another. Tuberculosis hb screening: No symptoms or risk factors identified. 11:36 Nutritional screening: No deficits noted. Fall Risk Total Handy Fall Scale indicates hb High Risk Score (45 or more points). Fall prevention measures have been instituted. Side Rails Up X 2 Frequent Obs/Assessments Occuring As available patient and family educated on Fall Prevention Program and Strategies. Primary Survey: 11:20 A: Airway: patent, No supplemental oxygen in use on arrival. Oral cavity: clear. hb Breathing/Chest: Respiratory pattern: regular, Respiratory effort: spontaneous, unlabored, Breath sounds: clear, bilaterally. Chest inspection: symmetrical rise and fall of the chest. Circulation: Skin color: pink, Skin temperature: warm, dry. Disability Alert. 12:15 Reassessment Airway Airway Patent Breathing/Chest Respiratory pattern Regular hb Respiratory effort Spontaneous Unlabored Chest inspection Symmetrical Circulation Color [place] Temperature Warm Dry Disability Alert. 13:15 Reassessment Airway Airway Patent Breathing/Chest Respiratory pattern Regular hb Respiratory effort Spontaneous Unlabored Chest inspection Symmetrical Circulation Color [place] Temperature Warm Dry Disability Alert. Secondary Survey: 11:20 HEENT: Face Other laceration to right forehead noted. Gastrointestinal: No deficits hb noted. : No signs and/or symptoms were reported regarding the genitourinary system. Musculoskeletal: Reports low back pain. Injury Description: skin tears to left forearm x 3, laceration to right forehead. Assessment: 11:25 General: Appears in no apparent distress. Behavior is calm, cooperative. Pain: Pain hb currently is 6 out of 10 on a pain scale. Neuro: Level of Consciousness is awake, alert, obeys commands, Oriented to person, place, time, situation. EENT: No signs and/or symptoms were reported regarding the EENT system. Cardiovascular: Heart tones S1 S2 present Capillary refill < 3 seconds Patient's skin is warm and dry. Respiratory: Airway is patent Trachea midline Respiratory effort is even, unlabored, Respiratory pattern is regular, symmetrical, Breath sounds are clear bilaterally. GI: No signs and/or symptoms were reported involving the gastrointestinal system. : No signs and/or symptoms were reported regarding the genitourinary system. Derm: Skin Skin is pink, warm \T\ dry. Musculoskeletal: Reports low back pain. Injury Description: skin tears x 3 to left forearm, laceration to right forehead. 12:15 Reassessment: Patient appears in no apparent distress at this time. No changes from hb previously documented assessment. Patient and/or family updated on plan of care and expected duration. Pain level reassessed. Patient is alert, oriented x 3, equal unlabored respirations, skin warm/dry/pink. 13:15 Reassessment: Patient appears in no apparent distress at this time. No changes from hb previously documented assessment. Patient and/or family updated on plan of care and expected duration. Pain level reassessed. Patient is alert, oriented x 3, equal unlabored respirations, skin warm/dry/pink. Vital Signs: 11:22 BP 171 / 70; Pulse 68; Resp 16; Temp 97.9; Pulse Ox 100% on R/A; Pain 6/10; hb 12:15 BP 168 / 68; Pulse 66; Resp 15; Pulse Ox 100% on R/A; Pain 3/10; hb 13:15 BP 166 / 66; Pulse 65; Resp 17; Pulse Ox 100% on R/A; hb Mikael Coma Score: 11:22 Eye Response: spontaneous(4). Verbal Response: oriented(5). Motor Response: obeys hb commands(6). Total: 15. Trauma Score (Adult): 11:22 Eye Response: spontaneous(1); Verbal Response: oriented(1); Motor Response: obeys hb commands(2); Systolic BP: > 89 mm Hg(4); Respiratory Rate: 10 to 29 per min(4); Mikael Score: 15; Trauma Score: 12 12:15 Eye Response: spontaneous(1); Verbal Response: oriented(1); Motor Response: obeys hb commands(2); Systolic BP: > 89 mm Hg(4); Respiratory Rate: 10 to 29 per min(4); Nathalie Score: 15; Trauma Score: 12 13:15 Eye Response: spontaneous(1); Verbal Response: oriented(1); Motor Response: obeys hb commands(2); Systolic BP: > 89 mm Hg(4); Respiratory Rate: 10 to 29 per min(4); Mikael Score: 15; Trauma Score: 12 ED Course: 11:18 Patient arrived in ED. hb 11:21 Nkechi Ventura MD is Attending Physician. ma2 11:22 Triage completed. hb 11:24 Arm band placed on right wrist. hb 11:27 Patient has correct armband on for positive identification. Bed in low position. Call hb light in reach. Side rails up X 1. 11:27 Patient maintains SpO2 saturation greater than 95% on room air. Thermoregulation: warm hb blanket given to patient. 11:40 CT completed. Patient tolerated procedure well. Patient moved to CT via stretcher. sj Patient moved back from CT. 12:14 X-ray completed. Portable x-ray completed in exam room. Patient tolerated procedure jb2 well. 12:44 Zoe Bryant, LOLLY is Primary Nurse. hb 15:00 No provider procedures requiring assistance completed. hb 15:00 IV discontinued, intact, bleeding controlled, No redness/swelling at site. Pressure hb dressing applied. Administered Medications: 12:44 Drug: Lidocaine-Epinephrine -1%: (1:100,000) 10 ml {Note: ADMINISTERED BY DR. 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 Exp: hb 11/17/2020. Lot #: [id number]. } Route: IM; Site: right deltoid; Intake: 12:15 PO: 0ml; Total: 0ml. hb Output: 12:15 Urine: 0ml; Total: 0ml. hb Outcome: 14:04 Discharge ordered by MD. hemphill 15:00 Patient's length of stay in the Emergency Department was greater than 2 hours. awaiting hb dispo and transportationPatient's length of stay extended due to 15:00 Discharged to home via wheelchair. hb 15:00 Condition: stable 15:00 Discharge instructions given to patient, Instructed on discharge instructions, follow up and referral plans. medication usage, Demonstrated understanding of instructions, follow-up care, medications, wound care, Prescriptions given X 1. 15:13 Patient left the ED. Signatures: Alex Marcano Susan sj Baxter, Heather, RN RN hb Alzahri, Mohammad, MD MD ma2
--- NOTE | 2018-10-19 14:05 | EDPHYS ---
Physician Documentation [facility] Name: Victor Hugo Damon Age: 88 yrs Sex: Male : 1930 Arrival Date: 10/19/2018 Time: 11:18 Bed 2 Private MD: ED Physician Nkechi Ventura HPI: 10/19 12:08 This 88 yrs old Male presents to ER via EMS with complaints of Fall Injury. ma2 12:08 This 88 yrs old Male presents to ER via EMS with complaints of Fall Injury. ma2 12:08 Details of fall: The patient fell from an upright position, and struck a granite ma2 surface. Onset: The symptoms/episode began/occurred suddenly, gradually, 1 hour(s) ago. Associated injuries: The patient sustained injury to the head, upper back injury. Severity of symptoms: At their worst the symptoms were moderate. The patient has not experienced similar symptoms in the past. mechanical fall tdap not uptodate . Historical: - Allergies: 11:27 PENICILLINS; hb - Home Meds: 11:27 acetaminophen 325 mg Oral tab 2 tabs every 4 hours for Pain [Active]; amlodipine 5 mg hb tab 1 tab once daily [Active]; aspirin 81 mg Oral TbEC 1 tab once daily [Active]; bisacodyl 5 mg Oral TbEC 1 tab once daily [Active]; carvedilol 25 mg Oral tab 1 tab 2 times per day [Active]; clopidogrel 75 mg Oral tab 1 tab once daily [Active]; losartan 50 mg Oral tab 1 tab once daily [Active]; melatonin 3 mg Oral tab nightly [Active]; Myrbetriq 25 mg Oral Tb24 1 tab once daily [Active]; Myrbetriq 25 mg Oral Tb24 1 tab once daily [Active]; nifedipine 30 mg Oral TbER 2 tabs once daily [Active]; Nifedipine ER Oral 30 mg twice a day [Active]; potassium chloride 10 mEq Oral cpER 1 cap once daily [Active]; prednisone 20 mg Oral tab 1 tab once daily [Active]; torsemide 20 mg Oral tab 1 tab once daily [Active]; torsemide 10 mg Oral tab 1 tab once daily [Active]; warfarin 5 mg Oral tab 1 tab once daily [Active]; - PMHx: 11:27 Atrial Fib; CVA; Diabetes - NIDDM; Hypertension; hb - PSHx: 11:27 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 - Social history:: Smoking status: Patient/guardian denies using tobacco, Patient/guardian denies using alcohol, street drugs, The patient lives with family. - Immunization history: Last tetanus immunization: < 10 years ago. - Ebola Screening: : No symptoms or risks identified at this time. - Family history:: not pertinent, pertinent for. - Hospitalizations: : No recent hospitalization is reported. ROS: 12:08 Constitutional: Negative for fever, chills, and weight loss, Cardiovascular: Negative ma2 for chest pain, palpitations, and edema, Respiratory: Negative for shortness of breath, cough, wheezing, and pleuritic chest pain, Abdomen/GI: Negative for abdominal pain, nausea, diarrhea, and constipation, Skin: Negative for injury, rash, and discoloration, Neuro: Negative for headache, weakness, numbness, tingling, and seizure, Psych: Negative for depression, anxiety, suicide ideation, homicidal ideation, and hallucinations, Allergy/Immunology: Negative for hives, rash, and allergies, Endocrine: Negative for neck swelling, polydipsia, polyuria, polyphagia, and marked weight changes. Exam: 12:08 Constitutional: This is a well developed, well nourished patient who is awake, alert, ma2 and in no acute distress. 12:08 Eyes: Pupils equal round and reactive to light, extra-ocular motions intact. Lids and lashes normal. Conjunctiva and sclera are non-icteric and not injected. Cornea within normal limits. Periorbital areas with no swelling, redness, or edema. Chest/axilla: Normal chest wall appearance and motion. Nontender with no deformity. No lesions are appreciated. Cardiovascular: Regular rate and rhythm with a normal S1 and S2. No gallops, murmurs, or rubs. Normal PMI, no JVD. No pulse deficits. Respiratory: Lungs have equal breath sounds bilaterally, clear to auscultation and percussion. No rales, rhonchi or wheezes noted. No increased work of breathing, no retractions or nasal flaring. Back: No spinal tenderness. No costovertebral tenderness. Full range of motion. MS/ Extremity: Pulses equal, no cyanosis. Neurovascular intact. Full, normal range of motion. Neuro: Awake and alert, GCS 15, oriented to person, place, time, and situation. Cranial nerves II-XII grossly intact. Motor strength 5/5 in all extremities. Sensory grossly intact. Cerebellar exam normal. Normal gait. 12:08 Head/face: abrasions and laceration of forehead 1 cm linear and abrasion to nose. 12:08 Musculoskeletal/extremity: ROM: intact in all extremities. 12:08 Skin: abrasion left elbow . Vital Signs: 11:22 BP 171 / 70; Pulse 68; Resp 16; Temp 97.9; Pulse Ox 100% on R/A; Pain 6/10; hb 12:15 BP 168 / 68; Pulse 66; Resp 15; Pulse Ox 100% on R/A; Pain 3/10; hb 13:15 BP 166 / 66; Pulse 65; Resp 17; Pulse Ox 100% on R/A; hb Mikael Coma Score: 11:22 Eye Response: spontaneous(4). Verbal Response: oriented(5). Motor Response: obeys hb commands(6). Total: 15. Trauma Score (Adult): 11:22 Eye Response: spontaneous(1); Verbal Response: oriented(1); Motor Response: obeys hb commands(2); Systolic BP: > 89 mm Hg(4); Respiratory Rate: 10 to 29 per min(4); Berlin Score: 15; Trauma Score: 12 12:15 Eye Response: spontaneous(1); Verbal Response: oriented(1); Motor Response: obeys hb commands(2); Systolic BP: > 89 mm Hg(4); Respiratory Rate: 10 to 29 per min(4); Berlin Score: 15; Trauma Score: 12 13:15 Eye Response: spontaneous(1); Verbal Response: oriented(1); Motor Response: obeys hb commands(2); Systolic BP: > 89 mm Hg(4); Respiratory Rate: 10 to 29 per min(4); Mikael Score: 15; Trauma Score: 12 Laceration: 12:08 Wound Repair of 2cm ( 0.8in ) subcutaneous laceration to face. Distal ma2 neuro/vascular/tendon intact. Anesthesia: Local anesthetic administered with 10 mls of 1% lidocaine w/ Epi. Wound prep: Simple cleansing. Skin closed with 5-0 Prolene using simple sutures and sterile technique. Skin closed with 3 1-0 Prolene using simple sutures and sterile technique. Dressed with Bacitracin. Patient tolerated well. MDM: 11:21 Patient medically screened. [facility] 12:08 Differential diagnosis: abrasion, closed head injury, contusion, laceration. [facility] 14:03 Data reviewed: vital signs, nurses notes, radiologic studies, CT scan. Counseling: I or2 had a detailed discussion with the patient and/or guardian regarding: the historical points, exam findings, and any diagnostic results supporting the discharge/admit diagnosis, the presence of at least one elevated blood pressure reading (>120/80) during this emergency department visit, the need for outpatient follow up. Response to treatment: the patient's symptoms have resolved after treatment. 10/19 11:30 Order name: Basic Metabolic Panel [facility] 10/19 11:30 Order name: CBC with Diff [facility] 10/19 11:30 Order name: Creatinine for Radiology [facility] 10/19 11:30 Order name: Type And Screen [facility] 10/19 12:57 Order name: CBC with Automated Diff; Complete Time: 13:34 EDMS 10/19 13:07 Order name: Basic Metabolic Panel; Complete Time: 13:34 EDMS 10/19 11:30 Order name: XRAY Pelvis [facility] 10/19 11:30 Order name: XRAY Chest (1 view) [facility] 10/19 11:30 Order name: CT Head C Spine [facility] 10/19 11:30 Order name: CT Lumbar Spine Wo Con [facility] 10/19 11:30 Order name: CT Facial Bones W/O Con [facility] 10/19 12:04 Order name: CT; Complete Time: 12:13 EDMS 10/19 13:07 Order name: Creatinine (Radiology Only); Complete Time: 13:34 EDMS 10/19 14:03 Order name: Type and Screen [facility] 10/19 11:30 Order name: Labs collected and sent [facility] 10/19 11:30 Order name: Prolene, Sutures; Complete Time: 11:43 [facility] 10/19 11:30 Order name: Dressing - Wound; Complete Time: 11:44 [facility] 10/19 11:30 Order name: Gloves, Sterile; Complete Time: 11:44 [facility] 10/19 11:30 Order name: Setup Suture Tray; Complete Time: 11:44 [facility] 10/19 12:09 Order name: CT; Complete Time: 12:13 [facility] 10/19 12:14 Order name: CT; Complete Time: 13:34 [facility] 10/19 12:35 Order name: RAD; Complete Time: 13:34 [facility] 10/19 12:38 Order name: RAD; Complete Time: 13:34 [facility] 10/19 14:06 Order name: Dressing - Wound: forearm abrasions please; Complete Time: 14:30 ma2 Administered Medications: 12:44 Drug: Lidocaine-Epinephrine -1%: (1:100,000) 10 ml {Note: ADMINISTERED BY DR. VENTURA.} hb Volume: 20 ml; Route: Infiltration; 13:05 Drug: Tetanus-Diphtheria Toxoid Adult 0.5 ml {Circle [employer]ger: Over 40 Females. Exp: hb 11/17/2020. Lot #: [id number]. } Route: IM; Site: right deltoid; Disposition: 10/19/18 14:04 Discharged to Home. Impression: Fall (on)(from) sidewalk curb. - Condition is Stable. - Discharge Instructions: Head Injury, Adult, Contusion, [id number]. - Prescriptions for Tylenol- Codeine #3 300-30 mg Oral Tablet - take 2 tablet by ORAL route every 6 hours As needed; 30 tablet. - Medication Reconciliation Form, Thank You Letter, Antibiotic Education, Prescription Opioid Use form. - Follow up: Private Physician; When: Tomorrow; Reason: Continuance of care. - Notes: Please remove 3 forehead sutures in 5 days Signatures: Dispatcher [facility] Zoe Bryant RN RN Nkechi Ventura MD MD ma2 Corrections: (The following items were deleted from the chart) 15:13 14:04 10/19/2018 14:04 Discharged to Home. Impression: Fall (on)(from) sidewalk curb. hb Condition is Stable. Forms are Medication Reconciliation Form, Thank You Letter, Antibiotic Education, Prescription Opioid Use. Follow up: Private Physician; When: Tomorrow; Reason: Continuance of care. ma2
[2018-10-19 15:28] VITALS: TEMP 97.9; O2SAT 100
[2018-10-19 15:30] VITALS: BP 166/66
== END 2018-10-19 15:13 | disposition home or self-care (01) ==
LOC: ER 11:17
PROC: 0JQ10ZZ Repair Face Subcutaneous Tissue and Fascia, Open Approach (ICD-10-PCS; principal; 2018-10-19)
DX: S01.81XA Laceration without foreign body of other part of head, initial encounter (principal); W10.1XXA Fall (on)(from) sidewalk curb, initial encounter; Y93.9 Activity, unspecified; Y92.9 Unspecified place or not applicable; Z23 Encounter for immunization; Z79.82 Long term (current) use of aspirin; Z88.0 Allergy status to penicillin; Z95.2 Presence of prosthetic heart valve; I10 Essential (primary) hypertension; E11.9 Type 2 diabetes mellitus without complications; I48.91 Unspecified atrial fibrillation
CPT/HCPCS: 36415; 70450; 70486; 71045; 72125; 72131; 72170; 76377; 80048; 85025; 86850; 86900; 86901; 90714

== ENCOUNTER 2018-11-10 14:56 | Emergency (ER) | payer OTHER ==
--- OUTSIDE RECORDS SUMMARY | 2018-11-10 15:04 | XMS REPORT | Clinical Summary ---
:1930 Author Organization [facility] Address [address] [place] [address] Care Team Providers Name Role Phone Pcp, [...] 05/19/2018 Surgery Cristobal Moreno TAVR / [facility] - MD Nelson PROC ONLY 05/19/2018 Anesthesia Event Johnson Peralta MD 05/19/2018 - Hospital Encounter Cardiology Cristobal Moreno Advanced age; 05/30/2018 MD Nelson Severe aortic stenosis 05/19/2018 Orders Only General Internal Medicine 04/21/2018 Hospital Encounter Cristobal Moreno MD 04/21/2018 Office Visit Cardiology Joseph Tsai Hyperlipidemia, unspecified hyperlipidemia type; MD Barrett PVD (peripheral vascular disease) ([facility]); Stage 2 chronic kidney disease 04/19/2018 Office Visit Cardiology Cipriano, Severe aortic stenosis; Sudhir Claire, Coronary artery disease involving [place] coronary artery of [place] heart without angina pectoris; Essential hypertension; Carotid artery disease, unspecified laterality ([facility]) 04/19/2018 Hospital Encounter Radiology Cristobal Moreno Aortic valve stenosisNelson MD etiology of cardiac valve disease unspecified 04/19/2018 Hospital Encounter Radiology Cristobal Moreno Aortic valve stenosisNelson MD etiology of cardiac valve disease unspecified 04/15/2018 Outside Orders Central Scheduling Cristobal Moreno Aortic valve stenosisNelson MD etiology of cardiac valve disease unspecified (Primary Dx) after 11/09/2017 Family History Medical History Relation Name Comments [...] INFLUENZA VACCINE 08/30/2018 Implants Implanted Type Area Pig Farmer Device Shelf Model / Identifier Expiration Date Serial / Lot Valve Heart Payton 3 26mm [id number] - [id number] Valves PASTRANA [employer] [id number] / Implanted: Qty: 1 on 05/19/2018 by Cristobal Moreno MD [id number] / Procedures Procedure Name Priority Date/Time Associated [...] 394 ms QTC Calculation(Bazett) 454 ms P [place] 23 degrees R [place] 29 degrees T [place] 194 degrees Sinus rhythm with marked sinus [...] 388 ms QTC Calculation(Bazett) 450 ms P [place] 52 degrees R [place] 28 degrees T [place] 136 degrees Normal sinus rhythm with sinus [...] 376 ms QTC Calculation(Bazett) 444 ms P [place] 56 degrees R [place] 23 degrees T [place] 138 degrees Sinus rhythm with Premature atrial [...] 380 ms QTC Calculation(Bazett) 452 ms R [place] 188 degrees T [place] 33 degrees Normal sinus rhythm with sinus [...] TAVR (CV ANES) DEVANTE Special Needs SCOT [phone]/[facility] TRANSFUSION SERVICE 04/22/2018 5:42 PM REPORT - [...] procedure are in the results section. after 11/09/2017 Results RHYTHM STRIP - SCAN (06/01/2018 8:10 AM CDT) Narrative Performed At POC-Glucose meter (05/30/2018 8:21 AM CDT)Only the most recent of32 resultswithin the time period is included. POC-Glucose Meter 112 (H)Comment: TESTED AT 70 - 110 mg/dL [facility] [address] [place] [address] Specimen Blood Performing Organization Address [facility] [place] [address] CENTER Prothrombin time/INR (05/30/2018 4:31 AM CDT)Only the most recent of8 resultswithin the time period is included. Protime 22.3 (H) 11.7 - 14.7 seconds [facility] INR 2.0 <=5.9 [facility] Specimen Blood - Arm, Right Narrative Performed At [facility] RECOMMENDED COUMADIN/WARFARIN INR THERAPY RANGES STANDARD DOSE: 2.0 - 3.0 Includes: PROPHYLAXIS for venous thrombosis, systemic embolization; TREATMENT for venous thrombosis and/or pulmonary embolus. HIGH RISK: Target INR is 2.5-3.5 for patients with mechanical heart valves. Performing Organization Address [facility] Centercofl Phone Number [address] [address] CENTER CBC (Hemogram only) (05/30/2018 4:31 AM CDT)Only the most recent of8 resultswithin the time period is included. WBC 10.0 3.5 - 10.5 K/L [facility] RBC 3.44 (L) 4.63 - 6.08 M/L [facility] Hemoglobin 9.6 (L) 13.7 - 17.5 GM/DL [facility] Hematocrit 30.8 (L) 40.1 - 51.0 % [facility] MCV 89.5 79.0 - 92.2 fL [facility] MCH 27.9 25.7 - 32.2 pg [facility] MCHC 31.2 (L) 32.3 - 36.5 GM/DL [facility] RDW 16.1 (H) 11.6 - 14.4 % [facility] Platelets 169 150 - 450 K/CU MM [facility] MPV 11.5 9.4 - 12.4 fL [facility] nRBC 0 0 - 0 /100 WBC [facility] Specimen Blood - Arm, Right Performing Organization Address City/[facility] Centercofl Phone Number [facility] [address] [place] [address] CENTER Basic Metabolic Panel (05/30/2018 4:31 AM CDT)Only the most recent of11 resultswithin the time period is included. Sodium 136 136 - 145 meq/L [facility] Potassium 3.7 3.5 - 5.1 meq/L [facility] Chloride 101 98 - 107 meq/L [facility] CO2 26 22 - 29 meq/L [facility] BUN 28 (H) 7 - 21 mg/dL [facility] Creatinine 1.31 (H) 0.57 - 1.25 mg/dL [facility] Glucose 74 70 - 105 mg/dL [facility] Calcium 8.9 8.4 - 10.2 mg/dL [facility] EGFR 52Comment: ESTIMATED GFR IS mL/min/1.73 sq m [facility] NOT ACCURATE [facility] CLEARANCE IN PREDICTING GLOMERULAR FILTRATION RATE. ESTIMATED GFR IS NOT APPLICABLE FOR DIALYSIS PATIENTS. Specimen Blood - Arm, Right Performing Organization Address City/State/Zipcode Phone Number [facility] [address], [place] [phone] CENTER Magnesium (05/28/2018 5:53 AM CDT)Only the most recent of9 resultswithin the time period is included. Magnesium 2.3 1.6 - 2.6 mg/dL [facility] Specimen Blood - Arm, Left Performing Organization Address City/[facility] Centercode Phone Number [facility] [address], [place] [phone] CENTER Transfuse Leuko-Red RBC (05/26/2018 1:11 PM CDT)Only the most recent of2 resultswithin the time period is included.CBC with platelet count + automated diff (05/26/2018 6:27 AM CDT)Only the most recent of3 resultswithin the time period is included. WBC 12.2 (H) 3.5 - 10.5 K/L [facility] RBC 3.70 (L) 4.63 - 6.08 M/L [facility] Hemoglobin 10.6 (L) 13.7 - 17.5 GM/DL [facility] Hematocrit 33.2 (L) 40.1 - 51.0 % [facility] MCV 89.7 79.0 - 92.2 fL [facility] MCH 28.6 25.7 - 32.2 pg [facility] MCHC 31.9 (L) 32.3 - 36.5 GM/DL [facility] RDW 15.9 (H) 11.6 - 14.4 % [facility] Platelets 137 (L) 150 - 450 K/CU MM [facility] MPV 11.1 9.4 - 12.4 fL [facility] nRBC 0 0 - 0 /100 WBC [facility] % Neutros 54 % [facility] % Lymphs 33 % [facility] % Monos 8 % [facility] % Eos 3 % [facility] % Baso 0 % [facility] # Neutros 6.59 (H) 1.78 - 5.38 K/L [facility] # Lymphs 3.96 (H) 1.32 - 3.57 K/L [facility] # Monos 1.00 (H) 0.30 - 0.82 K/L [facility] # Eos 0.30 0.04 - 0.54 K/L [facility] # Baso 0.05 0.01 - 0.08 K/L [facility] Immature Granulocytes-Relative 2 (H) 0 - 1 % [facility] Specimen Blood - Arm, Right Performing Organization Address City/State/Zipcode Phone Number [facility] [address] [place] [address] brain without IV contrast (05/25/2018 7:04 PM CDT)Only the most recent of2 resultswithin the time period is included. Narrative Performed At FINAL REPORT [place] [facility] CT head without contrast 05/25/2018 7:14 PM [...] MD Report Verified Date/Time:05/25/2018 19:17:21 Reading Location: [facility] Radiology Reading Room Procedure Note Interface, [...] Report Verified Date/Time: 05/25/2018 19:17:21 Reading Location: [facility] Radiology Reading Room Performing Organization Address City/State/Zipcode Phone Number [place] [facility]IS TRANSFUSION SERVICE REPORT - SCAN (05/25/2018 6:00 PM CDT)Only the most recent of4 resultswithin the time period is included. Narrative Performed At Prepare Leuko-Red RBC (05/24/2018 11:54 PM CDT) CROSSMATCH COMPATIBLE [facility]AFET[facility]ACE TX Unit ABO O Pos SAFET[facility]ACE TX UNIT NUMBER [id number] SAFET[facility]ACE TX Status TRANSFUSED SAFET[facility]ACE TX Blood Bank Product RED BLOOD CELLS [facility]AFET[facility]ACE [place] PRODUCT CODE [id number] [facility] [place] Specimen Other Performing Organization Address [facility] Phone Number [facility] [place] Type and screen, automated (05/23/2018 11:30 AM CDT)Only the most recent of2 resultswithin the time period is included. ABO/RH AUTOMATED (BEAKER) O POSITIVE [facility] Ab Scrn NEGATIVE [facility] Specimen Blood Performing Organization Address [facility] Phone Number [address] [address] aPTT (05/23/2018 6:15 AM CDT)Only the most recent of6 resultswithin the time period is included. PTT 94.3 (H) 22.5 - 36.0 seconds [facility] Specimen Blood Performing Organization Address [facility] Phone Number [address] [address] CENTER Iron, TIBC, % sat. (without ferritin) (05/23/2018 5:25 AM CDT) Iron 63 40 - 160 ug/dL [facility] TIBC 224 (L) 250 - 450 ug/dL [facility] Iron % Saturation 28 20 - 55 % [facility] Specimen Blood Performing Organization Address [facility] Phone Number [address] [address] CENTER Ferritin (05/23/2018 5:25 AM CDT) Ferritin 435 (H) 5 - 275 ng/mL [facility] Specimen Blood Performing Organization Address [facility] Centercode Phone Number [facility] [address] [place] [address] [phone] CENTER ECG 12 lead (05/22/2018 1:56 PM CDT)Only the most recent of4 resultswithin the time period is included. Narrative Performed At Ventricular Rate 80 BPM GE MUSE Atrial Rate 80 BPM P-R Interval 164 ms QRS Duration 100 ms Q-T Interval 394 ms QTC Calculation(Bazett) 454 ms P [place] 23 degrees R [place] 29 degrees T [place] 194 degrees Sinus rhythm with marked sinus [...] 394 ms QTC Calculation(Bazett) 454 ms P [place] 23 degrees R [place] 29 degrees T [place] 194 degrees Sinus rhythm with marked sinus arrhythmia ST & T wave abnormality, consider inferolateral ischemia Abnormal ECG When compared with ECG of 20-MAY-2018 06:03, ST no longer depressed in Lateral leads T wave inversion now evident in Inferior leads T wave inversion now evident in Anterior leads Confirmed by MD TERESA, ALEJANDRAMIJackie ([id number]) on 05/22/2018 2:20:53 PM Performing Organization Address City/[facility]/Zipcode Phone Number GE MUSE PT/aPTT (05/22/2018 2:19 AM CDT)Only the most recent of3 resultswithin the time period is included. Protime 15.0 (H) 11.7 - 14.7 seconds [facility] INR 1.2 <=5.9 [facility] PTT 179.7 (HH) 22.5 - 36.0 seconds [facility] Specimen Blood Narrative Performed At [facility] RECOMMENDED COUMADIN/WARFARIN INR THERAPY RANGES STANDARD DOSE: 2.0 - 3.0 Includes: PROPHYLAXIS for venous thrombosis, systemic embolization; TREATMENT for venous thrombosis and/or pulmonary embolus. HIGH RISK: Target INR is 2.5-3.5 for patients with mechanical heart valves. Performing Organization Address City/State/Zipcode Phone Number [address] [address] [phone] CENTER Calcium, Ionized (05/22/2018 2:19 AM CDT)Only the most recent of2 resultswithin the time period is included. Calcium, Ion 1.15 1.12 - 1.27 mmol/L [facility] pH, Blood 7.40 [facility] Specimen Blood Performing Organization Address [facility] Phone Number [address] [address] CENTER Phosphorus (05/22/2018 2:19 AM CDT)Only the most recent of3 resultswithin the time period is included. Phosphorus 3.6 2.3 - 4.7 mg/dL [facility] Specimen Blood Performing Organization Address [facility] Phone Number [address] [address] [place] Vancomycin level, random (05/22/2018 2:19 AM CDT) Vancomycin Rm 24.4 ug/mL [facility] Specimen Blood Narrative Performed At [facility] Reference Range: No Normals Performing Organization Address [facility] Centercode Phone Number [address] [address] CENTER MR brain without IV contrast (05/21/2018 11:53 AM CDT) Narrative Performed At FINAL REPORT [employer] MRI Brain without contrast Clinical History: Stroke [...] MD Report Verified Date/Time:05/21/2018 11:58:08 Reading Location: [address] Neuro Reading Room Procedure Note Interface, [...] Report Verified Date/Time: 05/21/2018 11:58:08 Reading Location: [address] Neuro Reading Room Performing Organization Address City/State/Zipcode Phone Number [facility] [employer] MRA neck without IV contrast (05/21/2018 11:53 AM CDT) Narrative Performed At FINAL REPORT [facility] MRA Head and Neck CLINICAL HISTORY: Stroke TECHNIQUE: MRA of the head utilizing 3-D yvny-wr-wrpzzk technique, with 3-D reconstructions. MRA of the neck utilizing 2-D and 3-D nene-ly-nbujze technique, with 3-D reconstructions. COMPARISON: None FINDINGS: There is no evidence for a [place] proximal branch vessel occlusion. There [...] vertebral arteries. IMPRESSION: No evidence for a [place] proximal branch vessel occlusion. No hemodynamically significant stenosis in the internal carotid arteries. 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 Signed: Jaycob Alvarado MD Report Verified Date/Time:05/21/2018 12:04:26 Reading Location: [address] Neuro Reading Room Procedure Note Interface, External Ris In - 05/21/2018 12:06 PM CDT FINAL REPORT MRA Head and Neck CLINICAL HISTORY: Stroke TECHNIQUE: MRA of the head utilizing 3-D ogsi-nn-brgrvr technique, with 3-D reconstructions. MRA of the neck utilizing 2-D and 3-D topg-ov-xolomc technique, with 3-D reconstructions. COMPARISON: None FINDINGS: There is no evidence for a [place] proximal branch vessel occlusion. There [...] vertebral arteries. IMPRESSION: No evidence for a [place] proximal branch vessel occlusion. No hemodynamically significant stenosis in the internal carotid arteries. 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 Signed: Jaycob Alvarado MD Report Verified Date/Time: 05/21/2018 12:04:26 Reading Location: [address] Neuro Reading Room Performing Organization Address City/State/Zipcode Phone Number [employer] MRA head without IV contrast (05/21/2018 11:53 AM CDT) Narrative Performed At FINAL REPORT [employer] MRA Head and Neck CLINICAL HISTORY: Stroke TECHNIQUE: MRA of the head utilizing 3-D rdgf-mk-rgrung technique, with 3-D reconstructions. MRA of the neck utilizing 2-D and 3-D vhjg-vk-fgrxle technique, with 3-D reconstructions. COMPARISON: None FINDINGS: There is no evidence for a [place] proximal branch vessel occlusion. There [...] vertebral arteries. IMPRESSION: No evidence for a [place] proximal branch vessel occlusion. No hemodynamically significant stenosis in the internal carotid arteries. 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 Signed: Jacyob Alvarado MD Report Verified Date/Time:05/21/2018 12:04:26 Reading Location: [address] Neuro Reading Room Procedure Note Interface, External Ris In - 05/21/2018 12:06 PM CDT FINAL REPORT MRA Head and Neck CLINICAL HISTORY: Stroke TECHNIQUE: MRA of the head utilizing 3-D avla-wr-axisdy technique, with 3-D reconstructions. MRA of the neck utilizing 2-D and 3-D zboy-nz-eehvwa technique, with 3-D reconstructions. COMPARISON: None FINDINGS: There is no evidence for a [place] proximal branch vessel occlusion. There [...] vertebral arteries. IMPRESSION: No evidence for a [place] proximal branch vessel occlusion. No hemodynamically significant stenosis in the internal carotid arteries. 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 Signed: Jaycob Alvarado MD Report Verified Date/Time: 05/21/2018 12:04:26 Reading Location: [facility] [id number] Neuro Reading Room Performing Organization Address City/State/Zipcode Phone Number [facility] XR chest 1 view portable / bedside (05/21/2018 7:27 AM CDT)Only the most recent of2 resultswithin the time period is included. Narrative Performed At FINAL REPORT [employer] Portable chest CLINICAL HISTORY: Hypoxemia. COMPARISON STUDY: May 19, 2018. FINDINGS: The cardiac silhouette is unremarkable. The patient is status post sternotomy and valve replacement. There are increased interstitial markings with atelectatic changes in the lung bases and costophrenic angle blunting. No pneumothorax is noted. Degenerative changes are seen. IMPRESSION: No significant change. Signed: Addy Zapata MD Report Verified Date/Time:05/21/2018 10:54:40 Reading Location: [facility] [id number] Ortho Consult Reading Room Procedure [...] Report Verified Date/Time: 05/21/2018 10:54:40 Reading Location: [address] Ortho Consult Reading Room Performing Organization Address City/[facility] Centerc[facility] Phone Number RIS TSH/Free T4 If Indicated (05/21/2018 2:59 AM CDT) TSH 0.77 0.35 - 4.94 uIU/mL [facility] Specimen Blood Performing Organization Address [facility] Phone Number [address] [address] CENTER Hemoglobin A1c (05/21/2018 2:59 AM CDT) Hemoglobin A1C 8.1 (H) 4.3 - 6.1 % [facility] Specimen Blood Performing Organization Address City/[facility] Centercode Phone Number [address] [address] [place] Vitamin B12 (05/21/2018 2:59 AM CDT) Vitamin B12 692 213 - 816 pg/mL [facility] Specimen Blood Performing Organization Address [facility] Centerc[facility] Phone Number [address] [address] [phone] CENTER Lipid panel (05/21/2018 2:59 AM CDT) Triglycerides 348 mg/dL [facility] Cholesterol 208 mg/dL [facility] HDL 26 mg/dL [facility] LDL Calculated 112 mg/dL [facility] Specimen Blood Narrative Performed At [facility] Triglyceride Reference Range: Low Risk <150 [id number] High Risk 200-499 Very High Risk>=500 Cholesterol Reference Range: Low Risk <200 [id number] High Risk>240 HDL Cholesterol Reference Range: Low Risk >=60 High Risk <40 LDL Cholesterol Reference Range: Optimal<100 Near [id number] [id number] Very High >=190 Performing Organization Address City/State/Zipcode Phone Number [facility] [address] [place] [address] CENTER ECHOCARDIOGRAM REPORT - SCAN (05/20/2018 6:50 PM CDT) Narrative Performed At CARDIAC CATH REPORT - SCAN (05/20/2018 3:41 PM CDT) Narrative Performed At EEG AWAKE AND DROWSY (05/20/2018 2:38 PM CDT) Narrative Performed At Date(s) of EE05/20/2018 GE RIS DATE OF REPORT: 05/20/2018 ACC: [id number] EEG Number: [id number] Test Location: Inpatient ICU Start time: 14:17 Stop time: 14:38 ICD-10: R56.9 CPT Code: 79914 HISTORY: 87 y.o. RHM w/ severe who [...] Fellow, PGY5 Linette Choe MD Attending Neurophysiologist [facility] Procedure Note Interface, External Ris In - 05/20/2018 3:54 PM CDT Date(s) of EE05/20/2018 DATE OF REPORT: 05/20/2018 ACC: [id number] EEG Number: [id number] Test Location: Inpatient ICU Start time: 14:17 Stop time: 14:38 ICD-10: R56.9 CPT Code: 34294 HISTORY: 87 y.o. RHM w/ severe who [...] Fellow, PGY5 Linette Choe MD Attending Neurophysiologist [facility] Performing Organization Address [facility] Cent[facility]ode Phone Number [facility] [employer] XR abdomen / KUB 1 view (05/20/2018 11:22 AM CDT) Narrative Performed At FINAL REPORT [facility] [employer] Abdomen one view INDICATION: Nasogastric tube insertion COMPARISON: None available IMPRESSION: NG tube extends to the gastric body. The imaged bowel gas pattern is nonspecific. There are degenerative spine changes and incidental vascular calcifications. The imaged chest is similar to 05/19/2018. Signed: Virgil Kraft MD Report Verified Date/Time:05/20/2018 11:33:02 Reading Location: [facility] Radiology Reading Room Procedure Note Interface, [...] Report Verified Date/Time: 05/20/2018 11:33:02 Reading Location: [facility] Radiology Reading Room Performing Organization Address [facility] Phone Number GE RIS Troponin I (05/20/2018 11:05 AM CDT)Only the most recent of2 resultswithin the time period is included. Troponin I 1.13 (HH) 0.00 - 0.03 ng/mL [facility] Specimen Blood - Arm, Right Narrative Performed At [facility] Troponin I (TnI) levels must be interpreted [...] disease, and persistent tachyarrhythmia. Performing Organization Address City/[facility]/Zipcode Phone Number [address] [address] CENTER Lactic acid, venous, whole blood (05/20/2018 11:05 AM CDT) Lactate, Venous 2.1 0.5 - 2.2 mmol/L [facility] Specimen Blood - Arm, Right Narrative Performed At [facility] Effective 04/02/2016: Units/Reference Range Change New: 0.5-2.2 mmol/LPrevious: 5-20 mg/dL Performing Organization Address City/[facility]/Zipcode Phone Number [address] [address] CENTER Blood gas, venous (05/20/2018 11:05 AM CDT) pH, Phil 7.40 7.32 - 7.42 [facility] pCO2, Phil 45 41 - 51 mmHg [facility] pO2, Phil 26 25 - 40 mmHg [facility] O2 Sat, Phil 46.3 40.0 - 70.0 % [facility] HCO3, Phil 27 21 - 29 mmol/L [facility] Base Excess, Phil 1.8 -2.0 - 3.0 mmol/L [facility] Patient Temperature 36.9 C [facility] FIO2 36.0 % [facility] Specimen Blood - Arm, Right Performing Organization Address City/State/Zipcode Phone Number [address] [address] [place] Creatine Kinase (CK), Total and MB (05/20/2018 11:05 AM CDT)Only the most recent of2 resultswithin the time period is included. Total CK 138 29 - 200 U/L [facility] CK-MB 4.2 0.0 - 6.6 ng/mL [facility] MB Relative Index 3.0 % [facility] [facility] Specimen Blood - Arm, Right Narrative Performed At [facility] Reference Range: [facility] <6.7Normal 6.7-10.0Borderline >10.0 Abnormal Performing Organization Address City/[facility] Cent[facility] Phone Number [address] [address] [phone] [place] Comprehensive metabolic panel (05/20/2018 11:05 AM CDT)Only the most recent of2 resultswithin the time period is included. Protein, Total 5.7 (L) 6.0 - 8.3 gm/dL [facility] Albumin 3.4 (L) 3.5 - 5.0 g/dL [facility] Alkaline Phosphatase 42 40 - 150 U/L [facility] Total Bilirubin 0.8 0.2 - 1.2 mg/dL [facility] Sodium 139 136 - 145 meq/L [facility] Potassium 4.2 3.5 - 5.1 meq/L [facility] Chloride 100 98 - 107 meq/L [facility] CO2 23 22 - 29 meq/L [facility] BUN 38 (H) 7 - 21 mg/dL [facility] Creatinine 2.17 (H) 0.57 - 1.25 mg/dL [facility] Glucose 129 (H) 70 - 105 mg/dL [facility] Calcium 9.0 8.4 - 10.2 mg/dL [facility] AST 27 5 - 34 U/L [facility] ALT 14 6 - 55 U/L [facility] EGFR 29Comment: ESTIMATED GFR mL/min/1.[address] [facility] IS NOT ACCURATE [facility] CREATININE CLEARANCE IN PREDICTING GLOMERULAR FILTRATION RATE. ESTIMATED GFR IS NOT APPLICABLE FOR DIALYSIS PATIENTS. Specimen Blood - Arm, Right Performing Organization Address City/State/Zipcode Phone Number [facility] [address] [place] [address] CENTER ECHOCARDIOGRAM REPORT - SCAN (05/20/2018 9:50 AM CDT) Narrative Performed At 2D Echo W/Doppler(CW/PW/Color) (05/20/2018 9:24 AM CDT) Ejection Fraction [facility] Narrative Performed At Transthoracic Echocardiography Report (TTE) [facility] Demographics Patient Name Catherine SEXTON of Study 05/20/2018 RIOS [id number] GenderMale Visit Number [id number] Room Number 8A11 Number Date of Birth1930Referring Physician Cristobal Moreno MD Age87 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(s)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 Loading Jamari Matute [facility] AnalystAlex Joaquin Bejarano Physician Procedure Type of [...] Study 05/20/2018 RIOS Gender Male Visit Number [id number] Race Room Number 8A11 Number Date of 1930 Referring Physician Cristobal Moreno MD Age 87 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) 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 Loading Jamari Matute [facility] Rn Intensive Care Unit Sean Nuñez Interpreting Andrews Bejarano, Physician Procedure [...] LVOT VTI: 22.17 cm Performing Organization Address [facility] Phone Number [facility]ART[facility] Urinalysis w/Microscopic (05/19/2018 11:32 PM CDT) Color, UA Yellow [facility] Clarity, UA Clear [facility] Specific [place], UA 1.017 1.001 - 1.035 [facility] pH, UA 5.0 5.0 - 8.0 [facility] Protein, UA Negative Negative [facility] Glucose, UA Negative Negative [facility] Ketones, UA Negative Negative [facility] Bilirubin, UA Negative Negative [facility] Blood, UA Small (A) Negative [facility] Nitrite, UA Negative Negative [facility] Leukocytes, UA Negative Negative [facility] Urobilinogen, UA 0.2 0.2 - 1.0 mg/dL [facility] RBC, UA 12 /HPF [facility] WBC, UA 1 /HPF [facility] Mucus Rare [facility] Amorphous Crystals Occasional [facility] Specimen Source Urine, Corral [facility] Specimen Urine - Urine, Corral Performing Organization Address [facility]/Zipcode Phone Number [address] [phone] [place] Urine culture (05/19/2018 11:31 PM CDT) Result No growth [facility] Specimen Urine - Urine, [place] Performing Organization Address [facility] Cent[facility]ofl Phone Number [address] [phone] [place] Blood culture (05/19/2018 11:23 PM CDT)Only the most recent of2 resultswithin the time period is included. Result No growth in 5 days [facility] Specimen Blood - Arm, Left Performing Organization Address [facility] Phone Number [address] [address] [phone] [place] POC-Lactic Acid, Arterial (05/19/2018 9:17 PM CDT) POC-Lactic Acid, 1.5 (H)Comment: 0.4 - 1.3 mmol/L [facility] Arterial TESTED AT [address] [address] Specimen Blood Performing Organization Address [facility] Phone Number [address] [address] [place] POCT-HEMATOCRIT (05/19/2018 9:07 PM CDT) POC-Hematocrit 32 (L)Comment: TESTED AT 40 - 50 % [address] [address] Specimen Blood Performing Organization Address [facility] Centercofl Phone Number [address] [address] [place] POCT-HEMOGLOBIN (05/19/2018 9:07 PM CDT) POC-Hemoglobin 10.9 (L)Comment: TESTED AT 13.0 - 16.8 g/dL [address] [address]VBVQHI AT [address] [address] Specimen Blood Performing Organization Address City/[facility]/Zipcode Phone Number [address] [address] [phone] [place] POCT-GLUCOSE (05/19/2018 9:07 PM CDT) POC-Glucose 152 (H)Comment: TESTED AT 70 - 110 mg/dL [address] [address] Specimen Blood Performing Organization Address City/[facility] Centercode Phone Number [address] [address] [place] POC-Sodium (05/19/2018 9:07 PM CDT) POC-Sodium 137Comment: TESTED AT [facility] 135 - 148 meq/L [address] [address] Specimen Blood Performing Organization Address [facility] Centercofl Phone Number [address] [address] [place] POC-Potassium (05/19/2018 9:07 PM CDT) POC-Potassium 3.6Comment: TESTED AT [facility] 3.6 - 5.5 meq/L [address] [address] Specimen Blood Performing Organization Address [facility] Cent[facility]ofl Phone Number [address] [address] [place] POC-Calcium ionized (05/19/2018 9:07 PM CDT) POC-Calcium Ionized 1.19Comment: TESTED AT 1.12 - 1.27 mmol/L [address] [address] Specimen Blood Performing Organization Address City/[facility] Centercode Phone Number [address] [phone] CENTER POC-Blood gases, arterial (05/19/2018 9:07 PM CDT) Temp. Celsius-POC 37.1 [facility] FIO2-POC 29Comment: TESTED AT [facility] [address] [facility] [address] pH, Arterial-POC 7.468 (H) 7.350 - 7.450 [facility] PCO2, Arterial-POC 34.4 (L) 35.0 - 45.0 mm Hg [facility] PO2, Arterial-POC 63.0 (L) 80.0 - 90.0 mm Hg [facility] SO2, Arterial-POC 93.0 (L) 96.0 - 97.0 % [facility] HCO3, Arterilal-POC 24.9 21.0 - 29.0 meq/L [facility] BE, Arterial-POC 1.0 -2.0 - 3.0 meq/L [facility] Specimen Blood Performing Organization Address City/State/Zipcode Phone Number [address] brain/stroke test design (05/19/2018 8:42 PM CDT) Narrative Performed At FINAL REPORT [facility] CT head without contrast 05/19/2018 8:43 PM [...] MD Report Verified Date/Time:05/19/2018 20:46:09 Reading Location: [facility] Radiology Reading Room Procedure Note Interface, [...] Report Verified Date/Time: 05/19/2018 20:46:09 Reading Location: [facility] Radiology Reading Room Performing Organization Address City/State/Zipcode Phone Number RIS Prepare RBC (05/19/2018 10:47 AM CDT) CROSSMATCH COMPATIBLE SAFETRACE TX Unit ABO O Pos SAFETRACE TX UNIT NUMBER [id number] SAFETRACE TX Status RETURNED FROM ISSUE SAFETRACE TX Blood Bank Product RED BLOOD CELLS SAFETRACE TX PRODUCT CODE [id number] SAFETRACE TX CROSSMATCH COMPATIBLE SAFETRACE TX Unit ABO O Pos SAFETRACE TX UNIT NUMBER [id number] SAFETRACE TX Status RETURNED FROM ISSUE SAFETRACE TX Blood Bank Product RED BLOOD CELLS SAFETRACE TX PRODUCT CODE [id number] SAFETRACE TX CROSSMATCH COMPATIBLE SAFETRACE TX Unit ABO O Pos SAFETRACE TX UNIT NUMBER [id number] SAFETRACE TX Status RETURNED FROM ISSUE SAFETRACE TX Blood Bank Product RED BLOOD CELLS SAFETRACE TX PRODUCT CODE [id number] SAFETRACE TX CROSSMATCH COMPATIBLE SAFETRACE TX Unit ABO O Pos SAFETRACE TX UNIT NUMBER [id number] SAFETRACE TX Status RETURNED FROM ISSUE SAFETRACE TX Blood Bank Product RED BLOOD CELLS SAFETRACE TX PRODUCT CODE [id number] SAFETRACE TX Performing Organization Address [facility] Centercode Phone Number SAFETRACE TX POC ACTIVATED CLOTTING TIME (05/19/2018 8:59 AM CDT) Activated Clotting Time 329Comment: TESTED AT [address] [address] Specimen Blood Performing Organization Address [facility] Phone Number [address] [phone] CENTER 2D Echo W/Doppler(CW/PW/Color) (05/19/2018 7:51 AM CDT) Ejection Fraction [facility]CHO [facility] Narrative Performed At Transthoracic Echocardiography Report (TTE) [facility] ECHO [facility] Demographics Patient Name Catherine SEXTON of Study 05/19/2018 RIOS [id number] GenderMale Visit Number [id number] Room Number 8A11 Number Date of Birth1930Referring Physician Cristobal Moreno MD 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 Performing Organization Address City/[facility]/Zipcode Phone Number [facility] ECHO HEART[facility] B-type Natriuretic Factor (BNP) (04/21/2018 1:51 PM CDT) BNP 785 (H) 0 - 100 pg/mL [facility] Specimen Blood Performing Organization Address City/State/Zipcode Phone Number [place] [phone] [place] [address] [phone] CENTER CTA chest (04/19/2018 10:17 AM CDT) Narrative Performed At Addendum Begins [place] [facility] REPORT STATUS:A Addendum: I agree with the previously described non vascular findings.. Additionally, the lungs demonstrate fibrotic changes which are most pronounced in the bilateral bases. Biapical pleural-parenchymal scarring is present. Signed: Dejon Bland MD Report Verified Date/Time:04/20/2018 12:54:28 Reading Location: [facility] P048 Angio Body Reading Room Addendum [...] measures 7.3 and 7.9 mm, respectively with ztfx-kz-nvkddmzxprdmbcgtxl and nocalcific atherosclerosis present. The minimum and [...] 5.An addendum will be dictated by the Chef Head Radiologist regarding the nonvascular findings. Signed: Puneet Espinoza MD Report Verified Date/Time:04/19/2018 14:19:03 Reading Location: [place] [address] Cardiology MRI Procedure Note Interface, External Ris In - 04/20/2018 12:56 PM CDT Addendum Begins REPORT STATUS:A Addendum: I agree with the previously described non vascular findings.. Additionally, the lungs demonstrate fibrotic changes which are most pronounced in the bilateral bases. Biapical pleural-parenchymal scarring is present. Signed: Dejon Bland MD Report Verified Date/Time: 04/20/2018 12:54:28 Reading Location: [place] [address] Angio Body Reading Room Addendum Ends FINAL [...] measures 7.3 and 7.9 mm, respectively with yuzh-yj-zzpbuhyb tortuosity and no calcific atherosclerosis present. The [...] An addendum will be dictated by the Chef Head Radiologist regarding the nonvascular findings. Signed: Puneet Espinoza MD Report Verified Date/Time: 04/19/2018 14:19:03 Reading Location: [place] [address] Cardiology MRI Performing Organization Address City/State/Zipcode Phone Number [facility] CTA abdomen & pelvis (04/19/2018 10:17 AM CDT) Narrative Performed At Addendum Begins [facility] REPORT STATUS:A Addendum: I agree with the previously described non vascular findings.. Additionally, the lungs demonstrate fibrotic changes which are most pronounced in the bilateral bases. Biapical pleural-parenchymal scarring is present. Signed: Dejon Bland MD Report Verified Date/Time:04/20/2018 12:54:28 Reading Location: [place] [id number] Angio Body Reading Room Addendum Ends FINAL [...] measures 7.3 and 7.9 mm, respectively with mwug-dl-qyngeujaqxwlbdkncl and nocalcific atherosclerosis present. The minimum and [...] 5.An addendum will be dictated by the Chef Head Radiologist regarding the nonvascular findings. Signed: Puneet Espinoza MD Report Verified Date/Time:04/19/2018 14:19:03 Reading Location: [place] [id number] Cardiology MRI Procedure Note Interface, External Ris In - 04/20/2018 12:56 PM CDT Addendum Begins REPORT STATUS:A Addendum: I agree with the previously described non vascular findings.. Additionally, the lungs demonstrate fibrotic changes which are most pronounced in the bilateral bases. Biapical pleural-parenchymal scarring is present. Signed: Dejon Bland MD Report Verified Date/Time: 04/20/2018 12:54:28 Reading Location: [facility] P048 Angio Body Reading Room Addendum [...] measures 7.3 and 7.9 mm, respectively with omnb-tl-kjxqexvy tortuosity and no calcific atherosclerosis present. The [...] An addendum will be dictated by the Chef Head Radiologist regarding the nonvascular findings. Signed: Puneet Espinoza MD Report Verified Date/Time: 04/19/2018 14:19:03 Reading Location: [place] [address] Cardiology MRI Performing Organization Address City/[facility] Centercode Phone Number [facility] [place] POC-Creatinine (04/19/2018 9:34 AM CDT) POC-Creatinine 1.3Comment: TESTED AT 0.6 - 1.3 mg/dL [facility] [address] [place] [address] POC-EGFR 52 mL/min/1.73M2 [facility] Specimen Blood Performing Organization Address City/[facility] Centercode Phone Number [facility] [address] [place] [address] CENTER after 11/09/2017 Insurance Payer Benefit Plan / Group Subscriber ID Type Phone Address MEDICARE MEDICARE A B xxxxxxxxxx Medicare AETNA - MGD CARE AETNA INDEMNITY NON CONTR xxxxxxxxxx Comm Advance Directives For more information, please contact:[address] [phone] Code Status Date Activated Date Inactivated Comments Full Code 05/19/2018 5:27 AM 05/30/2018 5:08 PM This code status was determined by: Patient
--- OUTSIDE RECORDS SUMMARY | 2018-11-10 15:05 | XMS REPORT ---
:1930 [facility] [address] [place] [address] Care Team Providers Name Role Phone TONIE [...] (test 112 mg/dL 70-110 TESTED AT [address] zawz=5201) [facility] [address] POCT-GLUCOSE [id number] 08:17:00 Test Item Value Reference Range Comments POC-GLUCOSE METER (BEAKER) 98 mg/dL 70-110 TESTED AT [address] (test zjvh=0024) [place] [id number] BASIC METABOLIC [id number] 06:16:00 Test Item Value Reference Range Comments SODIUM (BEAKER) (test 136 meq/L 136-145 uttv=099) POTASSIUM (BEAKER) (test 3.7 meq/L 3.5-5.1 uekc=697) CHLORIDE (BEAKER) (test 101 meq/L 98-107 ecgm=183) CO2 (BEAKER) (test 26 meq/L 22-29 ncfz=501) BLOOD UREA NITROGEN 28 mg/dL 7-21 (BEAKER) (test yqql=178) CREATININE (BEAKER) (test 1.31 mg/dL 0.57-1.25 rcxw=562) GLUCOSE RANDOM (BEAKER) 74 mg/dL 70-105 (test fvdg=239) CALCIUM (BEAKER) (test 8.9 mg/dL 8.4-10.2 ltbv=465) EGFR (BEAKER) (test 52 mL/min/1.73 sq m ESTIMATED GFR IS NOT punm=6160) ACCURATE CREATININE CLEARANCE IN PREDICTING GLOMERULAR FILTRATION RATE. ESTIMATED GFR IS NOT APPLICABLE FOR DIALYSIS PATIENTS. PROTHROMBIN TIME/[id number] 05:42:00 Test Item Value Reference Range Comments PROTIME (BEAKER) (test zeea=759) 22.3 seconds 11.7-14.7 INR (BEAKER) (test keab=538) 2.0 <=5.9 RECOMMENDED COUMADIN/WARFARIN INR THERAPY RANGESSTANDARD DOSE: 2.0 - 3.0 Includes: PROPHYLAXIS forvenous thrombosis, systemic embolization; TREATMENT for venous thrombosis and/or pulmonary embolus.HIGH RISK: Target INR is 2.5-3.5 for patients with mechanical heart valves.CBC (HEMOGRAM ONLY)2018-05-30 05:34:00 Test Item Value Reference Range Comments WHITE BLOOD CELL COUNT (BEAKER) (test khuu=690) 10.0 K/ L 3.5-10.5 RED BLOOD CELL COUNT (BEAKER) (test blzn=190) 3.44 M/ L 4.63-6.08 HEMOGLOBIN (BEAKER) (test lyaf=301) 9.6 GM/DL 13.7-17.5 HEMATOCRIT (BEAKER) (test jmyk=991) 30.8 % 40.1-51.0 MEAN CORPUSCULAR VOLUME (BEAKER) (test tyyq=158) 89.5 fL 79.0-92.2 MEAN CORPUSCULAR HEMOGLOBIN (BEAKER) (test 27.9 pg 25.7-32.2 your=476) MEAN CORPUSCULAR HEMOGLOBIN CONC (BEAKER) (test 31.2 GM/DL 32.3-36.5 lsis=002) RED CELL DISTRIBUTION WIDTH (BEAKER) (test 16.1 % 11.6-14.4 kugx=824) PLATELET COUNT (BEAKER) (test uyle=354) 169 K/CU MM 150-450 MEAN PLATELET VOLUME (BEAKER) (test oopv=498) 11.5 fL 9.4-12.4 NUCLEATED RED BLOOD CELLS (BEAKER) (test 0 /100 WBC 0-0 qqbu=637) POCT-GLUCOSE [id number] 21:35:00 Test Item Value Reference Range Comments POC-GLUCOSE METER (BEAKER) 203 mg/dL 70-110 TESTED AT [address] (test pbdp=0472) [place] [id number] POCT-GLUCOSE [id number] 16:47:00 Test Item Value Reference Range Comments POC-GLUCOSE METER (BEAKER) 177 mg/dL 70-110 TESTED AT [address] (test scoa=2090) [place] [id number] POCT-GLUCOSE [id number] 12:17:00 Test Item Value Reference Range Comments POC-GLUCOSE METER (BEAKER) 139 mg/dL 70-110 TESTED AT [address] (test vrhg=5888) [place] [id number] POCT-GLUCOSE [id number] 08:38:00 Test Item Value Reference Range Comments POC-GLUCOSE METER (BEAKER) 83 mg/dL 70-110 TESTED AT [address] (test eleh=9614) [place] [id number] PROTHROMBIN [id number] 06:39:00 Test Item Value Reference Range Comments PROTIME (BEAKER) (test tbnw=968) 23.6 seconds 11.7-14.7 INR (BEAKER) (test rjeu=341) 2.1 <=5.9 RECOMMENDED COUMADIN/WARFARIN INR THERAPY RANGESSTANDARD DOSE: 2.0 - 3.0 Includes: PROPHYLAXIS forvenous thrombosis, systemic embolization; TREATMENT for venous thrombosis and/or pulmonary embolus.HIGH RISK: Target INR is 2.5-3.5 for patients with mechanical heart valves.POCT-GLUCOSE [id number] 21:31:00 Test Item Value Reference Range Comments POC-GLUCOSE METER (BEAKER) 187 mg/dL 70-110 TESTED AT [address] (test rcuu=9858) [place] [id number] POCT-GLUCOSE [id number] 11:55:00 Test Item Value Reference Range Comments POC-GLUCOSE METER (BEAKER) 250 mg/dL 70-110 TESTED AT [address] (test krex=3209) [place] [id number] POCT-GLUCOSE [id number] 07:55:00 Test Item Value Reference Range Comments POC-GLUCOSE METER (BEAKER) 156 mg/dL 70-110 TESTED AT [address] (test xdmi=8031) [place] [address] [id number] 07:33:00 Test Item Value Reference Range Comments MAGNESIUM (BEAKER) (test zexi=333) 2.3 mg/dL 1.6-2.6 PROTHROMBIN TIME/[id number] 06:33:00 Test Item Value Reference Range Comments PROTIME (BEAKER) (test feqv=414) 20.3 seconds 11.7-14.7 INR (BEAKER) (test mmqo=155) 1.7 <=5.9 RECOMMENDED COUMADIN/WARFARIN INR THERAPY RANGESSTANDARD DOSE: 2.0 - 3.0 Includes: PROPHYLAXIS forvenous thrombosis, systemic embolization; TREATMENT for venous thrombosis and/or pulmonary embolus.HIGH RISK: Target INR is 2.5-3.5 for patients with mechanical heart valves.BASIC METABOLIC [id number] 21:18: 00 Test Item Value Reference Range Comments SODIUM (BEAKER) (test 137 meq/L 136-145 ammi=500) POTASSIUM (BEAKER) (test 4.1 meq/L 3.5-5.1 uvbt=335) CHLORIDE (BEAKER) (test 102 meq/L 98-107 iuyu=090) CO2 (BEAKER) (test 26 meq/L 22-29 ucha=189) BLOOD UREA NITROGEN 32 mg/dL 7-21 (BEAKER) (test xsmy=045) CREATININE (BEAKER) (test 1.30 mg/dL 0.57-1.25 yhnq=315) GLUCOSE RANDOM (BEAKER) 95 mg/dL 70-105 (test ohfj=020) CALCIUM (BEAKER) (test 9.1 mg/dL 8.4-10.2 yhfg=573) EGFR (BEAKER) (test 52 mL/min/1.73 sq m ESTIMATED GFR IS NOT vhkt=1240) ACCURATE CREATININE CLEARANCE IN PREDICTING GLOMERULAR FILTRATION RATE. ESTIMATED GFR IS NOT APPLICABLE FOR DIALYSIS PATIENTS. POCT-GLUCOSE [id number] 21:16:00 Test Item Value Reference Range Comments POC-GLUCOSE METER (BEAKER) 94 mg/dL 70-110 TESTED AT [facility] [address] [facility] (test kdpw=9536) [facility] [address] CBC (HEMOGRAM ONLY)2018-05-27 21:04:00 Test Item Value Reference Range Comments WHITE BLOOD CELL COUNT (BEAKER) (test pugi=384) 11.1 K/ L 3.5-10.5 RED BLOOD CELL COUNT (BEAKER) (test mbvb=825) 3.63 M/ L 4.63-6.08 HEMOGLOBIN (BEAKER) (test ryvb=282) 10.1 GM/DL 13.7-17.5 HEMATOCRIT (BEAKER) (test rjna=330) 32.6 % 40.1-51.0 MEAN CORPUSCULAR VOLUME (BEAKER) (test fkrn=502) 89.8 fL 79.0-92.2 MEAN CORPUSCULAR HEMOGLOBIN (BEAKER) (test 27.8 pg 25.7-32.2 emgk=691) MEAN CORPUSCULAR HEMOGLOBIN CONC (BEAKER) (test 31.0 GM/DL 32.3-36.5 mkst=383) RED CELL DISTRIBUTION WIDTH (BEAKER) (test 15.9 % 11.6-14.4 nxka=489) PLATELET COUNT (BEAKER) (test nvor=851) 171 K/CU MM 150-450 MEAN PLATELET VOLUME (BEAKER) (test ingu=267) 11.4 fL 9.4-12.4 NUCLEATED RED BLOOD CELLS (BEAKER) (test 0 /100 WBC 0-0 znnz=707) POCT-GLUCOSE [id number] 17:03:00 Test Item Value Reference Range Comments POC-GLUCOSE METER (BEAKER) 226 mg/dL 70-110 TESTED AT [address] (test uvjr=1030) [place] [address] POCT-GLUCOSE [id number] 11:53:00 Test Item Value Reference Range Comments POC-GLUCOSE METER (BEAKER) 154 mg/dL 70-110 TESTED AT [address] (test gkle=6292) [place] [id number] POCT-GLUCOSE [id number] 07:58:00 Test Item Value Reference Range Comments POC-GLUCOSE METER (BEAKER) 78 mg/dL 70-110 TESTED AT [address] (test glhx=4920) [place] [address] [id number] 06:27:00 Test Item Value Reference Range Comments MAGNESIUM (BEAKER) (test ahrr=304) 2.1 mg/dL 1.6-2.6 PROTHROMBIN TIME/[id number] 05:53:00 Test Item Value Reference Range Comments PROTIME (BEAKER) (test bytt=073) 19.1 seconds 11.7-14.7 INR (BEAKER) (test gskk=180) 1.6 <=5.9 RECOMMENDED COUMADIN/WARFARIN INR THERAPY RANGESSTANDARD DOSE: 2.0 - 3.0 Includes: PROPHYLAXIS forvenous thrombosis, systemic embolization; TREATMENT for venous thrombosis and/or pulmonary embolus.HIGH RISK: Target INR is 2.5-3.5 for patients with mechanical heart valves.POCT-GLUCOSE [id number] 21:34:00 Test Item Value Reference Range Comments POC-GLUCOSE METER (BEAKER) 221 mg/dL 70-110 TESTED AT [address] (test vglw=8416) [place] [id number] POCT-GLUCOSE [id number] 18:12:00 Test Item Value Reference Range Comments POC-GLUCOSE METER (BEAKER) 173 mg/dL 70-110 TESTED AT [address] (test tlvb=9548) [place] [address] POCT-GLUCOSE [id number] 12:42:00 Test Item Value Reference Range Comments POC-GLUCOSE METER (BEAKER) 286 mg/dL 70-110 TESTED AT [address] (test xcjr=4932) [place] [address] POCT-GLUCOSE [id number] 08:40:00 Test Item Value Reference Range Comments POC-GLUCOSE METER (BEAKER) 91 mg/dL 70-110 TESTED AT [address] (test xlzj=6063) [place] [address] [id number] 07:52:00 Test Item Value Reference Range Comments MAGNESIUM (BEAKER) (test kbwi=417) 2.2 mg/dL 1.6-2.6 PROTHROMBIN [id number] 07:30:00 Test Item Value Reference Range Comments PROTIME (BEAKER) (test evmt=003) 15.1 seconds 11.7-14.7 INR (BEAKER) (test wufp=348) 1.2 <=5.9 RECOMMENDED COUMADIN/WARFARIN INR THERAPY RANGESSTANDARD DOSE: 2.0 - 3.0 Includes: PROPHYLAXIS forvenous thrombosis, systemic embolization; TREATMENT for venous thrombosis and/or pulmonary embolus.HIGH RISK: Target INR is 2.5-3.5 for patients with mechanical heart valves.CBC W/PLT COUNT & AUTO [id number] 07:24:00 Test Item Value Reference Range Comments WHITE BLOOD CELL COUNT (BEAKER) (test qsdb=695) 12.2 K/ L 3.5-10.5 RED BLOOD CELL COUNT (BEAKER) (test gsxd=278) 3.70 M/ L 4.63-6.08 HEMOGLOBIN (BEAKER) (test hhac=944) 10.6 GM/DL 13.7-17.5 HEMATOCRIT (BEAKER) (test yfas=782) 33.2 % 40.1-51.0 MEAN CORPUSCULAR VOLUME (BEAKER) (test feca=734) 89.7 fL 79.0-92.2 MEAN CORPUSCULAR HEMOGLOBIN (BEAKER) (test 28.6 pg 25.7-32.2 ayqj=686) MEAN CORPUSCULAR HEMOGLOBIN CONC (BEAKER) (test 31.9 GM/DL 32.3-36.5 gtvn=921) RED CELL DISTRIBUTION WIDTH (BEAKER) (test 15.9 % 11.6-14.4 zbdi=078) PLATELET COUNT (BEAKER) (test qlvj=344) 137 K/CU MM 150-450 MEAN PLATELET VOLUME (BEAKER) (test jbsk=331) 11.1 fL 9.4-12.4 NUCLEATED RED BLOOD CELLS (BEAKER) (test 0 /100 WBC 0-0 minu=655) NEUTROPHILS RELATIVE PERCENT (BEAKER) (test 54 % mzvz=517) LYMPHOCYTES RELATIVE PERCENT (BEAKER) (test 33 % bwum=657) MONOCYTES RELATIVE PERCENT (BEAKER) (test 8 % xznc=692) EOSINOPHILS RELATIVE PERCENT (BEAKER) (test 3 % kvcw=003) BASOPHILS RELATIVE PERCENT (BEAKER) (test 0 % ugkl=143) NEUTROPHILS ABSOLUTE COUNT (BEAKER) (test 6.59 K/ L 1.78-5.38 ehjt=234) LYMPHOCYTES ABSOLUTE COUNT (BEAKER) (test 3.96 K/ L 1.32-3.57 naph=203) MONOCYTES ABSOLUTE COUNT (BEAKER) (test 1.00 K/ L 0.30-0.82 mgqv=789) EOSINOPHILS ABSOLUTE COUNT (BEAKER) (test 0.30 K/ L 0.04-0.54 ajkm=392) BASOPHILS ABSOLUTE COUNT (BEAKER) (test 0.05 K/ L 0.01-0.08 nled=247) IMMATURE GRANULOCYTES-RELATIVE PERCENT (BEAKER) 2 % 0-1 (test xspf=3787) POCT-GLUCOSE [id number] 22:05:00 Test Item Value Reference Range Comments POC-GLUCOSE METER (BEAKER) 122 mg/dL 70-110 TESTED AT [facility] [address] (test pnkb=7088) [facility] [address] BASIC METABOLIC [id number] 21:48:00 Test Item Value Reference Range Comments SODIUM (BEAKER) (test 135 meq/L 136-145 dsru=449) POTASSIUM (BEAKER) (test 4.2 meq/L 3.5-5.1 krwn=618) CHLORIDE (BEAKER) (test 101 meq/L 98-107 iyvi=196) CO2 (BEAKER) (test 25 meq/L 22-29 xlqn=799) BLOOD UREA NITROGEN 27 mg/dL 7-21 (BEAKER) (test kjes=264) CREATININE (BEAKER) (test 1.09 mg/dL 0.57-1.25 lkmw=846) GLUCOSE RANDOM (BEAKER) 139 mg/dL 70-105 (test dqgd=648) CALCIUM (BEAKER) (test 9.5 mg/dL 8.4-10.2 orwi=655) EGFR (BEAKER) (test 64 mL/min/1.73 sq m ESTIMATED GFR IS NOT zxjv=5799) ACCURATE CREATININE CLEARANCE IN PREDICTING GLOMERULAR FILTRATION RATE. ESTIMATED GFR IS NOT APPLICABLE FOR DIALYSIS PATIENTS. CBC (HEMOGRAM ONLY)2018-05-25 21:37:00 Test Item Value Reference Range Comments WHITE BLOOD CELL COUNT (BEAKER) (test nafj=555) 17.3 K/ L 3.5-10.5 RED BLOOD CELL COUNT (BEAKER) (test ruui=851) 3.84 M/ L 4.63-6.08 HEMOGLOBIN (BEAKER) (test xobu=756) 11.0 GM/DL 13.7-17.5 HEMATOCRIT (BEAKER) (test zydi=302) 33.5 % 40.1-51.0 MEAN CORPUSCULAR VOLUME (BEAKER) (test edco=873) 87.2 fL 79.0-92.2 MEAN CORPUSCULAR HEMOGLOBIN (BEAKER) (test 28.6 pg 25.7-32.2 ldlo=925) MEAN CORPUSCULAR HEMOGLOBIN CONC (BEAKER) (test 32.8 GM/DL 32.3-36.5 vskj=561) RED CELL DISTRIBUTION WIDTH (BEAKER) (test 15.8 % 11.6-14.4 nckc=126) PLATELET COUNT (BEAKER) (test ngyj=904) 151 K/CU MM 150-450 MEAN PLATELET VOLUME (BEAKER) (test asri=442) 11.6 fL 9.4-12.4 NUCLEATED RED BLOOD CELLS (BEAKER) (test 0 /100 WBC 0-0 elik=596) CT, BRAIN, WITHOUT [id number] 19:17:00FINAL REPORT CT head without contrast 05/25/2018 [...] Boykin Verified Date/Time: 2017 19:17:21 Reading Location: [facility] Radiology Reading Room Electronicallysigned by: MICHEAL BOYKIN M.D. on 05/25/2018 07:17 PMPOCT- GLUCOSE [id number] 17:10:00 Test Item Value Reference Range Comments POC-GLUCOSE METER (BEAKER) 186 mg/dL 70-110 TESTED AT [facility] [address] [facility] (test gxwd=6497) [facility] [address] POCT-GLUCOSE [id number] 11:53:00 Test Item Value Reference Range Comments POC-GLUCOSE METER (BEAKER) 152 mg/dL 70-110 TESTED AT [facility] [address] [facility] (test lktn=5358) [facility] [address] POCT-GLUCOSE [id number] 08:24:00 Test Item Value Reference Range Comments POC-GLUCOSE METER (BEAKER) 126 mg/dL 70-110 TESTED AT [facility] [address] [facility] (test shld=2027) [facility] [address] BASIC METABOLIC [id number] 06:46:00 Test Item Value Reference Range Comments SODIUM (BEAKER) (test 137 meq/L 136-145 qqls=456) POTASSIUM (BEAKER) (test 3.8 meq/L 3.5-5.1 Specimen slightly gpkh=306) hemolyzed CHLORIDE (BEAKER) (test 101 meq/L 98-107 ocsy=569) CO2 (BEAKER) (test 25 meq/L 22-29 syci=065) BLOOD UREA NITROGEN 26 mg/dL 7-21 (BEAKER) (test exyr=921) CREATININE (BEAKER) (test 0.94 mg/dL 0.57-1.25 Specimen slightly lppy=394) hemolyzed GLUCOSE RANDOM (BEAKER) 110 mg/dL 70-105 (test enkn=195) CALCIUM (BEAKER) (test 9.2 mg/dL 8.4-10.2 uvun=059) EGFR (BEAKER) (test 76 mL/min/1.73 sq m ESTIMATED GFR IS NOT jult=7646) ACCURATE CREATININE CLEARANCE IN PREDICTING GLOMERULAR FILTRATION RATE. ESTIMATED GFR IS NOT APPLICABLE FOR DIALYSIS PATIENTS. BLOOD [id number] 06:00:00 Test Item Value Reference Range Comments CULTURE (BEAKER) (test vick=6249) No growth in 5 days BLOOD [id number] 06:00:00 Test Item Value Reference Range Comments CULTURE (BEAKER) (test mdqd=6359) No growth in 5 days [id number] 05:50:00 Test Item Value Reference Range Comments MAGNESIUM (BEAKER) (test 2.3 mg/dL 1.6-2.6 Specimen slightly hemolyzed edqx=961) PROTHROMBIN TIME/[id number] 05:44:00 Test Item Value Reference Range Comments PROTIME (BEAKER) (test veyx=316) 13.8 seconds 11.7-14.7 INR (BEAKER) (test unge=778) 1.1 <=5.9 RECOMMENDED COUMADIN/WARFARIN INR THERAPY RANGESSTANDARD DOSE: 2.0 - 3.0 Includes: PROPHYLAXIS forvenous thrombosis, systemic embolization; TREATMENT for venous thrombosis and/or pulmonary embolus.HIGH RISK: Target INR is 2.5-3.5 for patients with mechanical heart valves.POCT-GLUCOSE [id number] 22:35:00 Test Item Value Reference Range Comments POC-GLUCOSE METER (BEAKER) 216 mg/dL 70-110 TESTED AT [address] (test ofrw=7853) [facility] [address] POCT-GLUCOSE [id number] 17:10:00 Test Item Value Reference Range Comments POC-GLUCOSE METER (BEAKER) 240 mg/dL 70-110 TESTED AT [address] (test ojfd=7119) [facility] [address] POCT-GLUCOSE [id number] 12:11:00 Test Item Value Reference Range Comments POC-GLUCOSE METER (BEAKER) 172 mg/dL 70-110 TESTED AT [address] (test crub=6185) [facility] [address] [id number] 04:19:00 Test Item Value Reference Range Comments MAGNESIUM (BEAKER) (test cnda=175) 2.2 mg/dL 1.6-2.6 BASIC METABOLIC [id number] 04:19:00 Test Item Value Reference Range Comments SODIUM (BEAKER) (test 140 meq/L 136-145 foec=576) POTASSIUM (BEAKER) (test 3.6 meq/L 3.5-5.1 scvf=725) CHLORIDE (BEAKER) (test 105 meq/L 98-107 udyi=129) CO2 (BEAKER) (test 28 meq/L 22-29 wylr=900) BLOOD UREA NITROGEN 33 mg/dL 7-21 (BEAKER) (test ijbf=697) CREATININE (BEAKER) (test 0.96 mg/dL 0.57-1.25 mdfa=576) GLUCOSE RANDOM (BEAKER) 128 mg/dL 70-105 (test fnfg=415) CALCIUM (BEAKER) (test 9.0 mg/dL 8.4-10.2 cxto=736) EGFR (BEAKER) (test 74 mL/min/1.73 sq m ESTIMATED GFR IS NOT yuaq=9035) ACCURATE CREATININE CLEARANCE IN PREDICTING GLOMERULAR FILTRATION RATE. ESTIMATED GFR IS NOT APPLICABLE FOR DIALYSIS PATIENTS. PROTHROMBIN TIME/[id number] 03:49:00 Test Item Value Reference Range Comments PROTIME (BEAKER) (test flrw=266) 13.8 seconds 11.7-14.7 INR (BEAKER) (test sutz=161) 1.1 <=5.9 RECOMMENDED COUMADIN/WARFARIN INR THERAPY RANGESSTANDARD DOSE: 2.0 - 3.0 Includes: PROPHYLAXIS forvenous thrombosis, systemic embolization; TREATMENT for venous thrombosis and/or pulmonary embolus.HIGH RISK: Target INR is 2.5-3.5 for patients with mechanical heart valves.While on warfarin.CBC (HEMOGRAM ONLY) 2018-05-24 03:43:00 Test Item Value Reference Range Comments WHITE BLOOD CELL COUNT (BEAKER) (test vavi=652) 8.8 K/ L 3.5-10.5 RED BLOOD CELL COUNT (BEAKER) (test aehe=261) 3.23 M/ L 4.63-6.08 HEMOGLOBIN (BEAKER) (test zzsb=529) 9.2 GM/DL 13.7-17.5 HEMATOCRIT (BEAKER) (test jjff=923) 28.5 % 40.1-51.0 MEAN CORPUSCULAR VOLUME (BEAKER) (test klrw=212) 88.2 fL 79.0-92.2 MEAN CORPUSCULAR HEMOGLOBIN (BEAKER) (test 28.5 pg 25.7-32.2 dyvn=675) MEAN CORPUSCULAR HEMOGLOBIN CONC (BEAKER) (test 32.3 GM/DL 32.3-36.5 tfbr=412) RED CELL DISTRIBUTION WIDTH (BEAKER) (test 15.0 % 11.6-14.4 vcif=883) PLATELET COUNT (BEAKER) (test xchc=948) 87 K/CU MM 150-450 MEAN PLATELET VOLUME (BEAKER) (test ovpb=821) 11.6 fL 9.4-12.4 NUCLEATED RED BLOOD CELLS (BEAKER) (test 0 /100 WBC 0-0 creo=904) POCT-GLUCOSE [id number] 23:13:00 Test Item Value Reference Range Comments POC-GLUCOSE METER (BEAKER) 170 mg/dL 70-110 TESTED AT [address] (test wdvt=3112) [facility] [address] POCT-GLUCOSE [id number] 17:11:00 Test Item Value Reference Range Comments POC-GLUCOSE METER (BEAKER) 290 mg/dL 70-110 TESTED AT [address] (test mwff=0813) [facility] [address] CT, BRAIN, WITHOUT [id number] 15:31:00Reason for exam:->Cerebral embolizationWhat is the patient's [...] Boykin Verified Date/Time: 05/23/2018 15:31:32 Reading Location: [facility] B1 C013V Neuro Reading Room POCT-GLUCOSE [id number] 12:34:00 Test Item Value Reference Range Comments POC-GLUCOSE METER (BEAKER) 204 mg/dL 70-110 TESTED AT [address] (test wvef=1507) [facility] [address] [id number] 08:24:00 Test Item Value Reference Range Comments FERRITIN (BEAKER) (test lrtu=265) 435 ng/mL 5-275 POCT-GLUCOSE [id number] 08:21:00 Test Item Value Reference Range Comments POC-GLUCOSE METER (BEAKER) 134 mg/dL 70-110 TESTED AT [facility] [address] [facility] (test vdqx=9691) [facility] [address] IRON, TIBC, % SAT. (WITHOUT FERRITIN)2018-05-23 07:34:00 Test Item Value Reference Range Comments IRON (BEAKER) (test zhqs=709) 63 ug/dL 40-160 TOTAL IRON BINDING CAPACITY (BEAKER) (test 224 ug/dL 250-450 mtfv=743) IRON % SATURATION (2) (BEAKER) (test inub=8592) 28 % 20-55 [id number] 06:45:00 Test Item Value Reference Range Comments PARTIAL THROMBOPLASTIN TIME (BEAKER) (test 94.3 seconds 22.5-36.0 utdh=936) [id number] 06:05:00 Test Item Value Reference Range Comments MAGNESIUM (BEAKER) (test krjg=253) 2.3 mg/dL 1.6-2.6 BASIC METABOLIC [id number] 06:05:00 Test Item Value Reference Range Comments SODIUM (BEAKER) (test 138 meq/L 136-145 hhfr=028) POTASSIUM (BEAKER) (test 3.5 meq/L 3.5-5.1 pfjt=731) CHLORIDE (BEAKER) (test 102 meq/L 98-107 hgaq=104) CO2 (BEAKER) (test 27 meq/L 22-29 xmkq=492) BLOOD UREA NITROGEN 38 mg/dL 7-21 (BEAKER) (test ykjo=101) CREATININE (BEAKER) (test 1.16 mg/dL 0.57-1.25 mhus=805) GLUCOSE RANDOM (BEAKER) 118 mg/dL 70-105 (test msvg=725) CALCIUM (BEAKER) (test 8.9 mg/dL 8.4-10.2 bubl=171) EGFR (BEAKER) (test 60 mL/min/1.73 sq m ESTIMATED GFR IS NOT griy=0616) ACCURATE CREATININE CLEARANCE IN PREDICTING GLOMERULAR FILTRATION RATE. ESTIMATED GFR IS NOT APPLICABLE FOR DIALYSIS PATIENTS. CBC (HEMOGRAM ONLY)2018-05-23 05:55:00 Test Item Value Reference Range Comments WHITE BLOOD CELL COUNT (BEAKER) (test vjdc=791) 9.8 K/ L 3.5-10.5 RED BLOOD CELL COUNT (BEAKER) (test fcoa=373) 2.77 M/ L 4.63-6.08 HEMOGLOBIN (BEAKER) (test nwdz=582) 7.7 GM/DL 13.7-17.5 HEMATOCRIT (BEAKER) (test wnjf=027) 24.0 % 40.1-51.0 MEAN CORPUSCULAR VOLUME (BEAKER) (test yjxh=135) 86.6 fL 79.0-92.2 MEAN CORPUSCULAR HEMOGLOBIN (BEAKER) (test 27.8 pg 25.7-32.2 qsku=098) MEAN CORPUSCULAR HEMOGLOBIN CONC (BEAKER) (test 32.1 GM/DL 32.3-36.5 tbci=112) RED CELL DISTRIBUTION WIDTH (BEAKER) (test 15.9 % 11.6-14.4 eoej=485) PLATELET COUNT (BEAKER) (test wkdo=152) 74 K/CU MM 150-450 MEAN PLATELET VOLUME (BEAKER) (test noxx=357) 11.8 fL 9.4-12.4 NUCLEATED RED BLOOD CELLS (BEAKER) (test 0 /100 WBC 0-0 bpuw=015) [id number] 23:49:00 Test Item Value Reference Range Comments PARTIAL THROMBOPLASTIN TIME (BEAKER) (test 82.0 seconds 22.5-36.0 qpvl=926) POCT-GLUCOSE [id number] 22:25:00 Test Item Value Reference Range Comments POC-GLUCOSE METER (BEAKER) 212 mg/dL 70-110 TESTED AT [address] (test spkn=4897) [place] [address] [id number] 21:32:00 Test Item Value Reference Range Comments PARTIAL THROMBOPLASTIN TIME (BEAKER) (test 131.6 seconds 22.5-36.0 sxpt=715) POCT-GLUCOSE [id number] 17:58:00 Test Item Value Reference Range Comments POC-GLUCOSE METER (BEAKER) 296 mg/dL 70-110 TESTED AT [address] (test oisg=6645) [place] [address] [id number] 14:27:00 Test Item Value Reference Range Comments PARTIAL THROMBOPLASTIN TIME (BEAKER) (test 96.3 seconds 22.5-36.0 ahya=137) URINE [id number] 12:50:00 Test Item Value Reference Range Comments CULTURE (BEAKER) (test ckao=1615) No growth [id number] 12:49:00 Test Item Value Reference Range Comments PARTIAL THROMBOPLASTIN TIME (BEAKER) (test 150.3 seconds 22.5-36.0 piys=896) [id number] 05:53:00 Test Item Value Reference Range Comments PARTIAL THROMBOPLASTIN TIME (BEAKER) (test 44.1 seconds 22.5-36.0 qrss=648) [id number] 03:32:00 Test Item Value Reference Range Comments PROTIME (BEAKER) (test fwdj=254) 15.0 seconds 11.7-14.7 INR (BEAKER) (test vufe=984) 1.2 <=5.9 PARTIAL THROMBOPLASTIN TIME (BEAKER) (test 179.7 seconds 22.5-36.0 iuyn=718) RECOMMENDED COUMADIN/WARFARIN INR THERAPY RANGESSTANDARD DOSE: 2.0 - 3.0 Includes: PROPHYLAXIS forvenous thrombosis, systemic embolization; TREATMENT for venous thrombosis and/or pulmonary embolus.HIGH RISK: Target INR is 2.5-3.5 for patients with mechanical heart valves.[id number] 02:54:00 Test Item Value Reference Range Comments PHOSPHORUS (BEAKER) (test lfqh=808) 3.6 mg/dL 2.3-4.7 [id number] 02:54:00 Test Item Value Reference Range Comments MAGNESIUM (BEAKER) (test lgaz=786) 2.4 mg/dL 1.6-2.6 BASIC METABOLIC [id number] 02:54:00 Test Item Value Reference Range Comments SODIUM (BEAKER) (test 138 meq/L 136-145 hzkk=753) POTASSIUM (BEAKER) (test 3.7 meq/L 3.5-5.1 vtaa=305) CHLORIDE (BEAKER) (test 101 meq/L 98-107 dgyx=227) CO2 (BEAKER) (test 27 meq/L 22-29 fexl=508) BLOOD UREA NITROGEN 44 mg/dL 7-21 (BEAKER) (test pyfb=122) CREATININE (BEAKER) (test 1.30 mg/dL 0.57-1.25 pjad=611) GLUCOSE RANDOM (BEAKER) 131 mg/dL 70-105 (test zeek=586) CALCIUM (BEAKER) (test 8.9 mg/dL 8.4-10.2 bcki=278) EGFR (BEAKER) (test 52 mL/min/1.73 sq m ESTIMATED GFR IS NOT lohx=6965) ACCURATE CREATININE CLEARANCE IN PREDICTING GLOMERULAR FILTRATION RATE. ESTIMATED GFR IS NOT APPLICABLE FOR DIALYSIS PATIENTS. VANCOMYCIN LEVEL, [id number] 02:53:00 Test Item Value Reference Range Comments VANCOMYCIN RANDOM (BEAKER) (test jjhh=798) 24.4 ug/mL Reference Range: No NormalsCALCIUM, [id number] 02:49:00 Test Item Value Reference Range Comments CALCIUM IONIZED (BEAKER) (test wkcx=429) 1.15 mmol/L 1.12-1.27 PH, BLOOD (BEAKER) (test okxi=2566) 7.40 CBC (HEMOGRAM ONLY)2018-05-22 02:29:00 Test Item Value Reference Range Comments WHITE BLOOD CELL COUNT (BEAKER) (test ahxa=012) 13.9 K/ L 3.5-10.5 RED BLOOD CELL COUNT (BEAKER) (test fwwe=855) 2.94 M/ L 4.63-6.08 HEMOGLOBIN (BEAKER) (test ghof=141) 8.3 GM/DL 13.7-17.5 HEMATOCRIT (BEAKER) (test galz=487) 25.5 % 40.1-51.0 MEAN CORPUSCULAR VOLUME (BEAKER) (test yrrk=917) 86.7 fL 79.0-92.2 MEAN CORPUSCULAR HEMOGLOBIN (BEAKER) (test 28.2 pg 25.7-32.2 ujiw=453) MEAN CORPUSCULAR HEMOGLOBIN CONC (BEAKER) (test 32.5 GM/DL 32.3-36.5 iddp=915) RED CELL DISTRIBUTION WIDTH (BEAKER) (test 15.9 % 11.6-14.4 dlkf=988) PLATELET COUNT (BEAKER) (test yhaz=228) 67 K/CU MM 150-450 MEAN PLATELET VOLUME (BEAKER) (test diuc=862) 11.8 fL 9.4-12.4 NUCLEATED RED BLOOD CELLS (BEAKER) (test 0 /100 WBC 0-0 yjje=174) [id number] 00:28:00 Test Item Value Reference Range Comments PROTIME (BEAKER) (test xehh=650) 15.9 seconds 11.7-14.7 INR (BEAKER) (test qnwo=485) 1.3 <=5.9 PARTIAL THROMBOPLASTIN TIME (BEAKER) (test 170.7 seconds 22.5-36.0 mlrl=279) RECOMMENDED COUMADIN/WARFARIN INR THERAPY RANGESSTANDARD DOSE: 2.0 - 3.0 Includes: PROPHYLAXIS forvenous thrombosis, systemic embolization; TREATMENT for venous thrombosis and/or pulmonary embolus.HIGH RISK: Target INR is 2.5-3.5 for patients with mechanical heart valves.BASIC METABOLIC [id number] 13:37: 00 Test Item Value Reference Range Comments SODIUM (BEAKER) (test 139 meq/L 136-145 bwlw=350) POTASSIUM (BEAKER) (test 3.8 meq/L 3.5-5.1 oewq=130) CHLORIDE (BEAKER) (test 101 meq/L 98-107 kyot=200) CO2 (BEAKER) (test 26 meq/L 22-29 zhip=746) BLOOD UREA NITROGEN 46 mg/dL 7-21 (BEAKER) (test dkkb=188) CREATININE (BEAKER) (test 1.60 mg/dL 0.57-1.25 ggmm=572) GLUCOSE RANDOM (BEAKER) 160 mg/dL 70-105 (test ldvo=650) CALCIUM (BEAKER) (test 9.1 mg/dL 8.4-10.2 vniw=694) EGFR (BEAKER) (test 41 mL/min/1.73 sq m ESTIMATED GFR IS NOT ayfa=8582) ACCURATE CREATININE CLEARANCE IN PREDICTING GLOMERULAR FILTRATION RATE. ESTIMATED GFR IS NOT APPLICABLE FOR DIALYSIS PATIENTS. MR, MRA, BRAIN, WITHOUT [id number] 12:04:00Reason for exam:-> Ischemic Stroke EvaluationFINAL REPORT MRA Head and Neck CLINICAL HISTORY: Stroke TECHNIQUE: MRA of thehead utilizing 3-D ngdo-yw-ovguor technique, with 3-D reconstructions.MRA of the neck utilizing 2-D and 3-D time- of-flight technique, with 3-D reconstructions. COMPARISON: None FINDINGS: There is no evidence for a quechan of Gonzalez proximal branch vessel occlusion. There [...] vertebral arteries. IMPRESSION: No evidence for a quechan of Gonzalez proximal branchvessel occlusion. No hemodynamically significant stenosis in the internal carotid arteries. 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 Signed: Jaycob Alvarado Verified Date/Time: 05/21/2018 12:04:26 Reading Location: [address] Neuro Reading Room MR, MRA, NECK, WITHOUT IV [id number] 12:04:00Reason for exam:->Ischemic Stroke EvaluationFINAL REPORT MRA Head and Neck CLINICAL HISTORY: Stroke TECHNIQUE: MRA of thehead utilizing 3-D clsp-pi-jgbpuv technique, with 3-D reconstructions.MRA of the neck utilizing 2-D and 3-D lses-xy-vswdyk technique, with 3-D reconstructions. COMPARISON: None FINDINGS: There is no evidence for a quechan of Gonzalez proximal branch vessel occlusion. There [...] vertebral arteries. IMPRESSION: No evidence for a quechan of Gonzalez proximal branchvessel occlusion. No hemodynamically significant stenosis in the internal carotid arteries. 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 Signed: Jaycob Alvarado Verified Date/Time: 05/21/2018 12:04:26 Reading Location: [address] Neuro Reading Room MR, BRAIN, WITHOUT [id number] 11:58:00Reason for exam:->Ischemic Stroke EvaluationFINAL REPORT MRI [...] Alvarado Verified Date/Time: 05/21/2018 11:58:08 Reading Location: [address] Neuro Reading Room RAD, CHEST, 1 VIEW, NON [id number] 10:54:00Reason for exam:->hypoxemiaShould this be performed at [...] [place] Verified Date/Time: 05/21/2018 10:54:40 Reading Location: [facility] B1 [id number] Ortho Consult Reading Room HEMOGLOBIN [id number] 08:30:00 Test Item Value Reference Range Comments HEMOGLOBIN A1C (BEAKER) (test imxr=118) 8.1 % 4.3-6.1 LIPID [id number] 07:31:00 Test Item Value Reference Range Comments TRIGLYCERIDES (BEAKER) (test dxuy=539) 348 mg/dL CHOLESTEROL (BEAKER) (test sgqk=711) 208 mg/dL HDL CHOLESTEROL (BEAKER) (test qquk=872) 26 mg/dL LDL CHOLESTEROL CALCULATED (BEAKER) (test 112 mg/dL uuut=229) Triglyceride Reference Range: Low Risk <150 Borderline 150- 199 High Risk 200-499 Very High Risk >=500Cholesterol Reference Range: Low Risk <200 Borderline 200-239 High Risk > 240HDL Cholesterol Reference Range: Low Risk >=60 High Risk <40LDL Cholesterol Reference Range: Optimal <100 Near Optimal 100-129 Borderline 130-159 High 160-189 Very High >=[id number] 04:49:00 Test Item Value Reference Range Comments PHOSPHORUS (BEAKER) (test dkxv=262) 6.4 mg/dL 2.3-4.7 [id number] 04:49:00 Test Item Value Reference Range Comments MAGNESIUM (BEAKER) (test tbgn=502) 2.3 mg/dL 1.6-2.6 BASIC METABOLIC [id number] 04:49:00 Test Item Value Reference Range Comments SODIUM (BEAKER) (test 139 meq/L 136-145 yuix=584) POTASSIUM (BEAKER) (test 3.8 meq/L 3.5-5.1 lzrz=432) CHLORIDE (BEAKER) (test 102 meq/L 98-107 bdzd=457) CO2 (BEAKER) (test 23 meq/L 22-29 vjvx=027) BLOOD UREA NITROGEN 49 mg/dL 7-21 (BEAKER) (test gedk=396) CREATININE (BEAKER) (test 1.96 mg/dL 0.57-1.25 vjrv=564) GLUCOSE RANDOM (BEAKER) 175 mg/dL 70-105 (test iybp=244) CALCIUM (BEAKER) (test 8.7 mg/dL 8.4-10.2 xjrq=191) EGFR (BEAKER) (test 33 mL/min/1.73 sq m ESTIMATED GFR IS NOT vxgk=6379) ACCURATE CREATININE CLEARANCE IN PREDICTING GLOMERULAR FILTRATION RATE. ESTIMATED GFR IS NOT APPLICABLE FOR DIALYSIS PATIENTS. VITAMIN [id number] 04:11:00 Test Item Value Reference Range Comments VITAMIN B12 (BEAKER) (test yvuk=023) 692 pg/mL 213-816 TSH/FREE T4 IF [id number] 04:11:00 Test Item Value Reference Range Comments THYROID STIMULATING HORMONE (BEAKER) (test 0.77 uIU/mL 0.35-4.94 ftil=669) CALCIUM, [id number] 03:53:00 Test Item Value Reference Range Comments CALCIUM IONIZED (BEAKER) (test kbqa=285) 1.12 mmol/L 1.12-1.27 PH, BLOOD (BEAKER) (test dgjs=0166) 7.35 CBC (HEMOGRAM ONLY)2018-05-21 03:16:00 Test Item Value Reference Range Comments WHITE BLOOD CELL COUNT (BEAKER) (test lpsm=933) 16.4 K/ L 3.5-10.5 RED BLOOD CELL COUNT (BEAKER) (test dgkd=666) 3.61 M/ L 4.63-6.08 HEMOGLOBIN (BEAKER) (test dvaz=222) 10.1 GM/DL 13.7-17.5 HEMATOCRIT (BEAKER) (test qpap=126) 32.2 % 40.1-51.0 MEAN CORPUSCULAR VOLUME (BEAKER) (test mknf=928) 89.2 fL 79.0-92.2 MEAN CORPUSCULAR HEMOGLOBIN (BEAKER) (test 28.0 pg 25.7-32.2 hhdp=593) MEAN CORPUSCULAR HEMOGLOBIN CONC (BEAKER) (test 31.4 GM/DL 32.3-36.5 zylj=768) RED CELL DISTRIBUTION WIDTH (BEAKER) (test 16.1 % 11.6-14.4 bnpj=622) PLATELET COUNT (BEAKER) (test dyzs=210) 81 K/CU MM 150-450 MEAN PLATELET VOLUME (BEAKER) (test wpoz=921) 11.0 fL 9.4-12.4 NUCLEATED RED BLOOD CELLS (BEAKER) (test 0 /100 WBC 0-0 vlaf=178) EEG AWAKE AND [id number] 15:54:00Reason for exam:->AMSDate(s) of EEDATE OF REPORT: 05/20/2018ACC: [id number] Number: [id number] Location : Inpatient ICUStart time: 14:17Stop time: 14:38ICD-10: R56.9CPT Code: 08293 HISTORY: 87 y.o. RHM w/ severe who [...] Rooney MDNeurophysiology Fellow, PGY5 Betsey Tello NeurophysiologistCHI Edgerton [facility] POCT- GLUCOSE [id number] 13:52:00 Test Item Value Reference Range Comments POC-GLUCOSE METER (BEAKER) 163 mg/dL 70-110 [facility] [address] [facility] (test thrp=0423) [facility] [address] TROPONIN [id number] 11:59:00 Test Item Value Reference Range Comments TROPONIN I (BEAKER) (test fses=060) 1.13 ng/mL 0.00-0.03 Troponin I (TnI) levels [...] acute neurological disease, and persistent tachyarrhythmia.COMPREHENSIVE METABOLIC [id number] 11:47:00 Test Item Value Reference Range Comments TOTAL PROTEIN (BEAKER) 5.7 gm/dL 6.0-8.3 (test fkkj=390) ALBUMIN (BEAKER) (test 3.4 g/dL 3.5-5.0 kslv=3353) ALKALINE PHOSPHATASE 42 U/L 40-150 (BEAKER) (test ixni=508) BILIRUBIN TOTAL (BEAKER) 0.8 mg/dL 0.2-1.2 (test mtau=841) SODIUM (BEAKER) (test 139 meq/L 136-145 updd=230) POTASSIUM (BEAKER) (test 4.2 meq/L 3.5-5.1 ogrc=930) CHLORIDE (BEAKER) (test 100 meq/L 98-107 hxfk=601) CO2 (BEAKER) (test 23 meq/L 22-29 jksl=968) BLOOD UREA NITROGEN 38 mg/dL 7-21 (BEAKER) (test flpd=340) CREATININE (BEAKER) (test 2.17 mg/dL 0.57-1.25 nzba=100) GLUCOSE RANDOM (BEAKER) 129 mg/dL 70-105 (test hzon=808) CALCIUM (BEAKER) (test 9.0 mg/dL 8.4-10.2 ifok=774) AST (SGOT) (BEAKER) (test 27 U/L 5-34 ozuo=487) ALT (SGPT) (BEAKER) (test 14 U/L 6-55 nntb=575) EGFR (BEAKER) (test 29 mL/min/1.73 sq m ESTIMATED GFR IS NOT gsrh=7839) ACCURATE CREATININE CLEARANCE IN PREDICTING GLOMERULAR FILTRATION RATE. ESTIMATED GFR IS NOT APPLICABLE FOR DIALYSIS PATIENTS. CREATINE KINASE (CK), TOTAL AND [id number] 11:42:00 Test Item Value Reference Range Comments CREATINE KINASE TOTAL (BEAKER) (test dpfy=731) 138 U/L 29-200 CREATINE KINASE-MB (BEAKER) (test kswl=512) 4.2 ng/mL 0.0-6.6 CREATINE KINASE-MB INDEX (BEAKER) (test zbqj=298) 3.0 % CK-MB Reference Range:<6.7 Normal6.7-10.0 Borderline>10.0 [id number] 11:36:00 Test Item Value Reference Range Comments PHOSPHORUS (BEAKER) (test arjv=174) 5.4 mg/dL 2.3-4.7 [id number] 11:36:00 Test Item Value Reference Range Comments MAGNESIUM (BEAKER) (test cjvm=163) 2.3 mg/dL 1.6-2.6 RAD, ABDOMEN/KUB, 1 VIEW [id number] 11:33:00Reason for exam:->Nasogastric tube insertionShould this be performed at the bedside?->YesFINAL REPORT Abdomen one view INDICATION: Nasogastric tube insertion COMPARISON: None available IMPRESSION: NG tube extends to the gastric body. The imaged bowel gas pattern is nonspecific. There are degenerative spine changes and incidental vascular calcifications. The imaged chest is similar to 2017. Signed: Kenan [place] Verified Date/Time: 05/20/2018 11: 33:02 Reading Location: [facility] Radiology Reading Room LACTIC ACID, VENOUS, WHOLE [id number] 11:32:00 Test Item Value Reference Range Comments LACTATE BLOOD VENOUS (2) (BEAKER) (test 2.1 mmol/L 0.5-2.2 dzrb=5318) Effective 04/02/2016: Units/Reference Range ChangeNew: 0.5-2.2 mmol/L Previous: 5 -20 mg/dLBLOOD GAS, [id number] 11:21:00 Test Item Value Reference Range Comments PH VENOUS (BEAKER) (test qvue=582) 7.40 7.32-7.42 PCO2 VENOUS (BEAKER) (test kbaw=955) 45 mmHg 41-51 PO2 VENOUS (BEAKER) (test hivb=952) 26 mmHg 25-40 O2 SATURATION VENOUS (BEAKER) (test tsnb=524) 46.3 % 40.0-70.0 HCO3 VENOUS (BEAKER) (test tpps=066) 27 mmol/L 21-29 BASE EXCESS VENOUS (BEAKER) (test viph=278) 1.8 mmol/L -2.0-3.0 PATIENT TEMPERATURE (BEAKER) (test zjhr=6726) 36.9 C FIO2 (BEAKER) (test pkou=5966) 36.0 % BASIC METABOLIC [id number] 05:05:00 Test Item Value Reference Range Comments SODIUM (BEAKER) (test 140 meq/L 136-145 ekeq=952) POTASSIUM (BEAKER) (test 3.9 meq/L 3.5-5.1 Specimen slightly htse=218) hemolyzed CHLORIDE (BEAKER) (test 105 meq/L 98-107 ixvc=279) CO2 (BEAKER) (test 21 meq/L 22-29 whpg=743) BLOOD UREA NITROGEN 31 mg/dL 7-21 (BEAKER) (test myhk=707) CREATININE (BEAKER) (test 1.63 mg/dL 0.57-1.25 Specimen slightly yzar=904) hemolyzed GLUCOSE RANDOM (BEAKER) 124 mg/dL 70-105 (test rybs=493) CALCIUM (BEAKER) (test 8.0 mg/dL 8.4-10.2 cbge=532) EGFR (BEAKER) (test 40 mL/min/1.73 sq m ESTIMATED GFR IS NOT bfkt=6884) ACCURATE CREATININE CLEARANCE IN PREDICTING GLOMERULAR FILTRATION RATE. ESTIMATED GFR IS NOT APPLICABLE FOR DIALYSIS PATIENTS. CBC (HEMOGRAM ONLY)2018-05-20 04:44:00 Test Item Value Reference Range Comments WHITE BLOOD CELL COUNT (BEAKER) (test alyb=557) 16.5 K/ L 3.5-10.5 RED BLOOD CELL COUNT (BEAKER) (test qjrg=278) 3.86 M/ L 4.63-6.08 HEMOGLOBIN (BEAKER) (test khts=475) 10.6 GM/DL 13.7-17.5 HEMATOCRIT (BEAKER) (test kkbw=870) 34.3 % 40.1-51.0 MEAN CORPUSCULAR VOLUME (BEAKER) (test mnkd=084) 88.9 fL 79.0-92.2 MEAN CORPUSCULAR HEMOGLOBIN (BEAKER) (test 27.5 pg 25.7-32.2 hdch=016) MEAN CORPUSCULAR HEMOGLOBIN CONC (BEAKER) (test 30.9 GM/DL 32.3-36.5 bmgi=137) RED CELL DISTRIBUTION WIDTH (BEAKER) (test 16.2 % 11.6-14.4 djzd=731) PLATELET COUNT (BEAKER) (test ayqq=220) 103 K/CU MM 150-450 MEAN PLATELET VOLUME (BEAKER) (test wbmj=139) 11.2 fL 9.4-12.4 NUCLEATED RED BLOOD CELLS (BEAKER) (test 0 /100 WBC 0-0 refr=484) URINALYSIS W/ [id number] 00:09:00 Test Item Value Reference Range Comments COLOR (BEAKER) (test mdbc=657) Yellow CLARITY (BEAKER) (test styr=521) Clear SPECIFIC GRAVITY UA (BEAKER) (test aztf=007) 1.017 1.001-1.035 PH UA (BEAKER) (test hjbl=787) 5.0 5.0-8.0 PROTEIN UA (BEAKER) (test zvge=910) Negative Negative GLUCOSE UA (BEAKER) (test gnvl=387) Negative Negative KETONES UA (BEAKER) (test rcji=072) Negative Negative BILIRUBIN UA (BEAKER) (test ljez=978) Negative Negative BLOOD UA (BEAKER) (test qyug=340) Small Negative NITRITE UA (BEAKER) (test vsqq=327) Negative Negative LEUKOCYTE ESTERASE UA (BEAKER) (test vucb=646) Negative Negative UROBILINOGEN UA (BEAKER) (test rzaj=022) 0.2 mg/dL 0.2-1.0 RBC UA (BEAKER) (test yxtm=144) 12 /HPF WBC UA (BEAKER) (test utsi=063) 1 /HPF MUCUS (BEAKER) (test ydpk=3765) Rare AMORPHOUS CRYSTALS (BEAKER) (test igno=5192) Occasional SOURCE(BEAKER) (test qswv=5977) Urine, [place] RAD, CHEST, 1 VIEW, NON [id number] 21:46:00Reason for exam:->tavrShould this be performed at the bedside?->YesFINAL REPORT INDICATION: tavr COMPARISON: None. TECHNIQUE: Chest radiograph, single view, portable technique. 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 Intact median sternotomy wires noted. No pulmonary edema, aspiration, pneumothorax, or pleural effusion demonstrated. Signed: Vladislav Michael [facility] Verified Date/Time: 05/19/2018 21:46:23 Reading Location: [address] Consult Reading Room POCT-LACTIC ACID, [id number] 21:21:00 Test Item Value Reference Range Comments POC-LACTIC ACID, ARTERIAL 1.5 mmol/L 0.4-1.3 TESTED AT [address] (BEAKER) (test zoxa=7854) [place] [id number] POCT-BLOOD GASES, [id number] 21:21:00 Test Item Value Reference Range Comments TEMP, CELSIUS-POC (BEAKER) 37.1 (test xrmy=3180) FIO2-POC (BEAKER) (test 29 TESTED AT [address] uxtn=2910) [place] [address] PH, ARTERIAL-POC (BEAKER) 7.468 7.350-7.450 (test scnk=5821) PCO2, ARTERIAL-POC (BEAKER) 34.4 mm Hg 35.0-45.0 (test vutm=8310) PO2, ARTERIAL-POC (BEAKER) 63.0 mm Hg 80.0-90.0 (test taay=9722) SO2, ARTERIAL-POC (BEAKER) 93.0 % 96.0-97.0 (test utcm=0822) HCO3, ARTERIAL-POC (BEAKER) 24.9 meq/L 21.0-29.0 (test swfh=4166) BASE EXCESS, ARTERIAL-POC 1.0 meq/L -2.0-3.0 (BEAKER) (test mqbh=7904) [id number] 21:21:00 Test Item Value Reference Range Comments POC-SODIUM (BEAKER) (test 137 meq/L 135-148 TESTED AT [address] cwyh=9012) [place] [address] [id number] 21:21:00 Test Item Value Reference Range Comments POC-POTASSIUM (BEAKER) (test 3.6 meq/L 3.6-5.5 TESTED AT [address] ehcd=1350) [place] [address] [id number] 21:21:00 Test Item Value Reference Range Comments POC-GLUCOSE (BEAKER) (test 152 mg/dL 70-110 TESTED AT [address] kdld=7131) [place] [address] POCT-CALCIUM [id number] 21:21:00 Test Item Value Reference Range Comments POC-CALCIUM IONIZED (BEAKER) 1.19 mmol/L 1.12-1.27 TESTED AT [address] (test edso=5390) [place] [address] [id number] 21:21:00 Test Item Value Reference Range Comments POC-HEMATOCRIT (BEAKER) (test 32 % 40-50 TESTED AT [address] zxnu=9976) [place] [address] [id number] 21:21:00 Test Item Value Reference Range Comments POC-HEMOGLOBIN (BEAKER) 10.9 g/dL 13.0-16.8 TESTED AT [address] (test xtwk=7756) [place] [address]TESTED AT [place] [address] TROPONIN [id number] 20:56:00 Test Item Value Reference Range Comments TROPONIN I (BEAKER) (test stck=940) 0.73 ng/mL 0.00-0.03 Troponin I (TnI) levels [...] and persistent tachyarrhythmia.CREATINE KINASE (CK), TOTAL AND [id number] 20:49:00 Test Item Value Reference Range Comments CREATINE KINASE TOTAL (BEAKER) (test rpop=068) 41 U/L 29-200 CREATINE KINASE-MB (BEAKER) (test noah=400) 3.5 ng/mL 0.0-6.6 CREATINE KINASE-MB INDEX (BEAKER) (test yuit=772) 8.5 % CK-MB Reference Range:<6.7 Normal6.7-10.0 Borderline>10.0 AbnormalCT, BRAIN/STROKE [id number] 20:46:00Reason for exam:-> altered mental statusFINAL REPORT [...] [place] Verified Date/Time: 05/19/2018 20:46:09 Reading Location: [facility] Radiology Reading Room [facility] METABOLIC [id number] 20: 42:00 Test Item Value Reference Range Comments SODIUM (BEAKER) (test 138 meq/L 136-145 rmxo=275) POTASSIUM (BEAKER) (test 3.8 meq/L 3.5-5.1 rrxm=854) CHLORIDE (BEAKER) (test 100 meq/L 98-107 kcqn=139) CO2 (BEAKER) (test 26 meq/L 22-29 trfb=084) BLOOD UREA NITROGEN 27 mg/dL 7-21 (BEAKER) (test pjhc=146) CREATININE (BEAKER) (test 1.41 mg/dL 0.57-1.25 cles=628) GLUCOSE RANDOM (BEAKER) 146 mg/dL 70-105 (test brwx=384) CALCIUM (BEAKER) (test 8.7 mg/dL 8.4-10.2 wdjo=890) EGFR (BEAKER) (test 48 mL/min/1.73 sq m ESTIMATED GFR IS NOT cnpq=4023) ACCURATE CREATININE CLEARANCE IN PREDICTING GLOMERULAR FILTRATION RATE. ESTIMATED GFR IS NOT APPLICABLE FOR DIALYSIS PATIENTS. [id number] 20:32:00 Test Item Value Reference Range Comments PROTIME (BEAKER) (test znfl=843) 14.2 seconds 11.7-14.7 INR (BEAKER) (test xkjk=746) 1.1 <=5.9 PARTIAL THROMBOPLASTIN TIME (BEAKER) (test 31.4 seconds 22.5-36.0 hrqd=901) RECOMMENDED COUMADIN/WARFARIN INR THERAPY RANGESSTANDARD DOSE: 2.0 - 3.0 Includes: PROPHYLAXIS forvenous thrombosis, systemic embolization; TREATMENT for venous thrombosis and/or pulmonary embolus.HIGH RISK: Target INR is 2.5-3.5 for patients with mechanical heart valves.CBC W/PLT COUNT & AUTO [id number] 20:30:00 Test Item Value Reference Range Comments WHITE BLOOD CELL COUNT (BEAKER) (test hdln=681) 12.5 K/ L 3.5-10.5 RED BLOOD CELL COUNT (BEAKER) (test zoyk=487) 3.77 M/ L 4.63-6.08 HEMOGLOBIN (BEAKER) (test gxuo=276) 10.4 GM/DL 13.7-17.5 HEMATOCRIT (BEAKER) (test lltm=898) 34.1 % 40.1-51.0 MEAN CORPUSCULAR VOLUME (BEAKER) (test zxam=415) 90.5 fL 79.0-92.2 MEAN CORPUSCULAR HEMOGLOBIN (BEAKER) (test 27.6 pg 25.7-32.2 xmzg=657) MEAN CORPUSCULAR HEMOGLOBIN CONC (BEAKER) (test 30.5 GM/DL 32.3-36.5 ciqs=048) RED CELL DISTRIBUTION WIDTH (BEAKER) (test 16.4 % 11.6-14.4 uimi=778) PLATELET COUNT (BEAKER) (test hbvq=927) 116 K/CU MM 150-450 MEAN PLATELET VOLUME (BEAKER) (test cjwr=258) 10.6 fL 9.4-12.4 NUCLEATED RED BLOOD CELLS (BEAKER) (test 0 /100 WBC 0-0 wbeo=461) NEUTROPHILS RELATIVE PERCENT (BEAKER) (test 74 % rheo=835) LYMPHOCYTES RELATIVE PERCENT (BEAKER) (test 18 % zifl=758) MONOCYTES RELATIVE PERCENT (BEAKER) (test 6 % ilbr=824) EOSINOPHILS RELATIVE PERCENT (BEAKER) (test 1 % pmnk=213) BASOPHILS RELATIVE PERCENT (BEAKER) (test 0 % nbua=967) NEUTROPHILS ABSOLUTE COUNT (BEAKER) (test 9.27 K/ L 1.78-5.38 vdfo=925) LYMPHOCYTES ABSOLUTE COUNT (BEAKER) (test 2.24 K/ L 1.32-3.57 pply=751) MONOCYTES ABSOLUTE COUNT (BEAKER) (test 0.73 K/ L 0.30-0.82 bluh=519) EOSINOPHILS ABSOLUTE COUNT (BEAKER) (test 0.13 K/ L 0.04-0.54 iolw=352) BASOPHILS ABSOLUTE COUNT (BEAKER) (test 0.03 K/ L 0.01-0.08 awkj=524) IMMATURE GRANULOCYTES-RELATIVE PERCENT (BEAKER) 1 % 0-1 (test rlfw=5347) POCT-GLUCOSE [id number] 20:01:00 Test Item Value Reference Range Comments POC-GLUCOSE METER (BEAKER) 182 mg/dL 70-110 TESTED AT [facility] [address] [facility] (test vano=9078) [facility] [address] [id number] 09:06:00 Test Item Value Reference Range Comments ACTIVATED CLOTTING TIME 329 sec TESTED AT [facility] [address] [facility] (BEAKER) (test sayt=453) [facility] [address] B-TYPE NATRIURETIC FACTOR (BNP)2018-04-21 15:09:00 Test Item Value Reference Range Comments B-TYPE NATRIURETIC PEPTIDE (BEAKER) (test 785 pg/mL 0-100 fzzi=696) COMPREHENSIVE METABOLIC [id number] 15:02:00 Test Item Value Reference Range Comments TOTAL PROTEIN (BEAKER) 6.9 gm/dL 6.0-8.3 (test kgtc=097) ALBUMIN (BEAKER) (test 4.0 g/dL 3.5-5.0 agla=5484) ALKALINE PHOSPHATASE 42 U/L 40-150 (BEAKER) (test tvwz=567) BILIRUBIN TOTAL (BEAKER) 0.5 mg/dL 0.2-1.2 (test quag=884) SODIUM (BEAKER) (test 135 meq/L 136-145 zwgr=672) POTASSIUM (BEAKER) (test 4.3 meq/L 3.5-5.1 crhu=287) CHLORIDE (BEAKER) (test 99 meq/L 98-107 fnbf=287) CO2 (BEAKER) (test 25 meq/L 22-29 ehlz=960) BLOOD UREA NITROGEN 31 mg/dL 7-21 (BEAKER) (test uycg=797) CREATININE (BEAKER) (test 1.39 mg/dL 0.57-1.25 dbjm=779) GLUCOSE RANDOM (BEAKER) 194 mg/dL 70-105 (test tszs=998) CALCIUM (BEAKER) (test 9.7 mg/dL 8.4-10.2 hwxu=265) AST (SGOT) (BEAKER) (test 12 U/L 5-34 yctg=489) ALT (SGPT) (BEAKER) (test 15 U/L 6-55 dgpo=259) EGFR (BEAKER) (test 48 mL/min/1.73 sq m ESTIMATED GFR IS NOT tefv=9522) ACCURATE CREATININE CLEARANCE IN PREDICTING GLOMERULAR FILTRATION RATE. ESTIMATED GFR IS NOT APPLICABLE FOR DIALYSIS PATIENTS. PROTHROMBIN TIME/[id number] 14:58:00 Test Item Value Reference Range Comments PROTIME (BEAKER) (test tbto=349) 12.8 seconds 11.7-14.7 INR (BEAKER) (test wvjj=798) 1.0 <=5.9 RECOMMENDED COUMADIN/WARFARIN INR THERAPY RANGESSTANDARD DOSE: 2.0 - 3.0 Includes: PROPHYLAXIS forvenous thrombosis, systemic embolization; TREATMENT for venous thrombosis and/or pulmonary embolus.HIGH RISK: Target INR is 2.5-3.5 for patients with mechanical heart valves.CBC W/PLT COUNT & AUTO [id number] 14:45:00 Test Item Value Reference Range Comments WHITE BLOOD CELL COUNT (BEAKER) (test sqst=165) 10.3 K/ L 3.5-10.5 RED BLOOD CELL COUNT (BEAKER) (test uzbk=931) 4.35 M/ L 4.63-6.08 HEMOGLOBIN (BEAKER) (test fnbm=599) 11.9 GM/DL 13.7-17.5 HEMATOCRIT (BEAKER) (test lxvq=249) 37.6 % 40.1-51.0 MEAN CORPUSCULAR VOLUME (BEAKER) (test jwaq=387) 86.4 fL 79.0-92.2 MEAN CORPUSCULAR HEMOGLOBIN (BEAKER) (test 27.4 pg 25.7-32.2 jxtf=493) MEAN CORPUSCULAR HEMOGLOBIN CONC (BEAKER) (test 31.6 GM/DL 32.3-36.5 xsah=590) RED CELL DISTRIBUTION WIDTH (BEAKER) (test 16.5 % 11.6-14.4 hwhg=849) PLATELET COUNT (BEAKER) (test xmqf=581) 158 K/CU MM 150-450 MEAN PLATELET VOLUME (BEAKER) (test xvdp=631) 11.1 fL 9.4-12.4 NUCLEATED RED BLOOD CELLS (BEAKER) (test 0 /100 WBC 0-0 szuc=633) NEUTROPHILS RELATIVE PERCENT (BEAKER) (test 73 % vnio=866) LYMPHOCYTES RELATIVE PERCENT (BEAKER) (test 19 % kdlk=590) MONOCYTES RELATIVE PERCENT (BEAKER) (test 6 % mdvv=356) EOSINOPHILS RELATIVE PERCENT (BEAKER) (test 1 % jwoy=166) BASOPHILS RELATIVE PERCENT (BEAKER) (test 0 % hepb=128) NEUTROPHILS ABSOLUTE COUNT (BEAKER) (test 7.54 K/ L 1.78-5.38 wqud=888) LYMPHOCYTES ABSOLUTE COUNT (BEAKER) (test 1.96 K/ L 1.32-3.57 snqd=437) MONOCYTES ABSOLUTE COUNT (BEAKER) (test 0.61 K/ L 0.30-0.82 xpdb=700) EOSINOPHILS ABSOLUTE COUNT (BEAKER) (test 0.09 K/ L 0.04-0.54 kajt=604) BASOPHILS ABSOLUTE COUNT (BEAKER) (test 0.03 K/ L 0.01-0.08 bxdx=275) IMMATURE GRANULOCYTES-RELATIVE PERCENT (BEAKER) 1 % 0-1 (test ojhj=5041) CT, CTA [id number] 12:54:00Addendum BeginsREPORT STATUS:A Addendum: I agree with the previously described non vascular findings.. Additionally, the lungs demonstrate fibrotic changes which are most pronounced in the bilateral bases. Biapical pleural-parenchymal scarring is present. Signed: Dejon BlandMDReport Verified Date/Time: 04/20/2018 12:54: 28 Reading Location: [place] [address] Angio Body Reading RoomAddendum EndsFINAL REPORT CT [...] 5. An addendum will be dictated bythe Bankruptcy Paralegal Radiologist regarding the nonvascular findings. Signed: Puneet Espinoza Verified Date/Time: 14:19:03 Reading Location: [place] [address], CTA, [id number] 12:54:00Addendum BeginsREPORT STATUS:A Addendum: I agree with the previously described non vascular findings.. Additionally, the lungs demonstrate fibrotic changes which are most pronounced in the bilateral bases. Biapical pleural-parenchymal scarring is present. Signed : Dejon BlandMDReport Verified Date/Time: 04/20/2018 12:54:28 Reading Location: [place] [address] Angio Body Reading RoomAddendum EndsFINAL REPORT CT [...] 5. An addendum will be dictated bythe Bankruptcy Paralegal Radiologist regarding the nonvascular findings. Signed: Puneet Espinoza MDReport Verified Date/Time: 14:19:03 Reading Location: [place] [id number] Cardiology MRI POCT- [id number] 09:37:00 Test Item Value Reference Range Comments POC-CREATININE (Apmetrix) 1.3 mg/dL 0.6-1.3 TESTED AT [facility] [address] [place] [address] (test [id number]) [facility] [address] POC-EGFR (Apmetrix) (test 52 mL/min/1.73M2 [id number]=[id number])
[2018-11-10 15:51] LABS: Absolute Lymphocytes (CBC) 1.3 K/uL (0.7-4.9); Absolute Monocytes 0.4 K/uL (0.1-1.3); Absolute Neutrophil 6.8 K/uL (1.8-8.0); Basophils % 0.3 % (0-1.3); Eosinophils % 0.2 % (0-4.4); Hematocrit 32.3 % (39.6-49.0); Lymphocytes % 15.3 % (15.3-44.8); MCH 24.7 pg (27.0-35.0); MPV 8.7 fL (7.6-11.3); Monocytes % 4.8 % (3.3-12.3)
[2018-11-10 15:57] LABS: Albumin 2.9 g/dL (3.4-5.0); Bilirubin Direct 0.1 mg/dL (0-0.2); Bilirubin Total 0.4 mg/dL (0.2-1.0); Potassium 4.2 mmol/L (3.5-5.1); Protein, Total 6.6 g/dL (6.4-8.2)
--- NOTE | 2018-11-10 16:24 | RAD REPORT ---
EXAM DESCRIPTION: CT - Stone Protocol - 11/10/2018 4:14 pm CLINICAL HISTORY: Abdominal pain. Lower abdominal pain. COMPARISON: None. TECHNIQUE: Computed axial tomography of the abdomen pelvis was obtained without oral or IV contrast. Lack of IV and oral contrast limits evaluation of solid organs, bowel, and vessels. Coronal reformat terry images were obtained and reviewed. All CT scans are performed using dose optimization technique as appropriate and may include automated exposure control or mA/KV adjustment according to patient size. FINDINGS: A renal calculus is not seen. An ureteral calculus is not noted. A bladder calculus is not present. Malrotation left kidney A gallstone is present without gallbladder wall thickening The liver, spleen, pancreas and adrenals appear grossly normal There is no evidence of diverticulitis. The appendix appears normal Atherosclerotic changes involve the arteries IMPRESSION: Negative for a genitourinary calculus Cholelithiasis without evidence cholecystitis
[2018-11-10] MEDS ORDERED: NA CHLORIDE 0.9% 500 ML ONE (18:03)
[2018-11-10 18:11] LABS: Urine Blood NEGATIVE (NEG); Urine Glucose TRACE (NEG); Urine Protein NEGATIVE (NEG); Urine Specific Gravity 1.015 (1.005-1.030)
[2018-11-10 18:11] LABS: Urine Bacteria <20 /HPF (NONE SEEN); Urine Culture Reflex Order NOT NEEDED; Urine RBC <5 /HPF (NONE SEEN)
--- NOTE | 2018-11-10 18:14 | ER ---
Nurse's Notes [facility] Name: Victor Hugo Damon Age: 88 yrs Sex: Male : 1930 Arrival Date: 11/10/2018 Time: 15:03 Bed 30 Private MD: Diagnosis: Low back pain Presentation: 11/10 15:03 Presenting complaint: EMS states: patient has lower back pain for 3 weeks now, no mg2 recent surgery or trauma on her back. 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 no complains of pain without movement. Transition of care: patient was not received from another setting of care. Onset of symptoms was September 2018. Risk Assessment: Do you want to hurt yourself or someone else? Patient reports no desire to harm self or others. Initial Sepsis Screen: Does the patient meet any 2 criteria? No. Patient's initial sepsis screen is negative. Does the patient have a suspected source of infection? No. Patient's initial sepsis screen is negative. Care prior to arrival: None. 15:03 Method Of Arrival: EMS: [facility] mg2 15:03 Acuity: ESTHELA 4 mg2 Historical: - Allergies: 15:09 PENICILLINS; mg2 - Home Meds: 15:09 acetaminophen 325 mg Oral tab 2 tabs every 4 hours for Pain [Active]; amlodipine 5 mg mg2 tab 1 tab once daily [Active]; aspirin 81 mg Oral TbEC 1 tab once daily [Active]; bisacodyl 5 mg Oral TbEC 1 tab once daily [Active]; carvedilol 25 mg Oral tab 1 tab 2 times per day [Active]; clopidogrel 75 mg Oral tab 1 tab once daily [Active]; losartan 50 mg Oral tab 1 tab once daily [Active]; melatonin 3 mg Oral tab nightly [Active]; Myrbetriq 25 mg Oral Tb24 1 tab once daily [Active]; Myrbetriq 25 mg Oral Tb24 1 tab once daily [Active]; nifedipine 30 mg Oral TbER 2 tabs once daily [Active]; Nifedipine ER Oral 30 mg twice a day [Active]; potassium chloride 10 mEq Oral cpER 1 cap once daily [Active]; prednisone 20 mg Oral tab 1 tab once daily [Active]; torsemide 20 mg Oral tab 1 tab once daily [Active]; torsemide 10 mg Oral tab 1 tab once daily [Active]; warfarin 5 mg Oral tab 1 tab once daily [Active]; - PMHx: 15:09 Atrial Fib; CVA; Diabetes - NIDDM; Hypertension; CAD; mg2 - PSHx: 15:09 removal of melanoma from the left hand; mg2 - Immunization history:: Flu vaccine is up to date. - Social history:: Smoking status: Patient/guardian denies using tobacco, Patient/guardian denies using alcohol, street drugs, IV drugs. - Ebola Screening: : No symptoms or risks identified at this time. Screenin:33 Abuse screen: Denies threats or abuse. Denies injuries from another. Nutritional mg2 screening: No deficits noted. Tuberculosis screening: No symptoms or risk factors identified. Fall Risk IV access (20 points). Gait- Weak (10 pts.). Assessment: 15:33 General: Appears in no apparent distress. comfortable, Behavior is calm, cooperative. mg2 Pain: Complains of pain in lower back Pain does not radiate. Pain currently is 0 out of 10 on a pain scale. Quality of pain is described as aching, Pain began gradually, 3 weeks ago Is intermittent. Neuro: Level of Consciousness is awake, alert, obeys commands, Oriented to person, place, time, situation. Cardiovascular: Capillary refill < 3 seconds Patient's skin is warm and dry. Respiratory: Airway is patent Respiratory effort is even, unlabored, Respiratory pattern is regular, symmetrical. GI: No signs and/or symptoms were reported involving the gastrointestinal system. : Reports pain in lower back. EENT: No signs and/or symptoms were reported regarding the EENT system. Derm: Skin is intact, is healthy with good turgor, Skin is pink, warm \T\ dry. normal. Musculoskeletal: No signs and/or symptoms reported regarding the musculoskeletal system. Vital Signs: 15:05 BP 134 / 63; Pulse 60; Resp 18; Temp 98.4; Pulse Ox 98% ; Weight 88.45 kg; Height 6 ft. mg2 0 in. (182.88 cm); Pain 0/10; 16:49 BP 144 / 45; Pulse 72; Resp 18; Pulse Ox 97% on R/A; mg2 18:40 BP 135 / 75; Pulse 85; Resp 18; Pulse Ox 100% on R/A; Pain 0/10; mg2 15:05 Body Mass Index 26.45 (88.45 kg, 182.88 cm) mg2 ED Course: 15:03 Patient arrived in ED. mg2 15:05 Cleveland Healy NP is PHCP. pm1 15:05 Jaziel Lorenz MD is Attending Physician. pm1 15:05 Triage completed. mg2 15:20 Phillip Villegas, RN is Primary Nurse. mg2 15:25 Warm blanket given. Pillow given. mg2 15:31 Basic Metabolic Panel Sent. mg2 15:31 CBC with Diff Sent. mg2 15:31 Creatinine for Radiology Sent. mg2 15:31 Hepatic Function Sent. mg2 15:31 Lipase Sent. mg2 15:31 Patient has correct armband on for positive identification. Bed in low position. Call mg2 light in reach. Side rails up X 1. Side rails up X2. bus monitor on. Pulse ox on. NIBP on. 15:33 No provider procedures requiring assistance completed. Inserted saline lock: 20 gauge mg2 in right antecubital area, using aseptic technique. Blood collected. 15:34 Arm band placed on. mg2 16:14 CT Stone Protocol In Process Unspecified. EDMS 16:14 CT completed. Patient tolerated procedure well. Patient moved back from CT. vr 18:40 IV discontinued, intact, bleeding controlled, No redness/swelling at site. Pressure mg2 dressing applied. Administered Medications: 17:55 Drug: NS 0.9% 500 ml Route: IV; Rate: bolus; Site: right antecubital; mg2 18:23 Follow up: Response: No adverse reaction; IV Status: Completed infusion mg2 Outcome: 18:14 Discharge ordered by . pm1 18:40 Discharged to home via wheelchair. mg2 18:40 Condition: stable 18:40 Discharge instructions given to patient, Instructed on discharge instructions, follow up and referral plans. medication usage, Demonstrated understanding of instructions, follow-up care, medications, Prescriptions given X 1. 18:41 Patient left the ED. mg2 Signatures: Dispatcher [employer] EDMS Soledad Devine vr Cleveland Healy NP SENIOR NET DEVELOPER pm1 Phillip Villegas, RN RN mg2
--- NOTE | 2018-11-10 18:15 | EDPHYS ---
Physician Documentation [facility] Name: Victor Hugo Damon Age: 88 yrs Sex: Male : 1930 Arrival Date: 11/10/2018 Time: 15:03 Bed 30 Private MD: ED Physician Jaziel Lorenz HPI: 11/10 17:40 This 88 yrs old Male presents to ER via EMS with complaints of right lower pm1 back pain. 17:40 The patient presents with pain right lower back. The symptoms are located in the right pm1 low back. The pain does not radiate. The problem was sustained from unknown cause. Onset: The symptoms/episode began/occurred 3 week(s) ago. Modifying factors: The patient symptoms are alleviated by remaining still, rest, the patient symptoms are aggravated by movement. Associated signs and symptoms: Pertinent positives: reports occasional burning with urination over the past three weeks, but none today, Pertinent negatives: abdominal pain, chest pain, dysuria, fever, numbness, tingling, vomiting, weakness. Severity of symptoms: in the emergency department the symptoms are unchanged. history of back problems. The patient has not recently seen a physician, the patient's primary care provider is Dr. Stahl. Historical: - Allergies: 15:09 PENICILLINS; mg2 - Home Meds: 15:09 acetaminophen 325 mg Oral tab 2 tabs every 4 hours for Pain [Active]; amlodipine 5 mg mg2 tab 1 tab once daily [Active]; aspirin 81 mg Oral TbEC 1 tab once daily [Active]; bisacodyl 5 mg Oral TbEC 1 tab once daily [Active]; carvedilol 25 mg Oral tab 1 tab 2 times per day [Active]; clopidogrel 75 mg Oral tab 1 tab once daily [Active]; losartan 50 mg Oral tab 1 tab once daily [Active]; melatonin 3 mg Oral tab nightly [Active]; Myrbetriq 25 mg Oral Tb24 1 tab once daily [Active]; Myrbetriq 25 mg Oral Tb24 1 tab once daily [Active]; nifedipine 30 mg Oral TbER 2 tabs once daily [Active]; Nifedipine ER Oral 30 mg twice a day [Active]; potassium chloride 10 mEq Oral cpER 1 cap once daily [Active]; prednisone 20 mg Oral tab 1 tab once daily [Active]; torsemide 20 mg Oral tab 1 tab once daily [Active]; torsemide 10 mg Oral tab 1 tab once daily [Active]; warfarin 5 mg Oral tab 1 tab once daily [Active]; - PMHx: 15:09 Atrial Fib; CVA; Diabetes - NIDDM; Hypertension; CAD; mg2 - PSHx: 15:09 removal of melanoma from the left hand; mg2 - Immunization history:: Flu vaccine is up to date. - Social history:: Smoking status: Patient/guardian denies using tobacco, Patient/guardian denies using alcohol, street drugs, IV drugs. - Ebola Screening: : No symptoms or risks identified at this time. ROS: 16:00 Constitutional: Negative for fever, chills, and weight loss, Eyes: Negative for injury, pm1 pain, redness, and discharge, ENT: Negative for injury, pain, and discharge, Neck: Negative for injury, pain, and swelling, Cardiovascular: Negative for chest pain, palpitations, and edema, Respiratory: Negative for shortness of breath, cough, wheezing, and pleuritic chest pain, Abdomen/GI: Negative for abdominal pain, nausea, vomiting, diarrhea, and constipation. 16:00 MS/Extremity: Negative for injury and deformity. 16:00 Skin: Negative for injury, rash, and discoloration, Neuro: Negative for headache, weakness, numbness, tingling, and seizure. 16:00 Back: Positive for of the right low back, Negative for decreased range of motion, pain with movement. 16:00 : Positive for occasional burning with urination. Exam: 16:00 Constitutional: This is a well developed, well nourished patient who is awake, alert, pm1 and in no acute distress. Head/Face: Normocephalic, atraumatic. Eyes: Pupils equal round and reactive to light, extra-ocular motions intact. Lids and lashes normal. Conjunctiva and sclera are non-icteric and not injected. Cornea within normal limits. Periorbital areas with no swelling, redness, or edema. ENT: Nares patent. No nasal discharge, no septal abnormalities noted. Tympanic membranes are normal and external auditory canals are clear. Oropharynx with no redness, swelling, or masses, exudates, or evidence of obstruction, uvula midline. Mucous membranes moist. Neck: Trachea midline, no thyromegaly or masses palpated, and no cervical lymphadenopathy. Supple, full range of motion without nuchal rigidity, or vertebral point tenderness. No Meningismus. Chest/axilla: Normal chest wall appearance and motion. Nontender with no deformity. No lesions are appreciated. Cardiovascular: Regular rate and rhythm with a normal S1 and S2. No gallops, murmurs, or rubs. Normal PMI, no JVD. No pulse deficits. Respiratory: Lungs have equal breath sounds bilaterally, clear to auscultation and percussion. No rales, rhonchi or wheezes noted. No increased work of breathing, no retractions or nasal flaring. Abdomen/GI: Soft, non-tender, with normal bowel sounds. No distension or tympany. No guarding or rebound. No evidence of tenderness throughout. 16:00 Skin: Warm, dry with normal turgor. Normal color with no rashes, no lesions, and no evidence of cellulitis. MS/ Extremity: Pulses equal, no cyanosis. Neurovascular intact. Full, normal range of motion. 16:00 Back: normal spinal alignment noted, vertebral tenderness, is not appreciated, muscle spasm, is appreciated in the right low back. 16:00 Neuro: Orientation: is normal, Motor: is normal, moves all fours. Vital Signs: 15:05 BP 134 / 63; Pulse 60; Resp 18; Temp 98.4; Pulse Ox 98% ; Weight 88.45 kg; Height 6 ft. mg2 0 in. (182.88 cm); Pain 0/10; 16:49 BP 144 / 45; Pulse 72; Resp 18; Pulse Ox 97% on R/A; mg2 18:40 BP 135 / 75; Pulse 85; Resp 18; Pulse Ox 100% on R/A; Pain 0/10; mg2 15:05 Body Mass Index 26.45 (88.45 kg, 182.88 cm) mg2 MDM: 15:06 Patient medically screened. pm1 17:44 ED course: Creatinine stable from 07/11/2018 visit at 1.4. pm1 18:11 Data reviewed: vital signs. Data interpreted: Pulse oximetry: on room air is 97 %. pm1 Interpretation: normal. 18:11 ED course: Patient wants to go home now. Still pending urine microscopic sample. pm1 18:12 ED course: Urine microscopic sample returned and normal. Will discharge patient home to pm1 follow up with his PCP. 18:12 Counseling: I had a detailed discussion with the patient and/or guardian regarding: the pm1 historical points, exam findings, and any diagnostic results supporting the discharge/admit diagnosis, lab results, radiology results, the need for outpatient follow up, to return to the emergency department if symptoms worsen or persist or if there are any questions or concerns that arise at home. 18:31 ED course: Patient requested a prescription for tylenol #3 for his back pain. pm1 12 15:14 Order name: Basic Metabolic Panel; Complete Time: 15:58 pm1 11/10 15:14 Order name: CBC with Diff; Complete Time: 16:23 pm1 11/10 15:14 Order name: Creatinine for Radiology; Complete Time: 15:58 pm1 11/10 15:14 Order name: Hepatic Function; Complete Time: 15:58 pm1 11/10 15:14 Order name: Lipase; Complete Time: 15:58 pm1 11/10 15:14 Order name: Urine Microscopic Only; Complete Time: 18:14 pm1 11/10 15:14 Order name: IV Saline Lock; Complete Time: 15:31 pm1 11/10 15:14 Order name: Labs collected and sent; Complete Time: 15:31 pm1 11/10 15:14 Order name: Urine Dipstick-Ancillary (obtain specimen); Complete Time: 17:45 pm1 11/10 15:59 Order name: CT Stone Protocol; Complete Time: 16:43 pm1 11/10 17:51 Order name: Urine Dipstick--Ancillary (enter results); Complete Time: 18:14 bd Administered Medications: 17:55 Drug: NS 0.9% 500 ml Route: IV; Rate: bolus; Site: right antecubital; mg2 18:23 Follow up: Response: No adverse reaction; IV Status: Completed infusion mg2 Disposition: 11/10/18 18:14 Discharged to Home. Impression: Low back pain. - Condition is Stable. - Discharge Instructions: Back Pain, Adult, Musculoskeletal Pain. - Prescriptions for Tylenol- Codeine #3 300-30 mg Oral Tablet - take 1 tablet by ORAL route every 6 hours As needed; 20 tablet. - Medication Reconciliation Form, Thank You Letter form. - Follow up: Emergency Department; When: As needed; Reason: Worsening of condition. Follow up: Private Physician; When: 2 - 3 days; Reason: Recheck today's complaints, Continuance of care, Re-evaluation by your physician. - Problem is new. - Symptoms have improved. Addendum: 11/16/2018 01:36 Co-signature as Attending Physician, Jaziel Lorenz MD. r n Signatures: Dispatcher [employer] EDMS Jaziel Lorenz MD MD rn Cleveland Healy, FOREST NURSERY SUPERVISOR FOREST NURSERY SUPERVISOR pm1 Phillip Villegas RN RN mg2 Corrections: (The following items were deleted from the chart) 11/10 18:41 18:14 11/10/2018 18:14 Discharged to Home. Impression: Low back pain. Condition is mg2 Stable. Forms are Medication Reconciliation Form, Thank You Letter, Antibiotic Education, Prescription Opioid Use. Follow up: Emergency Department; When: As needed; Reason: Worsening of condition. Follow up: Private Physician; When: 2 - 3 days; Reason: Recheck today's complaints, Continuance of care, Re-evaluation by your physician. Problem is new. Symptoms have improved. pm1
[2018-11-10 19:05] VITALS: TEMP 98.4
[2018-11-10 19:08] VITALS: BP 135/75; O2SAT 100
== END 2018-11-10 18:41 | disposition home or self-care (01) ==
LOC: ER 14:56
DX: M54.5 Low back pain (principal); I10 Essential (primary) hypertension; E11.9 Type 2 diabetes mellitus without complications; I48.91 Unspecified atrial fibrillation; Z79.01 Long term (current) use of anticoagulants; Z79.82 Long term (current) use of aspirin; Z88.0 Allergy status to penicillin
CPT/HCPCS: 36415; 74176; 76377; 80048; 80076; 81003; 81015; 83690; 85025; 99285

== ENCOUNTER 2019-01-27 13:39 | Emergency (ER) | payer OTHER ==
--- OUTSIDE RECORDS SUMMARY | 2019-01-27 13:55 | XMS REPORT | Clinical Summary ---
:1930 Author Organization [facility] Address [address] [place] [address] Care Team Providers Name Role Phone Pcp, [...] 05/19/2018 Surgery Cristobal Moreno TAVR / [facility] - MD Nelson PROC ONLY 05/19/2018 Anesthesia Event Johnson Peralta MD 05/19/2018 - Hospital Encounter Cardiology Cristobal Moreno Advanced age; 05/30/2018 MD Nelson Severe aortic stenosis 05/19/2018 Orders Only General Internal Medicine 04/21/2018 Hospital Encounter Cristobal Moreno MD 04/21/2018 Office Visit Cardiology Joseph Tsai Hyperlipidemia, unspecified hyperlipidemia type; MD Barrett PVD (peripheral vascular disease) ([facility]); Stage 2 chronic kidney disease 04/19/2018 Office Visit Cardiology Cipriano, Severe aortic stenosis; Sudhir Claire, Coronary artery disease involving [place] coronary artery of [place] heart without angina pectoris; Essential hypertension; Carotid artery disease, unspecified laterality ([facility]) 04/19/2018 Hospital Encounter Radiology Cristobal Moreno Aortic valve stenosisNelson MD etiology of cardiac valve disease unspecified 04/19/2018 Hospital Encounter Radiology Cristobal Moreno Aortic valve stenosisNelson MD etiology of cardiac valve disease unspecified 04/15/2018 Outside Orders Central Scheduling Cristobal Moreno Aortic valve stenosisNelson MD etiology of cardiac valve disease unspecified (Primary Dx) after 01/26/2018 Family History Medical History Relation Name Comments [...] INFLUENZA VACCINE 08/30/2018 Implants Implanted Type Area Furnace Filler Device Shelf Model / Identifier Expiration Date Serial / Lot Valve Heart Payton 3 26mm [id number] - [id number] Valves PASTRANA LIFESCI [id number] / Implanted: Qty: 1 on 05/19/2018 by Cristobal Moreno MD [id number] / Procedures Procedure Name Priority Date/Time Associated [...] 394 ms QTC Calculation(Bazett) 454 ms P [place] 23 degrees R [place] 29 degrees T [place] 194 degrees Sinus rhythm with marked sinus [...] 388 ms QTC Calculation(Bazett) 450 ms P [place] 52 degrees R [place] 28 degrees T [place] 136 degrees Normal sinus rhythm with sinus [...] 376 ms QTC Calculation(Bazett) 444 ms P [place] 56 degrees R [place] 23 degrees T [place] 138 degrees Sinus rhythm with Premature atrial [...] 380 ms QTC Calculation(Bazett) 452 ms R [place] 188 degrees T [place] 33 degrees Normal sinus rhythm with sinus [...] TAVR (CV ANES) DEVANTE Special Needs SCOT [phone]/SHAWN TRANSFUSION SERVICE 04/22/2018 5:42 PM REPORT - [...] procedure are in the results section. after 01/26/2018 Results RHYTHM STRIP - SCAN (06/01/2018 8:10 AM CDT) Narrative Performed At POC-Glucose meter (05/30/2018 8:21 AM CDT)Only the most recent of32 resultswithin the time period is included. POC-Glucose Meter 112 (H)Comment: TESTED AT 70 - 110 mg/dL [facility] [address] [place] [address] Specimen Blood Performing Organization Address [facility] [place] [address] CENTER Prothrombin time/INR (05/30/2018 4:31 AM CDT)Only the most recent of8 resultswithin the time period is included. Protime 22.3 (H) 11.7 - 14.7 seconds [facility] INR 2.0 <=5.9 [facility] Specimen Blood - Arm, Right Narrative Performed At [facility] RECOMMENDED COUMADIN/WARFARIN INR THERAPY RANGES STANDARD DOSE: 2.0 - 3.0 Includes: PROPHYLAXIS for venous thrombosis, systemic embolization; TREATMENT for venous thrombosis and/or pulmonary embolus. HIGH RISK: Target INR is 2.5-3.5 for patients with mechanical heart valves. Performing Organization Address [facility] Centerconv Phone Number [address] [address] [place] CBC (Hemogram only) (05/30/2018 4:31 AM CDT)Only the most recent of8 resultswithin the time period is included. WBC 10.0 3.5 - 10.5 K/L [facility] RBC 3.44 (L) 4.63 - 6.08 M/L [facility] Hemoglobin 9.6 (L) 13.7 - 17.5 GM/DL [facility] Hematocrit 30.8 (L) 40.1 - 51.0 % [facility] MCV 89.5 79.0 - 92.2 fL [facility] MCH 27.9 25.7 - 32.2 pg [facility] MCHC 31.2 (L) 32.3 - 36.5 GM/DL [facility] RDW 16.1 (H) 11.6 - 14.4 % [facility] Platelets 169 150 - 450 K/CU MM [facility] MPV 11.5 9.4 - 12.4 fL [facility] nRBC 0 0 - 0 /100 WBC [facility] Specimen Blood - Arm, Right Performing Organization Address City/[facility] Phone Number [facility] [address] [place] [address] CENTER Basic Metabolic Panel (05/30/2018 4:31 AM CDT)Only the most recent of11 resultswithin the time period is included. Sodium 136 136 - 145 meq/L [facility] Potassium 3.7 3.5 - 5.1 meq/L [facility] Chloride 101 98 - 107 meq/L [facility] CO2 26 22 - 29 meq/L [facility] BUN 28 (H) 7 - 21 mg/dL [facility] Creatinine 1.31 (H) 0.57 - 1.25 mg/dL [facility] Glucose 74 70 - 105 mg/dL [facility] Calcium 8.9 8.4 - 10.2 mg/dL [facility] EGFR 52Comment: ESTIMATED GFR IS mL/min/1.73 sq m [facility] NOT ACCURATE CREATININE [facility]ENTER CLEARANCE IN PREDICTING GLOMERULAR FILTRATION RATE. ESTIMATED GFR IS NOT APPLICABLE FOR DIALYSIS PATIENTS. Specimen Blood - Arm, Right Performing Organization Address City/State/Zipcode Phone Number [facility] [address] [place], [place] [id number] CENTER Magnesium (05/28/2018 5:53 AM CDT)Only the most recent of9 resultswithin the time period is included. Magnesium 2.3 1.6 - 2.6 mg/dL [facility] Specimen Blood - Arm, Left Performing Organization Address City/[facility] Centercode Phone Number [facility] [address] [place], [place] [phone] CENTER Transfuse Leuko-Red RBC (05/26/2018 1:11 PM CDT)Only the most recent of2 resultswithin the time period is included.CBC with platelet count + automated diff (05/26/2018 6:27 AM CDT)Only the most recent of3 resultswithin the time period is included. WBC 12.2 (H) 3.5 - 10.5 K/L [facility] RBC 3.70 (L) 4.63 - 6.08 M/L [facility] Hemoglobin 10.6 (L) 13.7 - 17.5 GM/DL [facility] Hematocrit 33.2 (L) 40.1 - 51.0 % [facility] MCV 89.7 79.0 - 92.2 fL [facility] MCH 28.6 25.7 - 32.2 pg [facility] MCHC 31.9 (L) 32.3 - 36.5 GM/DL [facility] RDW 15.9 (H) 11.6 - 14.4 % [facility] Platelets 137 (L) 150 - 450 K/CU MM [facility] MPV 11.1 9.4 - 12.4 fL [facility] nRBC 0 0 - 0 /100 WBC [facility] % Neutros 54 % [facility] % Lymphs 33 % [facility] % Monos 8 % [facility] % Eos 3 % [facility] % Baso 0 % [facility] # Neutros 6.59 (H) 1.78 - 5.38 K/L [facility] # Lymphs 3.96 (H) 1.32 - 3.57 K/L [facility] # Monos 1.00 (H) 0.30 - 0.82 K/L [facility] # Eos 0.30 0.04 - 0.54 K/L [facility] # Baso 0.05 0.01 - 0.08 K/L [facility] Immature Granulocytes-Relative 2 (H) 0 - 1 % [facility] Specimen Blood - Arm, Right Performing Organization Address City/State/Zipcode Phone Number [facility] [address] [place] [address] brain without IV contrast (05/25/2018 7:04 PM CDT)Only the most recent of2 resultswithin the time period is included. Narrative Performed At FINAL REPORT [facility] CT head without contrast 05/25/2018 7:14 PM [...] MD Report Verified Date/Time:05/25/2018 19:17:21 Reading Location: [facility] Radiology Reading Room Procedure Note Interface, External [...] Report Verified Date/Time: 05/25/2018 19:17:21 Reading Location: [facility] Radiology Reading Room Performing Organization Address City/State/Zipcode Phone Number [facility] RIS TRANSFUSION SERVICE REPORT - SCAN (05/25/2018 6:00 PM CDT)Only the most recent of4 resultswithin the time period is included. Narrative Performed At Prepare Leuko-Red RBC (05/24/2018 11:54 PM CDT) CROSSMATCH COMPATIBLE SAFETRACE TX Unit ABO O Pos SAFETRACE TX UNIT NUMBER [id number] SAFETRACE TX Status TRANSFUSED SAFETRACE TX Blood Bank Product RED BLOOD CELLS SAFETRACE TX PRODUCT CODE [id number] SAFETRACE TX Specimen Other Performing Organization Address [facility] Phone Number SAFETRACE TX Type and screen, automated (05/23/2018 11:30 AM CDT)Only the most recent of2 resultswithin the time period is included. ABO/RH AUTOMATED (BEAKER) O POSITIVE [facility] Ab Scrn NEGATIVE [facility] Specimen Blood Performing Organization Address [facility] Phone Number [address] [address] aPTT (05/23/2018 6:15 AM CDT)Only the most recent of6 resultswithin the time period is included. PTT 94.3 (H) 22.5 - 36.0 seconds [facility] Specimen Blood Performing Organization Address [facility] Phone Number [address] [address] CENTER Iron, TIBC, % sat. (without ferritin) (05/23/2018 5:25 AM CDT) Iron 63 40 - 160 ug/dL [facility] TIBC 224 (L) 250 - 450 ug/dL [facility] Iron % Saturation 28 20 - 55 % [facility] Specimen Blood Performing Organization Address [facility] Phone Number [address] [address] CENTER Ferritin (05/23/2018 5:25 AM CDT) Ferritin 435 (H) 5 - 275 ng/mL [facility] Specimen Blood Performing Organization Address [facility] Centercode Phone Number [facility] [address] [place] [address] CENTER ECG 12 lead (05/22/2018 1:56 PM CDT)Only the most recent of4 resultswithin the time period is included. Narrative Performed At Ventricular Rate 80 BPM GE MUSE Atrial Rate 80 BPM P-R Interval 164 ms QRS Duration 100 ms Q-T Interval 394 ms QTC Calculation(Bazett) 454 ms P [place] 23 degrees R [place] 29 degrees T [place] 194 degrees Sinus rhythm with marked sinus [...] 394 ms QTC Calculation(Bazett) 454 ms P [place] 23 degrees R [place] 29 degrees T [place] 194 degrees Sinus rhythm with marked sinus arrhythmia ST & T wave abnormality, consider inferolateral ischemia Abnormal ECG When compared with ECG of 20-MAY-2018 06:03, ST no longer depressed in Lateral leads T wave inversion now evident in Inferior leads T wave inversion now evident in Anterior leads Confirmed by MD TERESA, ALEJANDRAMIJackie ([id number]) on 05/22/2018 2:20:53 PM Performing Organization Address City/[facility]/Zipcode Phone Number GE MUSE PT/aPTT (05/22/2018 2:19 AM CDT)Only the most recent of3 resultswithin the time period is included. Protime 15.0 (H) 11.7 - 14.7 seconds [facility] INR 1.2 <=5.9 [facility] PTT 179.7 (HH) 22.5 - 36.0 seconds [facility] Specimen Blood Narrative Performed At [facility] RECOMMENDED COUMADIN/WARFARIN INR THERAPY RANGES STANDARD DOSE: 2.0 - 3.0 Includes: PROPHYLAXIS for venous thrombosis, systemic embolization; TREATMENT for venous thrombosis and/or pulmonary embolus. HIGH RISK: Target INR is 2.5-3.5 for patients with mechanical heart valves. Performing Organization Address City/State/Zipcode Phone Number [address] [address] CENTER Calcium, Ionized (05/22/2018 2:19 AM CDT)Only the most recent of2 resultswithin the time period is included. Calcium, Ion 1.15 1.12 - 1.27 mmol/L [facility] pH, Blood 7.40 [facility] Specimen Blood Performing Organization Address [facility] Phone Number [address] [address] CENTER Phosphorus (05/22/2018 2:19 AM CDT)Only the most recent of3 resultswithin the time period is included. Phosphorus 3.6 2.3 - 4.7 mg/dL [facility] Specimen Blood Performing Organization Address [facility] Phone Number [address] [address] [place] Vancomycin level, random (05/22/2018 2:19 AM CDT) Vancomycin Rm 24.4 ug/mL [facility] Specimen Blood Narrative Performed At [facility] Reference Range: No Normals Performing Organization Address [facility] Centercode Phone Number [address] [address] CENTER MR brain without IV contrast (05/21/2018 11:53 AM CDT) Narrative Performed At FINAL REPORT [facility] MRI Brain without contrast Clinical History: Stroke [...] MD Report Verified Date/Time:05/21/2018 11:58:08 Reading Location: [address] Neuro Reading Room Procedure Note Interface, [...] Report Verified Date/Time: 05/21/2018 11:58:08 Reading Location: [address] Neuro Reading Room Performing Organization Address City/State/Zipcode Phone Number [facility] [employer] MRA neck without IV contrast (05/21/2018 11:53 AM CDT) Narrative Performed At FINAL REPORT [facility] MRA Head and Neck CLINICAL HISTORY: Stroke TECHNIQUE: MRA of the head utilizing 3-D irkf-nv-asqael technique, with 3-D reconstructions. MRA of the neck utilizing 2-D and 3-D ntpo-gs-ankkxu technique, with 3-D reconstructions. COMPARISON: None FINDINGS: There is no evidence for a [place] of [place] proximal branch vessel occlusion. There [...] vertebral arteries. IMPRESSION: No evidence for a [place] proximal branch vessel occlusion. No hemodynamically significant stenosis in the internal carotid arteries. 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 Signed: Jaycob Alvarado MD Report Verified Date/Time:05/21/2018 12:04:26 Reading Location: [address] Neuro Reading Room Procedure Note Interface, External Ris In - 05/21/2018 12:06 PM CDT FINAL REPORT MRA Head and Neck CLINICAL HISTORY: Stroke TECHNIQUE: MRA of the head utilizing 3-D mdqi-yl-rtkvkz technique, with 3-D reconstructions. MRA of the neck utilizing 2-D and 3-D pplg-jj-pscraa technique, with 3-D reconstructions. COMPARISON: None FINDINGS: There is no evidence for a [place] proximal branch vessel occlusion. There [...] vertebral arteries. IMPRESSION: No evidence for a [place] proximal branch vessel occlusion. No hemodynamically significant stenosis in the internal carotid arteries. 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 Signed: Jaycob Alvarado MD Report Verified Date/Time: 05/21/2018 12:04:26 Reading Location: [address] Neuro Reading Room Performing Organization Address City/State/Zipcode Phone Number [facility] MRA head without IV contrast (05/21/2018 11:53 AM CDT) Narrative Performed At FINAL REPORT [facility] MRA Head and Neck CLINICAL HISTORY: Stroke TECHNIQUE: MRA of the head utilizing 3-D lshw-sg-bkvplg technique, with 3-D reconstructions. MRA of the neck utilizing 2-D and 3-D puzl-ql-xbcwne technique, with 3-D reconstructions. COMPARISON: None FINDINGS: There is no evidence for a [place] proximal branch vessel occlusion. There [...] vertebral arteries. IMPRESSION: No evidence for a [place] proximal branch vessel occlusion. No hemodynamically significant stenosis in the internal carotid arteries. 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 Signed: Jaycob Alvarado MD Report Verified Date/Time:05/21/2018 12:04:26 Reading Location: [address] Neuro Reading Room Procedure Note Interface, External Ris In - 05/21/2018 12:06 PM CDT FINAL REPORT MRA Head and Neck CLINICAL HISTORY: Stroke TECHNIQUE: MRA of the head utilizing 3-D tdye-jh-tmtprg technique, with 3-D reconstructions. MRA of the neck utilizing 2-D and 3-D ketg-jn-fyfyfp technique, with 3-D reconstructions. COMPARISON: None FINDINGS: There is no evidence for a [place] proximal branch vessel occlusion. There [...] vertebral arteries. IMPRESSION: No evidence for a [place] proximal branch vessel occlusion. No hemodynamically significant stenosis in the internal carotid arteries. 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 Signed: Jaycob Alvarado MD Report Verified Date/Time: 05/21/2018 12:04:26 Reading Location: [facility] [id number] Neuro Reading Room Performing Organization Address City/State/Zipcode Phone Number [facility] XR chest 1 view portable / bedside (05/21/2018 7:27 AM CDT)Only the most recent of2 resultswithin the time period is included. Narrative Performed At FINAL REPORT [facility] Portable chest CLINICAL HISTORY: Hypoxemia. COMPARISON STUDY: May 19, 2018. FINDINGS: The cardiac silhouette is unremarkable. The patient is status post sternotomy and valve replacement. There are increased interstitial markings with atelectatic changes in the lung bases and costophrenic angle blunting. No pneumothorax is noted. Degenerative changes are seen. IMPRESSION: No significant change. Signed: Addy Zapata MD Report Verified Date/Time:05/21/2018 10:54:40 Reading Location: [facility] [id number] Ortho Consult Reading Room Procedure Note [...] Report Verified Date/Time: 05/21/2018 10:54:40 Reading Location: [address] Ortho Consult Reading Room Performing Organization Address City/[facility] Cent[facility]ode Phone Number RIS TSH/Free T4 If Indicated (05/21/2018 2:59 AM CDT) TSH 0.77 0.35 - 4.94 uIU/mL [facility] Specimen Blood Performing Organization Address [facility] Phone Number [address] [address] [phone] CENTER Hemoglobin A1c (05/21/2018 2:59 AM CDT) Hemoglobin A1C 8.1 (H) 4.3 - 6.1 % [facility] Specimen Blood Performing Organization Address City/[facility] Centercode Phone Number [address] [address] [place] Vitamin B12 (05/21/2018 2:59 AM CDT) Vitamin B12 692 213 - 816 pg/mL [facility] Specimen Blood Performing Organization Address [facility] Centercode Phone Number [address] [address] CENTER Lipid panel (05/21/2018 2:59 AM CDT) Triglycerides 348 mg/dL [facility] Cholesterol 208 mg/dL [facility] HDL 26 mg/dL [facility] LDL Calculated 112 mg/dL [facility] Specimen Blood Narrative Performed At [facility] Triglyceride Reference Range: Low Risk <150 [id number] High Risk 200-499 Very High Risk>=500 Cholesterol Reference Range: Low Risk <200 [id number] High Risk>240 HDL Cholesterol Reference Range: Low Risk >=60 High Risk <40 LDL Cholesterol Reference Range: Optimal<100 Near [id number] Pqrtrsypsf130-619 [id number] Very High >=190 Performing Organization Address City/State/Zipcode Phone Number [facility] [address] [place] [address] [phone] CENTER ECHOCARDIOGRAM REPORT - SCAN (05/20/2018 6:50 PM CDT) Narrative Performed At CARDIAC CATH REPORT - SCAN (05/20/2018 3:41 PM CDT) Narrative Performed At EEG AWAKE AND DROWSY (05/20/2018 2:38 PM CDT) Narrative Performed At Date(s) of EE05/20/2018 GE RIS DATE OF REPORT: 05/20/2018 ACC: [id number] EEG Number: [id number] Test Location: Inpatient ICU Start time: 14:17 Stop time: 14:38 ICD-10: R56.9 CPT Code: 92617 HISTORY: 87 y.o. RHM w/ severe who [...] Fellow, PGY5 Linette Choe MD Attending Neurophysiologist [facility] Procedure Note Interface, External Ris In - 05/20/2018 3:54 PM CDT Date(s) of EE05/20/2018 DATE OF REPORT: 05/20/2018 ACC: [id number] EEG Number: [id number] Test Location: Inpatient ICU Start time: 14:17 Stop time: 14:38 ICD-10: R56.9 CPT Code: 67223 HISTORY: 87 y.o. RHM w/ severe who [...] Fellow, PGY5 Linette Choe MD Attending Neurophysiologist [facility] Performing Organization Address [facility] Cent[facility]ode Phone Number [facility] XR abdomen / KUB 1 view (05/20/2018 11:22 AM CDT) Narrative Performed At FINAL REPORT [facility] Abdomen one view INDICATION: Nasogastric tube insertion COMPARISON: None available IMPRESSION: NG tube extends to the gastric body. The imaged bowel gas pattern is nonspecific. There are degenerative spine changes and incidental vascular calcifications. The imaged chest is similar to 05/19/2018. Signed: Virgil Kraft MD Report Verified Date/Time:05/20/2018 11:33:02 Reading Location: [facility] Radiology Reading Room Procedure Note Interface, External [...] Report Verified Date/Time: 05/20/2018 11:33:02 Reading Location: [facility] Radiology Reading Room Performing Organization Address [facility] Phone Number GE RIS Troponin I (05/20/2018 11:05 AM CDT)Only the most recent of2 resultswithin the time period is included. Troponin I 1.13 (HH) 0.00 - 0.03 ng/mL [facility] Specimen Blood - Arm, Right Narrative Performed At [facility] Troponin I (TnI) levels must [...] disease, and persistent tachyarrhythmia. Performing Organization Address City/[facility]/Zipcode Phone Number [address] [address] CENTER Lactic acid, venous, whole blood (05/20/2018 11:05 AM CDT) Lactate, Venous 2.1 0.5 - 2.2 mmol/L [facility] Specimen Blood - Arm, Right Narrative Performed At [facility] Effective 04/02/2016: Units/Reference Range Change New: 0.5-2.2 mmol/LPrevious: 5-20 mg/dL Performing Organization Address City/[facility]/Zipcode Phone Number [address] [address] CENTER Blood gas, venous (05/20/2018 11:05 AM CDT) pH, Phil 7.40 7.32 - 7.42 [facility] pCO2, Phil 45 41 - 51 mmHg [facility] pO2, Phil 26 25 - 40 mmHg [facility] O2 Sat, Phil 46.3 40.0 - 70.0 % [facility] HCO3, Phil 27 21 - 29 mmol/L [facility] Base Excess, Phil 1.8 -2.0 - 3.0 mmol/L [facility] Patient Temperature 36.9 C [facility] FIO2 36.0 % [facility] Specimen Blood - Arm, Right Performing Organization Address City/State/Zipcode Phone Number [address] [address] [place] Creatine Kinase (CK), Total and MB (05/20/2018 11:05 AM CDT)Only the most recent of2 resultswithin the time period is included. Total CK 138 29 - 200 U/L [facility] CK-MB 4.2 0.0 - 6.6 ng/mL [facility] MB Relative Index 3.0 % [facility] Specimen Blood - Arm, Right Narrative Performed At CK-MB Reference Range: [facility] <6.7Normal 6.7-10.0Borderline >10.0 Abnormal Performing Organization Address City/[facility] Cent[facility] Phone Number [address] [address] [place] Comprehensive metabolic panel (05/20/2018 11:05 AM CDT)Only the most recent of2 resultswithin the time period is included. Protein, Total 5.7 (L) 6.0 - 8.3 gm/dL [facility] Albumin 3.4 (L) 3.5 - 5.0 g/dL [facility] Alkaline Phosphatase 42 40 - 150 U/L [facility] Total Bilirubin 0.8 0.2 - 1.2 mg/dL [facility] Sodium 139 136 - 145 meq/L [facility] Potassium 4.2 3.5 - 5.1 meq/L [facility] Chloride 100 98 - 107 meq/L [facility] CO2 23 22 - 29 meq/L [facility] BUN 38 (H) 7 - 21 mg/dL [facility] Creatinine 2.17 (H) 0.57 - 1.25 mg/dL [facility] Glucose 129 (H) 70 - 105 mg/dL [facility] Calcium 9.0 8.4 - 10.2 mg/dL [facility] AST 27 5 - 34 U/L [facility] ALT 14 6 - 55 U/L [facility] EGFR 29Comment: ESTIMATED GFR mL/min/1.73 sq m [facility] IS NOT ACCURATE [facility] CREATININE CLEARANCE IN PREDICTING GLOMERULAR FILTRATION RATE. ESTIMATED GFR IS NOT APPLICABLE FOR DIALYSIS PATIENTS. Specimen Blood - Arm, Right Performing Organization Address City/State/Zipcode Phone Number [facility] [address] [place] [address] [phone] CENTER ECHOCARDIOGRAM REPORT - SCAN (05/20/2018 9:50 AM CDT) Narrative Performed At 2D Echo W/Doppler(CW/PW/Color) (05/20/2018 9:24 AM CDT) Ejection Fraction [facility] Narrative Performed At Transthoracic Echocardiography Report (TTE) [facility] Demographics Patient Name Catherine SEXTON of Study 05/20/2018 RIOS [id number] GenderMale Visit Number [id number] Room Number 8A11 Number Date of Birth1930Referring Physician Cristobal Moreno MD Age87 year(s)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 Jamari Matute [facility] AnalystAlex Joaquin Bejarano Physician Procedure Type of [...] Study 05/20/2018 RIOS Gender Male Visit Number [id number] Race Room Number 8A11 Number Date of 1930 Referring Physician Cristobal Moreno MD Age 87 year(s) 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 Jamari Matute [facility] Plate Maker Sean Nuñez Interpreting Andrews Bejarano, Physician Procedure [...] LVOT VTI: 22.17 cm Performing Organization Address [facility] Phone Number [facility] E[facility]ART[facility] MKCKESSON CPACS Urinalysis w/Microscopic (05/19/2018 11:32 PM CDT) Color, UA Yellow [facility] Clarity, UA Clear [facility] Specific [place], UA 1.017 1.001 - 1.035 [facility] pH, UA 5.0 5.0 - 8.0 [facility] Protein, UA Negative Negative [facility] Glucose, UA Negative Negative [facility] Ketones, UA Negative Negative [facility] Bilirubin, UA Negative Negative [facility] Blood, UA Small (A) Negative [facility] Nitrite, UA Negative Negative [facility] Leukocytes, UA Negative Negative [facility] Urobilinogen, UA 0.2 0.2 - 1.0 mg/dL [facility] RBC, UA 12 /HPF [facility] WBC, UA 1 /HPF [facility] Mucus Rare [facility] Amorphous Crystals Occasional [facility] Specimen Source Urine, Corral [facility] Specimen Urine - Urine, Corral Performing Organization Address [facility]/Zipcode Phone Number [address] [phone] [place] Urine culture (05/19/2018 11:31 PM CDT) Result No growth [facility] Specimen Urine - Urine, Corral Performing Organization Address [facility] Phone Number [address] [phone] [place] Blood culture (05/19/2018 11:23 PM CDT)Only the most recent of2 resultswithin the time period is included. Result No growth in 5 days [facility] Specimen Blood - Arm, Left Performing Organization Address [facility] Phone Number [address] [address] [place] POC-Lactic Acid, Arterial (05/19/2018 9:17 PM CDT) POC-Lactic Acid, 1.5 (H)Comment: 0.4 - 1.3 mmol/L [facility] Arterial TESTED AT [address] [address] Specimen Blood Performing Organization Address [facility] Phone Number [address] [address] [phone] [place] POCT-HEMATOCRIT (05/19/2018 9:07 PM CDT) POC-Hematocrit 32 (L)Comment: TESTED AT 40 - 50 % [address] [address] Specimen Blood Performing Organization Address [facility] Phone Number [address] [address] [phone] [place] POCT-HEMOGLOBIN (05/19/2018 9:07 PM CDT) POC-Hemoglobin 10.9 (L)Comment: TESTED AT 13.0 - 16.8 g/dL [address] [address]DXVSBN AT [address] [address] Specimen Blood Performing Organization Address City/[facility]/Zipcode Phone Number [address] [address] [place] POCT-GLUCOSE (05/19/2018 9:07 PM CDT) POC-Glucose 152 (H)Comment: TESTED AT 70 - 110 mg/dL [address] [address] Specimen Blood Performing Organization Address City/[facility] Centercode Phone Number [address] [address] [place] POC-Sodium (05/19/2018 9:07 PM CDT) POC-Sodium 137Comment: TESTED AT [facility] 135 - 148 meq/L [address] [address] Specimen Blood Performing Organization Address [facility] Centerconv Phone Number [address] [address] [place] POC-Potassium (05/19/2018 9:07 PM CDT) POC-Potassium 3.6Comment: TESTED AT [facility] 3.6 - 5.5 meq/L [address] [address] Specimen Blood Performing Organization Address [facility] Phone Number [address] [address] [place] POC-Calcium ionized (05/19/2018 9:07 PM CDT) POC-Calcium Ionized 1.19Comment: TESTED AT 1.12 - 1.27 mmol/L [address] [address] Specimen Blood Performing Organization Address City/[facility] Centercode Phone Number [address] [phone] CENTER POC-Blood gases, arterial (05/19/2018 9:07 PM CDT) Temp. Celsius-POC 37.1 [facility] FIO2-POC 29Comment: TESTED AT [facility] [address] [facility] [address] pH, Arterial-POC 7.468 (H) 7.350 - 7.450 [facility] PCO2, Arterial-POC 34.4 (L) 35.0 - 45.0 mm Hg [facility] PO2, Arterial-POC 63.0 (L) 80.0 - 90.0 mm Hg [facility] SO2, Arterial-POC 93.0 (L) 96.0 - 97.0 % [facility] HCO3, Arterilal-POC 24.9 21.0 - 29.0 meq/L [facility] BE, Arterial-POC 1.0 -2.0 - 3.0 meq/L [facility] Specimen Blood Performing Organization Address City/State/Zipcode Phone Number [address] brain/stroke test design (05/19/2018 8:42 PM CDT) Narrative Performed At FINAL REPORT [facility] CT head without contrast 05/19/2018 [...] MD Report Verified Date/Time:05/19/2018 20:46:09 Reading Location: [facility] Radiology Reading Room Procedure Note Interface, External [...] Report Verified Date/Time: 05/19/2018 20:46:09 Reading Location: [facility] Radiology Reading Room Performing Organization Address City/State/Zipcode Phone Number RIS Prepare RBC (05/19/2018 10:47 AM CDT) CROSSMATCH COMPATIBLE SAFETRACE TX Unit ABO O Pos SAFETRACE TX UNIT NUMBER [id number] SAFETRACE TX Status RETURNED FROM ISSUE SAFETRACE TX Blood Bank Product RED BLOOD CELLS SAFETRACE TX PRODUCT CODE [id number] SAFETRACE TX CROSSMATCH COMPATIBLE SAFETRACE TX Unit ABO O Pos SAFETRACE TX UNIT NUMBER [id number] SAFETRACE TX Status RETURNED FROM ISSUE SAFETRACE TX Blood Bank Product RED BLOOD CELLS SAFETRACE TX PRODUCT CODE [id number] SAFETRACE TX CROSSMATCH COMPATIBLE SAFETRACE TX Unit ABO O Pos SAFETRACE TX UNIT NUMBER [id number] SAFETRACE TX Status RETURNED FROM ISSUE SAFETRACE TX Blood Bank Product RED BLOOD CELLS SAFETRACE TX PRODUCT CODE [id number] SAFETRACE TX CROSSMATCH COMPATIBLE SAFETRACE TX Unit ABO O Pos SAFETRACE TX UNIT NUMBER [id number] SAFETRACE TX Status RETURNED FROM ISSUE SAFETRACE TX Blood Bank Product RED BLOOD CELLS SAFETRACE TX PRODUCT CODE [id number] SAFETRACE TX Performing Organization Address [facility] Centercode Phone Number SAFETRACE TX POC ACTIVATED CLOTTING TIME (05/19/2018 8:59 AM CDT) Activated Clotting Time 329Comment: TESTED AT [address] [address] Specimen Blood Performing Organization Address [facility] Phone Number [address] [phone] CENTER 2D Echo W/Doppler(CW/PW/Color) (05/19/2018 7:51 AM CDT) Ejection Fraction [facility]CHO [facility] Narrative Performed At Transthoracic Echocardiography Report (TTE) [facility] ECHO [facility] Demographics Patient Name Catherine SEXTON of Study 05/19/2018 RIOS [id number] GenderMale Visit Number [id number] Room Number 8A11 Number Date of Birth1930Referring Physician Cristobal Moreno MD 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 Performing Organization Address City/[facility]/Zipcode Phone Number [facility] ECHO [facility]ART[facility] MK[facility]ON CPACS B-type Natriuretic Factor (BNP) (04/21/2018 1:51 PM CDT) BNP 785 (H) 0 - 100 pg/mL [facility] Specimen Blood Performing Organization Address City/State/Zipcode Phone Number [place] [phone] [place] [address] [phone] CENTER CTA chest (04/19/2018 10:17 AM CDT) Narrative Performed At Addendum Begins Bit [facility] REPORT STATUS:A Addendum: I agree with the previously described non vascular findings.. Additionally, the lungs demonstrate fibrotic changes which are most pronounced in the bilateral bases. Biapical pleural-parenchymal scarring is present. Signed: Dejon Bland MD Report Verified Date/Time:04/20/2018 12:54:28 Reading Location: [facility] P048 Angio Body Reading Room Addendum [...] measures 7.3 and 7.9 mm, respectively with zseb-fw-igqicgvvlrofwhipug and nocalcific atherosclerosis present. The minimum and [...] 5.An addendum will be dictated by the Conductor Symphonic Orchestra Radiologist regarding the nonvascular findings. Signed: Puneet Espinoza MD Report Verified Date/Time:04/19/2018 14:19:03 Reading Location: [place] [address] Cardiology MRI Procedure Note Interface, External Ris In - 04/20/2018 12:56 PM CDT Addendum Begins REPORT STATUS:A Addendum: I agree with the previously described non vascular findings.. Additionally, the lungs demonstrate fibrotic changes which are most pronounced in the bilateral bases. Biapical pleural-parenchymal scarring is present. Signed: Dejon Bland MD Report Verified Date/Time: 04/20/2018 12:54:28 Reading Location: [place] [address] Angio Body Reading Room Addendum Ends FINAL [...] measures 7.3 and 7.9 mm, respectively with utlt-ac-zubpczmd tortuosity and no calcific atherosclerosis present. The [...] An addendum will be dictated by the Conductor Symphonic Orchestra Radiologist regarding the nonvascular findings. Signed: Puneet Espinoza MD Report Verified Date/Time: 04/19/2018 14:19:03 Reading Location: [place] [address] Cardiology MRI Performing Organization Address City/State/Zipcode Phone Number [facility] CTA abdomen & pelvis (04/19/2018 10:17 AM CDT) Narrative Performed At Addendum Begins [facility] REPORT STATUS:A Addendum: I agree with the previously described non vascular findings.. Additionally, the lungs demonstrate fibrotic changes which are most pronounced in the bilateral bases. Biapical pleural-parenchymal scarring is present. Signed: Dejon Bland MD Report Verified Date/Time:04/20/2018 12:54:28 Reading Location: [place] [id number] Angio Body Reading Room Addendum Ends FINAL [...] measures 7.3 and 7.9 mm, respectively with bxfi-lw-jklmvafwsyfhpurove and nocalcific atherosclerosis present. The minimum and [...] 5.An addendum will be dictated by the Conductor Symphonic Orchestra Radiologist regarding the nonvascular findings. Signed: Puneet Espinoza MD Report Verified Date/Time:04/19/2018 14:19:03 Reading Location: [place] [id number] Cardiology MRI Procedure Note Interface, External Ris In - 04/20/2018 12:56 PM CDT Addendum Begins REPORT STATUS:A Addendum: I agree with the previously described non vascular findings.. Additionally, the lungs demonstrate fibrotic changes which are most pronounced in the bilateral bases. Biapical pleural-parenchymal scarring is present. Signed: Dejon Bland MD Report Verified Date/Time: 04/20/2018 12:54:28 Reading Location: [facility] P048 Angio Body Reading Room Addendum [...] measures 7.3 and 7.9 mm, respectively with khzi-qc-vttrlyjp tortuosity and no calcific atherosclerosis present. The [...] An addendum will be dictated by the Conductor Symphonic Orchestra Radiologist regarding the nonvascular findings. Signed: Puneet Espinoza MD Report Verified Date/Time: 04/19/2018 14:19:03 Reading Location: [place] [address] Cardiology MRI Performing Organization Address City/[facility] Centercode Phone Number GE [facility]IS POC-Creatinine (04/19/2018 9:34 AM CDT) POC-Creatinine 1.3Comment: TESTED AT 0.6 - 1.3 mg/dL [facility] [address] [place] [address] POC-EGFR 52 mL/min/1.73M2 [facility] Specimen Blood Performing Organization Address City/[facility] Centercode Phone Number [facility] [address] [place] [address] CENTER after 01/26/2018 Insurance Payer Benefit Plan / Group Subscriber ID Type Phone Address MEDICARE MEDICARE A B xxxxxxxxxx Medicare AETNA - MGD CARE AETNA INDEMNITY NON CONTR xxxxxxxxxx Comm Advance Directives For more information, please contact:[address] [phone] Code Status Date Activated Date Inactivated Comments Full Code 05/19/2018 5:27 AM 05/30/2018 5:08 PM This code status was determined by: Patient
--- OUTSIDE RECORDS SUMMARY | 2019-01-27 13:57 | XMS REPORT ---
:1930 Author Organization [facility] Address [address] [place] [address] Care Team Providers Name Role Phone TONIE [...] (BEAKER) (test 112 mg/dL 70-110 TESTED AT [address] edwl=1872) [facility] [address] POCT-GLUCOSE [id number] 08:17:00 Test Item Value Reference Range Comments POC-GLUCOSE METER (BEAKER) 98 mg/dL 70-110 TESTED AT [address] (test ptpj=2974) [place] [id number] BASIC METABOLIC [id number] 06:16:00 Test Item Value Reference Range Comments SODIUM (BEAKER) (test 136 meq/L 136-145 gmzk=580) POTASSIUM (BEAKER) (test 3.7 meq/L 3.5-5.1 xqig=019) CHLORIDE (BEAKER) (test 101 meq/L 98-107 awpx=903) CO2 (BEAKER) (test 26 meq/L 22-29 ibgd=549) BLOOD UREA NITROGEN 28 mg/dL 7-21 (BEAKER) (test jzgd=809) CREATININE (BEAKER) (test 1.31 mg/dL 0.57-1.25 gafc=651) GLUCOSE RANDOM (BEAKER) 74 mg/dL 70-105 (test iqfv=489) CALCIUM (BEAKER) (test 8.9 mg/dL 8.4-10.2 jxhc=222) EGFR (BEAKER) (test 52 mL/min/1.73 sq m ESTIMATED GFR IS NOT qhnc=5259) ACCURATE CREATININE CLEARANCE IN PREDICTING GLOMERULAR FILTRATION RATE. ESTIMATED GFR IS NOT APPLICABLE FOR DIALYSIS PATIENTS. PROTHROMBIN TIME/[id number] 05:42:00 Test Item Value Reference Range Comments PROTIME (BEAKER) (test uyiy=057) 22.3 seconds 11.7-14.7 INR (BEAKER) (test ycpc=090) 2.0 <=5.9 RECOMMENDED COUMADIN/WARFARIN INR THERAPY RANGESSTANDARD DOSE: 2.0 - 3.0 Includes: PROPHYLAXIS forvenous thrombosis, systemic embolization; TREATMENT for venous thrombosis and/or pulmonary embolus.HIGH RISK: Target INR is 2.5-3.5 for patients with mechanical heart valves.CBC (HEMOGRAM ONLY)2018-05-30 05:34:00 Test Item Value Reference Range Comments WHITE BLOOD CELL COUNT (BEAKER) (test ivrf=049) 10.0 K/ L 3.5-10.5 RED BLOOD CELL COUNT (BEAKER) (test elgm=829) 3.44 M/ L 4.63-6.08 HEMOGLOBIN (BEAKER) (test bnon=975) 9.6 GM/DL 13.7-17.5 HEMATOCRIT (BEAKER) (test rqxo=373) 30.8 % 40.1-51.0 MEAN CORPUSCULAR VOLUME (BEAKER) (test nmsq=566) 89.5 fL 79.0-92.2 MEAN CORPUSCULAR HEMOGLOBIN (BEAKER) (test 27.9 pg 25.7-32.2 ovua=190) MEAN CORPUSCULAR HEMOGLOBIN CONC (BEAKER) (test 31.2 GM/DL 32.3-36.5 uuco=548) RED CELL DISTRIBUTION WIDTH (BEAKER) (test 16.1 % 11.6-14.4 nene=598) PLATELET COUNT (BEAKER) (test zmxy=331) 169 K/CU MM 150-450 MEAN PLATELET VOLUME (BEAKER) (test rnec=015) 11.5 fL 9.4-12.4 NUCLEATED RED BLOOD CELLS (BEAKER) (test 0 /100 WBC 0-0 wcmi=308) POCT-GLUCOSE [id number] 21:35:00 Test Item Value Reference Range Comments POC-GLUCOSE METER (BEAKER) 203 mg/dL 70-110 TESTED AT [address] (test xdbo=6670) [place] [id number] POCT-GLUCOSE [id number] 16:47:00 Test Item Value Reference Range Comments POC-GLUCOSE METER (BEAKER) 177 mg/dL 70-110 TESTED AT [address] (test cxtu=8333) [place] [address] POCT-GLUCOSE [id number] 12:17:00 Test Item Value Reference Range Comments POC-GLUCOSE METER (BEAKER) 139 mg/dL 70-110 TESTED AT [address] (test kgzw=5469) [place] [address] POCT-GLUCOSE [id number] 08:38:00 Test Item Value Reference Range Comments POC-GLUCOSE METER (BEAKER) 83 mg/dL 70-110 TESTED AT [address] (test nqyv=0918) [place] [address] PROTHROMBIN [id number] 06:39:00 Test Item Value Reference Range Comments PROTIME (BEAKER) (test gvck=075) 23.6 seconds 11.7-14.7 INR (BEAKER) (test wsxf=921) 2.1 <=5.9 RECOMMENDED COUMADIN/WARFARIN INR THERAPY RANGESSTANDARD DOSE: 2.0 - 3.0 Includes: PROPHYLAXIS forvenous thrombosis, systemic embolization; TREATMENT for venous thrombosis and/or pulmonary embolus.HIGH RISK: Target INR is 2.5-3.5 for patients with mechanical heart valves.POCT-GLUCOSE [id number] 21:31:00 Test Item Value Reference Range Comments POC-GLUCOSE METER (BEAKER) 187 mg/dL 70-110 TESTED AT [address] (test kgrj=1751) [place] [address] POCT-GLUCOSE [id number] 11:55:00 Test Item Value Reference Range Comments POC-GLUCOSE METER (BEAKER) 250 mg/dL 70-110 TESTED AT [address] (test knft=1539) [place] [address] POCT-GLUCOSE [id number] 07:55:00 Test Item Value Reference Range Comments POC-GLUCOSE METER (BEAKER) 156 mg/dL 70-110 TESTED AT [address] (test niel=5866) [place] [address] [id number] 07:33:00 Test Item Value Reference Range Comments MAGNESIUM (BEAKER) (test wwhc=994) 2.3 mg/dL 1.6-2.6 PROTHROMBIN [id number] 06:33:00 Test Item Value Reference Range Comments PROTIME (BEAKER) (test qjsa=366) 20.3 seconds 11.7-14.7 INR (BEAKER) (test wpzv=340) 1.7 <=5.9 RECOMMENDED COUMADIN/WARFARIN INR THERAPY RANGESSTANDARD DOSE: 2.0 - 3.0 Includes: PROPHYLAXIS forvenous thrombosis, systemic embolization; TREATMENT for venous thrombosis and/or pulmonary embolus.HIGH RISK: Target INR is 2.5-3.5 for patients with mechanical heart valves.BASIC METABOLIC [id number] 21:18: 00 Test Item Value Reference Range Comments SODIUM (BEAKER) (test 137 meq/L 136-145 jvgg=917) POTASSIUM (BEAKER) (test 4.1 meq/L 3.5-5.1 ptjz=714) CHLORIDE (BEAKER) (test 102 meq/L 98-107 cwcj=707) CO2 (BEAKER) (test 26 meq/L 22-29 rigg=306) BLOOD UREA NITROGEN 32 mg/dL 7-21 (BEAKER) (test wxid=777) CREATININE (BEAKER) (test 1.30 mg/dL 0.57-1.25 wbwr=517) GLUCOSE RANDOM (BEAKER) 95 mg/dL 70-105 (test qdbl=212) CALCIUM (BEAKER) (test 9.1 mg/dL 8.4-10.2 bfst=878) EGFR (BEAKER) (test 52 mL/min/1.73 sq m ESTIMATED GFR IS NOT wjuv=6724) ACCURATE CREATININE CLEARANCE IN PREDICTING GLOMERULAR FILTRATION RATE. ESTIMATED GFR IS NOT APPLICABLE FOR DIALYSIS PATIENTS. POCT-GLUCOSE [id number] 21:16:00 Test Item Value Reference Range Comments POC-GLUCOSE METER (BEAKER) 94 mg/dL 70-[address] [facility] [address] [facility] (test flpu=6243) [facility] [address] CBC (HEMOGRAM ONLY)2018-05-27 21:04:00 Test Item Value Reference Range Comments WHITE BLOOD CELL COUNT (BEAKER) (test gwzo=644) 11.1 K/ L 3.5-10.5 RED BLOOD CELL COUNT (BEAKER) (test chny=262) 3.63 M/ L 4.63-6.08 HEMOGLOBIN (BEAKER) (test fjgv=536) 10.1 GM/DL 13.7-17.5 HEMATOCRIT (BEAKER) (test kkna=657) 32.6 % 40.1-51.0 MEAN CORPUSCULAR VOLUME (BEAKER) (test xrps=495) 89.8 fL 79.0-92.2 MEAN CORPUSCULAR HEMOGLOBIN (BEAKER) (test 27.8 pg 25.7-32.2 gsca=620) MEAN CORPUSCULAR HEMOGLOBIN CONC (BEAKER) (test 31.0 GM/DL 32.3-36.5 juvz=446) RED CELL DISTRIBUTION WIDTH (BEAKER) (test 15.9 % 11.6-14.4 wbkc=939) PLATELET COUNT (BEAKER) (test fokz=879) 171 K/CU MM 150-450 MEAN PLATELET VOLUME (BEAKER) (test vmct=426) 11.4 fL 9.4-12.4 NUCLEATED RED BLOOD CELLS (BEAKER) (test 0 /100 WBC 0-0 nbgn=772) POCT-GLUCOSE [id number] 17:03:00 Test Item Value Reference Range Comments POC-GLUCOSE METER (BEAKER) 226 mg/dL 70-110 TESTED AT [address] (test hcoj=3375) [place] [address] POCT-GLUCOSE [id number] 11:53:00 Test Item Value Reference Range Comments POC-GLUCOSE METER (BEAKER) 154 mg/dL 70-110 TESTED AT [address] (test logc=7400) [place] [address] POCT-GLUCOSE [id number] 07:58:00 Test Item Value Reference Range Comments POC-GLUCOSE METER (BEAKER) 78 mg/dL 70-110 TESTED AT [address] (test egvj=7262) [place] [address] [id number] 06:27:00 Test Item Value Reference Range Comments MAGNESIUM (BEAKER) (test bvjh=878) 2.1 mg/dL 1.6-2.6 PROTHROMBIN TIME/[id number] 05:53:00 Test Item Value Reference Range Comments PROTIME (BEAKER) (test ztyi=867) 19.1 seconds 11.7-14.7 INR (BEAKER) (test houx=052) 1.6 <=5.9 RECOMMENDED COUMADIN/WARFARIN INR THERAPY RANGESSTANDARD DOSE: 2.0 - 3.0 Includes: PROPHYLAXIS forvenous thrombosis, systemic embolization; TREATMENT for venous thrombosis and/or pulmonary embolus.HIGH RISK: Target INR is 2.5-3.5 for patients with mechanical heart valves.POCT-GLUCOSE [id number] 21:34:00 Test Item Value Reference Range Comments POC-GLUCOSE METER (BEAKER) 221 mg/dL 70-110 TESTED AT [address] (test mnps=8680) [place] [address] POCT-GLUCOSE [id number] 18:12:00 Test Item Value Reference Range Comments POC-GLUCOSE METER (BEAKER) 173 mg/dL 70-110 TESTED AT [address] (test jnjj=1878) [place] [address] POCT-GLUCOSE [id number] 12:42:00 Test Item Value Reference Range Comments POC-GLUCOSE METER (BEAKER) 286 mg/dL 70-110 TESTED AT [address] (test diry=9371) [place] [address] POCT-GLUCOSE [id number] 08:40:00 Test Item Value Reference Range Comments POC-GLUCOSE METER (BEAKER) 91 mg/dL 70-110 TESTED AT [address] (test eqsu=9277) [place] [address] [id number] 07:52:00 Test Item Value Reference Range Comments MAGNESIUM (BEAKER) (test kvko=438) 2.2 mg/dL 1.6-2.6 PROTHROMBIN TIME/[id number] 07:30:00 Test Item Value Reference Range Comments PROTIME (BEAKER) (test jcdt=770) 15.1 seconds 11.7-14.7 INR (BEAKER) (test ajny=017) 1.2 <=5.9 RECOMMENDED COUMADIN/WARFARIN INR THERAPY RANGESSTANDARD DOSE: 2.0 - 3.0 Includes: PROPHYLAXIS forvenous thrombosis, systemic embolization; TREATMENT for venous thrombosis and/or pulmonary embolus.HIGH RISK: Target INR is 2.5-3.5 for patients with mechanical heart valves.CBC W/PLT COUNT & AUTO [id number] 07:24:00 Test Item Value Reference Range Comments WHITE BLOOD CELL COUNT (BEAKER) (test uden=449) 12.2 K/ L 3.5-10.5 RED BLOOD CELL COUNT (BEAKER) (test cxps=385) 3.70 M/ L 4.63-6.08 HEMOGLOBIN (BEAKER) (test sfrh=477) 10.6 GM/DL 13.7-17.5 HEMATOCRIT (BEAKER) (test tupj=902) 33.2 % 40.1-51.0 MEAN CORPUSCULAR VOLUME (BEAKER) (test jqhr=034) 89.7 fL 79.0-92.2 MEAN CORPUSCULAR HEMOGLOBIN (BEAKER) (test 28.6 pg 25.7-32.2 iopo=517) MEAN CORPUSCULAR HEMOGLOBIN CONC (BEAKER) (test 31.9 GM/DL 32.3-36.5 osvh=413) RED CELL DISTRIBUTION WIDTH (BEAKER) (test 15.9 % 11.6-14.4 qwlg=035) PLATELET COUNT (BEAKER) (test pkhr=655) 137 K/CU MM 150-450 MEAN PLATELET VOLUME (BEAKER) (test hmzt=565) 11.1 fL 9.4-12.4 NUCLEATED RED BLOOD CELLS (BEAKER) (test 0 /100 WBC 0-0 kwwk=771) NEUTROPHILS RELATIVE PERCENT (BEAKER) (test 54 % oqoe=279) LYMPHOCYTES RELATIVE PERCENT (BEAKER) (test 33 % hqxm=958) MONOCYTES RELATIVE PERCENT (BEAKER) (test 8 % plht=666) EOSINOPHILS RELATIVE PERCENT (BEAKER) (test 3 % zheb=184) BASOPHILS RELATIVE PERCENT (BEAKER) (test 0 % bfwy=190) NEUTROPHILS ABSOLUTE COUNT (BEAKER) (test 6.59 K/ L 1.78-5.38 polb=032) LYMPHOCYTES ABSOLUTE COUNT (BEAKER) (test 3.96 K/ L 1.32-3.57 bgfs=802) MONOCYTES ABSOLUTE COUNT (BEAKER) (test 1.00 K/ L 0.30-0.82 nqwt=021) EOSINOPHILS ABSOLUTE COUNT (BEAKER) (test 0.30 K/ L 0.04-0.54 liky=240) BASOPHILS ABSOLUTE COUNT (BEAKER) (test 0.05 K/ L 0.01-0.08 wfcx=341) IMMATURE GRANULOCYTES-RELATIVE PERCENT (BEAKER) 2 % 0-1 (test pegd=9622) POCT-GLUCOSE [id number] 22:05:00 Test Item Value Reference Range Comments POC-GLUCOSE METER (BEAKER) 122 mg/dL 70-[address] [facility] [address] (test fhwd=5650) [facility] [address] BASIC METABOLIC [id number] 21:48:00 Test Item Value Reference Range Comments SODIUM (BEAKER) (test 135 meq/L 136-145 rrip=099) POTASSIUM (BEAKER) (test 4.2 meq/L 3.5-5.1 lzwl=418) CHLORIDE (BEAKER) (test 101 meq/L 98-107 hjfa=264) CO2 (BEAKER) (test 25 meq/L 22-29 ljyu=099) BLOOD UREA NITROGEN 27 mg/dL 7-21 (BEAKER) (test ibez=466) CREATININE (BEAKER) (test 1.09 mg/dL 0.57-1.25 jluv=732) GLUCOSE RANDOM (BEAKER) 139 mg/dL 70-105 (test llwp=979) CALCIUM (BEAKER) (test 9.5 mg/dL 8.4-10.2 fkew=303) EGFR (BEAKER) (test 64 mL/min/1.73 sq m ESTIMATED GFR IS NOT rbwm=1563) ACCURATE CREATININE CLEARANCE IN PREDICTING GLOMERULAR FILTRATION RATE. ESTIMATED GFR IS NOT APPLICABLE FOR DIALYSIS PATIENTS. CBC (HEMOGRAM ONLY)2018-05-25 21:37:00 Test Item Value Reference Range Comments WHITE BLOOD CELL COUNT (BEAKER) (test jesq=028) 17.3 K/ L 3.5-10.5 RED BLOOD CELL COUNT (BEAKER) (test oosc=314) 3.84 M/ L 4.63-6.08 HEMOGLOBIN (BEAKER) (test idxx=825) 11.0 GM/DL 13.7-17.5 HEMATOCRIT (BEAKER) (test zerg=140) 33.5 % 40.1-51.0 MEAN CORPUSCULAR VOLUME (BEAKER) (test xbcy=165) 87.2 fL 79.0-92.2 MEAN CORPUSCULAR HEMOGLOBIN (BEAKER) (test 28.6 pg 25.7-32.2 vhej=913) MEAN CORPUSCULAR HEMOGLOBIN CONC (BEAKER) (test 32.8 GM/DL 32.3-36.5 zmjn=214) RED CELL DISTRIBUTION WIDTH (BEAKER) (test 15.8 % 11.6-14.4 iigl=287) PLATELET COUNT (BEAKER) (test vhfw=557) 151 K/CU MM 150-450 MEAN PLATELET VOLUME (BEAKER) (test yojk=194) 11.6 fL 9.4-12.4 NUCLEATED RED BLOOD CELLS (BEAKER) (test 0 /100 WBC 0-0 bsqm=530) CT, BRAIN, WITHOUT [id number] 19:17:00FINAL REPORT CT head without contrast 05/25/2018 [...] Boykin Verified Date/Time: 2017 19:17:21 Reading Location: [facility] Reading Room Electronicallysigned by: MICHEAL BOYKIN M.D. on 05/25/2018 07:17 PMPOCT- GLUCOSE [id number] 17:10:00 Test Item Value Reference Range Comments POC-GLUCOSE METER (BEAKER) 186 mg/dL 70-[address] [facility] [address] [facility] (test klby=2341) [facility] [address] POCT-GLUCOSE [id number] 11:53:00 Test Item Value Reference Range Comments POC-GLUCOSE METER (BEAKER) 152 mg/dL 70-[address] [facility] [address] [facility] (test xfom=2392) [facility] [address] POCT-GLUCOSE [id number] 08:24:00 Test Item Value Reference Range Comments POC-GLUCOSE METER (BEAKER) 126 mg/dL 70-[address] [facility] [address] [facility] (test mdif=7157) [facility] [address] BASIC METABOLIC [id number] 06:46:00 Test Item Value Reference Range Comments SODIUM (BEAKER) (test 137 meq/L 136-145 mzdo=945) POTASSIUM (BEAKER) (test 3.8 meq/L 3.5-5.1 Specimen slightly yeyq=617) hemolyzed CHLORIDE (BEAKER) (test 101 meq/L 98-107 kzqo=762) CO2 (BEAKER) (test 25 meq/L 22-29 nlkd=318) BLOOD UREA NITROGEN 26 mg/dL 7-21 (BEAKER) (test atbx=441) CREATININE (BEAKER) (test 0.94 mg/dL 0.57-1.25 Specimen slightly ryjc=575) hemolyzed GLUCOSE RANDOM (BEAKER) 110 mg/dL 70-105 (test qyzl=245) CALCIUM (BEAKER) (test 9.2 mg/dL 8.4-10.2 mwaa=394) EGFR (BEAKER) (test 76 mL/min/1.73 sq m ESTIMATED GFR IS NOT petm=0955) ACCURATE CREATININE CLEARANCE IN PREDICTING GLOMERULAR FILTRATION RATE. ESTIMATED GFR IS NOT APPLICABLE FOR DIALYSIS PATIENTS. BLOOD [id number] 06:00:00 Test Item Value Reference Range Comments CULTURE (BEAKER) (test aiyf=6195) No growth in 5 days BLOOD [id number] 06:00:00 Test Item Value Reference Range Comments CULTURE (BEAKER) (test oayt=3141) No growth in 5 days [id number] 05:50:00 Test Item Value Reference Range Comments MAGNESIUM (BEAKER) (test 2.3 mg/dL 1.6-2.6 Specimen slightly hemolyzed bfna=478) PROTHROMBIN TIME/[id number] 05:44:00 Test Item Value Reference Range Comments PROTIME (BEAKER) (test zqvi=529) 13.8 seconds 11.7-14.7 INR (BEAKER) (test xood=885) 1.1 <=5.9 RECOMMENDED COUMADIN/WARFARIN INR THERAPY RANGESSTANDARD DOSE: 2.0 - 3.0 Includes: PROPHYLAXIS forvenous thrombosis, systemic embolization; TREATMENT for venous thrombosis and/or pulmonary embolus.HIGH RISK: Target INR is 2.5-3.5 for patients with mechanical heart valves.POCT-GLUCOSE [id number] 22:35:00 Test Item Value Reference Range Comments POC-GLUCOSE METER (BEAKER) 216 mg/dL 70-110 TESTED AT [address] (test aiet=4474) [facility] [address] POCT-GLUCOSE [id number] 17:10:00 Test Item Value Reference Range Comments POC-GLUCOSE METER (BEAKER) 240 mg/dL 70-110 TESTED AT [address] (test soqv=2128) [facility] [address] POCT-GLUCOSE [id number] 12:11:00 Test Item Value Reference Range Comments POC-GLUCOSE METER (BEAKER) 172 mg/dL 70-110 TESTED AT [address] (test qjuo=8703) [facility] [address] [id number] 04:19:00 Test Item Value Reference Range Comments MAGNESIUM (BEAKER) (test vucg=212) 2.2 mg/dL 1.6-2.6 BASIC METABOLIC [id number] 04:19:00 Test Item Value Reference Range Comments SODIUM (BEAKER) (test 140 meq/L 136-145 dmob=708) POTASSIUM (BEAKER) (test 3.6 meq/L 3.5-5.1 xyat=779) CHLORIDE (BEAKER) (test 105 meq/L 98-107 jcfs=329) CO2 (BEAKER) (test 28 meq/L 22-29 jurl=691) BLOOD UREA NITROGEN 33 mg/dL 7-21 (BEAKER) (test dhjb=723) CREATININE (BEAKER) (test 0.96 mg/dL 0.57-1.25 fcrj=160) GLUCOSE RANDOM (BEAKER) 128 mg/dL 70-105 (test gfys=257) CALCIUM (BEAKER) (test 9.0 mg/dL 8.4-10.2 cqoo=478) EGFR (BEAKER) (test 74 mL/min/1.73 sq m ESTIMATED GFR IS NOT zkzm=2586) ACCURATE CREATININE CLEARANCE IN PREDICTING GLOMERULAR FILTRATION RATE. ESTIMATED GFR IS NOT APPLICABLE FOR DIALYSIS PATIENTS. PROTHROMBIN [id number] 03:49:00 Test Item Value Reference Range Comments PROTIME (BEAKER) (test tcxl=305) 13.8 seconds 11.7-14.7 INR (BEAKER) (test pnzs=642) 1.1 <=5.9 RECOMMENDED COUMADIN/WARFARIN INR THERAPY RANGESSTANDARD DOSE: 2.0 - 3.0 Includes: PROPHYLAXIS forvenous thrombosis, systemic embolization; TREATMENT for venous thrombosis and/or pulmonary embolus.HIGH RISK: Target INR is 2.5-3.5 for patients with mechanical heart valves.While on warfarin.CBC (HEMOGRAM ONLY) 2018-05-24 03:43:00 Test Item Value Reference Range Comments WHITE BLOOD CELL COUNT (BEAKER) (test ooss=913) 8.8 K/ L 3.5-10.5 RED BLOOD CELL COUNT (BEAKER) (test yepe=467) 3.23 M/ L 4.63-6.08 HEMOGLOBIN (BEAKER) (test dkbe=056) 9.2 GM/DL 13.7-17.5 HEMATOCRIT (BEAKER) (test ofnc=562) 28.5 % 40.1-51.0 MEAN CORPUSCULAR VOLUME (BEAKER) (test ttwi=909) 88.2 fL 79.0-92.2 MEAN CORPUSCULAR HEMOGLOBIN (BEAKER) (test 28.5 pg 25.7-32.2 vepy=283) MEAN CORPUSCULAR HEMOGLOBIN CONC (BEAKER) (test 32.3 GM/DL 32.3-36.5 mynb=104) RED CELL DISTRIBUTION WIDTH (BEAKER) (test 15.0 % 11.6-14.4 pgyk=081) PLATELET COUNT (BEAKER) (test tkom=769) 87 K/CU MM 150-450 MEAN PLATELET VOLUME (BEAKER) (test wccr=291) 11.6 fL 9.4-12.4 NUCLEATED RED BLOOD CELLS (BEAKER) (test 0 /100 WBC 0-0 jbae=356) POCT-GLUCOSE [id number] 23:13:00 Test Item Value Reference Range Comments POC-GLUCOSE METER (BEAKER) 170 mg/dL 70-110 TESTED AT [address] (test uqqx=6493) [facility] [address] POCT-GLUCOSE [id number] 17:11:00 Test Item Value Reference Range Comments POC-GLUCOSE METER (BEAKER) 290 mg/dL 70-110 TESTED AT [address] (test jcyk=1999) [facility] [address] CT, BRAIN, WITHOUT [id number] 15:31:00Reason for exam:->Cerebral embolizationWhat is the patient's [...] Boykin Verified Date/Time: 05/23/2018 15:31:32 Reading Location: [facility] B1 C013V Neuro Reading Room POCT-GLUCOSE [id number] 12:34:00 Test Item Value Reference Range Comments POC-GLUCOSE METER (BEAKER) 204 mg/dL 70-110 TESTED AT [address] (test ngsw=0988) [facility] [address] [id number] 08:24:00 Test Item Value Reference Range Comments FERRITIN (BEAKER) (test ddus=328) 435 ng/mL 5-275 POCT-GLUCOSE [id number] 08:21:00 Test Item Value Reference Range Comments POC-GLUCOSE METER (BEAKER) 134 mg/dL 70-[address] [facility] [address] [facility] (test uphn=0892) [facility] [address] IRON, TIBC, % SAT. (WITHOUT FERRITIN)2018-05-23 07:34:00 Test Item Value Reference Range Comments IRON (BEAKER) (test vraq=958) 63 ug/dL 40-160 TOTAL IRON BINDING CAPACITY (BEAKER) (test 224 ug/dL 250-450 whae=715) IRON % SATURATION (2) (BEAKER) (test mkhp=2895) 28 % 20-55 [id number] 06:45:00 Test Item Value Reference Range Comments PARTIAL THROMBOPLASTIN TIME (BEAKER) (test 94.3 seconds 22.5-36.0 jbbo=240) [id number] 06:05:00 Test Item Value Reference Range Comments MAGNESIUM (BEAKER) (test zqtr=037) 2.3 mg/dL 1.6-2.6 BASIC METABOLIC [id number] 06:05:00 Test Item Value Reference Range Comments SODIUM (BEAKER) (test 138 meq/L 136-145 vwid=346) POTASSIUM (BEAKER) (test 3.5 meq/L 3.5-5.1 zlzn=152) CHLORIDE (BEAKER) (test 102 meq/L 98-107 yfzw=351) CO2 (BEAKER) (test 27 meq/L 22-29 bwic=293) BLOOD UREA NITROGEN 38 mg/dL 7-21 (BEAKER) (test nluk=947) CREATININE (BEAKER) (test 1.16 mg/dL 0.57-1.25 fjdg=381) GLUCOSE RANDOM (BEAKER) 118 mg/dL 70-105 (test dkls=346) CALCIUM (BEAKER) (test 8.9 mg/dL 8.4-10.2 rksx=473) EGFR (BEAKER) (test 60 mL/min/1.73 sq m ESTIMATED GFR IS NOT tbcd=0419) ACCURATE CREATININE CLEARANCE IN PREDICTING GLOMERULAR FILTRATION RATE. ESTIMATED GFR IS NOT APPLICABLE FOR DIALYSIS PATIENTS. CBC (HEMOGRAM ONLY)2018-05-23 05:55:00 Test Item Value Reference Range Comments WHITE BLOOD CELL COUNT (BEAKER) (test dbdc=643) 9.8 K/ L 3.5-10.5 RED BLOOD CELL COUNT (BEAKER) (test dkul=152) 2.77 M/ L 4.63-6.08 HEMOGLOBIN (BEAKER) (test hkqd=072) 7.7 GM/DL 13.7-17.5 HEMATOCRIT (BEAKER) (test mftv=305) 24.0 % 40.1-51.0 MEAN CORPUSCULAR VOLUME (BEAKER) (test ulqv=477) 86.6 fL 79.0-92.2 MEAN CORPUSCULAR HEMOGLOBIN (BEAKER) (test 27.8 pg 25.7-32.2 tjug=556) MEAN CORPUSCULAR HEMOGLOBIN CONC (BEAKER) (test 32.1 GM/DL 32.3-36.5 mhyy=243) RED CELL DISTRIBUTION WIDTH (BEAKER) (test 15.9 % 11.6-14.4 lcgs=275) PLATELET COUNT (BEAKER) (test bfhb=736) 74 K/CU MM 150-450 MEAN PLATELET VOLUME (BEAKER) (test dmiy=022) 11.8 fL 9.4-12.4 NUCLEATED RED BLOOD CELLS (BEAKER) (test 0 /100 WBC 0-0 ucwz=256) [id number] 23:49:00 Test Item Value Reference Range Comments PARTIAL THROMBOPLASTIN TIME (BEAKER) (test 82.0 seconds 22.5-36.0 jhhh=570) POCT-GLUCOSE [id number] 22:25:00 Test Item Value Reference Range Comments POC-GLUCOSE METER (BEAKER) 212 mg/dL 70-110 TESTED AT [address] (test hxul=1344) [place] [address] [id number] 21:32:00 Test Item Value Reference Range Comments PARTIAL THROMBOPLASTIN TIME (BEAKER) (test 131.6 seconds 22.5-36.0 dtqb=725) POCT-GLUCOSE [id number] 17:58:00 Test Item Value Reference Range Comments POC-GLUCOSE METER (BEAKER) 296 mg/dL 70-110 TESTED AT [address] (test apix=0232) [place] [address] [id number] 14:27:00 Test Item Value Reference Range Comments PARTIAL THROMBOPLASTIN TIME (BEAKER) (test 96.3 seconds 22.5-36.0 ocxk=379) URINE [id number] 12:50:00 Test Item Value Reference Range Comments CULTURE (BEAKER) (test fjzx=1220) No growth [id number] 12:49:00 Test Item Value Reference Range Comments PARTIAL THROMBOPLASTIN TIME (BEAKER) (test 150.3 seconds 22.5-36.0 obbq=577) [id number] 05:53:00 Test Item Value Reference Range Comments PARTIAL THROMBOPLASTIN TIME (BEAKER) (test 44.1 seconds 22.5-36.0 hysg=901) [id number] 03:32:00 Test Item Value Reference Range Comments PROTIME (BEAKER) (test rmwu=400) 15.0 seconds 11.7-14.7 INR (BEAKER) (test xzec=012) 1.2 <=5.9 PARTIAL THROMBOPLASTIN TIME (BEAKER) (test 179.7 seconds 22.5-36.0 crvs=089) RECOMMENDED COUMADIN/WARFARIN INR THERAPY RANGESSTANDARD DOSE: 2.0 - 3.0 Includes: PROPHYLAXIS forvenous thrombosis, systemic embolization; TREATMENT for venous thrombosis and/or pulmonary embolus.HIGH RISK: Target INR is 2.5-3.5 for patients with mechanical heart valves.[id number] 02:54:00 Test Item Value Reference Range Comments PHOSPHORUS (BEAKER) (test jinn=483) 3.6 mg/dL 2.3-4.7 [id number] 02:54:00 Test Item Value Reference Range Comments MAGNESIUM (BEAKER) (test xewh=184) 2.4 mg/dL 1.6-2.6 BASIC METABOLIC [id number] 02:54:00 Test Item Value Reference Range Comments SODIUM (BEAKER) (test 138 meq/L 136-145 ztrc=305) POTASSIUM (BEAKER) (test 3.7 meq/L 3.5-5.1 tgwe=061) CHLORIDE (BEAKER) (test 101 meq/L 98-107 ilci=116) CO2 (BEAKER) (test 27 meq/L 22-29 lvea=823) BLOOD UREA NITROGEN 44 mg/dL 7-21 (BEAKER) (test vyhe=184) CREATININE (BEAKER) (test 1.30 mg/dL 0.57-1.25 iruu=563) GLUCOSE RANDOM (BEAKER) 131 mg/dL 70-105 (test ltjg=439) CALCIUM (BEAKER) (test 8.9 mg/dL 8.4-10.2 bidk=527) EGFR (BEAKER) (test 52 mL/min/1.73 sq m ESTIMATED GFR IS NOT hfad=2025) ACCURATE CREATININE CLEARANCE IN PREDICTING GLOMERULAR FILTRATION RATE. ESTIMATED GFR IS NOT APPLICABLE FOR DIALYSIS PATIENTS. VANCOMYCIN LEVEL, [id number] 02:53:00 Test Item Value Reference Range Comments VANCOMYCIN RANDOM (BEAKER) (test sxas=020) 24.4 ug/mL Reference Range: No NormalsCALCIUM, [id number] 02:49:00 Test Item Value Reference Range Comments CALCIUM IONIZED (BEAKER) (test vdrk=403) 1.15 mmol/L 1.12-1.27 PH, BLOOD (BEAKER) (test riap=9157) 7.40 CBC (HEMOGRAM ONLY)2018-05-22 02:29:00 Test Item Value Reference Range Comments WHITE BLOOD CELL COUNT (BEAKER) (test bwhj=775) 13.9 K/ L 3.5-10.5 RED BLOOD CELL COUNT (BEAKER) (test kcjt=997) 2.94 M/ L 4.63-6.08 HEMOGLOBIN (BEAKER) (test bqly=719) 8.3 GM/DL 13.7-17.5 HEMATOCRIT (BEAKER) (test vska=211) 25.5 % 40.1-51.0 MEAN CORPUSCULAR VOLUME (BEAKER) (test pfgu=194) 86.7 fL 79.0-92.2 MEAN CORPUSCULAR HEMOGLOBIN (BEAKER) (test 28.2 pg 25.7-32.2 gqpm=277) MEAN CORPUSCULAR HEMOGLOBIN CONC (BEAKER) (test 32.5 GM/DL 32.3-36.5 fzox=349) RED CELL DISTRIBUTION WIDTH (BEAKER) (test 15.9 % 11.6-14.4 waka=646) PLATELET COUNT (BEAKER) (test qdgx=710) 67 K/CU MM 150-450 MEAN PLATELET VOLUME (BEAKER) (test ydvy=595) 11.8 fL 9.4-12.4 NUCLEATED RED BLOOD CELLS (BEAKER) (test 0 /100 WBC 0-0 dccb=367) [id number] 00:28:00 Test Item Value Reference Range Comments PROTIME (BEAKER) (test fqfo=217) 15.9 seconds 11.7-14.7 INR (BEAKER) (test chyb=468) 1.3 <=5.9 PARTIAL THROMBOPLASTIN TIME (BEAKER) (test 170.7 seconds 22.5-36.0 anhg=046) RECOMMENDED COUMADIN/WARFARIN INR THERAPY RANGESSTANDARD DOSE: 2.0 - 3.0 Includes: PROPHYLAXIS forvenous thrombosis, systemic embolization; TREATMENT for venous thrombosis and/or pulmonary embolus.HIGH RISK: Target INR is 2.5-3.5 for patients with mechanical heart valves.BASIC METABOLIC [id number] 13:37: 00 Test Item Value Reference Range Comments SODIUM (BEAKER) (test 139 meq/L 136-145 caba=135) POTASSIUM (BEAKER) (test 3.8 meq/L 3.5-5.1 aleu=300) CHLORIDE (BEAKER) (test 101 meq/L 98-107 rcbd=371) CO2 (BEAKER) (test 26 meq/L 22-29 amho=413) BLOOD UREA NITROGEN 46 mg/dL 7-21 (BEAKER) (test lybl=093) CREATININE (BEAKER) (test 1.60 mg/dL 0.57-1.25 fxpa=755) GLUCOSE RANDOM (BEAKER) 160 mg/dL 70-105 (test mmpa=579) CALCIUM (BEAKER) (test 9.1 mg/dL 8.4-10.2 wwxa=486) EGFR (BEAKER) (test 41 mL/min/1.73 sq m ESTIMATED GFR IS NOT koxx=1762) ACCURATE CREATININE CLEARANCE IN PREDICTING GLOMERULAR FILTRATION RATE. ESTIMATED GFR IS NOT APPLICABLE FOR DIALYSIS PATIENTS. MR, MRA, BRAIN, WITHOUT [id number] 12:04:00Reason for exam:-> Ischemic Stroke EvaluationFINAL REPORT MRA Head and Neck CLINICAL HISTORY: Stroke TECHNIQUE: MRA of thehead utilizing 3-D rwhp-bn-hljvvl technique, with 3-D reconstructions.MRA of the neck utilizing 2-D and 3-D time- of-flight technique, with 3-D reconstructions. COMPARISON: None FINDINGS: There is no evidence for a [place] proximal branch vessel occlusion. There [...] vertebral arteries. IMPRESSION: No evidence for a [place] proximal branchvessel occlusion. No hemodynamically significant stenosis in the internal carotid arteries. 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 Signed: Jaycob Alvarado Verified Date/Time: 05/21/2018 12:04:26 Reading Location: [address] Neuro Reading Room MR, MRA, NECK, WITHOUT IV [id number] 12:04:00Reason for exam:->Ischemic Stroke EvaluationFINAL REPORT MRA Head and Neck CLINICAL HISTORY: Stroke TECHNIQUE: MRA of thehead utilizing 3-D hagm-ly-ddxlvf technique, with 3-D reconstructions.MRA of the neck utilizing 2-D and 3-D kzmq-kr-vglblf technique, with 3-D reconstructions. COMPARISON: None FINDINGS: There is no evidence for a [place] proximal branch vessel occlusion. There [...] vertebral arteries. IMPRESSION: No evidence for a [place] proximal branchvessel occlusion. No hemodynamically significant stenosis in the internal carotid arteries. 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 Signed: Jaycob Alvarado Verified Date/Time: 05/21/2018 12:04:26 Reading Location: [address] Neuro Reading Room MR, BRAIN, WITHOUT [id number] 11:58:00Reason for exam:->Ischemic Stroke EvaluationFINAL REPORT MRI [...] Verified Date/Time: 05/21/2018 11:58:08 Reading Location: [address] Neuro Reading Room RAD, CHEST, 1 VIEW, NON [id number] 10:54:00Reason for exam:->hypoxemiaShould this be performed at [...] [place] Verified Date/Time: 05/21/2018 10:54:40 Reading Location: [facility] B1 C013X Ortho Consult Reading Room HEMOGLOBIN [id number] 08:30:00 Test Item Value Reference Range Comments HEMOGLOBIN A1C (BEAKER) (test twyi=016) 8.1 % 4.3-6.1 LIPID [id number] 07:31:00 Test Item Value Reference Range Comments TRIGLYCERIDES (BEAKER) (test iwqe=694) 348 mg/dL CHOLESTEROL (BEAKER) (test sact=783) 208 mg/dL HDL CHOLESTEROL (BEAKER) (test hnph=928) 26 mg/dL LDL CHOLESTEROL CALCULATED (BEAKER) (test 112 mg/dL uark=601) Triglyceride Reference Range: Low Risk <150 Borderline 150- 199 High Risk 200-499 Very High Risk >=500Cholesterol Reference Range: Low Risk <200 Borderline 200-239 High Risk > 240HDL Cholesterol Reference Range: Low Risk >=60 High Risk <40LDL Cholesterol Reference Range: Optimal <100 Near Optimal 100-129 Borderline 130-159 High 160-189 Very High >=[id number] 04:49:00 Test Item Value Reference Range Comments PHOSPHORUS (BEAKER) (test uzje=681) 6.4 mg/dL 2.3-4.7 [id number] 04:49:00 Test Item Value Reference Range Comments MAGNESIUM (BEAKER) (test pfjr=160) 2.3 mg/dL 1.6-2.6 BASIC METABOLIC [id number] 04:49:00 Test Item Value Reference Range Comments SODIUM (BEAKER) (test 139 meq/L 136-145 kege=171) POTASSIUM (BEAKER) (test 3.8 meq/L 3.5-5.1 oxlx=839) CHLORIDE (BEAKER) (test 102 meq/L 98-107 zyfy=643) CO2 (BEAKER) (test 23 meq/L 22-29 pfmw=620) BLOOD UREA NITROGEN 49 mg/dL 7-21 (BEAKER) (test qmqq=461) CREATININE (BEAKER) (test 1.96 mg/dL 0.57-1.25 dnvq=524) GLUCOSE RANDOM (BEAKER) 175 mg/dL 70-105 (test tysq=923) CALCIUM (BEAKER) (test 8.7 mg/dL 8.4-10.2 rcow=764) EGFR (BEAKER) (test 33 mL/min/1.73 sq m ESTIMATED GFR IS NOT kyky=0016) ACCURATE CREATININE CLEARANCE IN PREDICTING GLOMERULAR FILTRATION RATE. ESTIMATED GFR IS NOT APPLICABLE FOR DIALYSIS PATIENTS. VITAMIN [id number] 04:11:00 Test Item Value Reference Range Comments VITAMIN B12 (BEAKER) (test cham=672) 692 pg/mL 213-816 TSH/FREE T4 IF [id number] 04:11:00 Test Item Value Reference Range Comments THYROID STIMULATING HORMONE (BEAKER) (test 0.77 uIU/mL 0.35-4.94 hgan=938) CALCIUM, [id number] 03:53:00 Test Item Value Reference Range Comments CALCIUM IONIZED (BEAKER) (test yxqr=636) 1.12 mmol/L 1.12-1.27 PH, BLOOD (BEAKER) (test tffx=3879) 7.35 CBC (HEMOGRAM ONLY)2018-05-21 03:16:00 Test Item Value Reference Range Comments WHITE BLOOD CELL COUNT (BEAKER) (test xkbe=161) 16.4 K/ L 3.5-10.5 RED BLOOD CELL COUNT (BEAKER) (test mtqf=906) 3.61 M/ L 4.63-6.08 HEMOGLOBIN (BEAKER) (test qept=851) 10.1 GM/DL 13.7-17.5 HEMATOCRIT (BEAKER) (test ebwk=959) 32.2 % 40.1-51.0 MEAN CORPUSCULAR VOLUME (BEAKER) (test cbxo=579) 89.2 fL 79.0-92.2 MEAN CORPUSCULAR HEMOGLOBIN (BEAKER) (test 28.0 pg 25.7-32.2 plpa=173) MEAN CORPUSCULAR HEMOGLOBIN CONC (BEAKER) (test 31.4 GM/DL 32.3-36.5 voin=090) RED CELL DISTRIBUTION WIDTH (BEAKER) (test 16.1 % 11.6-14.4 esjd=774) PLATELET COUNT (BEAKER) (test pvnw=150) 81 K/CU MM 150-450 MEAN PLATELET VOLUME (BEAKER) (test tnqe=356) 11.0 fL 9.4-12.4 NUCLEATED RED BLOOD CELLS (BEAKER) (test 0 /100 WBC 0-0 hshq=511) EEG AWAKE AND [id number] 15:54:00Reason for exam:->AMSDate(s) of EEDATE OF REPORT: 05/20/2018ACC: [id number] Number: [id number] Location : Inpatient ICUStart time: 14:17Stop time: 14:38ICD-10: R56.9CPT Code: 60162 HISTORY: 87 y.o. RHM w/ severe who [...] Rooney MDNeurophysiology Fellow, PGY5 Betsey Tello NeurophysiologistCHI [facility] POCT- GLUCOSE [id number] 13:52:00 Test Item Value Reference Range Comments POC-GLUCOSE METER (BEAKER) 163 mg/dL 70-[address] [facility] [address] [facility] (test exgx=4028) [facility] [address] TROPONIN [id number] 11:59:00 Test Item Value Reference Range Comments TROPONIN I (BEAKER) (test ioxl=324) 1.13 ng/mL 0.00-0.03 Troponin I (TnI) levels [...] acute neurological disease, and persistent tachyarrhythmia.COMPREHENSIVE METABOLIC [id number] 11:47:00 Test Item Value Reference Range Comments TOTAL PROTEIN (BEAKER) 5.7 gm/dL 6.0-8.3 (test smgs=631) ALBUMIN (BEAKER) (test 3.4 g/dL 3.5-5.0 nvjg=6764) ALKALINE PHOSPHATASE 42 U/L 40-150 (BEAKER) (test aktx=477) BILIRUBIN TOTAL (BEAKER) 0.8 mg/dL 0.2-1.2 (test ddyu=279) SODIUM (BEAKER) (test 139 meq/L 136-145 azvf=961) POTASSIUM (BEAKER) (test 4.2 meq/L 3.5-5.1 zngi=105) CHLORIDE (BEAKER) (test 100 meq/L 98-107 sczb=971) CO2 (BEAKER) (test 23 meq/L 22-29 igrv=936) BLOOD UREA NITROGEN 38 mg/dL 7-21 (BEAKER) (test ggkr=755) CREATININE (BEAKER) (test 2.17 mg/dL 0.57-1.25 mbyu=265) GLUCOSE RANDOM (BEAKER) 129 mg/dL 70-105 (test qxfm=740) CALCIUM (BEAKER) (test 9.0 mg/dL 8.4-10.2 nkot=563) AST (SGOT) (BEAKER) (test 27 U/L 5-34 wsnf=440) ALT (SGPT) (BEAKER) (test 14 U/L 6-55 oeql=206) EGFR (BEAKER) (test 29 mL/min/1.73 sq m ESTIMATED GFR IS NOT oygc=0587) ACCURATE CREATININE CLEARANCE IN PREDICTING GLOMERULAR FILTRATION RATE. ESTIMATED GFR IS NOT APPLICABLE FOR DIALYSIS PATIENTS. CREATINE KINASE (CK), TOTAL AND [id number] 11:42:00 Test Item Value Reference Range Comments CREATINE KINASE TOTAL (BEAKER) (test cxhk=069) 138 U/L 29-200 CREATINE KINASE-MB (BEAKER) (test xocs=217) 4.2 ng/mL 0.0-6.6 CREATINE KINASE-MB INDEX (BEAKER) (test fqlu=218) 3.0 % CK-MB Reference Range:<6.7 Normal6.7-10.0 Borderline>10.0 [id number] 11:36:00 Test Item Value Reference Range Comments PHOSPHORUS (BEAKER) (test lmze=657) 5.4 mg/dL 2.3-4.7 [id number] 11:36:00 Test Item Value Reference Range Comments MAGNESIUM (BEAKER) (test vayb=626) 2.3 mg/dL 1.6-2.6 RAD, ABDOMEN/KUB, 1 VIEW [id number] 11:33:00Reason for exam:->Nasogastric tube insertionShould this be performed at the bedside?->YesFINAL REPORT Abdomen one view INDICATION: Nasogastric tube insertion COMPARISON: None available IMPRESSION: NG tube extends to the gastric body. The imaged bowel gas pattern is nonspecific. There are degenerative spine changes and incidental vascular calcifications. The imaged chest is similar to 2017. Signed: Kenan [place] Verified Date/Time: 05/20/2018 11: 33:02 Reading Location: [facility] Radiology Reading Room LACTIC ACID, VENOUS, WHOLE [id number] 11:32:00 Test Item Value Reference Range Comments LACTATE BLOOD VENOUS (2) (BEAKER) (test 2.1 mmol/L 0.5-2.2 apue=1969) Effective 04/02/2016: Units/Reference Range ChangeNew: 0.5-2.2 mmol/L Previous: 5 -20 mg/dLBLOOD GAS, [id number] 11:21:00 Test Item Value Reference Range Comments PH VENOUS (BEAKER) (test clvw=912) 7.40 7.32-7.42 PCO2 VENOUS (BEAKER) (test ukuu=724) 45 mmHg 41-51 PO2 VENOUS (BEAKER) (test iwzp=866) 26 mmHg 25-40 O2 SATURATION VENOUS (BEAKER) (test wsqi=380) 46.3 % 40.0-70.0 HCO3 VENOUS (BEAKER) (test wwht=481) 27 mmol/L 21-29 BASE EXCESS VENOUS (BEAKER) (test vvzb=264) 1.8 mmol/L -2.0-3.0 PATIENT TEMPERATURE (BEAKER) (test vris=8339) 36.9 C FIO2 (BEAKER) (test wkxj=5535) 36.0 % BASIC METABOLIC [id number] 05:05:00 Test Item Value Reference Range Comments SODIUM (BEAKER) (test 140 meq/L 136-145 cort=476) POTASSIUM (BEAKER) (test 3.9 meq/L 3.5-5.1 Specimen slightly khgk=524) hemolyzed CHLORIDE (BEAKER) (test 105 meq/L 98-107 kdun=645) CO2 (BEAKER) (test 21 meq/L 22-29 iicj=642) BLOOD UREA NITROGEN 31 mg/dL 7-21 (BEAKER) (test uxax=956) CREATININE (BEAKER) (test 1.63 mg/dL 0.57-1.25 Specimen slightly nwpn=497) hemolyzed GLUCOSE RANDOM (BEAKER) 124 mg/dL 70-105 (test qsma=207) CALCIUM (BEAKER) (test 8.0 mg/dL 8.4-10.2 quvw=973) EGFR (BEAKER) (test 40 mL/min/1.73 sq m ESTIMATED GFR IS NOT pjvc=1690) ACCURATE CREATININE CLEARANCE IN PREDICTING GLOMERULAR FILTRATION RATE. ESTIMATED GFR IS NOT APPLICABLE FOR DIALYSIS PATIENTS. CBC (HEMOGRAM ONLY)2018-05-20 04:44:00 Test Item Value Reference Range Comments WHITE BLOOD CELL COUNT (BEAKER) (test exei=547) 16.5 K/ L 3.5-10.5 RED BLOOD CELL COUNT (BEAKER) (test vswj=662) 3.86 M/ L 4.63-6.08 HEMOGLOBIN (BEAKER) (test aaks=636) 10.6 GM/DL 13.7-17.5 HEMATOCRIT (BEAKER) (test ipkw=422) 34.3 % 40.1-51.0 MEAN CORPUSCULAR VOLUME (BEAKER) (test aane=977) 88.9 fL 79.0-92.2 MEAN CORPUSCULAR HEMOGLOBIN (BEAKER) (test 27.5 pg 25.7-32.2 heki=978) MEAN CORPUSCULAR HEMOGLOBIN CONC (BEAKER) (test 30.9 GM/DL 32.3-36.5 bqog=450) RED CELL DISTRIBUTION WIDTH (BEAKER) (test 16.2 % 11.6-14.4 kurl=273) PLATELET COUNT (BEAKER) (test lgyb=325) 103 K/CU MM 150-450 MEAN PLATELET VOLUME (BEAKER) (test lzit=739) 11.2 fL 9.4-12.4 NUCLEATED RED BLOOD CELLS (BEAKER) (test 0 /100 WBC 0-0 fymq=126) URINALYSIS W/ [id number] 00:09:00 Test Item Value Reference Range Comments COLOR (BEAKER) (test cuku=132) Yellow CLARITY (BEAKER) (test idxu=241) Clear SPECIFIC GRAVITY UA (BEAKER) (test yfgk=296) 1.017 1.001-1.035 PH UA (BEAKER) (test zstr=304) 5.0 5.0-8.0 PROTEIN UA (BEAKER) (test dwet=135) Negative Negative GLUCOSE UA (BEAKER) (test rkns=324) Negative Negative KETONES UA (BEAKER) (test dkhe=688) Negative Negative BILIRUBIN UA (BEAKER) (test smgr=775) Negative Negative BLOOD UA (BEAKER) (test zorx=514) Small Negative NITRITE UA (BEAKER) (test nkfo=587) Negative Negative LEUKOCYTE ESTERASE UA (BEAKER) (test bmov=362) Negative Negative UROBILINOGEN UA (BEAKER) (test eocb=958) 0.2 mg/dL 0.2-1.0 RBC UA (BEAKER) (test umyp=480) 12 /HPF WBC UA (BEAKER) (test qvmf=341) 1 /HPF MUCUS (BEAKER) (test hyol=9706) Rare AMORPHOUS CRYSTALS (BEAKER) (test cybc=9197) Occasional SOURCE(BEAKER) (test lqxo=8708) Urine, [place] [facility], CHEST, 1 VIEW, NON [id number] 21:46:00Reason for exam:->tavrShould this be performed at the bedside?->YesFINAL REPORT INDICATION: tavr COMPARISON: None. TECHNIQUE: Chest radiograph, single view, portable technique. 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 Intact median sternotomy wires noted. No pulmonary edema, aspiration, pneumothorax, or pleural effusion demonstrated. Signed: Vladislav Michael [facility] ([place], [place]) Verified Date/Time: 05/19/2018 21:46:23 Reading Location: [address] Consult Reading Room POCT-LACTIC ACID, [id number] 21:21:00 Test Item Value Reference Range Comments POC-LACTIC ACID, ARTERIAL 1.5 mmol/L 0.4-1.3 TESTED [address] (BEAKER) (test qtxj=4494) [place] [id number] POCT-BLOOD GASES, [id number] 21:21:00 Test Item Value Reference Range Comments TEMP, CELSIUS-POC (BEAKER) 37.1 (test ovgt=1705) FIO2-POC (BEAKER) (test 29 TESTED AT [address] qscj=0080) [place] [address] PH, ARTERIAL-POC (BEAKER) 7.468 7.350-7.450 (test osgg=5393) PCO2, ARTERIAL-POC (BEAKER) 34.4 mm Hg 35.0-45.0 (test sqyy=7830) PO2, ARTERIAL-POC (BEAKER) 63.0 mm Hg 80.0-90.0 (test siyy=3516) SO2, ARTERIAL-POC (BEAKER) 93.0 % 96.0-97.0 (test esuj=8170) HCO3, ARTERIAL-POC (BEAKER) 24.9 meq/L 21.0-29.0 (test wmhh=2718) BASE EXCESS, ARTERIAL-POC 1.0 meq/L -2.0-3.0 (BEAKER) (test xsez=3964) [id number] 21:21:00 Test Item Value Reference Range Comments POC-SODIUM (BEAKER) (test 137 meq/L 135-148 TESTED AT [address] ovgm=5298) [place] [address] [id number] 21:21:00 Test Item Value Reference Range Comments POC-POTASSIUM (BEAKER) (test 3.6 meq/L 3.6-5.5 TESTED AT [address] sqfz=4217) [place] [address] [id number] 21:21:00 Test Item Value Reference Range Comments POC-GLUCOSE (BEAKER) (test 152 mg/dL 70-110 TESTED AT [address] ncuf=8151) [place] [address] POCT-CALCIUM [id number] 21:21:00 Test Item Value Reference Range Comments POC-CALCIUM IONIZED (BEAKER) 1.19 mmol/L 1.12-1.27 TESTED AT [address] (test wvgp=5123) [place] [address] [id number] 21:21:00 Test Item Value Reference Range Comments POC-HEMATOCRIT (BEAKER) (test 32 % 40-50 TESTED AT [address] loef=2244) [place] [address] [id number] 21:21:00 Test Item Value Reference Range Comments POC-HEMOGLOBIN (BEAKER) 10.9 g/dL 13.0-16.8 TESTED AT [address] (test tybi=6386) [place] [address]TESTED AT [place] [address] TROPONIN [id number] 20:56:00 Test Item Value Reference Range Comments TROPONIN I (BEAKER) (test uvdk=543) 0.73 ng/mL 0.00-0.03 Troponin I (TnI) levels [...] and persistent tachyarrhythmia.CREATINE KINASE (CK), TOTAL AND [id number] 20:49:00 Test Item Value Reference Range Comments CREATINE KINASE TOTAL (BEAKER) (test lhzf=308) 41 U/L 29-200 CREATINE KINASE-MB (BEAKER) (test vumj=527) 3.5 ng/mL 0.0-6.6 CREATINE KINASE-MB INDEX (BEAKER) (test okth=089) 8.5 % CK-MB Reference Range:<6.7 Normal6.7-10.0 Borderline>10.0 AbnormalCT, BRAIN/STROKE [id number] 20:46:00Reason for exam:-> altered mental statusFINAL REPORT [...] [place] Verified Date/Time: 05/19/2018 20:46:09 Reading Location: [facility] Radiology Reading Room [facility] METABOLIC [id number] 20: 42:00 Test Item Value Reference Range Comments SODIUM (BEAKER) (test 138 meq/L 136-145 tgww=753) POTASSIUM (BEAKER) (test 3.8 meq/L 3.5-5.1 qrhp=843) CHLORIDE (BEAKER) (test 100 meq/L 98-107 ywzh=180) CO2 (BEAKER) (test 26 meq/L 22-29 osle=726) BLOOD UREA NITROGEN 27 mg/dL 7-21 (BEAKER) (test nhwg=245) CREATININE (BEAKER) (test 1.41 mg/dL 0.57-1.25 znwl=984) GLUCOSE RANDOM (BEAKER) 146 mg/dL 70-105 (test kttl=399) CALCIUM (BEAKER) (test 8.7 mg/dL 8.4-10.2 alao=741) EGFR (BEAKER) (test 48 mL/min/1.73 sq m ESTIMATED GFR IS NOT afow=1717) ACCURATE CREATININE CLEARANCE IN PREDICTING GLOMERULAR FILTRATION RATE. ESTIMATED GFR IS NOT APPLICABLE FOR DIALYSIS PATIENTS. [id number] 20:32:00 Test Item Value Reference Range Comments PROTIME (BEAKER) (test zuth=944) 14.2 seconds 11.7-14.7 INR (BEAKER) (test qibq=100) 1.1 <=5.9 PARTIAL THROMBOPLASTIN TIME (BEAKER) (test 31.4 seconds 22.5-36.0 uzzd=100) RECOMMENDED COUMADIN/WARFARIN INR THERAPY RANGESSTANDARD DOSE: 2.0 - 3.0 Includes: PROPHYLAXIS forvenous thrombosis, systemic embolization; TREATMENT for venous thrombosis and/or pulmonary embolus.HIGH RISK: Target INR is 2.5-3.5 for patients with mechanical heart valves.CBC W/PLT COUNT & AUTO [id number] 20:30:00 Test Item Value Reference Range Comments WHITE BLOOD CELL COUNT (BEAKER) (test erme=228) 12.5 K/ L 3.5-10.5 RED BLOOD CELL COUNT (BEAKER) (test bunx=723) 3.77 M/ L 4.63-6.08 HEMOGLOBIN (BEAKER) (test efyh=743) 10.4 GM/DL 13.7-17.5 HEMATOCRIT (BEAKER) (test jvpu=772) 34.1 % 40.1-51.0 MEAN CORPUSCULAR VOLUME (BEAKER) (test lfbw=451) 90.5 fL 79.0-92.2 MEAN CORPUSCULAR HEMOGLOBIN (BEAKER) (test 27.6 pg 25.7-32.2 nxpr=469) MEAN CORPUSCULAR HEMOGLOBIN CONC (BEAKER) (test 30.5 GM/DL 32.3-36.5 ekyv=593) RED CELL DISTRIBUTION WIDTH (BEAKER) (test 16.4 % 11.6-14.4 dmiz=655) PLATELET COUNT (BEAKER) (test gkew=754) 116 K/CU MM 150-450 MEAN PLATELET VOLUME (BEAKER) (test yhbo=259) 10.6 fL 9.4-12.4 NUCLEATED RED BLOOD CELLS (BEAKER) (test 0 /100 WBC 0-0 srvc=082) NEUTROPHILS RELATIVE PERCENT (BEAKER) (test 74 % xrfj=172) LYMPHOCYTES RELATIVE PERCENT (BEAKER) (test 18 % fisb=397) MONOCYTES RELATIVE PERCENT (BEAKER) (test 6 % wuqe=266) EOSINOPHILS RELATIVE PERCENT (BEAKER) (test 1 % dbdd=758) BASOPHILS RELATIVE PERCENT (BEAKER) (test 0 % kizf=520) NEUTROPHILS ABSOLUTE COUNT (BEAKER) (test 9.27 K/ L 1.78-5.38 ppdf=400) LYMPHOCYTES ABSOLUTE COUNT (BEAKER) (test 2.24 K/ L 1.32-3.57 rpdl=361) MONOCYTES ABSOLUTE COUNT (BEAKER) (test 0.73 K/ L 0.30-0.82 qcpk=654) EOSINOPHILS ABSOLUTE COUNT (BEAKER) (test 0.13 K/ L 0.04-0.54 llkl=568) BASOPHILS ABSOLUTE COUNT (BEAKER) (test 0.03 K/ L 0.01-0.08 ojuf=893) IMMATURE GRANULOCYTES-RELATIVE PERCENT (BEAKER) 1 % 0-1 (test xxux=8633) POCT-GLUCOSE [id number] 20:01:00 Test Item Value Reference Range Comments POC-GLUCOSE METER (BEAKER) 182 mg/dL 70-[address] [facility] [address] [facility] (test cxnt=3610) [facility] [address] [id number] 09:06:00 Test Item Value Reference Range Comments ACTIVATED CLOTTING TIME [address] [facility] [address] [facility] (BEAKER) (test uvbp=575) [facility] [address] B-TYPE NATRIURETIC FACTOR (BNP)2018-04-21 15:09:00 Test Item Value Reference Range Comments B-TYPE NATRIURETIC PEPTIDE (BEAKER) (test 785 pg/mL 0-100 jixc=807) COMPREHENSIVE METABOLIC [id number] 15:02:00 Test Item Value Reference Range Comments TOTAL PROTEIN (BEAKER) 6.9 gm/dL 6.0-8.3 (test xrkd=523) ALBUMIN (BEAKER) (test 4.0 g/dL 3.5-5.0 alyx=0387) ALKALINE PHOSPHATASE 42 U/L 40-150 (BEAKER) (test emrc=357) BILIRUBIN TOTAL (BEAKER) 0.5 mg/dL 0.2-1.2 (test zoec=310) SODIUM (BEAKER) (test 135 meq/L 136-145 jqsr=753) POTASSIUM (BEAKER) (test 4.3 meq/L 3.5-5.1 ihzy=788) CHLORIDE (BEAKER) (test 99 meq/L 98-107 yccm=338) CO2 (BEAKER) (test 25 meq/L 22-29 quqv=954) BLOOD UREA NITROGEN 31 mg/dL 7-21 (BEAKER) (test wuaq=799) CREATININE (BEAKER) (test 1.39 mg/dL 0.57-1.25 tsto=642) GLUCOSE RANDOM (BEAKER) 194 mg/dL 70-105 (test kutu=890) CALCIUM (BEAKER) (test 9.7 mg/dL 8.4-10.2 bcli=935) AST (SGOT) (BEAKER) (test 12 U/L 5-34 ruus=824) ALT (SGPT) (BEAKER) (test 15 U/L 6-55 rldu=925) EGFR (BEAKER) (test 48 mL/min/1.73 sq m ESTIMATED GFR IS NOT lrra=9443) ACCURATE CREATININE CLEARANCE IN PREDICTING GLOMERULAR FILTRATION RATE. ESTIMATED GFR IS NOT APPLICABLE FOR DIALYSIS PATIENTS. PROTHROMBIN [id number] 14:58:00 Test Item Value Reference Range Comments PROTIME (BEAKER) (test jrlk=705) 12.8 seconds 11.7-14.7 INR (BEAKER) (test pcao=220) 1.0 <=5.9 RECOMMENDED COUMADIN/WARFARIN INR THERAPY RANGESSTANDARD DOSE: 2.0 - 3.0 Includes: PROPHYLAXIS forvenous thrombosis, systemic embolization; TREATMENT for venous thrombosis and/or pulmonary embolus.HIGH RISK: Target INR is 2.5-3.5 for patients with mechanical heart valves.CBC W/PLT COUNT & AUTO [id number] 14:45:00 Test Item Value Reference Range Comments WHITE BLOOD CELL COUNT (BEAKER) (test jphx=078) 10.3 K/ L 3.5-10.5 RED BLOOD CELL COUNT (BEAKER) (test wcvz=674) 4.35 M/ L 4.63-6.08 HEMOGLOBIN (BEAKER) (test mnxd=455) 11.9 GM/DL 13.7-17.5 HEMATOCRIT (BEAKER) (test skxj=885) 37.6 % 40.1-51.0 MEAN CORPUSCULAR VOLUME (BEAKER) (test vjoc=562) 86.4 fL 79.0-92.2 MEAN CORPUSCULAR HEMOGLOBIN (BEAKER) (test 27.4 pg 25.7-32.2 hpsk=812) MEAN CORPUSCULAR HEMOGLOBIN CONC (BEAKER) (test 31.6 GM/DL 32.3-36.5 yzct=858) RED CELL DISTRIBUTION WIDTH (BEAKER) (test 16.5 % 11.6-14.4 uhwf=194) PLATELET COUNT (BEAKER) (test mxpf=211) 158 K/CU MM 150-450 MEAN PLATELET VOLUME (BEAKER) (test iwoq=032) 11.1 fL 9.4-12.4 NUCLEATED RED BLOOD CELLS (BEAKER) (test 0 /100 WBC 0-0 ualf=430) NEUTROPHILS RELATIVE PERCENT (BEAKER) (test 73 % wdhb=079) LYMPHOCYTES RELATIVE PERCENT (BEAKER) (test 19 % qhwu=395) MONOCYTES RELATIVE PERCENT (BEAKER) (test 6 % jwrq=174) EOSINOPHILS RELATIVE PERCENT (BEAKER) (test 1 % bfup=851) BASOPHILS RELATIVE PERCENT (BEAKER) (test 0 % nnjv=496) NEUTROPHILS ABSOLUTE COUNT (BEAKER) (test 7.54 K/ L 1.78-5.38 atqc=034) LYMPHOCYTES ABSOLUTE COUNT (BEAKER) (test 1.96 K/ L 1.32-3.57 ydtx=092) MONOCYTES ABSOLUTE COUNT (BEAKER) (test 0.61 K/ L 0.30-0.82 fmut=375) EOSINOPHILS ABSOLUTE COUNT (BEAKER) (test 0.09 K/ L 0.04-0.54 dext=645) BASOPHILS ABSOLUTE COUNT (BEAKER) (test 0.03 K/ L 0.01-0.08 zrpn=542) IMMATURE GRANULOCYTES-RELATIVE PERCENT (BEAKER) 1 % 0-1 (test gclq=2095) CT, CTA [id number] 12:54:00Addendum BeginsREPORT STATUS:A Addendum: I agree with the previously described non vascular findings.. Additionally, the lungs demonstrate fibrotic changes which are most pronounced in the bilateral bases. Biapical pleural-parenchymal scarring is present. Signed: Dejon BlandMDReport Verified Date/Time: 04/20/2018 12:54: 28 Reading Location: [place] [address] Angio Body Reading RoomAddendum EndsFINAL REPORT CT [...] 5. An addendum will be dictated bythe [employer]ill Machine Tender Radiologist regarding the nonvascular findings. Signed: Puneet Espinoza Verified Date/Time: 14:19:03 Reading Location: [place] [address], CTA, [id number] 12:54:00Addendum BeginsREPORT STATUS:A Addendum: I agree with the previously described non vascular findings.. Additionally, the lungs demonstrate fibrotic changes which are most pronounced in the bilateral bases. Biapical pleural-parenchymal scarring is present. Signed : Dejon BlandMDReport Verified Date/Time: 04/20/2018 12:54:28 Reading Location: [place] [address] Angio Body Reading RoomAddendum EndsFINAL REPORT CT [...] 5. An addendum will be dictated bythe Quill Machine Tender Radiologist regarding the nonvascular findings. Signed: Puneet Espinoza MDReport Verified Date/Time: 14:19:03 Reading Location: [place] [address] Cardiology MRI POCT- [id number] 09:37:00 Test Item Value Reference Range Comments POC-CREATININE (BigML) 1.3 mg/dL 0.6-1.[address] [facility] [address] [place] [address] (test [id number]) [facility] [address] POC-EGFR (BigML) (test 52 mL/min/1.73M2 snai=9909)
--- NOTE | 2019-01-27 14:16 | RAD REPORT ---
EXAM DESCRIPTION: CT - Head C Spine Mpr Wo Con - 01/27/2019 2:03 pm CLINICAL HISTORY: Head and neck injury status post fall. Head and neck pain COMPARISON: None. TECHNIQUE: Computed axial tomography of the head and cervical spine was obtained. Sagittal and coronal reconstruction was performed. All CT scans are performed using dose optimization technique as appropriate and may include automated exposure control or mA/KV adjustment according to patient size. FINDINGS: Cerebral atrophy is present. An intracranial bleed is not seen. The ventricles are normal in caliber. An extra-axial fluid collect ion is not noted. Mild sinusitis A cervical fracture is not visualized. No dislocation is noted. IMPRESSION: No acute intracranial abnormality is seen. A cervical fracture is not visualized. If the patient continues to have symptoms to suggest intracra nial /spinal cord pathology then MRI would be recommended
--- NOTE | 2019-01-27 14:42 | RAD REPORT ---
EXAM DESCRIPTION: RAD - Lumbar Spine 3 Views - 01/27/2019 2:31 pm CLINICAL HISTORY: Back pain FINDINGS: The alignment of the lumbar spine is satisfactory. No fracture or dislocation is seen. 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
--- NOTE | 2019-01-27 15:26 | ER ---
Nurse's Notes [facility] Name: Victor Hugo Damon Age: 88 yrs Sex: Male : 1930 Arrival Date: 01/27/2019 Time: 13:46 Bed 14 Private MD: Diagnosis: Superficial injury of head;Low back pain Presentation: 01/27 13:40 Presenting complaint: EMS states: Pt. is 88 yr. old, A \T\ O x 3, pt. was trying to go rb1 from his wheelchair to his bed and fell and hit his head. NO LOC. Pt. does take blood thinners. Has a skin tear on left elbow that happened today, and also has skin tears on the right arm that are from a couple days ago. Has chronic back pain x 3 months. BP 143/69, P 72, T 98.2, BS 289 had just eaten breakfast. Pt. came from [facility]. Care prior to arrival: None. Mechanism of Injury: Fall wheelchair. Trauma event details: Injury occurred in the [facility], Injury occurred: at home. Injury occurred: January 27, 2019 Injury occurred at: 13:00. 13:40 Acuity: ESTHELA 2 rb1 13:40 Method Of Arrival: EMS: [facility] rb1 13:40 Transition of care: Abhay Chirinos. Onset of symptoms was January 27, 2019. Risk rb1 Assessment: Do you want to hurt yourself or someone else? Patient reports no desire to harm self or others. Initial Sepsis Screen: Does the patient meet any 2 criteria? No. Patient's initial sepsis screen is negative. Does the patient have a suspected source of infection? No. Patient's initial sepsis screen is negative. Trauma Activation: Physician: ED Physician; Name: Phoenix; Notified At: 13:42; Arrived At: 13:42 Physician: General Surgeon; Name: ; Notified At: 13:42; Arrived At: Physician: Radiology; Name: Chuck; Notified At: 13:42; Arrived At: 13:35 Physician: Respiratory; Name: ; Notified At: 13:42; Arrived At: Physician: Lab; Name: ; Notified At: 13:42; Arrived At: Historical: - Allergies: 13:40 PENICILLINS; rb1 - Home Meds: 13:40 acetaminophen 325 mg Oral tab 2 tabs every 4 hours for Pain [Active]; amlodipine 5 mg rb1 tab 1 tab once daily [Active]; aspirin 81 mg Oral TbEC 1 tab once daily [Active]; bisacodyl 5 mg Oral TbEC 1 tab once daily [Active]; carvedilol 25 mg Oral tab 1 tab 2 times per day [Active]; clopidogrel 75 mg Oral tab 1 tab once daily [Active]; losartan 50 mg Oral tab 1 tab once daily [Active]; melatonin 3 mg Oral tab nightly [Active]; Myrbetriq 25 mg Oral Tb24 1 tab once daily [Active]; Myrbetriq 25 mg Oral Tb24 1 tab once daily [Active]; nifedipine 30 mg Oral TbER 2 tabs once daily [Active]; Nifedipine ER Oral 30 mg twice a day [Active]; potassium chloride 10 mEq Oral cpER 1 cap once daily [Active]; prednisone 20 mg Oral tab 1 tab once daily [Active]; torsemide 20 mg Oral tab 1 tab once daily [Active]; torsemide 10 mg Oral tab 1 tab once daily [Active]; warfarin 5 mg Oral tab 1 tab once daily [Active]; - PMHx: 13:40 Atrial Fib; CAD; CVA; Diabetes - NIDDM; Hypertension; rb1 - PSHx: 13:40 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 - Social history:: Smoking status: Patient/guardian denies using tobacco. - Immunization history: Last tetanus immunization: - up to date. - Ebola Screening: : Patient negative for fever greater than or equal to 101.5 degrees Fahrenheit, and additional compatible Ebola Virus Disease symptoms. Screenin:40 Abuse screen: Denies threats or abuse. Tuberculosis screening: No symptoms or risk rb1 factors identified. 13:40 Nutritional screening: No deficits noted. rb1 13:40 Fall Risk Fall in past 12 months (25 points). Secondary diagnosis (15 points) impaired rb1 mobility, No IV (0 pts). Ambulatory Aid- Crutches/Cane/Walker (15 pts). Gait- Impaired (20 pts.). Mental Status- Oriented to own ability (0 pts). Total Handy Fall Scale indicates High Risk Score (45 or more points). Fall prevention measures have been instituted. Side Rails Up X 2 Placed Close to Nursing Station 1:1 Attendant Assigned Frequent Obs/Assessments Occuring As available patient and family educated on Fall Prevention Program and Strategies. Primary Survey: 13:40 NO uncontrolled hemorrhage observed. Breathing/Chest: Respiratory pattern: regular, rb1 Respiratory effort: spontaneous, unlabored, Breath sounds: clear, bilaterally. Chest inspection: symmetrical rise and fall of the chest. Circulation: Pulses: palpable right radial artery and left radial artery. Skin color: pink, Skin temperature: warm. Disability Alert. Exposure/Environment: There is no evidence of uncontrolled external bleeding. 14:00 Reassessment Airway Airway Breathing/Chest Respiratory pattern Regular Respiratory rb1 effort Spontaneous Unlabored Circulation Color [place] Temperature Warm. Secondary Survey: 13:40 HEENT: No deficits noted. Gastrointestinal: No deficits noted. Musculoskeletal: Range rb1 of motion: intact in all extremities. Assessment: 13:40 General: Appears in no apparent distress. comfortable, Behavior is calm, cooperative, rb1 Denies fever. Pain: Complains of pain in back Pain currently is 5 out of 10 on a pain scale. Pain began chronic. Neuro: Level of Consciousness is awake, alert, obeys commands, Oriented to person, place, time, situation. Cardiovascular: Capillary refill < 3 seconds is brisk in bilateral fingers. Respiratory: Airway is patent Respiratory effort is even, unlabored, Respiratory pattern is regular, symmetrical. Derm: Wound noted left elbow Wound is skin tear from fall. Musculoskeletal: Range of motion: intact in all extremities. Injury Description:. 13:40 GI: No signs and/or symptoms were reported involving the gastrointestinal system. : rb1 No signs and/or symptoms were reported regarding the genitourinary system. 14:30 Reassessment: Patient appears in no apparent distress at this time. No changes from rb1 previously documented assessment. 15:24 Reassessment: Patient appears in no apparent distress at this time. Patient and/or rb1 family updated on plan of care and expected duration. Pain level reassessed. Patient is alert, oriented x 3, equal unlabored respirations, skin warm/dry/pink. 16:24 Reassessment: Patient appears in no apparent distress at this time. No changes from rb1 previously documented assessment. 16:50 Reassessment: Spoke to Sarah at [facility] and updated her on pt. condition. The [facility] will send someone to transport the pt. back to the facility. 17:20 Reassessment: Patient appears in no apparent distress at this time. Patient and/or rb1 family updated on plan of care and expected duration. Pain level reassessed. Patient is alert, oriented x 3, equal unlabored respirations, skin warm/dry/pink. Vital Signs: 13:40 BP 132 / 67; Pulse 75; Resp 14; Temp 98.7(O); Pulse Ox 98% on R/A; Weight 86.18 kg (R); rb1 Height 6 ft. 0 in. (182.88 cm) (R); Pain 5/10; 14:41 BP 147 / 54; Pulse 68; Resp 18; Temp 98.4(O); Pulse Ox 100% on R/A; mh5 15:26 BP 152 / 62; Pulse 69; Resp 17; Pulse Ox 99% on R/A; rb1 16:26 BP 153 / 67; Pulse 75; Resp 16; Pulse Ox 100% on R/A; rb1 17:15 BP 152 / 61; Pulse 66; Resp 18; Pulse Ox 98% on R/A; rb1 13:40 Body Mass Index 25.77 (86.18 kg, 182.88 cm) rb1 Mikael Coma Score: 13:40 Eye Response: spontaneous(4). Verbal Response: oriented(5). Motor Response: obeys rb1 commands(6). Total: 15. 13:45 Eye Response: spontaneous(4). Verbal Response: oriented(5). Motor Response: obeys rb1 commands(6). Total: 15. 14:00 Eye Response: spontaneous(4). Verbal Response: oriented(5). Motor Response: obeys rb1 commands(6). Total: 15. 14:15 Eye Response: spontaneous(4). Verbal Response: oriented(5). Motor Response: obeys rb1 commands(6). Total: 15. 14:30 Eye Response: spontaneous(4). Verbal Response: oriented(5). Motor Response: obeys rb1 commands(6). Total: 15. 14:45 Eye Response: spontaneous(4). Verbal Response: oriented(5). Motor Response: obeys rb1 commands(6). Total: 15. 15:00 Eye Response: spontaneous(4). Verbal Response: oriented(5). Motor Response: obeys rb1 commands(6). Total: 15. 15:15 Eye Response: spontaneous(4). Verbal Response: oriented(5). Motor Response: obeys rb1 commands(6). Total: 15. 15:30 Eye Response: spontaneous(4). Verbal Response: oriented(5). Motor Response: obeys rb1 commands(6). Total: 15. 15:45 Eye Response: spontaneous(4). Verbal Response: oriented(5). Motor Response: obeys rb1 commands(6). Total: 15. 16:00 Eye Response: spontaneous(4). Verbal Response: oriented(5). Motor Response: obeys rb1 commands(6). Total: 15. 16:15 Eye Response: spontaneous(4). Verbal Response: oriented(5). Motor Response: obeys rb1 commands(6). Total: 15. 16:30 Eye Response: spontaneous(4). Verbal Response: oriented(5). Motor Response: obeys rb1 commands(6). Total: 15. 16:45 Eye Response: spontaneous(4). Verbal Response: oriented(5). Motor Response: obeys rb1 commands(6). Total: 15. 17:00 Eye Response: spontaneous(4). Verbal Response: oriented(5). Motor Response: obeys rb1 commands(6). Total: 15. 17:15 Eye Response: spontaneous(4). Verbal Response: oriented(5). Motor Response: obeys rb1 commands(6). Total: 15. 17:30 Eye Response: spontaneous(4). Verbal Response: oriented(5). Motor Response: obeys rb1 commands(6). Total: 15. Trauma Score (Adult): 13:40 Eye Response: spontaneous(1); Verbal Response: oriented(1); Motor Response: obeys rb1 commands(2); Systolic BP: > 89 mm Hg(4); Respiratory Rate: 10 to 29 per min(4); Mikael Score: 15; Trauma Score: 12 13:45 Eye Response: spontaneous(1); Verbal Response: oriented(1); Motor Response: obeys rb1 commands(2); Systolic BP: > 89 mm Hg(4); Respiratory Rate: 10 to 29 per min(4); Eastham Score: 15; Trauma Score: 12 14:00 Eye Response: spontaneous(1); Verbal Response: oriented(1); Motor Response: obeys rb1 commands(2); Systolic BP: > 89 mm Hg(4); Respiratory Rate: 10 to 29 per min(4); Eastham Score: 15; Trauma Score: 12 14:15 Eye Response: spontaneous(1); Verbal Response: oriented(1); Motor Response: obeys rb1 commands(2); Systolic BP: > 89 mm Hg(4); Respiratory Rate: 10 to 29 per min(4); Mikael Score: 15; Trauma Score: 12 14:30 Eye Response: spontaneous(1); Verbal Response: oriented(1); Motor Response: obeys rb1 commands(2); Systolic BP: > 89 mm Hg(4); Respiratory Rate: 10 to 29 per min(4); Mikael Score: 15; Trauma Score: 12 14:45 Eye Response: spontaneous(1); Verbal Response: oriented(1); Motor Response: obeys rb1 commands(2); Systolic BP: > 89 mm Hg(4); Respiratory Rate: 10 to 29 per min(4); Eastham Score: 15; Trauma Score: 12 15:00 Eye Response: spontaneous(1); Verbal Response: oriented(1); Motor Response: obeys rb1 commands(2); Systolic BP: > 89 mm Hg(4); Respiratory Rate: 10 to 29 per min(4); Eastham Score: 15; Trauma Score: 12 15:15 Eye Response: spontaneous(1); Verbal Response: oriented(1); Motor Response: obeys rb1 commands(2); Systolic BP: > 89 mm Hg(4); Respiratory Rate: 10 to 29 per min(4); Eastham Score: 15; Trauma Score: 12 15:30 Eye Response: spontaneous(1); Verbal Response: oriented(1); Motor Response: obeys rb1 commands(2); Systolic BP: > 89 mm Hg(4); Respiratory Rate: 10 to 29 per min(4); Eastham Score: 15; Trauma Score: 12 15:45 Eye Response: spontaneous(1); Verbal Response: oriented(1); Motor Response: obeys rb1 commands(2); Systolic BP: > 89 mm Hg(4); Respiratory Rate: 10 to 29 per min(4); Eastham Score: 15; Trauma Score: 12 16:00 Eye Response: spontaneous(1); Verbal Response: oriented(1); Motor Response: obeys rb1 commands(2); Systolic BP: > 89 mm Hg(4); Respiratory Rate: 10 to 29 per min(4); Eastham Score: 15; Trauma Score: 12 16:15 Eye Response: spontaneous(1); Verbal Response: oriented(1); Motor Response: obeys rb1 commands(2); Systolic BP: > 89 mm Hg(4); Respiratory Rate: 10 to 29 per min(4); Eastham Score: 15; Trauma Score: 12 16:30 Eye Response: spontaneous(1); Verbal Response: oriented(1); Motor Response: obeys rb1 commands(2); Systolic BP: > 89 mm Hg(4); Respiratory Rate: 10 to 29 per min(4); Mikael Score: 15; Trauma Score: 12 16:45 Eye Response: spontaneous(1); Verbal Response: oriented(1); Motor Response: obeys rb1 commands(2); Systolic BP: > 89 mm Hg(4); Respiratory Rate: 10 to 29 per min(4); Eastham Score: 15; Trauma Score: 12 17:00 Eye Response: spontaneous(1); Verbal Response: oriented(1); Motor Response: obeys rb1 commands(2); Systolic BP: > 89 mm Hg(4); Respiratory Rate: 10 to 29 per min(4); Eastham Score: 15; Trauma Score: 12 17:15 Eye Response: spontaneous(1); Verbal Response: oriented(1); Motor Response: obeys rb1 commands(2); Systolic BP: > 89 mm Hg(4); Respiratory Rate: 10 to 29 per min(4); Mikael Score: 15; Trauma Score: 12 17:30 Eye Response: spontaneous(1); Verbal Response: oriented(1); Motor Response: obeys rb1 commands(2); Systolic BP: > 89 mm Hg(4); Respiratory Rate: 10 to 29 per min(4); Mikael Score: 15; Trauma Score: 12 ED Course: 13:40 Patient has correct armband on for positive identification. Bed in low position. Call rb1 light in reach. Side rails up X2. 13:40 Arm band placed on right wrist. 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 Pulse ox on. NIBP on. Warm blanket given. rb1 13:40 Patient maintains SpO2 saturation greater than 95% on room air. rb1 13:40 Thermoregulation: warm blanket given to patient. rb1 13:46 Patient arrived in ED. rb1 13:51 Sy Solis PA is PHCP. [facility] 13:51 Munir Garibay MD is Attending Physician. jmm 13:55 Triage completed. rb1 14:04 CT Head C Spine In Process Unspecified. EDMS 14:31 Lumbar Spine (3 Views) XRAY In Process Unspecified. EDMS 15:21 Criss Elizalde, RN is Primary Nurse. rb1 17:35 No provider procedures requiring assistance completed. Patient did not have IV access rb1 during this emergency room visit. Administered Medications: No medications were administered Output: 17:30 Urine: 275ml (Voided); Total: 275ml. rb1 17:30 Urine: 255ml (Voided); Total: 530ml. rb1 Outcome: 15:25 Discharge ordered by MD. [facility] 17:35 Patient left the ED. rb1 17:35 Discharged to [facility]. rb1 17:35 Condition: stable 17:35 Patient's length of stay in the Emergency Department was greater than 2 hours. Waiting for test results and transportationPatient's length of stay extended due to 17:35 Discharge instructions given to patient, Instructed on discharge instructions, follow rb1 up and referral plans. Demonstrated understanding of instructions, follow-up care, Prescriptions given X none Signatures: Dispatcher [employer] EDRI Sy Solis PA PA [facility] Criss Elizalde, RN RN rb1 Ruba Mariee [facility] Corrections: (The following items were deleted from the chart) 19:41 17:49 Patient left the ED. rb1 rb1
--- NOTE | 2019-01-27 15:26 | EDPHYS ---
Physician Documentation [facility] Name: Victor Hugo Damon Age: 88 yrs Sex: Male : 1930 Arrival Date: 01/27/2019 Time: 13:46 Bed 14 Private MD: ED Physician Munir Garibay HPI: 01/27 13:54 This 88 yrs old Male presents to ER via EMS with complaints of Fall Injury. heriberto 13:54 Onset: The symptoms/episode began/occurred acutely. Associated injuries: The patient heriberto sustained injury to the head. This is an 88 year old male with a history of atrial fib, CAD, DM, HTN, that presents to the ED with low back pain following a fall which occurred just prior to arrival. Patient states he fell while transitioning from a high chair to his bed. Patient hit head without LOC. Patient complains of ongoing low back pain for the past 3 months. Patient states his back pain has been worse previously. Historical: - Allergies: 13:40 PENICILLINS; rb1 - Home Meds: 13:40 acetaminophen 325 mg Oral tab 2 tabs every 4 hours for Pain [Active]; amlodipine 5 mg rb1 tab 1 tab once daily [Active]; aspirin 81 mg Oral TbEC 1 tab once daily [Active]; bisacodyl 5 mg Oral TbEC 1 tab once daily [Active]; carvedilol 25 mg Oral tab 1 tab 2 times per day [Active]; clopidogrel 75 mg Oral tab 1 tab once daily [Active]; losartan 50 mg Oral tab 1 tab once daily [Active]; melatonin 3 mg Oral tab nightly [Active]; Myrbetriq 25 mg Oral Tb24 1 tab once daily [Active]; Myrbetriq 25 mg Oral Tb24 1 tab once daily [Active]; nifedipine 30 mg Oral TbER 2 tabs once daily [Active]; Nifedipine ER Oral 30 mg twice a day [Active]; potassium chloride 10 mEq Oral cpER 1 cap once daily [Active]; prednisone 20 mg Oral tab 1 tab once daily [Active]; torsemide 20 mg Oral tab 1 tab once daily [Active]; torsemide 10 mg Oral tab 1 tab once daily [Active]; warfarin 5 mg Oral tab 1 tab once daily [Active]; - PMHx: 13:40 Atrial Fib; CAD; CVA; Diabetes - NIDDM; Hypertension; rb1 - PSHx: 13:40 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 - Social history:: Smoking status: Patient/guardian denies using tobacco. - Immunization history: Last tetanus immunization: - up to date. - Ebola Screening: : Patient negative for fever greater than or equal to 101.5 degrees Fahrenheit, and additional compatible Ebola Virus Disease symptoms. ROS: 13:54 Constitutional: Negative for fever, chills, and weight loss, Cardiovascular: Negative jmm for chest pain, palpitations, and edema, Respiratory: Negative for shortness of breath, cough, wheezing, and pleuritic chest pain. 13:54 Back: Positive for pain with movement. 13:54 All other systems are negative. Exam: 13:54 Constitutional: This is a well developed, well nourished patient who is awake, alert, jmm and in no acute distress. 13:54 Eyes: EOMI, no conjunctival erythema appreciated ENT: Moist Mucus Membranes Neck: Trachea midline, Supple Chest/axilla: Normal chest wall appearance and motion. Cardiovascular: Regular rate and rhythm. No edema appreciated Respiratory: Normal respirations, no respiratory distress appreciated Abdomen/GI: Non distended, soft 13:54 Head/face: Exam is negative for parr signs, raccoon eyes. 13:54 Cardiovascular: Rate: normal, Rhythm: regular. 13:54 Respiratory: the patient does not display signs of respiratory distress, Respirations: normal, Breath sounds: are clear throughout. 13:54 Abdomen/GI: Inspection: abdomen appears normal, Bowel sounds: normal, Palpation: abdomen is soft and non-tender, in all quadrants. 13:54 Back: vertebral tenderness, is appreciated at L1 and L2. 13:54 Musculoskeletal/extremity: ROM: intact in all extremities. 13:54 Neuro: Orientation: is normal, Mentation: is normal, Memory: is normal. 13:54 Psych: Behavior/mood is pleasant, cooperative. Vital Signs: 13:40 BP 132 / 67; Pulse 75; Resp 14; Temp 98.7(O); Pulse Ox 98% on R/A; Weight 86.18 kg (R); rb1 Height 6 ft. 0 in. (182.88 cm) (R); Pain 5/10; 14:41 BP 147 / 54; Pulse 68; Resp 18; Temp 98.4(O); Pulse Ox 100% on R/A; mh5 15:26 BP 152 / 62; Pulse 69; Resp 17; Pulse Ox 99% on R/A; rb1 16:26 BP 153 / 67; Pulse 75; Resp 16; Pulse Ox 100% on R/A; rb1 17:15 BP 152 / 61; Pulse 66; Resp 18; Pulse Ox 98% on R/A; rb1 13:40 Body Mass Index 25.77 (86.18 kg, 182.88 cm) rb1 Morris Coma Score: 13:40 Eye Response: spontaneous(4). Verbal Response: oriented(5). Motor Response: obeys rb1 commands(6). Total: 15. 13:45 Eye Response: spontaneous(4). Verbal Response: oriented(5). Motor Response: obeys rb1 commands(6). Total: 15. 14:00 Eye Response: spontaneous(4). Verbal Response: oriented(5). Motor Response: obeys rb1 commands(6). Total: 15. 14:15 Eye Response: spontaneous(4). Verbal Response: oriented(5). Motor Response: obeys rb1 commands(6). Total: 15. 14:30 Eye Response: spontaneous(4). Verbal Response: oriented(5). Motor Response: obeys rb1 commands(6). Total: 15. 14:45 Eye Response: spontaneous(4). Verbal Response: oriented(5). Motor Response: obeys rb1 commands(6). Total: 15. 15:00 Eye Response: spontaneous(4). Verbal Response: oriented(5). Motor Response: obeys rb1 commands(6). Total: 15. 15:15 Eye Response: spontaneous(4). Verbal Response: oriented(5). Motor Response: obeys rb1 commands(6). Total: 15. 15:30 Eye Response: spontaneous(4). Verbal Response: oriented(5). Motor Response: obeys rb1 commands(6). Total: 15. 15:45 Eye Response: spontaneous(4). Verbal Response: oriented(5). Motor Response: obeys rb1 commands(6). Total: 15. 16:00 Eye Response: spontaneous(4). Verbal Response: oriented(5). Motor Response: obeys rb1 commands(6). Total: 15. 16:15 Eye Response: spontaneous(4). Verbal Response: oriented(5). Motor Response: obeys rb1 commands(6). Total: 15. 16:30 Eye Response: spontaneous(4). Verbal Response: oriented(5). Motor Response: obeys rb1 commands(6). Total: 15. 16:45 Eye Response: spontaneous(4). Verbal Response: oriented(5). Motor Response: obeys rb1 commands(6). Total: 15. 17:00 Eye Response: spontaneous(4). Verbal Response: oriented(5). Motor Response: obeys rb1 commands(6). Total: 15. 17:15 Eye Response: spontaneous(4). Verbal Response: oriented(5). Motor Response: obeys rb1 commands(6). Total: 15. 17:30 Eye Response: spontaneous(4). Verbal Response: oriented(5). Motor Response: obeys rb1 commands(6). Total: 15. Trauma Score (Adult): 13:40 Eye Response: spontaneous(1); Verbal Response: oriented(1); Motor Response: obeys rb1 commands(2); Systolic BP: > 89 mm Hg(4); Respiratory Rate: 10 to 29 per min(4); Mikael Score: 15; Trauma Score: 12 13:45 Eye Response: spontaneous(1); Verbal Response: oriented(1); Motor Response: obeys rb1 commands(2); Systolic BP: > 89 mm Hg(4); Respiratory Rate: 10 to 29 per min(4); Morris Score: 15; Trauma Score: 12 14:00 Eye Response: spontaneous(1); Verbal Response: oriented(1); Motor Response: obeys rb1 commands(2); Systolic BP: > 89 mm Hg(4); Respiratory Rate: 10 to 29 per min(4); Morris Score: 15; Trauma Score: 12 14:15 Eye Response: spontaneous(1); Verbal Response: oriented(1); Motor Response: obeys rb1 commands(2); Systolic BP: > 89 mm Hg(4); Respiratory Rate: 10 to 29 per min(4); Morris Score: 15; Trauma Score: 12 14:30 Eye Response: spontaneous(1); Verbal Response: oriented(1); Motor Response: obeys rb1 commands(2); Systolic BP: > 89 mm Hg(4); Respiratory Rate: 10 to 29 per min(4); Morris Score: 15; Trauma Score: 12 14:45 Eye Response: spontaneous(1); Verbal Response: oriented(1); Motor Response: obeys rb1 commands(2); Systolic BP: > 89 mm Hg(4); Respiratory Rate: 10 to 29 per min(4); Morris Score: 15; Trauma Score: 12 15:00 Eye Response: spontaneous(1); Verbal Response: oriented(1); Motor Response: obeys rb1 commands(2); Systolic BP: > 89 mm Hg(4); Respiratory Rate: 10 to 29 per min(4); Morris Score: 15; Trauma Score: 12 15:15 Eye Response: spontaneous(1); Verbal Response: oriented(1); Motor Response: obeys rb1 commands(2); Systolic BP: > 89 mm Hg(4); Respiratory Rate: 10 to 29 per min(4); Mikael Score: 15; Trauma Score: 12 15:30 Eye Response: spontaneous(1); Verbal Response: oriented(1); Motor Response: obeys rb1 commands(2); Systolic BP: > 89 mm Hg(4); Respiratory Rate: 10 to 29 per min(4); Morris Score: 15; Trauma Score: 12 15:45 Eye Response: spontaneous(1); Verbal Response: oriented(1); Motor Response: obeys rb1 commands(2); Systolic BP: > 89 mm Hg(4); Respiratory Rate: 10 to 29 per min(4); Mikael Score: 15; Trauma Score: 12 16:00 Eye Response: spontaneous(1); Verbal Response: oriented(1); Motor Response: obeys rb1 commands(2); Systolic BP: > 89 mm Hg(4); Respiratory Rate: 10 to 29 per min(4); Morris Score: 15; Trauma Score: 12 16:15 Eye Response: spontaneous(1); Verbal Response: oriented(1); Motor Response: obeys rb1 commands(2); Systolic BP: > 89 mm Hg(4); Respiratory Rate: 10 to 29 per min(4); Morris Score: 15; Trauma Score: 12 16:30 Eye Response: spontaneous(1); Verbal Response: oriented(1); Motor Response: obeys rb1 commands(2); Systolic BP: > 89 mm Hg(4); Respiratory Rate: 10 to 29 per min(4); Mikael Score: 15; Trauma Score: 12 16:45 Eye Response: spontaneous(1); Verbal Response: oriented(1); Motor Response: obeys rb1 commands(2); Systolic BP: > 89 mm Hg(4); Respiratory Rate: 10 to 29 per min(4); Mikael Score: 15; Trauma Score: 12 17:00 Eye Response: spontaneous(1); Verbal Response: oriented(1); Motor Response: obeys rb1 commands(2); Systolic BP: > 89 mm Hg(4); Respiratory Rate: 10 to 29 per min(4); Mikael Score: 15; Trauma Score: 12 17:15 Eye Response: spontaneous(1); Verbal Response: oriented(1); Motor Response: obeys rb1 commands(2); Systolic BP: > 89 mm Hg(4); Respiratory Rate: 10 to 29 per min(4); Morris Score: 15; Trauma Score: 12 17:30 Eye Response: spontaneous(1); Verbal Response: oriented(1); Motor Response: obeys rb1 commands(2); Systolic BP: > 89 mm Hg(4); Respiratory Rate: 10 to 29 per min(4); Mikael Score: 15; Trauma Score: 12 MDM: 13:54 Patient medically screened. [facility] 15:24 Data reviewed: vital signs, nurses notes. Counseling: I had a detailed discussion with heriberto the patient and/or guardian regarding: the historical points, exam findings, and any diagnostic results supporting the discharge/admit diagnosis, radiology results, the need for outpatient follow up, to return to the emergency department if symptoms worsen or persist or if there are any questions or concerns that arise at home. ED course: CT and plain films negative for an acute process. Patient is advised to follow up with his PCP for further evaluation of his back pain. The fall appears mechanical. Patient is given strict return precautions. patient understood and agrees with the plan of care. . 01/27 13:52 Order name: CT Head C Spine; Complete Time: 14:36 mohini 01/27 13:54 Order name: Lumbar Spine (3 Views) XRAY; Complete Time: 14:43 [facility] Administered Medications: No medications were administered Disposition: 01/27/19 15:25 Discharged to Home. Impression: Superficial injury of head, Low back pain. - Condition is Stable. - Discharge Instructions: Back Pain, Adult, Head Injury, Adult. - Medication Reconciliation Form, Thank You Letter, Antibiotic Education, Prescription Opioid Use, SBAR form form. - Follow up: Private Physician; When: 1 - 2 days; Reason: Recheck today's complaints, Continuance of care, Re-evaluation by your physician. Addendum: 01/28/2019 19:00 Co-signature as Attending Physician, Munir Garibay MD I agree with the assessment and k dr plan of care. Signatures: Dispatcher [employer] EDMS Munir Garibay MD MD [facility] Solis PA PA jmm Barber, Rebecca, RN RN rb1 Corrections: (The following items were deleted from the chart) 01/27 17:49 15:25 01/27/2019 15:25 Discharged to Home. Impression: Superficial injury of head; Low rb1 back pain. Condition is Stable. Forms are Medication Reconciliation Form, Thank You Letter, Antibiotic Education, Prescription Opioid Use. Follow up: Private Physician; When: 1 - 2 days; Reason: Recheck today's complaints, Continuance of care, Re-evaluation by your physician. bob
[2019-01-27 18:57] VITALS: TEMP 98.4
[2019-01-27 19:00] VITALS: BP 152/61; O2SAT 98
== END 2019-01-27 17:49 | disposition home or self-care (01) ==
LOC: ER 13:39
DX: M54.5 Low back pain (principal); W17.89XA Other fall from one level to another, initial encounter; Y93.89 Activity, other specified; Y92.9 Unspecified place or not applicable; Z88.0 Allergy status to penicillin; Z79.01 Long term (current) use of anticoagulants; Z79.82 Long term (current) use of aspirin; Z86.73 Personal history of transient ischemic attack (TIA), and cerebral infarction without residual deficits; E11.9 Type 2 diabetes mellitus without complications; I10 Essential (primary) hypertension; I48.91 Unspecified atrial fibrillation
CPT/HCPCS: 70450; 72100; 72125; 99285

== ENCOUNTER 2019-03-19 12:07 | Emergency (ER) | payer OTHER ==
--- OUTSIDE RECORDS SUMMARY | 2019-03-19 12:12 | XMS REPORT | Clinical Summary ---
:1930 Author Organization [facility] Address [address] [place] [address] Care Team Providers Name Role Phone Pcp, [...] 05/19/2018 Surgery Cristobal Moreno TAVR / [facility] - MD Nelson PROC ONLY 05/19/2018 Anesthesia Event Johnson Peralta MD 05/19/2018 - Hospital Encounter Cardiology Cristobal Moreno Advanced age; 05/30/2018 MD Nelson Severe aortic stenosis 05/19/2018 Orders Only General Internal Medicine 04/21/2018 Hospital Encounter Cristobal Moreno MD 04/21/2018 Office Visit Cardiology Joseph Tsai Hyperlipidemia, unspecified hyperlipidemia type; MD Barrett PVD (peripheral vascular disease) ([facility]); Stage 2 chronic kidney disease 04/19/2018 Office Visit Cardiology Cipriano, Severe aortic stenosis; Sudhir Claire, Coronary artery disease involving [place] coronary artery of [place] heart without angina pectoris; Essential hypertension; Carotid artery disease, unspecified laterality ([facility]) 04/19/2018 Hospital Encounter Radiology Cristobal Moreno Aortic valve stenosisNelson MD etiology of cardiac valve disease unspecified 04/19/2018 Hospital Encounter Radiology Cristobal Moreno Aortic valve stenosisNelson MD etiology of cardiac valve disease unspecified 04/15/2018 Outside Orders Central Scheduling Cristobal Moreno Aortic valve stenosisNelson MD etiology of cardiac valve disease unspecified (Primary Dx) after 03/18/2018 Family History Medical History Relation Name Comments [...] INFLUENZA VACCINE 08/30/2018 Implants Implanted Type Area Junior Loan Processor Device Shelf Model / Identifier Expiration Date Serial / Lot Valve Heart Pay[place] 3 26mm [id number] - [id number] Valves PASTRANA [employer] [id number] / Implanted: Qty: 1 on 05/19/2018 by Cristobal Moreno MD [id number] / Procedures Procedure Name Priority Date/Time Associated [...] 394 ms QTC Calculation(Bazett) 454 ms P Kim 23 degrees R Kim 29 degrees T Kim 194 degrees Sinus rhythm with marked sinus [...] STAT 05/20/2018 11:05 AM CDT LACTIC ACID, VENOUS STAT 05/20/2018 11:05 AM CDT PHOSPHORUS STAT 05/20/2018 11:05 AM CDT MAGNESIUM [...] 388 ms QTC Calculation(Bazett) 450 ms P Kim 52 degrees R Kim 28 degrees T Kim 136 degrees Normal sinus rhythm with sinus [...] 376 ms QTC Calculation(Bazett) 444 ms P Kim 56 degrees R Kim 23 degrees T Kim 138 degrees Sinus rhythm with Premature atrial [...] 380 ms QTC Calculation(Bazett) 452 ms R Kim 188 degrees T Kim 33 degrees Normal sinus rhythm with sinus [...] TAVR (CV ANES) DEVANTE Special Needs SCOT [phone]/[facility] TRANSFUSION SERVICE 04/22/2018 5:42 PM REPORT - [...] procedure are in the results section. after 03/18/2018 Results RHYTHM STRIP - SCAN (06/01/2018 8:10 AM CDT) Narrative Performed At POC-Glucose meter (05/30/2018 8:21 AM CDT)Only the most recent of32 resultswithin the time period is included. POC-Glucose Meter 112 (H)Comment: TESTED AT 70 - 110 mg/dL [address] [id number] Specimen Blood Performing Organization Address [facility] [place] [address] [phone] [place] Prothrombin time/INR (05/30/2018 4:31 AM CDT)Only the most recent of8 resultswithin the time period is included. Protime 22.3 (H) 11.7 - 14.7 seconds [facility] INR 2.0 <=5.9 [facility] Specimen Blood Narrative Performed At [facility] RECOMMENDED COUMADIN/WARFARIN INR THERAPY RANGES STANDARD DOSE: 2.0 - 3.0 Includes: PROPHYLAXIS for venous thrombosis, systemic embolization; TREATMENT for venous thrombosis and/or pulmonary embolus. HIGH RISK: Target INR is 2.5-3.5 for patients with mechanical heart valves. Performing Organization Address [facility] Phone Number [address] [address] [phone] [place] CBC (Hemogram only) (05/30/2018 4:31 AM CDT)Only the most recent of8 resultswithin the time period is included. WBC 10.0 3.5 - 10.5 K/L [facility] RBC 3.44 (L) 4.63 - 6.08 M/L [facility] Hemoglobin 9.6 (L) 13.7 - 17.5 GM/DL [facility] Hematocrit 30.8 (L) 40.1 - 51.0 % [facility] MCV 89.5 79.0 - 92.2 fL [facility] MCH 27.9 25.7 - 32.2 pg [facility] MCHC 31.2 (L) 32.3 - 36.5 GM/DL [facility] RDW 16.1 (H) 11.6 - 14.4 % [facility] Platelets 169 150 - 450 K/CU MM [facility] MPV 11.5 9.4 - 12.4 fL [facility] nRBC 0 0 - 0 /100 WBC [facility] Specimen Blood Performing Organization Address City/State/Zipcode Phone Number [facility] [address] [place] [address] CENTER Basic Metabolic Panel (05/30/2018 4:31 AM CDT)Only the most recent of11 resultswithin the time period is included. Sodium 136 136 - 145 meq/L [facility] Potassium 3.7 3.5 - 5.1 meq/L [facility] Chloride 101 98 - 107 meq/L [facility] CO2 26 22 - 29 meq/L [facility] BUN 28 (H) 7 - 21 mg/dL [facility] Creatinine 1.31 (H) 0.57 - 1.25 mg/dL [facility] Glucose 74 70 - 105 mg/dL [facility] Calcium 8.9 8.4 - 10.2 mg/dL [facility] EGFR 52Comment: ESTIMATED GFR IS mL/min/1.73 sq m [facility] NOT ACCURATE [facility] CLEARANCE IN PREDICTING GLOMERULAR FILTRATION RATE. ESTIMATED GFR IS NOT APPLICABLE FOR DIALYSIS PATIENTS. Specimen Blood Performing Organization Address City/State/Zipcode Phone Number [facility] [address] [place] [address] CENTER Magnesium (05/28/2018 5:53 AM CDT)Only the most recent of9 resultswithin the time period is included. Magnesium 2.3 1.6 - 2.6 mg/dL [facility] Specimen Blood Performing Organization Address City/State/Zipcode Phone Number [place] [phone] [place] [address] [place] Transfuse Leuko-Red RBC (05/26/2018 1:11 PM CDT)Only the most recent of2 resultswithin the time period is included.CBC with platelet count + automated diff (05/26/2018 6:27 AM CDT)Only the most recent of3 resultswithin the time period is included. WBC 12.2 (H) 3.5 - 10.5 K/L [facility] RBC 3.70 (L) 4.63 - 6.08 M/L [facility] Hemoglobin 10.6 (L) 13.7 - 17.5 GM/DL [facility] Hematocrit 33.2 (L) 40.1 - 51.0 % [facility] MCV 89.7 79.0 - 92.2 fL [facility] MCH 28.6 25.7 - 32.2 pg [facility] MCHC 31.9 (L) 32.3 - 36.5 GM/DL [facility] RDW 15.9 (H) 11.6 - 14.4 % [facility] Platelets 137 (L) 150 - 450 K/CU MM [facility] MPV 11.1 9.4 - 12.4 fL [facility] nRBC 0 0 - 0 /100 WBC [facility] % Neutros 54 % [facility] % Lymphs 33 % [facility] % Monos 8 % [facility] % Eos 3 % [facility] % Baso 0 % [facility] # Neutros 6.59 (H) 1.78 - 5.38 K/L [facility] # Lymphs 3.96 (H) 1.32 - 3.57 K/L [facility] # Monos 1.00 (H) 0.30 - 0.82 K/L [facility] # Eos 0.30 0.04 - 0.54 K/L [facility] # Baso 0.05 0.01 - 0.08 K/L [facility] Immature Granulocytes-Relative 2 (H) 0 - 1 % [facility] Specimen Blood Performing Organization Address City/State/Zipcode Phone Number [facility] [address] [place] [address] brain without IV contrast (05/25/2018 7:04 PM CDT)Only the most recent of2 resultswithin the time period is included. Specimen Narrative Performed At FINAL REPORT [facility] CT head without contrast 05/25/2018 [...] MD Report Verified Date/Time:05/25/2018 19:17:21 Reading Location: [facility] Radiology Reading Room Procedure Note Interface, [...] Report Verified Date/Time: 05/25/2018 19:17:21 Reading Location: [facility] Radiology Reading Room Performing Organization Address City/State/Zipcode Phone Number [facility] TRANSFUSION SERVICE REPORT - SCAN (05/25/2018 6:00 PM CDT)Only the most recent of4 resultswithin the time period is included. Narrative Performed At Prepare Leuko-Red RBC (05/24/2018 11:54 PM CDT) CROSSMATCH COMPATIBLE [place]AF[place] Unit ABO O Pos [facility] [place] UNIT NUMBER [id number] [place] Status TRANSFUSED [facility] [place] Blood Bank Product RED BLOOD CELLS [place] PRODUCT CODE [id number] [place] Specimen Other Performing Organization Address City/[facility] Phone Number [place] Type and screen, automated (05/23/2018 11:30 AM CDT)Only the most recent of2 resultswithin the time period is included. ABO/RH AUTOMATED (BEAKER) O POSITIVE [facility] Ab Scrn NEGATIVE [facility] Specimen Blood Performing Organization Address [facility] Phone Number [address] [address] [phone] aPTT (05/23/2018 6:15 AM CDT)Only the most recent of6 resultswithin the time period is included. PTT 94.3 (H) 22.5 - 36.0 seconds [facility] Specimen Blood Performing Organization Address [facility] Phone Number [address] [address] [phone] CENTER Iron, TIBC, % sat. (without ferritin) (05/23/2018 5:25 AM CDT) Iron 63 40 - 160 ug/dL [facility] TIBC 224 (L) 250 - 450 ug/dL [facility] Iron % Saturation 28 20 - 55 % [facility] Specimen Blood Performing Organization Address [facility] Phone Number [address] [address] CENTER Ferritin (05/23/2018 5:25 AM CDT) Ferritin 435 (H) 5 - 275 ng/mL [facility] Specimen Blood Performing Organization Address City/[facility] Phone Number [address] [place] [address] CENTER ECG 12 lead (05/22/2018 1:56 PM CDT)Only the most recent of4 resultswithin the time period is included. Specimen Narrative Performed At Ventricular Rate 80 BPM GE MUSE Atrial Rate 80 BPM P-R Interval 164 ms QRS Duration 100 ms Q-T Interval 394 ms QTC Calculation(Bazett) 454 ms P Kim 23 degrees R Kim 29 degrees T Kim 194 degrees Sinus rhythm with marked sinus [...] 394 ms QTC Calculation(Bazett) 454 ms P Kim 23 degrees R Kim 29 degrees T Kim 194 degrees Sinus rhythm with marked sinus arrhythmia ST & T wave abnormality, consider inferolateral ischemia Abnormal ECG When compared with ECG of 20-MAY-2018 06:03, ST no longer depressed in Lateral leads T wave inversion now evident in Inferior leads T wave inversion now evident in Anterior leads Confirmed by MD TERESA, SHANE ([id number]) on 05/22/2018 2:20:53 PM Performing Organization Address City/State/Zipcode Phone Number GE MUSE PT/aPTT (05/22/2018 2:19 AM CDT)Only the most recent of3 resultswithin the time period is included. Protime 15.0 (H) 11.7 - 14.7 seconds [facility] INR 1.2 <=5.9 [facility] PTT 179.7 (HH) 22.5 - 36.0 seconds [facility] Specimen Blood Narrative Performed At [facility] RECOMMENDED COUMADIN/WARFARIN INR THERAPY RANGES STANDARD DOSE: 2.0 - 3.0 Includes: PROPHYLAXIS for venous thrombosis, systemic embolization; TREATMENT for venous thrombosis and/or pulmonary embolus. HIGH RISK: Target INR is 2.5-3.5 for patients with mechanical heart valves. Performing Organization Address City/State/Zipcode Phone Number [address] [address] [phone] CENTER Calcium, Ionized (05/22/2018 2:19 AM CDT)Only the most recent of2 resultswithin the time period is included. Calcium, Ion 1.15 1.12 - 1.27 mmol/L [facility] pH, Blood 7.40 [facility] Specimen Blood Performing Organization Address [facility] Phone Number [address] [address] CENTER Phosphorus (05/22/2018 2:19 AM CDT)Only the most recent of3 resultswithin the time period is included. Phosphorus 3.6 2.3 - 4.7 mg/dL [facility] Specimen Blood Performing Organization Address [facility] Phone Number [address] [address] CENTER Vancomycin level, random (05/22/2018 2:19 AM CDT) Vancomycin Rm 24.4 ug/mL [facility] Specimen Blood Narrative Performed At [facility] Reference Range: No Normals Performing Organization Address [facility] Phone Number [address] [address] CENTER MR brain without IV contrast (05/21/2018 11:53 AM CDT) Specimen Narrative Performed At FINAL REPORT [employer] MRI Brain without contrast Clinical History: Stroke [...] MD Report Verified Date/Time:05/21/2018 11:58:08 Reading Location: [address] Neuro Reading Room Procedure Note Interface, [...] Report Verified Date/Time: 05/21/2018 11:58:08 Reading Location: [address] Neuro Reading Room Performing Organization Address City/State/Zipcode Phone Number [employer] RIS MRA neck without IV contrast (05/21/2018 11:53 AM CDT) Specimen Narrative Performed At FINAL REPORT [employer] [facility] MRA Head and Neck CLINICAL HISTORY: Stroke TECHNIQUE: MRA of the head utilizing 3-D welu-pk-cegwaq technique, with 3-D reconstructions. MRA of the neck utilizing 2-D and 3-D cltn-ph-fnabmc technique, with 3-D reconstructions. COMPARISON: None FINDINGS: There is no evidence for a [place] proximal branch vessel occlusion. There [...] vertebral arteries. IMPRESSION: No evidence for a [place] proximal branch vessel occlusion. No hemodynamically significant stenosis in the internal carotid arteries. 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 Signed: Jaycob Alvarado MD Report Verified Date/Time:05/21/2018 12:04:26 Reading Location: [address] Neuro Reading Room Procedure Note Interface, External Ris In - 05/21/2018 12:06 PM CDT FINAL REPORT MRA Head and Neck CLINICAL HISTORY: Stroke TECHNIQUE: MRA of the head utilizing 3-D pfnj-wr-pdmnme technique, with 3-D reconstructions. MRA of the neck utilizing 2-D and 3-D aifj-yq-eanxay technique, with 3-D reconstructions. COMPARISON: None FINDINGS: There is no evidence for a [place] proximal branch vessel occlusion. There [...] vertebral arteries. IMPRESSION: No evidence for a [place] proximal branch vessel occlusion. No hemodynamically significant stenosis in the internal carotid arteries. 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 Signed: Jaycob Alvarado MD Report Verified Date/Time: 05/21/2018 12:04:26 Reading Location: [address] Neuro Reading Room Performing Organization Address City/State/Zipcode Phone Number [employer] MRA head without IV contrast (05/21/2018 11:53 AM CDT) Specimen Narrative Performed At FINAL REPORT [employer] MRA Head and Neck CLINICAL HISTORY: Stroke TECHNIQUE: MRA of the head utilizing 3-D xiyn-rx-uawxmg technique, with 3-D reconstructions. MRA of the neck utilizing 2-D and 3-D doyu-gu-iwscwz technique, with 3-D reconstructions. COMPARISON: None FINDINGS: There is no evidence for a [place] proximal branch vessel occlusion. There [...] vertebral arteries. IMPRESSION: No evidence for a [place] proximal branch vessel occlusion. No hemodynamically significant stenosis in the internal carotid arteries. 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 Signed: Jaycob Alvarado MD Report Verified Date/Time:05/21/2018 12:04:26 Reading Location: [address] Neuro Reading Room Procedure Note Interface, External Ris In - 05/21/2018 12:06 PM CDT FINAL REPORT MRA Head and Neck CLINICAL HISTORY: Stroke TECHNIQUE: MRA of the head utilizing 3-D hmua-xb-rrmncq technique, with 3-D reconstructions. MRA of the neck utilizing 2-D and 3-D yzbi-rc-bimdaj technique, with 3-D reconstructions. COMPARISON: None FINDINGS: There is no evidence for a [place] proximal branch vessel occlusion. There [...] vertebral arteries. IMPRESSION: No evidence for a [place] proximal branch vessel occlusion. No hemodynamically significant stenosis in the internal carotid arteries. 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 Signed: Jaycob Alvarado MD Report Verified Date/Time: 05/21/2018 12:04:26 Reading Location: [facility] C013V Neuro Reading Room Performing Organization Address City/State/Zipcode Phone Number [employer] XR chest 1 view portable / bedside (05/21/2018 7:27 AM CDT)Only the most recent of2 resultswithin the time period is included. Specimen Narrative Performed At FINAL REPORT [employer] Portable chest CLINICAL HISTORY: Hypoxemia. COMPARISON STUDY: May 19, 2018. FINDINGS: The cardiac silhouette is unremarkable. The patient is status post sternotomy and valve replacement. There are increased interstitial markings with atelectatic changes in the lung bases and costophrenic angle blunting. No pneumothorax is noted. Degenerative changes are seen. IMPRESSION: No significant change. Signed: Addy Zapata MD Report Verified Date/Time:05/21/2018 10:54:40 Reading Location: [facility] C013X Ortho Consult Reading Room Procedure [...] are seen. IMPRESSION: No significant change. Signed: Adyd Zapata MD Report Verified Date/Time: 05/21/2018 10:54:40 Reading Location: [facility] B1 C013X Ortho Consult Reading Room Performing Organization Address City/[facility] Phone Number [facility] TSH/Free T4 If Indicated (05/21/2018 2:59 AM CDT) TSH 0.77 0.35 - 4.94 uIU/mL [facility] Specimen Blood Performing Organization Address [facility] Phone Number [address] [address] [phone] [place] Hemoglobin A1c (05/21/2018 2:59 AM CDT) Hemoglobin A1C 8.1 (H) 4.3 - 6.1 % [facility] Specimen Blood Performing Organization Address [facility] Phone Number [address] [address] [place] Vitamin B12 (05/21/2018 2:59 AM CDT) Vitamin B12 692 213 - 816 pg/mL [facility] Specimen Blood Performing Organization Address [facility] Phone Number [address] [address] [phone] [place] Lipid panel (05/21/2018 2:59 AM CDT) Triglycerides 348 mg/dL [facility] Cholesterol 208 mg/dL [facility] HDL 26 mg/dL [facility] LDL Calculated 112 mg/dL [facility] Specimen Blood Narrative Performed At [facility] Triglyceride Reference Range: Low Risk <150 [id number] High Risk 200-499 Very High Risk>=500 Cholesterol Reference Range: Low Risk <200 [id number] High Risk>240 HDL Cholesterol Reference Range: Low Risk >=60 High Risk <40 LDL Cholesterol Reference Range: Optimal<100 Near [id number] Very High >=190 Performing Organization Address City/State/Zipcode Phone Number [facility] [address] [place] [address] CENTER ECHOCARDIOGRAM REPORT - SCAN (05/20/2018 6:50 PM CDT) Narrative Performed At CARDIAC CATH REPORT - SCAN (05/20/2018 3:41 PM CDT) Narrative Performed At EEG AWAKE AND DROWSY (05/20/2018 2:38 PM CDT) Specimen Narrative Performed At Date(s) of EE05/20/2018 GE RIS DATE OF REPORT: 05/20/2018 ACC: [id number] EEG Number: [id number] Test Location: Inpatient ICU Start time: 14:17 Stop time: 14:38 ICD-10: R56.9 CPT Code: 26891 HISTORY: 87 y.o. RHM w/ severe who [...] Fellow, PGY5 Linette Choe MD Attending Neurophysiologist [facility] Procedure Note Interface, External Ris In - 05/20/2018 3:54 PM CDT Date(s) of EE05/20/2018 DATE OF REPORT: 05/20/2018 ACC: [id number] EEG Number: [id number] Test Location: Inpatient ICU Start time: 14:17 Stop time: 14:38 ICD-10: R56.9 CPT Code: 80834 HISTORY: 87 y.o. RHM w/ severe who [...] Fellow, PGY5 Linette Choe MD Attending Neurophysiologist [facility] Performing Organization Address City/[facility]/Zipcode Phone Number [employer] XR abdomen / KUB 1 view (05/20/2018 11:22 AM CDT) Specimen Narrative Performed At FINAL REPORT [employer] Abdomen one view INDICATION: Nasogastric tube insertion COMPARISON: None available IMPRESSION: NG tube extends to the gastric body. The imaged bowel gas pattern is nonspecific. There are degenerative spine changes and incidental vascular calcifications. The imaged chest is similar to 05/19/2018. Signed: Virgil Kraft MD Report Verified Date/Time:05/20/2018 11:33:02 Reading Location: [facility] Radiology Reading Room Procedure Note Interface, [...] Report Verified Date/Time: 05/20/2018 11:33:02 Reading Location: [facility] Radiology Reading Room Performing Organization Address [facility] Phone Number GE RIS Troponin I (05/20/2018 11:05 AM CDT)Only the most recent of2 resultswithin the time period is included. Troponin I 1.13 (HH) 0.00 - 0.03 ng/mL [facility] Specimen Blood Narrative Performed At [facility] Troponin I (TnI) levels must be [...] disease, and persistent tachyarrhythmia. Performing Organization Address City/[facility] Phone Number [address] [address] [place] Lactic acid, venous, whole blood (05/20/2018 11:05 AM CDT) Lactate, Venous 2.1 0.5 - 2.2 mmol/L [facility] Specimen Blood Narrative Performed At [facility] Effective 04/02/2016: Units/Reference Range Change New: 0.5-2.2 mmol/LPrevious: 5-20 mg/dL Performing Organization Address [facility] Phone Number [address] [address] [phone] [place] Blood gas, venous (05/20/2018 11:05 AM CDT) pH, Phil 7.40 7.32 - 7.42 [facility] pCO2, Phil 45 41 - 51 mmHg [facility] pO2, Phil 26 25 - 40 mmHg [facility] O2 Sat, Phil 46.3 40.0 - 70.0 % [facility] HCO3, Phil 27 21 - 29 mmol/L [facility] Base Excess, Phil 1.8 -2.0 - 3.0 mmol/L [facility] Patient Temperature 36.9 C [facility] FIO2 36.0 % [facility] Specimen Blood Performing Organization Address City/State/Zipcode Phone Number [facility] [address] [place] [address] [phone] [place] Creatine Kinase (CK), Total and MB (05/20/2018 11:05 AM CDT)Only the most recent of2 resultswithin the time period is included. Total CK 138 29 - 200 U/L [facility] CK-MB 4.2 0.0 - 6.6 ng/mL [facility] MB Relative Index 3.0 % [facility] Specimen Blood Narrative Performed At CK-MB Reference Range: [facility] <6.7Normal 6.7-10.0Borderline >10.0 Abnormal Performing Organization Address City/[facility] Phone Number [address] [address] [place] Comprehensive metabolic panel (05/20/2018 11:05 AM CDT)Only the most recent of2 resultswithin the time period is included. Protein, Total 5.7 (L) 6.0 - 8.3 gm/dL [facility] Albumin 3.4 (L) 3.5 - 5.0 g/dL [facility] Alkaline Phosphatase 42 40 - 150 U/L [facility] Total Bilirubin 0.8 0.2 - 1.2 mg/dL [facility] Sodium 139 136 - 145 meq/L [facility] Potassium 4.2 3.5 - 5.1 meq/L [facility] Chloride 100 98 - 107 meq/L [facility] CO2 23 22 - 29 meq/L [facility] BUN 38 (H) 7 - 21 mg/dL [facility] Creatinine 2.17 (H) 0.57 - 1.25 mg/dL [facility] Glucose 129 (H) 70 - 105 mg/dL [facility] Calcium 9.0 8.4 - 10.2 mg/dL [facility] AST 27 5 - 34 U/L [facility] ALT 14 6 - 55 U/L [facility] EGFR 29Comment: ESTIMATED GFR mL/min/1.[address] [facility] IS NOT ACCURATE [facility] CREATININE CLEARANCE IN PREDICTING GLOMERULAR FILTRATION RATE. ESTIMATED GFR IS NOT APPLICABLE FOR DIALYSIS PATIENTS. Specimen Blood Performing Organization Address City/State/Zipcode Phone Number [facility] [address] [place] [address] [phone] [facility] ECHOCARDIOGRAM REPORT - SCAN (05/20/2018 9:50 AM CDT) Narrative Performed At 2D Echo W/Doppler(CW/PW/Color) (05/20/2018 9:24 AM CDT) Ejection Fraction 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 [employer] Jamari Matute [facility] AnalystAlex Joaquin Bejarano Physician Procedure Type of [...] Study 05/20/2018 [facility] Gender Male Visit Number [id number] Race Room Number 8A11 Number Date of 1930 Referring Physician Cristobal Moreno MD 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 87 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) 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 [employer] Jamari Matute [facility] Financing Analyst Saen Nuñez Interpreting Andrews Bejarano, Physician Procedure Type [...] 22.17 cm Performing Organization Address [facility] Phone Number [facility] Urinalysis w/Microscopic (05/19/2018 11:32 PM CDT) Color, UA Yellow [facility] Clarity, UA Clear [facility] Specific [place], UA 1.017 1.001 - 1.035 [facility] pH, UA 5.0 5.0 - 8.0 [facility] Protein, UA Negative Negative [facility] Glucose, UA Negative Negative [facility] Ketones, UA Negative Negative [facility] Bilirubin, UA Negative Negative [facility] Blood, UA Small (A) Negative [facility] Nitrite, UA Negative Negative [facility] Leukocytes, UA Negative Negative [facility] Urobilinogen, UA 0.2 0.2 - 1.0 mg/dL [facility] RBC, UA 12 /HPF [facility] WBC, UA 1 /HPF [facility] Mucus Rare [facility] Amorphous Crystals Occasional [facility] Specimen Source Urine, Corral [facility] Specimen Urine Performing Organization Address City/[facility]/Zipcode Phone Number [facility] [address] [place] [address] [phone] CENTER Urine culture (05/19/2018 11:31 PM CDT) Result No growth [facility] Specimen Urine Performing Organization Address [facility] Phone Number [address] [address] CENTER Blood culture (05/19/2018 11:23 PM CDT)Only the most recent of2 resultswithin the time period is included. Result No growth in 5 days [facility] Specimen Blood Performing Organization Address [facility]/Zipcode Phone Number [address] [address] [phone] [facility] POC-Lactic Acid, Arterial (05/19/2018 9:17 PM CDT) POC-Lactic Acid, 1.5 (H)Comment: 0.4 - 1.3 mmol/L [facility] Arterial TESTED AT [address] [address] Specimen Blood Performing Organization Address [facility] Phone Number [address] [address] [phone] [place] POCT-HEMATOCRIT (05/19/2018 9:07 PM CDT) POC-Hematocrit 32 (L)Comment: TESTED AT 40 - 50 % [address] [address] Specimen Blood Performing Organization Address [facility] Phone Number [address] [address] [phone] [place] POCT-HEMOGLOBIN (05/19/2018 9:07 PM CDT) POC-Hemoglobin 10.9 (L)Comment: TESTED AT 13.0 - 16.8 g/dL [address] [address] AT [address] [address] Specimen Blood Performing Organization Address [facility] Phone Number [address] [address] [place] POCT-GLUCOSE (05/19/2018 9:07 PM CDT) POC-Glucose 152 (H)Comment: TESTED AT 70 - 110 mg/dL [address] [address] Specimen Blood Performing Organization Address [facility] Phone Number [address] [phone] [place] POC-Sodium (05/19/2018 9:07 PM CDT) POC-Sodium 137Comment: TESTED AT [facility] 135 - 148 meq/L [address] [address] Specimen Blood Performing Organization Address [facility] Phone Number [address] [phone] [place] POC-Potassium (05/19/2018 9:07 PM CDT) POC-Potassium 3.6Comment: TESTED AT [facility] 3.6 - 5.5 meq/L [address] [address] Specimen Blood Performing Organization Address [facility] Phone Number [address] [phone] [place] POC-Calcium ionized (05/19/2018 9:07 PM CDT) POC-Calcium Ionized 1.19Comment: TESTED AT 1.12 - 1.27 mmol/L [address] [address] Specimen Blood Performing Organization Address [facility] Phone Number [address] [address] [place] POC-Blood gases, arterial (05/19/2018 9:07 PM CDT) Temp. Celsius-POC 37.1 [facility] FIO2-POC 29Comment: TESTED AT [address] [address] pH, Arterial-POC 7.468 (H) 7.350 - 7.450 [facility] PCO2, Arterial-POC 34.4 (L) 35.0 - 45.0 mm Hg [facility] PO2, Arterial-POC 63.0 (L) 80.0 - 90.0 mm Hg [facility] SO2, Arterial-POC 93.0 (L) 96.0 - 97.0 % [facility] HCO3, Arterilal-POC 24.9 21.0 - 29.0 meq/L [facility] BE, Arterial-POC 1.0 -2.0 - 3.0 meq/L [facility] Specimen Blood Performing Organization Address City/State/Zipcode Phone Number [facility] [address] [place], [place] [address] [phone] [address] brain/stroke test design (05/19/2018 8:42 PM CDT) Specimen Narrative Performed At FINAL REPORT [employer] CT head without contrast 05/19/2018 8:43 PM [...] MD Report Verified Date/Time:05/19/2018 20:46:09 Reading Location: [facility] Radiology Reading Room Procedure Note Interface, [...] Report Verified Date/Time: 05/19/2018 20:46:09 Reading Location: [facility] Radiology Reading Room Performing Organization Address City/State/Zipcode Phone Number RIS Prepare RBC (05/19/2018 10:47 AM CDT) CROSSMATCH COMPATIBLE SAFETRACE TX Unit ABO O Pos SAFETRACE TX UNIT NUMBER [id number] SAFETRACE TX Status RETURNED FROM ISSUE SAFETRACE TX Blood Bank Product RED BLOOD CELLS SAFETRACE TX PRODUCT CODE [id number] SAFETRACE TX CROSSMATCH COMPATIBLE SAFETRACE TX Unit ABO O Pos SAFETRACE TX UNIT NUMBER [id number] SAFETRACE TX Status RETURNED FROM ISSUE SAFETRACE TX Blood Bank Product RED BLOOD CELLS SAFETRACE TX PRODUCT CODE [id number] SAFETRACE TX CROSSMATCH COMPATIBLE SAFETRACE TX Unit ABO O Pos SAFETRACE TX UNIT NUMBER [id number] SAFETRACE TX Status RETURNED FROM ISSUE SAFETRACE TX Blood Bank Product RED BLOOD CELLS SAFETRACE TX PRODUCT CODE [id number] SAFETRACE TX CROSSMATCH COMPATIBLE SAFETRACE TX Unit ABO O Pos SAFETRACE TX UNIT NUMBER [id number] SAFETRACE TX Status RETURNED FROM ISSUE SAFETRACE TX Blood Bank Product RED BLOOD CELLS SAFETRACE TX PRODUCT CODE [id number] SAFETRACE TX Performing Organization Address [facility] Phone Number SAFETRACE TX POC ACTIVATED CLOTTING TIME (05/19/2018 8:59 AM CDT) Activated Clotting Time 329Comment: TESTED AT [address] [address] Specimen Blood Performing Organization Address [facility] Phone Number [address] [address] CENTER 2D Echo W/Doppler(CW/PW/Color) (05/19/2018 7:51 AM CDT) Ejection Fraction [facility] Specimen Narrative Performed At Transthoracic Echocardiography Report (TTE) [facility] Demographics Patient Name Catherine SEXTON of Study 05/19/2018 [facility] [id number] GenderMale Visit Number [id number] Room Number 8A11 Number Date of Birth1930Referring Physician Cristobal Moreno MD 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 Performing Organization Address City/State/Zipcode Phone Number [facility] CPACS B-type Natriuretic Factor (BNP) (04/21/2018 1:51 PM CDT) BNP 785 (H) 0 - 100 pg/mL [facility] Specimen Blood Performing Organization Address City/[facility]/Zipcode Phone Number [facility] [address] [place] [address] CENTER CTA chest (04/19/2018 10:17 AM CDT) Specimen Narrative Performed At Addendum Begins [employer] [facility] REPORT STATUS:A Addendum: I agree with the previously described non vascular findings.. Additionally, the lungs demonstrate fibrotic changes which are most pronounced in the bilateral bases. Biapical pleural-parenchymal scarring is present. Signed: Dejon Bland MD Report Verified Date/Time:04/20/2018 12:54:28 Reading Location: [facility] P048 Angio Body Reading Room Addendum [...] measures 7.3 and 7.9 mm, respectively with lezm-wp-olgjavrinkgijhbrpp and nocalcific atherosclerosis present. The minimum and [...] 5.An addendum will be dictated by the Morphologist Radiologist regarding the nonvascular findings. Signed: Puneet Espinoza MD Report Verified Date/Time:04/19/2018 14:19:03 Reading Location: [place] [id number] Cardiology MRI Procedure Note Interface, External Ris In - 04/20/2018 12:56 PM CDT Addendum Begins REPORT STATUS:A Addendum: I agree with the previously described non vascular findings.. Additionally, the lungs demonstrate fibrotic changes which are most pronounced in the bilateral bases. Biapical pleural-parenchymal scarring is present. Signed: Dejon Bland MD Report Verified Date/Time: 04/20/2018 12:54:28 Reading Location: [facility] P048 Angio Body Reading Room Addendum [...] measures 7.3 and 7.9 mm, respectively with axef-if-tmerdyib tortuosity and no calcific atherosclerosis present. The [...] An addendum will be dictated by the Morphologist Radiologist regarding the nonvascular findings. Signed: Puneet Espinoza MD Report Verified Date/Time: 04/19/2018 14:19:03 Reading Location: [facility] P047 Cardiology MRI Performing Organization Address City/State/Zipcode Phone Number [employer] CTA abdomen & pelvis (04/19/2018 10:17 AM CDT) Specimen Narrative Performed At Addendum Begins [employer] REPORT STATUS:A Addendum: I agree with the previously described non vascular findings.. Additionally, the lungs demonstrate fibrotic changes which are most pronounced in the bilateral bases. Biapical pleural-parenchymal scarring is present. Signed: Dejon Bland MD Report Verified Date/Time:04/20/2018 12:54:28 Reading Location: [facility] P048 Angio Body Reading Room Addendum [...] measures 7.3 and 7.9 mm, respectively with qfhe-oi-qsvmabcuwssnyfpbtm and nocalcific atherosclerosis present. The minimum and [...] 5.An addendum will be dictated by the Morphologist Radiologist regarding the nonvascular findings. Signed: Puneet Espinoza MD Report Verified Date/Time:04/19/2018 14:19:03 Reading Location: [place] [address] Cardiology MRI Procedure Note Interface, External Ris In - 04/20/2018 12:56 PM CDT Addendum Begins REPORT STATUS:A Addendum: I agree with the previously described non vascular findings.. Additionally, the lungs demonstrate fibrotic changes which are most pronounced in the bilateral bases. Biapical pleural-parenchymal scarring is present. Signed: Dejon Bland MD Report Verified Date/Time: 04/20/2018 12:54:28 Reading Location: [place] [id number] Angio Body Reading Room Addendum Ends FINAL [...] to the contrast sheet scanned in the Prized system for the amount and route of [...] measures 7.3 and 7.9 mm, respectively with gogo-ni-cmbhsebl tortuosity and no calcific atherosclerosis present. The [...] An addendum will be dictated by the Morphologist Radiologist regarding the nonvascular findings. Signed: Puneet Espinoza MD Report Verified Date/Time: 04/19/2018 14:19:03 Reading Location: [facility] P0 Cardiology MRI Performing Organization Address City/State/Zipcode Phone Number [facility] POC-Creatinine (04/19/2018 9:34 AM CDT) POC-Creatinine 1.3Comment: TESTED AT 0.6 - 1.3 mg/dL [facility] [address] [facility] [address] POC-EGFR 52 mL/min/1.73M2 [facility] Specimen Blood Performing Organization Address City/State/Zipcode Phone Number [facility] [address] [place] [address] [phone] CENTER after 03/18/2018 Insurance Payer Benefit Plan / Group Subscriber ID Type Phone Address MEDICARE MEDICARE A B xxxxxxxxxx Medicare AETNA - MGD CARE AETNA INDEMNITY NON CONTR xxxxxxxxxx Comm Advance Directives For more information, please contact:[address] [phone] Code Status Date Activated Date Inactivated Comments Full Code 05/19/2018 5:27 AM 05/30/2018 5:08 PM This code status was determined by: Patient
--- OUTSIDE RECORDS SUMMARY | 2019-03-19 12:14 | XMS REPORT ---
:1930 Author Organization [facility] Address [address] [place] [address] Care Team Providers Name Role Phone PACOTONIE VAIL MARCYDUNCAN Unavailable Unavailable ROBERT GARCIA Unavailable Unavailable Problems [...] (BEAKER) (test 112 mg/dL 70-110 TESTED AT [address] uuqw=1145) [facility] [address] POCT-GLUCOSE [id number] 08:17:00 Test Item Value Reference Range Comments POC-GLUCOSE METER (BEAKER) 98 mg/dL 70-110 TESTED AT [address] (test dbqb=5071) [facility] [address] BASIC METABOLIC [id number] 06:16:00 Test Item Value Reference Range Comments SODIUM (BEAKER) (test 136 meq/L 136-145 gvky=155) POTASSIUM (BEAKER) (test 3.7 meq/L 3.5-5.1 pexh=454) CHLORIDE (BEAKER) (test 101 meq/L 98-107 notl=906) CO2 (BEAKER) (test 26 meq/L 22-29 vqhi=872) BLOOD UREA NITROGEN 28 mg/dL 7-21 (BEAKER) (test sftw=730) CREATININE (BEAKER) (test 1.31 mg/dL 0.57-1.25 goym=377) GLUCOSE RANDOM (BEAKER) 74 mg/dL 70-105 (test kwsb=701) CALCIUM (BEAKER) (test 8.9 mg/dL 8.4-10.2 gzqs=931) EGFR (BEAKER) (test 52 mL/min/1.73 sq m ESTIMATED GFR IS NOT dmmz=5161) ACCURATE CREATININE CLEARANCE IN PREDICTING GLOMERULAR FILTRATION RATE. ESTIMATED GFR IS NOT APPLICABLE FOR DIALYSIS PATIENTS. PROTHROMBIN [id number] 05:42:00 Test Item Value Reference Range Comments PROTIME (BEAKER) (test flko=007) 22.3 seconds 11.7-14.7 INR (BEAKER) (test qoso=633) 2.0 <=5.9 RECOMMENDED COUMADIN/WARFARIN INR THERAPY RANGESSTANDARD DOSE: 2.0 - 3.0 Includes: PROPHYLAXIS forvenous thrombosis, systemic embolization; TREATMENT for venous thrombosis and/or pulmonary embolus.HIGH RISK: Target INR is 2.5-3.5 for patients with mechanical heart valves.CBC (HEMOGRAM ONLY)2018-05-30 05:34:00 Test Item Value Reference Range Comments WHITE BLOOD CELL COUNT (BEAKER) (test bkkj=879) 10.0 K/ L 3.5-10.5 RED BLOOD CELL COUNT (BEAKER) (test cpdm=181) 3.44 M/ L 4.63-6.08 HEMOGLOBIN (BEAKER) (test zqpk=758) 9.6 GM/DL 13.7-17.5 HEMATOCRIT (BEAKER) (test fvqq=881) 30.8 % 40.1-51.0 MEAN CORPUSCULAR VOLUME (BEAKER) (test dwzo=453) 89.5 fL 79.0-92.2 MEAN CORPUSCULAR HEMOGLOBIN (BEAKER) (test 27.9 pg 25.7-32.2 njvf=928) MEAN CORPUSCULAR HEMOGLOBIN CONC (BEAKER) (test 31.2 GM/DL 32.3-36.5 babi=136) RED CELL DISTRIBUTION WIDTH (BEAKER) (test 16.1 % 11.6-14.4 jhjz=890) PLATELET COUNT (BEAKER) (test yeqv=390) 169 K/CU MM 150-450 MEAN PLATELET VOLUME (BEAKER) (test okqb=961) 11.5 fL 9.4-12.4 NUCLEATED RED BLOOD CELLS (BEAKER) (test 0 /100 WBC 0-0 qlnu=294) POCT-GLUCOSE [id number] 21:35:00 Test Item Value Reference Range Comments POC-GLUCOSE METER (BEAKER) 203 mg/dL 70-110 TESTED AT [address] (test uxps=9464) [place] [id number] POCT-GLUCOSE [id number] 16:47:00 Test Item Value Reference Range Comments POC-GLUCOSE METER (BEAKER) 177 mg/dL 70-110 TESTED AT [address] (test tgcs=0156) [place] [id number] POCT-GLUCOSE [id number] 12:17:00 Test Item Value Reference Range Comments POC-GLUCOSE METER (BEAKER) 139 mg/dL 70-110 TESTED AT [address] (test kcyu=1893) [place] [address] POCT-GLUCOSE [id number] 08:38:00 Test Item Value Reference Range Comments POC-GLUCOSE METER (BEAKER) 83 mg/dL 70-110 TESTED AT [address] (test kadi=6833) [place] [address] PROTHROMBIN [id number] 06:39:00 Test Item Value Reference Range Comments PROTIME (BEAKER) (test stwk=762) 23.6 seconds 11.7-14.7 INR (BEAKER) (test yrog=547) 2.1 <=5.9 RECOMMENDED COUMADIN/WARFARIN INR THERAPY RANGESSTANDARD DOSE: 2.0 - 3.0 Includes: PROPHYLAXIS forvenous thrombosis, systemic embolization; TREATMENT for venous thrombosis and/or pulmonary embolus.HIGH RISK: Target INR is 2.5-3.5 for patients with mechanical heart valves.POCT-GLUCOSE [id number] 21:31:00 Test Item Value Reference Range Comments POC-GLUCOSE METER (BEAKER) 187 mg/dL 70-110 TESTED AT [address] (test hena=8321) [place] [address] POCT-GLUCOSE [id number] 11:55:00 Test Item Value Reference Range Comments POC-GLUCOSE METER (BEAKER) 250 mg/dL 70-110 TESTED AT [address] (test ezed=3190) [place] [address] POCT-GLUCOSE [id number] 07:55:00 Test Item Value Reference Range Comments POC-GLUCOSE METER (BEAKER) 156 mg/dL 70-110 TESTED AT [address] (test ssbk=2919) [place] [address] [id number] 07:33:00 Test Item Value Reference Range Comments MAGNESIUM (BEAKER) (test ilaz=301) 2.3 mg/dL 1.6-2.6 PROTHROMBIN [id number] 06:33:00 Test Item Value Reference Range Comments PROTIME (BEAKER) (test mmda=333) 20.3 seconds 11.7-14.7 INR (BEAKER) (test nguz=513) 1.7 <=5.9 RECOMMENDED COUMADIN/WARFARIN INR THERAPY RANGESSTANDARD DOSE: 2.0 - 3.0 Includes: PROPHYLAXIS forvenous thrombosis, systemic embolization; TREATMENT for venous thrombosis and/or pulmonary embolus.HIGH RISK: Target INR is 2.5-3.5 for patients with mechanical heart valves.BASIC METABOLIC [id number] 21:18: 00 Test Item Value Reference Range Comments SODIUM (BEAKER) (test 137 meq/L 136-145 viwz=313) POTASSIUM (BEAKER) (test 4.1 meq/L 3.5-5.1 dvdt=387) CHLORIDE (BEAKER) (test 102 meq/L 98-107 lrxz=329) CO2 (BEAKER) (test 26 meq/L 22-29 cijw=698) BLOOD UREA NITROGEN 32 mg/dL 7-21 (BEAKER) (test szjy=693) CREATININE (BEAKER) (test 1.30 mg/dL 0.57-1.25 eqln=513) GLUCOSE RANDOM (BEAKER) 95 mg/dL 70-105 (test hyso=774) CALCIUM (BEAKER) (test 9.1 mg/dL 8.4-10.2 llom=375) EGFR (BEAKER) (test 52 mL/min/1.73 sq m ESTIMATED GFR IS NOT enbq=1609) ACCURATE CREATININE CLEARANCE IN PREDICTING GLOMERULAR FILTRATION RATE. ESTIMATED GFR IS NOT APPLICABLE FOR DIALYSIS PATIENTS. POCT-GLUCOSE [id number] 21:16:00 Test Item Value Reference Range Comments POC-GLUCOSE METER (BEAKER) 94 mg/dL 70-110 TESTED AT [facility] [address] [facility] (test wtsn=1563) [facility] [address] CBC (HEMOGRAM ONLY)2018-05-27 21:04:00 Test Item Value Reference Range Comments WHITE BLOOD CELL COUNT (BEAKER) (test qkxm=834) 11.1 K/ L 3.5-10.5 RED BLOOD CELL COUNT (BEAKER) (test mgru=112) 3.63 M/ L 4.63-6.08 HEMOGLOBIN (BEAKER) (test bqti=468) 10.1 GM/DL 13.7-17.5 HEMATOCRIT (BEAKER) (test zvie=822) 32.6 % 40.1-51.0 MEAN CORPUSCULAR VOLUME (BEAKER) (test ejdh=925) 89.8 fL 79.0-92.2 MEAN CORPUSCULAR HEMOGLOBIN (BEAKER) (test 27.8 pg 25.7-32.2 izid=104) MEAN CORPUSCULAR HEMOGLOBIN CONC (BEAKER) (test 31.0 GM/DL 32.3-36.5 gjpl=343) RED CELL DISTRIBUTION WIDTH (BEAKER) (test 15.9 % 11.6-14.4 ybwo=909) PLATELET COUNT (BEAKER) (test cimt=569) 171 K/CU MM 150-450 MEAN PLATELET VOLUME (BEAKER) (test ycvz=689) 11.4 fL 9.4-12.4 NUCLEATED RED BLOOD CELLS (BEAKER) (test 0 /100 WBC 0-0 tlju=974) POCT-GLUCOSE [id number] 17:03:00 Test Item Value Reference Range Comments POC-GLUCOSE METER (BEAKER) 226 mg/dL 70-110 TESTED AT [address] (test bsnt=4158) [place] [id number] POCT-GLUCOSE [id number] 11:53:00 Test Item Value Reference Range Comments POC-GLUCOSE METER (BEAKER) 154 mg/dL 70-110 TESTED AT [address] (test sfnt=3027) [place] [address] POCT-GLUCOSE [id number] 07:58:00 Test Item Value Reference Range Comments POC-GLUCOSE METER (BEAKER) 78 mg/dL 70-110 TESTED AT [address] (test xrnh=6983) [place] [address] [id number] 06:27:00 Test Item Value Reference Range Comments MAGNESIUM (BEAKER) (test olvc=789) 2.1 mg/dL 1.6-2.6 PROTHROMBIN TIME/[id number] 05:53:00 Test Item Value Reference Range Comments PROTIME (BEAKER) (test sdmz=021) 19.1 seconds 11.7-14.7 INR (BEAKER) (test zkmj=888) 1.6 <=5.9 RECOMMENDED COUMADIN/WARFARIN INR THERAPY RANGESSTANDARD DOSE: 2.0 - 3.0 Includes: PROPHYLAXIS forvenous thrombosis, systemic embolization; TREATMENT for venous thrombosis and/or pulmonary embolus.HIGH RISK: Target INR is 2.5-3.5 for patients with mechanical heart valves.POCT-GLUCOSE [id number] 21:34:00 Test Item Value Reference Range Comments POC-GLUCOSE METER (BEAKER) 221 mg/dL 70-110 TESTED AT [address] (test wxes=3388) [place] [address] POCT-GLUCOSE [id number] 18:12:00 Test Item Value Reference Range Comments POC-GLUCOSE METER (BEAKER) 173 mg/dL 70-110 TESTED AT [address] (test fgda=9391) [place] [address] POCT-GLUCOSE [id number] 12:42:00 Test Item Value Reference Range Comments POC-GLUCOSE METER (BEAKER) 286 mg/dL 70-110 TESTED AT [address] (test dgmp=7325) [place] [address] POCT-GLUCOSE [id number] 08:40:00 Test Item Value Reference Range Comments POC-GLUCOSE METER (BEAKER) 91 mg/dL 70-110 TESTED AT [address] (test yzye=3535) [place] [address] [id number] 07:52:00 Test Item Value Reference Range Comments MAGNESIUM (BEAKER) (test pnme=395) 2.2 mg/dL 1.6-2.6 PROTHROMBIN [id number] 07:30:00 Test Item Value Reference Range Comments PROTIME (BEAKER) (test dxmo=119) 15.1 seconds 11.7-14.7 INR (BEAKER) (test xwtj=011) 1.2 <=5.9 RECOMMENDED COUMADIN/WARFARIN INR THERAPY RANGESSTANDARD DOSE: 2.0 - 3.0 Includes: PROPHYLAXIS forvenous thrombosis, systemic embolization; TREATMENT for venous thrombosis and/or pulmonary embolus.HIGH RISK: Target INR is 2.5-3.5 for patients with mechanical heart valves.CBC W/PLT COUNT & AUTO [id number] 07:24:00 Test Item Value Reference Range Comments WHITE BLOOD CELL COUNT (BEAKER) (test fnvd=660) 12.2 K/ L 3.5-10.5 RED BLOOD CELL COUNT (BEAKER) (test lnqx=796) 3.70 M/ L 4.63-6.08 HEMOGLOBIN (BEAKER) (test eksr=360) 10.6 GM/DL 13.7-17.5 HEMATOCRIT (BEAKER) (test pdqh=515) 33.2 % 40.1-51.0 MEAN CORPUSCULAR VOLUME (BEAKER) (test indg=002) 89.7 fL 79.0-92.2 MEAN CORPUSCULAR HEMOGLOBIN (BEAKER) (test 28.6 pg 25.7-32.2 rxic=003) MEAN CORPUSCULAR HEMOGLOBIN CONC (BEAKER) (test 31.9 GM/DL 32.3-36.5 lfou=981) RED CELL DISTRIBUTION WIDTH (BEAKER) (test 15.9 % 11.6-14.4 tuyu=527) PLATELET COUNT (BEAKER) (test gjwn=837) 137 K/CU MM 150-450 MEAN PLATELET VOLUME (BEAKER) (test isyz=930) 11.1 fL 9.4-12.4 NUCLEATED RED BLOOD CELLS (BEAKER) (test 0 /100 WBC 0-0 opei=060) NEUTROPHILS RELATIVE PERCENT (BEAKER) (test 54 % uprg=616) LYMPHOCYTES RELATIVE PERCENT (BEAKER) (test 33 % lhup=749) MONOCYTES RELATIVE PERCENT (BEAKER) (test 8 % mcrz=366) EOSINOPHILS RELATIVE PERCENT (BEAKER) (test 3 % sgno=617) BASOPHILS RELATIVE PERCENT (BEAKER) (test 0 % vnaa=815) NEUTROPHILS ABSOLUTE COUNT (BEAKER) (test 6.59 K/ L 1.78-5.38 mcve=489) LYMPHOCYTES ABSOLUTE COUNT (BEAKER) (test 3.96 K/ L 1.32-3.57 znvm=285) MONOCYTES ABSOLUTE COUNT (BEAKER) (test 1.00 K/ L 0.30-0.82 inhh=909) EOSINOPHILS ABSOLUTE COUNT (BEAKER) (test 0.30 K/ L 0.04-0.54 unit=285) BASOPHILS ABSOLUTE COUNT (BEAKER) (test 0.05 K/ L 0.01-0.08 dcmb=633) IMMATURE GRANULOCYTES-RELATIVE PERCENT (BEAKER) 2 % 0-1 (test mxjt=2068) POCT-GLUCOSE [id number] 22:05:00 Test Item Value Reference Range Comments POC-GLUCOSE METER (BEAKER) 122 mg/dL 70-110 TESTED AT [facility] [address] [facility] (test pgcw=6083) [facility] [address] BASIC METABOLIC [id number] 21:48:00 Test Item Value Reference Range Comments SODIUM (BEAKER) (test 135 meq/L 136-145 vsej=218) POTASSIUM (BEAKER) (test 4.2 meq/L 3.5-5.1 lezy=465) CHLORIDE (BEAKER) (test 101 meq/L 98-107 liwt=320) CO2 (BEAKER) (test 25 meq/L 22-29 ojlt=219) BLOOD UREA NITROGEN 27 mg/dL 7-21 (BEAKER) (test gapr=847) CREATININE (BEAKER) (test 1.09 mg/dL 0.57-1.25 tvfg=857) GLUCOSE RANDOM (BEAKER) 139 mg/dL 70-105 (test sxsu=868) CALCIUM (BEAKER) (test 9.5 mg/dL 8.4-10.2 gjvs=109) EGFR (BEAKER) (test 64 mL/min/1.73 sq m ESTIMATED GFR IS NOT czlw=1606) ACCURATE CREATININE CLEARANCE IN PREDICTING GLOMERULAR FILTRATION RATE. ESTIMATED GFR IS NOT APPLICABLE FOR DIALYSIS PATIENTS. CBC (HEMOGRAM ONLY)2018-05-25 21:37:00 Test Item Value Reference Range Comments WHITE BLOOD CELL COUNT (BEAKER) (test kovo=666) 17.3 K/ L 3.5-10.5 RED BLOOD CELL COUNT (BEAKER) (test neba=611) 3.84 M/ L 4.63-6.08 HEMOGLOBIN (BEAKER) (test ylkz=331) 11.0 GM/DL 13.7-17.5 HEMATOCRIT (BEAKER) (test size=635) 33.5 % 40.1-51.0 MEAN CORPUSCULAR VOLUME (BEAKER) (test huxe=241) 87.2 fL 79.0-92.2 MEAN CORPUSCULAR HEMOGLOBIN (BEAKER) (test 28.6 pg 25.7-32.2 bhha=183) MEAN CORPUSCULAR HEMOGLOBIN CONC (BEAKER) (test 32.8 GM/DL 32.3-36.5 dfir=550) RED CELL DISTRIBUTION WIDTH (BEAKER) (test 15.8 % 11.6-14.4 pegx=858) PLATELET COUNT (BEAKER) (test mmee=283) 151 K/CU MM 150-450 MEAN PLATELET VOLUME (BEAKER) (test yzqv=691) 11.6 fL 9.4-12.4 NUCLEATED RED BLOOD CELLS (BEAKER) (test 0 /100 WBC 0-0 srzh=514) CT, BRAIN, WITHOUT [id number] 19:17:00FINAL REPORT CT head without contrast 05/25/2018 [...] Boykin Verified Date/Time: 2017 19:17:21 Reading Location: [facility] Radiology Reading Room Electronicallysigned by: MICHEAL BOYKIN M.D. on 05/25/2018 07:17 PMPOCT- GLUCOSE [id number] 17:10:00 Test Item Value Reference Range Comments POC-GLUCOSE METER (BEAKER) 186 mg/dL 70-110 TESTED AT [facility] [address] [facility] (test libg=8237) [facility] [address] POCT-GLUCOSE [id number] 11:53:00 Test Item Value Reference Range Comments POC-GLUCOSE METER (BEAKER) 152 mg/dL 70-110 TESTED AT [facility] [address] [facility] (test aegx=9973) [facility] [address] POCT-GLUCOSE [id number] 08:24:00 Test Item Value Reference Range Comments POC-GLUCOSE METER (BEAKER) 126 mg/dL 70-110 TESTED AT [facility] [address] [facility] (test sdqc=7692) [facility] [address] BASIC METABOLIC [id number] 06:46:00 Test Item Value Reference Range Comments SODIUM (BEAKER) (test 137 meq/L 136-145 fmfb=593) POTASSIUM (BEAKER) (test 3.8 meq/L 3.5-5.1 Specimen slightly mgnu=721) hemolyzed CHLORIDE (BEAKER) (test 101 meq/L 98-107 umxq=942) CO2 (BEAKER) (test 25 meq/L 22-29 pyna=152) BLOOD UREA NITROGEN 26 mg/dL 7-21 (BEAKER) (test cmws=215) CREATININE (BEAKER) (test 0.94 mg/dL 0.57-1.25 Specimen slightly ohrr=966) hemolyzed GLUCOSE RANDOM (BEAKER) 110 mg/dL 70-105 (test wlfk=205) CALCIUM (BEAKER) (test 9.2 mg/dL 8.4-10.2 zmry=433) EGFR (BEAKER) (test 76 mL/min/1.73 sq m ESTIMATED GFR IS NOT fhqn=8412) ACCURATE CREATININE CLEARANCE IN PREDICTING GLOMERULAR FILTRATION RATE. ESTIMATED GFR IS NOT APPLICABLE FOR DIALYSIS PATIENTS. BLOOD [id number] 06:00:00 Test Item Value Reference Range Comments CULTURE (BEAKER) (test mibt=4900) No growth in 5 days BLOOD [id number] 06:00:00 Test Item Value Reference Range Comments CULTURE (BEAKER) (test wxgb=7520) No growth in 5 days [id number] 05:50:00 Test Item Value Reference Range Comments MAGNESIUM (BEAKER) (test 2.3 mg/dL 1.6-2.6 Specimen slightly hemolyzed uhbc=950) PROTHROMBIN [id number] 05:44:00 Test Item Value Reference Range Comments PROTIME (BEAKER) (test kkjz=740) 13.8 seconds 11.7-14.7 INR (BEAKER) (test pjog=271) 1.1 <=5.9 RECOMMENDED COUMADIN/WARFARIN INR THERAPY RANGESSTANDARD DOSE: 2.0 - 3.0 Includes: PROPHYLAXIS forvenous thrombosis, systemic embolization; TREATMENT for venous thrombosis and/or pulmonary embolus.HIGH RISK: Target INR is 2.5-3.5 for patients with mechanical heart valves.POCT-GLUCOSE [id number] 22:35:00 Test Item Value Reference Range Comments POC-GLUCOSE METER (BEAKER) 216 mg/dL 70-110 TESTED AT [address] (test dnlb=6198) [place] [id number] POCT-GLUCOSE [id number] 17:10:00 Test Item Value Reference Range Comments POC-GLUCOSE METER (BEAKER) 240 mg/dL 70-110 TESTED AT [address] (test lwlh=3497) [place] [address] POCT-GLUCOSE [id number] 12:11:00 Test Item Value Reference Range Comments POC-GLUCOSE METER (BEAKER) 172 mg/dL 70-110 TESTED AT [address] (test tefu=8981) [place] [address] [id number] 04:19:00 Test Item Value Reference Range Comments MAGNESIUM (BEAKER) (test gkgt=342) 2.2 mg/dL 1.6-2.6 BASIC METABOLIC [id number] 04:19:00 Test Item Value Reference Range Comments SODIUM (BEAKER) (test 140 meq/L 136-145 xlfz=408) POTASSIUM (BEAKER) (test 3.6 meq/L 3.5-5.1 evxk=572) CHLORIDE (BEAKER) (test 105 meq/L 98-107 nckh=504) CO2 (BEAKER) (test 28 meq/L 22-29 htgj=582) BLOOD UREA NITROGEN 33 mg/dL 7-21 (BEAKER) (test zkve=364) CREATININE (BEAKER) (test 0.96 mg/dL 0.57-1.25 grle=115) GLUCOSE RANDOM (BEAKER) 128 mg/dL 70-105 (test xyqi=699) CALCIUM (BEAKER) (test 9.0 mg/dL 8.4-10.2 xkjl=128) EGFR (BEAKER) (test 74 mL/min/1.73 sq m ESTIMATED GFR IS NOT ddiq=1177) ACCURATE CREATININE CLEARANCE IN PREDICTING GLOMERULAR FILTRATION RATE. ESTIMATED GFR IS NOT APPLICABLE FOR DIALYSIS PATIENTS. PROTHROMBIN [id number] 03:49:00 Test Item Value Reference Range Comments PROTIME (BEAKER) (test llmn=836) 13.8 seconds 11.7-14.7 INR (BEAKER) (test fljc=847) 1.1 <=5.9 RECOMMENDED COUMADIN/WARFARIN INR THERAPY RANGESSTANDARD DOSE: 2.0 - 3.0 Includes: PROPHYLAXIS forvenous thrombosis, systemic embolization; TREATMENT for venous thrombosis and/or pulmonary embolus.HIGH RISK: Target INR is 2.5-3.5 for patients with mechanical heart valves.While on warfarin.CBC (HEMOGRAM ONLY) 2018-05-24 03:43:00 Test Item Value Reference Range Comments WHITE BLOOD CELL COUNT (BEAKER) (test wwyi=163) 8.8 K/ L 3.5-10.5 RED BLOOD CELL COUNT (BEAKER) (test hked=013) 3.23 M/ L 4.63-6.08 HEMOGLOBIN (BEAKER) (test aszm=459) 9.2 GM/DL 13.7-17.5 HEMATOCRIT (BEAKER) (test gedt=076) 28.5 % 40.1-51.0 MEAN CORPUSCULAR VOLUME (BEAKER) (test xlpp=191) 88.2 fL 79.0-92.2 MEAN CORPUSCULAR HEMOGLOBIN (BEAKER) (test 28.5 pg 25.7-32.2 wrrj=121) MEAN CORPUSCULAR HEMOGLOBIN CONC (BEAKER) (test 32.3 GM/DL 32.3-36.5 lzcv=794) RED CELL DISTRIBUTION WIDTH (BEAKER) (test 15.0 % 11.6-14.4 tlxs=474) PLATELET COUNT (BEAKER) (test dgtb=832) 87 K/CU MM 150-450 MEAN PLATELET VOLUME (BEAKER) (test gufx=349) 11.6 fL 9.4-12.4 NUCLEATED RED BLOOD CELLS (BEAKER) (test 0 /100 WBC 0-0 khxm=722) POCT-GLUCOSE [id number] 23:13:00 Test Item Value Reference Range Comments POC-GLUCOSE METER (BEAKER) 170 mg/dL 70-110 TESTED AT [address] (test uidl=5683) [facility] [address] POCT-GLUCOSE [id number] 17:11:00 Test Item Value Reference Range Comments POC-GLUCOSE METER (BEAKER) 290 mg/dL 70-110 TESTED AT [address] (test zhju=6375) [place] [id number] CT, BRAIN, WITHOUT [id number] 15:31:00Reason for exam:->Cerebral embolizationWhat is the patient's [...] Boykin Verified Date/Time: 05/23/2018 15:31:32 Reading Location: [facility] C013V Neuro Reading Room POCT-GLUCOSE [id number] 12:34:00 Test Item Value Reference Range Comments POC-GLUCOSE METER (BEAKER) 204 mg/dL 70-110 TESTED AT [address] (test niri=3948) [facility] [address] [id number] 08:24:00 Test Item Value Reference Range Comments FERRITIN (BEAKER) (test xwhk=353) 435 ng/mL 5-275 POCT-GLUCOSE [id number] 08:21:00 Test Item Value Reference Range Comments POC-GLUCOSE METER (BEAKER) 134 mg/dL 70-110 TESTED AT [facility] [address] [facility] (test stah=1296) [facility] [address] IRON, TIBC, % SAT. (WITHOUT FERRITIN)2018-05-23 07:34:00 Test Item Value Reference Range Comments IRON (BEAKER) (test cpjb=988) 63 ug/dL 40-160 TOTAL IRON BINDING CAPACITY (BEAKER) (test 224 ug/dL 250-450 jzoq=849) IRON % SATURATION (2) (BEAKER) (test zrvh=3079) 28 % 20-55 [id number] 06:45:00 Test Item Value Reference Range Comments PARTIAL THROMBOPLASTIN TIME (BEAKER) (test 94.3 seconds 22.5-36.0 drru=424) [id number] 06:05:00 Test Item Value Reference Range Comments MAGNESIUM (BEAKER) (test ztuf=044) 2.3 mg/dL 1.6-2.6 BASIC METABOLIC [id number] 06:05:00 Test Item Value Reference Range Comments SODIUM (BEAKER) (test 138 meq/L 136-145 wdkm=229) POTASSIUM (BEAKER) (test 3.5 meq/L 3.5-5.1 iszp=316) CHLORIDE (BEAKER) (test 102 meq/L 98-107 tmil=254) CO2 (BEAKER) (test 27 meq/L 22-29 bpep=888) BLOOD UREA NITROGEN 38 mg/dL 7-21 (BEAKER) (test qrxa=750) CREATININE (BEAKER) (test 1.16 mg/dL 0.57-1.25 lwog=210) GLUCOSE RANDOM (BEAKER) 118 mg/dL 70-105 (test fpun=940) CALCIUM (BEAKER) (test 8.9 mg/dL 8.4-10.2 jmzt=520) EGFR (BEAKER) (test 60 mL/min/1.73 sq m ESTIMATED GFR IS NOT rhfy=2327) ACCURATE CREATININE CLEARANCE IN PREDICTING GLOMERULAR FILTRATION RATE. ESTIMATED GFR IS NOT APPLICABLE FOR DIALYSIS PATIENTS. CBC (HEMOGRAM ONLY)2018-05-23 05:55:00 Test Item Value Reference Range Comments WHITE BLOOD CELL COUNT (BEAKER) (test fpva=604) 9.8 K/ L 3.5-10.5 RED BLOOD CELL COUNT (BEAKER) (test ufot=075) 2.77 M/ L 4.63-6.08 HEMOGLOBIN (BEAKER) (test plge=797) 7.7 GM/DL 13.7-17.5 HEMATOCRIT (BEAKER) (test hxzp=654) 24.0 % 40.1-51.0 MEAN CORPUSCULAR VOLUME (BEAKER) (test fpus=975) 86.6 fL 79.0-92.2 MEAN CORPUSCULAR HEMOGLOBIN (BEAKER) (test 27.8 pg 25.7-32.2 knfc=335) MEAN CORPUSCULAR HEMOGLOBIN CONC (BEAKER) (test 32.1 GM/DL 32.3-36.5 jvsh=823) RED CELL DISTRIBUTION WIDTH (BEAKER) (test 15.9 % 11.6-14.4 ajmf=163) PLATELET COUNT (BEAKER) (test wsht=048) 74 K/CU MM 150-450 MEAN PLATELET VOLUME (BEAKER) (test veal=281) 11.8 fL 9.4-12.4 NUCLEATED RED BLOOD CELLS (BEAKER) (test 0 /100 WBC 0-0 zinu=007) [id number] 23:49:00 Test Item Value Reference Range Comments PARTIAL THROMBOPLASTIN TIME (BEAKER) (test 82.0 seconds 22.5-36.0 fvqj=722) POCT-GLUCOSE [id number] 22:25:00 Test Item Value Reference Range Comments POC-GLUCOSE METER (BEAKER) 212 mg/dL 70-110 TESTED AT [address] (test alla=1157) [place] [id number] 21:32:00 Test Item Value Reference Range Comments PARTIAL THROMBOPLASTIN TIME (BEAKER) (test 131.6 seconds 22.5-36.0 ixnh=904) POCT-GLUCOSE [id number] 17:58:00 Test Item Value Reference Range Comments POC-GLUCOSE METER (BEAKER) 296 mg/dL 70-110 TESTED AT [address] (test yrqt=0572) [place] [id number] 14:27:00 Test Item Value Reference Range Comments PARTIAL THROMBOPLASTIN TIME (BEAKER) (test 96.3 seconds 22.5-36.0 igeu=425) URINE [id number] 12:50:00 Test Item Value Reference Range Comments CULTURE (BEAKER) (test lacw=7267) No growth [id number] 12:49:00 Test Item Value Reference Range Comments PARTIAL THROMBOPLASTIN TIME (BEAKER) (test 150.3 seconds 22.5-36.0 ksxq=435) [id number] 05:53:00 Test Item Value Reference Range Comments PARTIAL THROMBOPLASTIN TIME (BEAKER) (test 44.1 seconds 22.5-36.0 uwtq=906) [id number] 03:32:00 Test Item Value Reference Range Comments PROTIME (BEAKER) (test lekw=549) 15.0 seconds 11.7-14.7 INR (BEAKER) (test ucxx=354) 1.2 <=5.9 PARTIAL THROMBOPLASTIN TIME (BEAKER) (test 179.7 seconds 22.5-36.0 mzwj=550) RECOMMENDED COUMADIN/WARFARIN INR THERAPY RANGESSTANDARD DOSE: 2.0 - 3.0 Includes: PROPHYLAXIS forvenous thrombosis, systemic embolization; TREATMENT for venous thrombosis and/or pulmonary embolus.HIGH RISK: Target INR is 2.5-3.5 for patients with mechanical heart valves.[id number] 02:54:00 Test Item Value Reference Range Comments PHOSPHORUS (BEAKER) (test tmwe=223) 3.6 mg/dL 2.3-4.7 [id number] 02:54:00 Test Item Value Reference Range Comments MAGNESIUM (BEAKER) (test qjwg=777) 2.4 mg/dL 1.6-2.6 BASIC METABOLIC [id number] 02:54:00 Test Item Value Reference Range Comments SODIUM (BEAKER) (test 138 meq/L 136-145 eshb=040) POTASSIUM (BEAKER) (test 3.7 meq/L 3.5-5.1 jrgb=609) CHLORIDE (BEAKER) (test 101 meq/L 98-107 izbi=060) CO2 (BEAKER) (test 27 meq/L 22-29 vtfa=859) BLOOD UREA NITROGEN 44 mg/dL 7-21 (BEAKER) (test mlpl=273) CREATININE (BEAKER) (test 1.30 mg/dL 0.57-1.25 bwrq=387) GLUCOSE RANDOM (BEAKER) 131 mg/dL 70-105 (test sisz=955) CALCIUM (BEAKER) (test 8.9 mg/dL 8.4-10.2 qxnh=559) EGFR (BEAKER) (test 52 mL/min/1.73 sq m ESTIMATED GFR IS NOT mbln=4037) ACCURATE CREATININE CLEARANCE IN PREDICTING GLOMERULAR FILTRATION RATE. ESTIMATED GFR IS NOT APPLICABLE FOR DIALYSIS PATIENTS. VANCOMYCIN LEVEL, [id number] 02:53:00 Test Item Value Reference Range Comments VANCOMYCIN RANDOM (BEAKER) (test fafm=454) 24.4 ug/mL Reference Range: No NormalsCALCIUM, [id number] 02:49:00 Test Item Value Reference Range Comments CALCIUM IONIZED (BEAKER) (test jpat=323) 1.15 mmol/L 1.12-1.27 PH, BLOOD (BEAKER) (test jtib=8133) 7.40 CBC (HEMOGRAM ONLY)2018-05-22 02:29:00 Test Item Value Reference Range Comments WHITE BLOOD CELL COUNT (BEAKER) (test tojf=256) 13.9 K/ L 3.5-10.5 RED BLOOD CELL COUNT (BEAKER) (test jeqe=565) 2.94 M/ L 4.63-6.08 HEMOGLOBIN (BEAKER) (test tsvg=383) 8.3 GM/DL 13.7-17.5 HEMATOCRIT (BEAKER) (test zdba=913) 25.5 % 40.1-51.0 MEAN CORPUSCULAR VOLUME (BEAKER) (test jxei=112) 86.7 fL 79.0-92.2 MEAN CORPUSCULAR HEMOGLOBIN (BEAKER) (test 28.2 pg 25.7-32.2 ayts=662) MEAN CORPUSCULAR HEMOGLOBIN CONC (BEAKER) (test 32.5 GM/DL 32.3-36.5 cdyg=124) RED CELL DISTRIBUTION WIDTH (BEAKER) (test 15.9 % 11.6-14.4 zhjf=802) PLATELET COUNT (BEAKER) (test lfhs=588) 67 K/CU MM 150-450 MEAN PLATELET VOLUME (BEAKER) (test gtqi=656) 11.8 fL 9.4-12.4 NUCLEATED RED BLOOD CELLS (BEAKER) (test 0 /100 WBC 0-0 ndfz=360) [id number] 00:28:00 Test Item Value Reference Range Comments PROTIME (BEAKER) (test iyfp=158) 15.9 seconds 11.7-14.7 INR (BEAKER) (test nfyw=124) 1.3 <=5.9 PARTIAL THROMBOPLASTIN TIME (BEAKER) (test 170.7 seconds 22.5-36.0 qwaa=925) RECOMMENDED COUMADIN/WARFARIN INR THERAPY RANGESSTANDARD DOSE: 2.0 - 3.0 Includes: PROPHYLAXIS forvenous thrombosis, systemic embolization; TREATMENT for venous thrombosis and/or pulmonary embolus.HIGH RISK: Target INR is 2.5-3.5 for patients with mechanical heart valves.BASIC METABOLIC [id number] 13:37: 00 Test Item Value Reference Range Comments SODIUM (BEAKER) (test 139 meq/L 136-145 porz=420) POTASSIUM (BEAKER) (test 3.8 meq/L 3.5-5.1 knty=371) CHLORIDE (BEAKER) (test 101 meq/L 98-107 fqnq=285) CO2 (BEAKER) (test 26 meq/L 22-29 umcg=571) BLOOD UREA NITROGEN 46 mg/dL 7-21 (BEAKER) (test gamg=218) CREATININE (BEAKER) (test 1.60 mg/dL 0.57-1.25 oirq=448) GLUCOSE RANDOM (BEAKER) 160 mg/dL 70-105 (test qluv=204) CALCIUM (BEAKER) (test 9.1 mg/dL 8.4-10.2 ikts=904) EGFR (BEAKER) (test 41 mL/min/1.73 sq m ESTIMATED GFR IS NOT etbu=0779) ACCURATE CREATININE CLEARANCE IN PREDICTING GLOMERULAR FILTRATION RATE. ESTIMATED GFR IS NOT APPLICABLE FOR DIALYSIS PATIENTS. MR, MRA, BRAIN, WITHOUT [id number] 12:04:00Reason for exam:-> Ischemic Stroke EvaluationFINAL REPORT MRA Head and Neck CLINICAL HISTORY: Stroke TECHNIQUE: MRA of thehead utilizing 3-D xcqx-lf-judfbz technique, with 3-D reconstructions.MRA of the neck utilizing 2-D and 3-D time- of-flight technique, with 3-D reconstructions. COMPARISON: None FINDINGS: There is no evidence for a [place] proximal branch vessel occlusion. There [...] vertebral arteries. IMPRESSION: No evidence for a [place] proximal branchvessel occlusion. No hemodynamically significant stenosis in the internal carotid arteries. 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 Signed: Jaycob Alvarado Verified Date/Time: 05/21/2018 12:04:26 Reading Location: [address] Neuro Reading Room MR, MRA, NECK, WITHOUT IV [id number] 12:04:00Reason for exam:->Ischemic Stroke EvaluationFINAL REPORT MRA Head and Neck CLINICAL HISTORY: Stroke TECHNIQUE: MRA of thehead utilizing 3-D kgil-qs-kqmwtc technique, with 3-D reconstructions.MRA of the neck utilizing 2-D and 3-D hlgp-xg-ciiviz technique, with 3-D reconstructions. COMPARISON: None FINDINGS: There is no evidence for a [place] proximal branch vessel occlusion. There [...] vertebral arteries. IMPRESSION: No evidence for a [place] proximal branchvessel occlusion. No hemodynamically significant stenosis in the internal carotid arteries. 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 Signed: Jaycob Alvarado Verified Date/Time: 05/21/2018 12:04:26 Reading Location: [address] Neuro Reading Room MR, BRAIN, WITHOUT [id number] 11:58:00Reason for exam:->Ischemic Stroke EvaluationFINAL REPORT MRI [...] Alvarado Verified Date/Time: 05/21/2018 11:58:08 Reading Location: [address] Neuro Reading Room RAD, CHEST, 1 VIEW, NON [id number] 10:54:00Reason for exam:->hypoxemiaShould this be performed at [...] IMPRESSION: No significant change. Signed : Addy Zapata Verified Date/Time: 05/21/2018 10:54:40 Reading Location: [facility] B1 C013X Ortho Consult Reading Room HEMOGLOBIN [id number] 08:30:00 Test Item Value Reference Range Comments HEMOGLOBIN A1C (BEAKER) (test zubo=248) 8.1 % 4.3-6.1 LIPID [id number] 07:31:00 Test Item Value Reference Range Comments TRIGLYCERIDES (BEAKER) (test cwgt=668) 348 mg/dL CHOLESTEROL (BEAKER) (test jtvj=192) 208 mg/dL HDL CHOLESTEROL (BEAKER) (test zhni=271) 26 mg/dL LDL CHOLESTEROL CALCULATED (BEAKER) (test 112 mg/dL llfd=936) Triglyceride Reference Range: Low Risk <150 Borderline 150- 199 High Risk 200-499 Very High Risk >=500Cholesterol Reference Range: Low Risk <200 Borderline 200-239 High Risk > 240HDL Cholesterol Reference Range: Low Risk >=60 High Risk <40LDL Cholesterol Reference Range: Optimal <100 Near Optimal 100-129 Borderline 130-159 High 160-189 Very High >=[id number] 04:49:00 Test Item Value Reference Range Comments PHOSPHORUS (BEAKER) (test vxfh=004) 6.4 mg/dL 2.3-4.7 [id number] 04:49:00 Test Item Value Reference Range Comments MAGNESIUM (BEAKER) (test aaad=093) 2.3 mg/dL 1.6-2.6 BASIC METABOLIC [id number] 04:49:00 Test Item Value Reference Range Comments SODIUM (BEAKER) (test 139 meq/L 136-145 bels=150) POTASSIUM (BEAKER) (test 3.8 meq/L 3.5-5.1 krcb=041) CHLORIDE (BEAKER) (test 102 meq/L 98-107 hzte=867) CO2 (BEAKER) (test 23 meq/L 22-29 fncq=720) BLOOD UREA NITROGEN 49 mg/dL 7-21 (BEAKER) (test uoaf=147) CREATININE (BEAKER) (test 1.96 mg/dL 0.57-1.25 desq=908) GLUCOSE RANDOM (BEAKER) 175 mg/dL 70-105 (test ucnx=366) CALCIUM (BEAKER) (test 8.7 mg/dL 8.4-10.2 hvyo=602) EGFR (BEAKER) (test 33 mL/min/1.73 sq m ESTIMATED GFR IS NOT nrhh=8183) ACCURATE CREATININE CLEARANCE IN PREDICTING GLOMERULAR FILTRATION RATE. ESTIMATED GFR IS NOT APPLICABLE FOR DIALYSIS PATIENTS. VITAMIN [id number] 04:11:00 Test Item Value Reference Range Comments VITAMIN B12 (BEAKER) (test psqv=300) 692 pg/mL 213-816 TSH/FREE T4 IF [id number] 04:11:00 Test Item Value Reference Range Comments THYROID STIMULATING HORMONE (BEAKER) (test 0.77 uIU/mL 0.35-4.94 inmt=214) CALCIUM, [id number] 03:53:00 Test Item Value Reference Range Comments CALCIUM IONIZED (BEAKER) (test xynp=661) 1.12 mmol/L 1.12-1.27 PH, BLOOD (BEAKER) (test ikic=6990) 7.35 CBC (HEMOGRAM ONLY)2018-05-21 03:16:00 Test Item Value Reference Range Comments WHITE BLOOD CELL COUNT (BEAKER) (test evxt=408) 16.4 K/ L 3.5-10.5 RED BLOOD CELL COUNT (BEAKER) (test dzzi=242) 3.61 M/ L 4.63-6.08 HEMOGLOBIN (BEAKER) (test xktr=156) 10.1 GM/DL 13.7-17.5 HEMATOCRIT (BEAKER) (test bnbm=823) 32.2 % 40.1-51.0 MEAN CORPUSCULAR VOLUME (BEAKER) (test xrfy=831) 89.2 fL 79.0-92.2 MEAN CORPUSCULAR HEMOGLOBIN (BEAKER) (test 28.0 pg 25.7-32.2 midc=370) MEAN CORPUSCULAR HEMOGLOBIN CONC (BEAKER) (test 31.4 GM/DL 32.3-36.5 grvt=635) RED CELL DISTRIBUTION WIDTH (BEAKER) (test 16.1 % 11.6-14.4 wzsi=691) PLATELET COUNT (BEAKER) (test agto=935) 81 K/CU MM 150-450 MEAN PLATELET VOLUME (BEAKER) (test jshz=123) 11.0 fL 9.4-12.4 NUCLEATED RED BLOOD CELLS (BEAKER) (test 0 /100 WBC 0-0 pqvw=002) EEG AWAKE AND [id number] 15:54:00Reason for exam:->AMSDate(s) of EEDATE OF REPORT: 05/20/2018ACC: [id number] Number: [id number] Location : Inpatient ICUStart time: 14:17Stop time: 14:38ICD-10: R56.9CPT Code: 61253 HISTORY: 87 y.o. RHM w/ severe who [...] Rooney MDNeurophysiology Fellow, PGY5 Betsey Tello NeurophysiologistCHI St. [facility] POCT- GLUCOSE [id number] 13:52:00 Test Item Value Reference Range Comments POC-GLUCOSE METER (BEAKER) 163 mg/dL 70-110 TESTED AT [facility] [address] (test bwgh=5396) [facility] [address] TROPONIN [id number] 11:59:00 Test Item Value Reference Range Comments TROPONIN I (BEAKER) (test lgtx=390) 1.13 ng/mL 0.00-0.03 Troponin I (TnI) levels [...] acute neurological disease, and persistent tachyarrhythmia.COMPREHENSIVE METABOLIC [id number] 11:47:00 Test Item Value Reference Range Comments TOTAL PROTEIN (BEAKER) 5.7 gm/dL 6.0-8.3 (test yjut=948) ALBUMIN (BEAKER) (test 3.4 g/dL 3.5-5.0 yqzp=0444) ALKALINE PHOSPHATASE 42 U/L 40-150 (BEAKER) (test fygf=573) BILIRUBIN TOTAL (BEAKER) 0.8 mg/dL 0.2-1.2 (test dlcc=143) SODIUM (BEAKER) (test 139 meq/L 136-145 vyfh=862) POTASSIUM (BEAKER) (test 4.2 meq/L 3.5-5.1 pehu=980) CHLORIDE (BEAKER) (test 100 meq/L 98-107 ncvl=715) CO2 (BEAKER) (test 23 meq/L 22-29 sagh=573) BLOOD UREA NITROGEN 38 mg/dL 7-21 (BEAKER) (test gvbw=539) CREATININE (BEAKER) (test 2.17 mg/dL 0.57-1.25 evez=588) GLUCOSE RANDOM (BEAKER) 129 mg/dL 70-105 (test cift=254) CALCIUM (BEAKER) (test 9.0 mg/dL 8.4-10.2 whgc=073) AST (SGOT) (BEAKER) (test 27 U/L 5-34 vxyi=356) ALT (SGPT) (BEAKER) (test 14 U/L 6-55 vvub=870) EGFR (BEAKER) (test 29 mL/min/1.73 sq m ESTIMATED GFR IS NOT mhom=4697) ACCURATE CREATININE CLEARANCE IN PREDICTING GLOMERULAR FILTRATION RATE. ESTIMATED GFR IS NOT APPLICABLE FOR DIALYSIS PATIENTS. CREATINE KINASE (CK), TOTAL AND [id number] 11:42:00 Test Item Value Reference Range Comments CREATINE KINASE TOTAL (BEAKER) (test cqeo=169) 138 U/L 29-200 CREATINE KINASE-MB (BEAKER) (test khhm=028) 4.2 ng/mL 0.0-6.6 CREATINE KINASE-MB INDEX (BEAKER) (test pcwo=589) 3.0 % CK-MB Reference Range:<6.7 Normal6.7-10.0 Borderline>10.0 [id number] 11:36:00 Test Item Value Reference Range Comments PHOSPHORUS (BEAKER) (test cojn=196) 5.4 mg/dL 2.3-4.7 [id number] 11:36:00 Test Item Value Reference Range Comments MAGNESIUM (BEAKER) (test bapr=204) 2.3 mg/dL 1.6-2.6 RAD, ABDOMEN/KUB, 1 VIEW [id number] 11:33:00Reason for exam:->Nasogastric tube insertionShould this be performed at the bedside?->YesFINAL REPORT Abdomen one view INDICATION: Nasogastric tube insertion COMPARISON: None available IMPRESSION: NG tube extends to the gastric body. The imaged bowel gas pattern is nonspecific. There are degenerative spine changes and incidental vascular calcifications. The imaged chest is similar to 2017. Signed: Kenan Motteport Verified Date/Time: 05/20/2018 11: 33:02 Reading Location: [facility] Radiology Reading Room LACTIC ACID, VENOUS, WHOLE [id number] 11:32:00 Test Item Value Reference Range Comments LACTATE BLOOD VENOUS (2) (BEAKER) (test 2.1 mmol/L 0.5-2.2 iljg=2141) Effective 04/02/2016: Units/Reference Range ChangeNew: 0.5-2.2 mmol/L Previous: 5 -20 mg/dLBLOOD GAS, [id number] 11:21:00 Test Item Value Reference Range Comments PH VENOUS (BEAKER) (test jzyd=941) 7.40 7.32-7.42 PCO2 VENOUS (BEAKER) (test lbin=977) 45 mmHg 41-51 PO2 VENOUS (BEAKER) (test dmpo=548) 26 mmHg 25-40 O2 SATURATION VENOUS (BEAKER) (test hjei=954) 46.3 % 40.0-70.0 HCO3 VENOUS (BEAKER) (test lici=589) 27 mmol/L 21-29 BASE EXCESS VENOUS (BEAKER) (test piwb=740) 1.8 mmol/L -2.0-3.0 PATIENT TEMPERATURE (BEAKER) (test yoqm=2977) 36.9 C FIO2 (BEAKER) (test jxfr=1319) 36.0 % BASIC METABOLIC [id number] 05:05:00 Test Item Value Reference Range Comments SODIUM (BEAKER) (test 140 meq/L 136-145 yumy=275) POTASSIUM (BEAKER) (test 3.9 meq/L 3.5-5.1 Specimen slightly zcyg=770) hemolyzed CHLORIDE (BEAKER) (test 105 meq/L 98-107 aytr=834) CO2 (BEAKER) (test 21 meq/L 22-29 oxhk=779) BLOOD UREA NITROGEN 31 mg/dL 7-21 (BEAKER) (test aqyd=326) CREATININE (BEAKER) (test 1.63 mg/dL 0.57-1.25 Specimen slightly scey=375) hemolyzed GLUCOSE RANDOM (BEAKER) 124 mg/dL 70-105 (test izyg=390) CALCIUM (BEAKER) (test 8.0 mg/dL 8.4-10.2 wjdi=867) EGFR (BEAKER) (test 40 mL/min/1.73 sq m ESTIMATED GFR IS NOT gykk=0093) ACCURATE CREATININE CLEARANCE IN PREDICTING GLOMERULAR FILTRATION RATE. ESTIMATED GFR IS NOT APPLICABLE FOR DIALYSIS PATIENTS. CBC (HEMOGRAM ONLY)2018-05-20 04:44:00 Test Item Value Reference Range Comments WHITE BLOOD CELL COUNT (BEAKER) (test ujfl=840) 16.5 K/ L 3.5-10.5 RED BLOOD CELL COUNT (BEAKER) (test kjde=137) 3.86 M/ L 4.63-6.08 HEMOGLOBIN (BEAKER) (test tokf=270) 10.6 GM/DL 13.7-17.5 HEMATOCRIT (BEAKER) (test bgdy=481) 34.3 % 40.1-51.0 MEAN CORPUSCULAR VOLUME (BEAKER) (test udtq=560) 88.9 fL 79.0-92.2 MEAN CORPUSCULAR HEMOGLOBIN (BEAKER) (test 27.5 pg 25.7-32.2 ecjj=384) MEAN CORPUSCULAR HEMOGLOBIN CONC (BEAKER) (test 30.9 GM/DL 32.3-36.5 thpd=727) RED CELL DISTRIBUTION WIDTH (BEAKER) (test 16.2 % 11.6-14.4 lnwd=918) PLATELET COUNT (BEAKER) (test huuu=748) 103 K/CU MM 150-450 MEAN PLATELET VOLUME (BEAKER) (test ujct=912) 11.2 fL 9.4-12.4 NUCLEATED RED BLOOD CELLS (BEAKER) (test 0 /100 WBC 0-0 ryba=478) URINALYSIS W/ [id number] 00:09:00 Test Item Value Reference Range Comments COLOR (BEAKER) (test ghep=644) Yellow CLARITY (BEAKER) (test ioyf=223) Clear SPECIFIC GRAVITY UA (BEAKER) (test lbgm=197) 1.017 1.001-1.035 PH UA (BEAKER) (test veyg=984) 5.0 5.0-8.0 PROTEIN UA (BEAKER) (test rdnc=080) Negative Negative GLUCOSE UA (BEAKER) (test wwbj=389) Negative Negative KETONES UA (BEAKER) (test byrz=304) Negative Negative BILIRUBIN UA (BEAKER) (test ygth=110) Negative Negative BLOOD UA (BEAKER) (test sfin=766) Small Negative NITRITE UA (BEAKER) (test spjr=752) Negative Negative LEUKOCYTE ESTERASE UA (BEAKER) (test kiln=697) Negative Negative UROBILINOGEN UA (BEAKER) (test rzno=859) 0.2 mg/dL 0.2-1.0 RBC UA (BEAKER) (test wrne=951) 12 /HPF WBC UA (BEAKER) (test ixjx=171) 1 /HPF MUCUS (BEAKER) (test gvzr=9890) Rare AMORPHOUS CRYSTALS (BEAKER) (test rdro=2402) Occasional SOURCE(BEAKER) (test fnuz=6864) Urine, [place] RAD, CHEST, 1 VIEW, NON [id number] 21:46:00Reason for exam:->tavrShould this be performed at the bedside?->YesFINAL REPORT INDICATION: tavr COMPARISON: None. TECHNIQUE: Chest radiograph, single view, portable technique. 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 Intact median sternotomy wires noted. No pulmonary edema, aspiration, pneumothorax, or pleural effusion demonstrated. Signed: Vladislav Michael MDReport Verified Date/Time: 05/19/2018 21:46:23 Reading Location: [facility] C0[facility] Consult Reading Room POCT-LACTIC ACID, [id number] 21:21:00 Test Item Value Reference Range Comments POC-LACTIC ACID, ARTERIAL 1.5 mmol/L 0.4-1.3 TEST[address] (BEAKER) (test kang=4982) [place] [id number] POCT-BLOOD GASES, [id number] 21:21:00 Test Item Value Reference Range Comments TEMP, CELSIUS-POC (BEAKER) 37.1 (test qlaa=9178) FIO2-POC (BEAKER) (test 29 TESTED AT [address] vuox=3360) [place] [id number] PH, ARTERIAL-POC (BEAKER) 7.468 7.350-7.450 (test cabn=5238) PCO2, ARTERIAL-POC (BEAKER) 34.4 mm Hg 35.0-45.0 (test ykeu=9188) PO2, ARTERIAL-POC (BEAKER) 63.0 mm Hg 80.0-90.0 (test wejy=6514) SO2, ARTERIAL-POC (BEAKER) 93.0 % 96.0-97.0 (test qbdr=2192) HCO3, ARTERIAL-POC (BEAKER) 24.9 meq/L 21.0-29.0 (test fevn=2208) BASE EXCESS, ARTERIAL-POC 1.0 meq/L -2.0-3.0 (BEAKER) (test ymsz=8473) [id number] 21:21:00 Test Item Value Reference Range Comments POC-SODIUM (BEAKER) (test 137 meq/L 135-148 TESTED AT [address] pgru=8741) [place] [address] [id number] 21:21:00 Test Item Value Reference Range Comments POC-POTASSIUM (BEAKER) (test 3.6 meq/L 3.6-5.5 TESTED AT [address] qxmt=0328) [place] [address] [id number] 21:21:00 Test Item Value Reference Range Comments POC-GLUCOSE (BEAKER) (test 152 mg/dL 70-110 TESTED AT [address] oiiw=4548) [place] [address] POCT-CALCIUM [id number] 21:21:00 Test Item Value Reference Range Comments POC-CALCIUM IONIZED (BEAKER) 1.19 mmol/L 1.12-1.27 TESTED AT [address] (test imjr=1237) [place] [address] [id number] 21:21:00 Test Item Value Reference Range Comments POC-HEMATOCRIT (BEAKER) (test 32 % 40-50 TESTED AT [address] riey=9393) [place] [address] [id number] 21:21:00 Test Item Value Reference Range Comments POC-HEMOGLOBIN (BEAKER) 10.9 g/dL 13.0-16.8 TESTED AT [address] (test vxyx=2059) [place] [address]TESTED AT [place] [address] TROPONIN [id number] 20:56:00 Test Item Value Reference Range Comments TROPONIN I (BEAKER) (test zrlj=706) 0.73 ng/mL 0.00-0.03 Troponin I (TnI) levels [...] and persistent tachyarrhythmia.CREATINE KINASE (CK), TOTAL AND [id number] 20:49:00 Test Item Value Reference Range Comments CREATINE KINASE TOTAL (BEAKER) (test ncjy=413) 41 U/L 29-200 CREATINE KINASE-MB (BEAKER) (test spot=389) 3.5 ng/mL 0.0-6.6 CREATINE KINASE-MB INDEX (BEAKER) (test noxr=712) 8.5 % CK-MB Reference Range:<6.7 Normal6.7-10.0 Borderline>10.0 AbnormalCT, BRAIN/STROKE [id number] 20:46:00Reason for exam:-> altered mental statusFINAL REPORT [...] neurology housestaff on 05/19/2018 at 2040. Signed: Seipel, Micheal MDReport Verified Date/Time: 05/19/2018 20:46:09 Reading Location: [facility] Radiology [facility] [id number] 20: 42:00 Test Item Value Reference Range Comments SODIUM (BEAKER) (test 138 meq/L 136-145 ikya=675) POTASSIUM (BEAKER) (test 3.8 meq/L 3.5-5.1 ybax=830) CHLORIDE (BEAKER) (test 100 meq/L 98-107 zqlx=122) CO2 (BEAKER) (test 26 meq/L 22-29 ryav=266) BLOOD UREA NITROGEN 27 mg/dL 7-21 (BEAKER) (test rfot=474) CREATININE (BEAKER) (test 1.41 mg/dL 0.57-1.25 krtj=128) GLUCOSE RANDOM (BEAKER) 146 mg/dL 70-105 (test hnqg=079) CALCIUM (BEAKER) (test 8.7 mg/dL 8.4-10.2 tjto=592) EGFR (BEAKER) (test 48 mL/min/1.73 sq m ESTIMATED GFR IS NOT ujct=2449) ACCURATE CREATININE CLEARANCE IN PREDICTING GLOMERULAR FILTRATION RATE. ESTIMATED GFR IS NOT APPLICABLE FOR DIALYSIS PATIENTS. [id number] 20:32:00 Test Item Value Reference Range Comments PROTIME (BEAKER) (test hadq=182) 14.2 seconds 11.7-14.7 INR (BEAKER) (test aptl=419) 1.1 <=5.9 PARTIAL THROMBOPLASTIN TIME (BEAKER) (test 31.4 seconds 22.5-36.0 vmfc=778) RECOMMENDED COUMADIN/WARFARIN INR THERAPY RANGESSTANDARD DOSE: 2.0 - 3.0 Includes: PROPHYLAXIS forvenous thrombosis, systemic embolization; TREATMENT for venous thrombosis and/or pulmonary embolus.HIGH RISK: Target INR is 2.5-3.5 for patients with mechanical heart valves.CBC W/PLT COUNT & AUTO [id number] 20:30:00 Test Item Value Reference Range Comments WHITE BLOOD CELL COUNT (BEAKER) (test pmmv=049) 12.5 K/ L 3.5-10.5 RED BLOOD CELL COUNT (BEAKER) (test glbj=678) 3.77 M/ L 4.63-6.08 HEMOGLOBIN (BEAKER) (test eyvv=346) 10.4 GM/DL 13.7-17.5 HEMATOCRIT (BEAKER) (test miqw=237) 34.1 % 40.1-51.0 MEAN CORPUSCULAR VOLUME (BEAKER) (test xyre=076) 90.5 fL 79.0-92.2 MEAN CORPUSCULAR HEMOGLOBIN (BEAKER) (test 27.6 pg 25.7-32.2 jofn=019) MEAN CORPUSCULAR HEMOGLOBIN CONC (BEAKER) (test 30.5 GM/DL 32.3-36.5 gdpu=386) RED CELL DISTRIBUTION WIDTH (BEAKER) (test 16.4 % 11.6-14.4 sdyr=702) PLATELET COUNT (BEAKER) (test ftjg=888) 116 K/CU MM 150-450 MEAN PLATELET VOLUME (BEAKER) (test mlvq=385) 10.6 fL 9.4-12.4 NUCLEATED RED BLOOD CELLS (BEAKER) (test 0 /100 WBC 0-0 onrz=871) NEUTROPHILS RELATIVE PERCENT (BEAKER) (test 74 % qxix=970) LYMPHOCYTES RELATIVE PERCENT (BEAKER) (test 18 % dfau=512) MONOCYTES RELATIVE PERCENT (BEAKER) (test 6 % mcwp=991) EOSINOPHILS RELATIVE PERCENT (BEAKER) (test 1 % tgwq=006) BASOPHILS RELATIVE PERCENT (BEAKER) (test 0 % nuom=391) NEUTROPHILS ABSOLUTE COUNT (BEAKER) (test 9.27 K/ L 1.78-5.38 ogha=116) LYMPHOCYTES ABSOLUTE COUNT (BEAKER) (test 2.24 K/ L 1.32-3.57 rffo=500) MONOCYTES ABSOLUTE COUNT (BEAKER) (test 0.73 K/ L 0.30-0.82 cuvq=689) EOSINOPHILS ABSOLUTE COUNT (BEAKER) (test 0.13 K/ L 0.04-0.54 ldsl=151) BASOPHILS ABSOLUTE COUNT (BEAKER) (test 0.03 K/ L 0.01-0.08 uogd=551) IMMATURE GRANULOCYTES-RELATIVE PERCENT (BEAKER) 1 % 0-1 (test zgst=0186) POCT-GLUCOSE [id number] 20:01:00 Test Item Value Reference Range Comments POC-GLUCOSE METER (BEAKER) 182 mg/dL 70-110 TESTED AT [facility] [address] [facility] (test yvas=2232) [facility] [address] [id number] 09:06:00 Test Item Value Reference Range Comments ACTIVATED CLOTTING TIME 329 sec TESTED AT [facility] [address] [facility] (BEAKER) (test xdez=244) [facility] [address] B-TYPE NATRIURETIC FACTOR (BNP)2018-04-21 15:09:00 Test Item Value Reference Range Comments B-TYPE NATRIURETIC PEPTIDE (BEAKER) (test 785 pg/mL 0-100 hdqe=832) COMPREHENSIVE METABOLIC [id number] 15:02:00 Test Item Value Reference Range Comments TOTAL PROTEIN (BEAKER) 6.9 gm/dL 6.0-8.3 (test agjo=079) ALBUMIN (BEAKER) (test 4.0 g/dL 3.5-5.0 ljsp=0459) ALKALINE PHOSPHATASE 42 U/L 40-150 (BEAKER) (test sqbf=386) BILIRUBIN TOTAL (BEAKER) 0.5 mg/dL 0.2-1.2 (test uaho=829) SODIUM (BEAKER) (test 135 meq/L 136-145 pvfh=444) POTASSIUM (BEAKER) (test 4.3 meq/L 3.5-5.1 ocoh=255) CHLORIDE (BEAKER) (test 99 meq/L 98-107 gwdt=203) CO2 (BEAKER) (test 25 meq/L 22-29 cqif=829) BLOOD UREA NITROGEN 31 mg/dL 7-21 (BEAKER) (test eldh=897) CREATININE (BEAKER) (test 1.39 mg/dL 0.57-1.25 vxgg=785) GLUCOSE RANDOM (BEAKER) 194 mg/dL 70-105 (test tpmu=381) CALCIUM (BEAKER) (test 9.7 mg/dL 8.4-10.2 udnj=452) AST (SGOT) (BEAKER) (test 12 U/L 5-34 yhns=543) ALT (SGPT) (BEAKER) (test 15 U/L 6-55 mbyp=974) EGFR (BEAKER) (test 48 mL/min/1.73 sq m ESTIMATED GFR IS NOT gadx=4334) ACCURATE CREATININE CLEARANCE IN PREDICTING GLOMERULAR FILTRATION RATE. ESTIMATED GFR IS NOT APPLICABLE FOR DIALYSIS PATIENTS. PROTHROMBIN TIME/[id number] 14:58:00 Test Item Value Reference Range Comments PROTIME (BEAKER) (test slev=840) 12.8 seconds 11.7-14.7 INR (BEAKER) (test sggo=059) 1.0 <=5.9 RECOMMENDED COUMADIN/WARFARIN INR THERAPY RANGESSTANDARD DOSE: 2.0 - 3.0 Includes: PROPHYLAXIS forvenous thrombosis, systemic embolization; TREATMENT for venous thrombosis and/or pulmonary embolus.HIGH RISK: Target INR is 2.5-3.5 for patients with mechanical heart valves.CBC W/PLT COUNT & AUTO [id number] 14:45:00 Test Item Value Reference Range Comments WHITE BLOOD CELL COUNT (BEAKER) (test kpux=212) 10.3 K/ L 3.5-10.5 RED BLOOD CELL COUNT (BEAKER) (test wozj=655) 4.35 M/ L 4.63-6.08 HEMOGLOBIN (BEAKER) (test naqd=571) 11.9 GM/DL 13.7-17.5 HEMATOCRIT (BEAKER) (test kjob=943) 37.6 % 40.1-51.0 MEAN CORPUSCULAR VOLUME (BEAKER) (test lwaq=791) 86.4 fL 79.0-92.2 MEAN CORPUSCULAR HEMOGLOBIN (BEAKER) (test 27.4 pg 25.7-32.2 gnkl=590) MEAN CORPUSCULAR HEMOGLOBIN CONC (BEAKER) (test 31.6 GM/DL 32.3-36.5 ieya=102) RED CELL DISTRIBUTION WIDTH (BEAKER) (test 16.5 % 11.6-14.4 jpuv=190) PLATELET COUNT (BEAKER) (test ypuo=965) 158 K/CU MM 150-450 MEAN PLATELET VOLUME (BEAKER) (test ndkw=888) 11.1 fL 9.4-12.4 NUCLEATED RED BLOOD CELLS (BEAKER) (test 0 /100 WBC 0-0 dozn=483) NEUTROPHILS RELATIVE PERCENT (BEAKER) (test 73 % wyxn=841) LYMPHOCYTES RELATIVE PERCENT (BEAKER) (test 19 % wyey=948) MONOCYTES RELATIVE PERCENT (BEAKER) (test 6 % olrf=284) EOSINOPHILS RELATIVE PERCENT (BEAKER) (test 1 % xxjl=358) BASOPHILS RELATIVE PERCENT (BEAKER) (test 0 % wbuj=294) NEUTROPHILS ABSOLUTE COUNT (BEAKER) (test 7.54 K/ L 1.78-5.38 oyxr=558) LYMPHOCYTES ABSOLUTE COUNT (BEAKER) (test 1.96 K/ L 1.32-3.57 qtgp=471) MONOCYTES ABSOLUTE COUNT (BEAKER) (test 0.61 K/ L 0.30-0.82 umhs=195) EOSINOPHILS ABSOLUTE COUNT (BEAKER) (test 0.09 K/ L 0.04-0.54 oksx=995) BASOPHILS ABSOLUTE COUNT (BEAKER) (test 0.03 K/ L 0.01-0.08 ksji=123) IMMATURE GRANULOCYTES-RELATIVE PERCENT (BEAKER) 1 % 0-1 (test yqpc=3370) CT, CTA [id number] 12:54:00Addendum BeginsREPORT STATUS:A Addendum: I agree with the previously described non vascular findings.. Additionally, the lungs demonstrate fibrotic changes which are most pronounced in the bilateral bases. Biapical pleural-parenchymal scarring is present. Signed: Dejon BlandMDReport Verified Date/Time: 04/20/2018 12:54: 28 Reading Location: [place] [address] Angio Body Reading RoomAddendum EndsFINAL REPORT CT [...] 5. An addendum will be dictated bythe Health Safety Engineer Radiologist regarding the nonvascular findings. Signed: Puneet Espinoza Verified Date/Time: 14:19:03 Reading Location: [place] [address], CTA, [id number] 12:54:00Addendum BeginsREPORT STATUS:A Addendum: I agree with the previously described non vascular findings.. Additionally, the lungs demonstrate fibrotic changes which are most pronounced in the bilateral bases. Biapical pleural-parenchymal scarring is present. Signed : Dejon BlandMDReport Verified Date/Time: 04/20/2018 12:54:28 Reading Location: [place] [address] Angio Body Reading RoomAddendum EndsFINAL REPORT CT [...] 5. An addendum will be dictated bythe Health Safety Engineer Radiologist regarding the nonvascular findings. Signed: Puneet Espinoza MDReport Verified Date/Time: 14:19:03 Reading Location: [place] [address] Cardiology MRI POCT- [id number] 09:37:00 Test Item Value Reference Range Comments POC-CREATININE ([employer]) 1.3 mg/dL 0.6-1.3 TESTED AT [address] (test [id number]) [facility] [id number] POC-EGFR ([employer]) (test 52 mL/min/1.73M2 stto=1418)
[2019-03-19 12:49] LABS: Absolute Lymphocytes (CBC) 2.2 K/uL (0.7-4.9); Absolute Monocytes 0.6 K/uL (0.1-1.3); Absolute Neutrophil 10.3 K/uL (1.8-8.0); Basophils % 0.3 % (0-1.3); Eosinophils % 0.5 % (0-4.4); Lymphocytes % 16.3 % (15.3-44.8); MPV 9.1 fL (7.6-11.3); Monocytes % 4.6 % (3.3-12.3)
[2019-03-19 13:02] LABS: Albumin 3.1 g/dL (3.4-5.0); Bilirubin Direct 0.1 mg/dL (0-0.2); Bilirubin Total 0.5 mg/dL (0.2-1.0); Magnesium 2.2 mg/dL (1.8-2.4); Potassium 3.9 mmol/L (3.5-5.1); Protein, Total 6.9 g/dL (6.4-8.2); Troponin (Emerg Dept Use Only) 0.02 ng/mL (0.0-0.045)
[2019-03-19 13:04] LABS: Protime INR 3.3
--- NOTE | 2019-03-19 13:12 | RAD REPORT ---
EXAM DESCRIPTION: RAD - Chest Single View - 03/19/2019 12:43 pm CLINICAL HISTORY: Weakness, shortness of breath COMPARISON: September 2018 TECHNIQUE: AP portable chest image was obtained 1235 hours . FINDINGS: Chronic interstitial lung pattern seen. No superimposed failure, infiltrate or mass. Nobles otomy wires are in place. Heart and vasculature are normal. No measurable pleural effusion and no pne umothorax. No acute bony abnormality seen. No acute aortic findings suspected. IMPRESSION: No acute cardiopulmonary process. Chronic interstitial lung pattern similar to comparison.
--- NOTE | 2019-03-19 13:50 | ER ---
Nurse's Notes [facility] Name: Victor Hugo Damon Age: 88 yrs Sex: Male : 1930 Arrival Date: 03/19/2019 Time: 12:10 Bed 6 Private MD: Diagnosis: Hemorrhoids and perianal venous thrombosis-bleeding controlled Presentation: 03/19 12:11 Presenting complaint: EMS states: Pt from [facility], caregiver reports that pt had ph bright red spotting in brief and stool x 1 week, today there was a large amount of bright red blood in toilet so called EMS, pt has hx of hemorrhoids and takes Warfarin. Transition of care: patient was not received from another setting of care. Onset of symptoms was March 19, 2019. Risk Assessment: Do you want to hurt yourself or someone else? Patient reports no desire to harm self or others. Initial Sepsis Screen: Does the patient meet any 2 criteria? No. Patient's initial sepsis screen is negative. Does the patient have a suspected source of infection? No. Patient's initial sepsis screen is negative. Care prior to arrival: None. 12:11 Method Of Arrival: EMS: [facility] ph 12:11 Acuity: ESTHELA 3 ph Historical: - Allergies: 12:18 PENICILLINS; iw - Home Meds: 12:18 gabapentin 300 mg oral cap nightly [Active]; Gavilax 17 gram oral pwpk 1 packet once iw daily [Active]; melatonin 3 mg Oral tab nightly [Active]; I-Kary 1,000 unit-200 mg-60 unit-2 mg oral tab twice a day [Active]; Myrbetriq 25 mg oral Tb24 1 tab once daily [Active]; nifedipine 90 mg oral TbER once daily [Active]; prednisone 20 mg Oral tab once daily [Active]; propranolol 80 mg Oral Cs24 1 cap once daily [Active]; torsemide 20 mg oral tab 1 tab once daily [Active]; tramadol 50 mg Oral tab twice a day [Active]; warfarin 4 mg Oral tab 1 tab once daily [Active]; bisacodyl 5 mg Oral TbEC as needed for Constipation [Active]; acetaminophen 325 mg Oral tab 2 tabs every 4 hours for Pain [Active]; - PMHx: 12:18 Atrial Fib; CAD; CVA; Diabetes - NIDDM; Hypertension; iw - PSHx: 12:18 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 - Social history:: Smoking status: Patient/guardian denies using tobacco. - Ebola Screening: : No symptoms or risks identified at this time. Screenin:17 Abuse screen: Denies threats or abuse. Denies injuries from another. Nutritional ph screening: No deficits noted. Tuberculosis screening: No symptoms or risk factors identified. Fall Risk None identified. Assessment: 12:17 General: Appears in no apparent distress. comfortable, well groomed, Behavior is calm, ph cooperative, appropriate for age, Denies fever, feeling ill. Pain: Complains of pain in low back area Pain began " 2 or 3 months ago.". Neuro: Level of Consciousness is awake, alert, obeys commands, Oriented to person, place, time, situation. Cardiovascular: Denies chest pain, lightheadedness, nausea, shortness of breath, Capillary refill < 3 seconds in bilateral fingers Patient's skin is warm and dry. Respiratory: Airway is patent Respiratory effort is even, unlabored, Respiratory pattern is regular, symmetrical, Denies shortness of breath. GI: Abdomen is flat, non-distended, Bowel sounds present X 4 quads. Reports constipation, rectal bleeding, bloody stool, Patient currently denies abdominal pain, diarrhea, nausea, vomiting. Derm: Skin is fragile, is thin, Skin is pink, warm \\T\\ dry. Bruising that is dark purple, on charles arms. Musculoskeletal: Circulation, motion, and sensation intact. Range of motion: intact in all extremities. 12:38 Reassessment: rectal exam reveals external Hemorrhoids with thrombosed segment. la1 13:51 Reassessment: Patient appears in no apparent distress at this time. Patient and/or ph family updated on plan of care and expected duration. Pain level reassessed. Patient is alert, oriented x 3, equal unlabored respirations, skin warm/dry/pink. Pt resting quietly, awaiting CT scan, VSS. 14:50 Reassessment: Patient appears in no apparent distress at this time. Patient and/or ph family updated on plan of care and expected duration. Pain level reassessed. Patient is alert, oriented x 3, equal unlabored respirations, skin warm/dry/pink. Report called to [facility], pt taken back to facility by family. Vital Signs: 12:15 BP 154 / 68; Pulse 75; Resp 18; Temp 97.8; Pulse Ox 98% on R/A; Weight 74.84 kg; Height ph 6 ft. 0 in. (182.88 cm); Pain 0/10; 13:50 BP 127 / 53; Pulse 69; Resp 16; Pulse Ox 99% on R/A; ph 15:02 BP 134 / 68; Pulse 64; Resp 18; Temp 98.0; Pulse Ox 99% on R/A; ph 12:15 Body Mass Index 22.38 (74.84 kg, 182.88 cm) ph ED Course: 12:10 Patient arrived in ED. iw 12:11 Joan Puckett, LOLLY is Primary Nurse. ph 12:15 Triage completed. ph 12:17 Arm band placed on. ph 12:19 Arabella Albert F[facility]-C [facility]. snw 12:19 Munir Garibay MD is Attending Physician. snw 12:23 Patient has correct armband on for positive identification. Bed in low position. Call ph light in reach. Side rails up X 1. slitter and cutter operator on. Pulse ox on. NIBP on. Door closed. Noise minimized. Warm blanket given. 12:37 No provider procedures requiring assistance completed. Inserted saline lock: 20 gauge la1 in left antecubital area, using aseptic technique. Blood collected. 12:40 XRAY Chest (1 view) In Process Unspecified. EDMS 12:47 EKG done, by ED staff, reviewed by Arabella BEDOLLA. 3 15:01 IV discontinued, intact, bleeding controlled, No redness/swelling at site. Pressure ph dressing applied. Administered Medications: No medications were administered Outcome: 13:50 Discharge ordered by . snw 15:01 Discharged to home via wheelchair, with family. ph 15:01 Condition: good 15:01 Discharge instructions given to patient, family, intermediate, Instructed on discharge instructions, follow up and referral plans. medication usage, Demonstrated understanding of instructions, follow-up care, medications, Prescriptions given X 1. 15:03 Patient left the ED. ph Signatures: Dispatcher [employer] EDKY Arabella Albert FNP-C FNP-Vianneyw Eleonora Coombs, RN Billy Oneal RN RN la1 Joan Puckett RN RN Pamela Price 3 Corrections: (The following items were deleted from the chart) :24 12:17 Pain: Denies pain. [facility]
--- NOTE | 2019-03-19 13:51 | EDPHYS ---
Physician Documentation [facility] Name: Victor Hugo Damon Age: 88 yrs Sex: Male : 1930 Arrival Date: 03/19/2019 Time: 12:10 Bed 6 Private MD: ED Physician Munir Garibay HPI: 03/19 12:31 This 88 yrs old Male presents to ER via EMS with complaints of bleeding snw hemorrhoids. 12:31 The patient presents to the emergency department with bleeding from the rectum/anus, snw that is moderate. Onset: The symptoms/episode began/occurred 1 week(s) ago, and became worse this morning. Context: the patient has a known history of hemorrhoids. Associate signs and symptoms: The patient has no apparent associated signs or symptoms. The patient has experienced similar episodes in the past, chronically. It is unknown whether or not the patient has recently seen a physician. sees Dr. Stahl. Pt is at [facility] and states he doesn't need to be at the hospital and feels fine. Pt appears pale. Historical: - Allergies: 12:18 PENICILLINS; iw - Home Meds: 12:18 gabapentin 300 mg oral cap nightly [Active]; Gavilax 17 gram oral pwpk 1 packet once iw daily [Active]; melatonin 3 mg Oral tab nightly [Active]; I-Kary 1,000 unit-200 mg-60 unit-2 mg oral tab twice a day [Active]; Myrbetriq 25 mg oral Tb24 1 tab once daily [Active]; nifedipine 90 mg oral TbER once daily [Active]; prednisone 20 mg Oral tab once daily [Active]; propranolol 80 mg Oral Cs24 1 cap once daily [Active]; torsemide 20 mg oral tab 1 tab once daily [Active]; tramadol 50 mg Oral tab twice a day [Active]; warfarin 4 mg Oral tab 1 tab once daily [Active]; bisacodyl 5 mg Oral TbEC as needed for Constipation [Active]; acetaminophen 325 mg Oral tab 2 tabs every 4 hours for Pain [Active]; - PMHx: 12:18 Atrial Fib; CAD; CVA; Diabetes - NIDDM; Hypertension; iw - PSHx: 12:18 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 - Social history:: Smoking status: Patient/guardian denies using tobacco. - Ebola Screening: : No symptoms or risks identified at this time. ROS: 12:31 Constitutional: Negative for fever, chills, and weight loss, Eyes: Negative for injury, snw pain, redness, and discharge, ENT: Negative for injury, pain, and discharge, Neck: Negative for injury, pain, and swelling, Cardiovascular: Negative for chest pain, palpitations, and edema, Respiratory: Negative for shortness of breath, cough, wheezing, and pleuritic chest pain, Abdomen/GI: Negative for abdominal pain, nausea, vomiting, diarrhea, and constipation, Back: Negative for injury and pain, MS/Extremity: Negative for injury and deformity, Skin: Negative for injury, rash, and discoloration, Neuro: Negative for headache, weakness, numbness, tingling, and seizure. 12:31 : Negative for injury, bleeding, discharge, and swelling. Exam: 12:31 Head/Face: Normocephalic, atraumatic. Eyes: Pupils equal round and reactive to light, snw extra-ocular motions intact. Lids and lashes normal. Conjunctiva and sclera are non-icteric and not injected. Cornea within normal limits. Periorbital areas with no swelling, redness, or edema. ENT: Nares patent. No nasal discharge, no septal abnormalities noted. Tympanic membranes are normal and external auditory canals are clear. Oropharynx with no redness, swelling, or masses, exudates, or evidence of obstruction, uvula midline. Mucous membranes moist. Neck: Trachea midline, no thyromegaly or masses palpated, and no cervical lymphadenopathy. Supple, full range of motion without nuchal rigidity, or vertebral point tenderness. No Meningismus. Chest/axilla: Normal chest wall appearance and motion. Nontender with no deformity. No lesions are appreciated. Cardiovascular: Regular rate and rhythm with a normal S1 and S2. No gallops, murmurs, or rubs. Normal PMI, no JVD. No pulse deficits. Respiratory: Lungs have equal breath sounds bilaterally, clear to auscultation and percussion. No rales, rhonchi or wheezes noted. No increased work of breathing, no retractions or nasal flaring. Back: No spinal tenderness. No costovertebral tenderness. Full range of motion. Skin: Warm, dry with normal turgor. Normal color with no rashes, no lesions, and no evidence of cellulitis. MS/ Extremity: Pulses equal, no cyanosis. Neurovascular intact. Full, normal range of motion. Neuro: Awake and alert, GCS 15, oriented to person, place, time, and situation. Cranial nerves II-XII grossly intact. Motor strength 5/5 in all extremities. Sensory grossly intact. Cerebellar exam normal. Normal gait. Psych: Awake, alert, with orientation to person, place and time. Behavior, mood, and affect are within normal limits. 12:31 Constitutional: The patient appears alert, awake, comfortable, pale. 12:31 Abdomen/GI: Inspection: abdomen appears normal, Bowel sounds: normal, Palpation: abdomen is soft and non-tender, in all quadrants, Rectal exam: hemorrhoid(s), external, with associated bleeding, with thrombosis. Vital Signs: 12:15 BP 154 / 68; Pulse 75; Resp 18; Temp 97.8; Pulse Ox 98% on R/A; Weight 74.84 kg; Height ph 6 ft. 0 in. (182.88 cm); Pain 0/10; 13:50 BP 127 / 53; Pulse 69; Resp 16; Pulse Ox 99% on R/A; ph 15:02 BP 134 / 68; Pulse 64; Resp 18; Temp 98.0; Pulse Ox 99% on R/A; ph 12:15 Body Mass Index 22.38 (74.84 kg, 182.88 cm) ph MDM: 12:21 Patient medically screened. snw 13:52 Data reviewed: vital signs, nurses notes. Data interpreted: Pulse oximetry: on room air snw is 99 %. Interpretation: normal. Counseling: I had a detailed discussion with the patient and/or guardian regarding: the historical points, exam findings, and any diagnostic results supporting the discharge/admit diagnosis, lab results, radiology results, the need for outpatient follow up, to return to the emergency department if symptoms worsen or persist or if there are any questions or concerns that arise at home. Special discussion: Based on the history and exam findings, there is no indication for further emergent testing or inpatient evaluation. I discussed with the patient/guardian the need to see the pocket setter for further evaluation of the symptoms. I discussed with the patient/guardian the need to see the general surgeon for further evaluation of the symptoms. I discussed with the patient/guardian the need to see the primary care provider for further evaluation of the symptoms. 13:53 ED course: Pt without complaint, pt states this problem is not new for him. INR snw elevated to 3.3 but stable, pt has multiple medical issues that necessitate continued coumadin and maintenance of this elevated INR. Bleeding to anal area controlled, pt without c/o pain, pressure, fever, or any new complaints. Recommend f/u with Dr. Stahl.. 03/19 12:20 Order name: Basic Metabolic Panel; Complete Time: 13:17 snw 03/19 12:20 Order name: CBC with Diff; Complete Time: 13:17 snw 03/19 12:20 Order name: LFT's; Complete Time: 13:17 snw 03/19 12:20 Order name: Magnesium; Complete Time: 13: snw 03/19 12:20 Order name: NT PRO-BNP; Complete Time: 13:17 03/19 12:20 Order name: PT-INR; Complete Time: 13:17 w 03/19 12:20 Order name: Troponin (emerg Dept Use Only); Complete Time: 13:17 snw 03/19 12:20 Order name: XRAY Chest (1 view); Complete Time: 13:17 snw 03/19 12:20 Order name: EKG; Complete Time: 12:21 w 03/19 12:20 Order name: Cardiac monitoring; Complete Time: 12:29 03/19 12:20 Order name: EKG - Nurse/Tech; Complete Time: 12:47 03/19 12:20 Order name: IV Saline Lock; Complete Time: 12:29 w 03/19 12:20 Order name: Labs collected and sent; Complete Time: 12:29 w 03/19 12:20 Order name: O2 Per Protocol; Complete Time: 12:29 w 03/19 12:20 Order name: O2 Sat Monitoring; Complete Time: 12:29 snw Administered Medications: No medications were administered Disposition: 16:26 Co-signature as Attending Physician, Munir Garibay MD I agree with the assessment and kdr plan of care. Disposition: 03/19/19 13:50 Discharged to Home. Impression: Hemorrhoids and perianal venous thrombosis - bleeding controlled. - Condition is Stable. - Discharge Instructions: Hemorrhoids, How to Take a Sitz Bath, Surgical Procedures for Hemorrhoids, Nonsurgical Procedures for Hemorrhoids. - Prescriptions for Proctofoam HC 1- 1 % Rectal foam - apply 1 application by TOPICAL route 3 times per day; 1 Cartridge. - Medication Reconciliation Form, Thank You Letter, Antibiotic Education, Prescription Opioid Use form. - Follow up: Private Physician; When: 2 - 3 days; Reason: Recheck today's complaints, Continuance of care, Re-evaluation by your physician. Follow up: Emergency Department; When: As needed; Reason: Worsening of condition. Signatures: Dispatcher [employer] [facility] Munir Garibay MD MD kdr Arabella Albert, SWING GRINDER-C SWING GRINDER-Csnw Eleonora Coombs, RN RN iw Joan Puckett RN RN ph Corrections: (The following items were deleted from the chart) 14:10 12:21 Abdomen Pelvis W Con+CT.RAD.BRZ ordered. [facility] 15:03 13:50 03/19/2019 13:50 Discharged to Home. Impression: Hemorrhoids and perianal venous ph thrombosis - bleeding controlled. Condition is Stable. Forms are Medication Reconciliation Form, Thank You Letter, Antibiotic Education, Prescription Opioid Use. Follow up: Private Physician; When: 2 - 3 days; Reason: Recheck today's complaints, Continuance of care, Re-evaluation by your physician. Follow up: Emergency Department; When: As needed; Reason: Worsening of condition. snw
[2019-03-19 15:10] VITALS: O2SAT 99
[2019-03-19 15:11] VITALS: BP 134/68; TEMP 98
--- NOTE | 2019-03-21 07:50 | EKG ---
Test Date: 2019-03-19 Test Time: 12:42:07 Title Search Manager: ZEYAD MEASUREMENT RESULTS: Intervals: Rate: 69 AK: 140 QRSD: 84 QT: 436 QTc: 467 [place]: P: 39 AK: 140 QRS: 26 T: 169 INTERPRETIVE STATEMENTS: Sinus rhythm with premature atrial complexes Possible Left atrial enlargement ST & T wave abnormality, consider inferolateral ischemia Prolonged QT Abnormal ECG Compared to ECG 07/11/2018 22:40:59 Possible ischemia now present Prolonged QT interval now present ST (T wave) deviation still present Electronically Signed On 03-21-19 07:49:00 CDT by Too Vallejo
== END 2019-03-19 15:03 | disposition home or self-care (01) ==
LOC: ER 12:07
DX: K64.5 Perianal venous thrombosis (principal); I48.91 Unspecified atrial fibrillation; E11.9 Type 2 diabetes mellitus without complications; I10 Essential (primary) hypertension; Z86.73 Personal history of transient ischemic attack (TIA), and cerebral infarction without residual deficits
CPT/HCPCS: 36415; 71045; 80048; 80076; 83735; 83880; 84484; 85025; 85610; 93005; 99284

== ENCOUNTER 2019-04-07 09:19 | Emergency (ER) | payer OTHER ==
--- OUTSIDE RECORDS SUMMARY | 2019-04-07 09:24 | XMS REPORT | Clinical Summary ---
:1930 Author Organization [facility] Address [address] [place] [address] Care Team Providers Name Role Phone Pcp, [...] 05/19/2018 Surgery Cristobal Moreno TAVR / CHEO [facility] - MD Nelson PROC ONLY 05/19/2018 Anesthesia Event Johnson Peralta MD 05/19/2018 - Hospital Encounter Cardiology Cristobal Moreno Advanced age; 05/30/2018 MD Nelson Severe aortic stenosis 05/19/2018 Orders Only General Internal Medicine 04/21/2018 Hospital Encounter Cristobal Moreno MD 04/21/2018 Office Visit Cardiology Joseph Tsai Hyperlipidemia, unspecified hyperlipidemia type; MD Barrett PVD (peripheral vascular disease) ([facility]); Stage 2 chronic kidney disease 04/19/2018 Office Visit Cardiology Cipriano, Severe aortic stenosis; Sudhir Claire, 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..] 05/24/2018 6:00 AM CDT Plan of Treatment Not on file Implants Implanted Type 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 Device Shelf Model / Identifier Expiration Date Serial / Lot Valve Heart Pay[place] 3 26mm [id number] - [id number] Valves PASTRANA L[employer]CI [id number] / Implanted: Qty: 1 on 05/19/2018 by Cristobal Moreno MD [id number] / Procedures Procedure Name Priority Date/Time Associated [...] 394 ms QTC Calculation(Bazett) 454 ms P [place] 23 degrees R [place] 29 degrees T [place] 194 degrees Sinus rhythm with marked sinus [...] 388 ms QTC Calculation(Bazett) 450 ms P [place] 52 degrees R [place] 28 degrees T [place] 136 degrees Normal sinus rhythm with sinus [...] 376 ms QTC Calculation(Bazett) 444 ms P [place] 56 degrees R [place] 23 degrees T [place] 138 degrees Sinus rhythm with Premature atrial [...] 380 ms QTC Calculation(Bazett) 452 ms R [place] 188 degrees T [place] 33 degrees Normal sinus rhythm with sinus [...] TAVR (CV ANES) DEVANTE Special Needs SCOT [phone]/SHAWN TRANSFUSION SERVICE 04/22/2018 5:42 PM REPORT - [...] procedure are in the results section. after 04/06/2018 Results RHYTHM STRIP - SCAN (06/01/2018 8:10 AM CDT) Narrative Performed At POC-Glucose meter (05/30/2018 8:21 AM CDT)Only the most recent of32 resultswithin the time period is included. POC-Glucose Meter 112 (H)Comment: TESTED AT 70 - 110 mg/dL [place] [phone] Specimen Blood Performing Organization Address [facility] [place] [address] [phone] [place] Prothrombin time/INR (05/30/2018 4:31 AM CDT)Only the most recent of8 resultswithin the time period is included. Protime 22.3 (H) 11.7 - 14.7 seconds [facility] INR 2.0 <=5.9 [facility] Specimen Blood Narrative Performed At [facility] RECOMMENDED COUMADIN/WARFARIN INR THERAPY RANGES STANDARD DOSE: 2.0 - 3.0 Includes: PROPHYLAXIS for venous thrombosis, systemic embolization; TREATMENT for venous thrombosis and/or pulmonary embolus. HIGH RISK: Target INR is 2.5-3.5 for patients with mechanical heart valves. Performing Organization Address [facility] Phone Number [address] [address] [place] CBC (Hemogram only) (05/30/2018 4:31 AM CDT)Only the most recent of8 resultswithin the time period is included. WBC 10.0 3.5 - 10.5 K/L [facility] RBC 3.44 (L) 4.63 - 6.08 M/L [facility] Hemoglobin 9.6 (L) 13.7 - 17.5 GM/DL [facility] Hematocrit 30.8 (L) 40.1 - 51.0 % [facility] MCV 89.5 79.0 - 92.2 fL [facility] MCH 27.9 25.7 - 32.2 pg [facility] MCHC 31.2 (L) 32.3 - 36.5 GM/DL [facility] RDW 16.1 (H) 11.6 - 14.4 % [facility] Platelets 169 150 - 450 K/CU MM [facility] MPV 11.5 9.4 - 12.4 fL [facility] nRBC 0 0 - 0 /100 WBC [facility] Specimen Blood Performing Organization Address City/[facility]/Zipcode Phone Number [address] [address] CENTER Basic Metabolic Panel (05/30/2018 4:31 AM CDT)Only the most recent of11 resultswithin the time period is included. Sodium 136 136 - 145 meq/L [facility] Potassium 3.7 3.5 - 5.1 meq/L [facility] Chloride 101 98 - 107 meq/L [facility] CO2 26 22 - 29 meq/L [facility] BUN 28 (H) 7 - 21 mg/dL [facility] Creatinine 1.31 (H) 0.57 - 1.25 mg/dL [facility] Glucose 74 70 - 105 mg/dL [facility] Calcium 8.9 8.4 - 10.2 mg/dL [facility] EGFR 52Comment: ESTIMATED GFR IS mL/min/1.73 sq m [facility] NOT ACCURATE CREATININE [facility] CENTER CLEARANCE IN PREDICTING GLOMERULAR FILTRATION RATE. ESTIMATED GFR IS NOT APPLICABLE FOR DIALYSIS PATIENTS. Specimen Blood Performing Organization Address City/State/Zipcode Phone Number [address] [address] CENTER Magnesium (05/28/2018 5:53 AM CDT)Only the most recent of9 resultswithin the time period is included. Magnesium 2.3 1.6 - 2.6 mg/dL [facility] Specimen Blood Performing Organization Address City/State/Zipcode Phone Number [facility] [address] [place] [address] CENTER Transfuse Leuko-Red RBC (05/26/2018 1:11 PM CDT)Only the most recent of2 resultswithin the time period is included.CBC with platelet count + automated diff (05/26/2018 6:27 AM CDT)Only the most recent of3 resultswithin the time period is included. WBC 12.2 (H) 3.5 - 10.5 K/L [facility] RBC 3.70 (L) 4.63 - 6.08 M/L [facility] Hemoglobin 10.6 (L) 13.7 - 17.5 GM/DL [facility] Hematocrit 33.2 (L) 40.1 - 51.0 % [facility] MCV 89.7 79.0 - 92.2 fL [facility] MCH 28.6 25.7 - 32.2 pg [facility] MCHC 31.9 (L) 32.3 - 36.5 GM/DL [facility] RDW 15.9 (H) 11.6 - 14.4 % [facility] Platelets 137 (L) 150 - 450 K/CU MM [facility] MPV 11.1 9.4 - 12.4 fL [facility] nRBC 0 0 - 0 /100 WBC [facility] % Neutros 54 % [facility] % Lymphs 33 % [facility] % Monos 8 % [facility] % Eos 3 % [facility] % Baso 0 % [facility] # Neutros 6.59 (H) 1.78 - 5.38 K/L [facility] # Lymphs 3.96 (H) 1.32 - 3.57 K/L [facility] # Monos 1.00 (H) 0.30 - 0.82 K/L [facility] # Eos 0.30 0.04 - 0.54 K/L [facility] # Baso 0.05 0.01 - 0.08 K/L [facility] Immature Granulocytes-Relative 2 (H) 0 - 1 % [facility] Specimen Blood Performing Organization Address City/State/Zipcode Phone Number [facility] [address] [place] [address] brain without IV contrast (05/25/2018 7:04 PM CDT)Only the most recent of2 resultswithin the time period is included. Specimen Narrative Performed At FINAL REPORT [facility] CT head without contrast 05/25/2018 7:14 PM [...] MD Report Verified Date/Time:05/25/2018 19:17:21 Reading Location: [facility] Radiology Reading Room Procedure Note Interface, [...] Report Verified Date/Time: 05/25/2018 19:17:21 Reading Location: [facility] Radiology Reading Room Performing Organization Address City/State/Zipcode Phone Number C-sam RIS TRANSFUSION SERVICE REPORT - SCAN (05/25/2018 6:00 PM CDT)Only the most recent of4 resultswithin the time period is included. Narrative Performed At Prepare Leuko-Red RBC (05/24/2018 11:54 PM CDT) CROSSMATCH COMPATIBLE SAFETRACE TX Unit ABO O Pos SAFETRACE TX UNIT NUMBER [id number] SAFETRACE TX Status TRANSFUSED SAFETRACE TX Blood Bank Product RED BLOOD CELLS SAFETRACE TX PRODUCT CODE [id number] [facility] [place] Specimen Other Performing Organization Address City/[facility] Phone Number [facility] [place] Type and screen, automated (05/23/2018 11:30 AM CDT)Only the most recent of2 resultswithin the time period is included. ABO/RH AUTOMATED (BEAKER) O POSITIVE [facility] Ab Scrn NEGATIVE [facility] Specimen Blood Performing Organization Address [facility] Phone Number [address] [address] aPTT (05/23/2018 6:15 AM CDT)Only the most recent of6 resultswithin the time period is included. PTT 94.3 (H) 22.5 - 36.0 seconds [facility] Specimen Blood Performing Organization Address [facility] Phone Number [address] [address] C[place] Iron, TIBC, % sat. (without ferritin) (05/23/2018 5:25 AM CDT) Iron 63 40 - 160 ug/dL [facility] TIBC 224 (L) 250 - 450 ug/dL [facility] Iron % Saturation 28 20 - 55 % [facility] Specimen Blood Performing Organization Address [facility] Phone Number [address] [address] CENTER Ferritin (05/23/2018 5:25 AM CDT) Ferritin 435 (H) 5 - 275 ng/mL [facility] Specimen Blood Performing Organization Address [facility] Phone Number [address] [address] CENTER ECG 12 lead (05/22/2018 1:56 PM CDT)Only the most recent of4 resultswithin the time period is included. Specimen Narrative Performed At Ventricular Rate 80 BPM GE MUSE Atrial Rate 80 BPM P-R Interval 164 ms QRS Duration 100 ms Q-T Interval 394 ms QTC Calculation(Bazett) 454 ms P [place] 23 degrees R [place] 29 degrees T [place] 194 degrees Sinus rhythm with marked sinus [...] 394 ms QTC Calculation(Bazett) 454 ms P [place] 23 degrees R [place] 29 degrees T [place] 194 degrees Sinus rhythm with marked sinus arrhythmia ST & T wave abnormality, consider inferolateral ischemia Abnormal ECG When compared with ECG of 20-MAY-2018 06:03, ST no longer depressed in Lateral leads T wave inversion now evident in Inferior leads T wave inversion now evident in Anterior leads Confirmed by MD TERESA, SHANE ([id number]) on 05/22/2018 2:20:53 PM Performing Organization Address City/State/[facility] Phone Number GE MUSE PT/aPTT (05/22/2018 2:19 AM CDT)Only the most recent of3 resultswithin the time period is included. Protime 15.0 (H) 11.7 - 14.7 seconds [facility] INR 1.2 <=5.9 [facility] PTT 179.7 (HH) 22.5 - 36.0 seconds [facility] Specimen Blood Narrative Performed At [facility] RECOMMENDED COUMADIN/WARFARIN INR THERAPY RANGES STANDARD DOSE: 2.0 - 3.0 Includes: PROPHYLAXIS for venous thrombosis, systemic embolization; TREATMENT for venous thrombosis and/or pulmonary embolus. HIGH RISK: Target INR is 2.5-3.5 for patients with mechanical heart valves. Performing Organization Address City/[facility]/Zipcode Phone Number [address] [address] [phone] CENTER Calcium, Ionized (05/22/2018 2:19 AM CDT)Only the most recent of2 resultswithin the time period is included. Calcium, Ion 1.15 1.12 - 1.27 mmol/L [facility] pH, Blood 7.40 [facility] Specimen Blood Performing Organization Address [facility] Phone Number [address] [address] CENTER Phosphorus (05/22/2018 2:19 AM CDT)Only the most recent of3 resultswithin the time period is included. Phosphorus 3.6 2.3 - 4.7 mg/dL [facility] Specimen Blood Performing Organization Address City/[facility] Phone Number [address] [address] CENTER Vancomycin level, random (05/22/2018 2:19 AM CDT) Vancomycin Rm 24.4 ug/mL [facility] Specimen Blood Narrative Performed At [facility] Reference Range: No Normals Performing Organization Address [facility] Phone Number [address] [address] CENTER MR brain without IV contrast (05/21/2018 11:53 AM CDT) Specimen Narrative Performed At FINAL REPORT [facility] MRI Brain without contrast Clinical History: Stroke [...] MD Report Verified Date/Time:05/21/2018 11:58:08 Reading Location: [address] Neuro Reading Room Procedure Note Interface, [...] Report Verified Date/Time: 05/21/2018 11:58:08 Reading Location: [address] Neuro Reading Room Performing Organization Address City/State/Zipcode Phone Number RIS MRA neck without IV contrast (05/21/2018 11:53 AM CDT) Specimen Narrative Performed At FINAL REPORT [facility] MRA Head and Neck CLINICAL HISTORY: Stroke TECHNIQUE: MRA of the head utilizing 3-D khvc-tr-biqjai technique, with 3-D reconstructions. MRA of the neck utilizing 2-D and 3-D xkha-td-dvlgmr technique, with 3-D reconstructions. COMPARISON: None FINDINGS: There is no evidence for a [place] proximal branch vessel occlusion. There [...] vertebral arteries. IMPRESSION: No evidence for a [place] proximal branch vessel occlusion. No hemodynamically significant stenosis in the internal carotid arteries. 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 Signed: Jaycob Alvarado MD Report Verified Date/Time:05/21/2018 12:04:26 Reading Location: [address] Neuro Reading Room Procedure Note Interface, External Ris In - 05/21/2018 12:06 PM CDT FINAL REPORT MRA Head and Neck CLINICAL HISTORY: Stroke TECHNIQUE: MRA of the head utilizing 3-D humi-oy-itqiaf technique, with 3-D reconstructions. MRA of the neck utilizing 2-D and 3-D jnft-ca-vzovzb technique, with 3-D reconstructions. COMPARISON: None FINDINGS: There is no evidence for a [place] proximal branch vessel occlusion. There [...] vertebral arteries. IMPRESSION: No evidence for a [place] proximal branch vessel occlusion. No hemodynamically significant stenosis in the internal carotid arteries. 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 Signed: Jaycob Alvarado MD Report Verified Date/Time: 05/21/2018 12:04:26 Reading Location: [address] Neuro Reading Room Performing Organization Address City/State/Zipcode Phone Number [facility] MRA head without IV contrast (05/21/2018 11:53 AM CDT) Specimen Narrative Performed At FINAL REPORT [facility] MRA Head and Neck CLINICAL HISTORY: Stroke TECHNIQUE: MRA of the head utilizing 3-D fnbv-pc-doxszi technique, with 3-D reconstructions. MRA of the neck utilizing 2-D and 3-D etpn-ni-kfpejb technique, with 3-D reconstructions. COMPARISON: None FINDINGS: There is no evidence for a [place] proximal branch vessel occlusion. There [...] vertebral arteries. IMPRESSION: No evidence for a [place] proximal branch vessel occlusion. No hemodynamically significant stenosis in the internal carotid arteries. 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 Signed: Jaycob Alvarado MD Report Verified Date/Time:05/21/2018 12:04:26 Reading Location: [address] Neuro Reading Room Procedure Note Interface, External Ris In - 05/21/2018 12:06 PM CDT FINAL REPORT MRA Head and Neck CLINICAL HISTORY: Stroke TECHNIQUE: MRA of the head utilizing 3-D uguw-ng-wgquaw technique, with 3-D reconstructions. MRA of the neck utilizing 2-D and 3-D fqmh-fl-rkcfvs technique, with 3-D reconstructions. COMPARISON: None FINDINGS: There is no evidence for a [place] proximal branch vessel occlusion. There [...] vertebral arteries. IMPRESSION: No evidence for a [place] proximal branch vessel occlusion. No hemodynamically significant stenosis in the internal carotid arteries. 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 Signed: Jaycob Alvarado MD Report Verified Date/Time: 05/21/2018 12:04:26 Reading Location: [facility] C013V Neuro Reading Room Performing Organization Address City/State/Zipcode Phone Number [facility] XR chest 1 view portable / bedside (05/21/2018 7:27 AM CDT)Only the most recent of2 resultswithin the time period is included. Specimen Narrative Performed At FINAL REPORT [employer] Portable chest CLINICAL HISTORY: Hypoxemia. COMPARISON STUDY: May 19, 2018. FINDINGS: The cardiac silhouette is unremarkable. The patient is status post sternotomy and valve replacement. There are increased interstitial markings with atelectatic changes in the lung bases and costophrenic angle blunting. No pneumothorax is noted. Degenerative changes are seen. IMPRESSION: No significant change. Signed: Addy Zapata MD Report Verified Date/Time:05/21/2018 10:54:40 Reading Location: [facility] C013X Ortho Consult Reading Room [...] Report Verified Date/Time: 05/21/2018 10:54:40 Reading Location: [facility] B1 C013X Ortho Consult Reading Room Performing Organization Address City/State/Zipcode Phone Number RIS TSH/Free T4 If Indicated (05/21/2018 2:59 AM CDT) TSH 0.77 0.35 - 4.94 uIU/mL [facility] Specimen Blood Performing Organization Address City/[facility]/Zipcode Phone Number [address] [address] CENTER Hemoglobin A1c (05/21/2018 2:59 AM CDT) Hemoglobin A1C 8.1 (H) 4.3 - 6.1 % [facility] Specimen Blood Performing Organization Address City/[facility]/Zipcode Phone Number [address] [address] CENTER Vitamin B12 (05/21/2018 2:59 AM CDT) Vitamin B12 692 213 - 816 pg/mL [facility] Specimen Blood Performing Organization Address City/[facility]/Zipcode Phone Number [address] [address] [phone] CENTER Lipid panel (05/21/2018 2:59 AM CDT) Triglycerides 348 mg/dL [facility] Cholesterol 208 mg/dL [facility] HDL 26 mg/dL [facility] LDL Calculated 112 mg/dL [facility] Specimen Blood Narrative Performed At [facility] Triglyceride Reference Range: Low Risk <150 [id number] High Risk 200-499 Very High Risk>=500 Cholesterol Reference Range: Low Risk <200 [id number] High Risk>240 HDL Cholesterol Reference Range: Low Risk >=60 High Risk <40 LDL Cholesterol Reference Range: Optimal<100 Near [id number] Biohzqwqdg169-960 Uqcm050-925 Very High >=190 Performing Organization Address City/State/Zipcode Phone Number DANIKA [facility] [address] [place] [address] [phone] CENTER ECHOCARDIOGRAM REPORT - SCAN (05/20/2018 6:50 PM CDT) Narrative Performed At CARDIAC CATH REPORT - SCAN (05/20/2018 3:41 PM CDT) Narrative Performed At EEG AWAKE AND DROWSY (05/20/2018 2:38 PM CDT) Specimen Narrative Performed At Date(s) of EE05/20/2018 GE RIS DATE OF REPORT: 05/20/2018 ACC: [id number] EEG Number: [id number] Test Location: Inpatient ICU Start time: 14:17 Stop time: 14:38 ICD-10: R56.9 CPT Code: 21341 HISTORY: 87 y.o. RHM w/ severe who [...] Fellow, PGY5 Linette Choe MD Attending Neurophysiologist [facility] Procedure Note Interface, External Ris In - 05/20/2018 3:54 PM CDT Date(s) of EE05/20/2018 DATE OF REPORT: 05/20/2018 ACC: [id number] EEG Number: [id number] Test Location: Inpatient ICU Start time: 14:17 Stop time: 14:38 ICD-10: R56.9 CPT Code: 03264 HISTORY: 87 y.o. RHM w/ severe who [...] Attending Neurophysiologist [facility] [place] Performing Organization Address City/[facility]/Zipcode Phone Number GE RIS XR abdomen / KUB 1 view (05/20/2018 11:22 AM CDT) Specimen Narrative Performed At FINAL REPORT [employer] Abdomen one view INDICATION: Nasogastric tube insertion COMPARISON: None available IMPRESSION: NG tube extends to the gastric body. The imaged bowel gas pattern is nonspecific. There are degenerative spine changes and incidental vascular calcifications. The imaged chest is similar to 05/19/2018. Signed: Virgil rKaft MD Report Verified Date/Time:05/20/2018 11:33:02 Reading Location: [facility] Radiology Reading Room Procedure Note Interface, [...] Report Verified Date/Time: 05/20/2018 11:33:02 Reading Location: [facility] Radiology Reading Room Performing Organization Address [facility] Phone Number GE RIS Troponin I (05/20/2018 11:05 AM CDT)Only the most recent of2 resultswithin the time period is included. Troponin I 1.13 (HH) 0.00 - 0.03 ng/mL [facility] Specimen Blood Narrative Performed At [facility] Troponin I (TnI) levels must be [...] disease, and persistent tachyarrhythmia. Performing Organization Address City/[facility] Phone Number [address] [address] [place] Lactic acid, venous, whole blood (05/20/2018 11:05 AM CDT) Lactate, Venous 2.1 0.5 - 2.2 mmol/L [facility] Specimen Blood Narrative Performed At [facility] Effective 04/02/2016: Units/Reference Range Change New: 0.5-2.2 mmol/LPrevious: 5-20 mg/dL Performing Organization Address [facility] Phone Number [address] [address] [place] Blood gas, venous (05/20/2018 11:05 AM CDT) pH, Phil 7.40 7.32 - 7.42 [facility] pCO2, Phil 45 41 - 51 mmHg [facility] pO2, Phil 26 25 - 40 mmHg [facility] O2 Sat, Phil 46.3 40.0 - 70.0 % [facility] HCO3, Phil 27 21 - 29 mmol/L [facility] Base Excess, Phil 1.8 -2.0 - 3.0 mmol/L [facility] Patient Temperature 36.9 C [facility] FIO2 36.0 % [facility] Specimen Blood Performing Organization Address City/[facility] Phone Number [place] [phone] [place], [place] [phone] CENTER Creatine Kinase (CK), Total and MB (05/20/2018 11:05 AM CDT)Only the most recent of2 resultswithin the time period is included. Total CK 138 29 - 200 U/L [facility] CK-MB 4.2 0.0 - 6.6 ng/mL [facility] MB Relative Index 3.0 % [facility] Specimen Blood Narrative Performed At CK-MB Reference Range: [facility] <6.7Normal 6.7-10.0Borderline >10.0 Abnormal Performing Organization Address City/State/Zipcode Phone Number [facility] [address] [place], [place] [phone] [place] Comprehensive metabolic panel (05/20/2018 11:05 AM CDT)Only the most recent of2 resultswithin the time period is included. Protein, Total 5.7 (L) 6.0 - 8.3 gm/dL [facility] Albumin 3.4 (L) 3.5 - 5.0 g/dL [facility] Alkaline Phosphatase 42 40 - 150 U/L [facility] Total Bilirubin 0.8 0.2 - 1.2 mg/dL [facility] Sodium 139 136 - 145 meq/L [facility] Potassium 4.2 3.5 - 5.1 meq/L [facility] Chloride 100 98 - 107 meq/L [facility] CO2 23 22 - 29 meq/L [facility] BUN 38 (H) 7 - 21 mg/dL [facility] Creatinine 2.17 (H) 0.57 - 1.25 mg/dL [facility] Glucose 129 (H) 70 - 105 mg/dL [facility] Calcium 9.0 8.4 - 10.2 mg/dL [facility] AST 27 5 - 34 U/L [facility] ALT 14 6 - 55 U/L [facility] EGFR 29Comment: ESTIMATED GFR mL/min/1.[address] [facility] IS NOT [facility] CREATININE CLEARANCE IN PREDICTING GLOMERULAR FILTRATION RATE. ESTIMATED GFR IS NOT APPLICABLE FOR DIALYSIS PATIENTS. Specimen Blood Performing Organization Address City/State/Zipcode Phone Number [facility] [address] [place] [address] [phone] CENTER ECHOCARDIOGRAM REPORT - SCAN (05/20/2018 9:50 AM CDT) Narrative Performed At 2D Echo W/Doppler(CW/PW/Color) (05/20/2018 9:24 AM CDT) Ejection Fraction [facility] Specimen Narrative Performed At Transthoracic Echocardiography Report (TTE) [facility] Demographics Patient Name Catherine SEXTON of Study 05/20/2018 RIOS [id number] GenderMale Visit Number [id number] Room Number 8A11 Number Date of Birth1930Referring Physician Cristobal Moreno MD Age87 year(s)Podiatrist Jamari Matute [facility] AnalystAlex Joaquin Bejarano Physician Procedure Type [...] Study 05/20/2018 RIOS Gender Male Visit Number [id number] Race Room Number 8A11 Number Date of 1930 Referring Physician Cristobal Moreno MD Age 87 year(s) Podiatrist Jamari Matute [facility] 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 Sean Nuñez Interpreting Andrews Bejarano Physician Procedure Type of Study TTE [...] LVOT VTI: 22.17 cm Performing Organization Address City/[facility]/Zipcode Phone Number [facility] Urinalysis w/Microscopic (05/19/2018 11:32 PM CDT) Color, UA Yellow [facility] Clarity, UA Clear [facility] Specific [place], UA 1.017 1.001 - 1.035 [facility] pH, UA 5.0 5.0 - 8.0 [facility] Protein, UA Negative Negative [facility] Glucose, UA Negative Negative [facility] Ketones, UA Negative Negative [facility] Bilirubin, UA Negative Negative [facility] Blood, UA Small (A) Negative [facility] Nitrite, UA Negative Negative [facility] Leukocytes, UA Negative Negative [facility] Urobilinogen, UA 0.2 0.2 - 1.0 mg/dL [facility] RBC, UA 12 /HPF [facility] WBC, UA 1 /HPF [facility] Mucus Rare [facility] Amorphous Crystals Occasional [facility] Specimen Source Urine, [place] [facility] Specimen Urine Performing Organization Address City/State/Zipcode Phone Number [facility] [address] [place] [address] CENTER Urine culture (05/19/2018 11:31 PM CDT) Result No growth [facility] Specimen Urine Performing Organization Address [facility] Phone Number [address] [phone] [place] Blood culture (05/19/2018 11:23 PM CDT)Only the most recent of2 resultswithin the time period is included. Result No growth in 5 days [facility] Specimen Blood Performing Organization Address [facility] Phone Number [address] [phone] [place] POC-Lactic Acid, Arterial (05/19/2018 9:17 PM CDT) POC-Lactic Acid, 1.5 (H)Comment: 0.4 - 1.3 mmol/L [facility] Arterial TESTED AT [address] [address] Specimen Blood Performing Organization Address [facility] Phone Number [address] [phone] [place] POCT-HEMATOCRIT (05/19/2018 9:07 PM CDT) POC-Hematocrit 32 (L)Comment: TESTED AT 40 - 50 % [address] [address] Specimen Blood Performing Organization Address [facility] Phone Number [address] [phone] [place] POCT-HEMOGLOBIN (05/19/2018 9:07 PM CDT) POC-Hemoglobin 10.9 (L)Comment: TESTED AT 13.0 - 16.8 g/dL [address] [address]UD[place] AT [address] [address] Specimen Blood Performing Organization Address [facility] Phone Number [address] [address] [phone] [place] POCT-GLUCOSE (05/19/2018 9:07 PM CDT) POC-Glucose 152 (H)Comment: TESTED AT 70 - 110 mg/dL [address] [address] Specimen Blood Performing Organization Address City/[facility]/Zipcode Phone Number [address] [address] CENTER POC-Sodium (05/19/2018 9:07 PM CDT) POC-Sodium 137Comment: TESTED AT [facility] 135 - 148 meq/L [address] [address] Specimen Blood Performing Organization Address [facility]/Zipcode Phone Number [address] [address] [phone] [place] POC-Potassium (05/19/2018 9:07 PM CDT) POC-Potassium 3.6Comment: TESTED AT [facility] 3.6 - 5.5 meq/L [address] [address] Specimen Blood Performing Organization Address [facility]/Zipcode Phone Number [address] [address] [phone] [place] POC-Calcium ionized (05/19/2018 9:07 PM CDT) POC-Calcium Ionized 1.19Comment: TESTED AT 1.12 - 1.27 mmol/L [address] [address] Specimen Blood Performing Organization Address City/[facility]/Zipcode Phone Number [address] [address] CENTER POC-Blood gases, arterial (05/19/2018 9:07 PM CDT) Temp. Celsius-POC 37.1 [facility] FIO2-POC 29Comment: TESTED AT [address] [address] pH, Arterial-POC 7.468 (H) 7.350 - 7.450 [facility] PCO2, Arterial-POC 34.4 (L) 35.0 - 45.0 mm Hg [facility] PO2, Arterial-POC 63.0 (L) 80.0 - 90.0 mm Hg [facility] SO2, Arterial-POC 93.0 (L) 96.0 - 97.0 % [facility] HCO3, Arterilal-POC 24.9 21.0 - 29.0 meq/L [facility] BE, Arterial-POC 1.0 -2.0 - 3.0 meq/L [facility] Specimen Blood Performing Organization Address City/State/Zipcode Phone Number [facility] [address] [place] [address] [phone] brain/stroke test design (05/19/2018 8:42 PM CDT) Specimen Narrative Performed At FINAL REPORT [facility] CT head without contrast 05/19/2018 8:43 PM [...] MD Report Verified Date/Time:05/19/2018 20:46:09 Reading Location: [facility] Radiology Reading Room Procedure Note Interface, [...] Report Verified Date/Time: 05/19/2018 20:46:09 Reading Location: [facility] Radiology Reading Room Performing Organization Address City/State/Zipcode Phone Number [facility] Prepare RBC (05/19/2018 10:47 AM CDT) CROSSMATCH COMPATIBLE SAFETRACE TX Unit ABO O Pos SAFETRACE TX UNIT NUMBER [id number] SAFETRACE TX Status RETURNED FROM ISSUE SAFETRACE TX Blood Bank Product RED BLOOD CELLS SAFETRACE TX PRODUCT CODE [id number] SAFETRACE TX CROSSMATCH COMPATIBLE SAFETRACE TX Unit ABO O Pos SAFETRACE TX UNIT NUMBER [id number] SAFETRACE TX Status RETURNED FROM ISSUE SAFETRACE TX Blood Bank Product RED BLOOD CELLS SAFETRACE TX PRODUCT CODE [id number] SAFETRACE TX CROSSMATCH COMPATIBLE SAFETRACE TX Unit ABO O Pos SAFETRACE TX UNIT NUMBER [id number] SAFETRACE TX Status RETURNED FROM ISSUE SAFETRACE TX Blood Bank Product RED BLOOD CELLS SAFETRACE TX PRODUCT CODE [id number] SAFETRACE TX CROSSMATCH COMPATIBLE SAFETRACE TX Unit ABO O Pos SAFETRACE TX UNIT NUMBER [id number] SAFETRACE TX Status RETURNED FROM ISSUE SAFETRACE TX Blood Bank Product RED BLOOD CELLS SAFETRACE TX PRODUCT CODE [id number] SAFETRACE TX Performing Organization Address City/[facility] Phone Number SAFETRACE TX POC ACTIVATED CLOTTING TIME (05/19/2018 8:59 AM CDT) Activated Clotting Time 329Comment: TESTED AT [address] [address] Specimen Blood Performing Organization Address [facility] Phone Number [address] [address] [phone] CENTER 2D Echo W/Doppler(CW/PW/Color) (05/19/2018 7:51 AM CDT) Ejection Fraction [facility] Specimen Narrative Performed At Transthoracic Echocardiography Report (TTE) [facility] Dem[facility] Patient Name Catherine SEXTON of Study 05/19/2018 RIOS [id number] GenderMale Visit Number [id number] Room Number 8A11 Number Date of Birth1930Referring Physician Cristobal Moreno MD Age87 year(s)Podiatrist Afua Coombs [facility] InterpretingStep micaela Rucker, Physician MD Micheal [...] Study 05/19/2018 RIOS Gender Male Visit Number [id number] Race Room Number 8A11 Number Date of 1930 Referring Physician Cristobal Moreno MD Age 87 year(s) Podiatrist Afua Coombs [facility] Interpreting Lisa Rucker, Physician MD Micheal [...] visualized. Performing Organization Address City/State/Zipcode Phone Number [facility] B-type Natriuretic Factor (BNP) (04/21/2018 1:51 PM CDT) BNP 785 (H) 0 - 100 pg/mL [facility] Specimen Blood Performing Organization Address City/[facility]/Zipcode Phone Number [place] [phone] [place] [address] CENTER CTA chest (04/19/2018 10:17 AM CDT) Specimen Narrative Performed At [facility] REPORT STATUS:A Addendum: I agree with the previously described non vascular findings.. Additionally, the lungs demonstrate fibrotic changes which are most pronounced in the bilateral bases. Biapical pleural-parenchymal scarring is present. Signed: Dejon Bland MD Report Verified Date/Time:04/20/2018 12:54:28 Reading Location: [place] [address] Angio Body Reading Room Addendum Ends FINAL [...] measures 7.3 and 7.9 mm, respectively with ayii-xa-eblwabtlrqocqbpdcn and nocalcific atherosclerosis present. The minimum and [...] 5.An addendum will be dictated by the Emergency Veterinary Assistant Radiologist regarding the nonvascular findings. Signed: Puneet Espinoza MD Report Verified Date/Time:04/19/2018 14:19:03 Reading Location: [facility] P047 Cardiology MRI Procedure Note Interface, External Ris In - 04/20/2018 12:56 PM CDT Addendum Begins REPORT STATUS:A Addendum: I agree with the previously described non vascular findings.. Additionally, the lungs demonstrate fibrotic changes which are most pronounced in the bilateral bases. Biapical pleural-parenchymal scarring is present. Signed: Dejon Bland MD Report Verified Date/Time: 04/20/2018 12:54:28 Reading Location: [place] [id number] Angio Body Reading Room Addendum Ends FINAL [...] measures 7.3 and 7.9 mm, respectively with pnlg-kt-ejylikaw tortuosity and no calcific atherosclerosis present. The [...] An addendum will be dictated by the Emergency Veterinary Assistant Radiologist regarding the nonvascular findings. Signed: Puneet Espinoza MD Report Verified Date/Time: 04/19/2018 14:19:03 Reading Location: [place] [address] Cardiology MRI Performing Organization Address City/State/Zipcode Phone Number [facility] CTA abdomen & pelvis (04/19/2018 10:17 AM CDT) Specimen Narrative Performed At Addendum Begins C-sam RIS REPORT STATUS:A Addendum: I agree with the previously described non vascular findings.. Additionally, the lungs demonstrate fibrotic changes which are most pronounced in the bilateral bases. Biapical pleural-parenchymal scarring is present. Signed: Dejon Bland MD Report Verified Date/Time:04/20/2018 12:54:28 Reading Location: [place] [id number] Angio Body Reading Room Addendum Ends FINAL [...] measures 7.3 and 7.9 mm, respectively with qift-cz-izbfnpusppdtqseqqj and nocalcific atherosclerosis present. The minimum and [...] 5.An addendum will be dictated by the Emergency Veterinary Assistant Radiologist regarding the nonvascular findings. Signed: Puneet Espinoza MD Report Verified Date/Time:04/19/2018 14:19:03 Reading Location: [place] [id number] Cardiology MRI Procedure Note Interface, External Ris In - 04/20/2018 12:56 PM CDT Addendum Begins REPORT STATUS:A Addendum: I agree with the previously described non vascular findings.. Additionally, the lungs demonstrate fibrotic changes which are most pronounced in the bilateral bases. Biapical pleural-parenchymal scarring is present. Signed: Dejon Bland MD Report Verified Date/Time: 04/20/2018 12:54:28 Reading Location: [facility] P048 Angio Body Reading Room [...] measures 7.3 and 7.9 mm, respectively with pxsx-vv-fseoaiat tortuosity and no calcific atherosclerosis present. The [...] An addendum will be dictated by the Emergency Veterinary Assistant Radiologist regarding the nonvascular findings. Signed: Puneet Espinoza MD Report Verified Date/Time: 04/19/2018 14:19:03 Reading Location: [place] [address] Cardiology MRI Performing Organization Address City/[facility]/Zipcode Phone Number [facility] POC-Creatinine (04/19/2018 9:34 AM CDT) POC-Creatinine 1.3Comment: TESTED AT 0.6 - 1.3 mg/dL [facility] [address] [place] [address] POC-EGFR 52 mL/min/1.73M2 [facility] Specimen Blood Performing Organization Address City/[facility]/Zipcode Phone Number [facility] MEDICAL [address] [place] [address] [phone] CENTER after 04/06/2018 Insurance Payer Benefit Plan / Group Subscriber ID Type Phone Address MEDICARE MEDICARE A B xxxxxxxxxx Medicare AET[employer] - MGD CARE A[employer] INDEMNITY NON CONTR xxxxxxxxxx Comm DR Villan[address] ([place]) [address] [place] [address] Advance Directives For more information, please contact:[address] [phone] Code Status Date Activated Date Inactivated Comments Full Code 05/19/2018 5:27 AM 05/30/2018 5:08 PM This code status was determined by: Patient
--- OUTSIDE RECORDS SUMMARY | 2019-04-07 09:26 | XMS REPORT ---
:1930 Author Organization [facility] Address [address] [place] [address] Care Team Providers Name Role Phone TONIE [...] (BEAKER) (test 112 mg/dL 70-110 TESTED AT [address] qsss=2429) [facility] [address] POCT-GLUCOSE [id number] 08:17:00 Test Item Value Reference Range Comments POC-GLUCOSE METER (BEAKER) 98 mg/dL 70-110 TESTED AT [address] (test dihc=0182) [facility] [address] BASIC METABOLIC [id number] 06:16:00 Test Item Value Reference Range Comments SODIUM (BEAKER) (test 136 meq/L 136-145 vtwo=868) POTASSIUM (BEAKER) (test 3.7 meq/L 3.5-5.1 hyas=159) CHLORIDE (BEAKER) (test 101 meq/L 98-107 gjkh=512) CO2 (BEAKER) (test 26 meq/L 22-29 lsmm=839) BLOOD UREA NITROGEN 28 mg/dL 7-21 (BEAKER) (test opvt=874) CREATININE (BEAKER) (test 1.31 mg/dL 0.57-1.25 easz=173) GLUCOSE RANDOM (BEAKER) 74 mg/dL 70-105 (test ajvs=627) CALCIUM (BEAKER) (test 8.9 mg/dL 8.4-10.2 hale=515) EGFR (BEAKER) (test 52 mL/min/1.73 sq m ESTIMATED GFR IS NOT mlea=9483) ACCURATE CREATININE CLEARANCE IN PREDICTING GLOMERULAR FILTRATION RATE. ESTIMATED GFR IS NOT APPLICABLE FOR DIALYSIS PATIENTS. PROTHROMBIN [id number] 05:42:00 Test Item Value Reference Range Comments PROTIME (BEAKER) (test uprj=223) 22.3 seconds 11.7-14.7 INR (BEAKER) (test hwsx=816) 2.0 <=5.9 RECOMMENDED COUMADIN/WARFARIN INR THERAPY RANGESSTANDARD DOSE: 2.0 - 3.0 Includes: PROPHYLAXIS forvenous thrombosis, systemic embolization; TREATMENT for venous thrombosis and/or pulmonary embolus.HIGH RISK: Target INR is 2.5-3.5 for patients with mechanical heart valves.CBC (HEMOGRAM ONLY)2018-05-30 05:34:00 Test Item Value Reference Range Comments WHITE BLOOD CELL COUNT (BEAKER) (test gusi=950) 10.0 K/ L 3.5-10.5 RED BLOOD CELL COUNT (BEAKER) (test sula=317) 3.44 M/ L 4.63-6.08 HEMOGLOBIN (BEAKER) (test hbyc=086) 9.6 GM/DL 13.7-17.5 HEMATOCRIT (BEAKER) (test oadn=762) 30.8 % 40.1-51.0 MEAN CORPUSCULAR VOLUME (BEAKER) (test ouly=438) 89.5 fL 79.0-92.2 MEAN CORPUSCULAR HEMOGLOBIN (BEAKER) (test 27.9 pg 25.7-32.2 uyfm=577) MEAN CORPUSCULAR HEMOGLOBIN CONC (BEAKER) (test 31.2 GM/DL 32.3-36.5 eozy=151) RED CELL DISTRIBUTION WIDTH (BEAKER) (test 16.1 % 11.6-14.4 cijp=793) PLATELET COUNT (BEAKER) (test evht=022) 169 K/CU MM 150-450 MEAN PLATELET VOLUME (BEAKER) (test vkqw=895) 11.5 fL 9.4-12.4 NUCLEATED RED BLOOD CELLS (BEAKER) (test 0 /100 WBC 0-0 kmqk=467) POCT-GLUCOSE [id number] 21:35:00 Test Item Value Reference Range Comments POC-GLUCOSE METER (BEAKER) 203 mg/dL 70-110 TESTED AT [address] (test citz=5855) [place] [address] POCT-GLUCOSE [id number] 16:47:00 Test Item Value Reference Range Comments POC-GLUCOSE METER (BEAKER) 177 mg/dL 70-110 TESTED AT [address] (test drim=3231) [place] [address] POCT-GLUCOSE [id number] 12:17:00 Test Item Value Reference Range Comments POC-GLUCOSE METER (BEAKER) 139 mg/dL 70-110 TESTED AT [address] (test jxiq=0065) [place] [address] POCT-GLUCOSE [id number] 08:38:00 Test Item Value Reference Range Comments POC-GLUCOSE METER (BEAKER) 83 mg/dL 70-110 TESTED AT [address] (test ojsa=8345) [place] [address] PROTHROMBIN [id number] 06:39:00 Test Item Value Reference Range Comments PROTIME (BEAKER) (test avsu=023) 23.6 seconds 11.7-14.7 INR (BEAKER) (test jakk=403) 2.1 <=5.9 RECOMMENDED COUMADIN/WARFARIN INR THERAPY RANGESSTANDARD DOSE: 2.0 - 3.0 Includes: PROPHYLAXIS forvenous thrombosis, systemic embolization; TREATMENT for venous thrombosis and/or pulmonary embolus.HIGH RISK: Target INR is 2.5-3.5 for patients with mechanical heart valves.POCT-GLUCOSE [id number] 21:31:00 Test Item Value Reference Range Comments POC-GLUCOSE METER (BEAKER) 187 mg/dL 70-110 TESTED AT [address] (test agqq=0639) [place] [address] POCT-GLUCOSE [id number] 11:55:00 Test Item Value Reference Range Comments POC-GLUCOSE METER (BEAKER) 250 mg/dL 70-110 TESTED AT [address] (test havp=9422) [place] [address] POCT-GLUCOSE [id number] 07:55:00 Test Item Value Reference Range Comments POC-GLUCOSE METER (BEAKER) 156 mg/dL 70-110 TESTED AT [address] (test oeby=3732) [place] [address] [id number] 07:33:00 Test Item Value Reference Range Comments MAGNESIUM (BEAKER) (test myng=716) 2.3 mg/dL 1.6-2.6 PROTHROMBIN [id number] 06:33:00 Test Item Value Reference Range Comments PROTIME (BEAKER) (test qkgz=611) 20.3 seconds 11.7-14.7 INR (BEAKER) (test myju=661) 1.7 <=5.9 RECOMMENDED COUMADIN/WARFARIN INR THERAPY RANGESSTANDARD DOSE: 2.0 - 3.0 Includes: PROPHYLAXIS forvenous thrombosis, systemic embolization; TREATMENT for venous thrombosis and/or pulmonary embolus.HIGH RISK: Target INR is 2.5-3.5 for patients with mechanical heart valves.BASIC METABOLIC [id number] 21:18: 00 Test Item Value Reference Range Comments SODIUM (BEAKER) (test 137 meq/L 136-145 crmz=098) POTASSIUM (BEAKER) (test 4.1 meq/L 3.5-5.1 cfab=919) CHLORIDE (BEAKER) (test 102 meq/L 98-107 gwgv=803) CO2 (BEAKER) (test 26 meq/L 22-29 igil=390) BLOOD UREA NITROGEN 32 mg/dL 7-21 (BEAKER) (test zjys=911) CREATININE (BEAKER) (test 1.30 mg/dL 0.57-1.25 ophe=964) GLUCOSE RANDOM (BEAKER) 95 mg/dL 70-105 (test ygby=008) CALCIUM (BEAKER) (test 9.1 mg/dL 8.4-10.2 qnhi=762) EGFR (BEAKER) (test 52 mL/min/1.73 sq m ESTIMATED GFR IS NOT ueim=5590) ACCURATE CREATININE CLEARANCE IN PREDICTING GLOMERULAR FILTRATION RATE. ESTIMATED GFR IS NOT APPLICABLE FOR DIALYSIS PATIENTS. POCT-GLUCOSE [id number] 21:16:00 Test Item Value Reference Range Comments POC-GLUCOSE METER (BEAKER) 94 mg/dL 70-110 TESTED AT [facility] [address] [facility] (test kwpt=2442) [facility] [address] CBC (HEMOGRAM ONLY)2018-05-27 21:04:00 Test Item Value Reference Range Comments WHITE BLOOD CELL COUNT (BEAKER) (test zkdk=395) 11.1 K/ L 3.5-10.5 RED BLOOD CELL COUNT (BEAKER) (test rvtd=018) 3.63 M/ L 4.63-6.08 HEMOGLOBIN (BEAKER) (test mjfl=730) 10.1 GM/DL 13.7-17.5 HEMATOCRIT (BEAKER) (test btcn=872) 32.6 % 40.1-51.0 MEAN CORPUSCULAR VOLUME (BEAKER) (test lgdr=597) 89.8 fL 79.0-92.2 MEAN CORPUSCULAR HEMOGLOBIN (BEAKER) (test 27.8 pg 25.7-32.2 skja=592) MEAN CORPUSCULAR HEMOGLOBIN CONC (BEAKER) (test 31.0 GM/DL 32.3-36.5 jgsm=031) RED CELL DISTRIBUTION WIDTH (BEAKER) (test 15.9 % 11.6-14.4 hcem=664) PLATELET COUNT (BEAKER) (test hfub=230) 171 K/CU MM 150-450 MEAN PLATELET VOLUME (BEAKER) (test udti=864) 11.4 fL 9.4-12.4 NUCLEATED RED BLOOD CELLS (BEAKER) (test 0 /100 WBC 0-0 mohq=182) POCT-GLUCOSE [id number] 17:03:00 Test Item Value Reference Range Comments POC-GLUCOSE METER (BEAKER) 226 mg/dL 70-110 TESTED AT [address] (test dbdf=2698) [place] [address] POCT-GLUCOSE [id number] 11:53:00 Test Item Value Reference Range Comments POC-GLUCOSE METER (BEAKER) 154 mg/dL 70-110 TESTED AT [address] (test wqwc=3809) [place] [address] POCT-GLUCOSE [id number] 07:58:00 Test Item Value Reference Range Comments POC-GLUCOSE METER (BEAKER) 78 mg/dL 70-110 TESTED AT [address] (test omdw=2950) [place] [address] [id number] 06:27:00 Test Item Value Reference Range Comments MAGNESIUM (BEAKER) (test fihl=720) 2.1 mg/dL 1.6-2.6 PROTHROMBIN [id number] 05:53:00 Test Item Value Reference Range Comments PROTIME (BEAKER) (test zltb=248) 19.1 seconds 11.7-14.7 INR (BEAKER) (test jeak=542) 1.6 <=5.9 RECOMMENDED COUMADIN/WARFARIN INR THERAPY RANGESSTANDARD DOSE: 2.0 - 3.0 Includes: PROPHYLAXIS forvenous thrombosis, systemic embolization; TREATMENT for venous thrombosis and/or pulmonary embolus.HIGH RISK: Target INR is 2.5-3.5 for patients with mechanical heart valves.POCT-GLUCOSE [id number] 21:34:00 Test Item Value Reference Range Comments POC-GLUCOSE METER (BEAKER) 221 mg/dL 70-110 TESTED AT [address] (test pnhy=9305) [place] [address] POCT-GLUCOSE [id number] 18:12:00 Test Item Value Reference Range Comments POC-GLUCOSE METER (BEAKER) 173 mg/dL 70-110 TESTED AT [address] (test gbew=7335) [place] [address] POCT-GLUCOSE [id number] 12:42:00 Test Item Value Reference Range Comments POC-GLUCOSE METER (BEAKER) 286 mg/dL 70-110 TESTED AT [address] (test zbzo=6025) [place] [address] POCT-GLUCOSE [id number] 08:40:00 Test Item Value Reference Range Comments POC-GLUCOSE METER (BEAKER) 91 mg/dL 70-110 TESTED AT [address] (test xjss=0479) [place] [address] [id number] 07:52:00 Test Item Value Reference Range Comments MAGNESIUM (BEAKER) (test gcja=316) 2.2 mg/dL 1.6-2.6 PROTHROMBIN [id number] 07:30:00 Test Item Value Reference Range Comments PROTIME (BEAKER) (test tzed=359) 15.1 seconds 11.7-14.7 INR (BEAKER) (test sqxq=216) 1.2 <=5.9 RECOMMENDED COUMADIN/WARFARIN INR THERAPY RANGESSTANDARD DOSE: 2.0 - 3.0 Includes: PROPHYLAXIS forvenous thrombosis, systemic embolization; TREATMENT for venous thrombosis and/or pulmonary embolus.HIGH RISK: Target INR is 2.5-3.5 for patients with mechanical heart valves.CBC W/PLT COUNT & AUTO [id number] 07:24:00 Test Item Value Reference Range Comments WHITE BLOOD CELL COUNT (BEAKER) (test jnbe=133) 12.2 K/ L 3.5-10.5 RED BLOOD CELL COUNT (BEAKER) (test cqns=551) 3.70 M/ L 4.63-6.08 HEMOGLOBIN (BEAKER) (test mxix=360) 10.6 GM/DL 13.7-17.5 HEMATOCRIT (BEAKER) (test fbzm=208) 33.2 % 40.1-51.0 MEAN CORPUSCULAR VOLUME (BEAKER) (test iwbr=595) 89.7 fL 79.0-92.2 MEAN CORPUSCULAR HEMOGLOBIN (BEAKER) (test 28.6 pg 25.7-32.2 gxpm=219) MEAN CORPUSCULAR HEMOGLOBIN CONC (BEAKER) (test 31.9 GM/DL 32.3-36.5 sgfq=848) RED CELL DISTRIBUTION WIDTH (BEAKER) (test 15.9 % 11.6-14.4 ycdl=593) PLATELET COUNT (BEAKER) (test fqye=632) 137 K/CU MM 150-450 MEAN PLATELET VOLUME (BEAKER) (test icco=144) 11.1 fL 9.4-12.4 NUCLEATED RED BLOOD CELLS (BEAKER) (test 0 /100 WBC 0-0 rxpf=408) NEUTROPHILS RELATIVE PERCENT (BEAKER) (test 54 % dxxx=257) LYMPHOCYTES RELATIVE PERCENT (BEAKER) (test 33 % eivt=028) MONOCYTES RELATIVE PERCENT (BEAKER) (test 8 % wfmn=056) EOSINOPHILS RELATIVE PERCENT (BEAKER) (test 3 % jpmp=020) BASOPHILS RELATIVE PERCENT (BEAKER) (test 0 % bhfu=729) NEUTROPHILS ABSOLUTE COUNT (BEAKER) (test 6.59 K/ L 1.78-5.38 zona=805) LYMPHOCYTES ABSOLUTE COUNT (BEAKER) (test 3.96 K/ L 1.32-3.57 mdsq=408) MONOCYTES ABSOLUTE COUNT (BEAKER) (test 1.00 K/ L 0.30-0.82 qtko=276) EOSINOPHILS ABSOLUTE COUNT (BEAKER) (test 0.30 K/ L 0.04-0.54 rlzo=415) BASOPHILS ABSOLUTE COUNT (BEAKER) (test 0.05 K/ L 0.01-0.08 xttk=732) IMMATURE GRANULOCYTES-RELATIVE PERCENT (BEAKER) 2 % 0-1 (test xzma=7612) POCT-GLUCOSE [id number] 22:05:00 Test Item Value Reference Range Comments POC-GLUCOSE METER (BEAKER) 122 mg/dL 70-110 TESTED AT [facility] [address] (test obpb=6713) [facility] [address] BASIC METABOLIC [id number] 21:48:00 Test Item Value Reference Range Comments SODIUM (BEAKER) (test 135 meq/L 136-145 zjyp=370) POTASSIUM (BEAKER) (test 4.2 meq/L 3.5-5.1 wvds=936) CHLORIDE (BEAKER) (test 101 meq/L 98-107 lelr=158) CO2 (BEAKER) (test 25 meq/L 22-29 fshm=968) BLOOD UREA NITROGEN 27 mg/dL 7-21 (BEAKER) (test scnr=478) CREATININE (BEAKER) (test 1.09 mg/dL 0.57-1.25 ymtu=833) GLUCOSE RANDOM (BEAKER) 139 mg/dL 70-105 (test svvj=364) CALCIUM (BEAKER) (test 9.5 mg/dL 8.4-10.2 foyv=113) EGFR (BEAKER) (test 64 mL/min/1.73 sq m ESTIMATED GFR IS NOT ncgk=7966) ACCURATE CREATININE CLEARANCE IN PREDICTING GLOMERULAR FILTRATION RATE. ESTIMATED GFR IS NOT APPLICABLE FOR DIALYSIS PATIENTS. CBC (HEMOGRAM ONLY)2018-05-25 21:37:00 Test Item Value Reference Range Comments WHITE BLOOD CELL COUNT (BEAKER) (test jfqo=284) 17.3 K/ L 3.5-10.5 RED BLOOD CELL COUNT (BEAKER) (test bjkz=668) 3.84 M/ L 4.63-6.08 HEMOGLOBIN (BEAKER) (test rvyl=643) 11.0 GM/DL 13.7-17.5 HEMATOCRIT (BEAKER) (test chcp=465) 33.5 % 40.1-51.0 MEAN CORPUSCULAR VOLUME (BEAKER) (test vyju=481) 87.2 fL 79.0-92.2 MEAN CORPUSCULAR HEMOGLOBIN (BEAKER) (test 28.6 pg 25.7-32.2 pkch=764) MEAN CORPUSCULAR HEMOGLOBIN CONC (BEAKER) (test 32.8 GM/DL 32.3-36.5 stnf=845) RED CELL DISTRIBUTION WIDTH (BEAKER) (test 15.8 % 11.6-14.4 bafz=794) PLATELET COUNT (BEAKER) (test qlss=172) 151 K/CU MM 150-450 MEAN PLATELET VOLUME (BEAKER) (test giro=312) 11.6 fL 9.4-12.4 NUCLEATED RED BLOOD CELLS (BEAKER) (test 0 /100 WBC 0-0 hyxp=315) CT, BRAIN, WITHOUT [id number] 19:17:00FINAL REPORT CT head without contrast 05/25/2018 [...] Boykin Verified Date/Time: 2017 19:17:21 Reading Location: [facility] Radiology Reading Room Electronicallysigned by: MICHEAL BOYKIN M.D. on 05/25/2018 07:17 PMPOCT- GLUCOSE [id number] 17:10:00 Test Item Value Reference Range Comments POC-GLUCOSE METER (BEAKER) 186 mg/dL 70-110 TESTED AT [facility] [address] [facility] (test letl=3428) [facility] [address] POCT-GLUCOSE [id number] 11:53:00 Test Item Value Reference Range Comments POC-GLUCOSE METER (BEAKER) 152 mg/dL 70-110 TESTED AT [facility] [address] [facility] (test ymfi=6968) [facility] [address] POCT-GLUCOSE [id number] 08:24:00 Test Item Value Reference Range Comments POC-GLUCOSE METER (BEAKER) 126 mg/dL 70-110 TESTED AT [facility] [address] [facility] (test gzbp=1867) [facility] [address] BASIC METABOLIC [id number] 06:46:00 Test Item Value Reference Range Comments SODIUM (BEAKER) (test 137 meq/L 136-145 evsm=070) POTASSIUM (BEAKER) (test 3.8 meq/L 3.5-5.1 Specimen slightly jbiz=386) hemolyzed CHLORIDE (BEAKER) (test 101 meq/L 98-107 itdf=740) CO2 (BEAKER) (test 25 meq/L 22-29 spps=682) BLOOD UREA NITROGEN 26 mg/dL 7-21 (BEAKER) (test oqok=820) CREATININE (BEAKER) (test 0.94 mg/dL 0.57-1.25 Specimen slightly lzjl=829) hemolyzed GLUCOSE RANDOM (BEAKER) 110 mg/dL 70-105 (test pmeu=153) CALCIUM (BEAKER) (test 9.2 mg/dL 8.4-10.2 oeju=926) EGFR (BEAKER) (test 76 mL/min/1.73 sq m ESTIMATED GFR IS NOT iyqh=4754) ACCURATE CREATININE CLEARANCE IN PREDICTING GLOMERULAR FILTRATION RATE. ESTIMATED GFR IS NOT APPLICABLE FOR DIALYSIS PATIENTS. BLOOD [id number] 06:00:00 Test Item Value Reference Range Comments CULTURE (BEAKER) (test ledh=1323) No growth in 5 days BLOOD [id number] 06:00:00 Test Item Value Reference Range Comments CULTURE (BEAKER) (test ykef=3113) No growth in 5 days [id number] 05:50:00 Test Item Value Reference Range Comments MAGNESIUM (BEAKER) (test 2.3 mg/dL 1.6-2.6 Specimen slightly hemolyzed hhdb=925) PROTHROMBIN [id number] 05:44:00 Test Item Value Reference Range Comments PROTIME (BEAKER) (test skbh=646) 13.8 seconds 11.7-14.7 INR (BEAKER) (test ytxv=624) 1.1 <=5.9 RECOMMENDED COUMADIN/WARFARIN INR THERAPY RANGESSTANDARD DOSE: 2.0 - 3.0 Includes: PROPHYLAXIS forvenous thrombosis, systemic embolization; TREATMENT for venous thrombosis and/or pulmonary embolus.HIGH RISK: Target INR is 2.5-3.5 for patients with mechanical heart valves.POCT-GLUCOSE [id number] 22:35:00 Test Item Value Reference Range Comments POC-GLUCOSE METER (BEAKER) 216 mg/dL 70-110 TESTED AT [address] (test zgnr=5837) [facility] [address] POCT-GLUCOSE [id number] 17:10:00 Test Item Value Reference Range Comments POC-GLUCOSE METER (BEAKER) 240 mg/dL 70-110 TESTED AT [address] (test wmdl=0507) [facility] [address] POCT-GLUCOSE [id number] 12:11:00 Test Item Value Reference Range Comments POC-GLUCOSE METER (BEAKER) 172 mg/dL 70-110 TESTED AT [address] (test uqjr=1484) [facility] [address] [id number] 04:19:00 Test Item Value Reference Range Comments MAGNESIUM (BEAKER) (test vgta=469) 2.2 mg/dL 1.6-2.6 BASIC METABOLIC [id number] 04:19:00 Test Item Value Reference Range Comments SODIUM (BEAKER) (test 140 meq/L 136-145 wspb=775) POTASSIUM (BEAKER) (test 3.6 meq/L 3.5-5.1 lpnm=822) CHLORIDE (BEAKER) (test 105 meq/L 98-107 bdec=243) CO2 (BEAKER) (test 28 meq/L 22-29 gubn=966) BLOOD UREA NITROGEN 33 mg/dL 7-21 (BEAKER) (test mgfr=988) CREATININE (BEAKER) (test 0.96 mg/dL 0.57-1.25 rhqr=657) GLUCOSE RANDOM (BEAKER) 128 mg/dL 70-105 (test cxyz=216) CALCIUM (BEAKER) (test 9.0 mg/dL 8.4-10.2 ouvn=021) EGFR (BEAKER) (test 74 mL/min/1.73 sq m ESTIMATED GFR IS NOT ctof=7375) ACCURATE CREATININE CLEARANCE IN PREDICTING GLOMERULAR FILTRATION RATE. ESTIMATED GFR IS NOT APPLICABLE FOR DIALYSIS PATIENTS. PROTHROMBIN [id number] 03:49:00 Test Item Value Reference Range Comments PROTIME (BEAKER) (test yxga=113) 13.8 seconds 11.7-14.7 INR (BEAKER) (test ngpm=236) 1.1 <=5.9 RECOMMENDED COUMADIN/WARFARIN INR THERAPY RANGESSTANDARD DOSE: 2.0 - 3.0 Includes: PROPHYLAXIS forvenous thrombosis, systemic embolization; TREATMENT for venous thrombosis and/or pulmonary embolus.HIGH RISK: Target INR is 2.5-3.5 for patients with mechanical heart valves.While on warfarin.CBC (HEMOGRAM ONLY) 2018-05-24 03:43:00 Test Item Value Reference Range Comments WHITE BLOOD CELL COUNT (BEAKER) (test ycqa=380) 8.8 K/ L 3.5-10.5 RED BLOOD CELL COUNT (BEAKER) (test nllk=148) 3.23 M/ L 4.63-6.08 HEMOGLOBIN (BEAKER) (test wgpd=576) 9.2 GM/DL 13.7-17.5 HEMATOCRIT (BEAKER) (test ikfp=261) 28.5 % 40.1-51.0 MEAN CORPUSCULAR VOLUME (BEAKER) (test raar=974) 88.2 fL 79.0-92.2 MEAN CORPUSCULAR HEMOGLOBIN (BEAKER) (test 28.5 pg 25.7-32.2 jfyc=464) MEAN CORPUSCULAR HEMOGLOBIN CONC (BEAKER) (test 32.3 GM/DL 32.3-36.5 osrz=719) RED CELL DISTRIBUTION WIDTH (BEAKER) (test 15.0 % 11.6-14.4 uydk=270) PLATELET COUNT (BEAKER) (test tygv=808) 87 K/CU MM 150-450 MEAN PLATELET VOLUME (BEAKER) (test sqzm=397) 11.6 fL 9.4-12.4 NUCLEATED RED BLOOD CELLS (BEAKER) (test 0 /100 WBC 0-0 odmc=411) POCT-GLUCOSE [id number] 23:13:00 Test Item Value Reference Range Comments POC-GLUCOSE METER (BEAKER) 170 mg/dL 70-110 TESTED AT [address] (test zcla=0353) [facility] [address] POCT-GLUCOSE [id number] 17:11:00 Test Item Value Reference Range Comments POC-GLUCOSE METER (BEAKER) 290 mg/dL 70-110 TESTED AT [address] (test xspq=4962) [facility] [address] CT, BRAIN, WITHOUT [id number] 15:31:00Reason for exam:->Cerebral embolizationWhat is the patient's [...] Boykin Verified Date/Time: 05/23/2018 15:31:32 Reading Location: [facility] B1 C013V Neuro Reading Room POCT-GLUCOSE [id number] 12:34:00 Test Item Value Reference Range Comments POC-GLUCOSE METER (BEAKER) 204 mg/dL 70-110 TESTED AT [address] (test numb=1820) [facility] [address] [id number] 08:24:00 Test Item Value Reference Range Comments FERRITIN (BEAKER) (test dphh=307) 435 ng/mL 5-275 POCT-GLUCOSE [id number] 08:21:00 Test Item Value Reference Range Comments POC-GLUCOSE METER (BEAKER) 134 mg/dL 70-110 TESTED AT [facility] [address] [facility] (test jxsk=0942) [facility] [address] IRON, TIBC, % SAT. (WITHOUT FERRITIN)2018-05-23 07:34:00 Test Item Value Reference Range Comments IRON (BEAKER) (test dzak=755) 63 ug/dL 40-160 TOTAL IRON BINDING CAPACITY (BEAKER) (test 224 ug/dL 250-450 fipa=778) IRON % SATURATION (2) (BEAKER) (test nbob=9859) 28 % 20-55 [id number] 06:45:00 Test Item Value Reference Range Comments PARTIAL THROMBOPLASTIN TIME (BEAKER) (test 94.3 seconds 22.5-36.0 enjf=357) [id number] 06:05:00 Test Item Value Reference Range Comments MAGNESIUM (BEAKER) (test tlli=093) 2.3 mg/dL 1.6-2.6 BASIC METABOLIC [id number] 06:05:00 Test Item Value Reference Range Comments SODIUM (BEAKER) (test 138 meq/L 136-145 qdvd=222) POTASSIUM (BEAKER) (test 3.5 meq/L 3.5-5.1 qaim=786) CHLORIDE (BEAKER) (test 102 meq/L 98-107 gcxd=093) CO2 (BEAKER) (test 27 meq/L 22-29 wnle=043) BLOOD UREA NITROGEN 38 mg/dL 7-21 (BEAKER) (test bsva=782) CREATININE (BEAKER) (test 1.16 mg/dL 0.57-1.25 ffnn=983) GLUCOSE RANDOM (BEAKER) 118 mg/dL 70-105 (test abto=511) CALCIUM (BEAKER) (test 8.9 mg/dL 8.4-10.2 cozs=595) EGFR (BEAKER) (test 60 mL/min/1.73 sq m ESTIMATED GFR IS NOT bjpf=6912) ACCURATE CREATININE CLEARANCE IN PREDICTING GLOMERULAR FILTRATION RATE. ESTIMATED GFR IS NOT APPLICABLE FOR DIALYSIS PATIENTS. CBC (HEMOGRAM ONLY)2018-05-23 05:55:00 Test Item Value Reference Range Comments WHITE BLOOD CELL COUNT (BEAKER) (test mvhl=913) 9.8 K/ L 3.5-10.5 RED BLOOD CELL COUNT (BEAKER) (test yzpk=219) 2.77 M/ L 4.63-6.08 HEMOGLOBIN (BEAKER) (test qvqr=119) 7.7 GM/DL 13.7-17.5 HEMATOCRIT (BEAKER) (test jcyt=400) 24.0 % 40.1-51.0 MEAN CORPUSCULAR VOLUME (BEAKER) (test eloc=114) 86.6 fL 79.0-92.2 MEAN CORPUSCULAR HEMOGLOBIN (BEAKER) (test 27.8 pg 25.7-32.2 hnvh=061) MEAN CORPUSCULAR HEMOGLOBIN CONC (BEAKER) (test 32.1 GM/DL 32.3-36.5 vzpv=934) RED CELL DISTRIBUTION WIDTH (BEAKER) (test 15.9 % 11.6-14.4 rvak=442) PLATELET COUNT (BEAKER) (test pgkb=226) 74 K/CU MM 150-450 MEAN PLATELET VOLUME (BEAKER) (test gfwn=428) 11.8 fL 9.4-12.4 NUCLEATED RED BLOOD CELLS (BEAKER) (test 0 /100 WBC 0-0 gwgk=722) [id number] 23:49:00 Test Item Value Reference Range Comments PARTIAL THROMBOPLASTIN TIME (BEAKER) (test 82.0 seconds 22.5-36.0 lokn=694) POCT-GLUCOSE [id number] 22:25:00 Test Item Value Reference Range Comments POC-GLUCOSE METER (BEAKER) 212 mg/dL 70-110 TESTED AT [address] (test idil=8585) [place] [address] [id number] 21:32:00 Test Item Value Reference Range Comments PARTIAL THROMBOPLASTIN TIME (BEAKER) (test 131.6 seconds 22.5-36.0 byrm=562) POCT-GLUCOSE [id number] 17:58:00 Test Item Value Reference Range Comments POC-GLUCOSE METER (BEAKER) 296 mg/dL 70-110 TESTED AT [address] (test nodq=9202) [place] [address] [id number] 14:27:00 Test Item Value Reference Range Comments PARTIAL THROMBOPLASTIN TIME (BEAKER) (test 96.3 seconds 22.5-36.0 mizk=123) URINE [id number] 12:50:00 Test Item Value Reference Range Comments CULTURE (BEAKER) (test fytx=0838) No growth [id number] 12:49:00 Test Item Value Reference Range Comments PARTIAL THROMBOPLASTIN TIME (BEAKER) (test 150.3 seconds 22.5-36.0 hipf=655) [id number] 05:53:00 Test Item Value Reference Range Comments PARTIAL THROMBOPLASTIN TIME (BEAKER) (test 44.1 seconds 22.5-36.0 vqoh=952) [id number] 03:32:00 Test Item Value Reference Range Comments PROTIME (BEAKER) (test rbby=705) 15.0 seconds 11.7-14.7 INR (BEAKER) (test gsqs=453) 1.2 <=5.9 PARTIAL THROMBOPLASTIN TIME (BEAKER) (test 179.7 seconds 22.5-36.0 prcy=932) RECOMMENDED COUMADIN/WARFARIN INR THERAPY RANGESSTANDARD DOSE: 2.0 - 3.0 Includes: PROPHYLAXIS forvenous thrombosis, systemic embolization; TREATMENT for venous thrombosis and/or pulmonary embolus.HIGH RISK: Target INR is 2.5-3.5 for patients with mechanical heart valves.[id number] 02:54:00 Test Item Value Reference Range Comments PHOSPHORUS (BEAKER) (test hupt=310) 3.6 mg/dL 2.3-4.7 [id number] 02:54:00 Test Item Value Reference Range Comments MAGNESIUM (BEAKER) (test jfrd=901) 2.4 mg/dL 1.6-2.6 BASIC METABOLIC [id number] 02:54:00 Test Item Value Reference Range Comments SODIUM (BEAKER) (test 138 meq/L 136-145 kktv=397) POTASSIUM (BEAKER) (test 3.7 meq/L 3.5-5.1 qpfx=307) CHLORIDE (BEAKER) (test 101 meq/L 98-107 mmld=579) CO2 (BEAKER) (test 27 meq/L 22-29 zkeh=726) BLOOD UREA NITROGEN 44 mg/dL 7-21 (BEAKER) (test stad=997) CREATININE (BEAKER) (test 1.30 mg/dL 0.57-1.25 yjty=264) GLUCOSE RANDOM (BEAKER) 131 mg/dL 70-105 (test vtot=088) CALCIUM (BEAKER) (test 8.9 mg/dL 8.4-10.2 hyxe=591) EGFR (BEAKER) (test 52 mL/min/1.73 sq m ESTIMATED GFR IS NOT afzz=5486) ACCURATE CREATININE CLEARANCE IN PREDICTING GLOMERULAR FILTRATION RATE. ESTIMATED GFR IS NOT APPLICABLE FOR DIALYSIS PATIENTS. VANCOMYCIN LEVEL, [id number] 02:53:00 Test Item Value Reference Range Comments VANCOMYCIN RANDOM (BEAKER) (test tvnr=806) 24.4 ug/mL Reference Range: No NormalsCALCIUM, [id number] 02:49:00 Test Item Value Reference Range Comments CALCIUM IONIZED (BEAKER) (test enhl=361) 1.15 mmol/L 1.12-1.27 PH, BLOOD (BEAKER) (test guwi=4430) 7.40 CBC (HEMOGRAM ONLY)2018-05-22 02:29:00 Test Item Value Reference Range Comments WHITE BLOOD CELL COUNT (BEAKER) (test qybw=162) 13.9 K/ L 3.5-10.5 RED BLOOD CELL COUNT (BEAKER) (test zdyp=744) 2.94 M/ L 4.63-6.08 HEMOGLOBIN (BEAKER) (test gyhz=953) 8.3 GM/DL 13.7-17.5 HEMATOCRIT (BEAKER) (test norw=224) 25.5 % 40.1-51.0 MEAN CORPUSCULAR VOLUME (BEAKER) (test ioxy=866) 86.7 fL 79.0-92.2 MEAN CORPUSCULAR HEMOGLOBIN (BEAKER) (test 28.2 pg 25.7-32.2 ghnd=317) MEAN CORPUSCULAR HEMOGLOBIN CONC (BEAKER) (test 32.5 GM/DL 32.3-36.5 peli=406) RED CELL DISTRIBUTION WIDTH (BEAKER) (test 15.9 % 11.6-14.4 riyj=846) PLATELET COUNT (BEAKER) (test dkrd=070) 67 K/CU MM 150-450 MEAN PLATELET VOLUME (BEAKER) (test ooxp=063) 11.8 fL 9.4-12.4 NUCLEATED RED BLOOD CELLS (BEAKER) (test 0 /100 WBC 0-0 hdwi=516) [id number] 00:28:00 Test Item Value Reference Range Comments PROTIME (BEAKER) (test yzop=017) 15.9 seconds 11.7-14.7 INR (BEAKER) (test sfnw=032) 1.3 <=5.9 PARTIAL THROMBOPLASTIN TIME (BEAKER) (test 170.7 seconds 22.5-36.0 ocwx=825) RECOMMENDED COUMADIN/WARFARIN INR THERAPY RANGESSTANDARD DOSE: 2.0 - 3.0 Includes: PROPHYLAXIS forvenous thrombosis, systemic embolization; TREATMENT for venous thrombosis and/or pulmonary embolus.HIGH RISK: Target INR is 2.5-3.5 for patients with mechanical heart valves.BASIC METABOLIC [id number] 13:37: 00 Test Item Value Reference Range Comments SODIUM (BEAKER) (test 139 meq/L 136-145 nfii=985) POTASSIUM (BEAKER) (test 3.8 meq/L 3.5-5.1 pxfq=890) CHLORIDE (BEAKER) (test 101 meq/L 98-107 pfcb=453) CO2 (BEAKER) (test 26 meq/L 22-29 ntst=162) BLOOD UREA NITROGEN 46 mg/dL 7-21 (BEAKER) (test hgif=509) CREATININE (BEAKER) (test 1.60 mg/dL 0.57-1.25 kear=145) GLUCOSE RANDOM (BEAKER) 160 mg/dL 70-105 (test nitc=311) CALCIUM (BEAKER) (test 9.1 mg/dL 8.4-10.2 vgav=704) EGFR (BEAKER) (test 41 mL/min/1.73 sq m ESTIMATED GFR IS NOT uihw=9390) ACCURATE CREATININE CLEARANCE IN PREDICTING GLOMERULAR FILTRATION RATE. ESTIMATED GFR IS NOT APPLICABLE FOR DIALYSIS PATIENTS. MR, MRA, BRAIN, WITHOUT [id number] 12:04:00Reason for exam:-> Ischemic Stroke EvaluationFINAL REPORT MRA Head and Neck CLINICAL HISTORY: Stroke TECHNIQUE: MRA of thehead utilizing 3-D rccl-zl-sduibq technique, with 3-D reconstructions.MRA of the neck utilizing 2-D and 3-D time- of-flight technique, with 3-D reconstructions. COMPARISON: None FINDINGS: There is no evidence for a cro[place] proximal branch vessel occlusion. There [...] vertebral arteries. IMPRESSION: No evidence for a [place] proximal branchvessel occlusion. No hemodynamically significant stenosis in the internal carotid arteries. 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 Signed: Jaycob Alvarado Verified Date/Time: 05/21/2018 12:04:26 Reading Location: [address] Neuro Reading Room MR, MRA, NECK, WITHOUT IV [id number] 12:04:00Reason for exam:->Ischemic Stroke EvaluationFINAL REPORT MRA Head and Neck CLINICAL HISTORY: Stroke TECHNIQUE: MRA of thehead utilizing 3-D tcbr-yw-vmfcuj technique, with 3-D reconstructions.MRA of the neck utilizing 2-D and 3-D wjwl-hb-lzxita technique, with 3-D reconstructions. COMPARISON: None FINDINGS: There is no evidence for a cro[place] proximal branch vessel occlusion. There [...] vertebral arteries. IMPRESSION: No evidence for a cro[place] proximal branchvessel occlusion. No hemodynamically significant stenosis in the internal carotid arteries. 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 Signed: Jaycob Alvarado Verified Date/Time: 05/21/2018 12:04:26 Reading Location: [address] Neuro Reading Room MR, BRAIN, WITHOUT [id number] 11:58:00Reason for exam:->Ischemic Stroke EvaluationFINAL REPORT MRI [...] Alvarado Verified Date/Time: 05/21/2018 11:58:08 Reading Location: [address] Neuro Reading Room RAD, CHEST, 1 VIEW, NON [id number] 10:54:00Reason for exam:->hypoxemiaShould this be performed at [...] [place] Verified Date/Time: 05/21/2018 10:54:40 Reading Location: [facility] B1 C013X Ortho Consult Reading Room HEMOGLOBIN [id number] 08:30:00 Test Item Value Reference Range Comments HEMOGLOBIN A1C (BEAKER) (test bjnn=057) 8.1 % 4.3-6.1 LIPID [id number] 07:31:00 Test Item Value Reference Range Comments TRIGLYCERIDES (BEAKER) (test nucd=327) 348 mg/dL CHOLESTEROL (BEAKER) (test aemy=134) 208 mg/dL HDL CHOLESTEROL (BEAKER) (test fria=853) 26 mg/dL LDL CHOLESTEROL CALCULATED (BEAKER) (test 112 mg/dL xfgq=908) Triglyceride Reference Range: Low Risk <150 Borderline 150- 199 High Risk 200-499 Very High Risk >=500Cholesterol Reference Range: Low Risk <200 Borderline 200-239 High Risk > 240HDL Cholesterol Reference Range: Low Risk >=60 High Risk <40LDL Cholesterol Reference Range: Optimal <100 Near Optimal 100-129 Borderline 130-159 High 160-189 Very High >=[id number] 04:49:00 Test Item Value Reference Range Comments PHOSPHORUS (BEAKER) (test qoyq=681) 6.4 mg/dL 2.3-4.7 [id number] 04:49:00 Test Item Value Reference Range Comments MAGNESIUM (BEAKER) (test pyez=199) 2.3 mg/dL 1.6-2.6 BASIC METABOLIC [id number] 04:49:00 Test Item Value Reference Range Comments SODIUM (BEAKER) (test 139 meq/L 136-145 vqkw=958) POTASSIUM (BEAKER) (test 3.8 meq/L 3.5-5.1 ucrw=990) CHLORIDE (BEAKER) (test 102 meq/L 98-107 qdex=359) CO2 (BEAKER) (test 23 meq/L 22-29 jsga=443) BLOOD UREA NITROGEN 49 mg/dL 7-21 (BEAKER) (test frbb=903) CREATININE (BEAKER) (test 1.96 mg/dL 0.57-1.25 ryoa=097) GLUCOSE RANDOM (BEAKER) 175 mg/dL 70-105 (test agmh=748) CALCIUM (BEAKER) (test 8.7 mg/dL 8.4-10.2 mtaf=658) EGFR (BEAKER) (test 33 mL/min/1.73 sq m ESTIMATED GFR IS NOT lajr=0650) ACCURATE CREATININE CLEARANCE IN PREDICTING GLOMERULAR FILTRATION RATE. ESTIMATED GFR IS NOT APPLICABLE FOR DIALYSIS PATIENTS. VITAMIN [id number] 04:11:00 Test Item Value Reference Range Comments VITAMIN B12 (BEAKER) (test zeon=990) 692 pg/mL 213-816 TSH/FREE T4 IF [id number] 04:11:00 Test Item Value Reference Range Comments THYROID STIMULATING HORMONE (BEAKER) (test 0.77 uIU/mL 0.35-4.94 scsi=818) CALCIUM, [id number] 03:53:00 Test Item Value Reference Range Comments CALCIUM IONIZED (BEAKER) (test wjpt=662) 1.12 mmol/L 1.12-1.27 PH, BLOOD (BEAKER) (test cyjs=1578) 7.35 CBC (HEMOGRAM ONLY)2018-05-21 03:16:00 Test Item Value Reference Range Comments WHITE BLOOD CELL COUNT (BEAKER) (test jlel=007) 16.4 K/ L 3.5-10.5 RED BLOOD CELL COUNT (BEAKER) (test jikl=623) 3.61 M/ L 4.63-6.08 HEMOGLOBIN (BEAKER) (test zozq=328) 10.1 GM/DL 13.7-17.5 HEMATOCRIT (BEAKER) (test lapf=163) 32.2 % 40.1-51.0 MEAN CORPUSCULAR VOLUME (BEAKER) (test kjca=467) 89.2 fL 79.0-92.2 MEAN CORPUSCULAR HEMOGLOBIN (BEAKER) (test 28.0 pg 25.7-32.2 ffof=423) MEAN CORPUSCULAR HEMOGLOBIN CONC (BEAKER) (test 31.4 GM/DL 32.3-36.5 lsio=503) RED CELL DISTRIBUTION WIDTH (BEAKER) (test 16.1 % 11.6-14.4 xkkj=893) PLATELET COUNT (BEAKER) (test eiwx=118) 81 K/CU MM 150-450 MEAN PLATELET VOLUME (BEAKER) (test kjoj=121) 11.0 fL 9.4-12.4 NUCLEATED RED BLOOD CELLS (BEAKER) (test 0 /100 WBC 0-0 oavv=059) EEG AWAKE AND [id number] 15:54:00Reason for exam:->AMSDate(s) of EEDATE OF REPORT: 05/20/2018ACC: [id number] Number: [id number] Location : Inpatient ICUStart time: 14:17Stop time: 14:38ICD-10: R56.9CPT Code: 73079 HISTORY: 87 y.o. RHM w/ severe who [...] Rooney MDNeurophysiology Fellow, PGY5 Betsey Tello NeurophysiologistCHI [facility] POCT- GLUCOSE [id number] 13:52:00 Test Item Value Reference Range Comments POC-GLUCOSE METER (BEAKER) 163 mg/dL 70-110 TESTED AT [facility] [address] [facility] (test jfwm=8502) [facility] [address] TROPONIN [id number] 11:59:00 Test Item Value Reference Range Comments TROPONIN I (BEAKER) (test dipr=189) 1.13 ng/mL 0.00-0.03 Troponin I (TnI) levels [...] acute neurological disease, and persistent tachyarrhythmia.COMPREHENSIVE METABOLIC [id number] 11:47:00 Test Item Value Reference Range Comments TOTAL PROTEIN (BEAKER) 5.7 gm/dL 6.0-8.3 (test eoec=825) ALBUMIN (BEAKER) (test 3.4 g/dL 3.5-5.0 susg=1921) ALKALINE PHOSPHATASE 42 U/L 40-150 (BEAKER) (test gjaf=797) BILIRUBIN TOTAL (BEAKER) 0.8 mg/dL 0.2-1.2 (test lymw=487) SODIUM (BEAKER) (test 139 meq/L 136-145 lyyj=772) POTASSIUM (BEAKER) (test 4.2 meq/L 3.5-5.1 cigp=097) CHLORIDE (BEAKER) (test 100 meq/L 98-107 cmgu=391) CO2 (BEAKER) (test 23 meq/L 22-29 myjz=757) BLOOD UREA NITROGEN 38 mg/dL 7-21 (BEAKER) (test dcad=661) CREATININE (BEAKER) (test 2.17 mg/dL 0.57-1.25 jtlz=476) GLUCOSE RANDOM (BEAKER) 129 mg/dL 70-105 (test ukoq=905) CALCIUM (BEAKER) (test 9.0 mg/dL 8.4-10.2 zwhm=801) AST (SGOT) (BEAKER) (test 27 U/L 5-34 lfef=290) ALT (SGPT) (BEAKER) (test 14 U/L 6-55 swcu=203) EGFR (BEAKER) (test 29 mL/min/1.73 sq m ESTIMATED GFR IS NOT oygo=0128) ACCURATE CREATININE CLEARANCE IN PREDICTING GLOMERULAR FILTRATION RATE. ESTIMATED GFR IS NOT APPLICABLE FOR DIALYSIS PATIENTS. CREATINE KINASE (CK), TOTAL AND [id number] 11:42:00 Test Item Value Reference Range Comments CREATINE KINASE TOTAL (BEAKER) (test tivn=606) 138 U/L 29-200 CREATINE KINASE-MB (BEAKER) (test jvap=883) 4.2 ng/mL 0.0-6.6 CREATINE KINASE-MB INDEX (BEAKER) (test qkxf=719) 3.0 % CK-MB Reference Range:<6.7 Normal6.7-10.0 Borderline>10.0 [id number] 11:36:00 Test Item Value Reference Range Comments PHOSPHORUS (BEAKER) (test wrxd=074) 5.4 mg/dL 2.3-4.7 [id number] 11:36:00 Test Item Value Reference Range Comments MAGNESIUM (BEAKER) (test kufb=745) 2.3 mg/dL 1.6-2.6 RAD, ABDOMEN/KUB, 1 VIEW [id number] 11:33:00Reason for exam:->Nasogastric tube insertionShould this be performed at the bedside?->YesFINAL REPORT Abdomen one view INDICATION: Nasogastric tube insertion COMPARISON: None available IMPRESSION: NG tube extends to the gastric body. The imaged bowel gas pattern is nonspecific. There are degenerative spine changes and incidental vascular calcifications. The imaged chest is similar to 2017. Signed: Kenan [place] Verified Date/Time: 05/20/2018 11: 33:02 Reading Location: [facility] Radiology Reading Room LACTIC ACID, VENOUS, WHOLE [id number] 11:32:00 Test Item Value Reference Range Comments LACTATE BLOOD VENOUS (2) (BEAKER) (test 2.1 mmol/L 0.5-2.2 ocwj=1470) Effective 04/02/2016: Units/Reference Range ChangeNew: 0.5-2.2 mmol/L Previous: 5 -20 mg/dLBLOOD GAS, [id number] 11:21:00 Test Item Value Reference Range Comments PH VENOUS (BEAKER) (test bzhz=983) 7.40 7.32-7.42 PCO2 VENOUS (BEAKER) (test ebdf=399) 45 mmHg 41-51 PO2 VENOUS (BEAKER) (test aemy=948) 26 mmHg 25-40 O2 SATURATION VENOUS (BEAKER) (test rjtt=407) 46.3 % 40.0-70.0 HCO3 VENOUS (BEAKER) (test cyhh=608) 27 mmol/L 21-29 BASE EXCESS VENOUS (BEAKER) (test uopb=869) 1.8 mmol/L -2.0-3.0 PATIENT TEMPERATURE (BEAKER) (test gaxk=9688) 36.9 C FIO2 (BEAKER) (test viju=8113) 36.0 % BASIC METABOLIC [id number] 05:05:00 Test Item Value Reference Range Comments SODIUM (BEAKER) (test 140 meq/L 136-145 xoto=280) POTASSIUM (BEAKER) (test 3.9 meq/L 3.5-5.1 Specimen slightly aywm=426) hemolyzed CHLORIDE (BEAKER) (test 105 meq/L 98-107 bldz=049) CO2 (BEAKER) (test 21 meq/L 22-29 xvxl=360) BLOOD UREA NITROGEN 31 mg/dL 7-21 (BEAKER) (test ohpp=412) CREATININE (BEAKER) (test 1.63 mg/dL 0.57-1.25 Specimen slightly jfaa=118) hemolyzed GLUCOSE RANDOM (BEAKER) 124 mg/dL 70-105 (test xuee=422) CALCIUM (BEAKER) (test 8.0 mg/dL 8.4-10.2 ovgy=882) EGFR (BEAKER) (test 40 mL/min/1.73 sq m ESTIMATED GFR IS NOT zleg=3086) ACCURATE CREATININE CLEARANCE IN PREDICTING GLOMERULAR FILTRATION RATE. ESTIMATED GFR IS NOT APPLICABLE FOR DIALYSIS PATIENTS. CBC (HEMOGRAM ONLY)2018-05-20 04:44:00 Test Item Value Reference Range Comments WHITE BLOOD CELL COUNT (BEAKER) (test rnha=346) 16.5 K/ L 3.5-10.5 RED BLOOD CELL COUNT (BEAKER) (test acvq=704) 3.86 M/ L 4.63-6.08 HEMOGLOBIN (BEAKER) (test fojk=634) 10.6 GM/DL 13.7-17.5 HEMATOCRIT (BEAKER) (test bwxo=664) 34.3 % 40.1-51.0 MEAN CORPUSCULAR VOLUME (BEAKER) (test asdc=877) 88.9 fL 79.0-92.2 MEAN CORPUSCULAR HEMOGLOBIN (BEAKER) (test 27.5 pg 25.7-32.2 wvag=187) MEAN CORPUSCULAR HEMOGLOBIN CONC (BEAKER) (test 30.9 GM/DL 32.3-36.5 otrt=414) RED CELL DISTRIBUTION WIDTH (BEAKER) (test 16.2 % 11.6-14.4 lvqm=371) PLATELET COUNT (BEAKER) (test oeee=887) 103 K/CU MM 150-450 MEAN PLATELET VOLUME (BEAKER) (test kert=606) 11.2 fL 9.4-12.4 NUCLEATED RED BLOOD CELLS (BEAKER) (test 0 /100 WBC 0-0 jiak=989) URINALYSIS W/ [id number] 00:09:00 Test Item Value Reference Range Comments COLOR (BEAKER) (test gfzg=936) Yellow CLARITY (BEAKER) (test lbgv=000) Clear SPECIFIC GRAVITY UA (BEAKER) (test xvsr=596) 1.017 1.001-1.035 PH UA (BEAKER) (test ftjr=224) 5.0 5.0-8.0 PROTEIN UA (BEAKER) (test lkzu=355) Negative Negative GLUCOSE UA (BEAKER) (test sqme=291) Negative Negative KETONES UA (BEAKER) (test smrk=282) Negative Negative BILIRUBIN UA (BEAKER) (test sfkl=453) Negative Negative BLOOD UA (BEAKER) (test zplm=257) Small Negative NITRITE UA (BEAKER) (test bngv=150) Negative Negative LEUKOCYTE ESTERASE UA (BEAKER) (test wjaf=814) Negative Negative UROBILINOGEN UA (BEAKER) (test ctao=848) 0.2 mg/dL 0.2-1.0 RBC UA (BEAKER) (test zhwk=312) 12 /HPF WBC UA (BEAKER) (test riwp=255) 1 /HPF MUCUS (BEAKER) (test xeut=9801) Rare AMORPHOUS CRYSTALS (BEAKER) (test rdir=8132) Occasional SOURCE(BEAKER) (test elka=0907) Urine, [place] RAD, CHEST, 1 VIEW, NON [id number] 21:46:00Reason for exam:->tavrShould this be performed at the bedside?->YesFINAL REPORT INDICATION: tavr COMPARISON: None. TECHNIQUE: Chest radiograph, single view, portable technique. 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 Intact median sternotomy wires noted. No pulmonary edema, aspiration, pneumothorax, or pleural effusion demonstrated. Signed: Vladislav Michael [facility] Verified Date/Time: 05/19/2018 21:46:23 Reading Location: [address] Consult Reading Room POCT-LACTIC ACID, [id number] 21:21:00 Test Item Value Reference Range Comments POC-LACTIC ACID, ARTERIAL 1.5 mmol/L 0.4-1.3 [address] (BEAKER) (test aima=9596) [place] [id number] POCT-BLOOD GASES, [id number] 21:21:00 Test Item Value Reference Range Comments TEMP, CELSIUS-POC (BEAKER) 37.1 (test rmiv=2176) FIO2-POC (BEAKER) (test 29 TESTED AT [address] pozm=6326) [place] [address] PH, ARTERIAL-POC (BEAKER) 7.468 7.350-7.450 (test hunk=2105) PCO2, ARTERIAL-POC (BEAKER) 34.4 mm Hg 35.0-45.0 (test ekxd=4147) PO2, ARTERIAL-POC (BEAKER) 63.0 mm Hg 80.0-90.0 (test qnsq=8020) SO2, ARTERIAL-POC (BEAKER) 93.0 % 96.0-97.0 (test glhj=7499) HCO3, ARTERIAL-POC (BEAKER) 24.9 meq/L 21.0-29.0 (test qmtm=7714) BASE EXCESS, ARTERIAL-POC 1.0 meq/L -2.0-3.0 (BEAKER) (test nywy=3904) [id number] 21:21:00 Test Item Value Reference Range Comments POC-SODIUM (BEAKER) (test 137 meq/L 135-148 TESTED AT [address] grcm=0450) [place] [address] [id number] 21:21:00 Test Item Value Reference Range Comments POC-POTASSIUM (BEAKER) (test 3.6 meq/L 3.6-5.5 TESTED AT [address] shth=6337) [place] [address] [id number] 21:21:00 Test Item Value Reference Range Comments POC-GLUCOSE (BEAKER) (test 152 mg/dL 70-110 TESTED AT [address] aivb=5900) [place] [address] POCT-CALCIUM [id number] 21:21:00 Test Item Value Reference Range Comments POC-CALCIUM IONIZED (BEAKER) 1.19 mmol/L 1.12-1.27 TESTED AT [address] (test apqp=1949) [place] [address] [id number] 21:21:00 Test Item Value Reference Range Comments POC-HEMATOCRIT (BEAKER) (test 32 % 40-50 TESTED AT [address] lugy=8903) [place] [address] [id number] 21:21:00 Test Item Value Reference Range Comments POC-HEMOGLOBIN (BEAKER) 10.9 g/dL 13.0-16.8 TESTED AT [address] (test wmuy=2898) [place] [address]TESTED AT [place] [address] TROPONIN [id number] 20:56:00 Test Item Value Reference Range Comments TROPONIN I (BEAKER) (test dlbr=683) 0.73 ng/mL 0.00-0.03 Troponin I (TnI) levels [...] and persistent tachyarrhythmia.CREATINE KINASE (CK), TOTAL AND [id number] 20:49:00 Test Item Value Reference Range Comments CREATINE KINASE TOTAL (BEAKER) (test ames=701) 41 U/L 29-200 CREATINE KINASE-MB (BEAKER) (test suxj=031) 3.5 ng/mL 0.0-6.6 CREATINE KINASE-MB INDEX (BEAKER) (test qegu=582) 8.5 % CK-MB Reference Range:<6.7 Normal6.7-10.0 Borderline>10.0 AbnormalCT, BRAIN/STROKE [id number] 20:46:00Reason for exam:-> altered mental statusFINAL REPORT [...] [place] Verified Date/Time: 05/19/2018 20:46:09 Reading Location: [facility] Radiology Reading Room [facility] METABOLIC [id number] 20: 42:00 Test Item Value Reference Range Comments SODIUM (BEAKER) (test 138 meq/L 136-145 anrb=705) POTASSIUM (BEAKER) (test 3.8 meq/L 3.5-5.1 gnwg=337) CHLORIDE (BEAKER) (test 100 meq/L 98-107 mjcp=726) CO2 (BEAKER) (test 26 meq/L 22-29 qcnn=194) BLOOD UREA NITROGEN 27 mg/dL 7-21 (BEAKER) (test zyhy=840) CREATININE (BEAKER) (test 1.41 mg/dL 0.57-1.25 cija=160) GLUCOSE RANDOM (BEAKER) 146 mg/dL 70-105 (test dgue=344) CALCIUM (BEAKER) (test 8.7 mg/dL 8.4-10.2 yekj=477) EGFR (BEAKER) (test 48 mL/min/1.73 sq m ESTIMATED GFR IS NOT dxme=7145) ACCURATE CREATININE CLEARANCE IN PREDICTING GLOMERULAR FILTRATION RATE. ESTIMATED GFR IS NOT APPLICABLE FOR DIALYSIS PATIENTS. [id number] 20:32:00 Test Item Value Reference Range Comments PROTIME (BEAKER) (test mnge=208) 14.2 seconds 11.7-14.7 INR (BEAKER) (test jlfd=469) 1.1 <=5.9 PARTIAL THROMBOPLASTIN TIME (BEAKER) (test 31.4 seconds 22.5-36.0 ovxs=006) RECOMMENDED COUMADIN/WARFARIN INR THERAPY RANGESSTANDARD DOSE: 2.0 - 3.0 Includes: PROPHYLAXIS forvenous thrombosis, systemic embolization; TREATMENT for venous thrombosis and/or pulmonary embolus.HIGH RISK: Target INR is 2.5-3.5 for patients with mechanical heart valves.CBC W/PLT COUNT & AUTO [id number] 20:30:00 Test Item Value Reference Range Comments WHITE BLOOD CELL COUNT (BEAKER) (test yxsr=637) 12.5 K/ L 3.5-10.5 RED BLOOD CELL COUNT (BEAKER) (test ygrn=275) 3.77 M/ L 4.63-6.08 HEMOGLOBIN (BEAKER) (test koyb=685) 10.4 GM/DL 13.7-17.5 HEMATOCRIT (BEAKER) (test pdup=359) 34.1 % 40.1-51.0 MEAN CORPUSCULAR VOLUME (BEAKER) (test ekst=439) 90.5 fL 79.0-92.2 MEAN CORPUSCULAR HEMOGLOBIN (BEAKER) (test 27.6 pg 25.7-32.2 fiot=782) MEAN CORPUSCULAR HEMOGLOBIN CONC (BEAKER) (test 30.5 GM/DL 32.3-36.5 pcna=296) RED CELL DISTRIBUTION WIDTH (BEAKER) (test 16.4 % 11.6-14.4 ymly=763) PLATELET COUNT (BEAKER) (test dlrt=881) 116 K/CU MM 150-450 MEAN PLATELET VOLUME (BEAKER) (test lqcn=337) 10.6 fL 9.4-12.4 NUCLEATED RED BLOOD CELLS (BEAKER) (test 0 /100 WBC 0-0 vglz=519) NEUTROPHILS RELATIVE PERCENT (BEAKER) (test 74 % hhai=754) LYMPHOCYTES RELATIVE PERCENT (BEAKER) (test 18 % kjys=964) MONOCYTES RELATIVE PERCENT (BEAKER) (test 6 % zmwq=783) EOSINOPHILS RELATIVE PERCENT (BEAKER) (test 1 % zmal=187) BASOPHILS RELATIVE PERCENT (BEAKER) (test 0 % qsdt=693) NEUTROPHILS ABSOLUTE COUNT (BEAKER) (test 9.27 K/ L 1.78-5.38 qycl=997) LYMPHOCYTES ABSOLUTE COUNT (BEAKER) (test 2.24 K/ L 1.32-3.57 fwbh=724) MONOCYTES ABSOLUTE COUNT (BEAKER) (test 0.73 K/ L 0.30-0.82 chzr=963) EOSINOPHILS ABSOLUTE COUNT (BEAKER) (test 0.13 K/ L 0.04-0.54 kxtj=222) BASOPHILS ABSOLUTE COUNT (BEAKER) (test 0.03 K/ L 0.01-0.08 cmwg=417) IMMATURE GRANULOCYTES-RELATIVE PERCENT (BEAKER) 1 % 0-1 (test qypf=4400) POCT-GLUCOSE [id number] 20:01:00 Test Item Value Reference Range Comments POC-GLUCOSE METER (BEAKER) 182 mg/dL 70-110 TESTED AT [facility] [address] [facility] (test olkd=7611) [facility] [address] [id number] 09:06:00 Test Item Value Reference Range Comments ACTIVATED CLOTTING TIME 329 sec TESTED AT [facility] [address] [facility] (BEAKER) (test njym=364) [facility] [address] B-TYPE NATRIURETIC FACTOR (BNP)2018-04-21 15:09:00 Test Item Value Reference Range Comments B-TYPE NATRIURETIC PEPTIDE (BEAKER) (test 785 pg/mL 0-100 jras=451) COMPREHENSIVE METABOLIC [id number] 15:02:00 Test Item Value Reference Range Comments TOTAL PROTEIN (BEAKER) 6.9 gm/dL 6.0-8.3 (test nqrk=062) ALBUMIN (BEAKER) (test 4.0 g/dL 3.5-5.0 tkdp=4311) ALKALINE PHOSPHATASE 42 U/L 40-150 (BEAKER) (test jqce=506) BILIRUBIN TOTAL (BEAKER) 0.5 mg/dL 0.2-1.2 (test sngj=121) SODIUM (BEAKER) (test 135 meq/L 136-145 bohk=719) POTASSIUM (BEAKER) (test 4.3 meq/L 3.5-5.1 mbjl=242) CHLORIDE (BEAKER) (test 99 meq/L 98-107 uxyu=000) CO2 (BEAKER) (test 25 meq/L 22-29 lufa=784) BLOOD UREA NITROGEN 31 mg/dL 7-21 (BEAKER) (test slkz=462) CREATININE (BEAKER) (test 1.39 mg/dL 0.57-1.25 whfb=059) GLUCOSE RANDOM (BEAKER) 194 mg/dL 70-105 (test quaw=466) CALCIUM (BEAKER) (test 9.7 mg/dL 8.4-10.2 tonx=465) AST (SGOT) (BEAKER) (test 12 U/L 5-34 benq=031) ALT (SGPT) (BEAKER) (test 15 U/L 6-55 sxjf=572) EGFR (BEAKER) (test 48 mL/min/1.73 sq m ESTIMATED GFR IS NOT jgqa=3987) ACCURATE CREATININE CLEARANCE IN PREDICTING GLOMERULAR FILTRATION RATE. ESTIMATED GFR IS NOT APPLICABLE FOR DIALYSIS PATIENTS. PROTHROMBIN TIME/[id number] 14:58:00 Test Item Value Reference Range Comments PROTIME (BEAKER) (test rpju=485) 12.8 seconds 11.7-14.7 INR (BEAKER) (test wwwd=637) 1.0 <=5.9 RECOMMENDED COUMADIN/WARFARIN INR THERAPY RANGESSTANDARD DOSE: 2.0 - 3.0 Includes: PROPHYLAXIS forvenous thrombosis, systemic embolization; TREATMENT for venous thrombosis and/or pulmonary embolus.HIGH RISK: Target INR is 2.5-3.5 for patients with mechanical heart valves.CBC W/PLT COUNT & AUTO [id number] 14:45:00 Test Item Value Reference Range Comments WHITE BLOOD CELL COUNT (BEAKER) (test joyn=822) 10.3 K/ L 3.5-10.5 RED BLOOD CELL COUNT (BEAKER) (test otew=482) 4.35 M/ L 4.63-6.08 HEMOGLOBIN (BEAKER) (test toqg=249) 11.9 GM/DL 13.7-17.5 HEMATOCRIT (BEAKER) (test jlot=822) 37.6 % 40.1-51.0 MEAN CORPUSCULAR VOLUME (BEAKER) (test vsug=940) 86.4 fL 79.0-92.2 MEAN CORPUSCULAR HEMOGLOBIN (BEAKER) (test 27.4 pg 25.7-32.2 mzsm=827) MEAN CORPUSCULAR HEMOGLOBIN CONC (BEAKER) (test 31.6 GM/DL 32.3-36.5 kntp=502) RED CELL DISTRIBUTION WIDTH (BEAKER) (test 16.5 % 11.6-14.4 paqk=634) PLATELET COUNT (BEAKER) (test omtb=107) 158 K/CU MM 150-450 MEAN PLATELET VOLUME (BEAKER) (test ukqh=263) 11.1 fL 9.4-12.4 NUCLEATED RED BLOOD CELLS (BEAKER) (test 0 /100 WBC 0-0 zrcx=992) NEUTROPHILS RELATIVE PERCENT (BEAKER) (test 73 % gflr=994) LYMPHOCYTES RELATIVE PERCENT (BEAKER) (test 19 % hrot=023) MONOCYTES RELATIVE PERCENT (BEAKER) (test 6 % uvhb=603) EOSINOPHILS RELATIVE PERCENT (BEAKER) (test 1 % fncw=906) BASOPHILS RELATIVE PERCENT (BEAKER) (test 0 % jpju=624) NEUTROPHILS ABSOLUTE COUNT (BEAKER) (test 7.54 K/ L 1.78-5.38 gqtb=579) LYMPHOCYTES ABSOLUTE COUNT (BEAKER) (test 1.96 K/ L 1.32-3.57 jyom=480) MONOCYTES ABSOLUTE COUNT (BEAKER) (test 0.61 K/ L 0.30-0.82 cuwc=400) EOSINOPHILS ABSOLUTE COUNT (BEAKER) (test 0.09 K/ L 0.04-0.54 lyct=413) BASOPHILS ABSOLUTE COUNT (BEAKER) (test 0.03 K/ L 0.01-0.08 flic=352) IMMATURE GRANULOCYTES-RELATIVE PERCENT (BEAKER) 1 % 0-1 (test jprp=2795) CT, CTA [id number] 12:54:00Addendum BeginsREPORT STATUS:A Addendum: I agree with the previously described non vascular findings.. Additionally, the lungs demonstrate fibrotic changes which are most pronounced in the bilateral bases. Biapical pleural-parenchymal scarring is present. Signed: Dejon BlandMDReport Verified Date/Time: 04/20/2018 12:54: 28 Reading Location: [place] [address] Angio Body Reading RoomAddendum EndsFINAL REPORT CT [...] 5. An addendum will be dictated bythe Bookstore Manager Radiologist regarding the nonvascular findings. Signed: Puneet Espinoza Verified Date/Time: 14:19:03 Reading Location: [place] [address], CTA, [id number] 12:54:00Addendum BeginsREPORT STATUS:A Addendum: I agree with the previously described non vascular findings.. Additionally, the lungs demonstrate fibrotic changes which are most pronounced in the bilateral bases. Biapical pleural-parenchymal scarring is present. Signed : Dejon BlandMDReport Verified Date/Time: 04/20/2018 12:54:28 Reading Location: [place] [address] Angio Body Reading RoomAddendum EndsFINAL REPORT CT [...] 5. An addendum will be dictated bythe Bookstore Manager Radiologist regarding the nonvascular findings. Signed: Puneet Espinoza [place] Verified Date/Time: 14:19:03 Reading Location: [place] [address] Cardiology MRI POCT- [id number] 09:37:00 Test Item Value Reference Range Comments POC-CREATININE ([employer]) 1.3 mg/dL 0.6-1.3 TESTED AT [facility] [address] [place] [address] (test [id number]) [facility] [id number] POC-EGFR ([employer]) (test 52 mL/min/1.73M2 [id number])
[2019-04-07] MEDS ORDERED: Levofloxacin500mg IV 500 MG/100 ML BAG IV ONE (10:19)
[2019-04-07 10:27] LABS: Absolute Lymphocytes (CBC) 3.3 K/uL (0.7-4.9); Absolute Monocytes 1.2 K/uL (0.1-1.3); Absolute Neutrophil 11.1 K/uL (1.8-8.0); Basophils % 0.4 % (0-1.3); Eosinophils % 0.9 % (0-4.4); Hematocrit 32.6 % (39.6-49.0); Lymphocytes % 20.7 % (15.3-44.8); MPV 8.5 fL (7.6-11.3); Monocytes % 7.6 % (3.3-12.3); RBC Red Blood Cell Count 4.26 M/uL (4.33-5.43)
[2019-04-07 10:28] LABS: Urine Blood TRACE (NEG); Urine Glucose NEGATIVE (NEG); Urine Protein 1+ (NEG); Urine Specific Gravity 1.015 (1.005-1.030)
[2019-04-07 10:31] LABS: Protime INR 2.79
--- NOTE | 2019-04-07 10:37 | RAD REPORT ---
EXAM DESCRIPTION: RAD - Chest Single View - 04/07/2019 10:32 am CLINICAL HISTORY: MALAISE Chest pain. COMPARISON: Chest Single View dated 03/19/2019; Chest Single View dated 10/19/2018; Chest Single View dated 07/11/2018; Chest Single View dated 02/13/2018 FINDINGS: Portable technique limits examination quality. The lungs are emphysematous with minimal areas of atelectasis suspected in both lung bases. Chronic l eft pleural thickening is present. The heart is normal in size. Sternotomy wires noted.
[2019-04-07 10:40] LABS: ALT/SGPT 15 U/L (12-78); AST/SGOT 13 U/L (15-37); Albumin 3.1 g/dL (3.4-5.0); Alkaline Phosphatase 90 U/L (45-117); BUN Blood Urea Nitrogen 22 mg/dL (7-18); Bicarbonate 29 mmol/L (21-32); Bilirubin Direct < 0.1 mg/dL (0-0.2); Bilirubin Total 0.5 mg/dL (0.2-1.0); CKMB Creatine Kinase MB < 1.0 ng/mL (0.3-3.6); Creatine Phosphokinase 17 U/L (39-308); Glucose Level 119 mg/dL (74-106); Lipase 107 U/L (73-393); Potassium 3.9 mmol/L (3.5-5.1); Protein, Total 7.1 g/dL (6.4-8.2); Sodium Level 138 mmol/L (136-145); Troponin (Emerg Dept Use Only) 0.02 ng/mL (0.0-0.045)
--- NOTE | 2019-04-07 12:05 | RAD REPORT ---
EXAM DESCRIPTION: CT - Head Brain Wo Cont - 04/07/2019 11:57 am CLINICAL HISTORY: Weakness, transient alteration of awareness COMPARISON: CT December 2018 TECHNIQUE: Axial 5 mm thick images of the head were obtained without IV contrast. All CT scans are performed using dose optimization technique as appropriate and may include automated exposure control or mA/KV adjustment according to patient size. FINDINGS: No intracranial hemorrhage, mass, edema or shift of mid-line structures. No acute cortical based infarction. No cortical edema or sulcal effacement. The patient has advanced atrophy and advan alivia chronic ischemic change. Ventricles are in proportion to the volume loss. Dense arterial tree dharmesh cifications are present. Mastoid air cells and visualized portions of the paranasal sinuses are clear of significant finding. No acute bony findings. IMPRESSION: Advanced atrophy and chronic ischemic change similar to December 2018. No hemorrhage or acute intracranial finding identified. Chronic ischemic changes can mask nonhemorrhagic acute infarction. MR brain followup can be obtained if there is ongoing concern for acute ischemia.
[2019-04-07 12:29] LABS: Urine Amorphous Sediment 3+ /HPF (NONE SEEN); Urine Bacteria <20 /HPF (NONE SEEN); Urine Culture Reflex Order REFLEXED; Urine RBC <5 /HPF (NONE SEEN)
--- NOTE | 2019-04-07 12:35 | EDPHYS ---
Physician Documentation [facility] Name: Victor Hugo Damon Age: 88 yrs Sex: Male : 1930 Arrival Date: 04/07/2019 Time: 09:25 Bed 7 Private MD: ED Physician Munir Garibay HPI: 04/07 09:53 This 88 yrs old Male presents to ER via EMS with complaints of fever and AMS. kdr 09:53 [facility] this [facility] for AMS and a low grade fever. kdr There is little other information available other than that the patient is normally A\T\Ox4. He has no focal c/o and is now only oriented to person (with coaxing). . Onset: The symptoms/episode began/occurred this morning. Severity of symptoms: At their worst the symptoms were mild moderate just prior to arrival, in the emergency department the symptoms are unchanged. It is unknown whether or not the patient has had similar symptoms in the past. It is unknown whether or not the patient has recently seen a physician. Historical: - Allergies: 09:35 PENICILLINS; hb - Home Meds: 09:35 acetaminophen 325 mg Oral tab 2 tabs every 4 hours for Pain [Active]; aspirin 81 mg hb Oral TbEC 1 tab once daily [Active]; bisacodyl 5 mg Oral TbEC as needed for constipation [Active]; gabapentin 300 mg Oral cap nightly [Active]; Gavilax 17 gram Oral pwpk 1 packet once daily [Active]; I-Kary 1,000 unit-200 mg-60 unit-2 mg Oral tab twice a day [Active]; losartan 50 mg Oral tab 1 tab once daily [Active]; melatonin 3 mg Oral tab nightly [Active]; Myrbetriq 25 mg Oral Tb24 1 tab once daily [Active]; nifedipine 90 mg Oral TbER once daily [Active]; potassium chloride 10 mEq Oral cpER 1 cap once daily [Active]; prednisone 20 mg Oral tab 1 tab once daily [Active]; torsemide 10 mg oral tab [Active]; tramadol 50 mg Oral tab twice a day [Active]; warfarin 4 mg Oral tab 1 tab once daily [Active]; propranolol 80 mg Oral Cs24 1 cap once daily [Active]; - PMHx: 09:35 CAD; Atrial Fib; Diabetes - NIDDM; CVA; Hypertension; hb - PSHx: 09:35 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 - Social history:: Smoking status: Patient/guardian denies using tobacco, Smoking status: unknown. - Ebola Screening: : No symptoms or risks identified at this time No symptoms or risks identified at this time. ROS: 09:53 Constitutional: Unable to obtain due to AMS kdr 09:53 Unable to obtain ROS due to altered mental status. Exam: 09:53 Constitutional: This is a well developed, well nourished patient who is awake, kdr confused but in no acute distress. Head/Face: Normocephalic, atraumatic. Eyes: Pupils equal round and reactive to light, extra-ocular motions intact. Lids and lashes normal. Conjunctiva and sclera are non-icteric and not injected. Cornea within normal limits. Periorbital areas with no swelling, redness, or edema. Neck: Trachea midline, no thyromegaly or masses palpated, and no cervical lymphadenopathy. Supple, full range of motion without nuchal rigidity, or vertebral point tenderness. No Meningismus. Chest/axilla: Normal chest wall appearance and motion. Nontender with no deformity. No lesions are appreciated. Cardiovascular: Regular rate and rhythm with a normal S1 and S2. No gallops, murmurs, or rubs. Normal PMI, no JVD. No pulse deficits. Respiratory: Lungs have equal breath sounds bilaterally, clear to auscultation and percussion. No rales, rhonchi or wheezes noted. No increased work of breathing, no retractions or nasal flaring. Abdomen/GI: Soft, non-tender, with normal bowel sounds. No distension or tympany. No guarding or rebound. No evidence of tenderness throughout. Back: No spinal tenderness. No costovertebral tenderness. Full range of motion. Skin: Warm, dry with normal turgor. Normal color with no rashes, no lesions, and no evidence of cellulitis. MS/ Extremity: Pulses equal, no cyanosis. Neurovascular intact. Full, normal range of motion. Neuro: Awake and alert, GCS 15, oriented to person, place, time, and situation. Cranial nerves II-XII grossly intact. Motor strength 5/5 in all extremities. Sensory grossly intact. Cerebellar exam normal. Normal gait. Psych: Awake, alert, with orientation to person, place and time. Behavior, mood, and affect are within normal limits. Vital Signs: 09:25 BP 157 / 79; Pulse 80; Resp 54; Temp 99; Pulse Ox 97% on R/A; Weight 87.09 kg; Height 6 hb ft. (182.88 cm); Pain 0/10; 10:04 BP 123 / 55; Pulse 75; Resp 16; Temp 99.6(O); Pulse Ox 97% on R/A; mh5 11:25 BP 118 / 47; Pulse 69; Resp 20; Temp 98.3(O); Pulse Ox 96% on R/A; mh5 12:18 BP 116 / 53; Pulse 63; Resp 18; Temp 98.0(O); Pulse Ox 100% on R/A; mh5 13:30 BP 118 / 54; Pulse 62; Resp 18; Temp 98.1; Pulse Ox 98% on R/A; Pain 0/10; ph 14:09 BP 115 / 63; Pulse 61; Resp 20; Pulse Ox 99% on R/A; mh5 09:25 Body Mass Index 26.04 (87.09 kg, 182.88 cm) hb MDM: 12:34 Patient medically screened. kdr 12:38 Data reviewed: vital signs, nurses notes, lab test result(s), radiologic studies. kdr Counseling: I had a detailed discussion with the patient and/or guardian regarding: the historical points, exam findings, and any diagnostic results supporting the discharge/admit diagnosis, lab results, radiology results. ED course: The patient is stable and labs look similar to 03/19 labs drawn. 04/07 09:36 Order name: Basic Metabolic Panel ph 04/07 09:36 Order name: Blood Culture Adult (2) ph 04/07 09:36 Order name: CBC with Diff ph 04/07 09:36 Order name: Ckmb ph 04/07 09:36 Order name: CPK ph 04/07 09:36 Order name: Lactate; Complete Time: 10:52 ph 04/07 09:36 Order name: LFT's; Complete Time: 10:52 ph 04/07 09:36 Order name: Lipase; Complete Time: 10:52 ph 04/07 09:36 Order name: Procalcitonin ph 04/07 09:36 Order name: Protime (+inr); Complete Time: 10:52 ph 04/07 09:36 Order name: Ptt, Activated; Complete Time: 10:52 ph 04/07 09:36 Order name: Troponin (emerg Dept Use Only); Complete Time: 10:52 ph 04/07 09:36 Order name: Urine Microscopic Only; Complete Time: 12:35 ph 04/07 09:38 Order name: Basic Metabolic Panel; Complete Time: 10:52 EDMS 04/07 09:36 Order name: Chest Single View XRAY; Complete Time: 10:52 ph 04/07 09:36 Order name: Accucheck; Complete Time: 10:10 ph 04/07 09:36 Order name: Cardiac monitoring; Complete Time: 09:41 ph 04/07 09:36 Order name: EKG - Nurse/Tech; Complete Time: 10:06 ph 04/07 09:38 Order name: Blood Culture EDDE 04/07 09:38 Order name: CBC with Automated Diff; Complete Time: 10:52 EDMS 04/07 09:38 Order name: CKMB Creatine Kinase MB; Complete Time: 10:52 EDMS 04/07 09:38 Order name: Creatine Phosphokinase; Complete Time: 10:52 EDMS 04/07 10:05 Order name: Urine Dipstick--Ancillary (enter results); Complete Time: 10:52 eb 04/07 10:59 Order name: Glucose, Ancillary Testing; Complete Time: 11:29 EDMS 04/07 11:30 Order name: CT Head Brain wo Cont; Complete Time: 12:25 kdr 04/07 12:01 Order name: EKG Electrocardiogram EDMS 04/07 12:32 Order name: Urine Culture EDMS 04/07 14:11 Order name: Diet Regular; Complete Time: 14:11 ph 04/07 09:36 Order name: IV Saline Lock - Large Bore; Complete Time: 09:42 ph 04/07 09:36 Order name: Labs collected and sent; Complete Time: 10:06 ph 04/07 09:36 Order name: O2 Per Protocol; Complete Time: 09:42 ph 04/07 09:36 Order name: O2 Sat Monitoring; Complete Time: 09:42 ph 04/07 09:36 Order name: Urine Dipstick-Ancillary (obtain specimen); Complete Time: 10:07 ph Administered Medications: 09:50 Drug: NS 0.9% (30 ml/kg) 30 ml/kg {Note: 1L NS given initially, will reassess need for ph further fluids after labs return.} Route: IV; Rate: bolus; Site: right antecubital; 13:27 Follow up: Response: No adverse reaction; IV Status: Completed infusion; IV Intake: ph 1000ml 10:12 Drug: LevaQUIN 500 mg Volume: 100 ml; Route: IVPB; Infused Over: 60 mins; Site: right ph antecubital; 11:15 Follow up: Response: No adverse reaction; IV Status: Completed infusion ph Point of Care Testing: Blood Glucose: 10:10 Blood Glucose: 135 mg/dL; mh5 Ranges: Critical Glucose Levels:Adult <50 mg/dl or >400 mg/dl <40 mg/dl or >180 mg/dl Disposition: 04/07/19 12:34 Discharged to Home. Impression: Confusion. - Condition is Stable. - Discharge Instructions: Confusion. - Medication Reconciliation Form, Thank You Letter form. - Follow up: Private Physician; When: 2 - 3 days; Reason: If symptoms return, Further diagnostic work-up, Recheck today's complaints, Continuance of care, Re-evaluation by your physician. - Problem is new. - Symptoms are unchanged. Signatures: Dispatcher [employer] EDMS Munir Garibay MD MD [facility] Joan Puckett RN RN Zoe Jones RN RN Ester Gonzalez Corrections: (The following items were deleted from the chart) 14:52 12:34 04/07/2019 12:34 Discharged to Home. Impression: Confusion. Condition is Stable. eb Forms are Medication Reconciliation Form, Thank You Letter, Antibiotic Education, Prescription Opioid Use. Follow up: Private Physician; When: 2 - 3 days; Reason: If symptoms return, Further diagnostic work-up, Recheck today's complaints, Continuance of care, Re-evaluation by your physician. Problem is new. Symptoms are unchanged. kdr
--- NOTE | 2019-04-07 12:35 | ER ---
Nurse's Notes [facility] Name: Victor Hugo Damon Age: 88 yrs Sex: Male : 1930 Arrival Date: 04/07/2019 Time: 09:25 Bed 7 Private MD: Diagnosis: Confusion Presentation: 04/07 09:28 Presenting complaint: EMS states: Pt from [facility], was dx w/ a UTI recently but staff ph was unsure if antibiotics were filled, pt normally A\T\O x 4 but is only oriented to person, AMS and generalized weakness began yesterday, BP 140s/70s HR 70s, normal respirations, oral temp 100.4, 1 gram of Tylenol and approx 200 mL NS given, BGL 129. Transition of care: patient was received from another setting of care (long-term care facility), [facility]. Onset of symptoms was April 07, 2019. Risk Assessment: Do you want to hurt yourself or someone else? Patient reports no desire to harm self or others. Initial Sepsis Screen: Does the patient meet any 2 criteria? Altered Mental Status. Does the patient have a suspected source of infection? Yes: Dysuria/Frequency/Urgency/UTI. Care prior to arrival: Medication(s) given: Normal saline infusion, 200 mL Tylenol, 1000 mg, IV initiated. 20 GA, in the right antecubital area, Glucose check: 129. 09:28 Method Of Arrival: EMS: [facility] ph 09:28 Acuity: ESTHELA 2 ph Historical: - Allergies: 09:35 PENICILLINS; hb - Home Meds: 09:35 acetaminophen 325 mg Oral tab 2 tabs every 4 hours for Pain [Active]; aspirin 81 mg hb Oral TbEC 1 tab once daily [Active]; bisacodyl 5 mg Oral TbEC as needed for constipation [Active]; gabapentin 300 mg Oral cap nightly [Active]; Gavilax 17 gram Oral pwpk 1 packet once daily [Active]; I-Kary 1,000 unit-200 mg-60 unit-2 mg Oral tab twice a day [Active]; losartan 50 mg Oral tab 1 tab once daily [Active]; melatonin 3 mg Oral tab nightly [Active]; Myrbetriq 25 mg Oral Tb24 1 tab once daily [Active]; nifedipine 90 mg Oral TbER once daily [Active]; potassium chloride 10 mEq Oral cpER 1 cap once daily [Active]; prednisone 20 mg Oral tab 1 tab once daily [Active]; torsemide 10 mg oral tab [Active]; tramadol 50 mg Oral tab twice a day [Active]; warfarin 4 mg Oral tab 1 tab once daily [Active]; propranolol 80 mg Oral Cs24 1 cap once daily [Active]; - PMHx: 09:35 CAD; Atrial Fib; Diabetes - NIDDM; CVA; Hypertension; hb - PSHx: 09:35 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 - Social history:: Smoking status: Patient/guardian denies using tobacco, Smoking status: unknown. - Ebola Screening: : No symptoms or risks identified at this time No symptoms or risks identified at this time. Screenin:34 Abuse screen: Denies threats or abuse. Denies injuries from another. Nutritional ph screening: No deficits noted. Tuberculosis screening: No symptoms or risk factors identified. Fall Risk No fall in past 12 months (0 pts). No secondary diagnosis (0 pts). IV access (20 points). Ambulatory Aid- None/Bed Rest/Nurse Assist (0 pts). Gait- Weak (10 pts.). Mental Status- Overestimates/Forgets Limitations (15 pts.). Total Handy Fall Scale indicates High Risk Score (45 or more points). Fall prevention measures have been instituted. Side Rails Up X 2 Frequent Obs/Assessments Occuring As available patient and family educated on Fall Prevention Program and Strategies. Assessment: 09:33 General: Appears in no apparent distress. comfortable, well groomed, Behavior is calm, ph cooperative. Pain: Denies pain. Neuro: Level of Consciousness is awake, alert, obeys commands, Oriented to person. Cardiovascular: Capillary refill < 3 seconds in bilateral fingers Patient's skin is warm and dry. Respiratory: Airway is patent Respiratory effort is even, unlabored, Respiratory pattern is regular, symmetrical. Derm: Skin is intact, is fragile, is thin, with poor turgor. Musculoskeletal: Circulation, motion, and sensation intact. 11:00 Reassessment: Patient appears in no apparent distress at this time. No changes from ph previously documented assessment. Patient and/or family updated on plan of care and expected duration. Pain level reassessed. 12:00 Reassessment: Patient appears in no apparent distress at this time. Patient and/or ph family updated on plan of care and expected duration. Pain level reassessed. 13:54 Reassessment: Patient appears in no apparent distress at this time. Patient and/or ph family updated on plan of care and expected duration. Pain level reassessed. Pt resting quietly, oriented to person and place, reports called to Horacio at [facility] who stated that she would attempt and arrange transportation back to facility since pt's family is not present. 14:45 Reassessment: Patient appears in no apparent distress at this time. No changes from previously documented assessment. Staff from [facility] at bedside, pt taken back to facility. Vital Signs: 09:25 BP 157 / 79; Pulse 80; Resp 54; Temp 99; Pulse Ox 97% on R/A; Weight 87.09 kg; Height 6 hb ft. (182.88 cm); Pain 0/10; 10:04 BP 123 / 55; Pulse 75; Resp 16; Temp 99.6(O); Pulse Ox 97% on R/A; mh5 11:25 BP 118 / 47; Pulse 69; Resp 20; Temp 98.3(O); Pulse Ox 96% on R/A; mh5 12:18 BP 116 / 53; Pulse 63; Resp 18; Temp 98.0(O); Pulse Ox 100% on R/A; mh5 13:30 BP 118 / 54; Pulse 62; Resp 18; Temp 98.1; Pulse Ox 98% on R/A; Pain 0/10; ph 14:09 BP 115 / 63; Pulse 61; Resp 20; Pulse Ox 99% on R/A; mh5 09:25 Body Mass Index 26.04 (87.09 kg, 182.88 cm) hb ED Course: 09:25 Patient arrived in ED. hb 09:25 Munir Garibay MD is Attending Physician. kdr 09:28 Joan Puckett, LOLLY is Primary Nurse. ph 09:32 Triage completed. ph 09:34 Patient has correct armband on for positive identification. Placed in gown. Bed in low ph position. Call light in reach. Side rails up X2. engagement quality consultant on. Pulse ox on. NIBP on. Warm blanket given. 09:35 Arm band placed on. ph 10:04 Initial lab(s) drawn, by ED staff, sent to lab. Urine collected: clean catch specimen, [facility] cloudy, Amount Voided: 240mL EKG done, by ED staff, reviewed by Munir Garibay MD. 10:06 Urine Dipstick--Ancillary (enter results) Sent. 5 10:06 Creatine Phosphokinase Sent. 5 10:06 CKMB Creatine Kinase MB Sent. 5 10:06 CBC with Automated Diff Sent. 5 10:06 Blood Culture Sent. 5 10:06 Basic Metabolic Panel Sent. 5 10:07 Basic Metabolic Panel Sent. 5 10:07 Lactate Sent. 5 10:07 LFT's Sent. 5 10:07 Lipase Sent. 5 10:07 Procalcitonin Sent. 5 10:07 Protime (+inr) Sent. [facility] 10:07 Ptt, Activated Sent. [facility] 10:07 Troponin (emerg Dept Use Only) Sent. [facility] 10:07 Urine Microscopic Only Sent. 5 10:11 Blood Culture Adult (2) Sent. 5 10:11 CBC with Diff Sent. [facility] 10:11 Ckmb Sent. 5 10:11 CPK Sent. 5 10:29 X-ray completed. Portable x-ray completed in exam room. Patient tolerated procedure sw well. 10:30 Chest Single View XRAY In Process Unspecified. EDMS 11:55 CT completed. Patient tolerated procedure well. Patient moved to CT via stretcher. [email or web address] Patient moved to CT Patient moved back from CT. 11:59 CT Head Brain wo Cont In Process Unspecified. EDMS 13:56 No provider procedures requiring assistance completed. ph 14:50 IV discontinued, intact, bleeding controlled, No redness/swelling at site. Pressure ph dressing applied. Administered Medications: 09:50 Drug: NS 0.9% (30 ml/kg) 30 ml/kg {Note: 1L NS given initially, will reassess need for ph further fluids after labs return.} Route: IV; Rate: bolus; Site: right antecubital; 13:27 Follow up: Response: No adverse reaction; IV Status: Completed infusion; IV Intake: ph 1000ml 10:12 Drug: LevaQUIN 500 mg Volume: 100 ml; Route: IVPB; Infused Over: 60 mins; Site: right ph antecubital; 11:15 Follow up: Response: No adverse reaction; IV Status: Completed infusion ph Point of Care Testing: Blood Glucose: 10:10 Blood Glucose: 135 mg/dL; 5 Ranges: Intake: 13:27 IV: 1000ml; Total: 1000ml. ph Outcome: 12:34 Discharge ordered by . kdr 14:52 Patient left the ED. eb 14:52 Discharged to detention. ph 14:52 Condition: good 14:52 Discharge instructions given to detention, Instructed on discharge instructions, follow up and referral plans. Signatures: Dispatcher [employer] EDMS Munir Garibay MD MD kdr Hall, Patricia, RN RN Nelson, Zoe Churchill RN RN Ruba Mariee [facility] [place], Ester Mckeon, Pmea lugoNitish Corrections: (The following items were deleted from the chart) 09:26 09:25 BP 157 / 79; Pulse 80bpm; Resp 54bpm; Pulse Ox 97% RA; Temp 99F; 78.02 kg; Height hb 6 ft.; BMI: 23.3; Pain 0/10; hb
[2019-04-07 15:02] VITALS: TEMP 98.1
[2019-04-07 15:04] VITALS: BP 115/63; O2SAT 99
--- NOTE | 2019-04-08 07:15 | EKG ---
Test Date: 2019-04-07 Test Time: 09:28:53 Poising Inspector: MARYLU MEASUREMENT RESULTS: Intervals: Rate: 74 OK: 196 QRSD: 86 QT: 386 QTc: 428 [place]: P: 68 OK: 196 QRS: 27 T: 98 INTERPRETIVE STATEMENTS: Normal sinus rhythm with sinus arrhythmia Possible Left atrial enlargement Nonspecific ST abnormality Abnormal QRS-T angle, consider primary T wave abnormality Abnormal ECG Compared to ECG 03/19/2019 12:42:07 T-wave abnormality now present Atrial premature complex(es) no longer present Possible ischemia no longer present Prolonged QT interval no longer present ST (T wave) deviation still present Electronically Signed On 04-08-19 07:11:51 CDT by Ian Wilson
== END 2019-04-07 14:52 | disposition home or self-care (01) ==
LOC: ER 09:19
DX: R41.0 Disorientation, unspecified (principal); I25.10 Atherosclerotic heart disease of native coronary artery without angina pectoris; I10 Essential (primary) hypertension; E11.9 Type 2 diabetes mellitus without complications; I48.91 Unspecified atrial fibrillation; Z79.01 Long term (current) use of anticoagulants; Z79.82 Long term (current) use of aspirin; Z86.73 Personal history of transient ischemic attack (TIA), and cerebral infarction without residual deficits
CPT/HCPCS: 36415; 70450; 71045; 80048; 80076; 81003; 81015; 82550; 82553; 82962; 83605; 83690; 84145; 84484; 85025; 85610; 85730; 87040; 87086; 87088; 93005; 96365; 96366; 99285

== ENCOUNTER 2019-04-27 10:44 | Day surgery (SDC) | payer OTHER ==
[2019-04-26 14:17] LABS: Absolute Lymphocytes (CBC) 2.6 K/uL (0.7-4.9); Absolute Monocytes 0.5 K/uL (0.1-1.3); Absolute Neutrophil 8.1 K/uL (1.8-8.0); Basophils % 0.2 % (0-1.3); Eosinophils % 0.2 % (0-4.4); Hematocrit 32.9 % (39.6-49.0); Lymphocytes % 22.9 % (15.3-44.8); MPV 8.8 fL (7.6-11.3); Monocytes % 4.3 % (3.3-12.3); RBC Red Blood Cell Count 4.34 M/uL (4.33-5.43)
[2019-04-26 14:19] LABS: Protime INR 2.84
[2019-04-26 14:23] LABS: Potassium 4.1 mmol/L (3.5-5.1)
--- NOTE | 2019-04-26 14:36 | RAD REPORT ---
EXAM DESCRIPTION: RAD - Chest Pa And Lat (2 Views) - 04/26/2019 2:25 pm CLINICAL HISTORY: Preop chest, pending soft tissue mass removal COMPARISON: April 07, 2019 TECHNIQUE: PA and lateral views of the chest were obtained. FINDINGS: The lungs are slightly underinflated. Chronic interstitial lung disease is present slightl y less pronounced than seen previously. Left costophrenic angle blunting is less pronounced. Currentl y no measurable pleural effusion. No failure or volume overload suspected. Heart size is normal and central vasculature is within normal limits. No pneumothorax. No acute bony finding noted. No aort ic abnormality. IMPRESSION: Chronic interstitial lung disease is present similar or less prominent than seen April 07 . Suspected small left pleural effusion on the left is no longer identifiable.
--- NOTE | 2019-04-26 15:38 | EKG ---
Test Date: 2019-04-26 Test Time: 13:40:18 Technical Staff Engineer: AMOS MEASUREMENT RESULTS: Intervals: Rate: 77 WI: 152 QRSD: 82 QT: 388 QTc: 439 [place]: P: 37 WI: 152 QRS: 19 T: 139 INTERPRETIVE STATEMENTS: Sinus rhythm with premature atrial complexes ST & T wave abnormality, consider inferolateral ischemia Abnormal ECG Compared to ECG 04/07/2019 09:28:53 Atrial premature complex(es) now present Possible ischemia now present Sinus arrhythmia no longer present T-wave abnormality no longer present ST (T wave) deviation still present Electronically Signed On 04-26-19 15:37:27 CDT by Ian Wilson
--- OUTSIDE RECORDS SUMMARY | 2019-04-27 10:49 | XMS REPORT | Clinical Summary ---
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 Shelf Model / Identifier Expiration Date Serial / Lot Valve Heart Pay[place] 3 26mm [id number] - [id number] Valves PA[employer] [id number] / Implanted: Qty: 1 on 05/19/2018 by Cristobal Moreno MD [id number] / Procedures Procedure Name Priority Date/Time Associated [...] 394 ms QTC Calculation(Bazett) 454 ms P [place] 23 degrees R [place] 29 degrees T [place] 194 degrees Sinus rhythm with marked sinus [...] 388 ms QTC Calculation(Bazett) 450 ms P [place] 52 degrees R [place] 28 degrees T [place] 136 degrees Normal sinus rhythm with sinus [...] 376 ms QTC Calculation(Bazett) 444 ms P [place] 56 degrees R [place] 23 degrees T [place] 138 degrees Sinus rhythm with Premature atrial [...] 380 ms QTC Calculation(Bazett) 452 ms R [place] 188 degrees T [place] 33 degrees Normal sinus rhythm with sinus [...] TAVR (CV ANES) DEVANTE Special Needs SCOT [phone]/SHAWN after 04/26/2018 Results RHYTHM STRIP - SCAN (06/01/2018 8:10 AM CDT) Narrative Performed At POC-Glucose meter (05/30/2018 8:21 AM CDT)Only the most recent of32 resultswithin the time period is included. POC-Glucose Meter 112 (H)Comment: TESTED AT 70 - 110 mg/dL [facility] [address] [place] [address] Specimen Blood Performing Organization Address [facility] [place] [place] [address] [phone] [place] Prothrombin time/INR (05/30/2018 4:31 AM CDT)Only the most recent of7 resultswithin the time period is included. Protime 22.3 (H) 11.7 - 14.7 seconds [facility] INR 2.0 <=5.9 [facility] Specimen Blood Narrative Performed At [facility] RECOMMENDED COUMADIN/WARFARIN INR THERAPY RANGES STANDARD DOSE: 2.0 - 3.0 Includes: PROPHYLAXIS for venous thrombosis, systemic embolization; TREATMENT for venous thrombosis and/or pulmonary embolus. HIGH RISK: Target INR is 2.5-3.5 for patients with mechanical heart valves. Performing Organization Address [facility] Phone Number [address] [address] [phone] [place] CBC (Hemogram only) (05/30/2018 4:31 AM CDT)Only the most recent of8 resultswithin the time period is included. WBC 10.0 3.5 - 10.5 K/L [facility] RBC 3.44 (L) 4.63 - 6.08 M/L [facility] Hemoglobin 9.6 (L) 13.7 - 17.5 GM/DL [facility] Hematocrit 30.8 (L) 40.1 - 51.0 % [facility] MCV 89.5 79.0 - 92.2 fL [facility] MCH 27.9 25.7 - 32.2 pg [facility] MCHC 31.2 (L) 32.3 - 36.5 GM/DL [facility] RDW 16.1 (H) 11.6 - 14.4 % [facility] Platelets 169 150 - 450 K/CU MM [facility] MPV 11.5 9.4 - 12.4 fL [facility] nRBC 0 0 - 0 /100 WBC [facility] Specimen Blood Performing Organization Address City/State/Zipcode Phone Number [facility] [address] [place] [address] CENTER Basic Metabolic Panel (05/30/2018 4:31 AM CDT)Only the most recent of11 resultswithin the time period is included. Sodium 136 136 - 145 meq/L [facility] Potassium 3.7 3.5 - 5.1 meq/L [facility] Chloride 101 98 - 107 meq/L [facility] CO2 26 22 - 29 meq/L [facility] BUN 28 (H) 7 - 21 mg/dL [facility] Creatinine 1.31 (H) 0.57 - 1.25 mg/dL [facility] Glucose 74 70 - 105 mg/dL [facility] Calcium 8.9 8.4 - 10.2 mg/dL [facility] EGFR 52Comment: ESTIMATED GFR IS mL/min/1.73 sq m [facility] NOT ACCURATE [facility] CLEARANCE IN PREDICTING GLOMERULAR FILTRATION RATE. ESTIMATED GFR IS NOT APPLICABLE FOR DIALYSIS PATIENTS. Specimen Blood Performing Organization Address City/State/Zipcode Phone Number [facility] [address] [place] [address] CENTER Magnesium (05/28/2018 5:53 AM CDT)Only the most recent of9 resultswithin the time period is included. Magnesium 2.3 1.6 - 2.6 mg/dL [facility] Specimen Blood Performing Organization Address City/State/Zipcode Phone Number [facility] [address] [place] [address] CENTER Transfuse Leuko-Red RBC (05/26/2018 1:11 PM CDT)Only the most recent of2 resultswithin the time period is included.CBC with platelet count + automated diff (05/26/2018 6:27 AM CDT)Only the most recent of2 resultswithin the time period is included. WBC 12.2 (H) 3.5 - 10.5 K/L [facility] RBC 3.70 (L) 4.63 - 6.08 M/L [facility] Hemoglobin 10.6 (L) 13.7 - 17.5 GM/DL [facility] Hematocrit 33.2 (L) 40.1 - 51.0 % [facility] MCV 89.7 79.0 - 92.2 fL [facility] MCH 28.6 25.7 - 32.2 pg [facility] MCHC 31.9 (L) 32.3 - 36.5 GM/DL [facility] RDW 15.9 (H) 11.6 - 14.4 % [facility] Platelets 137 (L) 150 - 450 K/CU MM [facility] MPV 11.1 9.4 - 12.4 fL [facility] nRBC 0 0 - 0 /100 WBC [facility] % Neutros 54 % [facility] % Lymphs 33 % [facility] % Monos 8 % [facility] % Eos 3 % [facility] % Baso 0 % [facility] # Neutros 6.59 (H) 1.78 - 5.38 K/L [facility] # Lymphs 3.96 (H) 1.32 - 3.57 K/L [facility] # Monos 1.00 (H) 0.30 - 0.82 K/L [facility] # Eos 0.30 0.04 - 0.54 K/L [facility] # Baso 0.05 0.01 - 0.08 K/L [facility] Immature Granulocytes-Relative 2 (H) 0 - 1 % [facility] Specimen Blood Performing Organization Address City/State/Zipcode Phone Number [facility] [address] [place] [address] brain without IV contrast (05/25/2018 7:04 PM CDT)Only the most recent of2 resultswithin the time period is included. Specimen Narrative Performed At FINAL REPORT [facility] CT head without contrast 05/25/2018 7:14 [...] MD Report Verified Date/Time:05/25/2018 19:17:21 Reading Location: [facility] Radiology Reading Room Procedure Note Interface, External [...] Report Verified Date/Time: 05/25/2018 19:17:21 Reading Location: [facility] Radiology Reading Room Performing Organization Address City/State/Zipcode Phone Number [facility] TRANSFUSION SERVICE REPORT - SCAN (05/25/2018 6:00 PM CDT)Only the most recent of3 resultswithin the time period is included. Narrative Performed At Prepare Leuko-Red RBC (05/24/2018 11:54 PM CDT) CROSSMATCH COMPATIBLE [place]AF[place] Unit ABO O Pos [facility] TX UNIT NUMBER [id number] [place] Status TRANSFUSED [facility] [place] Blood Bank Product RED BLOOD CELLS [place] PRODUCT CODE [id number] [place] Specimen Other Performing Organization Address City/[facility] Phone Number [place] [place] Type and screen, automated (05/23/2018 11:30 AM CDT) ABO/RH AUTOMATED (BEAKER) O POSITIVE [facility] Ab Scrn NEGATIVE [facility] Specimen Blood Performing Organization Address [facility] Phone Number [address] [address] aPTT (05/23/2018 6:15 AM CDT)Only the most recent of6 resultswithin the time period is included. PTT 94.3 (H) 22.5 - 36.0 seconds [facility] Specimen Blood Performing Organization Address [facility] Phone Number [address] [address] [phone] CENTER Iron, TIBC, % sat. (without ferritin) (05/23/2018 5:25 AM CDT) Iron 63 40 - 160 ug/dL [facility] TIBC 224 (L) 250 - 450 ug/dL [facility] Iron % Saturation 28 20 - 55 % [facility] Specimen Blood Performing Organization Address City/[facility] Phone Number [address] [address] CENTER Ferritin (05/23/2018 5:25 AM CDT) Ferritin 435 (H) 5 - 275 ng/mL [facility] Specimen Blood Performing Organization Address [facility] Phone Number [address] [address] [phone] CENTER ECG 12 lead (05/22/2018 1:56 PM CDT)Only the most recent of4 resultswithin the time period is included. Specimen Narrative Performed At Ventricular Rate 80 BPM GE MUSE Atrial Rate 80 BPM P-R Interval 164 ms QRS Duration 100 ms Q-T Interval 394 ms QTC Calculation(Bazett) 454 ms P [place] 23 degrees R [place] 29 degrees T [place] 194 degrees Sinus rhythm with marked sinus [...] 394 ms QTC Calculation(Bazett) 454 ms P [place] 23 degrees R [place] 29 degrees T [place] 194 degrees Sinus rhythm with marked sinus arrhythmia ST & T wave abnormality, consider inferolateral ischemia Abnormal ECG When compared with ECG of 20-MAY-2018 06:03, ST no longer depressed in Lateral leads T wave inversion now evident in Inferior leads T wave inversion now evident in Anterior leads Confirmed by MD TERESA, SHANE ([id number]) on 05/22/2018 2:20:53 PM Performing Organization Address City/State/[facility] Phone Number GE MUSE PT/aPTT (05/22/2018 2:19 AM CDT)Only the most recent of3 resultswithin the time period is included. Protime 15.0 (H) 11.7 - 14.7 seconds [facility] INR 1.2 <=5.9 [facility] PTT 179.7 (HH) 22.5 - 36.0 seconds [facility] Specimen Blood Narrative Performed At [facility] RECOMMENDED COUMADIN/WARFARIN INR THERAPY RANGES STANDARD DOSE: 2.0 - 3.0 Includes: PROPHYLAXIS for venous thrombosis, systemic embolization; TREATMENT for venous thrombosis and/or pulmonary embolus. HIGH RISK: Target INR is 2.5-3.5 for patients with mechanical heart valves. Performing Organization Address City/[facility]/Zipcode Phone Number [address] [address] CENTER Calcium, Ionized (05/22/2018 2:19 AM CDT)Only the most recent of2 resultswithin the time period is included. Calcium, Ion 1.15 1.12 - 1.27 mmol/L [facility] pH, Blood 7.40 [facility] Specimen Blood Performing Organization Address [facility] Phone Number [address] [address] [phone] CENTER Phosphorus (05/22/2018 2:19 AM CDT)Only the most recent of3 resultswithin the time period is included. Phosphorus 3.6 2.3 - 4.7 mg/dL [facility] Specimen Blood Performing Organization Address City/[facility] Phone Number [address] [address] CENTER Vancomycin level, random (05/22/2018 2:19 AM CDT) Vancomycin Rm 24.4 ug/mL [facility] Specimen Blood Narrative Performed At [facility] Reference Range: No Normals Performing Organization Address [facility] Phone Number [address] [address] CENTER MR brain without IV contrast (05/21/2018 11:53 AM CDT) Specimen Narrative Performed At FINAL REPORT [facility] MRI Brain without contrast Clinical History: Stroke [...] MD Report Verified Date/Time:05/21/2018 11:58:08 Reading Location: [address] Neuro Reading Room Procedure Note Interface, [...] Report Verified Date/Time: 05/21/2018 11:58:08 Reading Location: [address] Neuro Reading Room Performing Organization Address City/State/Zipcode Phone Number RIS MRA neck without IV contrast (05/21/2018 11:53 AM CDT) Specimen Narrative Performed At FINAL REPORT [facility] MRA Head and Neck CLINICAL HISTORY: Stroke TECHNIQUE: MRA of the head utilizing 3-D buqi-gy-exwzsj technique, with 3-D reconstructions. MRA of the neck utilizing 2-D and 3-D nlix-kw-jkmdib technique, with 3-D reconstructions. COMPARISON: None FINDINGS: There is no evidence for a nenana of Gonzalez proximal branch vessel occlusion. There [...] vertebral arteries. IMPRESSION: No evidence for a nenana of Gonzalez proximal branch vessel occlusion. No hemodynamically significant stenosis in the internal carotid arteries. 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 Signed: Jaycob Alvarado MD Report Verified Date/Time:05/21/2018 12:04:26 Reading Location: [address] Neuro Reading Room Procedure Note Interface, External Ris In - 05/21/2018 12:06 PM CDT FINAL REPORT MRA Head and Neck CLINICAL HISTORY: Stroke TECHNIQUE: MRA of the head utilizing 3-D zwlf-ql-waqltm technique, with 3-D reconstructions. MRA of the neck utilizing 2-D and 3-D xrvf-xw-mpuwkb technique, with 3-D reconstructions. COMPARISON: None FINDINGS: There is no evidence for a nenana of Gonzalez proximal branch vessel occlusion. There [...] vertebral arteries. IMPRESSION: No evidence for a nenana of Gonzalez proximal branch vessel occlusion. No hemodynamically significant stenosis in the internal carotid arteries. 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 Signed: Jaycob Alvarado MD Report Verified Date/Time: 05/21/2018 12:04:26 Reading Location: [address] Neuro Reading Room Performing Organization Address City/State/Zipcode Phone Number [facility] MRA head without IV contrast (05/21/2018 11:53 AM CDT) Specimen Narrative Performed At FINAL REPORT [facility] MRA Head and Neck CLINICAL HISTORY: Stroke TECHNIQUE: MRA of the head utilizing 3-D mlor-oj-wnndhq technique, with 3-D reconstructions. MRA of the neck utilizing 2-D and 3-D cwie-ct-clgkrz technique, with 3-D reconstructions. COMPARISON: None FINDINGS: There is no evidence for a nenana of Gonzalez proximal branch vessel occlusion. There [...] vertebral arteries. IMPRESSION: No evidence for a nenana of Gonzalez proximal branch vessel occlusion. No hemodynamically significant stenosis in the internal carotid arteries. 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 Signed: Jaycob Alvarado MD Report Verified Date/Time:05/21/2018 12:04:26 Reading Location: [address] Neuro Reading Room Procedure Note Interface, External Ris In - 05/21/2018 12:06 PM CDT FINAL REPORT MRA Head and Neck CLINICAL HISTORY: Stroke TECHNIQUE: MRA of the head utilizing 3-D vwhv-kl-hmktqy technique, with 3-D reconstructions. MRA of the neck utilizing 2-D and 3-D fyuz-ei-yrbswh technique, with 3-D reconstructions. COMPARISON: None FINDINGS: There is no evidence for a nenana of Gonzalez proximal branch vessel occlusion. There [...] vertebral arteries. IMPRESSION: No evidence for a nenana of Gonzalez proximal branch vessel occlusion. No hemodynamically significant stenosis in the internal carotid arteries. 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 Signed: aJycob Alvarado MD Report Verified Date/Time: 05/21/2018 12:04:26 Reading Location: [facility] C013V Neuro Reading Room Performing Organization Address City/State/Zipcode Phone Number [facility] XR chest 1 view portable / bedside (05/21/2018 7:27 AM CDT)Only the most recent of2 resultswithin the time period is included. Specimen Narrative Performed At FINAL REPORT [facility] Portable chest CLINICAL HISTORY: Hypoxemia. COMPARISON STUDY: May 19, 2018. FINDINGS: The cardiac silhouette is unremarkable. The patient is status post sternotomy and valve replacement. There are increased interstitial markings with atelectatic changes in the lung bases and costophrenic angle blunting. No pneumothorax is noted. Degenerative changes are seen. IMPRESSION: No significant change. Signed: Addy Zapata MD Report Verified Date/Time:05/21/2018 10:54:40 Reading Location: [facility] C013X Ortho Consult Reading Room Procedure Note [...] Report Verified Date/Time: 05/21/2018 10:54:40 Reading Location: [facility] B1 C013X Ortho Consult Reading Room Performing Organization Address City/State/Zipcode Phone Number RIS TSH/Free T4 If Indicated (05/21/2018 2:59 AM CDT) TSH 0.77 0.35 - 4.94 uIU/mL [facility] Specimen Blood Performing Organization Address City/[facility]/Zipcode Phone Number [address] [address] [phone] CENTER Hemoglobin A1c (05/21/2018 2:59 AM CDT) Hemoglobin A1C 8.1 (H) 4.3 - 6.1 % [facility] Specimen Blood Performing Organization Address City/[facility]/Zipcode Phone Number [address] [address] CENTER Vitamin B12 (05/21/2018 2:59 AM CDT) Vitamin B12 692 213 - 816 pg/mL [facility] Specimen Blood Performing Organization Address City/[facility]/Zipcode Phone Number [address] [address] [phone] CENTER Lipid panel (05/21/2018 2:59 AM CDT) Triglycerides 348 mg/dL [facility] Cholesterol 208 mg/dL [facility] HDL 26 mg/dL [facility] LDL Calculated 112 mg/dL [facility] Specimen Blood Narrative Performed At [facility] Triglyceride Reference Range: Low Risk <150 [id number] High Risk 200-499 Very High Risk>=500 Cholesterol Reference Range: Low Risk <200 [id number] High Risk>240 HDL Cholesterol Reference Range: Low Risk >=60 High Risk <40 LDL Cholesterol Reference Range: Optimal<100 Near Gzbophf015-480 [id number] [id number] Very High >=190 Performing Organization Address City/State/Zipcode Phone Number [facility] [address] [place] [address] [phone] CENTER ECHOCARDIOGRAM REPORT - SCAN (05/20/2018 6:50 PM CDT) Narrative Performed At CARDIAC CATH REPORT - SCAN (05/20/2018 3:41 PM CDT) Narrative Performed At EEG AWAKE AND DROWSY (05/20/2018 2:38 PM CDT) Specimen Narrative Performed At Date(s) of EE05/20/2018 GE RIS DATE OF REPORT: 05/20/2018 ACC: [id number] EEG Number: [id number] Test Location: Inpatient ICU Start time: 14:17 Stop time: 14:38 ICD-10: R56.9 CPT Code: 05259 HISTORY: 87 y.o. RHM w/ severe who [...] PGY5 Linette Choe MD Attending Neurophysiologist [facility][note 3] Procedure Note Interface, External Ris In - 05/20/2018 3:54 PM CDT Date(s) of EE05/20/2018 DATE OF REPORT: 05/20/2018 ACC: [id number] EEG Number: [id number] Test Location: Inpatient ICU Start time: 14:17 Stop time: 14:38 ICD-10: R56.9 CPT Code: 43003 HISTORY: 87 y.o. RHM w/ severe who [...] Fellow, PGY5 Linette Choe MD Attending Neurophysiologist [facility] [place] Performing Organization Address City/[facility]/Zipcode Phone Number GE RIS XR abdomen / KUB 1 view (05/20/2018 11:22 AM CDT) Specimen Narrative Performed At FINAL REPORT [facility] Abdomen one view INDICATION: Nasogastric tube insertion COMPARISON: None available IMPRESSION: NG tube extends to the gastric body. The imaged bowel gas pattern is nonspecific. There are degenerative spine changes and incidental vascular calcifications. The imaged chest is similar to 05/19/2018. Signed: Virgil Kraft MD Report Verified Date/Time:05/20/2018 11:33:02 Reading Location: [facility] Radiology Reading Room Procedure Note Interface, External [...] Report Verified Date/Time: 05/20/2018 11:33:02 Reading Location: [facility] Radiology Reading Room Performing Organization Address [facility] Phone Number GE RIS Troponin I (05/20/2018 11:05 AM CDT)Only the most recent of2 resultswithin the time period is included. Troponin I 1.13 (HH) 0.00 - 0.03 ng/mL [facility] Specimen Blood Narrative Performed At [facility] Troponin I (TnI) levels must be [...] disease, and persistent tachyarrhythmia. Performing Organization Address City/[facility] Phone Number [address] [address] [phone] [place] Lactic acid, venous, whole blood (05/20/2018 11:05 AM CDT) Lactate, Venous 2.1 0.5 - 2.2 mmol/L [facility] Specimen Blood Narrative Performed At [facility] Effective 04/02/2016: Units/Reference Range Change New: 0.5-2.2 mmol/LPrevious: 5-20 mg/dL Performing Organization Address [facility] Phone Number [address] [address] [place] Blood gas, venous (05/20/2018 11:05 AM CDT) pH, Phil 7.40 7.32 - 7.42 [facility] pCO2, Phil 45 41 - 51 mmHg [facility] pO2, Phil 26 25 - 40 mmHg [facility] O2 Sat, Phil 46.3 40.0 - 70.0 % [facility] HCO3, Phil 27 21 - 29 mmol/L [facility] Base Excess, Phil 1.8 -2.0 - 3.0 mmol/L [facility] Patient Temperature 36.9 C [facility] FIO2 36.0 % [facility] Specimen Blood Performing Organization Address City/[facility] Phone Number [facility] [address] [place] [address] [place] Creatine Kinase (CK), Total and MB (05/20/2018 11:05 AM CDT)Only the most recent of2 resultswithin the time period is included. Total CK 138 29 - 200 U/L [facility] CK-MB 4.2 0.0 - 6.6 ng/mL [facility] MB Relative Index 3.0 % [facility] Specimen Blood Narrative Performed At CK-MB Reference Range: [facility] <6.7Normal 6.7-10.0Borderline >10.0 Abnormal Performing Organization Address City/State/Zipcode Phone Number [facility] [address], [place] [address] [phone] [place] Comprehensive metabolic panel (05/20/2018 11:05 AM CDT) Protein, Total 5.7 (L) 6.0 - 8.3 gm/dL [facility] Albumin 3.4 (L) 3.5 - 5.0 g/dL [facility] Alkaline Phosphatase 42 40 - 150 U/L [facility] Total Bilirubin 0.8 0.2 - 1.2 mg/dL [facility] Sodium 139 136 - 145 meq/L [facility] Potassium 4.2 3.5 - 5.1 meq/L [facility] Chloride 100 98 - 107 meq/L [facility] CO2 23 22 - 29 meq/L [facility] BUN 38 (H) 7 - 21 mg/dL [facility] Creatinine 2.17 (H) 0.57 - 1.25 mg/dL [facility] Glucose 129 (H) 70 - 105 mg/dL [facility] Calcium 9.0 8.4 - 10.2 mg/dL [facility] AST 27 5 - 34 U/L [facility] ALT 14 6 - 55 U/L [facility] EGFR 29Comment: ESTIMATED GFR mL/min/1.[address] [facility] IS NOT ACCURATE [facility] CREATININE CLEARANCE IN PREDICTING GLOMERULAR FILTRATION RATE. ESTIMATED GFR IS NOT APPLICABLE FOR DIALYSIS PATIENTS. Specimen Blood Performing Organization Address City/State/Zipcode Phone Number [facility] [address] [place] [address] CENTER ECHOCARDIOGRAM REPORT - SCAN (05/20/2018 9:50 AM CDT) Narrative Performed At 2D Echo W/Doppler(CW/PW/Color) (05/20/2018 9:24 AM CDT) Ejection Fraction [facility] Specimen Narrative Performed At Transthoracic Echocardiography Report (TTE) [facility] Demographics Patient Name Catherine SEXTON of Study 05/20/2018 RIOS [id number] GenderMale Visit Number [id number] Room Number 8A11 Number Date of Birth1930Referring Physician Cristobal Moreno MD Age87 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/Zipcode Phone Number [facility] Urinalysis w/Microscopic (05/19/2018 11:32 PM CDT) Color, UA Yellow [facility] Clarity, UA Clear [facility] Specific [place], UA 1.017 1.001 - 1.035 [facility] pH, UA 5.0 5.0 - 8.0 [facility] Protein, UA Negative Negative [facility] Glucose, UA Negative Negative [facility] Ketones, UA Negative Negative [facility] Bilirubin, UA Negative Negative [facility] Blood, UA Small (A) Negative [facility] Nitrite, UA Negative Negative [facility] Leukocytes, UA Negative Negative [facility] Urobilinogen, UA 0.2 0.2 - 1.0 mg/dL [facility] RBC, UA 12 /HPF [facility] WBC, UA 1 /HPF [facility] Mucus Rare [facility] Amorphous Crystals Occasional [facility] Specimen Source Urine, [place] [facility] Specimen Urine Performing Organization Address City/[facility]/Zipcode Phone Number [facility] [address] [place] [address] CENTER Urine culture (05/19/2018 11:31 PM CDT) Result No growth [facility] Specimen Urine Performing Organization Address [facility] Phone Number [address] [phone] [place] Blood culture (05/19/2018 11:23 PM CDT)Only the most recent of2 resultswithin the time period is included. Result No growth in 5 days [facility] Specimen Blood Performing Organization Address [facility] Phone Number [address] [phone] [place] POC-Lactic Acid, Arterial (05/19/2018 9:17 PM CDT) POC-Lactic Acid, 1.5 (H)Comment: 0.4 - 1.3 mmol/L [facility] Arterial TESTED AT [address] [address] Specimen Blood Performing Organization Address [facility] Phone Number [address] [address] [place] POCT-HEMATOCRIT (05/19/2018 9:07 PM CDT) POC-Hematocrit 32 (L)Comment: TESTED AT 40 - 50 % [address] [address] Specimen Blood Performing Organization Address [facility] Phone Number [address] [phone] [place] POCT-HEMOGLOBIN (05/19/2018 9:07 PM CDT) POC-Hemoglobin 10.9 (L)Comment: TESTED AT 13.0 - 16.8 g/dL [address] [address]SDDQ[place] AT [address] [address] Specimen Blood Performing Organization Address [facility] Phone Number [address] [address] [place] POCT-GLUCOSE (05/19/2018 9:07 PM CDT) POC-Glucose 152 (H)Comment: TESTED AT 70 - 110 mg/dL [address] [place] [address] Specimen Blood Performing Organization Address [facility] Hospital[facility] Phone Number [address] [address] [place] POC-Sodium (05/19/2018 9:07 PM CDT) POC-Sodium 137Comment: TESTED AT [facility] 135 - 148 meq/L [address] [address] Specimen Blood Performing Organization Address [facility] Phone Number [address] [address] [place] POC-Potassium (05/19/2018 9:07 PM CDT) POC-Potassium 3.6Comment: TESTED AT [facility] 3.6 - 5.5 meq/L [address] [address] Specimen Blood Performing Organization Address [facility] Phone Number [address] [address] [place] POC-Calcium ionized (05/19/2018 9:07 PM CDT) POC-Calcium Ionized 1.19Comment: TESTED AT 1.12 - 1.27 mmol/L [address] [address] Specimen Blood Performing Organization Address [facility] Phone Number [address] [address] [place] POC-Blood gases, arterial (05/19/2018 9:07 PM CDT) Temp. Celsius-POC 37.1 [facility] FIO2-POC 29Comment: TESTED AT [address] [address] pH, Arterial-POC 7.468 (H) 7.350 - 7.450 [facility] PCO2, Arterial-POC 34.4 (L) 35.0 - 45.0 mm Hg [facility] PO2, Arterial-POC 63.0 (L) 80.0 - 90.0 mm Hg [facility] SO2, Arterial-POC 93.0 (L) 96.0 - 97.0 % [facility] HCO3, Arterilal-POC 24.9 21.0 - 29.0 meq/L [facility] BE, Arterial-POC 1.0 -2.0 - 3.0 meq/L [facility] Specimen Blood Performing Organization Address City/State/Zipcode Phone Number [facility] [address] [place] [address] brain/stroke test design (05/19/2018 8:42 PM CDT) Specimen Narrative Performed At FINAL REPORT MenInvest CT head without contrast 05/19/2018 8:43 PM [...] MD Report Verified Date/Time:05/19/2018 20:46:09 Reading Location: [facility] Reading Room Procedure Note Interface, External [...] Report Verified Date/Time: 05/19/2018 20:46:09 Reading Location: [facility] Radiology Reading Room Performing Organization Address City/State/[facility] Phone Number [facility] Prepare RBC (05/19/2018 10:47 AM CDT) CROSSMATCH COMPATIBLE SAFETRACE TX Unit ABO O Pos SAFETRACE TX UNIT NUMBER [id number] SAFETRACE TX Status RETURNED FROM ISSUE SAFETRACE TX Blood Bank Product RED BLOOD CELLS SAFETRACE TX PRODUCT CODE [id number] SAFETRACE TX CROSSMATCH COMPATIBLE SAFETRACE TX Unit ABO O Pos SAFETRACE TX UNIT NUMBER [id number] SAFETRACE TX Status RETURNED FROM ISSUE SAFETRACE TX Blood Bank Product RED BLOOD CELLS SAFETRACE TX PRODUCT CODE [id number] SAFETRACE TX CROSSMATCH COMPATIBLE SAFETRACE TX Unit ABO O Pos SAFETRACE TX UNIT NUMBER [id number] SAFETRACE TX Status RETURNED FROM ISSUE SAFETRACE TX Blood Bank Product RED BLOOD CELLS SAFETRACE TX PRODUCT CODE [id number] SAFETRACE TX CROSSMATCH COMPATIBLE SAFETRACE TX Unit ABO O Pos SAFETRACE TX UNIT NUMBER [id number] SAFETRACE TX Status RETURNED FROM ISSUE SAFETRACE TX Blood Bank Product RED BLOOD CELLS SAFETRACE TX PRODUCT CODE [id number] SAFETRACE TX Performing Organization Address [facility] Hospitalcode Phone Number SAFETRACE TX POC ACTIVATED CLOTTING TIME (05/19/2018 8:59 AM CDT) Activated Clotting Time 329Comment: TESTED AT [address] [address] Specimen Blood Performing Organization Address [facility] Phone Number [address] [address] CENTER 2D Echo W/Doppler(CW/PW/Color) (05/19/2018 7:51 AM CDT) Ejection Fraction [facility]CHO [facility] Specimen Narrative Performed At Transthoracic Echocardiography Report (TTE) [facility]CHO [facility] Demographics Patient Name Catherine SEXTON of Study 05/19/2018 RIOS [id number] GenderMale Visit Number [id number] Room Number 8A11 Number Date of Birth1930Referring Physician Cristobal Moreno MD 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 Performing Organization Address City/State/Zipcode Phone Number [facility] CPACS after 04/26/2018 Insurance Payer Benefit Plan / Group Subscriber ID Type Phone Address MEDICARE MEDICARE A B xxxxxxxxxx Medicare AETNA - MGD CARE AETNA INDEMNITY NON CONTR xxxxxxxxxx Comm [address] ([place]) [address] [place] [address] Advance Directives For more information, please contact:[address] [phone] Code Status Date Activated Date Inactivated Comments Full Code 05/19/2018 5:27 AM 05/30/2018 5:08 PM This code status was determined by: Patient
--- OUTSIDE RECORDS SUMMARY | 2019-04-27 10:51 | XMS REPORT ---
:1930 [facility] Address [address] [place] [address] Care Team Providers Name Role Phone TONIE [...] (BEAKER) (test 112 mg/dL 70-110 TESTED AT [address] xyun=4553) [facility] [address] POCT-GLUCOSE [id number] 08:17:00 Test Item Value Reference Range Comments POC-GLUCOSE METER (BEAKER) 98 mg/dL 70-110 TESTED AT [address] (test ajni=6151) [place] [id number] BASIC METABOLIC [id number] 06:16:00 Test Item Value Reference Range Comments SODIUM (BEAKER) (test 136 meq/L 136-145 xvuq=743) POTASSIUM (BEAKER) (test 3.7 meq/L 3.5-5.1 qseu=374) CHLORIDE (BEAKER) (test 101 meq/L 98-107 xpdf=365) CO2 (BEAKER) (test 26 meq/L 22-29 bdlk=407) BLOOD UREA NITROGEN 28 mg/dL 7-21 (BEAKER) (test cmji=022) CREATININE (BEAKER) (test 1.31 mg/dL 0.57-1.25 juuf=830) GLUCOSE RANDOM (BEAKER) 74 mg/dL 70-105 (test lofg=048) CALCIUM (BEAKER) (test 8.9 mg/dL 8.4-10.2 ssgt=548) EGFR (BEAKER) (test 52 mL/min/1.73 sq m ESTIMATED GFR IS NOT ware=6243) ACCURATE CREATININE CLEARANCE IN PREDICTING GLOMERULAR FILTRATION RATE. ESTIMATED GFR IS NOT APPLICABLE FOR DIALYSIS PATIENTS. PROTHROMBIN [id number] 05:42:00 Test Item Value Reference Range Comments PROTIME (BEAKER) (test mjir=404) 22.3 seconds 11.7-14.7 INR (BEAKER) (test zvfn=013) 2.0 <=5.9 RECOMMENDED COUMADIN/WARFARIN INR THERAPY RANGESSTANDARD DOSE: 2.0 - 3.0 Includes: PROPHYLAXIS forvenous thrombosis, systemic embolization; TREATMENT for venous thrombosis and/or pulmonary embolus.HIGH RISK: Target INR is 2.5-3.5 for patients with mechanical heart valves.CBC (HEMOGRAM ONLY)2018-05-30 05:34:00 Test Item Value Reference Range Comments WHITE BLOOD CELL COUNT (BEAKER) (test izkx=951) 10.0 K/ L 3.5-10.5 RED BLOOD CELL COUNT (BEAKER) (test oxyl=537) 3.44 M/ L 4.63-6.08 HEMOGLOBIN (BEAKER) (test ywsx=076) 9.6 GM/DL 13.7-17.5 HEMATOCRIT (BEAKER) (test zcfg=257) 30.8 % 40.1-51.0 MEAN CORPUSCULAR VOLUME (BEAKER) (test vhpu=107) 89.5 fL 79.0-92.2 MEAN CORPUSCULAR HEMOGLOBIN (BEAKER) (test 27.9 pg 25.7-32.2 agnu=558) MEAN CORPUSCULAR HEMOGLOBIN CONC (BEAKER) (test 31.2 GM/DL 32.3-36.5 kggu=217) RED CELL DISTRIBUTION WIDTH (BEAKER) (test 16.1 % 11.6-14.4 etzc=865) PLATELET COUNT (BEAKER) (test sdxx=539) 169 K/CU MM 150-450 MEAN PLATELET VOLUME (BEAKER) (test fodd=918) 11.5 fL 9.4-12.4 NUCLEATED RED BLOOD CELLS (BEAKER) (test 0 /100 WBC 0-0 ufyr=148) POCT-GLUCOSE [id number] 21:35:00 Test Item Value Reference Range Comments POC-GLUCOSE METER (BEAKER) 203 mg/dL 70-110 TESTED AT [address] (test sdyx=6632) [place] [id number] POCT-GLUCOSE [id number] 16:47:00 Test Item Value Reference Range Comments POC-GLUCOSE METER (BEAKER) 177 mg/dL 70-110 TESTED AT [address] (test aulz=4636) [facility] [address] POCT-GLUCOSE [id number] 12:17:00 Test Item Value Reference Range Comments POC-GLUCOSE METER (BEAKER) 139 mg/dL 70-110 TESTED AT [address] (test ovkw=0357) [place] [id number] POCT-GLUCOSE [id number] 08:38:00 Test Item Value Reference Range Comments POC-GLUCOSE METER (BEAKER) 83 mg/dL 70-110 TESTED AT [address] (test oruh=2275) [place] [id number] PROTHROMBIN [id number] 06:39:00 Test Item Value Reference Range Comments PROTIME (BEAKER) (test ahzg=003) 23.6 seconds 11.7-14.7 INR (BEAKER) (test bgcw=976) 2.1 <=5.9 RECOMMENDED COUMADIN/WARFARIN INR THERAPY RANGESSTANDARD DOSE: 2.0 - 3.0 Includes: PROPHYLAXIS forvenous thrombosis, systemic embolization; TREATMENT for venous thrombosis and/or pulmonary embolus.HIGH RISK: Target INR is 2.5-3.5 for patients with mechanical heart valves.POCT-GLUCOSE [id number] 21:31:00 Test Item Value Reference Range Comments POC-GLUCOSE METER (BEAKER) 187 mg/dL 70-110 TESTED AT [address] (test tirm=5595) [place] [address] POCT-GLUCOSE [id number] 11:55:00 Test Item Value Reference Range Comments POC-GLUCOSE METER (BEAKER) 250 mg/dL 70-110 TESTED AT [address] (test sgjd=1816) [place] [address] POCT-GLUCOSE [id number] 07:55:00 Test Item Value Reference Range Comments POC-GLUCOSE METER (BEAKER) 156 mg/dL 70-110 TESTED AT [address] (test xqet=0615) [place] [address] [id number] 07:33:00 Test Item Value Reference Range Comments MAGNESIUM (BEAKER) (test ruxd=711) 2.3 mg/dL 1.6-2.6 PROTHROMBIN [id number] 06:33:00 Test Item Value Reference Range Comments PROTIME (BEAKER) (test wxax=152) 20.3 seconds 11.7-14.7 INR (BEAKER) (test fksk=177) 1.7 <=5.9 RECOMMENDED COUMADIN/WARFARIN INR THERAPY RANGESSTANDARD DOSE: 2.0 - 3.0 Includes: PROPHYLAXIS forvenous thrombosis, systemic embolization; TREATMENT for venous thrombosis and/or pulmonary embolus.HIGH RISK: Target INR is 2.5-3.5 for patients with mechanical heart valves.BASIC METABOLIC [id number] 21:18: 00 Test Item Value Reference Range Comments SODIUM (BEAKER) (test 137 meq/L 136-145 tmhq=903) POTASSIUM (BEAKER) (test 4.1 meq/L 3.5-5.1 uuye=618) CHLORIDE (BEAKER) (test 102 meq/L 98-107 oojp=564) CO2 (BEAKER) (test 26 meq/L 22-29 vkpb=415) BLOOD UREA NITROGEN 32 mg/dL 7-21 (BEAKER) (test eblu=417) CREATININE (BEAKER) (test 1.30 mg/dL 0.57-1.25 pcys=686) GLUCOSE RANDOM (BEAKER) 95 mg/dL 70-105 (test hyxd=651) CALCIUM (BEAKER) (test 9.1 mg/dL 8.4-10.2 ylgd=461) EGFR (BEAKER) (test 52 mL/min/1.73 sq m ESTIMATED GFR IS NOT utoy=1488) ACCURATE CREATININE CLEARANCE IN PREDICTING GLOMERULAR FILTRATION RATE. ESTIMATED GFR IS NOT APPLICABLE FOR DIALYSIS PATIENTS. POCT-GLUCOSE [id number] 21:16:00 Test Item Value Reference Range Comments POC-GLUCOSE METER (BEAKER) 94 mg/dL 70-[address] [facility] [address] [facility] (test jkat=1419) [facility] [address] CBC (HEMOGRAM ONLY)2018-05-27 21:04:00 Test Item Value Reference Range Comments WHITE BLOOD CELL COUNT (BEAKER) (test kqby=763) 11.1 K/ L 3.5-10.5 RED BLOOD CELL COUNT (BEAKER) (test veal=365) 3.63 M/ L 4.63-6.08 HEMOGLOBIN (BEAKER) (test utwx=188) 10.1 GM/DL 13.7-17.5 HEMATOCRIT (BEAKER) (test pidt=069) 32.6 % 40.1-51.0 MEAN CORPUSCULAR VOLUME (BEAKER) (test goyd=872) 89.8 fL 79.0-92.2 MEAN CORPUSCULAR HEMOGLOBIN (BEAKER) (test 27.8 pg 25.7-32.2 lros=367) MEAN CORPUSCULAR HEMOGLOBIN CONC (BEAKER) (test 31.0 GM/DL 32.3-36.5 tbrl=563) RED CELL DISTRIBUTION WIDTH (BEAKER) (test 15.9 % 11.6-14.4 tsjj=735) PLATELET COUNT (BEAKER) (test grmh=678) 171 K/CU MM 150-450 MEAN PLATELET VOLUME (BEAKER) (test vxwg=956) 11.4 fL 9.4-12.4 NUCLEATED RED BLOOD CELLS (BEAKER) (test 0 /100 WBC 0-0 mehv=995) POCT-GLUCOSE [id number] 17:03:00 Test Item Value Reference Range Comments POC-GLUCOSE METER (BEAKER) 226 mg/dL 70-110 TESTED AT [address] (test rzmp=9136) [place] [id number] POCT-GLUCOSE [id number] 11:53:00 Test Item Value Reference Range Comments POC-GLUCOSE METER (BEAKER) 154 mg/dL 70-110 TESTED AT [address] (test yqjz=7351) [place] [address] POCT-GLUCOSE [id number] 07:58:00 Test Item Value Reference Range Comments POC-GLUCOSE METER (BEAKER) 78 mg/dL 70-110 TESTED AT [address] (test kail=5983) [place] [address] [id number] 06:27:00 Test Item Value Reference Range Comments MAGNESIUM (BEAKER) (test vaet=745) 2.1 mg/dL 1.6-2.6 PROTHROMBIN [id number] 05:53:00 Test Item Value Reference Range Comments PROTIME (BEAKER) (test bihl=164) 19.1 seconds 11.7-14.7 INR (BEAKER) (test itzs=431) 1.6 <=5.9 RECOMMENDED COUMADIN/WARFARIN INR THERAPY RANGESSTANDARD DOSE: 2.0 - 3.0 Includes: PROPHYLAXIS forvenous thrombosis, systemic embolization; TREATMENT for venous thrombosis and/or pulmonary embolus.HIGH RISK: Target INR is 2.5-3.5 for patients with mechanical heart valves.POCT-GLUCOSE [id number] 21:34:00 Test Item Value Reference Range Comments POC-GLUCOSE METER (BEAKER) 221 mg/dL 70-110 TESTED AT [address] (test rzrc=6259) [place] [address] POCT-GLUCOSE [id number] 18:12:00 Test Item Value Reference Range Comments POC-GLUCOSE METER (BEAKER) 173 mg/dL 70-110 TESTED AT [address] (test kjlt=3209) [place] [address] POCT-GLUCOSE [id number] 12:42:00 Test Item Value Reference Range Comments POC-GLUCOSE METER (BEAKER) 286 mg/dL 70-110 TESTED AT [address] (test frqo=0250) [place] [address] POCT-GLUCOSE [id number] 08:40:00 Test Item Value Reference Range Comments POC-GLUCOSE METER (BEAKER) 91 mg/dL 70-110 TESTED AT [address] (test qowq=7482) [place] [address] [id number] 07:52:00 Test Item Value Reference Range Comments MAGNESIUM (BEAKER) (test adba=688) 2.2 mg/dL 1.6-2.6 PROTHROMBIN [id number] 07:30:00 Test Item Value Reference Range Comments PROTIME (BEAKER) (test qvyk=695) 15.1 seconds 11.7-14.7 INR (BEAKER) (test zznp=089) 1.2 <=5.9 RECOMMENDED COUMADIN/WARFARIN INR THERAPY RANGESSTANDARD DOSE: 2.0 - 3.0 Includes: PROPHYLAXIS forvenous thrombosis, systemic embolization; TREATMENT for venous thrombosis and/or pulmonary embolus.HIGH RISK: Target INR is 2.5-3.5 for patients with mechanical heart valves.CBC W/PLT COUNT & AUTO [id number] 07:24:00 Test Item Value Reference Range Comments WHITE BLOOD CELL COUNT (BEAKER) (test ydbb=323) 12.2 K/ L 3.5-10.5 RED BLOOD CELL COUNT (BEAKER) (test komg=877) 3.70 M/ L 4.63-6.08 HEMOGLOBIN (BEAKER) (test yvfw=204) 10.6 GM/DL 13.7-17.5 HEMATOCRIT (BEAKER) (test cbgd=412) 33.2 % 40.1-51.0 MEAN CORPUSCULAR VOLUME (BEAKER) (test yxdk=733) 89.7 fL 79.0-92.2 MEAN CORPUSCULAR HEMOGLOBIN (BEAKER) (test 28.6 pg 25.7-32.2 noon=046) MEAN CORPUSCULAR HEMOGLOBIN CONC (BEAKER) (test 31.9 GM/DL 32.3-36.5 owaj=305) RED CELL DISTRIBUTION WIDTH (BEAKER) (test 15.9 % 11.6-14.4 srjv=289) PLATELET COUNT (BEAKER) (test yjqa=347) 137 K/CU MM 150-450 MEAN PLATELET VOLUME (BEAKER) (test stkd=200) 11.1 fL 9.4-12.4 NUCLEATED RED BLOOD CELLS (BEAKER) (test 0 /100 WBC 0-0 lkjd=662) NEUTROPHILS RELATIVE PERCENT (BEAKER) (test 54 % rrgd=153) LYMPHOCYTES RELATIVE PERCENT (BEAKER) (test 33 % bvgd=095) MONOCYTES RELATIVE PERCENT (BEAKER) (test 8 % wntr=842) EOSINOPHILS RELATIVE PERCENT (BEAKER) (test 3 % sjac=712) BASOPHILS RELATIVE PERCENT (BEAKER) (test 0 % clav=263) NEUTROPHILS ABSOLUTE COUNT (BEAKER) (test 6.59 K/ L 1.78-5.38 tims=852) LYMPHOCYTES ABSOLUTE COUNT (BEAKER) (test 3.96 K/ L 1.32-3.57 fezh=907) MONOCYTES ABSOLUTE COUNT (BEAKER) (test 1.00 K/ L 0.30-0.82 stjq=271) EOSINOPHILS ABSOLUTE COUNT (BEAKER) (test 0.30 K/ L 0.04-0.54 bamn=968) BASOPHILS ABSOLUTE COUNT (BEAKER) (test 0.05 K/ L 0.01-0.08 rtja=306) IMMATURE GRANULOCYTES-RELATIVE PERCENT (BEAKER) 2 % 0-1 (test tyxf=9425) POCT-GLUCOSE [id number] 22:05:00 Test Item Value Reference Range Comments POC-GLUCOSE METER (BEAKER) 122 mg/dL 70-[address] [facility] [address] (test mjxy=1945) [facility] [address] BASIC METABOLIC [id number] 21:48:00 Test Item Value Reference Range Comments SODIUM (BEAKER) (test 135 meq/L 136-145 dssu=029) POTASSIUM (BEAKER) (test 4.2 meq/L 3.5-5.1 rzkj=907) CHLORIDE (BEAKER) (test 101 meq/L 98-107 nfsk=506) CO2 (BEAKER) (test 25 meq/L 22-29 qmrm=084) BLOOD UREA NITROGEN 27 mg/dL 7-21 (BEAKER) (test dbow=754) CREATININE (BEAKER) (test 1.09 mg/dL 0.57-1.25 slty=197) GLUCOSE RANDOM (BEAKER) 139 mg/dL 70-105 (test blpn=273) CALCIUM (BEAKER) (test 9.5 mg/dL 8.4-10.2 ehkj=251) EGFR (BEAKER) (test 64 mL/min/1.73 sq m ESTIMATED GFR IS NOT jirl=3418) ACCURATE CREATININE CLEARANCE IN PREDICTING GLOMERULAR FILTRATION RATE. ESTIMATED GFR IS NOT APPLICABLE FOR DIALYSIS PATIENTS. CBC (HEMOGRAM ONLY)2018-05-25 21:37:00 Test Item Value Reference Range Comments WHITE BLOOD CELL COUNT (BEAKER) (test ujdw=674) 17.3 K/ L 3.5-10.5 RED BLOOD CELL COUNT (BEAKER) (test rxrc=943) 3.84 M/ L 4.63-6.08 HEMOGLOBIN (BEAKER) (test xfbv=363) 11.0 GM/DL 13.7-17.5 HEMATOCRIT (BEAKER) (test jbar=277) 33.5 % 40.1-51.0 MEAN CORPUSCULAR VOLUME (BEAKER) (test ntqq=702) 87.2 fL 79.0-92.2 MEAN CORPUSCULAR HEMOGLOBIN (BEAKER) (test 28.6 pg 25.7-32.2 bneu=373) MEAN CORPUSCULAR HEMOGLOBIN CONC (BEAKER) (test 32.8 GM/DL 32.3-36.5 rofe=220) RED CELL DISTRIBUTION WIDTH (BEAKER) (test 15.8 % 11.6-14.4 oawj=577) PLATELET COUNT (BEAKER) (test iixt=870) 151 K/CU MM 150-450 MEAN PLATELET VOLUME (BEAKER) (test wwpf=626) 11.6 fL 9.4-12.4 NUCLEATED RED BLOOD CELLS (BEAKER) (test 0 /100 WBC 0-0 jamq=689) CT, BRAIN, WITHOUT [id number] 19:17:00FINAL REPORT CT head without contrast 05/25/2018 [...] Reading Location: [facility] Radiology Reading Room Electronicallysigned by: IMCHEAL BOYKIN M.D. on 05/25/2018 07:17 PMPOCT- GLUCOSE [id number] 17:10:00 Test Item Value Reference Range Comments POC-GLUCOSE METER (BEAKER) 186 mg/dL 70-[address] [facility] [address] [facility] (test ynvg=7398) [facility] [address] POCT-GLUCOSE [id number] 11:53:00 Test Item Value Reference Range Comments POC-GLUCOSE METER (BEAKER) 152 mg/dL 70-[address] [facility] [address] [facility] (test emla=5802) [facility] [address] POCT-GLUCOSE [id number] 08:24:00 Test Item Value Reference Range Comments POC-GLUCOSE METER (BEAKER) 126 mg/dL 70-[address] [facility] [address] [facility] (test dcim=4747) [facility] [address] BASIC METABOLIC [id number] 06:46:00 Test Item Value Reference Range Comments SODIUM (BEAKER) (test 137 meq/L 136-145 hoze=221) POTASSIUM (BEAKER) (test 3.8 meq/L 3.5-5.1 Specimen slightly pflm=539) hemolyzed CHLORIDE (BEAKER) (test 101 meq/L 98-107 ncyf=367) CO2 (BEAKER) (test 25 meq/L 22-29 guuk=471) BLOOD UREA NITROGEN 26 mg/dL 7-21 (BEAKER) (test ydkb=299) CREATININE (BEAKER) (test 0.94 mg/dL 0.57-1.25 Specimen slightly aulu=814) hemolyzed GLUCOSE RANDOM (BEAKER) 110 mg/dL 70-105 (test oulf=663) CALCIUM (BEAKER) (test 9.2 mg/dL 8.4-10.2 prwi=596) EGFR (BEAKER) (test 76 mL/min/1.73 sq m ESTIMATED GFR IS NOT tcoq=6865) ACCURATE CREATININE CLEARANCE IN PREDICTING GLOMERULAR FILTRATION RATE. ESTIMATED GFR IS NOT APPLICABLE FOR DIALYSIS PATIENTS. BLOOD [id number] 06:00:00 Test Item Value Reference Range Comments CULTURE (BEAKER) (test ukrk=5347) No growth in 5 days BLOOD [id number] 06:00:00 Test Item Value Reference Range Comments CULTURE (BEAKER) (test nzgx=2832) No growth in 5 days [id number] 05:50:00 Test Item Value Reference Range Comments MAGNESIUM (BEAKER) (test 2.3 mg/dL 1.6-2.6 Specimen slightly hemolyzed wnwa=208) PROTHROMBIN [id number] 05:44:00 Test Item Value Reference Range Comments PROTIME (BEAKER) (test zvjy=086) 13.8 seconds 11.7-14.7 INR (BEAKER) (test jhqt=938) 1.1 <=5.9 RECOMMENDED COUMADIN/WARFARIN INR THERAPY RANGESSTANDARD DOSE: 2.0 - 3.0 Includes: PROPHYLAXIS forvenous thrombosis, systemic embolization; TREATMENT for venous thrombosis and/or pulmonary embolus.HIGH RISK: Target INR is 2.5-3.5 for patients with mechanical heart valves.POCT-GLUCOSE [id number] 22:35:00 Test Item Value Reference Range Comments POC-GLUCOSE METER (BEAKER) 216 mg/dL 70-110 TESTED AT [address] (test hfpv=7347) [facility] [address] POCT-GLUCOSE [id number] 17:10:00 Test Item Value Reference Range Comments POC-GLUCOSE METER (BEAKER) 240 mg/dL 70-110 TESTED AT [address] (test zjpc=0283) [facility] [address] POCT-GLUCOSE [id number] 12:11:00 Test Item Value Reference Range Comments POC-GLUCOSE METER (BEAKER) 172 mg/dL 70-110 TESTED AT [address] (test hdaj=9983) [facility] [address] [id number] 04:19:00 Test Item Value Reference Range Comments MAGNESIUM (BEAKER) (test hwjq=727) 2.2 mg/dL 1.6-2.6 BASIC METABOLIC [id number] 04:19:00 Test Item Value Reference Range Comments SODIUM (BEAKER) (test 140 meq/L 136-145 eymx=712) POTASSIUM (BEAKER) (test 3.6 meq/L 3.5-5.1 wgsc=976) CHLORIDE (BEAKER) (test 105 meq/L 98-107 pvrl=615) CO2 (BEAKER) (test 28 meq/L 22-29 aiks=130) BLOOD UREA NITROGEN 33 mg/dL 7-21 (BEAKER) (test jsqy=553) CREATININE (BEAKER) (test 0.96 mg/dL 0.57-1.25 kbrf=066) GLUCOSE RANDOM (BEAKER) 128 mg/dL 70-105 (test bvkt=018) CALCIUM (BEAKER) (test 9.0 mg/dL 8.4-10.2 aswi=762) EGFR (BEAKER) (test 74 mL/min/1.73 sq m ESTIMATED GFR IS NOT fbgi=2709) ACCURATE CREATININE CLEARANCE IN PREDICTING GLOMERULAR FILTRATION RATE. ESTIMATED GFR IS NOT APPLICABLE FOR DIALYSIS PATIENTS. PROTHROMBIN [id number] 03:49:00 Test Item Value Reference Range Comments PROTIME (BEAKER) (test lmrl=388) 13.8 seconds 11.7-14.7 INR (BEAKER) (test nkgq=449) 1.1 <=5.9 RECOMMENDED COUMADIN/WARFARIN INR THERAPY RANGESSTANDARD DOSE: 2.0 - 3.0 Includes: PROPHYLAXIS forvenous thrombosis, systemic embolization; TREATMENT for venous thrombosis and/or pulmonary embolus.HIGH RISK: Target INR is 2.5-3.5 for patients with mechanical heart valves.While on warfarin.CBC (HEMOGRAM ONLY) 2018-05-24 03:43:00 Test Item Value Reference Range Comments WHITE BLOOD CELL COUNT (BEAKER) (test rnhu=732) 8.8 K/ L 3.5-10.5 RED BLOOD CELL COUNT (BEAKER) (test eway=886) 3.23 M/ L 4.63-6.08 HEMOGLOBIN (BEAKER) (test brmt=236) 9.2 GM/DL 13.7-17.5 HEMATOCRIT (BEAKER) (test ndti=610) 28.5 % 40.1-51.0 MEAN CORPUSCULAR VOLUME (BEAKER) (test jxol=608) 88.2 fL 79.0-92.2 MEAN CORPUSCULAR HEMOGLOBIN (BEAKER) (test 28.5 pg 25.7-32.2 mjym=133) MEAN CORPUSCULAR HEMOGLOBIN CONC (BEAKER) (test 32.3 GM/DL 32.3-36.5 pmbm=408) RED CELL DISTRIBUTION WIDTH (BEAKER) (test 15.0 % 11.6-14.4 gzlf=730) PLATELET COUNT (BEAKER) (test bgds=421) 87 K/CU MM 150-450 MEAN PLATELET VOLUME (BEAKER) (test iqzb=295) 11.6 fL 9.4-12.4 NUCLEATED RED BLOOD CELLS (BEAKER) (test 0 /100 WBC 0-0 aoln=298) POCT-GLUCOSE [id number] 23:13:00 Test Item Value Reference Range Comments POC-GLUCOSE METER (BEAKER) 170 mg/dL 70-110 TESTED AT [address] (test todz=1099) [facility] [address] POCT-GLUCOSE [id number] 17:11:00 Test Item Value Reference Range Comments POC-GLUCOSE METER (BEAKER) 290 mg/dL 70-110 TESTED AT [address] (test raoz=8785) [facility] [address] CT, BRAIN, WITHOUT [id number] 15:31:00Reason for exam:->Cerebral embolizationWhat is the patient's [...] Boykin Verified Date/Time: 05/23/2018 15:31:32 Reading Location: [facility] B1 C013V Neuro Reading Room POCT-GLUCOSE [id number] 12:34:00 Test Item Value Reference Range Comments POC-GLUCOSE METER (BEAKER) 204 mg/dL 70-110 TESTED AT [address] (test ihbo=0642) [facility] [address] [id number] 08:24:00 Test Item Value Reference Range Comments FERRITIN (BEAKER) (test yjfh=276) 435 ng/mL 5-275 POCT-GLUCOSE [id number] 08:21:00 Test Item Value Reference Range Comments POC-GLUCOSE METER (BEAKER) 134 mg/dL 70-[address] [facility] [address] [facility] (test qnbk=8118) [facility] [address] IRON, TIBC, % SAT. (WITHOUT FERRITIN)2018-05-23 07:34:00 Test Item Value Reference Range Comments IRON (BEAKER) (test bxsn=586) 63 ug/dL 40-160 TOTAL IRON BINDING CAPACITY (BEAKER) (test 224 ug/dL 250-450 uaed=201) IRON % SATURATION (2) (BEAKER) (test jagq=6854) 28 % 20-55 [id number] 06:45:00 Test Item Value Reference Range Comments PARTIAL THROMBOPLASTIN TIME (BEAKER) (test 94.3 seconds 22.5-36.0 qsjq=496) [id number] 06:05:00 Test Item Value Reference Range Comments MAGNESIUM (BEAKER) (test tuec=123) 2.3 mg/dL 1.6-2.6 BASIC METABOLIC [id number] 06:05:00 Test Item Value Reference Range Comments SODIUM (BEAKER) (test 138 meq/L 136-145 nvtt=731) POTASSIUM (BEAKER) (test 3.5 meq/L 3.5-5.1 zutf=476) CHLORIDE (BEAKER) (test 102 meq/L 98-107 iceq=907) CO2 (BEAKER) (test 27 meq/L 22-29 zefz=858) BLOOD UREA NITROGEN 38 mg/dL 7-21 (BEAKER) (test ufuz=300) CREATININE (BEAKER) (test 1.16 mg/dL 0.57-1.25 ilhb=256) GLUCOSE RANDOM (BEAKER) 118 mg/dL 70-105 (test hobo=868) CALCIUM (BEAKER) (test 8.9 mg/dL 8.4-10.2 zocy=275) EGFR (BEAKER) (test 60 mL/min/1.73 sq m ESTIMATED GFR IS NOT uxve=8797) ACCURATE CREATININE CLEARANCE IN PREDICTING GLOMERULAR FILTRATION RATE. ESTIMATED GFR IS NOT APPLICABLE FOR DIALYSIS PATIENTS. CBC (HEMOGRAM ONLY)2018-05-23 05:55:00 Test Item Value Reference Range Comments WHITE BLOOD CELL COUNT (BEAKER) (test stze=986) 9.8 K/ L 3.5-10.5 RED BLOOD CELL COUNT (BEAKER) (test qiki=293) 2.77 M/ L 4.63-6.08 HEMOGLOBIN (BEAKER) (test ylan=373) 7.7 GM/DL 13.7-17.5 HEMATOCRIT (BEAKER) (test dqjx=679) 24.0 % 40.1-51.0 MEAN CORPUSCULAR VOLUME (BEAKER) (test fhpd=429) 86.6 fL 79.0-92.2 MEAN CORPUSCULAR HEMOGLOBIN (BEAKER) (test 27.8 pg 25.7-32.2 sfnj=776) MEAN CORPUSCULAR HEMOGLOBIN CONC (BEAKER) (test 32.1 GM/DL 32.3-36.5 oevk=055) RED CELL DISTRIBUTION WIDTH (BEAKER) (test 15.9 % 11.6-14.4 eihc=759) PLATELET COUNT (BEAKER) (test fztm=113) 74 K/CU MM 150-450 MEAN PLATELET VOLUME (BEAKER) (test bpsi=089) 11.8 fL 9.4-12.4 NUCLEATED RED BLOOD CELLS (BEAKER) (test 0 /100 WBC 0-0 vsiw=854) [id number] 23:49:00 Test Item Value Reference Range Comments PARTIAL THROMBOPLASTIN TIME (BEAKER) (test 82.0 seconds 22.5-36.0 doju=740) POCT-GLUCOSE [id number] 22:25:00 Test Item Value Reference Range Comments POC-GLUCOSE METER (BEAKER) 212 mg/dL 70-110 TESTED AT [address] (test spsz=5898) [place] [id number] 21:32:00 Test Item Value Reference Range Comments PARTIAL THROMBOPLASTIN TIME (BEAKER) (test 131.6 seconds 22.5-36.0 dmhf=931) POCT-GLUCOSE [id number] 17:58:00 Test Item Value Reference Range Comments POC-GLUCOSE METER (BEAKER) 296 mg/dL 70-110 TESTED AT [address] (test stwd=5966) [place] [id number] 14:27:00 Test Item Value Reference Range Comments PARTIAL THROMBOPLASTIN TIME (BEAKER) (test 96.3 seconds 22.5-36.0 baea=652) URINE [id number] 12:50:00 Test Item Value Reference Range Comments CULTURE (BEAKER) (test yend=6376) No growth [id number] 12:49:00 Test Item Value Reference Range Comments PARTIAL THROMBOPLASTIN TIME (BEAKER) (test 150.3 seconds 22.5-36.0 xozy=391) [id number] 05:53:00 Test Item Value Reference Range Comments PARTIAL THROMBOPLASTIN TIME (BEAKER) (test 44.1 seconds 22.5-36.0 xnrz=866) [id number] 03:32:00 Test Item Value Reference Range Comments PROTIME (BEAKER) (test mppo=882) 15.0 seconds 11.7-14.7 INR (BEAKER) (test yqsg=521) 1.2 <=5.9 PARTIAL THROMBOPLASTIN TIME (BEAKER) (test 179.7 seconds 22.5-36.0 fszl=674) RECOMMENDED COUMADIN/WARFARIN INR THERAPY RANGESSTANDARD DOSE: 2.0 - 3.0 Includes: PROPHYLAXIS forvenous thrombosis, systemic embolization; TREATMENT for venous thrombosis and/or pulmonary embolus.HIGH RISK: Target INR is 2.5-3.5 for patients with mechanical heart valves.[id number] 02:54:00 Test Item Value Reference Range Comments PHOSPHORUS (BEAKER) (test avey=479) 3.6 mg/dL 2.3-4.7 [id number] 02:54:00 Test Item Value Reference Range Comments MAGNESIUM (BEAKER) (test bwth=279) 2.4 mg/dL 1.6-2.6 BASIC METABOLIC [id number] 02:54:00 Test Item Value Reference Range Comments SODIUM (BEAKER) (test 138 meq/L 136-145 fnfx=859) POTASSIUM (BEAKER) (test 3.7 meq/L 3.5-5.1 zwnc=358) CHLORIDE (BEAKER) (test 101 meq/L 98-107 vvek=036) CO2 (BEAKER) (test 27 meq/L 22-29 yvlk=696) BLOOD UREA NITROGEN 44 mg/dL 7-21 (BEAKER) (test htsu=010) CREATININE (BEAKER) (test 1.30 mg/dL 0.57-1.25 hugy=466) GLUCOSE RANDOM (BEAKER) 131 mg/dL 70-105 (test dify=839) CALCIUM (BEAKER) (test 8.9 mg/dL 8.4-10.2 fzvi=058) EGFR (BEAKER) (test 52 mL/min/1.73 sq m ESTIMATED GFR IS NOT qlyw=8860) ACCURATE CREATININE CLEARANCE IN PREDICTING GLOMERULAR FILTRATION RATE. ESTIMATED GFR IS NOT APPLICABLE FOR DIALYSIS PATIENTS. VANCOMYCIN LEVEL, [id number] 02:53:00 Test Item Value Reference Range Comments VANCOMYCIN RANDOM (BEAKER) (test ssfl=292) 24.4 ug/mL Reference Range: No NormalsCALCIUM, [id number] 02:49:00 Test Item Value Reference Range Comments CALCIUM IONIZED (BEAKER) (test tksx=991) 1.15 mmol/L 1.12-1.27 PH, BLOOD (BEAKER) (test isam=5709) 7.40 CBC (HEMOGRAM ONLY)2018-05-22 02:29:00 Test Item Value Reference Range Comments WHITE BLOOD CELL COUNT (BEAKER) (test bhzh=476) 13.9 K/ L 3.5-10.5 RED BLOOD CELL COUNT (BEAKER) (test mibz=482) 2.94 M/ L 4.63-6.08 HEMOGLOBIN (BEAKER) (test gaog=994) 8.3 GM/DL 13.7-17.5 HEMATOCRIT (BEAKER) (test yvus=811) 25.5 % 40.1-51.0 MEAN CORPUSCULAR VOLUME (BEAKER) (test nzui=879) 86.7 fL 79.0-92.2 MEAN CORPUSCULAR HEMOGLOBIN (BEAKER) (test 28.2 pg 25.7-32.2 hikh=043) MEAN CORPUSCULAR HEMOGLOBIN CONC (BEAKER) (test 32.5 GM/DL 32.3-36.5 myfc=171) RED CELL DISTRIBUTION WIDTH (BEAKER) (test 15.9 % 11.6-14.4 ypxa=060) PLATELET COUNT (BEAKER) (test hcoz=059) 67 K/CU MM 150-450 MEAN PLATELET VOLUME (BEAKER) (test prda=049) 11.8 fL 9.4-12.4 NUCLEATED RED BLOOD CELLS (BEAKER) (test 0 /100 WBC 0-0 gwsr=396) [id number] 00:28:00 Test Item Value Reference Range Comments PROTIME (BEAKER) (test rsys=861) 15.9 seconds 11.7-14.7 INR (BEAKER) (test hpjq=440) 1.3 <=5.9 PARTIAL THROMBOPLASTIN TIME (BEAKER) (test 170.7 seconds 22.5-36.0 itgn=496) RECOMMENDED COUMADIN/WARFARIN INR THERAPY RANGESSTANDARD DOSE: 2.0 - 3.0 Includes: PROPHYLAXIS forvenous thrombosis, systemic embolization; TREATMENT for venous thrombosis and/or pulmonary embolus.HIGH RISK: Target INR is 2.5-3.5 for patients with mechanical heart valves.BASIC METABOLIC [id number] 13:37: 00 Test Item Value Reference Range Comments SODIUM (BEAKER) (test 139 meq/L 136-145 ygdn=902) POTASSIUM (BEAKER) (test 3.8 meq/L 3.5-5.1 hztn=712) CHLORIDE (BEAKER) (test 101 meq/L 98-107 fbag=673) CO2 (BEAKER) (test 26 meq/L 22-29 pwqe=486) BLOOD UREA NITROGEN 46 mg/dL 7-21 (BEAKER) (test ulcx=706) CREATININE (BEAKER) (test 1.60 mg/dL 0.57-1.25 oaft=559) GLUCOSE RANDOM (BEAKER) 160 mg/dL 70-105 (test jxgk=795) CALCIUM (BEAKER) (test 9.1 mg/dL 8.4-10.2 eldy=887) EGFR (BEAKER) (test 41 mL/min/1.73 sq m ESTIMATED GFR IS NOT fede=0947) ACCURATE CREATININE CLEARANCE IN PREDICTING GLOMERULAR FILTRATION RATE. ESTIMATED GFR IS NOT APPLICABLE FOR DIALYSIS PATIENTS. MR, MRA, BRAIN, WITHOUT [id number] 12:04:00Reason for exam:-> Ischemic Stroke EvaluationFINAL REPORT MRA Head and Neck CLINICAL HISTORY: Stroke TECHNIQUE: MRA of thehead utilizing 3-D upgx-mr-vvsbjd technique, with 3-D reconstructions.MRA of the neck utilizing 2-D and 3-D time- of-flight technique, with 3-D reconstructions. COMPARISON: None FINDINGS: There is no evidence for a [place] proximal branch vessel occlusion. There [...] vertebral arteries. IMPRESSION: No evidence for a [place] proximal branchvessel occlusion. No hemodynamically significant stenosis in the internal carotid arteries. 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 Signed: Jaycob Alvarado Verified Date/Time: 05/21/2018 12:04:26 Reading Location: [address] Neuro Reading Room MR, MRA, NECK, WITHOUT IV [id number] 12:04:00Reason for exam:->Ischemic Stroke EvaluationFINAL REPORT MRA Head and Neck CLINICAL HISTORY: Stroke TECHNIQUE: MRA of thehead utilizing 3-D dgus-nk-tlpxwe technique, with 3-D reconstructions.MRA of the neck utilizing 2-D and 3-D lcgd-bh-juttwd technique, with 3-D reconstructions. COMPARISON: None FINDINGS: There is no evidence for a [place] of [place] proximal branch vessel occlusion. There [...] vertebral arteries. IMPRESSION: No evidence for a [place] of [place] proximal branchvessel occlusion. No hemodynamically significant stenosis in the internal carotid arteries. 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 Signed: Jaycob Alvarado Verified Date/Time: 05/21/2018 12:04:26 Reading Location: [address] Neuro Reading Room MR, BRAIN, WITHOUT [id number] 11:58:00Reason for exam:->Ischemic Stroke EvaluationFINAL REPORT MRI [...] Alvarado Verified Date/Time: 05/21/2018 11:58:08 Reading Location: [address] Neuro Reading Room RAD, CHEST, 1 VIEW, NON [id number] 10:54:00Reason for exam:->hypoxemiaShould this be performed at [...] [place] Verified Date/Time: 05/21/2018 10:54:40 Reading Location: [facility] B1 C013X Ortho Consult Reading Room HEMOGLOBIN [id number] 08:30:00 Test Item Value Reference Range Comments HEMOGLOBIN A1C (BEAKER) (test ooen=663) 8.1 % 4.3-6.1 LIPID [id number] 07:31:00 Test Item Value Reference Range Comments TRIGLYCERIDES (BEAKER) (test lcel=808) 348 mg/dL CHOLESTEROL (BEAKER) (test nern=381) 208 mg/dL HDL CHOLESTEROL (BEAKER) (test mrdy=088) 26 mg/dL LDL CHOLESTEROL CALCULATED (BEAKER) (test 112 mg/dL fgml=254) Triglyceride Reference Range: Low Risk <150 Borderline 150- 199 High Risk 200-499 Very High Risk >=500Cholesterol Reference Range: Low Risk <200 Borderline 200-239 High Risk > 240HDL Cholesterol Reference Range: Low Risk >=60 High Risk <40LDL Cholesterol Reference Range: Optimal <100 Near Optimal 100-129 Borderline 130-159 High 160-189 Very High >=[id number] 04:49:00 Test Item Value Reference Range Comments PHOSPHORUS (BEAKER) (test xkhh=124) 6.4 mg/dL 2.3-4.7 [id number] 04:49:00 Test Item Value Reference Range Comments MAGNESIUM (BEAKER) (test csrs=619) 2.3 mg/dL 1.6-2.6 BASIC METABOLIC [id number] 04:49:00 Test Item Value Reference Range Comments SODIUM (BEAKER) (test 139 meq/L 136-145 oqdo=492) POTASSIUM (BEAKER) (test 3.8 meq/L 3.5-5.1 hdmh=225) CHLORIDE (BEAKER) (test 102 meq/L 98-107 vaou=148) CO2 (BEAKER) (test 23 meq/L 22-29 jmnz=208) BLOOD UREA NITROGEN 49 mg/dL 7-21 (BEAKER) (test gdho=419) CREATININE (BEAKER) (test 1.96 mg/dL 0.57-1.25 sdev=239) GLUCOSE RANDOM (BEAKER) 175 mg/dL 70-105 (test vvoq=671) CALCIUM (BEAKER) (test 8.7 mg/dL 8.4-10.2 snde=983) EGFR (BEAKER) (test 33 mL/min/1.73 sq m ESTIMATED GFR IS NOT eyys=7410) ACCURATE CREATININE CLEARANCE IN PREDICTING GLOMERULAR FILTRATION RATE. ESTIMATED GFR IS NOT APPLICABLE FOR DIALYSIS PATIENTS. VITAMIN [id number] 04:11:00 Test Item Value Reference Range Comments VITAMIN B12 (BEAKER) (test zzbx=468) 692 pg/mL 213-816 TSH/FREE T4 IF [id number] 04:11:00 Test Item Value Reference Range Comments THYROID STIMULATING HORMONE (BEAKER) (test 0.77 uIU/mL 0.35-4.94 vqvj=360) CALCIUM, [id number] 03:53:00 Test Item Value Reference Range Comments CALCIUM IONIZED (BEAKER) (test azwr=611) 1.12 mmol/L 1.12-1.27 PH, BLOOD (BEAKER) (test ltvr=9012) 7.35 CBC (HEMOGRAM ONLY)2018-05-21 03:16:00 Test Item Value Reference Range Comments WHITE BLOOD CELL COUNT (BEAKER) (test lqxi=569) 16.4 K/ L 3.5-10.5 RED BLOOD CELL COUNT (BEAKER) (test cohv=121) 3.61 M/ L 4.63-6.08 HEMOGLOBIN (BEAKER) (test dlxp=068) 10.1 GM/DL 13.7-17.5 HEMATOCRIT (BEAKER) (test uwvd=102) 32.2 % 40.1-51.0 MEAN CORPUSCULAR VOLUME (BEAKER) (test gmng=169) 89.2 fL 79.0-92.2 MEAN CORPUSCULAR HEMOGLOBIN (BEAKER) (test 28.0 pg 25.7-32.2 jgvb=125) MEAN CORPUSCULAR HEMOGLOBIN CONC (BEAKER) (test 31.4 GM/DL 32.3-36.5 vloj=331) RED CELL DISTRIBUTION WIDTH (BEAKER) (test 16.1 % 11.6-14.4 nddn=513) PLATELET COUNT (BEAKER) (test qklf=501) 81 K/CU MM 150-450 MEAN PLATELET VOLUME (BEAKER) (test wkbe=088) 11.0 fL 9.4-12.4 NUCLEATED RED BLOOD CELLS (BEAKER) (test 0 /100 WBC 0-0 zfvo=909) EEG AWAKE AND [id number] 15:54:00Reason for exam:->AMSDate(s) of EEDATE OF REPORT: 05/20/2018ACC: [id number] Number: [id number] Location : Inpatient ICUStart time: 14:17Stop time: 14:38ICD-10: R56.9CPT Code: 38290 HISTORY: 87 y.o. RHM w/ severe who [...] Rooney MDNeurophysiology Fellow, PGY5 Betsey Tello NeurophysiologistCHI [facility] POCT- GLUCOSE [id number] 13:52:00 Test Item Value Reference Range Comments POC-GLUCOSE METER (BEAKER) 163 mg/dL 70-[address] [facility] [address] [facility] (test mhml=0907) [facility] [address] TROPONIN [id number] 11:59:00 Test Item Value Reference Range Comments TROPONIN I (BEAKER) (test zcav=984) 1.13 ng/mL 0.00-0.03 Troponin I (TnI) levels [...] acute neurological disease, and persistent tachyarrhythmia.COMPREHENSIVE METABOLIC [id number] 11:47:00 Test Item Value Reference Range Comments TOTAL PROTEIN (BEAKER) 5.7 gm/dL 6.0-8.3 (test pabk=879) ALBUMIN (BEAKER) (test 3.4 g/dL 3.5-5.0 hesz=7360) ALKALINE PHOSPHATASE 42 U/L 40-150 (BEAKER) (test mggl=204) BILIRUBIN TOTAL (BEAKER) 0.8 mg/dL 0.2-1.2 (test stpl=182) SODIUM (BEAKER) (test 139 meq/L 136-145 cpmy=491) POTASSIUM (BEAKER) (test 4.2 meq/L 3.5-5.1 cege=886) CHLORIDE (BEAKER) (test 100 meq/L 98-107 xwne=975) CO2 (BEAKER) (test 23 meq/L 22-29 serk=655) BLOOD UREA NITROGEN 38 mg/dL 7-21 (BEAKER) (test gdye=285) CREATININE (BEAKER) (test 2.17 mg/dL 0.57-1.25 wjcm=771) GLUCOSE RANDOM (BEAKER) 129 mg/dL 70-105 (test wmdk=036) CALCIUM (BEAKER) (test 9.0 mg/dL 8.4-10.2 cidk=151) AST (SGOT) (BEAKER) (test 27 U/L 5-34 lzrq=778) ALT (SGPT) (BEAKER) (test 14 U/L 6-55 mqcv=533) EGFR (BEAKER) (test 29 mL/min/1.73 sq m ESTIMATED GFR IS NOT zfhj=4891) ACCURATE CREATININE CLEARANCE IN PREDICTING GLOMERULAR FILTRATION RATE. ESTIMATED GFR IS NOT APPLICABLE FOR DIALYSIS PATIENTS. CREATINE KINASE (CK), TOTAL AND [id number] 11:42:00 Test Item Value Reference Range Comments CREATINE KINASE TOTAL (BEAKER) (test lzwc=324) 138 U/L 29-200 CREATINE KINASE-MB (BEAKER) (test nkxi=423) 4.2 ng/mL 0.0-6.6 CREATINE KINASE-MB INDEX (BEAKER) (test ncdw=933) 3.0 % CK-MB Reference Range:<6.7 Normal6.7-10.0 Borderline>10.0 [id number] 11:36:00 Test Item Value Reference Range Comments PHOSPHORUS (BEAKER) (test zuyi=335) 5.4 mg/dL 2.3-4.7 [id number] 11:36:00 Test Item Value Reference Range Comments MAGNESIUM (BEAKER) (test odru=949) 2.3 mg/dL 1.6-2.6 RAD, ABDOMEN/KUB, 1 VIEW [id number] 11:33:00Reason for exam:->Nasogastric tube insertionShould this be performed at the bedside?->YesFINAL REPORT Abdomen one view INDICATION: Nasogastric tube insertion COMPARISON: None available IMPRESSION: NG tube extends to the gastric body. The imaged bowel gas pattern is nonspecific. There are degenerative spine changes and incidental vascular calcifications. The imaged chest is similar to 2017. Signed: Kenan Mott MDReport Verified Date/Time: 05/20/2018 11: 33:02 Reading Location: [facility] Radiology Reading Room LACTIC ACID, VENOUS, WHOLE [id number] 11:32:00 Test Item Value Reference Range Comments LACTATE BLOOD VENOUS (2) (BEAKER) (test 2.1 mmol/L 0.5-2.2 bhan=4900) Effective 04/02/2016: Units/Reference Range ChangeNew: 0.5-2.2 mmol/L Previous: 5 -20 mg/dLBLOOD GAS, [id number] 11:21:00 Test Item Value Reference Range Comments PH VENOUS (BEAKER) (test lbye=778) 7.40 7.32-7.42 PCO2 VENOUS (BEAKER) (test pwtq=563) 45 mmHg 41-51 PO2 VENOUS (BEAKER) (test tnwy=616) 26 mmHg 25-40 O2 SATURATION VENOUS (BEAKER) (test zmqz=828) 46.3 % 40.0-70.0 HCO3 VENOUS (BEAKER) (test vzfg=057) 27 mmol/L 21-29 BASE EXCESS VENOUS (BEAKER) (test yioq=717) 1.8 mmol/L -2.0-3.0 PATIENT TEMPERATURE (BEAKER) (test xknk=7164) 36.9 C FIO2 (BEAKER) (test xwtm=7901) 36.0 % BASIC METABOLIC [id number] 05:05:00 Test Item Value Reference Range Comments SODIUM (BEAKER) (test 140 meq/L 136-145 ymkj=486) POTASSIUM (BEAKER) (test 3.9 meq/L 3.5-5.1 Specimen slightly khyh=618) hemolyzed CHLORIDE (BEAKER) (test 105 meq/L 98-107 xsxx=813) CO2 (BEAKER) (test 21 meq/L 22-29 rzrv=631) BLOOD UREA NITROGEN 31 mg/dL 7-21 (BEAKER) (test cipw=422) CREATININE (BEAKER) (test 1.63 mg/dL 0.57-1.25 Specimen slightly jicr=871) hemolyzed GLUCOSE RANDOM (BEAKER) 124 mg/dL 70-105 (test mfna=031) CALCIUM (BEAKER) (test 8.0 mg/dL 8.4-10.2 wtzz=504) EGFR (BEAKER) (test 40 mL/min/1.73 sq m ESTIMATED GFR IS NOT mgtm=6027) ACCURATE CREATININE CLEARANCE IN PREDICTING GLOMERULAR FILTRATION RATE. ESTIMATED GFR IS NOT APPLICABLE FOR DIALYSIS PATIENTS. CBC (HEMOGRAM ONLY)2018-05-20 04:44:00 Test Item Value Reference Range Comments WHITE BLOOD CELL COUNT (BEAKER) (test dkok=098) 16.5 K/ L 3.5-10.5 RED BLOOD CELL COUNT (BEAKER) (test yhfz=356) 3.86 M/ L 4.63-6.08 HEMOGLOBIN (BEAKER) (test oflh=013) 10.6 GM/DL 13.7-17.5 HEMATOCRIT (BEAKER) (test wwub=484) 34.3 % 40.1-51.0 MEAN CORPUSCULAR VOLUME (BEAKER) (test aqqg=693) 88.9 fL 79.0-92.2 MEAN CORPUSCULAR HEMOGLOBIN (BEAKER) (test 27.5 pg 25.7-32.2 zbkv=910) MEAN CORPUSCULAR HEMOGLOBIN CONC (BEAKER) (test 30.9 GM/DL 32.3-36.5 ggfd=558) RED CELL DISTRIBUTION WIDTH (BEAKER) (test 16.2 % 11.6-14.4 nkce=013) PLATELET COUNT (BEAKER) (test mmlv=476) 103 K/CU MM 150-450 MEAN PLATELET VOLUME (BEAKER) (test sgma=622) 11.2 fL 9.4-12.4 NUCLEATED RED BLOOD CELLS (BEAKER) (test 0 /100 WBC 0-0 pbdg=733) URINALYSIS W/ [id number] 00:09:00 Test Item Value Reference Range Comments COLOR (BEAKER) (test fpsn=129) Yellow CLARITY (BEAKER) (test pcbm=058) Clear SPECIFIC GRAVITY UA (BEAKER) (test xkop=823) 1.017 1.001-1.035 PH UA (BEAKER) (test rcon=567) 5.0 5.0-8.0 PROTEIN UA (BEAKER) (test qspx=667) Negative Negative GLUCOSE UA (BEAKER) (test ymtm=948) Negative Negative KETONES UA (BEAKER) (test vwtp=553) Negative Negative BILIRUBIN UA (BEAKER) (test slqi=991) Negative Negative BLOOD UA (BEAKER) (test cref=238) Small Negative NITRITE UA (BEAKER) (test fema=984) Negative Negative LEUKOCYTE ESTERASE UA (BEAKER) (test xkhe=549) Negative Negative UROBILINOGEN UA (BEAKER) (test vfpf=333) 0.2 mg/dL 0.2-1.0 RBC UA (BEAKER) (test abha=252) 12 /HPF WBC UA (BEAKER) (test pqkf=117) 1 /HPF MUCUS (BEAKER) (test hhcd=1068) Rare AMORPHOUS CRYSTALS (BEAKER) (test xorm=0109) Occasional SOURCE(BEAKER) (test wlqc=4057) Urine, [place] RAD, CHEST, 1 VIEW, NON [id number] 21:46:00Reason for exam:->tavrShould this be performed at the bedside?->YesFINAL REPORT INDICATION: tavr COMPARISON: None. TECHNIQUE: Chest radiograph, single view, portable technique. 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 Intact median sternotomy wires noted. No pulmonary edema, aspiration, pneumothorax, or pleural effusion demonstrated. Signed: Vladislav Michael MDRort Verified Date/Time: 05/19/2018 21:46:23 Reading Location: [address] Consult Reading Room POCT-LACTIC ACID, [id number] 21:21:00 Test Item Value Reference Range Comments POC-LACTIC ACID, ARTERIAL 1.5 mmol/L 0.4-1.3 [address] (BEAKER) (test aysi=4883) [place] [id number] POCT-BLOOD GASES, [id number] 21:21:00 Test Item Value Reference Range Comments TEMP, CELSIUS-POC (BEAKER) 37.1 (test yuuw=9355) FIO2-POC (BEAKER) (test 29 TESTED AT [address] bqug=7696) [place] [id number] PH, ARTERIAL-POC (BEAKER) 7.468 7.350-7.450 (test wjhq=1024) PCO2, ARTERIAL-POC (BEAKER) 34.4 mm Hg 35.0-45.0 (test yaky=0529) PO2, ARTERIAL-POC (BEAKER) 63.0 mm Hg 80.0-90.0 (test zjeo=6381) SO2, ARTERIAL-POC (BEAKER) 93.0 % 96.0-97.0 (test smkn=2424) HCO3, ARTERIAL-POC (BEAKER) 24.9 meq/L 21.0-29.0 (test wfmc=6532) BASE EXCESS, ARTERIAL-POC 1.0 meq/L -2.0-3.0 (BEAKER) (test rbzg=7496) [id number] 21:21:00 Test Item Value Reference Range Comments POC-SODIUM (BEAKER) (test 137 meq/L 135-148 TESTED AT [address] pbhm=6559) [place] [address] [id number] 21:21:00 Test Item Value Reference Range Comments POC-POTASSIUM (BEAKER) (test 3.6 meq/L 3.6-5.5 TESTED AT [address] form=6088) [place] [address] [id number] 21:21:00 Test Item Value Reference Range Comments POC-GLUCOSE (BEAKER) (test 152 mg/dL 70-110 TESTED AT [address] hfmg=6770) [place] [address] POCT-CALCIUM [id number] 21:21:00 Test Item Value Reference Range Comments POC-CALCIUM IONIZED (BEAKER) 1.19 mmol/L 1.12-1.27 TESTED AT [address] (test xlyt=9352) [place] [address] [id number] 21:21:00 Test Item Value Reference Range Comments POC-HEMATOCRIT (BEAKER) (test 32 % 40-50 TESTED AT [address] dvjb=5135) [place] [address] [id number] 21:21:00 Test Item Value Reference Range Comments POC-HEMOGLOBIN (BEAKER) 10.9 g/dL 13.0-16.8 TESTED AT [address] (test gwzf=4270) [place] [address]TESTED AT [place] [address] TROPONIN [id number] 20:56:00 Test Item Value Reference Range Comments TROPONIN I (BEAKER) (test rgrm=952) 0.73 ng/mL 0.00-0.03 Troponin I (TnI) levels [...] and persistent tachyarrhythmia.CREATINE KINASE (CK), TOTAL AND [id number] 20:49:00 Test Item Value Reference Range Comments CREATINE KINASE TOTAL (BEAKER) (test ioew=696) 41 U/L 29-200 CREATINE KINASE-MB (BEAKER) (test vhou=328) 3.5 ng/mL 0.0-6.6 CREATINE KINASE-MB INDEX (BEAKER) (test llym=616) 8.5 % CK-MB Reference Range:<6.7 Normal6.7-10.0 Borderline>10.0 AbnormalCT, BRAIN/STROKE [id number] 20:46:00Reason for exam:-> altered mental statusFINAL REPORT [...] on 05/19/2018 at 2040. Signed: Micheal Boykin MDReport Verified Date/Time: 05/19/2018 20:46:09 Reading Location: [facility] Radiology Reading Room [facility] METABOLIC [id number] 20: 42:00 Test Item Value Reference Range Comments SODIUM (BEAKER) (test 138 meq/L 136-145 rdhz=926) POTASSIUM (BEAKER) (test 3.8 meq/L 3.5-5.1 nrtn=129) CHLORIDE (BEAKER) (test 100 meq/L 98-107 azai=453) CO2 (BEAKER) (test 26 meq/L 22-29 dyol=034) BLOOD UREA NITROGEN 27 mg/dL 7-21 (BEAKER) (test ovdv=943) CREATININE (BEAKER) (test 1.41 mg/dL 0.57-1.25 unch=498) GLUCOSE RANDOM (BEAKER) 146 mg/dL 70-105 (test tssq=888) CALCIUM (BEAKER) (test 8.7 mg/dL 8.4-10.2 nzox=379) EGFR (BEAKER) (test 48 mL/min/1.73 sq m ESTIMATED GFR IS NOT adxl=0626) ACCURATE CREATININE CLEARANCE IN PREDICTING GLOMERULAR FILTRATION RATE. ESTIMATED GFR IS NOT APPLICABLE FOR DIALYSIS PATIENTS. PT/[id number] 20:32:00 Test Item Value Reference Range Comments PROTIME (BEAKER) (test dbto=815) 14.2 seconds 11.7-14.7 INR (BEAKER) (test bvfk=754) 1.1 <=5.9 PARTIAL THROMBOPLASTIN TIME (BEAKER) (test 31.4 seconds 22.5-36.0 zwlg=693) RECOMMENDED COUMADIN/WARFARIN INR THERAPY RANGESSTANDARD DOSE: 2.0 - 3.0 Includes: PROPHYLAXIS forvenous thrombosis, systemic embolization; TREATMENT for venous thrombosis and/or pulmonary embolus.HIGH RISK: Target INR is 2.5-3.5 for patients with mechanical heart valves.CBC W/PLT COUNT & AUTO [id number] 20:30:00 Test Item Value Reference Range Comments WHITE BLOOD CELL COUNT (BEAKER) (test sqeh=608) 12.5 K/ L 3.5-10.5 RED BLOOD CELL COUNT (BEAKER) (test wvrm=208) 3.77 M/ L 4.63-6.08 HEMOGLOBIN (BEAKER) (test jtaz=967) 10.4 GM/DL 13.7-17.5 HEMATOCRIT (BEAKER) (test egaz=814) 34.1 % 40.1-51.0 MEAN CORPUSCULAR VOLUME (BEAKER) (test rxhf=862) 90.5 fL 79.0-92.2 MEAN CORPUSCULAR HEMOGLOBIN (BEAKER) (test 27.6 pg 25.7-32.2 jfte=482) MEAN CORPUSCULAR HEMOGLOBIN CONC (BEAKER) (test 30.5 GM/DL 32.3-36.5 xztm=764) RED CELL DISTRIBUTION WIDTH (BEAKER) (test 16.4 % 11.6-14.4 douy=350) PLATELET COUNT (BEAKER) (test mzdg=315) 116 K/CU MM 150-450 MEAN PLATELET VOLUME (BEAKER) (test uscz=220) 10.6 fL 9.4-12.4 NUCLEATED RED BLOOD CELLS (BEAKER) (test 0 /100 WBC 0-0 bcdj=136) NEUTROPHILS RELATIVE PERCENT (BEAKER) (test 74 % qzxy=135) LYMPHOCYTES RELATIVE PERCENT (BEAKER) (test 18 % jfeh=600) MONOCYTES RELATIVE PERCENT (BEAKER) (test 6 % azkr=232) EOSINOPHILS RELATIVE PERCENT (BEAKER) (test 1 % ghtr=595) BASOPHILS RELATIVE PERCENT (BEAKER) (test 0 % boon=779) NEUTROPHILS ABSOLUTE COUNT (BEAKER) (test 9.27 K/ L 1.78-5.38 zqmg=859) LYMPHOCYTES ABSOLUTE COUNT (BEAKER) (test 2.24 K/ L 1.32-3.57 lriq=810) MONOCYTES ABSOLUTE COUNT (BEAKER) (test 0.73 K/ L 0.30-0.82 rxog=804) EOSINOPHILS ABSOLUTE COUNT (BEAKER) (test 0.13 K/ L 0.04-0.54 hwsf=690) BASOPHILS ABSOLUTE COUNT (BEAKER) (test 0.03 K/ L 0.01-0.08 sbwk=687) IMMATURE GRANULOCYTES-RELATIVE PERCENT (BEAKER) 1 % 0-1 (test lubt=8462) POCT-GLUCOSE [id number] 20:01:00 Test Item Value Reference Range Comments POC-GLUCOSE METER (BEAKER) 182 mg/dL 70-[address] [facility] [address] [facility] (test mxdd=3602) [facility] [address] [id number] 09:06:00 Test Item Value Reference Range Comments ACTIVATED CLOTTING TIME [address] [facility] [address] [facility] (BEAKER) (test pqdm=329) [facility] [address] B-TYPE NATRIURETIC FACTOR (BNP)2018-04-21 15:09:00 Test Item Value Reference Range Comments B-TYPE NATRIURETIC PEPTIDE (BEAKER) (test 785 pg/mL 0-100 bhet=234) COMPREHENSIVE METABOLIC [id number] 15:02:00 Test Item Value Reference Range Comments TOTAL PROTEIN (BEAKER) 6.9 gm/dL 6.0-8.3 (test avvd=183) ALBUMIN (BEAKER) (test 4.0 g/dL 3.5-5.0 kibm=7420) ALKALINE PHOSPHATASE 42 U/L 40-150 (BEAKER) (test rnmd=021) BILIRUBIN TOTAL (BEAKER) 0.5 mg/dL 0.2-1.2 (test kxtm=859) SODIUM (BEAKER) (test 135 meq/L 136-145 plpg=260) POTASSIUM (BEAKER) (test 4.3 meq/L 3.5-5.1 stig=489) CHLORIDE (BEAKER) (test 99 meq/L 98-107 lfgh=964) CO2 (BEAKER) (test 25 meq/L 22-29 qwxm=139) BLOOD UREA NITROGEN 31 mg/dL 7-21 (BEAKER) (test bbot=209) CREATININE (BEAKER) (test 1.39 mg/dL 0.57-1.25 htne=309) GLUCOSE RANDOM (BEAKER) 194 mg/dL 70-105 (test tykl=263) CALCIUM (BEAKER) (test 9.7 mg/dL 8.4-10.2 kiqu=762) AST (SGOT) (BEAKER) (test 12 U/L 5-34 rhgv=472) ALT (SGPT) (BEAKER) (test 15 U/L 6-55 iutf=598) EGFR (BEAKER) (test 48 mL/min/1.73 sq m ESTIMATED GFR IS NOT imtg=5785) ACCURATE CREATININE CLEARANCE IN PREDICTING GLOMERULAR FILTRATION RATE. ESTIMATED GFR IS NOT APPLICABLE FOR DIALYSIS PATIENTS. PROTHROMBIN TIME/[id number] 14:58:00 Test Item Value Reference Range Comments PROTIME (BEAKER) (test ains=121) 12.8 seconds 11.7-14.7 INR (BEAKER) (test xgog=183) 1.0 <=5.9 RECOMMENDED COUMADIN/WARFARIN INR THERAPY RANGESSTANDARD DOSE: 2.0 - 3.0 Includes: PROPHYLAXIS forvenous thrombosis, systemic embolization; TREATMENT for venous thrombosis and/or pulmonary embolus.HIGH RISK: Target INR is 2.5-3.5 for patients with mechanical heart valves.CBC W/PLT COUNT & AUTO [id number] 14:45:00 Test Item Value Reference Range Comments WHITE BLOOD CELL COUNT (BEAKER) (test fqdo=978) 10.3 K/ L 3.5-10.5 RED BLOOD CELL COUNT (BEAKER) (test etdp=778) 4.35 M/ L 4.63-6.08 HEMOGLOBIN (BEAKER) (test blei=485) 11.9 GM/DL 13.7-17.5 HEMATOCRIT (BEAKER) (test rkku=452) 37.6 % 40.1-51.0 MEAN CORPUSCULAR VOLUME (BEAKER) (test nfbs=486) 86.4 fL 79.0-92.2 MEAN CORPUSCULAR HEMOGLOBIN (BEAKER) (test 27.4 pg 25.7-32.2 ryum=535) MEAN CORPUSCULAR HEMOGLOBIN CONC (BEAKER) (test 31.6 GM/DL 32.3-36.5 yjrd=390) RED CELL DISTRIBUTION WIDTH (BEAKER) (test 16.5 % 11.6-14.4 bbqx=234) PLATELET COUNT (BEAKER) (test xkxc=636) 158 K/CU MM 150-450 MEAN PLATELET VOLUME (BEAKER) (test pzao=004) 11.1 fL 9.4-12.4 NUCLEATED RED BLOOD CELLS (BEAKER) (test 0 /100 WBC 0-0 btyw=099) NEUTROPHILS RELATIVE PERCENT (BEAKER) (test 73 % iqhz=509) LYMPHOCYTES RELATIVE PERCENT (BEAKER) (test 19 % wmyl=180) MONOCYTES RELATIVE PERCENT (BEAKER) (test 6 % ubcb=353) EOSINOPHILS RELATIVE PERCENT (BEAKER) (test 1 % sorh=918) BASOPHILS RELATIVE PERCENT (BEAKER) (test 0 % ifkw=881) NEUTROPHILS ABSOLUTE COUNT (BEAKER) (test 7.54 K/ L 1.78-5.38 rdys=873) LYMPHOCYTES ABSOLUTE COUNT (BEAKER) (test 1.96 K/ L 1.32-3.57 ovzz=916) MONOCYTES ABSOLUTE COUNT (BEAKER) (test 0.61 K/ L 0.30-0.82 acsk=042) EOSINOPHILS ABSOLUTE COUNT (BEAKER) (test 0.09 K/ L 0.04-0.54 pzyy=467) BASOPHILS ABSOLUTE COUNT (BEAKER) (test 0.03 K/ L 0.01-0.08 lvew=018) IMMATURE GRANULOCYTES-RELATIVE PERCENT (BEAKER) 1 % 0-1 (test fgsg=2437) CT, CTA [id number] 12:54:00Addendum BeginsREPORT STATUS:A Addendum: I agree with the previously described non vascular findings.. Additionally, the lungs demonstrate fibrotic changes which are most pronounced in the bilateral bases. Biapical pleural-parenchymal scarring is present. Signed: Dejon BlandMDReport Verified Date/Time: 04/20/2018 12:54: 28 Reading Location: [place] [address] Angio Body Reading RoomAddendum EndsFINAL REPORT CT angiography of the thoracoabdominal aorta and pelvic arteries, 19 Apr 2018 INDICATION: This is a 87 year old male with a diagnosis of aortic stenosis presents for preprocedure TAVR assessment. This study is performed in an attempt to avoid an invasive procedure. TECHNIQUE: Spiral acquisition before and during intravenous contrast administration using a Ate CT scanner. Images were obtained before and [...] 5. An addendum will be dictated bythe Supervisor Inspecting Radiologist regarding the nonvascular findings. Signed: Puneet Espinoza Verified Date/Time: 14:19:03 Reading Location: [place] [address], CTA, [id number] 12:54:00Addendum BeginsREPORT STATUS:A Addendum: I agree with the previously described non vascular findings.. Additionally, the lungs demonstrate fibrotic changes which are most pronounced in the bilateral bases. Biapical pleural-parenchymal scarring is present. Signed : Dejon BlandMDReport Verified Date/Time: 04/20/2018 12:54:28 Reading Location: [place] [address] Angio Body Reading RoomAddendum EndsFINAL REPORT CT [...] 5. An addendum will be dictated bythe Supervisor Inspecting Radiologist regarding the nonvascular findings. Signed: Puneet Espinoza MDReport Verified Date/Time: 14:19:03 Reading Location: [place] [address] Cardiology MRI POCT- [id number] 09:37:00 Test Item Value Reference Range Comments POC-CREATININE (NORAFerevo) 1.3 mg/dL 0.6-1.[address] [facility] [address] [place] [address] (test [id number]) [facility] [address] POC-EGFR (Signpost) (test 52 mL/min/1.73M2 afhf=[id number])
[2019-04-27] MEDS ORDERED: Ringers Lactate 1,000 ML IV ONE (11:25)
[2019-04-27] MEDS ORDERED: CEFAZOLIN/SWI 1gm 0 GM/0 ML SYR ONE (11:25)
[2019-04-27] MEDS ORDERED: PROPOFOL 200 MG/20 ML VIAL IV ONE (11:59)
[2019-04-27] MEDS ORDERED: LIDOCAINE 2% MPF 5 ML VIAL ONE (12:00)
[2019-04-27] MEDS ORDERED: FENTANYL CITR 100 MCG/2 ML ONE (12:00)
[2019-04-27] MEDS ORDERED: KETOROLAC 30 MG/ML INJ ONE (12:00)
[2019-04-27] MEDS: CLINDAMYCIN 900MG/D5W 900 MG/50 ML IVPB IV ONE ×2 (12:45→12:55)
[2019-04-27] MEDS ORDERED: GLYCOPYRROLATE 0.2 MG/ML SYR ONE (13:07)
[2019-04-27] MEDS ORDERED: NS 0.9% VIAL 10 ML ONE (13:40)
[2019-04-27] MEDS ORDERED: ONDANSETRON 4 MG/2 ML VIAL ONE (13:40)
[2019-04-27] MEDS ORDERED: EPHEDRINE SULF 50 MG/ML VIAL ONE (13:40)
[2019-04-27 16:06] VITALS: BP 128/50; TEMP 97.7; O2SAT 97
--- NOTE | 2019-04-28 11:44 | OP ---
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 Procedure Performed: Excision and flap closure of the right forearm 6 cm squamous cell carcinoma, ex cision and skin graft closure right index finger 2.5 cm squamous cell carcinoma, and splint to the in dex finger. Anesthesia: General. Description Of Procedure: After satisfactory induction of general anesthesia, right arm was prepped with Betadine scrub and Betadine paint, and dry sterile drapes applied in the usual manner. The arm was elevated. Tourniquet was inflated to 250 mmHg. Hand placed on OR table. Elliptical incision wa s oriented longitudinal over the forearm dorsal surface excising the lesions. Sutures were placed pr oximally. A transverse incision was placed over the DIP region of the right index finger. Sutures w ere placed approximately. Frozen section revealed keratoacanthoma and squamous cell carcinoma ____ clear. Distal extension was made over the proximal forearm wound. Over this forearm wound, ski n graft was harvested. That skin was sewn into the recipient site at the index finger sewn with 4-0 Prolene simple sutures. The aforementioned was closed in layers after the flaps were advanced, layer ed closure consisted of 4-0 PDS and deep dermis with 4-0 Prolene, and simple sutures to the skin. Dr berg with Xeroform, 2-inch Anand, Kerlix, and then a splint holding the PIP and DIP in extension of the index finger. The patient tolerated the procedure well, returned to recovery. MIMI/ONESIMO Voice ID: [id number] Report ID: [id number]
== END 2019-04-27 16:45 | disposition home or self-care (01) ==
LOC: OR 10:44
PROVIDERS: ATTEND Specialist
PROC: 0HRFX73 Replacement of Right Hand Skin with Autologous Tissue Substitute, Full Thickness, External Approach (ICD-10-PCS; 2019-04-27)
PROC: 0HBDXZZ Excision of Right Lower Arm Skin, External Approach (ICD-10-PCS; principal; 2019-04-27 12:00)
DX: C44.622 Squamous cell carcinoma of skin of right upper limb, including shoulder (principal); I10 Essential (primary) hypertension; Z88.0 Allergy status to penicillin; Z86.73 Personal history of transient ischemic attack (TIA), and cerebral infarction without residual deficits; Z95.1 Presence of aortocoronary bypass graft; Z95.2 Presence of prosthetic heart valve
CPT/HCPCS: 93005; 85025; 80048; 36415; 85610; 88331 ×2; 88332 ×2; 88305; 85730; 71046; 14020; 11623; 15240; J2704; J3010; J2405; J0690

== ENCOUNTER 2019-04-30 09:57 | Emergency (ER) | payer OTHER ==
--- OUTSIDE RECORDS SUMMARY | 2019-04-30 10:02 | XMS REPORT | Clinical Summary ---
:[address] [facility] Address [address] [place] [address] Care Team Providers Name Role Phone Pcp, [...] 05/19/2018 Surgery Cristobal Moreno [facility]AV[facility] / [facility] - MD Nelson IP PROC ONLY 05/19/2018 Anesthesia Event Johnson Peralta MD 05/19/2018 - Hospital Encounter Cardiology Cristobal Moreno Advanced age; 05/30/2018 MD Nelson Severe aortic stenosis 05/19/2018 Orders Only General Internal Medicine after 04/29/2018 Family History Medical History Relation Name Comments [...] Not on file Implants Implanted Type Area Director Phone Device Shelf Model / Identifier Expiration Date Serial / Lot Valve Heart Payton 3 26mm [id number] - [id number] Valves PASTRANA [employer] [id number] / Implanted: Qty: 1 on 05/19/2018 by Cristobal Moreno MD [id number] / Procedures Procedure Name Priority Date/Time Associated [...] 394 ms QTC Calculation(Bazett) 454 ms P Allen 23 degrees R Allen 29 degrees T Allen 194 degrees Sinus rhythm with marked sinus [...] 388 ms QTC Calculation(Bazett) 450 ms P Allen 52 degrees R Allen 28 degrees T Allen 136 degrees Normal sinus rhythm with sinus [...] 376 ms QTC Calculation(Bazett) 444 ms P Allen 56 degrees R Allen 23 degrees T Allen 138 degrees Sinus rhythm with Premature atrial [...] 380 ms QTC Calculation(Bazett) 452 ms R Allen 188 degrees T Allen 33 degrees Normal sinus rhythm with sinus [...] TAVR (CV ANES) DEVANTE Special Needs SCOT [phone]/SHAWN after 04/29/2018 Results RHYTHM STRIP - SCAN (06/01/2018 8:10 AM CDT) Narrative Performed At POC-Glucose meter (05/30/2018 8:21 AM CDT)Only the most recent of32 resultswithin the time period is included. POC-Glucose Meter 112 (H)Comment: TESTED AT 70 - 110 mg/dL [facility] [address] [place] [address] Specimen Blood Performing Organization Address [facility] [place] [address] [phone] [place] Prothrombin time/INR (05/30/2018 4:31 AM CDT)Only the most recent of7 resultswithin the time period is included. Protime 22.3 (H) 11.7 - 14.7 seconds [facility] INR 2.0 <=5.9 [facility] Specimen Blood Narrative Performed At [facility] RECOMMENDED COUMADIN/WARFARIN INR THERAPY RANGES STANDARD DOSE: 2.0 - 3.0 Includes: PROPHYLAXIS for venous thrombosis, systemic embolization; TREATMENT for venous thrombosis and/or pulmonary embolus. HIGH RISK: Target INR is 2.5-3.5 for patients with mechanical heart valves. Performing Organization Address [facility] Phone Number [address] [address] [phone] [place] CBC (Hemogram only) (05/30/2018 4:31 AM CDT)Only the most recent of8 resultswithin the time period is included. WBC 10.0 3.5 - 10.5 K/L [facility] RBC 3.44 (L) 4.63 - 6.08 M/L [facility] Hemoglobin 9.6 (L) 13.7 - 17.5 GM/DL [facility] Hematocrit 30.8 (L) 40.1 - 51.0 % [facility] MCV 89.5 79.0 - 92.2 fL [facility] MCH 27.9 25.7 - 32.2 pg [facility] MCHC 31.2 (L) 32.3 - 36.5 GM/DL [facility] RDW 16.1 (H) 11.6 - 14.4 % [facility] Platelets 169 150 - 450 K/CU MM [facility] MPV 11.5 9.4 - 12.4 fL [facility] nRBC 0 0 - 0 /100 WBC [facility] Specimen Blood Performing Organization Address City/State/Zipcode Phone Number [facility] [address] [place] [address] [phone] CENTER Basic Metabolic Panel (05/30/2018 4:31 AM CDT)Only the most recent of11 resultswithin the time period is included. Sodium 136 136 - 145 meq/L [facility] Potassium 3.7 3.5 - 5.1 meq/L [facility] Chloride 101 98 - 107 meq/L [facility] CO2 26 22 - 29 meq/L [facility] BUN 28 (H) 7 - 21 mg/dL [facility] Creatinine 1.31 (H) 0.57 - 1.25 mg/dL [facility] Glucose 74 70 - 105 mg/dL [facility] Calcium 8.9 8.4 - 10.2 mg/dL [facility] EGFR 52Comment: ESTIMATED GFR IS mL/min/1.73 sq m [facility] NOT ACCURATE [facility] CLEARANCE IN PREDICTING GLOMERULAR FILTRATION RATE. ESTIMATED GFR IS NOT APPLICABLE FOR DIALYSIS PATIENTS. Specimen Blood Performing Organization Address City/State/Zipcode Phone Number [facility] [address] [place] [address] CENTER Magnesium (05/28/2018 5:53 AM CDT)Only the most recent of9 resultswithin the time period is included. Magnesium 2.3 1.6 - 2.6 mg/dL [facility] Specimen Blood Performing Organization Address City/State/Zipcode Phone Number [facility] [address] [place] [address] CENTER Transfuse Leuko-Red RBC (05/26/2018 1:11 PM CDT)Only the most recent of2 resultswithin the time period is included.CBC with platelet count + automated diff (05/26/2018 6:27 AM CDT)Only the most recent of2 resultswithin the time period is included. WBC 12.2 (H) 3.5 - 10.5 K/L [facility] RBC 3.70 (L) 4.63 - 6.08 M/L [facility] Hemoglobin 10.6 (L) 13.7 - 17.5 GM/DL [facility] Hematocrit 33.2 (L) 40.1 - 51.0 % [facility] MCV 89.7 79.0 - 92.2 fL [facility] MCH 28.6 25.7 - 32.2 pg [facility] MCHC 31.9 (L) 32.3 - 36.5 GM/DL [facility] RDW 15.9 (H) 11.6 - 14.4 % [facility] Platelets 137 (L) 150 - 450 K/CU MM [facility] MPV 11.1 9.4 - 12.4 fL [facility] nRBC 0 0 - 0 /100 WBC [facility] % Neutros 54 % [facility] % Lymphs 33 % [facility] % Monos 8 % [facility] % Eos 3 % [facility] % Baso 0 % [facility] # Neutros 6.59 (H) 1.78 - 5.38 K/L [facility] # Lymphs 3.96 (H) 1.32 - 3.57 K/L [facility] # Monos 1.00 (H) 0.30 - 0.82 K/L [facility] # Eos 0.30 0.04 - 0.54 K/L [facility] # Baso 0.05 0.01 - 0.08 K/L [facility] Immature Granulocytes-Relative 2 (H) 0 - 1 % [facility] Specimen Blood Performing Organization Address City/State/Zipcode Phone Number [facility] [address] [place] [address] [phone] brain without IV contrast (05/25/2018 7:04 PM CDT)Only the most recent of2 resultswithin the time period is included. Specimen Narrative Performed At FINAL REPORT [facility] CT head without contrast 05/25/2018 7:14 [...] MD Report Verified Date/Time:05/25/2018 19:17:21 Reading Location: [facility] Radiology Reading Room Procedure Note Interface, [...] Report Verified Date/Time: 05/25/2018 19:17:21 Reading Location: [facility] Radiology Reading Room Performing Organization Address City/State/Zipcode Phone Number [facility] TRANSFUSION SERVICE REPORT - SCAN (05/25/2018 6:00 PM CDT)Only the most recent of3 resultswithin the time period is included. Narrative Performed At Prepare Leuko-Red RBC (05/24/2018 11:54 PM CDT) CROSSMATCH COMPATIBLE [place]AF[place] TX Unit ABO O Pos [facility]ET[facility] TX UNIT NUMBER [id number] [place] Status TRANSFUSED [facility] [place] Blood Bank Product RED BLOOD CELLS [place] [place] PRODUCT CODE [id number] [place] Specimen Other Performing Organization Address City/[facility] Phone Number SAFET[place] [place] Type and screen, automated (05/23/2018 11:30 AM CDT) ABO/RH AUTOMATED (BEAKER) O POSITIVE [facility] Ab Scrn NEGATIVE [facility] Specimen Blood Performing Organization Address [facility] Cent[facility]ode Phone Number [address] [address] [phone] aPTT (05/23/2018 6:15 AM CDT)Only the most recent of6 resultswithin the time period is included. PTT 94.3 (H) 22.5 - 36.0 seconds [facility] Specimen Blood Performing Organization Address [facility] Phone Number [address] [address] CENTER Iron, TIBC, % sat. (without ferritin) (05/23/2018 5:25 AM CDT) Iron 63 40 - 160 ug/dL [facility] TIBC 224 (L) 250 - 450 ug/dL [facility] Iron % Saturation 28 20 - 55 % [facility] Specimen Blood Performing Organization Address City/[facility] Cent[facility]ode Phone Number [address] [address] CENTER Ferritin (05/23/2018 5:25 AM CDT) Ferritin 435 (H) 5 - 275 ng/mL [facility] Specimen Blood Performing Organization Address [facility] Cent[facility]ode Phone Number [address] [address] CENTER ECG 12 lead (05/22/2018 1:56 PM CDT)Only the most recent of4 resultswithin the time period is included. Specimen Narrative Performed At Ventricular Rate 80 BPM GE MUSE Atrial Rate 80 BPM P-R Interval 164 ms QRS Duration 100 ms Q-T Interval 394 ms QTC Calculation(Bazett) 454 ms P Allen 23 degrees R Allen 29 degrees T Allen 194 degrees Sinus rhythm with marked sinus [...] 394 ms QTC Calculation(Bazett) 454 ms P Allen 23 degrees R Allen 29 degrees T Allen 194 degrees Sinus rhythm with marked sinus arrhythmia ST & T wave abnormality, consider inferolateral ischemia Abnormal ECG When compared with ECG of 20-MAY-2018 06:03, ST no longer depressed in Lateral leads T wave inversion now evident in Inferior leads T wave inversion now evident in Anterior leads Confirmed by MD TERESA, SHANE ([id number]) on 05/22/2018 2:20:53 PM Performing Organization Address City/State/[facility]ode Phone Number GE MUSE PT/aPTT (05/22/2018 2:19 AM CDT)Only the most recent of3 resultswithin the time period is included. Protime 15.0 (H) 11.7 - 14.7 seconds [facility] INR 1.2 <=5.9 [facility] PTT 179.7 (HH) 22.5 - 36.0 seconds [facility] Specimen Blood Narrative Performed At [facility] RECOMMENDED COUMADIN/WARFARIN INR THERAPY RANGES STANDARD DOSE: 2.0 - 3.0 Includes: PROPHYLAXIS for venous thrombosis, systemic embolization; TREATMENT for venous thrombosis and/or pulmonary embolus. HIGH RISK: Target INR is 2.5-3.5 for patients with mechanical heart valves. Performing Organization Address City/[facility]/Zipcode Phone Number [address] [address] CENTER Calcium, Ionized (05/22/2018 2:19 AM CDT)Only the most recent of2 resultswithin the time period is included. Calcium, Ion 1.15 1.12 - 1.27 mmol/L [facility] pH, Blood 7.40 [facility] Specimen Blood Performing Organization Address [facility] Cent[facility]ode Phone Number [address] [address] CENTER Phosphorus (05/22/2018 2:19 AM CDT)Only the most recent of3 resultswithin the time period is included. Phosphorus 3.6 2.3 - 4.7 mg/dL [facility] Specimen Blood Performing Organization Address City/[facility] Phone Number [address] [address] CENTER Vancomycin level, random (05/22/2018 2:19 AM CDT) Vancomycin Rm 24.4 ug/mL [facility] Specimen Blood Narrative Performed At [facility] Reference Range: No Normals Performing Organization Address [facility] Phone Number [address] [address] [phone] CENTER MR brain without IV contrast (05/21/2018 11:53 AM CDT) Specimen Narrative Performed At FINAL REPORT [facility] MRI Brain without contrast Clinical History: Stroke [...] Report Verified Date/Time:05/21/2018 11:58:08 Reading Location: [address] Neuro Reading Room Procedure Note Interface, [...] Verified Date/Time: 05/21/2018 11:58:08 Reading Location: [address] Neuro Reading Room Performing Organization Address City/State/Zipcode Phone Number RIS MRA neck without IV contrast (05/21/2018 11:53 AM CDT) Specimen Narrative Performed At FINAL REPORT [facility] MRA Head and Neck CLINICAL HISTORY: Stroke TECHNIQUE: MRA of the head utilizing 3-D vdjn-eu-rwjqse technique, with 3-D reconstructions. MRA of the neck utilizing 2-D and 3-D srzm-hl-uwqkdo technique, with 3-D reconstructions. COMPARISON: None FINDINGS: There is no evidence for a chilkoot of Gonzalez proximal branch vessel occlusion. There [...] vertebral arteries. IMPRESSION: No evidence for a chilkoot of Gonzalez proximal branch vessel occlusion. No hemodynamically significant stenosis in the internal carotid arteries. 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 Signed: Jaycob Alvarado MD Report Verified Date/Time:05/21/2018 12:04:26 Reading Location: [address] Neuro Reading Room Procedure Note Interface, External Ris In - 05/21/2018 12:06 PM CDT FINAL REPORT MRA Head and Neck CLINICAL HISTORY: Stroke TECHNIQUE: MRA of the head utilizing 3-D yoia-be-lkvkfq technique, with 3-D reconstructions. MRA of the neck utilizing 2-D and 3-D lwef-fo-phakfq technique, with 3-D reconstructions. COMPARISON: None FINDINGS: There is no evidence for a chilkoot of Gonzaelz proximal branch vessel occlusion. There is no [...] vertebral arteries. IMPRESSION: No evidence for a chilkoot of Gonzalez proximal branch vessel occlusion. No hemodynamically significant stenosis in the internal carotid arteries. 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 Signed: Jaycob Alvarado MD Report Verified Date/Time: 05/21/2018 12:04:26 Reading Location: [address] Neuro Reading Room Performing Organization Address City/State/Zipcode Phone Number [facility] MRA head without IV contrast (05/21/2018 11:53 AM CDT) Specimen Narrative Performed At FINAL REPORT [facility] MRA Head and Neck CLINICAL HISTORY: Stroke TECHNIQUE: MRA of the head utilizing 3-D bhds-ty-yfzvre technique, with 3-D reconstructions. MRA of the neck utilizing 2-D and 3-D xbfv-op-xykowf technique, with 3-D reconstructions. COMPARISON: None FINDINGS: There is no evidence for a chilkoot of Gonzalez proximal branch vessel occlusion. There [...] vertebral arteries. IMPRESSION: No evidence for a chilkoot of Gonzalez proximal branch vessel occlusion. No hemodynamically significant stenosis in the internal carotid arteries. 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 Signed: Jaycob Alvarado MD Report Verified Date/Time:05/21/2018 12:04:26 Reading Location: [address] Neuro Reading Room Procedure Note Interface, External Ris In - 05/21/2018 12:06 PM CDT FINAL REPORT MRA Head and Neck CLINICAL HISTORY: Stroke TECHNIQUE: MRA of the head utilizing 3-D suoa-vi-tchaal technique, with 3-D reconstructions. MRA of the neck utilizing 2-D and 3-D qyxw-nk-hqbala technique, with 3-D reconstructions. COMPARISON: None FINDINGS: There is no evidence for a chilkoot of Gonzalez proximal branch vessel occlusion. There [...] vertebral arteries. IMPRESSION: No evidence for a chilkoot of Gonzalez proximal branch vessel occlusion. No hemodynamically significant stenosis in the internal carotid arteries. 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 Signed: Jaycob Alvarado MD Report Verified Date/Time: 05/21/2018 12:04:26 Reading Location: [facility] C013V Neuro Reading Room Performing Organization Address City/State/Zipcode Phone Number [facility] XR chest 1 view portable / bedside (05/21/2018 7:27 AM CDT)Only the most recent of2 resultswithin the time period is included. Specimen Narrative Performed At FINAL REPORT [facility] Portable chest CLINICAL HISTORY: Hypoxemia. COMPARISON STUDY: May 19, 2018. FINDINGS: The cardiac silhouette is unremarkable. The patient is status post sternotomy and valve replacement. There are increased interstitial markings with atelectatic changes in the lung bases and costophrenic angle blunting. No pneumothorax is noted. Degenerative changes are seen. IMPRESSION: No significant change. Signed: Addy Zapata MD Report Verified Date/Time:05/21/2018 10:54:40 Reading Location: [facility] C013X Ortho Consult Reading Room Procedure Note [...] Report Verified Date/Time: 05/21/2018 10:54:40 Reading Location: [facility] C013X Ortho Consult Reading Room Performing Organization Address City/State/Zipcode Phone Number RIS TSH/Free T4 If Indicated (05/21/2018 2:59 AM CDT) TSH 0.77 0.35 - 4.94 uIU/mL [facility] Specimen Blood Performing Organization Address City/[facility]/Zipcode Phone Number [address] [address] CENTER Hemoglobin A1c (05/21/2018 2:59 AM CDT) Hemoglobin A1C 8.1 (H) 4.3 - 6.1 % [facility] Specimen Blood Performing Organization Address City/[facility]/Zipcode Phone Number [address] [address] CENTER Vitamin B12 (05/21/2018 2:59 AM CDT) Vitamin B12 692 213 - 816 pg/mL [facility] Specimen Blood Performing Organization Address City/[facility]/Zipcode Phone Number [address] [address] CENTER Lipid panel (05/21/2018 2:59 AM CDT) Triglycerides 348 mg/dL [facility] Cholesterol 208 mg/dL [facility] HDL 26 mg/dL [facility] LDL Calculated 112 mg/dL [facility] Specimen Blood Narrative Performed At [facility] Triglyceride Reference Range: Low Risk <150 [id number] High Risk 200-499 Very High Risk>=500 Cholesterol Reference Range: Low Risk <200 [id number] High Risk>240 HDL Cholesterol Reference Range: Low Risk >=60 High Risk <40 LDL Cholesterol Reference Range: Optimal<100 Near [id number] [id number] Uliz444-513 Very High >=190 Performing Organization Address City/State/Zipcode Phone Number [facility] [address] [place] [address] [phone] CENTER ECHOCARDIOGRAM REPORT - SCAN (05/20/2018 6:50 PM CDT) Narrative Performed At CARDIAC CATH REPORT - SCAN (05/20/2018 3:41 PM CDT) Narrative Performed At EEG AWAKE AND DROWSY (05/20/2018 2:38 PM CDT) Specimen Narrative Performed At Date(s) of EE05/20/2018 GE RIS DATE OF REPORT: 05/20/2018 ACC: [id number] EEG Number: [id number] Test Location: Inpatient ICU Start time: 14:17 Stop time: 14:38 ICD-10: R56.9 CPT Code: 77305 HISTORY: 87 y.o. RHM w/ severe who [...] PGY5 Linette Choe MD Attending Neurophysiologist [facility] Procedure Note Interface, External Ris In - 05/20/2018 3:54 PM CDT Date(s) of EE05/20/2018 DATE OF REPORT: 05/20/2018 ACC: [id number] EEG Number: [id number] Test Location: Inpatient ICU Start time: 14:17 Stop time: 14:38 ICD-10: R56.9 CPT Code: 70722 HISTORY: 87 y.o. RHM w/ severe who [...] Fellow, PGY5 Linette Choe MD Attending Neurophysiologist [facility] [place] Performing Organization Address City/[facility]/Zipcode Phone Number GE RIS XR abdomen / KUB 1 view (05/20/2018 11:22 AM CDT) Specimen Narrative Performed At FINAL REPORT [facility] Abdomen one view INDICATION: Nasogastric tube insertion COMPARISON: None available IMPRESSION: NG tube extends to the gastric body. The imaged bowel gas pattern is nonspecific. There are degenerative spine changes and incidental vascular calcifications. The imaged chest is similar to 05/19/2018. Signed: Virgil Kraft MD Report Verified Date/Time:05/20/2018 11:33:02 Reading Location: [facility] Radiology Reading Room Procedure Note Interface, [...] Report Verified Date/Time: 05/20/2018 11:33:02 Reading Location: [facility] Radiology Reading Room Performing Organization Address [facility] Phone Number GE RIS Troponin I (05/20/2018 11:05 AM CDT)Only the most recent of2 resultswithin the time period is included. Troponin I 1.13 (HH) 0.00 - 0.03 ng/mL [facility] Specimen Blood Narrative Performed At [facility] Troponin I (TnI) levels must be interpreted [...] disease, and persistent tachyarrhythmia. Performing Organization Address City/[facility] Cent[facility]ode Phone Number [address] [address] [place] Lactic acid, venous, whole blood (05/20/2018 11:05 AM CDT) Lactate, Venous 2.1 0.5 - 2.2 mmol/L [facility] Specimen Blood Narrative Performed At [facility] Effective 04/02/2016: Units/Reference Range Change New: 0.5-2.2 mmol/LPrevious: 5-20 mg/dL Performing Organization Address [facility] Phone Number [address] [address] [place] Blood gas, venous (05/20/2018 11:05 AM CDT) pH, Phil 7.40 7.32 - 7.42 [facility] pCO2, Phil 45 41 - 51 mmHg [facility] pO2, Phil 26 25 - 40 mmHg [facility] O2 Sat, Phil 46.3 40.0 - 70.0 % [facility] HCO3, Phil 27 21 - 29 mmol/L [facility] Base Excess, Phil 1.8 -2.0 - 3.0 mmol/L [facility] Patient Temperature 36.9 C [facility] FIO2 36.0 % [facility] Specimen Blood Performing Organization Address City/[facility] Centercode Phone Number [facility] [address] [place] [address] [place] Creatine Kinase (CK), Total and MB (05/20/2018 11:05 AM CDT)Only the most recent of2 resultswithin the time period is included. Total CK 138 29 - 200 U/L [facility] CK-MB 4.2 0.0 - 6.6 ng/mL [facility] MB Relative Index 3.0 % [facility] Specimen Blood Narrative Performed At CK-MB Reference Range: [facility] <6.7Normal 6.7-10.0Borderline >10.0 Abnormal Performing Organization Address City/State/Zipcode Phone Number [facility] [address] [place], [place] [phone] [place] Comprehensive metabolic panel (05/20/2018 11:05 AM CDT) Protein, Total 5.7 (L) 6.0 - 8.3 gm/dL [facility] Albumin 3.4 (L) 3.5 - 5.0 g/dL [facility] Alkaline Phosphatase 42 40 - 150 U/L [facility] Total Bilirubin 0.8 0.2 - 1.2 mg/dL [facility] Sodium 139 136 - 145 meq/L [facility] Potassium 4.2 3.5 - 5.1 meq/L [facility] Chloride 100 98 - 107 meq/L [facility] CO2 23 22 - 29 meq/L [facility] BUN 38 (H) 7 - 21 mg/dL [facility] Creatinine 2.17 (H) 0.57 - 1.25 mg/dL [facility] Glucose 129 (H) 70 - 105 mg/dL [facility] Calcium 9.0 8.4 - 10.2 mg/dL [facility] AST 27 5 - 34 U/L [facility] ALT 14 6 - 55 U/L [facility] EGFR 29Comment: ESTIMATED GFR mL/min/1.[address] [facility] IS NOT ACCURATE [facility] CREATININE CLEARANCE IN PREDICTING GLOMERULAR FILTRATION RATE. ESTIMATED GFR IS NOT APPLICABLE FOR DIALYSIS PATIENTS. Specimen Blood Performing Organization Address City/State/Zipcode Phone Number [facility] [address] [place] [address] [phone] CENTER ECHOCARDIOGRAM REPORT - SCAN (05/20/2018 9:50 AM CDT) Narrative Performed At 2D Echo W/Doppler(CW/PW/Color) (05/20/2018 9:24 AM CDT) Ejection Fraction [facility] Specimen Narrative Performed At Transthoracic Echocardiography Report (TTE) [facility] Demographics Patient Name Catherine SEXTON of Study 05/20/2018 RIOS [id number] GenderMale Visit Number [id number] Room Number 8A11 Number Date of Birth1930Referring Physician Cristobal Moreno MD 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 [facility] AnalystAlex Joaquin Bejarano Physician Procedure Type [...] Study 05/20/2018 RIOS Gender Male Visit Number [id number] Race Room Number 8A11 Number Date of 1930 Referring Physician Cristobal Moreno MD 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 Sean Nuñez Interpreting Andrews Bejarano, [...] LVOT VTI: 22.17 cm Performing Organization Address City/[facility]/Zipcode Phone Number [facility] Urinalysis w/Microscopic (05/19/2018 11:32 PM CDT) Color, UA Yellow [facility] Clarity, UA Clear [facility] Specific [place], UA 1.017 1.001 - 1.035 [facility] pH, UA 5.0 5.0 - 8.0 [facility] Protein, UA Negative Negative [facility] Glucose, UA Negative Negative [facility] Ketones, UA Negative Negative [facility] Bilirubin, UA Negative Negative [facility] Blood, UA Small (A) Negative [facility] Nitrite, UA Negative Negative [facility] Leukocytes, UA Negative Negative [facility] Urobilinogen, UA 0.2 0.2 - 1.0 mg/dL [facility] RBC, UA 12 /HPF [facility] WBC, UA 1 /HPF [facility] Mucus Rare [facility] Amorphous Crystals Occasional [facility] Specimen Source Urine, Corral [facility] Specimen Urine Performing Organization Address City/[facility]/Zipcode Phone Number [facility] [address] [place] [address] CENTER Urine culture (05/19/2018 11:31 PM CDT) Result No growth [facility] Specimen Urine Performing Organization Address [facility] Cent[facility] Phone Number [address] [phone] [place] Blood culture (05/19/2018 11:23 PM CDT)Only the most recent of2 resultswithin the time period is included. Result No growth in 5 days [facility] Specimen Blood Performing Organization Address [facility] Cent[facility]ode Phone Number [address] [phone] [place] POC-Lactic Acid, Arterial (05/19/2018 9:17 PM CDT) POC-Lactic Acid, 1.5 (H)Comment: 0.4 - 1.3 mmol/L [facility] Arterial TESTED AT [address] [address] Specimen Blood Performing Organization Address [facility] Phone Number [address] [address] [place] POCT-HEMATOCRIT (05/19/2018 9:07 PM CDT) POC-Hematocrit 32 (L)Comment: TESTED AT 40 - 50 % [address] [address] Specimen Blood Performing Organization Address [facility] Phone Number [address] [phone] [place] POCT-HEMOGLOBIN (05/19/2018 9:07 PM CDT) POC-Hemoglobin 10.9 (L)Comment: TESTED AT 13.0 - 16.8 g/dL [address] [address]UBPLTU AT [address] [address] Specimen Blood Performing Organization Address [facility] Centercode Phone Number [address] [address] [phone] [place] POCT-GLUCOSE (05/19/2018 9:07 PM CDT) POC-Glucose 152 (H)Comment: TESTED AT 70 - 110 mg/dL [address] [place] [address] Specimen Blood Performing Organization Address [facility] Phone Number [address] [address] [place] POC-Sodium (05/19/2018 9:07 PM CDT) POC-Sodium 137Comment: TESTED AT [facility] 135 - 148 meq/L [address] [address] Specimen Blood Performing Organization Address [facility] Phone Number [address] [address] [place] POC-Potassium (05/19/2018 9:07 PM CDT) POC-Potassium 3.6Comment: TESTED AT [facility] 3.6 - 5.5 meq/L [address] [address] Specimen Blood Performing Organization Address [facility] Phone Number [address] [address] [place] POC-Calcium ionized (05/19/2018 9:07 PM CDT) POC-Calcium Ionized 1.19Comment: TESTED AT 1.12 - 1.27 mmol/L [address] [address] Specimen Blood Performing Organization Address [facility] Phone Number [address] [address] [phone] [place] POC-Blood gases, arterial (05/19/2018 9:07 PM CDT) Temp. Celsius-POC 37.1 [facility] FIO2-POC 29Comment: TESTED AT [address] [address] pH, Arterial-POC 7.468 (H) 7.350 - 7.450 [facility] PCO2, Arterial-POC 34.4 (L) 35.0 - 45.0 mm Hg [facility] PO2, Arterial-POC 63.0 (L) 80.0 - 90.0 mm Hg [facility] SO2, Arterial-POC 93.0 (L) 96.0 - 97.0 % [facility] HCO3, Arterilal-POC 24.9 21.0 - 29.0 meq/L [facility] BE, Arterial-POC 1.0 -2.0 - 3.0 meq/L [facility] Specimen Blood Performing Organization Address City/State/Zipcode Phone Number [facility] [address] [place] [address] [phone] brain/stroke test design (05/19/2018 8:42 PM CDT) Specimen Narrative Performed At FINAL REPORT [facility] [employer] [facility] head without contrast 05/19/2018 8:43 PM [...] Report Verified Date/Time: 05/19/2018 20:46:09 Reading Location: [facility] Radiology Reading Room Performing Organization Address City/State/[facility] Centercode Phone Number [facility] Prepare RBC (05/19/2018 10:47 AM CDT) CROSSMATCH COMPATIBLE SAFETRACE TX Unit ABO O Pos SAFETRACE TX UNIT NUMBER [id number] SAFETRACE TX Status RETURNED FROM ISSUE SAFETRACE TX Blood Bank Product RED BLOOD CELLS SAFETRACE TX PRODUCT CODE [id number] SAFETRACE TX CROSSMATCH COMPATIBLE SAFETRACE TX Unit ABO O Pos SAFETRACE TX UNIT NUMBER [id number] SAFETRACE TX Status RETURNED FROM ISSUE SAFETRACE TX Blood Bank Product RED BLOOD CELLS SAFETRACE TX PRODUCT CODE [id number] SAFETRACE TX CROSSMATCH COMPATIBLE SAFETRACE TX Unit ABO O Pos SAFETRACE TX UNIT NUMBER [id number] SAFETRACE TX Status RETURNED FROM ISSUE SAFETRACE TX Blood Bank Product RED BLOOD CELLS SAFETRACE TX PRODUCT CODE [id number] SAFETRACE TX CROSSMATCH COMPATIBLE SAFETRACE TX Unit ABO O Pos SAFETRACE TX UNIT NUMBER [id number] SAFETRACE TX Status RETURNED FROM ISSUE SAFETRACE TX Blood Bank Product RED BLOOD CELLS SAFETRACE TX PRODUCT CODE [id number] SAFETRACE TX Performing Organization Address [facility] Centercode Phone Number SAFETRACE TX POC ACTIVATED CLOTTING TIME (05/19/2018 8:59 AM CDT) Activated Clotting Time 329Comment: TESTED AT [address] [address] Specimen Blood Performing Organization Address [facility] Phone Number [address] [address] CENTER 2D Echo W/Doppler(CW/PW/Color) (05/19/2018 7:51 AM CDT) Ejection Fraction [facility] Specimen Narrative Performed At Transthoracic Echocardiography Report (TTE) [facility] Demographics Patient Name Catherine SEXTON of Study 05/19/2018 RIOS [id number] GenderMale Visit Number [id number] Room Number 8A11 Number Date of Birth1930Referring Physician Cristobal Moreno MD 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 Afua Coombs [facility] InterpretingStep micaela Rucker, Physician MD Micheal [...] Study 05/19/2018 RIOS Gender Male Visit Number [id number] Race Room Number 8A11 Number Date of 1930 Referring Physician Cristobal Moreno MD 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 Afua Coombs [facility] Interpreting Lisa Rucker, Physician MD Micheal [...] Number [facility] after 04/29/2018 Insurance Payer Benefit Plan / Group Subscriber ID Type Phone Address MEDICARE MEDICARE A B xxxxxxxxxx Medicare AETNA - MGD CARE AETNA INDEMNITY NON CONTR xxxxxxxxxx Comm [address] ([address]) [address] [place] [address] Advance Directives For more information, please contact:[address] [phone] Code Status Date Activated Date Inactivated Comments Full Code 05/19/2018 5:27 AM 05/30/2018 5:08 PM This code status was determined by: Patient
--- OUTSIDE RECORDS SUMMARY | 2019-04-30 10:04 | XMS REPORT ---
:1930 Author Organization [facility] Address [address] [place] [address] Care Team Providers Name Role Phone TONIE [...] (BEAKER) (test 112 mg/dL 70-110 TESTED AT [address] enge=[id number]) [facility] [address] POCT-GLUCOSE [id number] 08:17:00 Test Item Value Reference Range Comments POC-GLUCOSE METER (BEAKER) 98 mg/dL 70-110 TESTED AT [address] (test czog=2097) [facility] [address] BASIC METABOLIC [id number] 06:16:00 Test Item Value Reference Range Comments SODIUM (BEAKER) (test 136 meq/L 136-145 cbze=540) POTASSIUM (BEAKER) (test 3.7 meq/L 3.5-5.1 eujo=481) CHLORIDE (BEAKER) (test 101 meq/L 98-107 xfvp=746) CO2 (BEAKER) (test 26 meq/L 22-29 vxne=191) BLOOD UREA NITROGEN 28 mg/dL 7-21 (BEAKER) (test xkft=313) CREATININE (BEAKER) (test 1.31 mg/dL 0.57-1.25 dbsx=640) GLUCOSE RANDOM (BEAKER) 74 mg/dL 70-105 (test pyvm=059) CALCIUM (BEAKER) (test 8.9 mg/dL 8.4-10.2 bwil=416) EGFR (BEAKER) (test 52 mL/min/1.73 sq m ESTIMATED GFR IS NOT hchm=7634) ACCURATE CREATININE CLEARANCE IN PREDICTING GLOMERULAR FILTRATION RATE. ESTIMATED GFR IS NOT APPLICABLE FOR DIALYSIS PATIENTS. PROTHROMBIN TIME/[id number] 05:42:00 Test Item Value Reference Range Comments PROTIME (BEAKER) (test qhiu=975) 22.3 seconds 11.7-14.7 INR (BEAKER) (test mtcm=330) 2.0 <=5.9 RECOMMENDED COUMADIN/WARFARIN INR THERAPY RANGESSTANDARD DOSE: 2.0 - 3.0 Includes: PROPHYLAXIS forvenous thrombosis, systemic embolization; TREATMENT for venous thrombosis and/or pulmonary embolus.HIGH RISK: Target INR is 2.5-3.5 for patients with mechanical heart valves.CBC (HEMOGRAM ONLY)2018-05-30 05:34:00 Test Item Value Reference Range Comments WHITE BLOOD CELL COUNT (BEAKER) (test kbuo=878) 10.0 K/ L 3.5-10.5 RED BLOOD CELL COUNT (BEAKER) (test cupa=450) 3.44 M/ L 4.63-6.08 HEMOGLOBIN (BEAKER) (test nvgt=523) 9.6 GM/DL 13.7-17.5 HEMATOCRIT (BEAKER) (test myqs=339) 30.8 % 40.1-51.0 MEAN CORPUSCULAR VOLUME (BEAKER) (test uxiw=751) 89.5 fL 79.0-92.2 MEAN CORPUSCULAR HEMOGLOBIN (BEAKER) (test 27.9 pg 25.7-32.2 vygf=024) MEAN CORPUSCULAR HEMOGLOBIN CONC (BEAKER) (test 31.2 GM/DL 32.3-36.5 ocou=004) RED CELL DISTRIBUTION WIDTH (BEAKER) (test 16.1 % 11.6-14.4 eaxj=912) PLATELET COUNT (BEAKER) (test zyjo=996) 169 K/CU MM 150-450 MEAN PLATELET VOLUME (BEAKER) (test mmzk=618) 11.5 fL 9.4-12.4 NUCLEATED RED BLOOD CELLS (BEAKER) (test 0 /100 WBC 0-0 vdmi=902) POCT-GLUCOSE [id number] 21:35:00 Test Item Value Reference Range Comments POC-GLUCOSE METER (BEAKER) 203 mg/dL 70-110 TESTED AT [address] (test ohef=4110) [facility] [address] POCT-GLUCOSE [id number] 16:47:00 Test Item Value Reference Range Comments POC-GLUCOSE METER (BEAKER) 177 mg/dL 70-110 TESTED AT [address] (test paes=5567) [facility] [address] POCT-GLUCOSE [id number] 12:17:00 Test Item Value Reference Range Comments POC-GLUCOSE METER (BEAKER) 139 mg/dL 70-110 TESTED AT [address] (test lqlv=0304) [place] [id number] POCT-GLUCOSE [id number] 08:38:00 Test Item Value Reference Range Comments POC-GLUCOSE METER (BEAKER) 83 mg/dL 70-110 TESTED AT [address] (test issn=9754) [place] [address] PROTHROMBIN [id number] 06:39:00 Test Item Value Reference Range Comments PROTIME (BEAKER) (test mzku=357) 23.6 seconds 11.7-14.7 INR (BEAKER) (test tztr=543) 2.1 <=5.9 RECOMMENDED COUMADIN/WARFARIN INR THERAPY RANGESSTANDARD DOSE: 2.0 - 3.0 Includes: PROPHYLAXIS forvenous thrombosis, systemic embolization; TREATMENT for venous thrombosis and/or pulmonary embolus.HIGH RISK: Target INR is 2.5-3.5 for patients with mechanical heart valves.POCT-GLUCOSE [id number] 21:31:00 Test Item Value Reference Range Comments POC-GLUCOSE METER (BEAKER) 187 mg/dL 70-110 TESTED AT [address] (test uyfd=2189) [facility] [address] POCT-GLUCOSE [id number] 11:55:00 Test Item Value Reference Range Comments POC-GLUCOSE METER (BEAKER) 250 mg/dL 70-110 TESTED AT [address] (test uhab=7144) [place] [id number] POCT-GLUCOSE [id number] 07:55:00 Test Item Value Reference Range Comments POC-GLUCOSE METER (BEAKER) 156 mg/dL 70-110 TESTED AT [address] (test kxsj=0736) [place] [id number] 07:33:00 Test Item Value Reference Range Comments MAGNESIUM (BEAKER) (test jbfs=287) 2.3 mg/dL 1.6-2.6 PROTHROMBIN [id number] 06:33:00 Test Item Value Reference Range Comments PROTIME (BEAKER) (test mgzc=877) 20.3 seconds 11.7-14.7 INR (BEAKER) (test zeou=275) 1.7 <=5.9 RECOMMENDED COUMADIN/WARFARIN INR THERAPY RANGESSTANDARD DOSE: 2.0 - 3.0 Includes: PROPHYLAXIS forvenous thrombosis, systemic embolization; TREATMENT for venous thrombosis and/or pulmonary embolus.HIGH RISK: Target INR is 2.5-3.5 for patients with mechanical heart valves.BASIC METABOLIC [id number] 21:18: 00 Test Item Value Reference Range Comments SODIUM (BEAKER) (test 137 meq/L 136-145 gzpr=336) POTASSIUM (BEAKER) (test 4.1 meq/L 3.5-5.1 czug=353) CHLORIDE (BEAKER) (test 102 meq/L 98-107 gsvl=533) CO2 (BEAKER) (test 26 meq/L 22-29 ltbp=543) BLOOD UREA NITROGEN 32 mg/dL 7-21 (BEAKER) (test rrnh=726) CREATININE (BEAKER) (test 1.30 mg/dL 0.57-1.25 chxw=542) GLUCOSE RANDOM (BEAKER) 95 mg/dL 70-105 (test gqms=623) CALCIUM (BEAKER) (test 9.1 mg/dL 8.4-10.2 dwvz=681) EGFR (BEAKER) (test 52 mL/min/1.73 sq m ESTIMATED GFR IS NOT uopg=3625) ACCURATE CREATININE CLEARANCE IN PREDICTING GLOMERULAR FILTRATION RATE. ESTIMATED GFR IS NOT APPLICABLE FOR DIALYSIS PATIENTS. POCT-GLUCOSE [id number] 21:16:00 Test Item Value Reference Range Comments POC-GLUCOSE METER (BEAKER) 94 mg/dL 70-[address] [facility] [address] [facility] (test jjie=5187) [facility] [address] CBC (HEMOGRAM ONLY)2018-05-27 21:04:00 Test Item Value Reference Range Comments WHITE BLOOD CELL COUNT (BEAKER) (test nsih=805) 11.1 K/ L 3.5-10.5 RED BLOOD CELL COUNT (BEAKER) (test doze=717) 3.63 M/ L 4.63-6.08 HEMOGLOBIN (BEAKER) (test kemv=687) 10.1 GM/DL 13.7-17.5 HEMATOCRIT (BEAKER) (test kncu=719) 32.6 % 40.1-51.0 MEAN CORPUSCULAR VOLUME (BEAKER) (test pbsi=569) 89.8 fL 79.0-92.2 MEAN CORPUSCULAR HEMOGLOBIN (BEAKER) (test 27.8 pg 25.7-32.2 ubdl=453) MEAN CORPUSCULAR HEMOGLOBIN CONC (BEAKER) (test 31.0 GM/DL 32.3-36.5 vylj=183) RED CELL DISTRIBUTION WIDTH (BEAKER) (test 15.9 % 11.6-14.4 tnez=366) PLATELET COUNT (BEAKER) (test zmmr=572) 171 K/CU MM 150-450 MEAN PLATELET VOLUME (BEAKER) (test bomm=628) 11.4 fL 9.4-12.4 NUCLEATED RED BLOOD CELLS (BEAKER) (test 0 /100 WBC 0-0 kfci=543) POCT-GLUCOSE [id number] 17:03:00 Test Item Value Reference Range Comments POC-GLUCOSE METER (BEAKER) 226 mg/dL 70-110 TESTED AT [address] (test upmy=3312) [place] [id number] POCT-GLUCOSE [id number] 11:53:00 Test Item Value Reference Range Comments POC-GLUCOSE METER (BEAKER) 154 mg/dL 70-110 TESTED AT [address] (test hyhp=9451) [place] [id number] POCT-GLUCOSE [id number] 07:58:00 Test Item Value Reference Range Comments POC-GLUCOSE METER (BEAKER) 78 mg/dL 70-110 TESTED AT [address] (test focb=1998) [place] [address] [id number] 06:27:00 Test Item Value Reference Range Comments MAGNESIUM (BEAKER) (test jdqk=918) 2.1 mg/dL 1.6-2.6 PROTHROMBIN TIME/[id number] 05:53:00 Test Item Value Reference Range Comments PROTIME (BEAKER) (test ygjn=715) 19.1 seconds 11.7-14.7 INR (BEAKER) (test wtzq=394) 1.6 <=5.9 RECOMMENDED COUMADIN/WARFARIN INR THERAPY RANGESSTANDARD DOSE: 2.0 - 3.0 Includes: PROPHYLAXIS forvenous thrombosis, systemic embolization; TREATMENT for venous thrombosis and/or pulmonary embolus.HIGH RISK: Target INR is 2.5-3.5 for patients with mechanical heart valves.POCT-GLUCOSE [id number] 21:34:00 Test Item Value Reference Range Comments POC-GLUCOSE METER (BEAKER) 221 mg/dL 70-110 TESTED AT [address] (test ejvf=0457) [place] [address] POCT-GLUCOSE [id number] 18:12:00 Test Item Value Reference Range Comments POC-GLUCOSE METER (BEAKER) 173 mg/dL 70-110 TESTED AT [address] (test kupj=6871) [place] [address] POCT-GLUCOSE [id number] 12:42:00 Test Item Value Reference Range Comments POC-GLUCOSE METER (BEAKER) 286 mg/dL 70-110 TESTED AT [address] (test esem=2753) [facility] [address] POCT-GLUCOSE [id number] 08:40:00 Test Item Value Reference Range Comments POC-GLUCOSE METER (BEAKER) 91 mg/dL 70-110 TESTED AT [address] (test tiwz=6184) [place] [address] [id number] 07:52:00 Test Item Value Reference Range Comments MAGNESIUM (BEAKER) (test hene=521) 2.2 mg/dL 1.6-2.6 PROTHROMBIN [id number] 07:30:00 Test Item Value Reference Range Comments PROTIME (BEAKER) (test xask=631) 15.1 seconds 11.7-14.7 INR (BEAKER) (test phvn=808) 1.2 <=5.9 RECOMMENDED COUMADIN/WARFARIN INR THERAPY RANGESSTANDARD DOSE: 2.0 - 3.0 Includes: PROPHYLAXIS forvenous thrombosis, systemic embolization; TREATMENT for venous thrombosis and/or pulmonary embolus.HIGH RISK: Target INR is 2.5-3.5 for patients with mechanical heart valves.CBC W/PLT COUNT & AUTO [id number] 07:24:00 Test Item Value Reference Range Comments WHITE BLOOD CELL COUNT (BEAKER) (test udpd=698) 12.2 K/ L 3.5-10.5 RED BLOOD CELL COUNT (BEAKER) (test giej=991) 3.70 M/ L 4.63-6.08 HEMOGLOBIN (BEAKER) (test onqf=777) 10.6 GM/DL 13.7-17.5 HEMATOCRIT (BEAKER) (test aqcd=013) 33.2 % 40.1-51.0 MEAN CORPUSCULAR VOLUME (BEAKER) (test erhr=582) 89.7 fL 79.0-92.2 MEAN CORPUSCULAR HEMOGLOBIN (BEAKER) (test 28.6 pg 25.7-32.2 uhby=445) MEAN CORPUSCULAR HEMOGLOBIN CONC (BEAKER) (test 31.9 GM/DL 32.3-36.5 gjaq=481) RED CELL DISTRIBUTION WIDTH (BEAKER) (test 15.9 % 11.6-14.4 jlkp=486) PLATELET COUNT (BEAKER) (test xvsr=759) 137 K/CU MM 150-450 MEAN PLATELET VOLUME (BEAKER) (test spfm=876) 11.1 fL 9.4-12.4 NUCLEATED RED BLOOD CELLS (BEAKER) (test 0 /100 WBC 0-0 ohmb=005) NEUTROPHILS RELATIVE PERCENT (BEAKER) (test 54 % yusx=312) LYMPHOCYTES RELATIVE PERCENT (BEAKER) (test 33 % oeck=160) MONOCYTES RELATIVE PERCENT (BEAKER) (test 8 % xkzp=770) EOSINOPHILS RELATIVE PERCENT (BEAKER) (test 3 % xjlt=284) BASOPHILS RELATIVE PERCENT (BEAKER) (test 0 % vkuf=162) NEUTROPHILS ABSOLUTE COUNT (BEAKER) (test 6.59 K/ L 1.78-5.38 iglw=248) LYMPHOCYTES ABSOLUTE COUNT (BEAKER) (test 3.96 K/ L 1.32-3.57 yqow=016) MONOCYTES ABSOLUTE COUNT (BEAKER) (test 1.00 K/ L 0.30-0.82 mrns=219) EOSINOPHILS ABSOLUTE COUNT (BEAKER) (test 0.30 K/ L 0.04-0.54 jelh=911) BASOPHILS ABSOLUTE COUNT (BEAKER) (test 0.05 K/ L 0.01-0.08 ncis=937) IMMATURE GRANULOCYTES-RELATIVE PERCENT (BEAKER) 2 % 0-1 (test imyp=9657) POCT-GLUCOSE [id number] 22:05:00 Test Item Value Reference Range Comments POC-GLUCOSE METER (BEAKER) 122 mg/dL 70-[address] [facility] [address] (test sxxx=5912) [facility] [address] BASIC METABOLIC [id number] 21:48:00 Test Item Value Reference Range Comments SODIUM (BEAKER) (test 135 meq/L 136-145 rnmd=363) POTASSIUM (BEAKER) (test 4.2 meq/L 3.5-5.1 taer=559) CHLORIDE (BEAKER) (test 101 meq/L 98-107 meus=575) CO2 (BEAKER) (test 25 meq/L 22-29 basr=476) BLOOD UREA NITROGEN 27 mg/dL 7-21 (BEAKER) (test obwy=242) CREATININE (BEAKER) (test 1.09 mg/dL 0.57-1.25 vbns=965) GLUCOSE RANDOM (BEAKER) 139 mg/dL 70-105 (test buwo=358) CALCIUM (BEAKER) (test 9.5 mg/dL 8.4-10.2 hqrb=459) EGFR (BEAKER) (test 64 mL/min/1.73 sq m ESTIMATED GFR IS NOT rjrh=7628) ACCURATE CREATININE CLEARANCE IN PREDICTING GLOMERULAR FILTRATION RATE. ESTIMATED GFR IS NOT APPLICABLE FOR DIALYSIS PATIENTS. CBC (HEMOGRAM ONLY)2018-05-25 21:37:00 Test Item Value Reference Range Comments WHITE BLOOD CELL COUNT (BEAKER) (test lcfn=458) 17.3 K/ L 3.5-10.5 RED BLOOD CELL COUNT (BEAKER) (test hiip=080) 3.84 M/ L 4.63-6.08 HEMOGLOBIN (BEAKER) (test kalx=539) 11.0 GM/DL 13.7-17.5 HEMATOCRIT (BEAKER) (test pzss=507) 33.5 % 40.1-51.0 MEAN CORPUSCULAR VOLUME (BEAKER) (test ykyi=898) 87.2 fL 79.0-92.2 MEAN CORPUSCULAR HEMOGLOBIN (BEAKER) (test 28.6 pg 25.7-32.2 mxvt=534) MEAN CORPUSCULAR HEMOGLOBIN CONC (BEAKER) (test 32.8 GM/DL 32.3-36.5 jkyn=024) RED CELL DISTRIBUTION WIDTH (BEAKER) (test 15.8 % 11.6-14.4 wekg=857) PLATELET COUNT (BEAKER) (test jxmw=183) 151 K/CU MM 150-450 MEAN PLATELET VOLUME (BEAKER) (test axkd=930) 11.6 fL 9.4-12.4 NUCLEATED RED BLOOD CELLS (BEAKER) (test 0 /100 WBC 0-0 tcrc=717) CT, BRAIN, WITHOUT [id number] 19:17:00FINAL REPORT CT head without contrast 05/25/2018 [...] Boykin Verified Date/Time: 2017 19:17:21 Reading Location: [facility] Radiology Reading Room Electronicallysigned by: MICHEAL BOYKIN M.D. on 05/25/2018 07:17 PMPOCT- GLUCOSE [id number] 17:10:00 Test Item Value Reference Range Comments POC-GLUCOSE METER (BEAKER) 186 mg/dL 70-[address] [facility] [address] [facility] (test stke=4967) [facility] [address] POCT-GLUCOSE [id number] 11:53:00 Test Item Value Reference Range Comments POC-GLUCOSE METER (BEAKER) 152 mg/dL 70-[address] [facility] [address] [facility] (test siwl=2851) [facility] [address] POCT-GLUCOSE [id number] 08:24:00 Test Item Value Reference Range Comments POC-GLUCOSE METER (BEAKER) 126 mg/dL 70-110 TESTED AT [place] [id number] [facility] (test bfdd=6126) [facility] [address] BASIC METABOLIC [id number] 06:46:00 Test Item Value Reference Range Comments SODIUM (BEAKER) (test 137 meq/L 136-145 cmul=026) POTASSIUM (BEAKER) (test 3.8 meq/L 3.5-5.1 Specimen slightly cmdg=568) hemolyzed CHLORIDE (BEAKER) (test 101 meq/L 98-107 caox=103) CO2 (BEAKER) (test 25 meq/L 22-29 ziej=612) BLOOD UREA NITROGEN 26 mg/dL 7-21 (BEAKER) (test eikt=585) CREATININE (BEAKER) (test 0.94 mg/dL 0.57-1.25 Specimen slightly xqeb=805) hemolyzed GLUCOSE RANDOM (BEAKER) 110 mg/dL 70-105 (test sdmn=328) CALCIUM (BEAKER) (test 9.2 mg/dL 8.4-10.2 vpaq=095) EGFR (BEAKER) (test 76 mL/min/1.73 sq m ESTIMATED GFR IS NOT ofwv=1330) ACCURATE CREATININE CLEARANCE IN PREDICTING GLOMERULAR FILTRATION RATE. ESTIMATED GFR IS NOT APPLICABLE FOR DIALYSIS PATIENTS. BLOOD [id number] 06:00:00 Test Item Value Reference Range Comments CULTURE (BEAKER) (test pvmq=5657) No growth in 5 days BLOOD [id number] 06:00:00 Test Item Value Reference Range Comments CULTURE (BEAKER) (test qlwb=1312) No growth in 5 days [id number] 05:50:00 Test Item Value Reference Range Comments MAGNESIUM (BEAKER) (test 2.3 mg/dL 1.6-2.6 Specimen slightly hemolyzed qfhv=050) PROTHROMBIN [id number] 05:44:00 Test Item Value Reference Range Comments PROTIME (BEAKER) (test ycyc=626) 13.8 seconds 11.7-14.7 INR (BEAKER) (test ldkh=914) 1.1 <=5.9 RECOMMENDED COUMADIN/WARFARIN INR THERAPY RANGESSTANDARD DOSE: 2.0 - 3.0 Includes: PROPHYLAXIS forvenous thrombosis, systemic embolization; TREATMENT for venous thrombosis and/or pulmonary embolus.HIGH RISK: Target INR is 2.5-3.5 for patients with mechanical heart valves.POCT-GLUCOSE [id number] 22:35:00 Test Item Value Reference Range Comments POC-GLUCOSE METER (BEAKER) 216 mg/dL 70-110 TESTED AT [address] (test oowi=1187) [place] [id number] POCT-GLUCOSE [id number] 17:10:00 Test Item Value Reference Range Comments POC-GLUCOSE METER (BEAKER) 240 mg/dL 70-110 TESTED AT [address] (test olmt=0142) [place] [address] POCT-GLUCOSE [id number] 12:11:00 Test Item Value Reference Range Comments POC-GLUCOSE METER (BEAKER) 172 mg/dL 70-110 TESTED AT [address] (test czqb=2864) [place] [address] [id number] 04:19:00 Test Item Value Reference Range Comments MAGNESIUM (BEAKER) (test facu=132) 2.2 mg/dL 1.6-2.6 BASIC METABOLIC [id number] 04:19:00 Test Item Value Reference Range Comments SODIUM (BEAKER) (test 140 meq/L 136-145 savt=212) POTASSIUM (BEAKER) (test 3.6 meq/L 3.5-5.1 dpsk=597) CHLORIDE (BEAKER) (test 105 meq/L 98-107 gmig=156) CO2 (BEAKER) (test 28 meq/L 22-29 xvti=005) BLOOD UREA NITROGEN 33 mg/dL 7-21 (BEAKER) (test kqtp=023) CREATININE (BEAKER) (test 0.96 mg/dL 0.57-1.25 xosw=913) GLUCOSE RANDOM (BEAKER) 128 mg/dL 70-105 (test yomm=738) CALCIUM (BEAKER) (test 9.0 mg/dL 8.4-10.2 wafh=903) EGFR (BEAKER) (test 74 mL/min/1.73 sq m ESTIMATED GFR IS NOT tbze=1378) ACCURATE CREATININE CLEARANCE IN PREDICTING GLOMERULAR FILTRATION RATE. ESTIMATED GFR IS NOT APPLICABLE FOR DIALYSIS PATIENTS. PROTHROMBIN [id number] 03:49:00 Test Item Value Reference Range Comments PROTIME (BEAKER) (test hkug=187) 13.8 seconds 11.7-14.7 INR (BEAKER) (test mdig=464) 1.1 <=5.9 RECOMMENDED COUMADIN/WARFARIN INR THERAPY RANGESSTANDARD DOSE: 2.0 - 3.0 Includes: PROPHYLAXIS forvenous thrombosis, systemic embolization; TREATMENT for venous thrombosis and/or pulmonary embolus.HIGH RISK: Target INR is 2.5-3.5 for patients with mechanical heart valves.While on warfarin.CBC (HEMOGRAM ONLY) 2018-05-24 03:43:00 Test Item Value Reference Range Comments WHITE BLOOD CELL COUNT (BEAKER) (test rhtk=970) 8.8 K/ L 3.5-10.5 RED BLOOD CELL COUNT (BEAKER) (test lmby=822) 3.23 M/ L 4.63-6.08 HEMOGLOBIN (BEAKER) (test qxrj=305) 9.2 GM/DL 13.7-17.5 HEMATOCRIT (BEAKER) (test gzrb=296) 28.5 % 40.1-51.0 MEAN CORPUSCULAR VOLUME (BEAKER) (test sbgy=275) 88.2 fL 79.0-92.2 MEAN CORPUSCULAR HEMOGLOBIN (BEAKER) (test 28.5 pg 25.7-32.2 xqkq=452) MEAN CORPUSCULAR HEMOGLOBIN CONC (BEAKER) (test 32.3 GM/DL 32.3-36.5 mxgy=520) RED CELL DISTRIBUTION WIDTH (BEAKER) (test 15.0 % 11.6-14.4 uzdc=191) PLATELET COUNT (BEAKER) (test akld=754) 87 K/CU MM 150-450 MEAN PLATELET VOLUME (BEAKER) (test lvqd=803) 11.6 fL 9.4-12.4 NUCLEATED RED BLOOD CELLS (BEAKER) (test 0 /100 WBC 0-0 kuch=189) POCT-GLUCOSE [id number] 23:13:00 Test Item Value Reference Range Comments POC-GLUCOSE METER (BEAKER) 170 mg/dL 70-110 TESTED AT [address] (test jiuj=7962) [facility] [address] POCT-GLUCOSE [id number] 17:11:00 Test Item Value Reference Range Comments POC-GLUCOSE METER (BEAKER) 290 mg/dL 70-110 TESTED AT [address] (test ieih=5311) [facility] [address] CT, BRAIN, WITHOUT [id number] 15:31:00Reason for exam:->Cerebral embolizationWhat is the patient's [...] Boykin Verified Date/Time: 05/23/2018 15:31:32 Reading Location: [address] Neuro Reading Room POCT-GLUCOSE [id number] 12:34:00 Test Item Value Reference Range Comments POC-GLUCOSE METER (BEAKER) 204 mg/dL 70-110 TESTED AT [address] (test utsx=8370) [facility] [address] [id number] 08:24:00 Test Item Value Reference Range Comments FERRITIN (BEAKER) (test tfmk=368) 435 ng/mL 5-275 POCT-GLUCOSE [id number] 08:21:00 Test Item Value Reference Range Comments POC-GLUCOSE METER (BEAKER) 134 mg/dL 70-[address] [facility] [address] [facility] (test uxph=4205) [facility] [address] IRON, TIBC, % SAT. (WITHOUT FERRITIN)2018-05-23 07:34:00 Test Item Value Reference Range Comments IRON (BEAKER) (test jqty=300) 63 ug/dL 40-160 TOTAL IRON BINDING CAPACITY (BEAKER) (test 224 ug/dL 250-450 oejq=441) IRON % SATURATION (2) (BEAKER) (test cxsi=5775) 28 % 20-55 [id number] 06:45:00 Test Item Value Reference Range Comments PARTIAL THROMBOPLASTIN TIME (BEAKER) (test 94.3 seconds 22.5-36.0 jvyv=200) [id number] 06:05:00 Test Item Value Reference Range Comments MAGNESIUM (BEAKER) (test vkte=277) 2.3 mg/dL 1.6-2.6 BASIC METABOLIC [id number] 06:05:00 Test Item Value Reference Range Comments SODIUM (BEAKER) (test 138 meq/L 136-145 rsic=855) POTASSIUM (BEAKER) (test 3.5 meq/L 3.5-5.1 lrzv=917) CHLORIDE (BEAKER) (test 102 meq/L 98-107 tesd=615) CO2 (BEAKER) (test 27 meq/L 22-29 jdaq=377) BLOOD UREA NITROGEN 38 mg/dL 7-21 (BEAKER) (test rrry=369) CREATININE (BEAKER) (test 1.16 mg/dL 0.57-1.25 acpe=785) GLUCOSE RANDOM (BEAKER) 118 mg/dL 70-105 (test vpyq=151) CALCIUM (BEAKER) (test 8.9 mg/dL 8.4-10.2 osms=771) EGFR (BEAKER) (test 60 mL/min/1.73 sq m ESTIMATED GFR IS NOT nekb=6971) ACCURATE CREATININE CLEARANCE IN PREDICTING GLOMERULAR FILTRATION RATE. ESTIMATED GFR IS NOT APPLICABLE FOR DIALYSIS PATIENTS. CBC (HEMOGRAM ONLY)2018-05-23 05:55:00 Test Item Value Reference Range Comments WHITE BLOOD CELL COUNT (BEAKER) (test kchm=223) 9.8 K/ L 3.5-10.5 RED BLOOD CELL COUNT (BEAKER) (test dsyr=559) 2.77 M/ L 4.63-6.08 HEMOGLOBIN (BEAKER) (test blrm=786) 7.7 GM/DL 13.7-17.5 HEMATOCRIT (BEAKER) (test kair=758) 24.0 % 40.1-51.0 MEAN CORPUSCULAR VOLUME (BEAKER) (test kdkf=992) 86.6 fL 79.0-92.2 MEAN CORPUSCULAR HEMOGLOBIN (BEAKER) (test 27.8 pg 25.7-32.2 eser=190) MEAN CORPUSCULAR HEMOGLOBIN CONC (BEAKER) (test 32.1 GM/DL 32.3-36.5 enej=209) RED CELL DISTRIBUTION WIDTH (BEAKER) (test 15.9 % 11.6-14.4 jnxg=889) PLATELET COUNT (BEAKER) (test ntvz=591) 74 K/CU MM 150-450 MEAN PLATELET VOLUME (BEAKER) (test rdgc=649) 11.8 fL 9.4-12.4 NUCLEATED RED BLOOD CELLS (BEAKER) (test 0 /100 WBC 0-0 eouk=369) [id number] 23:49:00 Test Item Value Reference Range Comments PARTIAL THROMBOPLASTIN TIME (BEAKER) (test 82.0 seconds 22.5-36.0 cbxt=504) POCT-GLUCOSE [id number] 22:25:00 Test Item Value Reference Range Comments POC-GLUCOSE METER (BEAKER) 212 mg/dL 70-110 TESTED AT [address] (test rcux=3645) [place] [id number] 21:32:00 Test Item Value Reference Range Comments PARTIAL THROMBOPLASTIN TIME (BEAKER) (test 131.6 seconds 22.5-36.0 alut=919) POCT-GLUCOSE [id number] 17:58:00 Test Item Value Reference Range Comments POC-GLUCOSE METER (BEAKER) 296 mg/dL 70-110 TESTED AT [address] (test hqmz=8424) [place] [id number] 14:27:00 Test Item Value Reference Range Comments PARTIAL THROMBOPLASTIN TIME (BEAKER) (test 96.3 seconds 22.5-36.0 xuxo=744) URINE [id number] 12:50:00 Test Item Value Reference Range Comments CULTURE (BEAKER) (test eirz=5390) No growth [id number] 12:49:00 Test Item Value Reference Range Comments PARTIAL THROMBOPLASTIN TIME (BEAKER) (test 150.3 seconds 22.5-36.0 munb=485) [id number] 05:53:00 Test Item Value Reference Range Comments PARTIAL THROMBOPLASTIN TIME (BEAKER) (test 44.1 seconds 22.5-36.0 oqak=950) [id number] 03:32:00 Test Item Value Reference Range Comments PROTIME (BEAKER) (test mtxd=461) 15.0 seconds 11.7-14.7 INR (BEAKER) (test biou=750) 1.2 <=5.9 PARTIAL THROMBOPLASTIN TIME (BEAKER) (test 179.7 seconds 22.5-36.0 decz=993) RECOMMENDED COUMADIN/WARFARIN INR THERAPY RANGESSTANDARD DOSE: 2.0 - 3.0 Includes: PROPHYLAXIS forvenous thrombosis, systemic embolization; TREATMENT for venous thrombosis and/or pulmonary embolus.HIGH RISK: Target INR is 2.5-3.5 for patients with mechanical heart valves.[id number] 02:54:00 Test Item Value Reference Range Comments PHOSPHORUS (BEAKER) (test ixiz=752) 3.6 mg/dL 2.3-4.7 [id number] 02:54:00 Test Item Value Reference Range Comments MAGNESIUM (BEAKER) (test cpag=940) 2.4 mg/dL 1.6-2.6 BASIC METABOLIC [id number] 02:54:00 Test Item Value Reference Range Comments SODIUM (BEAKER) (test 138 meq/L 136-145 nnlw=830) POTASSIUM (BEAKER) (test 3.7 meq/L 3.5-5.1 ckoy=752) CHLORIDE (BEAKER) (test 101 meq/L 98-107 abqo=755) CO2 (BEAKER) (test 27 meq/L 22-29 moam=702) BLOOD UREA NITROGEN 44 mg/dL 7-21 (BEAKER) (test usie=557) CREATININE (BEAKER) (test 1.30 mg/dL 0.57-1.25 dcba=252) GLUCOSE RANDOM (BEAKER) 131 mg/dL 70-105 (test dqak=621) CALCIUM (BEAKER) (test 8.9 mg/dL 8.4-10.2 fdeg=069) EGFR (BEAKER) (test 52 mL/min/1.73 sq m ESTIMATED GFR IS NOT gqbh=0792) ACCURATE CREATININE CLEARANCE IN PREDICTING GLOMERULAR FILTRATION RATE. ESTIMATED GFR IS NOT APPLICABLE FOR DIALYSIS PATIENTS. VANCOMYCIN LEVEL, [id number] 02:53:00 Test Item Value Reference Range Comments VANCOMYCIN RANDOM (BEAKER) (test wphq=903) 24.4 ug/mL Reference Range: No NormalsCALCIUM, [id number] 02:49:00 Test Item Value Reference Range Comments CALCIUM IONIZED (BEAKER) (test vbjx=878) 1.15 mmol/L 1.12-1.27 PH, BLOOD (BEAKER) (test hini=0399) 7.40 CBC (HEMOGRAM ONLY)2018-05-22 02:29:00 Test Item Value Reference Range Comments WHITE BLOOD CELL COUNT (BEAKER) (test nzto=977) 13.9 K/ L 3.5-10.5 RED BLOOD CELL COUNT (BEAKER) (test iacs=662) 2.94 M/ L 4.63-6.08 HEMOGLOBIN (BEAKER) (test pmaw=445) 8.3 GM/DL 13.7-17.5 HEMATOCRIT (BEAKER) (test cgrd=207) 25.5 % 40.1-51.0 MEAN CORPUSCULAR VOLUME (BEAKER) (test yjiz=496) 86.7 fL 79.0-92.2 MEAN CORPUSCULAR HEMOGLOBIN (BEAKER) (test 28.2 pg 25.7-32.2 iqny=125) MEAN CORPUSCULAR HEMOGLOBIN CONC (BEAKER) (test 32.5 GM/DL 32.3-36.5 lfoi=217) RED CELL DISTRIBUTION WIDTH (BEAKER) (test 15.9 % 11.6-14.4 wdum=765) PLATELET COUNT (BEAKER) (test yxnj=994) 67 K/CU MM 150-450 MEAN PLATELET VOLUME (BEAKER) (test zydq=845) 11.8 fL 9.4-12.4 NUCLEATED RED BLOOD CELLS (BEAKER) (test 0 /100 WBC 0-0 rtza=516) [id number] 00:28:00 Test Item Value Reference Range Comments PROTIME (BEAKER) (test vauk=942) 15.9 seconds 11.7-14.7 INR (BEAKER) (test qxce=625) 1.3 <=5.9 PARTIAL THROMBOPLASTIN TIME (BEAKER) (test 170.7 seconds 22.5-36.0 jbzz=695) RECOMMENDED COUMADIN/WARFARIN INR THERAPY RANGESSTANDARD DOSE: 2.0 - 3.0 Includes: PROPHYLAXIS forvenous thrombosis, systemic embolization; TREATMENT for venous thrombosis and/or pulmonary embolus.HIGH RISK: Target INR is 2.5-3.5 for patients with mechanical heart valves.BASIC METABOLIC [id number] 13:37: 00 Test Item Value Reference Range Comments SODIUM (BEAKER) (test 139 meq/L 136-145 hjuc=756) POTASSIUM (BEAKER) (test 3.8 meq/L 3.5-5.1 qdjw=684) CHLORIDE (BEAKER) (test 101 meq/L 98-107 csnj=139) CO2 (BEAKER) (test 26 meq/L 22-29 ojig=043) BLOOD UREA NITROGEN 46 mg/dL 7-21 (BEAKER) (test lbto=756) CREATININE (BEAKER) (test 1.60 mg/dL 0.57-1.25 tkaa=381) GLUCOSE RANDOM (BEAKER) 160 mg/dL 70-105 (test epgf=015) CALCIUM (BEAKER) (test 9.1 mg/dL 8.4-10.2 ygoq=708) EGFR (BEAKER) (test 41 mL/min/1.73 sq m ESTIMATED GFR IS NOT jvwm=6134) ACCURATE CREATININE CLEARANCE IN PREDICTING GLOMERULAR FILTRATION RATE. ESTIMATED GFR IS NOT APPLICABLE FOR DIALYSIS PATIENTS. MR, MRA, BRAIN, WITHOUT [id number] 12:04:00Reason for exam:-> Ischemic Stroke EvaluationFINAL REPORT MRA Head and Neck CLINICAL HISTORY: Stroke TECHNIQUE: MRA of thehead utilizing 3-D cavl-du-libjhs technique, with 3-D reconstructions.MRA of the neck utilizing 2-D and 3-D time- of-flight technique, with 3-D reconstructions. COMPARISON: None FINDINGS: There is no evidence for a [place] proximal branch vessel occlusion. There [...] vertebral arteries. IMPRESSION: No evidence for a [place] proximal branchvessel occlusion. No hemodynamically significant stenosis in the internal carotid arteries. 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 Signed: Jaycob Alvarado Verified Date/Time: 05/21/2018 12:04:26 Reading Location: [address] Neuro Reading Room MR, MRA, NECK, WITHOUT IV [id number] 12:04:00Reason for exam:->Ischemic Stroke EvaluationFINAL REPORT MRA Head and Neck CLINICAL HISTORY: Stroke TECHNIQUE: MRA of thehead utilizing 3-D zuvd-gj-zjisbs technique, with 3-D reconstructions.MRA of the neck utilizing 2-D and 3-D tdvr-ql-prfnbs technique, with 3-D reconstructions. COMPARISON: None FINDINGS: There is no evidence for a [place] proximal branch vessel occlusion. There [...] vertebral arteries. IMPRESSION: No evidence for a [place] proximal branchvessel occlusion. No hemodynamically significant stenosis in the internal carotid arteries. 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 Signed: Jaycob Alvarado Verified Date/Time: 05/21/2018 12:04:26 Reading Location: [address] Neuro Reading Room MR, BRAIN, WITHOUT [id number] 11:58:00Reason for exam:->Ischemic Stroke EvaluationFINAL REPORT MRI [...] Alvarado Verified Date/Time: 05/21/2018 11:58:08 Reading Location: [address] Neuro Reading Room RAD, CHEST, 1 VIEW, NON [id number] 10:54:00Reason for exam:->hypoxemiaShould this be performed at [...] No significant change. Signed : Addy Zapata MDReport Verified Date/Time: 05/21/2018 10:54:40 Reading Location: [facility] B1 C013X Ortho Consult Reading Room HEMOGLOBIN [id number] 08:30:00 Test Item Value Reference Range Comments HEMOGLOBIN A1C (BEAKER) (test opzw=085) 8.1 % 4.3-6.1 LIPID [id number] 07:31:00 Test Item Value Reference Range Comments TRIGLYCERIDES (BEAKER) (test jilc=844) 348 mg/dL CHOLESTEROL (BEAKER) (test qvdd=868) 208 mg/dL HDL CHOLESTEROL (BEAKER) (test tked=269) 26 mg/dL LDL CHOLESTEROL CALCULATED (BEAKER) (test 112 mg/dL woaf=706) Triglyceride Reference Range: Low Risk <150 Borderline 150- 199 High Risk 200-499 Very High Risk >=500Cholesterol Reference Range: Low Risk <200 Borderline 200-239 High Risk > 240HDL Cholesterol Reference Range: Low Risk >=60 High Risk <40LDL Cholesterol Reference Range: Optimal <100 Near Optimal 100-129 Borderline 130-159 High 160-189 Very High >=[id number] 04:49:00 Test Item Value Reference Range Comments PHOSPHORUS (BEAKER) (test hqvu=836) 6.4 mg/dL 2.3-4.7 [id number] 04:49:00 Test Item Value Reference Range Comments MAGNESIUM (BEAKER) (test gswj=219) 2.3 mg/dL 1.6-2.6 BASIC METABOLIC [id number] 04:49:00 Test Item Value Reference Range Comments SODIUM (BEAKER) (test 139 meq/L 136-145 jjic=563) POTASSIUM (BEAKER) (test 3.8 meq/L 3.5-5.1 rqyb=284) CHLORIDE (BEAKER) (test 102 meq/L 98-107 hzqm=737) CO2 (BEAKER) (test 23 meq/L 22-29 eqme=769) BLOOD UREA NITROGEN 49 mg/dL 7-21 (BEAKER) (test agbu=276) CREATININE (BEAKER) (test 1.96 mg/dL 0.57-1.25 tthd=365) GLUCOSE RANDOM (BEAKER) 175 mg/dL 70-105 (test mehf=241) CALCIUM (BEAKER) (test 8.7 mg/dL 8.4-10.2 rmkm=901) EGFR (BEAKER) (test 33 mL/min/1.73 sq m ESTIMATED GFR IS NOT fbxv=6168) ACCURATE CREATININE CLEARANCE IN PREDICTING GLOMERULAR FILTRATION RATE. ESTIMATED GFR IS NOT APPLICABLE FOR DIALYSIS PATIENTS. VITAMIN [id number] 04:11:00 Test Item Value Reference Range Comments VITAMIN B12 (BEAKER) (test qscr=189) 692 pg/mL 213-816 TSH/FREE T4 IF [id number] 04:11:00 Test Item Value Reference Range Comments THYROID STIMULATING HORMONE (BEAKER) (test 0.77 uIU/mL 0.35-4.94 vcpg=439) CALCIUM, [id number] 03:53:00 Test Item Value Reference Range Comments CALCIUM IONIZED (BEAKER) (test ffje=728) 1.12 mmol/L 1.12-1.27 PH, BLOOD (BEAKER) (test uzai=6304) 7.35 CBC (HEMOGRAM ONLY)2018-05-21 03:16:00 Test Item Value Reference Range Comments WHITE BLOOD CELL COUNT (BEAKER) (test sxew=808) 16.4 K/ L 3.5-10.5 RED BLOOD CELL COUNT (BEAKER) (test viph=537) 3.61 M/ L 4.63-6.08 HEMOGLOBIN (BEAKER) (test zzby=958) 10.1 GM/DL 13.7-17.5 HEMATOCRIT (BEAKER) (test sfhy=971) 32.2 % 40.1-51.0 MEAN CORPUSCULAR VOLUME (BEAKER) (test xwel=169) 89.2 fL 79.0-92.2 MEAN CORPUSCULAR HEMOGLOBIN (BEAKER) (test 28.0 pg 25.7-32.2 pldq=817) MEAN CORPUSCULAR HEMOGLOBIN CONC (BEAKER) (test 31.4 GM/DL 32.3-36.5 hkzx=981) RED CELL DISTRIBUTION WIDTH (BEAKER) (test 16.1 % 11.6-14.4 jgrs=063) PLATELET COUNT (BEAKER) (test fsnb=918) 81 K/CU MM 150-450 MEAN PLATELET VOLUME (BEAKER) (test xzee=920) 11.0 fL 9.4-12.4 NUCLEATED RED BLOOD CELLS (BEAKER) (test 0 /100 WBC 0-0 onlj=073) EEG AWAKE AND [id number] 15:54:00Reason for exam:->AMSDate(s) of EEDATE OF REPORT: 05/20/2018ACC: [id number] Number: [id number] Location : Inpatient ICUStart time: 14:17Stop time: 14:38ICD-10: R56.9CPT Code: 96113 HISTORY: 87 y.o. RHM w/ severe who [...] waves can indicate a potential seizure focus.. Ammar Alobaidy, MDNeurophysiology Fellow, PGY5 [facility] NeurophysiologistCHI [facility] POCT- GLUCOSE [id number] 13:52:00 Test Item Value Reference Range Comments POC-GLUCOSE METER (BEAKER) 163 mg/dL 70-[address] [facility] [address] [facility] (test rvmz=9061) [facility] [address] TROPONIN [id number] 11:59:00 Test Item Value Reference Range Comments TROPONIN I (BEAKER) (test mnci=137) 1.13 ng/mL 0.00-0.03 Troponin I (TnI) levels [...] acute neurological disease, and persistent tachyarrhythmia.COMPREHENSIVE METABOLIC [id number] 11:47:00 Test Item Value Reference Range Comments TOTAL PROTEIN (BEAKER) 5.7 gm/dL 6.0-8.3 (test sluo=156) ALBUMIN (BEAKER) (test 3.4 g/dL 3.5-5.0 fbla=0639) ALKALINE PHOSPHATASE 42 U/L 40-150 (BEAKER) (test mdpt=539) BILIRUBIN TOTAL (BEAKER) 0.8 mg/dL 0.2-1.2 (test wktf=805) SODIUM (BEAKER) (test 139 meq/L 136-145 pwwx=889) POTASSIUM (BEAKER) (test 4.2 meq/L 3.5-5.1 kzcs=720) CHLORIDE (BEAKER) (test 100 meq/L 98-107 pzge=725) CO2 (BEAKER) (test 23 meq/L 22-29 vfvp=562) BLOOD UREA NITROGEN 38 mg/dL 7-21 (BEAKER) (test lhnt=053) CREATININE (BEAKER) (test 2.17 mg/dL 0.57-1.25 amrq=875) GLUCOSE RANDOM (BEAKER) 129 mg/dL 70-105 (test saxb=150) CALCIUM (BEAKER) (test 9.0 mg/dL 8.4-10.2 ronr=473) AST (SGOT) (BEAKER) (test 27 U/L 5-34 yeka=938) ALT (SGPT) (BEAKER) (test 14 U/L 6-55 ktdg=075) EGFR (BEAKER) (test 29 mL/min/1.73 sq m ESTIMATED GFR IS NOT wgrx=8854) ACCURATE CREATININE CLEARANCE IN PREDICTING GLOMERULAR FILTRATION RATE. ESTIMATED GFR IS NOT APPLICABLE FOR DIALYSIS PATIENTS. CREATINE KINASE (CK), TOTAL AND [id number] 11:42:00 Test Item Value Reference Range Comments CREATINE KINASE TOTAL (BEAKER) (test jbpf=843) 138 U/L 29-200 CREATINE KINASE-MB (BEAKER) (test vgdp=669) 4.2 ng/mL 0.0-6.6 CREATINE KINASE-MB INDEX (BEAKER) (test ukpc=055) 3.0 % CK-MB Reference Range:<6.7 Normal6.7-10.0 Borderline>10.0 [id number] 11:36:00 Test Item Value Reference Range Comments PHOSPHORUS (BEAKER) (test fuuj=075) 5.4 mg/dL 2.3-4.7 [id number] 11:36:00 Test Item Value Reference Range Comments MAGNESIUM (BEAKER) (test luwe=706) 2.3 mg/dL 1.6-2.6 RAD, ABDOMEN/KUB, 1 VIEW [id number] 11:33:00Reason for exam:->Nasogastric tube insertionShould this be performed at the bedside?->YesFINAL REPORT Abdomen one view INDICATION: Nasogastric tube insertion COMPARISON: None available IMPRESSION: NG tube extends to the gastric body. The imaged bowel gas pattern is nonspecific. There are degenerative spine changes and incidental vascular calcifications. The imaged chest is similar to 2017. Signed: Kenan Motteport Verified Date/Time: 05/20/2018 11: 33:02 Reading Location: [facility] Radiology Reading Room LACTIC ACID, VENOUS, WHOLE [id number] 11:32:00 Test Item Value Reference Range Comments LACTATE BLOOD VENOUS (2) (BEAKER) (test 2.1 mmol/L 0.5-2.2 uifz=3697) Effective 04/02/2016: Units/Reference Range ChangeNew: 0.5-2.2 mmol/L Previous: 5 -20 mg/dLBLOOD GAS, [id number] 11:21:00 Test Item Value Reference Range Comments PH VENOUS (BEAKER) (test zzbd=963) 7.40 7.32-7.42 PCO2 VENOUS (BEAKER) (test wrwi=721) 45 mmHg 41-51 PO2 VENOUS (BEAKER) (test ayog=806) 26 mmHg 25-40 O2 SATURATION VENOUS (BEAKER) (test rpnp=307) 46.3 % 40.0-70.0 HCO3 VENOUS (BEAKER) (test rdlh=687) 27 mmol/L 21-29 BASE EXCESS VENOUS (BEAKER) (test bmql=952) 1.8 mmol/L -2.0-3.0 PATIENT TEMPERATURE (BEAKER) (test pxzv=7924) 36.9 C FIO2 (BEAKER) (test xjlf=1520) 36.0 % BASIC METABOLIC [id number] 05:05:00 Test Item Value Reference Range Comments SODIUM (BEAKER) (test 140 meq/L 136-145 suqy=908) POTASSIUM (BEAKER) (test 3.9 meq/L 3.5-5.1 Specimen slightly auug=824) hemolyzed CHLORIDE (BEAKER) (test 105 meq/L 98-107 wqwy=495) CO2 (BEAKER) (test 21 meq/L 22-29 tvmh=002) BLOOD UREA NITROGEN 31 mg/dL 7-21 (BEAKER) (test quen=967) CREATININE (BEAKER) (test 1.63 mg/dL 0.57-1.25 Specimen slightly wapi=693) hemolyzed GLUCOSE RANDOM (BEAKER) 124 mg/dL 70-105 (test gsky=143) CALCIUM (BEAKER) (test 8.0 mg/dL 8.4-10.2 icwk=009) EGFR (BEAKER) (test 40 mL/min/1.73 sq m ESTIMATED GFR IS NOT qifg=4670) ACCURATE CREATININE CLEARANCE IN PREDICTING GLOMERULAR FILTRATION RATE. ESTIMATED GFR IS NOT APPLICABLE FOR DIALYSIS PATIENTS. CBC (HEMOGRAM ONLY)2018-05-20 04:44:00 Test Item Value Reference Range Comments WHITE BLOOD CELL COUNT (BEAKER) (test dejb=737) 16.5 K/ L 3.5-10.5 RED BLOOD CELL COUNT (BEAKER) (test lxkg=257) 3.86 M/ L 4.63-6.08 HEMOGLOBIN (BEAKER) (test xlog=096) 10.6 GM/DL 13.7-17.5 HEMATOCRIT (BEAKER) (test fhrd=658) 34.3 % 40.1-51.0 MEAN CORPUSCULAR VOLUME (BEAKER) (test esef=733) 88.9 fL 79.0-92.2 MEAN CORPUSCULAR HEMOGLOBIN (BEAKER) (test 27.5 pg 25.7-32.2 iuxf=192) MEAN CORPUSCULAR HEMOGLOBIN CONC (BEAKER) (test 30.9 GM/DL 32.3-36.5 ekny=337) RED CELL DISTRIBUTION WIDTH (BEAKER) (test 16.2 % 11.6-14.4 zhit=721) PLATELET COUNT (BEAKER) (test qixc=454) 103 K/CU MM 150-450 MEAN PLATELET VOLUME (BEAKER) (test hxfk=038) 11.2 fL 9.4-12.4 NUCLEATED RED BLOOD CELLS (BEAKER) (test 0 /100 WBC 0-0 pnlz=391) URINALYSIS W/ [id number] 00:09:00 Test Item Value Reference Range Comments COLOR (BEAKER) (test esnz=707) Yellow CLARITY (BEAKER) (test ypwo=402) Clear SPECIFIC GRAVITY UA (BEAKER) (test mjrh=529) 1.017 1.001-1.035 PH UA (BEAKER) (test yqha=240) 5.0 5.0-8.0 PROTEIN UA (BEAKER) (test atwt=677) Negative Negative GLUCOSE UA (BEAKER) (test ubnj=063) Negative Negative KETONES UA (BEAKER) (test hdnm=052) Negative Negative BILIRUBIN UA (BEAKER) (test komp=611) Negative Negative BLOOD UA (BEAKER) (test vklc=215) Small Negative NITRITE UA (BEAKER) (test iygp=003) Negative Negative LEUKOCYTE ESTERASE UA (BEAKER) (test yybb=616) Negative Negative UROBILINOGEN UA (BEAKER) (test xpyk=249) 0.2 mg/dL 0.2-1.0 RBC UA (BEAKER) (test gikj=052) 12 /HPF WBC UA (BEAKER) (test fspo=876) 1 /HPF MUCUS (BEAKER) (test fxfb=1461) Rare AMORPHOUS CRYSTALS (BEAKER) (test ocbz=6129) Occasional SOURCE(BEAKER) (test vfqc=5259) Urine, [place] [facility], CHEST, 1 VIEW, NON [id number] 21:46:00Reason for exam:->tavrShould this be performed at the bedside?->YesFINAL REPORT INDICATION: tavr COMPARISON: None. TECHNIQUE: Chest radiograph, single view, portable technique. 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 Intact median sternotomy wires noted. No pulmonary edema, aspiration, pneumothorax, or pleural effusion demonstrated. Signed: Vladislav Michael MDReport Verified Date/Time: 05/19/2018 21:46:23 Reading Location: [address] Consult Reading Room POCT-LACTIC ACID, [id number] 21:21:00 Test Item Value Reference Range Comments POC-LACTIC ACID, ARTERIAL 1.5 mmol/L 0.4-1.3 TESTED AT [address] (BEAKER) (test ardq=4478) [facility] [address] POCT-BLOOD GASES, [id number] 21:21:00 Test Item Value Reference Range Comments TEMP, CELSIUS-POC (BEAKER) 37.1 (test hbpl=9345) FIO2-POC (BEAKER) (test 29 TESTED AT [address] kpba=7917) [facility] [address] PH, ARTERIAL-POC (BEAKER) 7.468 7.350-7.450 (test epld=3746) PCO2, ARTERIAL-POC (BEAKER) 34.4 mm Hg 35.0-45.0 (test qzsu=7714) PO2, ARTERIAL-POC (BEAKER) 63.0 mm Hg 80.0-90.0 (test ssim=3865) SO2, ARTERIAL-POC (BEAKER) 93.0 % 96.0-97.0 (test wdlc=7768) HCO3, ARTERIAL-POC (BEAKER) 24.9 meq/L 21.0-29.0 (test kdvh=2588) BASE EXCESS, ARTERIAL-POC 1.0 meq/L -2.0-3.0 (BEAKER) (test penx=4515) [id number] 21:21:00 Test Item Value Reference Range Comments POC-SODIUM (BEAKER) (test 137 meq/L 135-148 TESTED AT [address] dzkx=9885) [place] [address] [id number] 21:21:00 Test Item Value Reference Range Comments POC-POTASSIUM (BEAKER) (test 3.6 meq/L 3.6-5.5 TESTED AT [address] yukk=4592) [place] [address] [id number] 21:21:00 Test Item Value Reference Range Comments POC-GLUCOSE (BEAKER) (test 152 mg/dL 70-110 TESTED AT [address] xczd=4734) [place] [address] POCT-CALCIUM [id number] 21:21:00 Test Item Value Reference Range Comments POC-CALCIUM IONIZED (BEAKER) 1.19 mmol/L 1.12-1.27 TESTED AT [address] (test pdpb=3798) [place] [address] [id number] 21:21:00 Test Item Value Reference Range Comments POC-HEMATOCRIT (BEAKER) (test 32 % 40-50 TESTED AT [address] zznu=4856) [place] [address] [id number] 21:21:00 Test Item Value Reference Range Comments POC-HEMOGLOBIN (BEAKER) 10.9 g/dL 13.0-16.8 TESTED AT [address] (test zlei=2165) [place] [address]TESTED AT [place] [address] TROPONIN [id number] 20:56:00 Test Item Value Reference Range Comments TROPONIN I (BEAKER) (test vdvn=851) 0.73 ng/mL 0.00-0.03 Troponin I (TnI) levels [...] and persistent tachyarrhythmia.CREATINE KINASE (CK), TOTAL AND [id number] 20:49:00 Test Item Value Reference Range Comments CREATINE KINASE TOTAL (BEAKER) (test lmcd=974) 41 U/L 29-200 CREATINE KINASE-MB (BEAKER) (test jusj=809) 3.5 ng/mL 0.0-6.6 CREATINE KINASE-MB INDEX (BEAKER) (test pcmx=590) 8.5 % CK-MB Reference Range:<6.7 Normal6.7-10.0 Borderline>10.0 AbnormalCT, BRAIN/STROKE [id number] 20:46:00Reason for exam:-> altered mental statusFINAL REPORT [...] on 05/19/2018 at 2040. Signed: Micheal Boykin Verified Date/Time: 05/19/2018 20:46:09 Reading Location: [facility] Radiology Reading Room BASI METABOLIC [id number] 20: 42:00 Test Item Value Reference Range Comments SODIUM (BEAKER) (test 138 meq/L 136-145 ogpe=459) POTASSIUM (BEAKER) (test 3.8 meq/L 3.5-5.1 lign=317) CHLORIDE (BEAKER) (test 100 meq/L 98-107 sovj=893) CO2 (BEAKER) (test 26 meq/L 22-29 qpvn=098) BLOOD UREA NITROGEN 27 mg/dL 7-21 (BEAKER) (test ejdk=669) CREATININE (BEAKER) (test 1.41 mg/dL 0.57-1.25 zvor=122) GLUCOSE RANDOM (BEAKER) 146 mg/dL 70-105 (test ltzw=609) CALCIUM (BEAKER) (test 8.7 mg/dL 8.4-10.2 xjpq=922) EGFR (BEAKER) (test 48 mL/min/1.73 sq m ESTIMATED GFR IS NOT epva=9503) ACCURATE CREATININE CLEARANCE IN PREDICTING GLOMERULAR FILTRATION RATE. ESTIMATED GFR IS NOT APPLICABLE FOR DIALYSIS PATIENTS. [id number] 20:32:00 Test Item Value Reference Range Comments PROTIME (BEAKER) (test pcey=077) 14.2 seconds 11.7-14.7 INR (BEAKER) (test hksy=036) 1.1 <=5.9 PARTIAL THROMBOPLASTIN TIME (BEAKER) (test 31.4 seconds 22.5-36.0 wkfa=815) RECOMMENDED COUMADIN/WARFARIN INR THERAPY RANGESSTANDARD DOSE: 2.0 - 3.0 Includes: PROPHYLAXIS forvenous thrombosis, systemic embolization; TREATMENT for venous thrombosis and/or pulmonary embolus.HIGH RISK: Target INR is 2.5-3.5 for patients with mechanical heart valves.CBC W/PLT COUNT & AUTO [id number] 20:30:00 Test Item Value Reference Range Comments WHITE BLOOD CELL COUNT (BEAKER) (test qitc=277) 12.5 K/ L 3.5-10.5 RED BLOOD CELL COUNT (BEAKER) (test efyp=273) 3.77 M/ L 4.63-6.08 HEMOGLOBIN (BEAKER) (test lefa=768) 10.4 GM/DL 13.7-17.5 HEMATOCRIT (BEAKER) (test hhsj=619) 34.1 % 40.1-51.0 MEAN CORPUSCULAR VOLUME (BEAKER) (test dzuh=563) 90.5 fL 79.0-92.2 MEAN CORPUSCULAR HEMOGLOBIN (BEAKER) (test 27.6 pg 25.7-32.2 dgif=333) MEAN CORPUSCULAR HEMOGLOBIN CONC (BEAKER) (test 30.5 GM/DL 32.3-36.5 zbzq=889) RED CELL DISTRIBUTION WIDTH (BEAKER) (test 16.4 % 11.6-14.4 xcfn=151) PLATELET COUNT (BEAKER) (test jllo=533) 116 K/CU MM 150-450 MEAN PLATELET VOLUME (BEAKER) (test hfyq=870) 10.6 fL 9.4-12.4 NUCLEATED RED BLOOD CELLS (BEAKER) (test 0 /100 WBC 0-0 wcvf=763) NEUTROPHILS RELATIVE PERCENT (BEAKER) (test 74 % rfhu=470) LYMPHOCYTES RELATIVE PERCENT (BEAKER) (test 18 % roug=266) MONOCYTES RELATIVE PERCENT (BEAKER) (test 6 % gblq=953) EOSINOPHILS RELATIVE PERCENT (BEAKER) (test 1 % ehpd=148) BASOPHILS RELATIVE PERCENT (BEAKER) (test 0 % lyel=384) NEUTROPHILS ABSOLUTE COUNT (BEAKER) (test 9.27 K/ L 1.78-5.38 xahf=404) LYMPHOCYTES ABSOLUTE COUNT (BEAKER) (test 2.24 K/ L 1.32-3.57 useq=964) MONOCYTES ABSOLUTE COUNT (BEAKER) (test 0.73 K/ L 0.30-0.82 ceoj=481) EOSINOPHILS ABSOLUTE COUNT (BEAKER) (test 0.13 K/ L 0.04-0.54 hqnx=493) BASOPHILS ABSOLUTE COUNT (BEAKER) (test 0.03 K/ L 0.01-0.08 cxyf=044) IMMATURE GRANULOCYTES-RELATIVE PERCENT (BEAKER) 1 % 0-1 (test nmtq=2486) POCT-GLUCOSE [id number] 20:01:00 Test Item Value Reference Range Comments POC-GLUCOSE METER (BEAKER) 182 mg/dL 70-[address] [facility] [address] [facility] (test wrqf=9166) [facility] [address] [id number] 09:06:00 Test Item Value Reference Range Comments ACTIVATED CLOTTING TIME [address] [facility] [address] [facility] (BEAKER) (test qwlv=784) [facility] [address] B-TYPE NATRIURETIC FACTOR (BNP)2018-04-21 15:09:00 Test Item Value Reference Range Comments B-TYPE NATRIURETIC PEPTIDE (BEAKER) (test 785 pg/mL 0-100 lfih=162) COMPREHENSIVE METABOLIC [id number] 15:02:00 Test Item Value Reference Range Comments TOTAL PROTEIN (BEAKER) 6.9 gm/dL 6.0-8.3 (test gvnf=010) ALBUMIN (BEAKER) (test 4.0 g/dL 3.5-5.0 hoeh=2915) ALKALINE PHOSPHATASE 42 U/L 40-150 (BEAKER) (test jeiw=041) BILIRUBIN TOTAL (BEAKER) 0.5 mg/dL 0.2-1.2 (test pjpj=369) SODIUM (BEAKER) (test 135 meq/L 136-145 vbtl=953) POTASSIUM (BEAKER) (test 4.3 meq/L 3.5-5.1 rjku=340) CHLORIDE (BEAKER) (test 99 meq/L 98-107 ltfu=899) CO2 (BEAKER) (test 25 meq/L 22-29 hdgl=248) BLOOD UREA NITROGEN 31 mg/dL 7-21 (BEAKER) (test dcwt=471) CREATININE (BEAKER) (test 1.39 mg/dL 0.57-1.25 tfap=448) GLUCOSE RANDOM (BEAKER) 194 mg/dL 70-105 (test kcfr=743) CALCIUM (BEAKER) (test 9.7 mg/dL 8.4-10.2 mjnq=957) AST (SGOT) (BEAKER) (test 12 U/L 5-34 lcto=655) ALT (SGPT) (BEAKER) (test 15 U/L 6-55 kkqm=982) EGFR (BEAKER) (test 48 mL/min/1.73 sq m ESTIMATED GFR IS NOT awol=7579) ACCURATE CREATININE CLEARANCE IN PREDICTING GLOMERULAR FILTRATION RATE. ESTIMATED GFR IS NOT APPLICABLE FOR DIALYSIS PATIENTS. PROTHROMBIN TIME/[id number] 14:58:00 Test Item Value Reference Range Comments PROTIME (BEAKER) (test jtyr=677) 12.8 seconds 11.7-14.7 INR (BEAKER) (test lbue=160) 1.0 <=5.9 RECOMMENDED COUMADIN/WARFARIN INR THERAPY RANGESSTANDARD DOSE: 2.0 - 3.0 Includes: PROPHYLAXIS forvenous thrombosis, systemic embolization; TREATMENT for venous thrombosis and/or pulmonary embolus.HIGH RISK: Target INR is 2.5-3.5 for patients with mechanical heart valves.CBC W/PLT COUNT & AUTO [id number] 14:45:00 Test Item Value Reference Range Comments WHITE BLOOD CELL COUNT (BEAKER) (test lprw=481) 10.3 K/ L 3.5-10.5 RED BLOOD CELL COUNT (BEAKER) (test mkbl=651) 4.35 M/ L 4.63-6.08 HEMOGLOBIN (BEAKER) (test xrfm=741) 11.9 GM/DL 13.7-17.5 HEMATOCRIT (BEAKER) (test rykb=081) 37.6 % 40.1-51.0 MEAN CORPUSCULAR VOLUME (BEAKER) (test wzoq=039) 86.4 fL 79.0-92.2 MEAN CORPUSCULAR HEMOGLOBIN (BEAKER) (test 27.4 pg 25.7-32.2 friz=413) MEAN CORPUSCULAR HEMOGLOBIN CONC (BEAKER) (test 31.6 GM/DL 32.3-36.5 zmlk=023) RED CELL DISTRIBUTION WIDTH (BEAKER) (test 16.5 % 11.6-14.4 iwbw=421) PLATELET COUNT (BEAKER) (test ziyw=809) 158 K/CU MM 150-450 MEAN PLATELET VOLUME (BEAKER) (test zkgn=139) 11.1 fL 9.4-12.4 NUCLEATED RED BLOOD CELLS (BEAKER) (test 0 /100 WBC 0-0 himt=591) NEUTROPHILS RELATIVE PERCENT (BEAKER) (test 73 % fyau=348) LYMPHOCYTES RELATIVE PERCENT (BEAKER) (test 19 % jgya=056) MONOCYTES RELATIVE PERCENT (BEAKER) (test 6 % rjmz=151) EOSINOPHILS RELATIVE PERCENT (BEAKER) (test 1 % kgrd=901) BASOPHILS RELATIVE PERCENT (BEAKER) (test 0 % owuq=979) NEUTROPHILS ABSOLUTE COUNT (BEAKER) (test 7.54 K/ L 1.78-5.38 yscj=087) LYMPHOCYTES ABSOLUTE COUNT (BEAKER) (test 1.96 K/ L 1.32-3.57 alqz=456) MONOCYTES ABSOLUTE COUNT (BEAKER) (test 0.61 K/ L 0.30-0.82 fqzb=335) EOSINOPHILS ABSOLUTE COUNT (BEAKER) (test 0.09 K/ L 0.04-0.54 cipv=714) BASOPHILS ABSOLUTE COUNT (BEAKER) (test 0.03 K/ L 0.01-0.08 olny=715) IMMATURE GRANULOCYTES-RELATIVE PERCENT (BEAKER) 1 % 0-1 (test krdb=2333) CT, CTA [id number] 12:54:00Addendum BeginsREPORT STATUS:A Addendum: I agree with the previously described non vascular findings.. Additionally, the lungs demonstrate fibrotic changes which are most pronounced in the bilateral bases. Biapical pleural-parenchymal scarring is present. Signed: Dejon BlandMDReport Verified Date/Time: 04/20/2018 12:54: 28 Reading Location: [place] [address] Angio Body Reading RoomAddendum EndsFINAL REPORT CT [...] SMA is well enhanced by contrast. The HAEYS is patent. There are two left renal [...] 5. An addendum will be dictated bythe Recordings Librarian Radiologist regarding the nonvascular findings. Signed: Puneet Espinoza MDReport Verified Date/Time: 14:19:03 Reading Location: [place] [address], CTA, [id number] 12:54:00Addendum BeginsREPORT STATUS:A Addendum: I agree with the previously described non vascular findings.. Additionally, the lungs demonstrate fibrotic changes which are most pronounced in the bilateral bases. Biapical pleural-parenchymal scarring is present. Signed : Dejon BlandMDReport Verified Date/Time: 04/20/2018 12:54:28 Reading Location: [place] [address] Angio Body Reading RoomAddendum EndsFINAL REPORT CT [...] For reference purpose, per [employer] broericka, recommendation are as follows: CT perimeter between [...] 5. An addendum will be dictated bythe Recordings Librarian Radiologist regarding the nonvascular findings. Signed: Puneet Espinoza Verified Date/Time: 14:19:03 Reading Location: [place] [address] Cardiology MRI POCT- [id number] 09:37:00 Test Item Value Reference Range Comments POC-CREATININE (KARMA) 1.3 mg/dL 0.6-1.[address] [facility] [address] [facility] (test hxpi=[id number]) [facility] [address] POC-EGFR (KARMA) (test 52 mL/min/1.73M2 ljrr=[id number])
[2019-04-30] MEDS ORDERED: LIDOCAINE 1% W/EPI 1:100,000 MDV 50 ML VIAL ONE (10:42)
[2019-04-30 11:53] LABS: RBC Red Blood Cell Count 3.57 M/uL (4.33-5.43)
[2019-04-30 11:54] LABS: Absolute Lymphocytes (CBC) 2.3 K/uL (0.7-4.9); Absolute Monocytes 0.5 K/uL (0.1-1.3); Absolute Neutrophil 10.8 K/uL (1.8-8.0); Basophils % 0.3 % (0-1.3); Eosinophils % 0.7 % (0-4.4); Lymphocytes % 16.7 % (15.3-44.8); MPV 9.1 fL (7.6-11.3); Monocytes % 3.8 % (3.3-12.3)
[2019-04-30 12:00] LABS: Protime INR 1.78
--- NOTE | 2019-04-30 12:22 | ER ---
Nurse's Notes [facility] Name: Victor Hugo Damon Age: 88 yrs Sex: Male : 1930 Arrival Date: 04/30/2019 Time: 10:00 Bed 8 Private MD: Diagnosis: Laceration without foreign body of right forearm Presentation: 04/30 10:00 Presenting complaint: EMS states: UNCONTROLLED BLEEDING SINCE R FA SURGERY ON bp THURSDAY. Transition of care: [facility]. Onset of symptoms is unknown. Risk Assessment: Do you want to hurt yourself or someone else? Patient reports no desire to harm self or others. Initial Sepsis Screen: Does the patient meet any 2 criteria? No. Patient's initial sepsis screen is negative. Does the patient have a suspected source of infection? No. Patient's initial sepsis screen is negative. Care prior to arrival: None. 10:00 Method Of Arrival: EMS: [facility] bp 10:00 Acuity: ESTHELA 3 bp Triage Assessment: 10:03 General: Appears in no apparent distress. comfortable, Behavior is calm, cooperative, bp appropriate for age. Pain: Complains of pain in right arm. EENT: No deficits noted. Neuro: Level of Consciousness is awake, alert, obeys commands, Oriented to person, place, time, situation, Appropriate for age. Cardiovascular: No deficits noted. Respiratory: Airway is patent Respiratory effort is even, unlabored, Respiratory pattern is regular, symmetrical. GI: No signs and/or symptoms were reported involving the gastrointestinal system. : No signs and/or symptoms were reported regarding the genitourinary system. Derm: No deficits noted. Musculoskeletal: Circulation, motion, and sensation intact. Injury Description: DRESSING OVER R FA SURGICAL WOUND. Historical: - Allergies: 10:03 PENICILLINS; bp - PMHx: 10:03 Atrial Fib; CAD; CVA; Diabetes - NIDDM; Hypertension; bp - Immunization history:: Adult Immunizations up to date. - Social history:: Smoking status: Patient/guardian denies using tobacco. - Ebola Screening: : No symptoms or risks identified at this time. Screenin:00 Abuse screen: Denies threats or abuse. Denies injuries from another. Nutritional bp screening: No deficits noted. Tuberculosis screening: No symptoms or risk factors identified. Fall Risk No fall in past 12 months (0 pts). Secondary diagnosis (15 points) CVA. Assessment: 10:00 General: SEE TRIAGE NOTE. bp 10:28 Reassessment: OLD DRESSING SATURATED WITH BLOOD. REMOVED WITH NATURAL REMEDY CONSULTANT AT [facility]. SLOW VENOUS bp OOZE NOTED FROM PRE-EXISTING SUTURED WOUND. 11:00 Reassessment: PROVIDER AT [facility] FOR LAC REPAIR. bp 12:47 Reassessment: PT D/C HOME. [facility] CONTACTED FOR TRANSPORT TO RETURN TO FACILITY. bp TRANSPORT EN ROUTE. 14:41 Reassessment: [facility] AT [facility] FOR TRANSPORT JAI. bp Vital Signs: 10:03 BP 134 / 66; Pulse 68; Resp 16; Temp 98; Pulse Ox 100% ; Weight 81.65 kg; bp 11:00 BP 134 / 58; Pulse 60; Resp 16; Pulse Ox 98% ; bp 12:49 BP 130 / 52; Pulse 66; Resp 14; Temp 98; Pulse Ox 100% ; bp ED Course: 10:00 Patient arrived in ED. bp 10:00 Patient has correct armband on for positive identification. Bed in low position. Call bp light in reach. Side rails up X2. 10:01 Triage completed. bp 10:02 Kathy Galvan FNP is PHCP. nh 10:02 Munir Garibay MD is Attending Physician. nh 10:03 Arm band placed on. bp 10:28 Jamari Dykes, LOLLY is Primary Nurse. bp 10:30 Wound care: to laceration located on right arm was cleaned with Hibiclens, DIRECT bp PRESSURE APPLIED. 11:06 Assist provider with laceration repair on right arm that was between 2.6 to 7.5 cm bp using sutures. Set up tray. Performed by Kathy VALLES Dressed with 4X4s, Patient tolerated well. 11:44 Inserted saline lock: 22 gauge in left antecubital area, using aseptic technique. Blood bp collected. 12:47 IV discontinued, intact, bleeding controlled, No redness/swelling at site. Pressure bp dressing applied. Administered Medications: No medications were administered Outcome: 12:22 Discharge ordered by . nh 12:50 Discharged to [facility]. Report called javier LOZANO AT [facility] bp 12:50 Condition: stable 12:50 Discharge instructions given to patient, [facility], Instructed on discharge instructions, follow up and referral plans. wound care, Demonstrated understanding of instructions, follow-up care, wound care. 14:42 Patient left the ED. bp Signatures: Kathy Galvan, SADDLE STITCHING MACHINE OPERATOR SADDLE STITCHING MACHINE OPERATOR Jamari Rodriguez, RN RN bp Corrections: (The following items were deleted from the chart) 10:31 10:30 Wound care: to laceration located on right arm was cleaned with Betadine, DIRECT bp PRESSURE APPLIED bp 11:03 11:02 Reassessment: IVF INFUSING. PO CHALLENGE SUCCESSFUL bp bp 11:06 11:00 BP 134 / 68; Pulse 84bpm; Resp 16bpm; Pulse Ox 98%; bp bp
--- NOTE | 2019-04-30 12:22 | EDPHYS ---
Physician Documentation [facility] Name: Victor Hugo Damon Age: 88 yrs Sex: Male : 1930 Arrival Date: 04/30/2019 Time: 10:00 Bed 8 Private MD: ED Physician Munir Garibay HPI: 04/30 11:15 This 88 yrs old Male presents to ER via EMS with complaints of Post Surgical nh Bleeding. 11:15 Onset: The symptoms/episode began/occurred 3 day(s) ago. Associated signs and symptoms: nh Pertinent positives: The patient does not have any pertinent positive signs or symptoms associated with pediatric illness. Modifying factors: The patient symptoms are alleviated by nothing, the patient symptoms are aggravated by nothing. The patient has not experienced similar symptoms in the past. The patient has not recently seen a physician. Patient had biopsy of right arm on thu. Patient is on blood thinners and his wound has been oozing since then. . Historical: - Allergies: 10:03 PENICILLINS; bp - PMHx: 10:03 Atrial Fib; CAD; CVA; Diabetes - NIDDM; Hypertension; bp - Immunization history:: Adult Immunizations up to date. - Social history:: Smoking status: Patient/guardian denies using tobacco. - Ebola Screening: : No symptoms or risks identified at this time. ROS: 12:17 Constitutional: Negative for fever, chills, and weight loss, Eyes: Negative for injury, nh pain, redness, and discharge, ENT: Negative for injury, pain, and discharge, Neck: Negative for injury, pain, and swelling, Cardiovascular: Negative for chest pain, palpitations, and edema, Respiratory: Negative for shortness of breath, cough, wheezing, and pleuritic chest pain, Abdomen/GI: Negative for abdominal pain, nausea, vomiting, diarrhea, and constipation, Back: Negative for injury and pain, : Negative for injury, bleeding, discharge, and swelling, MS/Extremity: Negative for injury and deformity, Neuro: Negative for headache, weakness, numbness, tingling, and seizure, Psych: Negative for depression, anxiety, suicide ideation, homicidal ideation, and hallucinations, Allergy/Immunology: Negative for hives, rash, and allergies, Endocrine: Negative for neck swelling, polydipsia, polyuria, polyphagia, and marked weight changes, Hematologic/Lymphatic: Negative for swollen nodes, abnormal bleeding, and unusual bruising. 12:17 Skin: Positive for laceration(s). Exam: 12:17 Constitutional: This is a well developed, well nourished patient who is awake, alert, nh and in no acute distress. Head/Face: Normocephalic, atraumatic. Eyes: Pupils equal round and reactive to light, extra-ocular motions intact. Lids and lashes normal. Conjunctiva and sclera are non-icteric and not injected. Cornea within normal limits. Periorbital areas with no swelling, redness, or edema. ENT: Nares patent. No nasal discharge, no septal abnormalities noted. Tympanic membranes are normal and external auditory canals are clear. Oropharynx with no redness, swelling, or masses, exudates, or evidence of obstruction, uvula midline. Mucous membranes moist. Neck: Trachea midline, no thyromegaly or masses palpated, and no cervical lymphadenopathy. Supple, full range of motion without nuchal rigidity, or vertebral point tenderness. No Meningismus. Chest/axilla: Normal chest wall appearance and motion. Nontender with no deformity. No lesions are appreciated. Cardiovascular: Regular rate and rhythm with a normal S1 and S2. No gallops, murmurs, or rubs. Normal PMI, no JVD. No pulse deficits. Respiratory: Lungs have equal breath sounds bilaterally, clear to auscultation and percussion. No rales, rhonchi or wheezes noted. No increased work of breathing, no retractions or nasal flaring. Abdomen/GI: Soft, non-tender, with normal bowel sounds. No distension or tympany. No guarding or rebound. No evidence of tenderness throughout. Back: No spinal tenderness. No costovertebral tenderness. Full range of motion. MS/ Extremity: Pulses equal, no cyanosis. Neurovascular intact. Full, normal range of motion. Neuro: Awake and alert, GCS 15, oriented to person, place, time, and situation. Cranial nerves II-XII grossly intact. Motor strength 5/5 in all extremities. Sensory grossly intact. Cerebellar exam normal. Normal gait. Psych: Awake, alert, with orientation to person, place and time. Behavior, mood, and affect are within normal limits. 12:17 Skin: Wound recheck: Patient had biopsy with sutured repair 4 days ago. Bleeding has not stopped from site. Sutured wound is dehissed. Vital Signs: 10:03 BP 134 / 66; Pulse 68; Resp 16; Temp 98; Pulse Ox 100% ; Weight 81.65 kg; bp 11:00 BP 134 / 58; Pulse 60; Resp 16; Pulse Ox 98% ; bp 12:49 BP 130 / 52; Pulse 66; Resp 14; Temp 98; Pulse Ox 100% ; bp Laceration: 12:17 Wound Repair of 3cm ( 1.2in ) subcutaneous laceration to right arm. Distal nh neuro/vascular/tendon intact. Anesthesia: Local anesthetic administered with 1 mls of 1% lidocaine w/ Epi. Wound prep: Moderate cleansing with hibiclenz. Skin closed with 4 4-0 Prolene using simple sutures and sterile technique. Patient tolerated well. MDM: 10:02 Patient medically screened. wa 12:17 Data reviewed: vital signs, nurses notes, lab test result(s), I have discussed the wa patient's presentation/case with the attending Emergency Department Physician; and as a result, I will discharge patient. Counseling: I had a detailed discussion with the patient and/or guardian regarding: the historical points, exam findings, and any diagnostic results supporting the discharge/admit diagnosis, lab results, the need for outpatient follow up, to return to the emergency department if symptoms worsen or persist or if there are any questions or concerns that arise at home. 04/30 11:25 Order name: CBC with Diff; Complete Time: 12:09 wa 04/30 11:25 Order name: CMP wa 04/30 11:25 Order name: PT-INR; Complete Time: 12:09 wa 04/30 11:25 Order name: Ptt, Activated; Complete Time: 12:09 wa Administered Medications: No medications were administered Disposition: 04/30/19 12:22 Discharged to Home. Impression: Laceration without foreign body of right forearm. - Condition is Stable. - Medication Reconciliation Form, Thank You Letter, Antibiotic Education, Prescription Opioid Use form. - Follow up: Private Physician; When: 5 - 6 days; Reason: Recheck today's complaints. - Problem is new. - Symptoms are unchanged. Addendum: 05/02/2019 06:52 Co-signature as Attending Physician, Munir Garibay MD I agree with the assessment and k plan of care. Signatures: Dispatcher [employer] EDMS Munir Garibay MD MD [facility] Kathy Galvan, EXERCISE PHYSIOLOGIST EXERCISE PHYSIOLOGIST Jamari Rodriguez, RN RN bp Corrections: (The following items were deleted from the chart) 04/30 14:42 12:22 04/30/2019 12:22 Discharged to Home. Impression: Laceration without foreign body bp of right forearm. Condition is Stable. Forms are Medication Reconciliation Form, Thank You Letter, Antibiotic Education, Prescription Opioid Use. Follow up: Private Physician; When: 5 - 6 days; Reason: Recheck today's complaints. Problem is new. Symptoms are unchanged. nh
[2019-04-30 12:25] LABS: Bilirubin Total 0.3 mg/dL (0.2-1.0); Potassium 4.2 mmol/L (3.5-5.1); Protein, Total 6.6 g/dL (6.4-8.2)
[2019-04-30 15:24] VITALS: TEMP 98
[2019-04-30 15:26] VITALS: BP 130/52; O2SAT 100
== END 2019-04-30 14:42 | disposition home or self-care (01) ==
LOC: ER 09:57
PROC: 0JQG0ZZ Repair Right Lower Arm Subcutaneous Tissue and Fascia, Open Approach (ICD-10-PCS; principal; 2019-04-30)
DX: S51.811A Laceration without foreign body of right forearm, initial encounter (principal); T81.31XA Disruption of external operation (surgical) wound, not elsewhere classified, initial encounter; Y83.8 Other surgical procedures as the cause of abnormal reaction of the patient, or of later complication, without mention of misadventure at the time of the procedure
CPT/HCPCS: 36415; 80053; 85025; 85610; 85730; 99284

== ENCOUNTER 2019-05-08 00:05 | Emergency (ER) | payer OTHER ==
--- OUTSIDE RECORDS SUMMARY | 2019-05-08 00:10 | XMS REPORT | Clinical Summary ---
:1930 [facility] Address [address] [place] [address] Care Team Providers Name Role Phone Pcp, [...] [facility] - MD Nelson IP PROC ONLY 05/19/2018 Anesthesia Event Johnson Peralta MD 05/19/2018 - Hospital Encounter Cardiology Cristobal Moreno Advanced age; 05/30/2018 MD Nelson Severe aortic stenosis 05/19/2018 Orders Only General Internal Medicine after 05/07/2018 Family History Medical History Relation Name Comments [...] Not on file Implants Implanted Type Area Staffing Coordinator Device Shelf Model / Identifier Expiration Date Serial / Lot Valve Heart Payton 3 26mm [id number] - [id number] Valves PASTRANA [employer] [id number] / Implanted: Qty: 1 on 05/19/2018 by Cristobal Moreno MD [id number] / Procedures Procedure Name Priority Date/Time Associated [...] 394 ms QTC Calculation(Bazett) 454 ms P [place] 23 degrees R [place] 29 degrees T [place] 194 degrees Sinus rhythm with marked sinus [...] 388 ms QTC Calculation(Bazett) 450 ms P [place] 52 degrees R [place] 28 degrees T [place] 136 degrees Normal sinus rhythm with sinus [...] 376 ms QTC Calculation(Bazett) 444 ms P [place] 56 degrees R [place] 23 degrees T [place] 138 degrees Sinus rhythm with Premature atrial [...] 380 ms QTC Calculation(Bazett) 452 ms R [place] 188 degrees T [place] 33 degrees Normal sinus rhythm with sinus [...] TAVR (CV ANES) DEVANTE Special Needs SCOT [phone]/SHAWN after 05/07/2018 Results RHYTHM STRIP - SCAN (06/01/2018 8:10 AM CDT) Narrative Performed At POC-Glucose meter (05/30/2018 8:21 AM CDT)Only the most recent of32 resultswithin the time period is included. POC-Glucose Meter 112 (H)Comment: TESTED AT 70 - 110 mg/dL [facility] [address] [place] [address] Specimen Blood Performing Organization Address [facility] [place] [address] DRAPER Prothrombin time/INR (05/30/2018 4:31 AM CDT)Only the most recent of7 resultswithin the time period is included. Protime 22.3 (H) 11.7 - 14.7 seconds [facility] INR 2.0 <=5.9 [facility] Specimen Blood Narrative Performed At [facility] RECOMMENDED COUMADIN/WARFARIN INR THERAPY RANGES STANDARD DOSE: 2.0 - 3.0 Includes: PROPHYLAXIS for venous thrombosis, systemic embolization; TREATMENT for venous thrombosis and/or pulmonary embolus. HIGH RISK: Target INR is 2.5-3.5 for patients with mechanical heart valves. Performing Organization Address [facility] Phone Number [address] [address] [phone] DRAPER CBC (Hemogram only) (05/30/2018 4:31 AM CDT)Only the most recent of8 resultswithin the time period is included. WBC 10.0 3.5 - 10.5 K/L [facility] RBC 3.44 (L) 4.63 - 6.08 M/L [facility] Hemoglobin 9.6 (L) 13.7 - 17.5 GM/DL [facility] Hematocrit 30.8 (L) 40.1 - 51.0 % [facility] MCV 89.5 79.0 - 92.2 fL [facility] MCH 27.9 25.7 - 32.2 pg [facility] MCHC 31.2 (L) 32.3 - 36.5 GM/DL [facility] RDW 16.1 (H) 11.6 - 14.4 % [facility] Platelets 169 150 - 450 K/CU MM [facility] MPV 11.5 9.4 - 12.4 fL [facility] nRBC 0 0 - 0 /100 WBC [facility] Specimen Blood Performing Organization Address City/State/Zipcode Phone Number [facility] [address] [place] [address] [phone] CENTER Basic Metabolic Panel (05/30/2018 4:31 AM CDT)Only the most recent of11 resultswithin the time period is included. Sodium 136 136 - 145 meq/L [facility] Potassium 3.7 3.5 - 5.1 meq/L [facility] Chloride 101 98 - 107 meq/L [facility] CO2 26 22 - 29 meq/L [facility] BUN 28 (H) 7 - 21 mg/dL [facility] Creatinine 1.31 (H) 0.57 - 1.25 mg/dL [facility] Glucose 74 70 - 105 mg/dL [facility] Calcium 8.9 8.4 - 10.2 mg/dL [facility] EGFR 52Comment: ESTIMATED GFR IS mL/min/1.73 sq m [facility] NOT ACCURATE [facility] CLEARANCE IN PREDICTING GLOMERULAR FILTRATION RATE. ESTIMATED GFR IS NOT APPLICABLE FOR DIALYSIS PATIENTS. Specimen Blood Performing Organization Address City/State/Zipcode Phone Number [facility] [address] [place] [address] CENTER Magnesium (05/28/2018 5:53 AM CDT)Only the most recent of9 resultswithin the time period is included. Magnesium 2.3 1.6 - 2.6 mg/dL [facility] Specimen Blood Performing Organization Address City/State/Zipcode Phone Number [facility] [address] [place] [address] CENTER Transfuse Leuko-Red RBC (05/26/2018 1:11 PM CDT)Only the most recent of2 resultswithin the time period is included.CBC with platelet count + automated diff (05/26/2018 6:27 AM CDT)Only the most recent of2 resultswithin the time period is included. WBC 12.2 (H) 3.5 - 10.5 K/L [facility] RBC 3.70 (L) 4.63 - 6.08 M/L [facility] Hemoglobin 10.6 (L) 13.7 - 17.5 GM/DL [facility] Hematocrit 33.2 (L) 40.1 - 51.0 % [facility] MCV 89.7 79.0 - 92.2 fL [facility] MCH 28.6 25.7 - 32.2 pg [facility] MCHC 31.9 (L) 32.3 - 36.5 GM/DL [facility] RDW 15.9 (H) 11.6 - 14.4 % [facility] Platelets 137 (L) 150 - 450 K/CU MM [facility] MPV 11.1 9.4 - 12.4 fL [facility] nRBC 0 0 - 0 /100 WBC [facility] % Neutros 54 % [facility] % Lymphs 33 % [facility] % Monos 8 % [facility] % Eos 3 % [facility] % Baso 0 % [facility] # Neutros 6.59 (H) 1.78 - 5.38 K/L [facility] # Lymphs 3.96 (H) 1.32 - 3.57 K/L [facility] # Monos 1.00 (H) 0.30 - 0.82 K/L [facility] # Eos 0.30 0.04 - 0.54 K/L [facility] # Baso 0.05 0.01 - 0.08 K/L [facility] Immature Granulocytes-Relative 2 (H) 0 - 1 % [facility] Specimen Blood Performing Organization Address City/State/Zipcode Phone Number [facility] [address] [place] [address] brain without IV contrast (05/25/2018 7:04 PM CDT)Only the most recent of2 resultswithin the time period is included. Specimen Narrative Performed At FINAL REPORT [facility] CT head without contrast 05/25/2018 7:14 [...] MD Report Verified Date/Time:05/25/2018 19:17:21 Reading Location: [facility] Radiology Reading Room Procedure Note Interface, [...] Report Verified Date/Time: 05/25/2018 19:17:21 Reading Location: [facility] Radiology Reading Room Performing Organization Address City/State/Zipcode Phone Number [facility] TRANSFUSION SERVICE REPORT - SCAN (05/25/2018 6:00 PM CDT)Only the most recent of3 resultswithin the time period is included. Narrative Performed At Prepare Leuko-Red RBC (05/24/2018 11:54 PM CDT) CROSSMATCH COMPATIBLE [place] Unit ABO O Pos [place] [place] UNIT NUMBER [id number] [place] Status TRANSFUSED [place] Blood Bank Product RED BLOOD CELLS [place] PRODUCT CODE [id number] [place] Specimen Other Performing Organization Address City/[facility] Phone Number [place] Type and screen, automated (05/23/2018 11:30 AM CDT) ABO/RH AUTOMATED (BEAKER) O POSITIVE [facility] Ab Scrn NEGATIVE [facility] Specimen Blood Performing Organization Address [facility] Phone Number [address] [address] [phone] aPTT (05/23/2018 6:15 AM CDT)Only the most recent of6 resultswithin the time period is included. PTT 94.3 (H) 22.5 - 36.0 seconds [facility] Specimen Blood Performing Organization Address [facility] Phone Number [address] [address] [phone] CENTER Iron, TIBC, % sat. (without ferritin) (05/23/2018 5:25 AM CDT) Iron 63 40 - 160 ug/dL [facility] TIBC 224 (L) 250 - 450 ug/dL [facility] Iron % Saturation 28 20 - 55 % [facility] Specimen Blood Performing Organization Address City/[facility] Phone Number [address] [address] [phone] CENTER Ferritin (05/23/2018 5:25 AM CDT) Ferritin 435 (H) 5 - 275 ng/mL [facility] Specimen Blood Performing Organization Address [facility] Phone Number [address] [address] CENTER ECG 12 lead (05/22/2018 1:56 PM CDT)Only the most recent of4 resultswithin the time period is included. Specimen Narrative Performed At Ventricular Rate 80 BPM GE MUSE Atrial Rate 80 BPM P-R Interval 164 ms QRS Duration 100 ms Q-T Interval 394 ms QTC Calculation(Bazett) 454 ms P [place] 23 degrees R [place] 29 degrees T [place] 194 degrees Sinus rhythm with marked sinus [...] 394 ms QTC Calculation(Bazett) 454 ms P [place] 23 degrees R [place] 29 degrees T [place] 194 degrees Sinus rhythm with marked sinus arrhythmia ST & T wave abnormality, consider inferolateral ischemia Abnormal ECG When compared with ECG of 20-MAY-2018 06:03, ST no longer depressed in Lateral leads T wave inversion now evident in Inferior leads T wave inversion now evident in Anterior leads Confirmed by MD TERESA, SHANE ([id number]) on 05/22/2018 2:20:53 PM Performing Organization Address City/State/[facility] Phone Number GE MUSE PT/aPTT (05/22/2018 2:19 AM CDT)Only the most recent of3 resultswithin the time period is included. Protime 15.0 (H) 11.7 - 14.7 seconds [facility] INR 1.2 <=5.9 [facility] PTT 179.7 (HH) 22.5 - 36.0 seconds [facility] Specimen Blood Narrative Performed At [facility] RECOMMENDED COUMADIN/WARFARIN INR THERAPY RANGES STANDARD DOSE: 2.0 - 3.0 Includes: PROPHYLAXIS for venous thrombosis, systemic embolization; TREATMENT for venous thrombosis and/or pulmonary embolus. HIGH RISK: Target INR is 2.5-3.5 for patients with mechanical heart valves. Performing Organization Address City/[facility]/Zipcode Phone Number [address] [address] [phone] CENTER Calcium, Ionized (05/22/2018 2:19 AM CDT)Only the most recent of2 resultswithin the time period is included. Calcium, Ion 1.15 1.12 - 1.27 mmol/L [facility] pH, Blood 7.40 [facility] Specimen Blood Performing Organization Address [facility] Phone Number [address] [address] CENTER Phosphorus (05/22/2018 2:19 AM CDT)Only the most recent of3 resultswithin the time period is included. Phosphorus 3.6 2.3 - 4.7 mg/dL [facility] Specimen Blood Performing Organization Address City/[facility] Phone Number [address] [address] CENTER Vancomycin level, random (05/22/2018 2:19 AM CDT) Vancomycin Rm 24.4 ug/mL [facility] Specimen Blood Narrative Performed At [facility] Reference Range: No Normals Performing Organization Address [facility] Phone Number [address] [address] [phone] CENTER MR brain without IV contrast (05/21/2018 11:53 AM CDT) Specimen Narrative Performed At FINAL REPORT [facility] MRI Brain without contrast Clinical History: Stroke [...] MD Report Verified Date/Time:05/21/2018 11:58:08 Reading Location: [address] Neuro Reading Room Procedure Note Interface, [...] Report Verified Date/Time: 05/21/2018 11:58:08 Reading Location: [address] Neuro Reading Room Performing Organization Address City/State/Zipcode Phone Number RIS MRA neck without IV contrast (05/21/2018 11:53 AM CDT) Specimen Narrative Performed At FINAL REPORT [facility] MRA Head and Neck CLINICAL HISTORY: Stroke TECHNIQUE: MRA of the head utilizing 3-D jvhn-yl-glhvly technique, with 3-D reconstructions. MRA of the neck utilizing 2-D and 3-D smgx-mh-ukonzk technique, with 3-D reconstructions. COMPARISON: None FINDINGS: There is no evidence for a cantwell of Gonzalez proximal branch vessel occlusion. There [...] vertebral arteries. IMPRESSION: No evidence for a cantwell of Gonzalez proximal branch vessel occlusion. No hemodynamically significant stenosis in the internal carotid arteries. 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 Signed: Jaycbo Alvarado MD Report Verified Date/Time:05/21/2018 12:04:26 Reading Location: [address] Neuro Reading Room Procedure Note Interface, External Ris In - 05/21/2018 12:06 PM CDT FINAL REPORT MRA Head and Neck CLINICAL HISTORY: Stroke TECHNIQUE: MRA of the head utilizing 3-D ngrv-jj-eaajpb technique, with 3-D reconstructions. MRA of the neck utilizing 2-D and 3-D jjot-kw-fydkiw technique, with 3-D reconstructions. COMPARISON: None FINDINGS: There is no evidence for a cantwell of Gonzalez proximal branch vessel occlusion. There [...] vertebral arteries. IMPRESSION: No evidence for a cantwell of Gonzalez proximal branch vessel occlusion. No hemodynamically significant stenosis in the internal carotid arteries. 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 Signed: Jaycob Alvarado MD Report Verified Date/Time: 05/21/2018 12:04:26 Reading Location: [address] Neuro Reading Room Performing Organization Address City/State/Zipcode Phone Number [facility] MRA head without IV contrast (05/21/2018 11:53 AM CDT) Specimen Narrative Performed At FINAL REPORT [facility] MRA Head and Neck CLINICAL HISTORY: Stroke TECHNIQUE: MRA of the head utilizing 3-D aaxl-ff-lguyel technique, with 3-D reconstructions. MRA of the neck utilizing 2-D and 3-D wutf-gy-ibjyil technique, with 3-D reconstructions. COMPARISON: None FINDINGS: There is no evidence for a cantwell of Gonzalez proximal branch vessel occlusion. There [...] vertebral arteries. IMPRESSION: No evidence for a cantwell of Gonzalez proximal branch vessel occlusion. No hemodynamically significant stenosis in the internal carotid arteries. 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 Signed: Jaycob Alvarado MD Report Verified Date/Time:05/21/2018 12:04:26 Reading Location: [address] Neuro Reading Room Procedure Note Interface, External Ris In - 05/21/2018 12:06 PM CDT FINAL REPORT MRA Head and Neck CLINICAL HISTORY: Stroke TECHNIQUE: MRA of the head utilizing 3-D jkge-ya-ltofxv technique, with 3-D reconstructions. MRA of the neck utilizing 2-D and 3-D ijrb-bt-cmipqz technique, with 3-D reconstructions. COMPARISON: None FINDINGS: There is no evidence for a cantwell of Gonzalez proximal branch vessel occlusion. There [...] vertebral arteries. IMPRESSION: No evidence for a cantwell of Gonzalez proximal branch vessel occlusion. No hemodynamically significant stenosis in the internal carotid arteries. 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 Signed: Jaycob Alvarado MD Report Verified Date/Time: 05/21/2018 12:04:26 Reading Location: [facility] C013V Neuro Reading Room Performing Organization Address City/State/Zipcode Phone Number [facility] XR chest 1 view portable / bedside (05/21/2018 7:27 AM CDT)Only the most recent of2 resultswithin the time period is included. Specimen Narrative Performed At FINAL REPORT GE i3 membrane Portable chest CLINICAL HISTORY: Hypoxemia. COMPARISON STUDY: May 19, 2018. FINDINGS: The cardiac silhouette is unremarkable. The patient is status post sternotomy and valve replacement. There are increased interstitial markings with atelectatic changes in the lung bases and costophrenic angle blunting. No pneumothorax is noted. Degenerative changes are seen. IMPRESSION: No significant change. Signed: Addy Zapata MD Report Verified Date/Time:05/21/2018 10:54:40 Reading Location: [facility] [id number] Ortho Consult Reading Room Procedure [...] Report Verified Date/Time: 05/21/2018 10:54:40 Reading Location: [facility] B1 C013X Ortho Consult Reading Room Performing Organization Address City/State/Zipcode Phone Number RIS TSH/Free T4 If Indicated (05/21/2018 2:59 AM CDT) TSH 0.77 0.35 - 4.94 uIU/mL [facility] Specimen Blood Performing Organization Address City/[facility]/Zipcode Phone Number [address] [address] CENTER Hemoglobin A1c (05/21/2018 2:59 AM CDT) Hemoglobin A1C 8.1 (H) 4.3 - 6.1 % [facility] Specimen Blood Performing Organization Address City/[facility]/Zipcode Phone Number [address] [address] CENTER Vitamin B12 (05/21/2018 2:59 AM CDT) Vitamin B12 692 213 - 816 pg/mL [facility] Specimen Blood Performing Organization Address City/[facility]/Zipcode Phone Number [address] [address] [phone] CENTER Lipid panel (05/21/2018 2:59 AM CDT) Triglycerides 348 mg/dL [facility] Cholesterol 208 mg/dL [facility] HDL 26 mg/dL [facility] LDL Calculated 112 mg/dL [facility] Specimen Blood Narrative Performed At [facility] Triglyceride Reference Range: Low Risk <150 [id number] High Risk 200-499 Very High Risk>=500 Cholesterol Reference Range: Low Risk <200 [id number] High Risk>240 HDL Cholesterol Reference Range: Low Risk >=60 High Risk <40 LDL Cholesterol Reference Range: Optimal<100 Near [id number] Jsshwokeot165-481 Fdyt544-475 Very High >=190 Performing Organization Address City/State/Zipcode Phone Number [facility]AN[facility] [address] [place] [address] [phone] CENTER ECHOCARDIOGRAM REPORT - SCAN (05/20/2018 6:50 PM CDT) Narrative Performed At CARDIAC CATH REPORT - SCAN (05/20/2018 3:41 PM CDT) Narrative Performed At EEG AWAKE AND DROWSY (05/20/2018 2:38 PM CDT) Specimen Narrative Performed At Date(s) of EE05/20/2018 GE RIS DATE OF REPORT: 05/20/2018 ACC: [id number] EEG Number: [id number] Test Location: Inpatient ICU Start time: 14:17 Stop time: 14:38 ICD-10: R56.9 CPT Code: 85664 HISTORY: 87 y.o. RHM w/ severe who [...] PGY5 Linette Choe MD Attending Neurophysiologist [facility] Procedure Note Interface, External Ris In - 05/20/2018 3:54 PM CDT Date(s) of EE05/20/2018 DATE OF REPORT: 05/20/2018 ACC: [id number] EEG Number: [id number] Test Location: Inpatient ICU Start time: 14:17 Stop time: 14:38 ICD-10: R56.9 CPT Code: 49553 HISTORY: 87 y.o. RHM w/ severe who [...] Fellow, PGY5 Linette Choe MD Attending Neurophysiologist [facility] [place] Performing Organization Address City/[facility]/Zipcode Phone Number GE RIS XR abdomen / KUB 1 view (05/20/2018 11:22 AM CDT) Specimen Narrative Performed At FINAL REPORT GE i3 membrane Abdomen one view INDICATION: Nasogastric tube insertion COMPARISON: None available IMPRESSION: NG tube extends to the gastric body. The imaged bowel gas pattern is nonspecific. There are degenerative spine changes and incidental vascular calcifications. The imaged chest is similar to 05/19/2018. Signed: Virgil Kraft MD Report Verified Date/Time:05/20/2018 11:33:02 Reading Location: [facility] Radiology Reading Room Procedure Note Interface, [...] Report Verified Date/Time: 05/20/2018 11:33:02 Reading Location: [facility] Radiology Reading Room Performing Organization Address [facility] Phone Number GE RIS Troponin I (05/20/2018 11:05 AM CDT)Only the most recent of2 resultswithin the time period is included. Troponin I 1.13 (HH) 0.00 - 0.03 ng/mL [facility] Specimen Blood Narrative Performed At [facility] Troponin I (TnI) levels must be interpreted [...] tachyarrhythmia. Performing Organization Address City/[facility] Phone Number [address] [address] [phone] DRAPER Lactic acid, venous, whole blood (05/20/2018 11:05 AM CDT) Lactate, Venous 2.1 0.5 - 2.2 mmol/L [facility] Specimen Blood Narrative Performed At [facility] Effective 04/02/2016: Units/Reference Range Change New: 0.5-2.2 mmol/LPrevious: 5-20 mg/dL Performing Organization Address [facility] Phone Number [address] [address] [phone] DRAPER Blood gas, venous (05/20/2018 11:05 AM CDT) pH, Phil 7.40 7.32 - 7.42 [facility] pCO2, Phil 45 41 - 51 mmHg [facility] pO2, Phil 26 25 - 40 mmHg [facility] O2 Sat, Phil 46.3 40.0 - 70.0 % [facility] HCO3, Phil 27 21 - 29 mmol/L [facility] Base Excess, Phil 1.8 -2.0 - 3.0 mmol/L [facility] Patient Temperature 36.9 C [facility] FIO2 36.0 % [facility] Specimen Blood Performing Organization Address City/[facility] Phone Number [facility] [address] [place] [address] DRAPER Creatine Kinase (CK), Total and MB (05/20/2018 11:05 AM CDT)Only the most recent of2 resultswithin the time period is included. Total CK 138 29 - 200 U/L [facility] CK-MB 4.2 0.0 - 6.6 ng/mL [facility] MB Relative Index 3.0 % [facility] Specimen Blood Narrative Performed At CK-MB Reference Range: [facility] <6.7Normal 6.7-10.0Borderline >10.0 Abnormal Performing Organization Address City/State/Zipcode Phone Number [facility] [address] [place], [place] [phone] DRAPER Comprehensive metabolic panel (05/20/2018 11:05 AM CDT) Protein, Total 5.7 (L) 6.0 - 8.3 gm/dL [facility] Albumin 3.4 (L) 3.5 - 5.0 g/dL [facility] Alkaline Phosphatase 42 40 - 150 U/L [facility] Total Bilirubin 0.8 0.2 - 1.2 mg/dL [facility] Sodium 139 136 - 145 meq/L [facility] Potassium 4.2 3.5 - 5.1 meq/L [facility] Chloride 100 98 - 107 meq/L [facility] CO2 23 22 - 29 meq/L [facility] BUN 38 (H) 7 - 21 mg/dL [facility] Creatinine 2.17 (H) 0.57 - 1.25 mg/dL [facility] Glucose 129 (H) 70 - 105 mg/dL [facility] Calcium 9.0 8.4 - 10.2 mg/dL [facility] AST 27 5 - 34 U/L [facility] ALT 14 6 - 55 U/L [facility] EGFR 29Comment: ESTIMATED GFR mL/min/1.73 sq m [facility] IS NOT ACCURATE [facility] CREATININE CLEARANCE IN PREDICTING GLOMERULAR FILTRATION RATE. ESTIMATED GFR IS NOT APPLICABLE FOR DIALYSIS PATIENTS. Specimen Blood Performing Organization Address City/State/Zipcode Phone Number [facility] [address] [place] [address] [phone] CENTER ECHOCARDIOGRAM REPORT - SCAN (05/20/2018 9:50 AM CDT) Narrative Performed At 2D Echo W/Doppler(CW/PW/Color) (05/20/2018 9:24 AM CDT) Ejection Fraction [facility]CHO [facility] Specimen Narrative Performed At Transthoracic Echocardiography Report (TTE) [facility] Demographics Patient Name Catherine SEXTON of Study 05/20/2018 RIOS [id number] GenderMale Visit Number [id number] Room Number 8A11 Number Date of Birth1930Referring Physician Cristobal Moreno MD Age87 year(s)Roguer Jamari Matute [facility] AnalystAlex Joaquin Bejarano Physician Procedure Type [...] Study 05/20/2018 RIOS Gender Male Visit Number [id number] Race Room Number 8A11 Number Date of 1930 Referring Physician Cristobal Moreno MD Age 87 year(s) Roguer Jamari 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 Interpreting Andrews Bejarano, Physician Procedure [...] (05/19/2018 11:32 PM CDT) Color, UA Yellow [facility] Clarity, UA Clear [facility] Specific [place], UA 1.017 1.001 - 1.035 [facility] pH, UA 5.0 5.0 - 8.0 [facility] Protein, UA Negative Negative [facility] Glucose, UA Negative Negative [facility] Ketones, UA Negative Negative [facility] Bilirubin, UA Negative Negative [facility] Blood, UA Small (A) Negative [facility] Nitrite, UA Negative Negative [facility] Leukocytes, UA Negative Negative [facility] Urobilinogen, UA 0.2 0.2 - 1.0 mg/dL [facility] RBC, UA 12 /HPF [facility] WBC, UA 1 /HPF [facility] Mucus Rare [facility] Amorphous Crystals Occasional [facility] Specimen Source Urine, [place] [facility] Specimen Urine Performing Organization Address City/[facility]/Zipcode Phone Number [facility] [address] [place] [address] CENTER Urine culture (05/19/2018 11:31 PM CDT) Result No growth [facility] Specimen Urine Performing Organization Address [facility] Phone Number [address] [phone] DRAPER Blood culture (05/19/2018 11:23 PM CDT)Only the most recent of2 resultswithin the time period is included. Result No growth in 5 days [facility] Specimen Blood Performing Organization Address [facility] Phone Number [address] [phone] DRAPER POC-Lactic Acid, Arterial (05/19/2018 9:17 PM CDT) POC-Lactic Acid, 1.5 (H)Comment: 0.4 - 1.3 mmol/L [facility] Arterial TESTED AT [address] [address] Specimen Blood Performing Organization Address [facility] Phone Number [address] [address] [phone] DRAPER POCT-HEMATOCRIT (05/19/2018 9:07 PM CDT) POC-Hematocrit 32 (L)Comment: TESTED AT 40 - 50 % [address] [address] Specimen Blood Performing Organization Address [facility] Phone Number [address] [phone] DRAPER POCT-HEMOGLOBIN (05/19/2018 9:07 PM CDT) POC-Hemoglobin 10.9 (L)Comment: TESTED AT 13.0 - 16.8 g/dL [address] [id number] AT [address] [address] Specimen Blood Performing Organization Address [facility] Phone Number [address] [address] [phone] DRAPER POCT-GLUCOSE (05/19/2018 9:07 PM CDT) POC-Glucose 152 (H)Comment: TESTED AT 70 - 110 mg/dL [address] [place] [address] Specimen Blood Performing Organization Address [facility] Phone Number [address] [address] DRAPER POC-Sodium (05/19/2018 9:07 PM CDT) POC-Sodium 137Comment: TESTED AT [facility] 135 - 148 meq/L [address] [address] Specimen Blood Performing Organization Address [facility] Phone Number [address] [address] [phone] DRAPER POC-Potassium (05/19/2018 9:07 PM CDT) POC-Potassium 3.6Comment: TESTED AT [facility] 3.6 - 5.5 meq/L [address] [address] Specimen Blood Performing Organization Address [facility] Phone Number [address] [address] DRAPER POC-Calcium ionized (05/19/2018 9:07 PM CDT) POC-Calcium Ionized 1.19Comment: TESTED AT 1.12 - 1.27 mmol/L [address] [address] Specimen Blood Performing Organization Address [facility] Phone Number [address] [address] [phone] DRAPER POC-Blood gases, arterial (05/19/2018 9:07 PM CDT) Temp. Celsius-POC 37.1 [facility] FIO2-POC 29Comment: TESTED AT [address] [address] pH, Arterial-POC 7.468 (H) 7.350 - 7.450 [facility] PCO2, Arterial-POC 34.4 (L) 35.0 - 45.0 mm Hg [facility] PO2, Arterial-POC 63.0 (L) 80.0 - 90.0 mm Hg [facility] SO2, Arterial-POC 93.0 (L) 96.0 - 97.0 % [facility] HCO3, Arterilal-POC 24.9 21.0 - 29.0 meq/L [facility] BE, Arterial-POC 1.0 -2.0 - 3.0 meq/L [facility] Specimen Blood Performing Organization Address City/State/Zipcode Phone Number [facility] [address] [place] [address] brain/stroke test design (05/19/2018 8:42 PM CDT) Specimen Narrative Performed At FINAL REPORT CrossCurrent CT head without contrast 05/19/2018 8:43 PM [...] Report Verified Date/Time: 05/19/2018 20:46:09 Reading Location: [facility] Radiology Reading Room Performing Organization Address City/State/[facility] Phone Number [facility] Prepare RBC (05/19/2018 10:47 AM CDT) CROSSMATCH COMPATIBLE SAFETRACE TX Unit ABO O Pos SAFETRACE TX UNIT NUMBER [id number] SAFETRACE TX Status RETURNED FROM ISSUE SAFETRACE TX Blood Bank Product RED BLOOD CELLS SAFETRACE TX PRODUCT CODE [id number] SAFETRACE TX CROSSMATCH COMPATIBLE SAFETRACE TX Unit ABO O Pos SAFETRACE TX UNIT NUMBER [id number] SAFETRACE TX Status RETURNED FROM ISSUE SAFETRACE TX Blood Bank Product RED BLOOD CELLS SAFETRACE TX PRODUCT CODE [id number] SAFETRACE TX CROSSMATCH COMPATIBLE SAFETRACE TX Unit ABO O Pos SAFETRACE TX UNIT NUMBER [id number] SAFETRACE TX Status RETURNED FROM ISSUE SAFETRACE TX Blood Bank Product RED BLOOD CELLS SAFETRACE TX PRODUCT CODE [id number] SAFETRACE TX CROSSMATCH COMPATIBLE SAFETRACE TX Unit ABO O Pos SAFETRACE TX UNIT NUMBER [id number] SAFETRACE TX Status RETURNED FROM ISSUE SAFETRACE TX Blood Bank Product RED BLOOD CELLS SAFETRACE TX PRODUCT CODE [id number] SAFETRACE TX Performing Organization Address [facility] Phone Number SAFETRACE TX POC ACTIVATED CLOTTING TIME (05/19/2018 8:59 AM CDT) Activated Clotting Time 329Comment: TESTED AT [address] [address] Specimen Blood Performing Organization Address [facility] Phone Number [address] [address] CENTER 2D Echo W/Doppler(CW/PW/Color) (05/19/2018 7:51 AM CDT) Ejection Fraction [facility] ECHO [facility] Specimen Narrative Performed At Transthoracic Echocardiography Report (TTE) [facility] ECHO [facility] Demographics Patient Name Catherine SEXTON of Study 05/19/2018 RIOS [id number] GenderMale Visit Number [id number] Room Number 8A11 Number Date of Birth1930Referring Physician Cristobal Moreno MD Age87 year(s)Roguer Afua Coombs [facility] InterpretingStep micaela Rucker, Physician MD Micheal [...] Study 05/19/2018 RIOS Gender Male Visit Number [id number] Race Room Number 8A11 Number Date of 1930 Referring Physician Cristobal Moreno MD Age 87 year(s) Roguer Afua Coombs [facility] Interpreting Lisa Rucker, Physician MD Micheal [...] Number [facility] ECHO HEART[facility] MKCKESSON CPACS after 05/07/2018 Insurance Payer Benefit Plan / Group Subscriber ID Type Phone Address MEDICARE MEDICARE A B xxxxxxxxxx Medicare AETNA - MGD CARE AETNA INDEMNITY NON CONTR xxxxxxxxxx Comm DR [address] ([place]) [address] [place] [address] Advance Directives For more information, please contact:[address] [phone] Code Status Date Activated Date Inactivated Comments Full Code 05/19/2018 5:27 AM 05/30/2018 5:08 PM This code status was determined by: Patient
--- OUTSIDE RECORDS SUMMARY | 2019-05-08 00:12 | XMS REPORT ---
:1930 [facility] Address [address] [place] [address] Care Team Providers Name Role Phone TONIE [...] (BEAKER) (test 112 mg/dL 70-110 TESTED AT [address] kodm=2439) [facility] [address] POCT-GLUCOSE [id number] 08:17:00 Test Item Value Reference Range Comments POC-GLUCOSE METER (BEAKER) 98 mg/dL 70-110 TESTED AT [address] (test ixtn=1699) [facility] [address] BASIC METABOLIC [id number] 06:16:00 Test Item Value Reference Range Comments SODIUM (BEAKER) (test 136 meq/L 136-145 jcvt=795) POTASSIUM (BEAKER) (test 3.7 meq/L 3.5-5.1 fkgg=687) CHLORIDE (BEAKER) (test 101 meq/L 98-107 dqqv=829) CO2 (BEAKER) (test 26 meq/L 22-29 hgcw=001) BLOOD UREA NITROGEN 28 mg/dL 7-21 (BEAKER) (test qrok=922) CREATININE (BEAKER) (test 1.31 mg/dL 0.57-1.25 hhxw=652) GLUCOSE RANDOM (BEAKER) 74 mg/dL 70-105 (test sqxp=054) CALCIUM (BEAKER) (test 8.9 mg/dL 8.4-10.2 booj=047) EGFR (BEAKER) (test 52 mL/min/1.73 sq m ESTIMATED GFR IS NOT nxzj=3287) ACCURATE CREATININE CLEARANCE IN PREDICTING GLOMERULAR FILTRATION RATE. ESTIMATED GFR IS NOT APPLICABLE FOR DIALYSIS PATIENTS. PROTHROMBIN [id number] 05:42:00 Test Item Value Reference Range Comments PROTIME (BEAKER) (test zhhp=699) 22.3 seconds 11.7-14.7 INR (BEAKER) (test golt=159) 2.0 <=5.9 RECOMMENDED COUMADIN/WARFARIN INR THERAPY RANGESSTANDARD DOSE: 2.0 - 3.0 Includes: PROPHYLAXIS forvenous thrombosis, systemic embolization; TREATMENT for venous thrombosis and/or pulmonary embolus.HIGH RISK: Target INR is 2.5-3.5 for patients with mechanical heart valves.CBC (HEMOGRAM ONLY)2018-05-30 05:34:00 Test Item Value Reference Range Comments WHITE BLOOD CELL COUNT (BEAKER) (test tljp=009) 10.0 K/ L 3.5-10.5 RED BLOOD CELL COUNT (BEAKER) (test qgwx=378) 3.44 M/ L 4.63-6.08 HEMOGLOBIN (BEAKER) (test pxat=121) 9.6 GM/DL 13.7-17.5 HEMATOCRIT (BEAKER) (test uknn=714) 30.8 % 40.1-51.0 MEAN CORPUSCULAR VOLUME (BEAKER) (test oaua=687) 89.5 fL 79.0-92.2 MEAN CORPUSCULAR HEMOGLOBIN (BEAKER) (test 27.9 pg 25.7-32.2 wcmq=125) MEAN CORPUSCULAR HEMOGLOBIN CONC (BEAKER) (test 31.2 GM/DL 32.3-36.5 aotg=164) RED CELL DISTRIBUTION WIDTH (BEAKER) (test 16.1 % 11.6-14.4 pgwn=590) PLATELET COUNT (BEAKER) (test wghq=299) 169 K/CU MM 150-450 MEAN PLATELET VOLUME (BEAKER) (test rqlg=828) 11.5 fL 9.4-12.4 NUCLEATED RED BLOOD CELLS (BEAKER) (test 0 /100 WBC 0-0 waix=247) POCT-GLUCOSE [id number] 21:35:00 Test Item Value Reference Range Comments POC-GLUCOSE METER (BEAKER) 203 mg/dL 70-110 TESTED AT [address] (test ufbd=9825) [facility] [address] POCT-GLUCOSE [id number] 16:47:00 Test Item Value Reference Range Comments POC-GLUCOSE METER (BEAKER) 177 mg/dL 70-110 TESTED AT [address] (test jxzu=7079) [facility] [address] POCT-GLUCOSE [id number] 12:17:00 Test Item Value Reference Range Comments POC-GLUCOSE METER (BEAKER) 139 mg/dL 70-110 TESTED AT [address] (test cksm=4466) [place] [id number] POCT-GLUCOSE [id number] 08:38:00 Test Item Value Reference Range Comments POC-GLUCOSE METER (BEAKER) 83 mg/dL 70-110 TESTED AT [address] (test ztmu=7057) [place] [address] PROTHROMBIN [id number] 06:39:00 Test Item Value Reference Range Comments PROTIME (BEAKER) (test vsxi=483) 23.6 seconds 11.7-14.7 INR (BEAKER) (test zrnc=208) 2.1 <=5.9 RECOMMENDED COUMADIN/WARFARIN INR THERAPY RANGESSTANDARD DOSE: 2.0 - 3.0 Includes: PROPHYLAXIS forvenous thrombosis, systemic embolization; TREATMENT for venous thrombosis and/or pulmonary embolus.HIGH RISK: Target INR is 2.5-3.5 for patients with mechanical heart valves.POCT-GLUCOSE [id number] 21:31:00 Test Item Value Reference Range Comments POC-GLUCOSE METER (BEAKER) 187 mg/dL 70-110 TESTED AT [address] (test swsx=9744) [facility] [address] POCT-GLUCOSE [id number] 11:55:00 Test Item Value Reference Range Comments POC-GLUCOSE METER (BEAKER) 250 mg/dL 70-110 TESTED AT [address] (test qpwm=2959) [place] [id number] POCT-GLUCOSE [id number] 07:55:00 Test Item Value Reference Range Comments POC-GLUCOSE METER (BEAKER) 156 mg/dL 70-110 TESTED AT [address] (test wsju=4622) [place] [address] [id number] 07:33:00 Test Item Value Reference Range Comments MAGNESIUM (BEAKER) (test axgd=583) 2.3 mg/dL 1.6-2.6 PROTHROMBIN [id number] 06:33:00 Test Item Value Reference Range Comments PROTIME (BEAKER) (test wcau=560) 20.3 seconds 11.7-14.7 INR (BEAKER) (test ncpg=229) 1.7 <=5.9 RECOMMENDED COUMADIN/WARFARIN INR THERAPY RANGESSTANDARD DOSE: 2.0 - 3.0 Includes: PROPHYLAXIS forvenous thrombosis, systemic embolization; TREATMENT for venous thrombosis and/or pulmonary embolus.HIGH RISK: Target INR is 2.5-3.5 for patients with mechanical heart valves.BASIC METABOLIC [id number] 21:18: 00 Test Item Value Reference Range Comments SODIUM (BEAKER) (test 137 meq/L 136-145 uhjo=930) POTASSIUM (BEAKER) (test 4.1 meq/L 3.5-5.1 iupc=987) CHLORIDE (BEAKER) (test 102 meq/L 98-107 ghov=582) CO2 (BEAKER) (test 26 meq/L 22-29 dyzu=115) BLOOD UREA NITROGEN 32 mg/dL 7-21 (BEAKER) (test ddvr=037) CREATININE (BEAKER) (test 1.30 mg/dL 0.57-1.25 azts=843) GLUCOSE RANDOM (BEAKER) 95 mg/dL 70-105 (test ultj=591) CALCIUM (BEAKER) (test 9.1 mg/dL 8.4-10.2 akdn=519) EGFR (BEAKER) (test 52 mL/min/1.73 sq m ESTIMATED GFR IS NOT vvrd=6177) ACCURATE CREATININE CLEARANCE IN PREDICTING GLOMERULAR FILTRATION RATE. ESTIMATED GFR IS NOT APPLICABLE FOR DIALYSIS PATIENTS. POCT-GLUCOSE [id number] 21:16:00 Test Item Value Reference Range Comments POC-GLUCOSE METER (BEAKER) 94 mg/dL 70-110 TESTED AT [facility] [address] (test zxyh=7990) [facility] [address] CBC (HEMOGRAM ONLY)2018-05-27 21:04:00 Test Item Value Reference Range Comments WHITE BLOOD CELL COUNT (BEAKER) (test ynna=809) 11.1 K/ L 3.5-10.5 RED BLOOD CELL COUNT (BEAKER) (test ysuh=009) 3.63 M/ L 4.63-6.08 HEMOGLOBIN (BEAKER) (test nfcn=189) 10.1 GM/DL 13.7-17.5 HEMATOCRIT (BEAKER) (test iteg=150) 32.6 % 40.1-51.0 MEAN CORPUSCULAR VOLUME (BEAKER) (test jwof=237) 89.8 fL 79.0-92.2 MEAN CORPUSCULAR HEMOGLOBIN (BEAKER) (test 27.8 pg 25.7-32.2 cwpd=078) MEAN CORPUSCULAR HEMOGLOBIN CONC (BEAKER) (test 31.0 GM/DL 32.3-36.5 dpgx=257) RED CELL DISTRIBUTION WIDTH (BEAKER) (test 15.9 % 11.6-14.4 tthm=473) PLATELET COUNT (BEAKER) (test skbi=061) 171 K/CU MM 150-450 MEAN PLATELET VOLUME (BEAKER) (test elrb=820) 11.4 fL 9.4-12.4 NUCLEATED RED BLOOD CELLS (BEAKER) (test 0 /100 WBC 0-0 wwtd=479) POCT-GLUCOSE [id number] 17:03:00 Test Item Value Reference Range Comments POC-GLUCOSE METER (BEAKER) 226 mg/dL 70-110 TESTED AT [address] (test dnpb=9784) [place] [id number] POCT-GLUCOSE [id number] 11:53:00 Test Item Value Reference Range Comments POC-GLUCOSE METER (BEAKER) 154 mg/dL 70-110 TESTED AT [address] (test ydxk=4993) [place] [address] POCT-GLUCOSE [id number] 07:58:00 Test Item Value Reference Range Comments POC-GLUCOSE METER (BEAKER) 78 mg/dL 70-110 TESTED AT [address] (test legw=1356) [place] [address] [id number] 06:27:00 Test Item Value Reference Range Comments MAGNESIUM (BEAKER) (test poxj=804) 2.1 mg/dL 1.6-2.6 PROTHROMBIN [id number] 05:53:00 Test Item Value Reference Range Comments PROTIME (BEAKER) (test mqym=558) 19.1 seconds 11.7-14.7 INR (BEAKER) (test kvuc=178) 1.6 <=5.9 RECOMMENDED COUMADIN/WARFARIN INR THERAPY RANGESSTANDARD DOSE: 2.0 - 3.0 Includes: PROPHYLAXIS forvenous thrombosis, systemic embolization; TREATMENT for venous thrombosis and/or pulmonary embolus.HIGH RISK: Target INR is 2.5-3.5 for patients with mechanical heart valves.POCT-GLUCOSE [id number] 21:34:00 Test Item Value Reference Range Comments POC-GLUCOSE METER (BEAKER) 221 mg/dL 70-110 TESTED AT [address] (test hxzz=0694) [place] [address] POCT-GLUCOSE [id number] 18:12:00 Test Item Value Reference Range Comments POC-GLUCOSE METER (BEAKER) 173 mg/dL 70-110 TESTED AT [address] (test gauy=2546) [place] [address] POCT-GLUCOSE [id number] 12:42:00 Test Item Value Reference Range Comments POC-GLUCOSE METER (BEAKER) 286 mg/dL 70-110 TESTED AT [address] (test tlvw=9091) [facility] [address] POCT-GLUCOSE [id number] 08:40:00 Test Item Value Reference Range Comments POC-GLUCOSE METER (BEAKER) 91 mg/dL 70-110 TESTED AT [address] (test logi=2675) [place] [id number] [id number] 07:52:00 Test Item Value Reference Range Comments MAGNESIUM (BEAKER) (test fkuu=015) 2.2 mg/dL 1.6-2.6 PROTHROMBIN [id number] 07:30:00 Test Item Value Reference Range Comments PROTIME (BEAKER) (test nxos=236) 15.1 seconds 11.7-14.7 INR (BEAKER) (test qlsh=944) 1.2 <=5.9 RECOMMENDED COUMADIN/WARFARIN INR THERAPY RANGESSTANDARD DOSE: 2.0 - 3.0 Includes: PROPHYLAXIS forvenous thrombosis, systemic embolization; TREATMENT for venous thrombosis and/or pulmonary embolus.HIGH RISK: Target INR is 2.5-3.5 for patients with mechanical heart valves.CBC W/PLT COUNT & AUTO [id number] 07:24:00 Test Item Value Reference Range Comments WHITE BLOOD CELL COUNT (BEAKER) (test bbst=227) 12.2 K/ L 3.5-10.5 RED BLOOD CELL COUNT (BEAKER) (test ljws=906) 3.70 M/ L 4.63-6.08 HEMOGLOBIN (BEAKER) (test awek=138) 10.6 GM/DL 13.7-17.5 HEMATOCRIT (BEAKER) (test avcv=695) 33.2 % 40.1-51.0 MEAN CORPUSCULAR VOLUME (BEAKER) (test izap=226) 89.7 fL 79.0-92.2 MEAN CORPUSCULAR HEMOGLOBIN (BEAKER) (test 28.6 pg 25.7-32.2 majb=728) MEAN CORPUSCULAR HEMOGLOBIN CONC (BEAKER) (test 31.9 GM/DL 32.3-36.5 phae=496) RED CELL DISTRIBUTION WIDTH (BEAKER) (test 15.9 % 11.6-14.4 zthn=770) PLATELET COUNT (BEAKER) (test hgcu=077) 137 K/CU MM 150-450 MEAN PLATELET VOLUME (BEAKER) (test eqgl=308) 11.1 fL 9.4-12.4 NUCLEATED RED BLOOD CELLS (BEAKER) (test 0 /100 WBC 0-0 edtm=785) NEUTROPHILS RELATIVE PERCENT (BEAKER) (test 54 % nysr=857) LYMPHOCYTES RELATIVE PERCENT (BEAKER) (test 33 % cfjh=657) MONOCYTES RELATIVE PERCENT (BEAKER) (test 8 % padt=984) EOSINOPHILS RELATIVE PERCENT (BEAKER) (test 3 % dzii=321) BASOPHILS RELATIVE PERCENT (BEAKER) (test 0 % bhas=693) NEUTROPHILS ABSOLUTE COUNT (BEAKER) (test 6.59 K/ L 1.78-5.38 yyhb=565) LYMPHOCYTES ABSOLUTE COUNT (BEAKER) (test 3.96 K/ L 1.32-3.57 bzjt=694) MONOCYTES ABSOLUTE COUNT (BEAKER) (test 1.00 K/ L 0.30-0.82 jreu=035) EOSINOPHILS ABSOLUTE COUNT (BEAKER) (test 0.30 K/ L 0.04-0.54 ylap=186) BASOPHILS ABSOLUTE COUNT (BEAKER) (test 0.05 K/ L 0.01-0.08 ywxw=420) IMMATURE GRANULOCYTES-RELATIVE PERCENT (BEAKER) 2 % 0-1 (test rpjx=9841) POCT-GLUCOSE [id number] 22:05:00 Test Item Value Reference Range Comments POC-GLUCOSE METER (BEAKER) 122 mg/dL 70-110 TESTED AT [facility] [address] (test ehkh=8698) [facility] [address] BASIC METABOLIC [id number] 21:48:00 Test Item Value Reference Range Comments SODIUM (BEAKER) (test 135 meq/L 136-145 zdco=240) POTASSIUM (BEAKER) (test 4.2 meq/L 3.5-5.1 afcm=213) CHLORIDE (BEAKER) (test 101 meq/L 98-107 bnrj=117) CO2 (BEAKER) (test 25 meq/L 22-29 rvzo=235) BLOOD UREA NITROGEN 27 mg/dL 7-21 (BEAKER) (test lgwg=080) CREATININE (BEAKER) (test 1.09 mg/dL 0.57-1.25 ijaa=081) GLUCOSE RANDOM (BEAKER) 139 mg/dL 70-105 (test lzdr=876) CALCIUM (BEAKER) (test 9.5 mg/dL 8.4-10.2 modj=435) EGFR (BEAKER) (test 64 mL/min/1.73 sq m ESTIMATED GFR IS NOT klas=9500) ACCURATE CREATININE CLEARANCE IN PREDICTING GLOMERULAR FILTRATION RATE. ESTIMATED GFR IS NOT APPLICABLE FOR DIALYSIS PATIENTS. CBC (HEMOGRAM ONLY)2018-05-25 21:37:00 Test Item Value Reference Range Comments WHITE BLOOD CELL COUNT (BEAKER) (test uxnu=742) 17.3 K/ L 3.5-10.5 RED BLOOD CELL COUNT (BEAKER) (test jjyz=778) 3.84 M/ L 4.63-6.08 HEMOGLOBIN (BEAKER) (test hiex=498) 11.0 GM/DL 13.7-17.5 HEMATOCRIT (BEAKER) (test izwc=845) 33.5 % 40.1-51.0 MEAN CORPUSCULAR VOLUME (BEAKER) (test avkh=962) 87.2 fL 79.0-92.2 MEAN CORPUSCULAR HEMOGLOBIN (BEAKER) (test 28.6 pg 25.7-32.2 rvzq=198) MEAN CORPUSCULAR HEMOGLOBIN CONC (BEAKER) (test 32.8 GM/DL 32.3-36.5 vfvh=780) RED CELL DISTRIBUTION WIDTH (BEAKER) (test 15.8 % 11.6-14.4 fkkd=002) PLATELET COUNT (BEAKER) (test xynx=322) 151 K/CU MM 150-450 MEAN PLATELET VOLUME (BEAKER) (test ecbj=789) 11.6 fL 9.4-12.4 NUCLEATED RED BLOOD CELLS (BEAKER) (test 0 /100 WBC 0-0 sqha=731) CT, BRAIN, WITHOUT [id number] 19:17:00FINAL REPORT CT head without contrast 05/25/2018 [...] Boykin Verified Date/Time: 2017 19:17:21 Reading Location: [facility] Radiology Reading Room Electronicallysigned by: MICHEAL BOYKIN M.D. on 05/25/2018 07:17 PMPOCT- GLUCOSE [id number] 17:10:00 Test Item Value Reference Range Comments POC-GLUCOSE METER (BEAKER) 186 mg/dL 70-110 TESTED AT [facility] [address] (test kevn=5000) [facility] [address] POCT-GLUCOSE [id number] 11:53:00 Test Item Value Reference Range Comments POC-GLUCOSE METER (BEAKER) 152 mg/dL 70-110 TESTED AT [facility] [address] (test omuu=7545) [facility] [address] POCT-GLUCOSE [id number] 08:24:00 Test Item Value Reference Range Comments POC-GLUCOSE METER (BEAKER) 126 mg/dL 70-110 TESTED AT [place] [id number] [facility] (test lwrb=1968) [facility] [address] BASIC METABOLIC [id number] 06:46:00 Test Item Value Reference Range Comments SODIUM (BEAKER) (test 137 meq/L 136-145 meui=793) POTASSIUM (BEAKER) (test 3.8 meq/L 3.5-5.1 Specimen slightly enfb=995) hemolyzed CHLORIDE (BEAKER) (test 101 meq/L 98-107 lnuy=173) CO2 (BEAKER) (test 25 meq/L 22-29 huzr=543) BLOOD UREA NITROGEN 26 mg/dL 7-21 (BEAKER) (test rwsb=412) CREATININE (BEAKER) (test 0.94 mg/dL 0.57-1.25 Specimen slightly jfky=449) hemolyzed GLUCOSE RANDOM (BEAKER) 110 mg/dL 70-105 (test ewlh=758) CALCIUM (BEAKER) (test 9.2 mg/dL 8.4-10.2 kbqk=292) EGFR (BEAKER) (test 76 mL/min/1.73 sq m ESTIMATED GFR IS NOT wtul=7334) ACCURATE CREATININE CLEARANCE IN PREDICTING GLOMERULAR FILTRATION RATE. ESTIMATED GFR IS NOT APPLICABLE FOR DIALYSIS PATIENTS. BLOOD [id number] 06:00:00 Test Item Value Reference Range Comments CULTURE (BEAKER) (test hxhm=1946) No growth in 5 days BLOOD [id number] 06:00:00 Test Item Value Reference Range Comments CULTURE (BEAKER) (test yixb=4295) No growth in 5 days [id number] 05:50:00 Test Item Value Reference Range Comments MAGNESIUM (BEAKER) (test 2.3 mg/dL 1.6-2.6 Specimen slightly hemolyzed qoyy=035) PROTHROMBIN [id number] 05:44:00 Test Item Value Reference Range Comments PROTIME (BEAKER) (test fril=438) 13.8 seconds 11.7-14.7 INR (BEAKER) (test qbro=107) 1.1 <=5.9 RECOMMENDED COUMADIN/WARFARIN INR THERAPY RANGESSTANDARD DOSE: 2.0 - 3.0 Includes: PROPHYLAXIS forvenous thrombosis, systemic embolization; TREATMENT for venous thrombosis and/or pulmonary embolus.HIGH RISK: Target INR is 2.5-3.5 for patients with mechanical heart valves.POCT-GLUCOSE [id number] 22:35:00 Test Item Value Reference Range Comments POC-GLUCOSE METER (BEAKER) 216 mg/dL 70-110 TESTED AT [address] (test qdmi=6728) [place] [id number] POCT-GLUCOSE [id number] 17:10:00 Test Item Value Reference Range Comments POC-GLUCOSE METER (BEAKER) 240 mg/dL 70-110 TESTED AT [address] (test vykx=3832) [place] [address] POCT-GLUCOSE [id number] 12:11:00 Test Item Value Reference Range Comments POC-GLUCOSE METER (BEAKER) 172 mg/dL 70-110 TESTED AT [address] (test lvkh=8280) [place] [address] [id number] 04:19:00 Test Item Value Reference Range Comments MAGNESIUM (BEAKER) (test satq=433) 2.2 mg/dL 1.6-2.6 BASIC METABOLIC [id number] 04:19:00 Test Item Value Reference Range Comments SODIUM (BEAKER) (test 140 meq/L 136-145 geeh=380) POTASSIUM (BEAKER) (test 3.6 meq/L 3.5-5.1 fxxo=982) CHLORIDE (BEAKER) (test 105 meq/L 98-107 zisy=221) CO2 (BEAKER) (test 28 meq/L 22-29 eofe=580) BLOOD UREA NITROGEN 33 mg/dL 7-21 (BEAKER) (test koig=016) CREATININE (BEAKER) (test 0.96 mg/dL 0.57-1.25 iwke=131) GLUCOSE RANDOM (BEAKER) 128 mg/dL 70-105 (test bvui=099) CALCIUM (BEAKER) (test 9.0 mg/dL 8.4-10.2 hfgv=566) EGFR (BEAKER) (test 74 mL/min/1.73 sq m ESTIMATED GFR IS NOT etug=4995) ACCURATE CREATININE CLEARANCE IN PREDICTING GLOMERULAR FILTRATION RATE. ESTIMATED GFR IS NOT APPLICABLE FOR DIALYSIS PATIENTS. PROTHROMBIN [id number] 03:49:00 Test Item Value Reference Range Comments PROTIME (BEAKER) (test vhnv=648) 13.8 seconds 11.7-14.7 INR (BEAKER) (test hwsa=924) 1.1 <=5.9 RECOMMENDED COUMADIN/WARFARIN INR THERAPY RANGESSTANDARD DOSE: 2.0 - 3.0 Includes: PROPHYLAXIS forvenous thrombosis, systemic embolization; TREATMENT for venous thrombosis and/or pulmonary embolus.HIGH RISK: Target INR is 2.5-3.5 for patients with mechanical heart valves.While on warfarin.CBC (HEMOGRAM ONLY) 2018-05-24 03:43:00 Test Item Value Reference Range Comments WHITE BLOOD CELL COUNT (BEAKER) (test hpxw=778) 8.8 K/ L 3.5-10.5 RED BLOOD CELL COUNT (BEAKER) (test spes=288) 3.23 M/ L 4.63-6.08 HEMOGLOBIN (BEAKER) (test ciqp=892) 9.2 GM/DL 13.7-17.5 HEMATOCRIT (BEAKER) (test rbqm=731) 28.5 % 40.1-51.0 MEAN CORPUSCULAR VOLUME (BEAKER) (test uiol=220) 88.2 fL 79.0-92.2 MEAN CORPUSCULAR HEMOGLOBIN (BEAKER) (test 28.5 pg 25.7-32.2 yfua=643) MEAN CORPUSCULAR HEMOGLOBIN CONC (BEAKER) (test 32.3 GM/DL 32.3-36.5 nwyh=432) RED CELL DISTRIBUTION WIDTH (BEAKER) (test 15.0 % 11.6-14.4 xuiz=883) PLATELET COUNT (BEAKER) (test mewo=111) 87 K/CU MM 150-450 MEAN PLATELET VOLUME (BEAKER) (test astb=702) 11.6 fL 9.4-12.4 NUCLEATED RED BLOOD CELLS (BEAKER) (test 0 /100 WBC 0-0 kvpl=228) POCT-GLUCOSE [id number] 23:13:00 Test Item Value Reference Range Comments POC-GLUCOSE METER (BEAKER) 170 mg/dL 70-110 TESTED AT [address] (test jgbw=8516) [facility] [address] POCT-GLUCOSE [id number] 17:11:00 Test Item Value Reference Range Comments POC-GLUCOSE METER (BEAKER) 290 mg/dL 70-110 TESTED AT [address] (test dgfl=8242) [facility] [address] CT, BRAIN, WITHOUT [id number] 15:31:00Reason for exam:->Cerebral embolizationWhat is the patient's [...] Boykin Verified Date/Time: 05/23/2018 15:31:32 Reading Location: [address] Neuro Reading Room POCT-GLUCOSE [id number] 12:34:00 Test Item Value Reference Range Comments POC-GLUCOSE METER (BEAKER) 204 mg/dL 70-110 TESTED AT [address] (test kpcp=0755) [facility] [address] [id number] 08:24:00 Test Item Value Reference Range Comments FERRITIN (BEAKER) (test qrrp=878) 435 ng/mL 5-275 POCT-GLUCOSE [id number] 08:21:00 Test Item Value Reference Range Comments POC-GLUCOSE METER (BEAKER) 134 mg/dL 70-110 TESTED AT [facility] [address] (test afkq=5264) [facility] [address] IRON, TIBC, % SAT. (WITHOUT FERRITIN)2018-05-23 07:34:00 Test Item Value Reference Range Comments IRON (BEAKER) (test bbba=899) 63 ug/dL 40-160 TOTAL IRON BINDING CAPACITY (BEAKER) (test 224 ug/dL 250-450 qpgo=440) IRON % SATURATION (2) (BEAKER) (test afiw=2972) 28 % 20-55 [id number] 06:45:00 Test Item Value Reference Range Comments PARTIAL THROMBOPLASTIN TIME (BEAKER) (test 94.3 seconds 22.5-36.0 qddk=613) [id number] 06:05:00 Test Item Value Reference Range Comments MAGNESIUM (BEAKER) (test fxzb=933) 2.3 mg/dL 1.6-2.6 BASIC METABOLIC [id number] 06:05:00 Test Item Value Reference Range Comments SODIUM (BEAKER) (test 138 meq/L 136-145 mlom=365) POTASSIUM (BEAKER) (test 3.5 meq/L 3.5-5.1 snhm=500) CHLORIDE (BEAKER) (test 102 meq/L 98-107 owbz=070) CO2 (BEAKER) (test 27 meq/L 22-29 yhwh=745) BLOOD UREA NITROGEN 38 mg/dL 7-21 (BEAKER) (test blzd=177) CREATININE (BEAKER) (test 1.16 mg/dL 0.57-1.25 viaf=004) GLUCOSE RANDOM (BEAKER) 118 mg/dL 70-105 (test pihg=300) CALCIUM (BEAKER) (test 8.9 mg/dL 8.4-10.2 tnga=934) EGFR (BEAKER) (test 60 mL/min/1.73 sq m ESTIMATED GFR IS NOT qrgr=0196) ACCURATE CREATININE CLEARANCE IN PREDICTING GLOMERULAR FILTRATION RATE. ESTIMATED GFR IS NOT APPLICABLE FOR DIALYSIS PATIENTS. CBC (HEMOGRAM ONLY)2018-05-23 05:55:00 Test Item Value Reference Range Comments WHITE BLOOD CELL COUNT (BEAKER) (test smkb=776) 9.8 K/ L 3.5-10.5 RED BLOOD CELL COUNT (BEAKER) (test qtcb=909) 2.77 M/ L 4.63-6.08 HEMOGLOBIN (BEAKER) (test uxvm=062) 7.7 GM/DL 13.7-17.5 HEMATOCRIT (BEAKER) (test znpn=451) 24.0 % 40.1-51.0 MEAN CORPUSCULAR VOLUME (BEAKER) (test marm=636) 86.6 fL 79.0-92.2 MEAN CORPUSCULAR HEMOGLOBIN (BEAKER) (test 27.8 pg 25.7-32.2 twrr=711) MEAN CORPUSCULAR HEMOGLOBIN CONC (BEAKER) (test 32.1 GM/DL 32.3-36.5 bzgu=279) RED CELL DISTRIBUTION WIDTH (BEAKER) (test 15.9 % 11.6-14.4 lqgf=820) PLATELET COUNT (BEAKER) (test qgka=468) 74 K/CU MM 150-450 MEAN PLATELET VOLUME (BEAKER) (test bujs=383) 11.8 fL 9.4-12.4 NUCLEATED RED BLOOD CELLS (BEAKER) (test 0 /100 WBC 0-0 drzx=733) [id number] 23:49:00 Test Item Value Reference Range Comments PARTIAL THROMBOPLASTIN TIME (BEAKER) (test 82.0 seconds 22.5-36.0 cctv=975) POCT-GLUCOSE [id number] 22:25:00 Test Item Value Reference Range Comments POC-GLUCOSE METER (BEAKER) 212 mg/dL 70-110 TESTED AT [address] (test vsca=3211) [place] [id number] 21:32:00 Test Item Value Reference Range Comments PARTIAL THROMBOPLASTIN TIME (BEAKER) (test 131.6 seconds 22.5-36.0 teuu=122) POCT-GLUCOSE [id number] 17:58:00 Test Item Value Reference Range Comments POC-GLUCOSE METER (BEAKER) 296 mg/dL 70-110 TESTED AT [address] (test hpln=0504) [place] [id number] 14:27:00 Test Item Value Reference Range Comments PARTIAL THROMBOPLASTIN TIME (BEAKER) (test 96.3 seconds 22.5-36.0 njut=750) URINE [id number] 12:50:00 Test Item Value Reference Range Comments CULTURE (BEAKER) (test wzjw=8999) No growth [id number] 12:49:00 Test Item Value Reference Range Comments PARTIAL THROMBOPLASTIN TIME (BEAKER) (test 150.3 seconds 22.5-36.0 eiql=151) [id number] 05:53:00 Test Item Value Reference Range Comments PARTIAL THROMBOPLASTIN TIME (BEAKER) (test 44.1 seconds 22.5-36.0 jmzx=421) [id number] 03:32:00 Test Item Value Reference Range Comments PROTIME (BEAKER) (test jmmb=579) 15.0 seconds 11.7-14.7 INR (BEAKER) (test pjkf=017) 1.2 <=5.9 PARTIAL THROMBOPLASTIN TIME (BEAKER) (test 179.7 seconds 22.5-36.0 mxlx=346) RECOMMENDED COUMADIN/WARFARIN INR THERAPY RANGESSTANDARD DOSE: 2.0 - 3.0 Includes: PROPHYLAXIS forvenous thrombosis, systemic embolization; TREATMENT for venous thrombosis and/or pulmonary embolus.HIGH RISK: Target INR is 2.5-3.5 for patients with mechanical heart valves.[id number] 02:54:00 Test Item Value Reference Range Comments PHOSPHORUS (BEAKER) (test zxrc=254) 3.6 mg/dL 2.3-4.7 [id number] 02:54:00 Test Item Value Reference Range Comments MAGNESIUM (BEAKER) (test zhwm=845) 2.4 mg/dL 1.6-2.6 BASIC METABOLIC [id number] 02:54:00 Test Item Value Reference Range Comments SODIUM (BEAKER) (test 138 meq/L 136-145 rnxp=385) POTASSIUM (BEAKER) (test 3.7 meq/L 3.5-5.1 smrl=217) CHLORIDE (BEAKER) (test 101 meq/L 98-107 qrrg=955) CO2 (BEAKER) (test 27 meq/L 22-29 rhza=080) BLOOD UREA NITROGEN 44 mg/dL 7-21 (BEAKER) (test kdah=879) CREATININE (BEAKER) (test 1.30 mg/dL 0.57-1.25 egrm=189) GLUCOSE RANDOM (BEAKER) 131 mg/dL 70-105 (test peea=646) CALCIUM (BEAKER) (test 8.9 mg/dL 8.4-10.2 hmrm=952) EGFR (BEAKER) (test 52 mL/min/1.73 sq m ESTIMATED GFR IS NOT hylq=5673) ACCURATE CREATININE CLEARANCE IN PREDICTING GLOMERULAR FILTRATION RATE. ESTIMATED GFR IS NOT APPLICABLE FOR DIALYSIS PATIENTS. VANCOMYCIN LEVEL, [id number] 02:53:00 Test Item Value Reference Range Comments VANCOMYCIN RANDOM (BEAKER) (test tbvp=552) 24.4 ug/mL Reference Range: No NormalsCALCIUM, [id number] 02:49:00 Test Item Value Reference Range Comments CALCIUM IONIZED (BEAKER) (test gsiq=686) 1.15 mmol/L 1.12-1.27 PH, BLOOD (BEAKER) (test lnmv=1962) 7.40 CBC (HEMOGRAM ONLY)2018-05-22 02:29:00 Test Item Value Reference Range Comments WHITE BLOOD CELL COUNT (BEAKER) (test sgcj=378) 13.9 K/ L 3.5-10.5 RED BLOOD CELL COUNT (BEAKER) (test tfhb=144) 2.94 M/ L 4.63-6.08 HEMOGLOBIN (BEAKER) (test mrgz=320) 8.3 GM/DL 13.7-17.5 HEMATOCRIT (BEAKER) (test ukjk=940) 25.5 % 40.1-51.0 MEAN CORPUSCULAR VOLUME (BEAKER) (test oqjz=652) 86.7 fL 79.0-92.2 MEAN CORPUSCULAR HEMOGLOBIN (BEAKER) (test 28.2 pg 25.7-32.2 ejyb=048) MEAN CORPUSCULAR HEMOGLOBIN CONC (BEAKER) (test 32.5 GM/DL 32.3-36.5 fvov=155) RED CELL DISTRIBUTION WIDTH (BEAKER) (test 15.9 % 11.6-14.4 qlgv=396) PLATELET COUNT (BEAKER) (test feho=781) 67 K/CU MM 150-450 MEAN PLATELET VOLUME (BEAKER) (test xwux=060) 11.8 fL 9.4-12.4 NUCLEATED RED BLOOD CELLS (BEAKER) (test 0 /100 WBC 0-0 dgbf=286) [id number] 00:28:00 Test Item Value Reference Range Comments PROTIME (BEAKER) (test cpfs=635) 15.9 seconds 11.7-14.7 INR (BEAKER) (test iofx=192) 1.3 <=5.9 PARTIAL THROMBOPLASTIN TIME (BEAKER) (test 170.7 seconds 22.5-36.0 ompy=423) RECOMMENDED COUMADIN/WARFARIN INR THERAPY RANGESSTANDARD DOSE: 2.0 - 3.0 Includes: PROPHYLAXIS forvenous thrombosis, systemic embolization; TREATMENT for venous thrombosis and/or pulmonary embolus.HIGH RISK: Target INR is 2.5-3.5 for patients with mechanical heart valves.BASIC METABOLIC [id number] 13:37: 00 Test Item Value Reference Range Comments SODIUM (BEAKER) (test 139 meq/L 136-145 loft=880) POTASSIUM (BEAKER) (test 3.8 meq/L 3.5-5.1 iqbp=329) CHLORIDE (BEAKER) (test 101 meq/L 98-107 vjcn=716) CO2 (BEAKER) (test 26 meq/L 22-29 xmmq=096) BLOOD UREA NITROGEN 46 mg/dL 7-21 (BEAKER) (test qrwx=271) CREATININE (BEAKER) (test 1.60 mg/dL 0.57-1.25 vrkd=328) GLUCOSE RANDOM (BEAKER) 160 mg/dL 70-105 (test csmz=856) CALCIUM (BEAKER) (test 9.1 mg/dL 8.4-10.2 dttg=371) EGFR (BEAKER) (test 41 mL/min/1.73 sq m ESTIMATED GFR IS NOT xpji=3315) ACCURATE CREATININE CLEARANCE IN PREDICTING GLOMERULAR FILTRATION RATE. ESTIMATED GFR IS NOT APPLICABLE FOR DIALYSIS PATIENTS. MR, MRA, BRAIN, WITHOUT [id number] 12:04:00Reason for exam:-> Ischemic Stroke EvaluationFINAL REPORT MRA Head and Neck CLINICAL HISTORY: Stroke TECHNIQUE: MRA of thehead utilizing 3-D qrml-eo-zvbyuz technique, with 3-D reconstructions.MRA of the neck utilizing 2-D and 3-D time- of-flight technique, with 3-D reconstructions. COMPARISON: None FINDINGS: There is no evidence for a [place] of [place] proximal branch vessel occlusion. There [...] vertebral arteries. IMPRESSION: No evidence for a [place] of [place] proximal branchvessel occlusion. No hemodynamically significant stenosis in the internal carotid arteries. 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 Signed: Jaycob Alvarado Verified Date/Time: 05/21/2018 12:04:26 Reading Location: [address] Neuro Reading Room MR, MRA, NECK, WITHOUT IV [id number] 12:04:00Reason for exam:->Ischemic Stroke EvaluationFINAL REPORT MRA Head and Neck CLINICAL HISTORY: Stroke TECHNIQUE: MRA of thehead utilizing 3-D tcnf-de-twwhph technique, with 3-D reconstructions.MRA of the neck utilizing 2-D and 3-D mtem-pl-utyrlw technique, with 3-D reconstructions. COMPARISON: None FINDINGS: There is no evidence for a [place] of [place] proximal branch vessel occlusion. There [...] vertebral arteries. IMPRESSION: No evidence for a [place] of [place] proximal branchvessel occlusion. No hemodynamically significant stenosis in the internal carotid arteries. 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 Signed: Jaycob Alvarado Verified Date/Time: 05/21/2018 12:04:26 Reading Location: [address] Neuro Reading Room MR, BRAIN, WITHOUT [id number] 11:58:00Reason for exam:->Ischemic Stroke EvaluationFINAL REPORT MRI [...] Alvarado Verified Date/Time: 05/21/2018 11:58:08 Reading Location: [address] Neuro Reading Room RAD, CHEST, 1 VIEW, NON [id number] 10:54:00Reason for exam:->hypoxemiaShould this be performed at [...] MDReport Verified Date/Time: 05/21/2018 10:54:40 Reading Location: [facility] B1 C013X Ortho Consult Reading Room HEMOGLOBIN [id number] 08:30:00 Test Item Value Reference Range Comments HEMOGLOBIN A1C (BEAKER) (test ytyw=364) 8.1 % 4.3-6.1 LIPID [id number] 07:31:00 Test Item Value Reference Range Comments TRIGLYCERIDES (BEAKER) (test gieg=161) 348 mg/dL CHOLESTEROL (BEAKER) (test ramv=172) 208 mg/dL HDL CHOLESTEROL (BEAKER) (test rxvp=208) 26 mg/dL LDL CHOLESTEROL CALCULATED (BEAKER) (test 112 mg/dL lbgm=345) Triglyceride Reference Range: Low Risk <150 Borderline 150- 199 High Risk 200-499 Very High Risk >=500Cholesterol Reference Range: Low Risk <200 Borderline 200-239 High Risk > 240HDL Cholesterol Reference Range: Low Risk >=60 High Risk <40LDL Cholesterol Reference Range: Optimal <100 Near Optimal 100-129 Borderline 130-159 High 160-189 Very High >=[id number] 04:49:00 Test Item Value Reference Range Comments PHOSPHORUS (BEAKER) (test xbab=030) 6.4 mg/dL 2.3-4.7 [id number] 04:49:00 Test Item Value Reference Range Comments MAGNESIUM (BEAKER) (test ymbt=508) 2.3 mg/dL 1.6-2.6 BASIC METABOLIC [id number] 04:49:00 Test Item Value Reference Range Comments SODIUM (BEAKER) (test 139 meq/L 136-145 ruyn=467) POTASSIUM (BEAKER) (test 3.8 meq/L 3.5-5.1 bjpa=996) CHLORIDE (BEAKER) (test 102 meq/L 98-107 buho=580) CO2 (BEAKER) (test 23 meq/L 22-29 ebrw=862) BLOOD UREA NITROGEN 49 mg/dL 7-21 (BEAKER) (test qnls=679) CREATININE (BEAKER) (test 1.96 mg/dL 0.57-1.25 nfyu=388) GLUCOSE RANDOM (BEAKER) 175 mg/dL 70-105 (test kyvj=538) CALCIUM (BEAKER) (test 8.7 mg/dL 8.4-10.2 mdsk=397) EGFR (BEAKER) (test 33 mL/min/1.73 sq m ESTIMATED GFR IS NOT auyw=6378) ACCURATE CREATININE CLEARANCE IN PREDICTING GLOMERULAR FILTRATION RATE. ESTIMATED GFR IS NOT APPLICABLE FOR DIALYSIS PATIENTS. VITAMIN [id number] 04:11:00 Test Item Value Reference Range Comments VITAMIN B12 (BEAKER) (test dfeb=624) 692 pg/mL 213-816 TSH/FREE T4 IF [id number] 04:11:00 Test Item Value Reference Range Comments THYROID STIMULATING HORMONE (BEAKER) (test 0.77 uIU/mL 0.35-4.94 ikdv=585) CALCIUM, [id number] 03:53:00 Test Item Value Reference Range Comments CALCIUM IONIZED (BEAKER) (test amnr=784) 1.12 mmol/L 1.12-1.27 PH, BLOOD (BEAKER) (test lbyi=8275) 7.35 CBC (HEMOGRAM ONLY)2018-05-21 03:16:00 Test Item Value Reference Range Comments WHITE BLOOD CELL COUNT (BEAKER) (test vkez=746) 16.4 K/ L 3.5-10.5 RED BLOOD CELL COUNT (BEAKER) (test vszk=286) 3.61 M/ L 4.63-6.08 HEMOGLOBIN (BEAKER) (test upeh=233) 10.1 GM/DL 13.7-17.5 HEMATOCRIT (BEAKER) (test gize=433) 32.2 % 40.1-51.0 MEAN CORPUSCULAR VOLUME (BEAKER) (test kytu=247) 89.2 fL 79.0-92.2 MEAN CORPUSCULAR HEMOGLOBIN (BEAKER) (test 28.0 pg 25.7-32.2 gfvj=120) MEAN CORPUSCULAR HEMOGLOBIN CONC (BEAKER) (test 31.4 GM/DL 32.3-36.5 pwfs=619) RED CELL DISTRIBUTION WIDTH (BEAKER) (test 16.1 % 11.6-14.4 rdie=079) PLATELET COUNT (BEAKER) (test rhvk=953) 81 K/CU MM 150-450 MEAN PLATELET VOLUME (BEAKER) (test muon=654) 11.0 fL 9.4-12.4 NUCLEATED RED BLOOD CELLS (BEAKER) (test 0 /100 WBC 0-0 gnwv=956) EEG AWAKE AND [id number] 15:54:00Reason for exam:->AMSDate(s) of EEDATE OF REPORT: 05/20/2018ACC: [id number] Number: [id number] Location : Inpatient ICUStart time: 14:17Stop time: 14:38ICD-10: R56.9CPT Code: 44553 HISTORY: 87 y.o. RHM w/ severe who [...] focus.. Ammar Alobaidy, MDNeurophysiology Fellow, PGY5 [facility] NeurophysiologistCHI [facility] [place] POCT- GLUCOSE [id number] 13:52:00 Test Item Value Reference Range Comments POC-GLUCOSE METER (BEAKER) 163 mg/dL 70-110 TESTED AT [facility] [address] (test phxq=2159) [facility] [address] TROPONIN [id number] 11:59:00 Test Item Value Reference Range Comments TROPONIN I (BEAKER) (test mqip=406) 1.13 ng/mL 0.00-0.03 Troponin I (TnI) levels [...] acute neurological disease, and persistent tachyarrhythmia.COMPREHENSIVE METABOLIC [id number] 11:47:00 Test Item Value Reference Range Comments TOTAL PROTEIN (BEAKER) 5.7 gm/dL 6.0-8.3 (test ieem=678) ALBUMIN (BEAKER) (test 3.4 g/dL 3.5-5.0 irxi=1846) ALKALINE PHOSPHATASE 42 U/L 40-150 (BEAKER) (test esqm=462) BILIRUBIN TOTAL (BEAKER) 0.8 mg/dL 0.2-1.2 (test rudx=343) SODIUM (BEAKER) (test 139 meq/L 136-145 xesk=772) POTASSIUM (BEAKER) (test 4.2 meq/L 3.5-5.1 qwcp=986) CHLORIDE (BEAKER) (test 100 meq/L 98-107 vqgh=134) CO2 (BEAKER) (test 23 meq/L 22-29 rohr=783) BLOOD UREA NITROGEN 38 mg/dL 7-21 (BEAKER) (test emtm=263) CREATININE (BEAKER) (test 2.17 mg/dL 0.57-1.25 kcrq=383) GLUCOSE RANDOM (BEAKER) 129 mg/dL 70-105 (test oyge=879) CALCIUM (BEAKER) (test 9.0 mg/dL 8.4-10.2 arza=760) AST (SGOT) (BEAKER) (test 27 U/L 5-34 mssh=347) ALT (SGPT) (BEAKER) (test 14 U/L 6-55 zzep=723) EGFR (BEAKER) (test 29 mL/min/1.73 sq m ESTIMATED GFR IS NOT qepf=3311) ACCURATE CREATININE CLEARANCE IN PREDICTING GLOMERULAR FILTRATION RATE. ESTIMATED GFR IS NOT APPLICABLE FOR DIALYSIS PATIENTS. CREATINE KINASE (CK), TOTAL AND [id number] 11:42:00 Test Item Value Reference Range Comments CREATINE KINASE TOTAL (BEAKER) (test wrqb=381) 138 U/L 29-200 CREATINE KINASE-MB (BEAKER) (test cfzb=936) 4.2 ng/mL 0.0-6.6 CREATINE KINASE-MB INDEX (BEAKER) (test ntew=510) 3.0 % CK-MB Reference Range:<6.7 Normal6.7-10.0 Borderline>10.0 [id number] 11:36:00 Test Item Value Reference Range Comments PHOSPHORUS (BEAKER) (test gdmv=120) 5.4 mg/dL 2.3-4.7 [id number] 11:36:00 Test Item Value Reference Range Comments MAGNESIUM (BEAKER) (test gofb=480) 2.3 mg/dL 1.6-2.6 RAD, ABDOMEN/KUB, 1 VIEW [id number] 11:33:00Reason for exam:->Nasogastric tube insertionShould this be performed at the bedside?->YesFINAL REPORT Abdomen one view INDICATION: Nasogastric tube insertion COMPARISON: None available IMPRESSION: NG tube extends to the gastric body. The imaged bowel gas pattern is nonspecific. There are degenerative spine changes and incidental vascular calcifications. The imaged chest is similar to 2017. Signed: Kenan Motteport Verified Date/Time: 05/20/2018 11: 33:02 Reading Location: [facility] Radiology Reading Room LACTIC ACID, VENOUS, WHOLE [id number] 11:32:00 Test Item Value Reference Range Comments LACTATE BLOOD VENOUS (2) (BEAKER) (test 2.1 mmol/L 0.5-2.2 etgz=5806) Effective 04/02/2016: Units/Reference Range ChangeNew: 0.5-2.2 mmol/L Previous: 5 -20 mg/dLBLOOD GAS, [id number] 11:21:00 Test Item Value Reference Range Comments PH VENOUS (BEAKER) (test csrd=488) 7.40 7.32-7.42 PCO2 VENOUS (BEAKER) (test etsf=238) 45 mmHg 41-51 PO2 VENOUS (BEAKER) (test rnid=534) 26 mmHg 25-40 O2 SATURATION VENOUS (BEAKER) (test xkgb=344) 46.3 % 40.0-70.0 HCO3 VENOUS (BEAKER) (test iryt=149) 27 mmol/L 21-29 BASE EXCESS VENOUS (BEAKER) (test itlu=793) 1.8 mmol/L -2.0-3.0 PATIENT TEMPERATURE (BEAKER) (test vnym=4133) 36.9 C FIO2 (BEAKER) (test mtfm=5283) 36.0 % BASIC METABOLIC [id number] 05:05:00 Test Item Value Reference Range Comments SODIUM (BEAKER) (test 140 meq/L 136-145 shni=219) POTASSIUM (BEAKER) (test 3.9 meq/L 3.5-5.1 Specimen slightly ukrc=664) hemolyzed CHLORIDE (BEAKER) (test 105 meq/L 98-107 kugu=597) CO2 (BEAKER) (test 21 meq/L 22-29 anti=714) BLOOD UREA NITROGEN 31 mg/dL 7-21 (BEAKER) (test mpjx=098) CREATININE (BEAKER) (test 1.63 mg/dL 0.57-1.25 Specimen slightly ugvo=396) hemolyzed GLUCOSE RANDOM (BEAKER) 124 mg/dL 70-105 (test jcii=420) CALCIUM (BEAKER) (test 8.0 mg/dL 8.4-10.2 wdsp=318) EGFR (BEAKER) (test 40 mL/min/1.73 sq m ESTIMATED GFR IS NOT grly=4251) ACCURATE CREATININE CLEARANCE IN PREDICTING GLOMERULAR FILTRATION RATE. ESTIMATED GFR IS NOT APPLICABLE FOR DIALYSIS PATIENTS. CBC (HEMOGRAM ONLY)2018-05-20 04:44:00 Test Item Value Reference Range Comments WHITE BLOOD CELL COUNT (BEAKER) (test tsos=434) 16.5 K/ L 3.5-10.5 RED BLOOD CELL COUNT (BEAKER) (test aczr=569) 3.86 M/ L 4.63-6.08 HEMOGLOBIN (BEAKER) (test ubij=994) 10.6 GM/DL 13.7-17.5 HEMATOCRIT (BEAKER) (test wvpc=467) 34.3 % 40.1-51.0 MEAN CORPUSCULAR VOLUME (BEAKER) (test fcgh=825) 88.9 fL 79.0-92.2 MEAN CORPUSCULAR HEMOGLOBIN (BEAKER) (test 27.5 pg 25.7-32.2 uabf=551) MEAN CORPUSCULAR HEMOGLOBIN CONC (BEAKER) (test 30.9 GM/DL 32.3-36.5 gcza=628) RED CELL DISTRIBUTION WIDTH (BEAKER) (test 16.2 % 11.6-14.4 gjpx=588) PLATELET COUNT (BEAKER) (test bkid=433) 103 K/CU MM 150-450 MEAN PLATELET VOLUME (BEAKER) (test ffbn=798) 11.2 fL 9.4-12.4 NUCLEATED RED BLOOD CELLS (BEAKER) (test 0 /100 WBC 0-0 iavj=512) URINALYSIS W/ [id number] 00:09:00 Test Item Value Reference Range Comments COLOR (BEAKER) (test vbfb=486) Yellow CLARITY (BEAKER) (test vupa=793) Clear SPECIFIC GRAVITY UA (BEAKER) (test cqyc=330) 1.017 1.001-1.035 PH UA (BEAKER) (test ydqw=299) 5.0 5.0-8.0 PROTEIN UA (BEAKER) (test vkuh=606) Negative Negative GLUCOSE UA (BEAKER) (test jqys=697) Negative Negative KETONES UA (BEAKER) (test mdos=495) Negative Negative BILIRUBIN UA (BEAKER) (test yjay=489) Negative Negative BLOOD UA (BEAKER) (test akvj=924) Small Negative NITRITE UA (BEAKER) (test osiq=464) Negative Negative LEUKOCYTE ESTERASE UA (BEAKER) (test smob=196) Negative Negative UROBILINOGEN UA (BEAKER) (test ouxl=902) 0.2 mg/dL 0.2-1.0 RBC UA (BEAKER) (test qhhq=116) 12 /HPF WBC UA (BEAKER) (test mcwr=618) 1 /HPF MUCUS (BEAKER) (test csxf=1374) Rare AMORPHOUS CRYSTALS (BEAKER) (test tfky=3137) Occasional SOURCE(BEAKER) (test munx=8802) Urine, [place] RAD, CHEST, 1 VIEW, NON [id number] 21:46:00Reason for exam:->tavrShould this be performed at the bedside?->YesFINAL REPORT INDICATION: tavr COMPARISON: None. TECHNIQUE: Chest radiograph, single view, portable technique. 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 Intact median sternotomy wires noted. No pulmonary edema, aspiration, pneumothorax, or pleural effusion demonstrated. Signed: Vladislav Michael MDReport Verified Date/Time: 05/19/2018 21:46:23 Reading Location: [address] Consult Reading Room POCT-LACTIC ACID, [id number] 21:21:00 Test Item Value Reference Range Comments POC-LACTIC ACID, ARTERIAL 1.5 mmol/L 0.4-1.3 TESTED AT [address] (BEAKER) (test eynk=7148) [facility] [address] POCT-BLOOD GASES, [id number] 21:21:00 Test Item Value Reference Range Comments TEMP, CELSIUS-POC (BEAKER) 37.1 (test yiss=5233) FIO2-POC (BEAKER) (test 29 TESTED AT [address] mgxg=1517) [facility] [address] PH, ARTERIAL-POC (BEAKER) 7.468 7.350-7.450 (test drux=9247) PCO2, ARTERIAL-POC (BEAKER) 34.4 mm Hg 35.0-45.0 (test nwuy=9633) PO2, ARTERIAL-POC (BEAKER) 63.0 mm Hg 80.0-90.0 (test rsoj=7534) SO2, ARTERIAL-POC (BEAKER) 93.0 % 96.0-97.0 (test kyke=7477) HCO3, ARTERIAL-POC (BEAKER) 24.9 meq/L 21.0-29.0 (test umyx=8512) BASE EXCESS, ARTERIAL-POC 1.0 meq/L -2.0-3.0 (BEAKER) (test uuce=6264) [id number] 21:21:00 Test Item Value Reference Range Comments POC-SODIUM (BEAKER) (test 137 meq/L 135-148 TESTED AT [address] glja=0787) [place] [address] [id number] 21:21:00 Test Item Value Reference Range Comments POC-POTASSIUM (BEAKER) (test 3.6 meq/L 3.6-5.5 TESTED AT [address] pqjt=9797) [place] [address] [id number] 21:21:00 Test Item Value Reference Range Comments POC-GLUCOSE (BEAKER) (test 152 mg/dL 70-110 TESTED AT [address] pawy=5942) [place] [address] POCT-CALCIUM [id number] 21:21:00 Test Item Value Reference Range Comments POC-CALCIUM IONIZED (BEAKER) 1.19 mmol/L 1.12-1.27 TESTED AT [address] (test uynx=2855) [place] [address] [id number] 21:21:00 Test Item Value Reference Range Comments POC-HEMATOCRIT (BEAKER) (test 32 % 40-50 TESTED AT [address] fvis=8903) [place] [address] [id number] 21:21:00 Test Item Value Reference Range Comments POC-HEMOGLOBIN (BEAKER) 10.9 g/dL 13.0-16.8 TESTED AT [address] (test ehei=9073) [place] [address]TESTED AT [place] [address] TROPONIN [id number] 20:56:00 Test Item Value Reference Range Comments TROPONIN I (BEAKER) (test qwnk=357) 0.73 ng/mL 0.00-0.03 Troponin I (TnI) levels [...] and persistent tachyarrhythmia.CREATINE KINASE (CK), TOTAL AND [id number] 20:49:00 Test Item Value Reference Range Comments CREATINE KINASE TOTAL (BEAKER) (test atxy=890) 41 U/L 29-200 CREATINE KINASE-MB (BEAKER) (test eurs=957) 3.5 ng/mL 0.0-6.6 CREATINE KINASE-MB INDEX (BEAKER) (test ywho=055) 8.5 % CK-MB Reference Range:<6.7 Normal6.7-10.0 Borderline>10.0 AbnormalCT, BRAIN/STROKE [id number] 20:46:00Reason for exam:-> altered mental statusFINAL REPORT [...] Boykin Verified Date/Time: 05/19/2018 20:46:09 Reading Location: [facility] Radiology Reading Room BASI METABOLIC [id number] 20: 42:00 Test Item Value Reference Range Comments SODIUM (BEAKER) (test 138 meq/L 136-145 cfhl=075) POTASSIUM (BEAKER) (test 3.8 meq/L 3.5-5.1 hvoq=434) CHLORIDE (BEAKER) (test 100 meq/L 98-107 ckta=826) CO2 (BEAKER) (test 26 meq/L 22-29 ygqi=726) BLOOD UREA NITROGEN 27 mg/dL 7-21 (BEAKER) (test yuje=360) CREATININE (BEAKER) (test 1.41 mg/dL 0.57-1.25 wlmq=490) GLUCOSE RANDOM (BEAKER) 146 mg/dL 70-105 (test indz=187) CALCIUM (BEAKER) (test 8.7 mg/dL 8.4-10.2 jnkw=479) EGFR (BEAKER) (test 48 mL/min/1.73 sq m ESTIMATED GFR IS NOT omhl=6909) ACCURATE CREATININE CLEARANCE IN PREDICTING GLOMERULAR FILTRATION RATE. ESTIMATED GFR IS NOT APPLICABLE FOR DIALYSIS PATIENTS. [id number] 20:32:00 Test Item Value Reference Range Comments PROTIME (BEAKER) (test xozb=666) 14.2 seconds 11.7-14.7 INR (BEAKER) (test inpm=081) 1.1 <=5.9 PARTIAL THROMBOPLASTIN TIME (BEAKER) (test 31.4 seconds 22.5-36.0 nsze=999) RECOMMENDED COUMADIN/WARFARIN INR THERAPY RANGESSTANDARD DOSE: 2.0 - 3.0 Includes: PROPHYLAXIS forvenous thrombosis, systemic embolization; TREATMENT for venous thrombosis and/or pulmonary embolus.HIGH RISK: Target INR is 2.5-3.5 for patients with mechanical heart valves.CBC W/PLT COUNT & AUTO [id number] 20:30:00 Test Item Value Reference Range Comments WHITE BLOOD CELL COUNT (BEAKER) (test isnz=915) 12.5 K/ L 3.5-10.5 RED BLOOD CELL COUNT (BEAKER) (test qzae=052) 3.77 M/ L 4.63-6.08 HEMOGLOBIN (BEAKER) (test gngv=464) 10.4 GM/DL 13.7-17.5 HEMATOCRIT (BEAKER) (test zywe=947) 34.1 % 40.1-51.0 MEAN CORPUSCULAR VOLUME (BEAKER) (test psif=320) 90.5 fL 79.0-92.2 MEAN CORPUSCULAR HEMOGLOBIN (BEAKER) (test 27.6 pg 25.7-32.2 qdkx=985) MEAN CORPUSCULAR HEMOGLOBIN CONC (BEAKER) (test 30.5 GM/DL 32.3-36.5 qepj=895) RED CELL DISTRIBUTION WIDTH (BEAKER) (test 16.4 % 11.6-14.4 uive=790) PLATELET COUNT (BEAKER) (test jjvb=376) 116 K/CU MM 150-450 MEAN PLATELET VOLUME (BEAKER) (test xtut=989) 10.6 fL 9.4-12.4 NUCLEATED RED BLOOD CELLS (BEAKER) (test 0 /100 WBC 0-0 dfkd=123) NEUTROPHILS RELATIVE PERCENT (BEAKER) (test 74 % qrlu=198) LYMPHOCYTES RELATIVE PERCENT (BEAKER) (test 18 % paro=772) MONOCYTES RELATIVE PERCENT (BEAKER) (test 6 % hngq=778) EOSINOPHILS RELATIVE PERCENT (BEAKER) (test 1 % qwgk=149) BASOPHILS RELATIVE PERCENT (BEAKER) (test 0 % ynmt=568) NEUTROPHILS ABSOLUTE COUNT (BEAKER) (test 9.27 K/ L 1.78-5.38 njaz=417) LYMPHOCYTES ABSOLUTE COUNT (BEAKER) (test 2.24 K/ L 1.32-3.57 ncql=918) MONOCYTES ABSOLUTE COUNT (BEAKER) (test 0.73 K/ L 0.30-0.82 fybz=253) EOSINOPHILS ABSOLUTE COUNT (BEAKER) (test 0.13 K/ L 0.04-0.54 ynve=189) BASOPHILS ABSOLUTE COUNT (BEAKER) (test 0.03 K/ L 0.01-0.08 sojo=033) IMMATURE GRANULOCYTES-RELATIVE PERCENT (BEAKER) 1 % 0-1 (test gafn=5293) POCT-GLUCOSE [id number] 20:01:00 Test Item Value Reference Range Comments POC-GLUCOSE METER (BEAKER) 182 mg/dL 70-110 TESTED AT [facility] [address] (test spdu=7487) [facility] [address] [id number] 09:06:00 Test Item Value Reference Range Comments ACTIVATED CLOTTING TIME 329 sec TESTED AT [facility] [address] (BEAKER) (test duxw=075) [facility] [id number] B-TYPE NATRIURETIC FACTOR (BNP)2018-04-21 15:09:00 Test Item Value Reference Range Comments B-TYPE NATRIURETIC PEPTIDE (BEAKER) (test 785 pg/mL 0-100 tfqy=942) COMPREHENSIVE METABOLIC [id number] 15:02:00 Test Item Value Reference Range Comments TOTAL PROTEIN (BEAKER) 6.9 gm/dL 6.0-8.3 (test hmiy=856) ALBUMIN (BEAKER) (test 4.0 g/dL 3.5-5.0 skjs=2773) ALKALINE PHOSPHATASE 42 U/L 40-150 (BEAKER) (test tawj=667) BILIRUBIN TOTAL (BEAKER) 0.5 mg/dL 0.2-1.2 (test eltj=557) SODIUM (BEAKER) (test 135 meq/L 136-145 qple=294) POTASSIUM (BEAKER) (test 4.3 meq/L 3.5-5.1 vbwz=885) CHLORIDE (BEAKER) (test 99 meq/L 98-107 beaa=596) CO2 (BEAKER) (test 25 meq/L 22-29 gyla=075) BLOOD UREA NITROGEN 31 mg/dL 7-21 (BEAKER) (test kcnd=838) CREATININE (BEAKER) (test 1.39 mg/dL 0.57-1.25 qxwj=504) GLUCOSE RANDOM (BEAKER) 194 mg/dL 70-105 (test jsel=988) CALCIUM (BEAKER) (test 9.7 mg/dL 8.4-10.2 ynvl=238) AST (SGOT) (BEAKER) (test 12 U/L 5-34 hnej=323) ALT (SGPT) (BEAKER) (test 15 U/L 6-55 vcbb=921) EGFR (BEAKER) (test 48 mL/min/1.73 sq m ESTIMATED GFR IS NOT uqhn=8538) ACCURATE CREATININE CLEARANCE IN PREDICTING GLOMERULAR FILTRATION RATE. ESTIMATED GFR IS NOT APPLICABLE FOR DIALYSIS PATIENTS. PROTHROMBIN TIME/[id number] 14:58:00 Test Item Value Reference Range Comments PROTIME (BEAKER) (test zuzf=851) 12.8 seconds 11.7-14.7 INR (BEAKER) (test imhc=217) 1.0 <=5.9 RECOMMENDED COUMADIN/WARFARIN INR THERAPY RANGESSTANDARD DOSE: 2.0 - 3.0 Includes: PROPHYLAXIS forvenous thrombosis, systemic embolization; TREATMENT for venous thrombosis and/or pulmonary embolus.HIGH RISK: Target INR is 2.5-3.5 for patients with mechanical heart valves.CBC W/PLT COUNT & AUTO [id number] 14:45:00 Test Item Value Reference Range Comments WHITE BLOOD CELL COUNT (BEAKER) (test chyv=811) 10.3 K/ L 3.5-10.5 RED BLOOD CELL COUNT (BEAKER) (test zlwj=503) 4.35 M/ L 4.63-6.08 HEMOGLOBIN (BEAKER) (test fvqn=367) 11.9 GM/DL 13.7-17.5 HEMATOCRIT (BEAKER) (test yyqv=670) 37.6 % 40.1-51.0 MEAN CORPUSCULAR VOLUME (BEAKER) (test uavc=056) 86.4 fL 79.0-92.2 MEAN CORPUSCULAR HEMOGLOBIN (BEAKER) (test 27.4 pg 25.7-32.2 fdik=019) MEAN CORPUSCULAR HEMOGLOBIN CONC (BEAKER) (test 31.6 GM/DL 32.3-36.5 hlkm=174) RED CELL DISTRIBUTION WIDTH (BEAKER) (test 16.5 % 11.6-14.4 rqip=689) PLATELET COUNT (BEAKER) (test zwhw=999) 158 K/CU MM 150-450 MEAN PLATELET VOLUME (BEAKER) (test lfgi=704) 11.1 fL 9.4-12.4 NUCLEATED RED BLOOD CELLS (BEAKER) (test 0 /100 WBC 0-0 skkz=364) NEUTROPHILS RELATIVE PERCENT (BEAKER) (test 73 % qcqa=100) LYMPHOCYTES RELATIVE PERCENT (BEAKER) (test 19 % ugnh=090) MONOCYTES RELATIVE PERCENT (BEAKER) (test 6 % pkda=239) EOSINOPHILS RELATIVE PERCENT (BEAKER) (test 1 % ilin=719) BASOPHILS RELATIVE PERCENT (BEAKER) (test 0 % qxfs=197) NEUTROPHILS ABSOLUTE COUNT (BEAKER) (test 7.54 K/ L 1.78-5.38 ztxd=787) LYMPHOCYTES ABSOLUTE COUNT (BEAKER) (test 1.96 K/ L 1.32-3.57 nnmf=254) MONOCYTES ABSOLUTE COUNT (BEAKER) (test 0.61 K/ L 0.30-0.82 lggz=395) EOSINOPHILS ABSOLUTE COUNT (BEAKER) (test 0.09 K/ L 0.04-0.54 rmum=696) BASOPHILS ABSOLUTE COUNT (BEAKER) (test 0.03 K/ L 0.01-0.08 jlct=068) IMMATURE GRANULOCYTES-RELATIVE PERCENT (BEAKER) 1 % 0-1 (test bbof=5875) CT, CTA [id number] 12:54:00Addendum BeginsREPORT STATUS:A Addendum: I agree with the previously described non vascular findings.. Additionally, the lungs demonstrate fibrotic changes which are most pronounced in the bilateral bases. Biapical pleural-parenchymal scarring is present. Signed: Dejon BlandMDReport Verified Date/Time: 04/20/2018 12:54: 28 Reading Location: [place] [address] Angio Body Reading RoomAddendum EndsFINAL REPORT CT [...] 5. An addendum will be dictated bythe Forest Science Professor Radiologist regarding the nonvascular findings. Signed: Puneet Espinoza MDReport Verified Date/Time: 14:19:03 Reading Location: [place] [address], CTA, [id number] 12:54:00Addendum BeginsREPORT STATUS:A Addendum: I agree with the previously described non vascular findings.. Additionally, the lungs demonstrate fibrotic changes which are most pronounced in the bilateral bases. Biapical pleural-parenchymal scarring is present. Signed : Dejon BlandMDReport Verified Date/Time: 04/20/2018 12:54:28 Reading Location: [place] [address] Angio Body Reading RoomAddendum EndsFINAL REPORT CT [...] 5. An addendum will be dictated bythe [employer] Professor Radiologist regarding the nonvascular findings. Signed: Puneet Espinoza Verified Date/Time: 14:19:03 Reading Location: [place] [address] Cardiology MRI POCT- [id number] 09:37:00 Test Item Value Reference Range Comments POC-CREATININE (KARMA) 1.3 mg/dL 0.6-1.3 TESTED AT [facility] [address] [facility] (test pfkh=[id number]) [facility] [address] POC-EGFR (KARMA) (test 52 mL/min/1.73M2 htbe=5796)
--- NOTE | 2019-05-08 01:08 | EDPHYS ---
Physician Documentation [facility] Name: iVctor Hugo Damon Age: 88 yrs Sex: Male : 1930 Arrival Date: 05/08/2019 Time: 00:08 Bed 20 Private MD: John Stahl V ED Physician Ritesh Marques HPI: 05/08 01:03 This 88 yrs old Male presents to ER via EMS with complaints of No complaint. ps1 01:03 patient was BIBEMS from [facility] for agitation. Patient was upset that he could not ps1 find his and staff reportedly would not tell him where she was. Patient is alert and oriented and does not have a medical complaint and does not want to be evaluated. No signs of agitation and patient is pleasant. . Historical: - Allergies: 00:48 PENICILLINS; fc - Home Meds: 00:48 gabapentin 300 mg Oral cap nightly [Active]; Gavilax 17 gram Oral pwpk 1 packet once fc daily [Active]; melatonin 3 mg Oral tab 2 tab nightly [Active]; I-Kary 1,000 unit-200 mg-60 unit-2 mg Oral tab twice a day [Active]; levothyroxine 50 mcg tab 1 tab once daily [Active]; Myrbetriq 25 mg Oral Tb24 1 tab once daily [Active]; nifedipine 90 mg Oral TbER 1 tab once daily [Active]; prednisone 20 mg Oral tab 1 tab once daily [Active]; propranolol 80 mg Oral Cs24 1 cap once daily [Active]; torsemide 10 mg Oral tab 1 tab once daily [Active]; tramadol 50 mg Oral tab 1 tab twice a day [Active]; warfarin 4 mg Oral tab 1 tab once daily [Active]; Tylenol-Codeine #3 300-30 mg oral tab 1 tab q 4 hrs prn [Active]; bisacodyl 5 mg Oral TbEC 1 tab daily prn [Active]; acetaminophen 325 mg Oral tab 2 tabs q4 hrs prn for Pain [Active]; - PMHx: 00:48 Atrial Fib; CAD; CVA; Diabetes - NIDDM; Hypertension; Hypothyroidism; fc - Immunization history:: Last tetanus immunization: unknown. - Social history:: Smoking status: Patient/guardian denies using tobacco, Patient/guardian denies using alcohol, street drugs. - Ebola Screening: : Patient negative for fever greater than or equal to 101.5 degrees Fahrenheit, and additional compatible Ebola Virus Disease symptoms Patient denies exposure to infectious person Patient denies travel to an Ebola-affected area in the 21 days before illness onset. ROS: 01:03 Constitutional: Negative for fever, chills, and weight loss, Eyes: Negative for injury, ps1 pain, redness, and discharge, ENT: Negative for injury, pain, and discharge, Cardiovascular: Negative for chest pain, palpitations, and edema, Respiratory: Negative for shortness of breath, cough, wheezing, and pleuritic chest pain, Abdomen/GI: Negative for abdominal pain, nausea, vomiting, diarrhea, and constipation, MS/Extremity: Negative for injury and deformity, Skin: Negative for injury, rash, and discoloration, Neuro: Negative for headache, weakness, numbness, tingling, and seizure, Psych: Negative for depression, anxiety, suicide ideation, homicidal ideation, and hallucinations. Exam: 01:03 Constitutional: This is a well developed, well nourished patient who is awake, alert, ps1 and in no acute distress. Head/Face: Normocephalic, atraumatic. Eyes: Pupils equal round and reactive to light, extra-ocular motions intact. Lids and lashes normal. Conjunctiva and sclera are non-icteric and not injected. ENT: Nares patent. No nasal discharge, no septal abnormalities noted. Tympanic membranes are normal and external auditory canals are clear. Oropharynx with no redness, swelling, or masses, exudates, or evidence of obstruction, uvula midline. Mucous membranes moist. Chest/axilla: Normal chest wall appearance and motion. Nontender with no deformity. No lesions are appreciated. Cardiovascular: Regular rate and rhythm. No gallops, murmurs, or rubs. Normal PMI, no JVD. No pulse deficits. Respiratory: Lungs have equal breath sounds bilaterally, clear to auscultation and percussion. No rales, rhonchi or wheezes noted. No increased work of breathing, no retractions or nasal flaring. Abdomen/GI: Soft, non-tender, with normal bowel sounds. No distension or tympany. No guarding or rebound. No evidence of tenderness throughout. Skin: Warm, dry with normal turgor. Normal color with no rashes, no lesions, and no evidence of cellulitis. MS/ Extremity: Pulses equal, no cyanosis. Neurovascular intact. Full, normal range of motion. Neuro: Awake and alert, GCS 15, oriented to person, place, time, and situation. Cranial nerves II-XII grossly intact. Sensory grossly intact. Psych: Awake, alert, with orientation to person, place and time. Behavior, mood, and affect are within normal limits. Vital Signs: 05/07 23:55 BP 171 / 62; Pulse 68; Resp 18; Temp 98.3(O); Pulse Ox 98% on R/A; Weight 86.18 kg (R); fc Height 6 ft. 0 in. (182.88 cm) (R); Pain 0/10; 05/08 00:40 BP 140 / 53; Pulse 65; Resp 17; Pulse Ox 99% on R/A; Pain 0/10; rr5 01:30 BP 133 / 70; Pulse 69; Resp 18; Pulse Ox 99% on R/A; Pain 0/10; rr5 02:30 BP 129 / 57; Pulse 74; Resp 17; Pulse Ox 99% on R/A; Pain 0/10; rr5 03:00 BP 148 / 54; Pulse 69; Resp 18; Pulse Ox 99% on R/A; ea 04:13 BP 135 / 59; Pulse 82; Resp 18; Pulse Ox 100% ; ea 05:00 BP 141 / 62; Pulse 75; Resp 17; Temp 98.; Pulse Ox 99% on R/A; rr5 06:00 BP 139 / 60; Pulse 79; Resp 19; Pulse Ox 99% ; rr5 06:40 BP 137 / 57; Pulse 71; Resp 18; Temp 97.5; Pulse Ox 99% on R/A; rr5 05/07 23:55 Body Mass Index 25.77 (86.18 kg, 182.88 cm) fc MDM: 01:03 Data reviewed: vital signs, nurses notes, and as a result, I will discharge patient. ps1 01:08 Patient medically screened. ps1 Administered Medications: No medications were administered Disposition: 05/08/19 01:08 Discharged to Home. Impression: Encounter for general adult medical examination. - Condition is Stable. - Medication Reconciliation Form, Thank You Letter, Antibiotic Education, Prescription Opioid Use form. - Follow up: John Stahl MD; When: As needed; Reason: Recheck today's complaints, Continuance of care, Re-evaluation by your physician. Follow up: Emergency Department; When: As needed; Reason: Worsening of condition. - Problem is new. - Symptoms are resolved. Signatures: Mahogany Lam RN Kimmie Sanderson RN RN ea Singer, Phillip, MD MD ps1 Corrections: (The following items were deleted from the chart) 06:49 01:08 05/08/2019 01:08 Discharged to Home. Impression: Encounter for general adult ea medical examination. Condition is Stable. Forms are Medication Reconciliation Form, Thank You Letter, Antibiotic Education, Prescription Opioid Use. Follow up: John Stahl; When: As needed; Reason: Recheck today's complaints, Continuance of care, Re-evaluation by your physician. Follow up: Emergency Department; When: As needed; Reason: Worsening of condition. Problem is new. Symptoms are resolved. ps1
--- NOTE | 2019-05-08 01:08 | ER ---
Nurse's Notes [facility] Name: Victor Hugo Damon Age: 88 yrs Sex: Male : 1930 Arrival Date: 05/08/2019 Time: 00:08 Bed 20 Private MD: John Stahl V Diagnosis: Encounter for general adult medical examination Presentation: 05/07 23:55 Presenting complaint: EMS states: that pt was aggressive with staff members at [facility] where he lives and they wanted him evaluated. Transition of care: patient was received from another setting of care ([facility]. Onset of symptoms was May 07, 2019. Risk Assessment: Do you want to hurt yourself or someone else? Patient reports no desire to harm self or others. Initial Sepsis Screen: Does the patient meet any 2 criteria? No. Patient's initial sepsis screen is negative. Does the patient have a suspected source of infection? No. Patient's initial sepsis screen is negative. Care prior to arrival: None. 23:55 Method Of Arrival: EMS: [facility] 23:55 Acuity: ESTHELA 4 fc Historical: - Allergies: 05/08 00:48 PENICILLINS; fc - Home Meds: 00:48 gabapentin 300 mg Oral cap nightly [Active]; Gavilax 17 gram Oral pwpk 1 packet once fc daily [Active]; melatonin 3 mg Oral tab 2 tab nightly [Active]; I-Kary 1,000 unit-200 mg-60 unit-2 mg Oral tab twice a day [Active]; levothyroxine 50 mcg tab 1 tab once daily [Active]; Myrbetriq 25 mg Oral Tb24 1 tab once daily [Active]; nifedipine 90 mg Oral TbER 1 tab once daily [Active]; prednisone 20 mg Oral tab 1 tab once daily [Active]; propranolol 80 mg Oral Cs24 1 cap once daily [Active]; torsemide 10 mg Oral tab 1 tab once daily [Active]; tramadol 50 mg Oral tab 1 tab twice a day [Active]; warfarin 4 mg Oral tab 1 tab once daily [Active]; Tylenol-Codeine #3 300-30 mg oral tab 1 tab q 4 hrs prn [Active]; bisacodyl 5 mg Oral TbEC 1 tab daily prn [Active]; acetaminophen 325 mg Oral tab 2 tabs q4 hrs prn for Pain [Active]; - PMHx: 00:48 Atrial Fib; CAD; CVA; Diabetes - NIDDM; Hypertension; Hypothyroidism; fc - Immunization history:: Last tetanus immunization: unknown. - Social history:: Smoking status: Patient/guardian denies using tobacco, Patient/guardian denies using alcohol, street drugs. - Ebola Screening: : Patient negative for fever greater than or equal to 101.5 degrees Fahrenheit, and additional compatible Ebola Virus Disease symptoms Patient denies exposure to infectious person Patient denies travel to an Ebola-affected area in the 21 days before illness onset. Screenin/08 23:55 Abuse screen: Denies threats or abuse. Abuse screen: Denies threats or abuse. fc Nutritional screening: No deficits noted. Tuberculosis screening: No symptoms or risk factors identified. 23:55 Fall Risk Secondary diagnosis (15 points) impaired mobility, Gait- Impaired (20 pts.). rr5 Total Handy Fall Scale indicates Low Risk Score (25-44 pts). Fall prevention measures have been instituted. Side Rails Up X 2 Placed close to Nursing Station Frequent Obs/Assesments occuring As available Patient and Family Educated on Fall Prevention Program and strategies. Assessment: 05/08 00:11 General: Appears in no apparent distress. comfortable, Behavior is calm, cooperative, rr5 appropriate for age. Pain: Denies pain. Neuro: Level of Consciousness is awake, alert, obeys commands, Oriented to person, place, time, situation, Appropriate for age. Cardiovascular: Capillary refill < 3 seconds Patient's skin is warm and dry. Respiratory: Airway is patent Respiratory effort is even, unlabored, Respiratory pattern is regular, symmetrical. GI: No signs and/or symptoms were reported involving the gastrointestinal system. : No signs and/or symptoms were reported regarding the genitourinary system. EENT: No signs and/or symptoms were reported regarding the EENT system. Derm: Skin is fragile, is thin, Wound noted right forearm Wound is abrasion. Musculoskeletal: Circulation, motion, and sensation intact. Capillary refill < 3 seconds, splint at right pointing finger noted. 01:40 Reassessment: Patient appears in no apparent distress at this time. Patient is alert, rr5 oriented x 3, equal unlabored respirations, skin warm/dry/pink. for discharge. informed [employer] [employer]. lay staff ([phone]). she said she will just call her boss then she will call back Patient denies pain at this time. Patient states feeling better. Patient states symptoms have improved. 02:25 Reassessment: Patient appears in no apparent distress at this time. Patient is alert, rr5 oriented x 3, equal unlabored respirations, skin warm/dry/pink. follow up to [facility] staff recinos. she said if they can get the patient later in the morning. Charge nurse aware, she will consult to feed house supervisor. waiting for the decision. 03:20 Reassessment: Patient appears in no apparent distress at this time. Patient is alert, rr5 oriented x 3, equal unlabored respirations, skin warm/dry/pink. sandwich, coffee and juice given with good appettite. 03:40 Reassessment: spoke to [facility] staff. they said to pick the patient at 0600H today. rr5 04:40 Reassessment: Patient appears in no apparent distress at this time. asleep on bed rr5 comfortably on bed. 05:15 Reassessment: Patient appears in no apparent distress at this time. Patient and/or rr5 family updated on plan of care and expected duration. Pain level reassessed. awaiting for transport going home. 06:10 Reassessment: Patient appears in no apparent distress at this time. Patient is alert, rr5 oriented x 3, equal unlabored respirations, skin warm/dry/pink. follow up to [facility] staff recinos, she said someone will come now. 06:45 Reassessment: Patient and/or family updated on plan of care and expected duration. Pain ea level reassessed. Patient is alert, oriented x 3, equal unlabored respirations, skin warm/dry/pink. Lay at facility for transfer back to [facility]. Discharge instruction given to pt and facility staff, both verbalized the understanding of instruction. Pt taken via wheelchair to vehicle. Accompanied by [facility] staff. Pt tolerating well. Patient denies pain at this time. Patient states feeling better. Vital Signs: 05/07 23:55 BP 171 / 62; Pulse 68; Resp 18; Temp 98.3(O); Pulse Ox 98% on R/A; Weight 86.18 kg (R); fc Height 6 ft. 0 in. (182.88 cm) (R); Pain 0/10; 05/08 00:40 BP 140 / 53; Pulse 65; Resp 17; Pulse Ox 99% on R/A; Pain 0/10; rr5 01:30 BP 133 / 70; Pulse 69; Resp 18; Pulse Ox 99% on R/A; Pain 0/10; rr5 02:30 BP 129 / 57; Pulse 74; Resp 17; Pulse Ox 99% on R/A; Pain 0/10; rr5 03:00 BP 148 / 54; Pulse 69; Resp 18; Pulse Ox 99% on R/A; ea 04:13 BP 135 / 59; Pulse 82; Resp 18; Pulse Ox 100% ; ea 05:00 BP 141 / 62; Pulse 75; Resp 17; Temp 98.; Pulse Ox 99% on R/A; rr5 06:00 BP 139 / 60; Pulse 79; Resp 19; Pulse Ox 99% ; rr5 06:40 BP 137 / 57; Pulse 71; Resp 18; Temp 97.5; Pulse Ox 99% on R/A; rr5 05/07 23:55 Body Mass Index 25.77 (86.18 kg, 182.88 cm) ED Course: 05/07 23:55 Arm band placed on Patient placed in an exam room, on a stretcher. 05/08 00:08 Patient arrived in ED. am2 00:08 John Stahl MD is Private Physician. am2 00:09 Andrews Wood, LOLLY is Primary Nurse. rr5 00:10 Patient has correct armband on for positive identification. Bed in low position. Call rr5 light in reach. Side rails up X2. Pulse ox on. NIBP on. 00:41 Triage completed. fc 00:57 Ritesh Marques MD is Attending Physician. ps1 01:07 John Stahl MD is Referral Physician. ps1 02:35 No provider procedures requiring assistance completed. Patient did not have IV access rr5 during this emergency room visit. 06:25 Diet: Patient given snack. Tolerated well. rr5 Administered Medications: No medications were administered Output: 00:43 Urine: 300ml (Voided); Total: 300ml. rr5 Outcome: 01:08 Discharge ordered by . ps1 06:48 Discharged to Assisted Living facility. ea 06:48 Condition: stable 06:48 Discharge instructions given to patient, retirement, Instructed on discharge instructions, follow up and referral plans. Demonstrated understanding of instructions, follow-up care. 06:49 Patient left the ED. ea Signatures: Mahogany Lam, RN RN Trish Walker am2 Kimmie Weathers RN RN Ritesh Macias MD MD ps1 Andrews Wood RN RN rr5 Corrections: (The following items were deleted from the chart) 06:48 06:45 Reassessment: Patient and/or family updated on plan of care and expected ea duration. Pain level reassessed. Patient is alert, oriented x 3, equal unlabored respirations, skin warm/dry/pink. Lay at facility for transfer back to [facility]. Pt taken via wheelchair to vehicle. Accompanied by [facility] staff. Pt tolerating well. Patient denies pain at this time. Patient states feeling better. ea
[2019-05-08 07:02] VITALS: O2SAT 99
[2019-05-08 07:05] VITALS: BP 137/57; TEMP 97.5
== END 2019-05-08 06:49 | disposition home or self-care (01) ==
LOC: ER 00:05
DX: Z00.00 Encounter for general adult medical examination without abnormal findings (principal); I10 Essential (primary) hypertension; E11.9 Type 2 diabetes mellitus without complications; E03.9 Hypothyroidism, unspecified; I48.91 Unspecified atrial fibrillation; I25.10 Atherosclerotic heart disease of native coronary artery without angina pectoris; Z86.73 Personal history of transient ischemic attack (TIA), and cerebral infarction without residual deficits
CPT/HCPCS: 99283